=== PATIENT | female | born 1955 | race Caucasian/White ===

== ENCOUNTER 2020-12-15 06:28 | Day surgery (SDC) | payer BC, MEDICARE ==
[2020-12-12 14:32] VITALS: BMI 22.6
[~2020-12-15 06:28] MED LIST: ALPRAZolam 0.25 MG TAB PO PRN; ASPIRIN 325 MG TAB PO STA; HEPARIN SODIUM,PORCINE 10,000 UNIT in SODIUM CHLORIDE 0.9% 1,000 ML IRRIGATION PRN; HEPARIN SODIUM,PORCINE 2,500 UNIT in SODIUM CHLORIDE 0.9% 250 ML IRRIGATION PRN; NITROGLYCERIN SL TABS 0.4 MG TAB SUBLINGUAL PRN; SODIUM CHLORIDE 0.9% 1,000 ML in EMPTY BAG 1 BAG IV ONE
[2020-12-15 07:03] VITALS: RESP 18; TEMP 98.8
[2020-12-15] MEDS ORDERED: fentaNYL (PF) 50 MCG/ML 2 ML AMP ONE (07:12)
[2020-12-15] MEDS ORDERED: IV FLUID CONTINUATION 950 ML IV ONE (07:26)
[2020-12-15] MEDS: BENZOCAINE SPRAY 1 CAN MUCOUS MEM ONE ×2 (07:26→07:28)
[2020-12-15] MEDS ORDERED: fentaNYL (PF) 50 MCG/ML 2 ML AMP IV ONE (07:30)
[2020-12-15] MEDS ORDERED: MIDAZOLAM 2 MG/2 ML VIAL IV ONE (07:30)
[2020-12-15] MEDS ORDERED: LIDOCAINE 1% INJ 10MG/ML (20 ML MDV) ONE (08:41)
[2020-12-15] MEDS ORDERED: MIDAZOLAM 2 MG/2 ML VIAL IVP ONE (08:50)
[2020-12-15] MEDS ORDERED: LIDOCAINE 1% INJ 10MG/ML (20 ML MDV) SQ ONE (08:50)
[2020-12-15] MEDS ORDERED: IOPAMIDOL-370 100ML BTL INJ ONE (09:20)
[2020-12-15 09:28] LABS: O2 Sat Blood Gas 70.2 %
[2020-12-15 09:32] LABS: O2 Sat Blood Gas 68.7 %
--- NOTE | 2020-12-15 12:16 | P.GSCN ---
History of Present Illness Consult date: 12/15/20 Reason for Consult: Aortic stenosis, coronary artery disease of the right coronary artery Requesting physician: Sariah Lee History of present illness: This is a 65 year old active female who follows on an outpatient basis with Dr. Dago Li. 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 She has been experiencing increasing shortness of breath with activity which has gotten progressively worse over the last 2 months. She denies any chest pain, shortness of breath with rest, or syncopal episodes. She was referred to Dr. VIKAS Lee from [facility]. She underwent transthoracic echocardiogram in the office demonstrating normal left ventricular size and function with EF 55- 60%, mild left ventricular hypertrophy, no regional wall motion abnormalities, mild to moderate mitral regurgitation, bicuspid severely calcified aortic valve with valve area 0.6 cm and mean gradient 73 mmHg, moderate aortic regurgitation, moderate tricuspid regurgitation, mild pulmonic regurgitation with mild pulmonary hypertension. She was recommended to undergo heart catheterization and transesophageal echocardiogram for further evaluation which were completed today. Heart catheterization demonstrated right coronary artery ostial calcified stenosis of 85% without any other significant coronary disease. Transesophageal echocardiogram demonstrated severe aortic stenosis and mild aortic regurgitation, valve area 0.5 cm with a peak/mean gradients 135/45 mmHg, mild mitral regurgitation, biatrial enlargement, mild pulmonary hypertension, normal left ventricular function. Due to these findings consultation was placed to Dr. Loretta Wolff from cardiothoracic surgery. Review of Systems Review of systems was completed and was negative except as noted - Cardiovascular Reports as per HPI, Reports decreased exercise tolerance, Reports dyspnea on exertion, Reports shortness of breath Past Medical History Past Medical History: CVA/TIA, Hyperlipidemia, Hypertension, Thyroid Disorder Additional Past Medical History / Comment(s): heart murmur,SOB at times,freq soft stools History of Any Multi-Drug Resistant Organisms: None Reported Past Surgical History: Section Additional Past Surgical History / Comment(s): anibal feet,rt hand,c sect x2,breast bx Past Anesthesia/Blood Transfusion Reactions: No Reported Reaction Additional Past Anesthesia/Blood Transfusion Reaction / Comm: no hx blood transfusion Past Psychological History: No Psychological Hx Reported Smoking Status: Former smoker Past Alcohol Use History: None Reported Past Drug Use History: None Reported Additional History: No family history of premature coronary artery disease - Past Family History Mother Family Medical History: Cancer Additional Family Medical History / Comment(s): cervical Sister(s) Family Medical History: Cancer Additional Family Medical History / Comment(s): breast Father Family Medical History: Cancer Additional Family Medical History / Comment(s): colon Medications and Allergies Home Medications Medication Instructions Recorded Confirmed Type Aspirin EC [Ecotrin Low Dose] 81 mg PO HS 12/12/20 12/15/20 History Atorvastatin [Lipitor] 40 mg PO HS 12/13/20 12/15/20 History Baclofen 10 mg PO HS 12/13/20 12/15/20 History HYDROcodone/APAP 5-325MG [[place] 1 tab PO BID PRN 12/13/20 12/15/20 History 5-325] Ibuprofen [Motrin] 800 mg PO BID PRN 12/13/20 12/15/20 History Levothyroxine Sodium [Synthroid] 25 mcg PO HS 12/13/20 12/15/20 History Metoprolol Tartrate [Lopressor] 12.5 mg PO BID 12/13/20 12/15/20 History Sertraline [Zoloft] 25 mg PO HS 12/13/20 12/15/20 History amLODIPine [Norvasc] 5 mg PO HS 12/13/20 12/15/20 History Allergies Allergy/AdvReac Type Severity Reaction Status Date / Time No Known Allergies Allergy Verified 12/15/20 06:46 Surgical - Exam Vital Signs Temp Pulse Resp BP Pulse Ox 98.8 F 54 L 18 123/60 97 12/15/20 07:02 12/15/20 07:02 12/15/20 07:02 12/15/20 07:02 12/15/20 07:02 CONSTITUTIONAL: Awake and alert, appears comfortable, cooperative, well- developed, well-nourished, no pain, no acute distress EYES: Pupils equal, round, reactive to light, normal ocular movement ENT: Moist mucous membranes without oral lesions present NECK: No masses, no bruits, trachea midline RESPIRATORY: Lungs sounds clear to auscultation bilaterally. Respirations even, nonlabored. Currently on room air with oxygen saturation 97%. Strong cough. No chest wall deformities. No clubbing or cyanosis present CARDIOVASCULAR: S1, S2 present, loud systolic murmur present. Regular rate and rhythm, sinus rhythm on telemetry. Palpable peripheral pulses bilaterally. No edema present. No calf pain or tenderness noted. No significant lower extremity varicosities noted. GASTROINTESTINAL: Abdomen soft, nontender, nondistended without masses or organomegaly noted. There is no rebound or guarding present. Active bowel sounds present 4 quadrants. GENITOURINARY: Deferred INTEGUMENTARY: Skin is warm and dry with evidence of good perfusion. NEUROLOGIC: Cranial nerves II through XII intact, normal coordination, no obvious motor or sensory deficits, speech is normal MUSKULOSKELETAL: Able to move all extremities, strength equal bilaterally, normal posture PSYCHIATRIC: Alert and oriented to person place and time, appropriate affect, intact judgment and insight Results - Imaging Additional studies: Heart catheterization and FIDEL findings reviewed Assessment and Plan Assessment: 1. Severe aortic stenosis, valve area 0.5 cm, mean gradient of 45 mmHg on FIDEL 2. Right coronary artery disease 3. Hypertension 4. Hyperlipidemia, treated 5. Hypothyroid 6. History of CVA to the right eye followed by TIA 7. Previous tobacco dependence Plan: The patient was seen and examined in the extended stay area, case was discussed with Dr. Wolff. The usual perioperative course of open heart surgery was discussed in detail with the patient, risks and benefits were reviewed, all questions were answered. Preoperative testing was initiated. The patient may be discharged home once testing has been completed to follow up in the cardiothoracic surgery office with Dr. Wolff next week December 20 at 1:30 PM. We have tentatively scheduled her for surgery December 26 as long as there are no red flags in her preoperative testing and she has obtained dental clearance. This was discussed in great detail with the patient and she is agreeable. We did attempt to call her dentist to obtain an urgent appointment, however he is closed today. Message was left and we will try to get the patient in as quickly as possible as she has not seen her dentist in about a year. We recommend continuing maximal medical therapy. The patient was advised to refrain from any strenuous lifting or pushing. More recommendations to follow. Thank you Dr. Lee for this consult Time with Patient: Greater than 30
--- NOTE | 2020-12-15 12:59 | US ---
EXAMINATION TYPE: US carotid duplex BILAT DATE OF EXAM: 12/15/2020 COMPARISON: NONE CLINICAL HISTORY: preop cardiac surgery. PreOp EXAM MEASUREMENTS: RIGHT: Peak Systolic Velocity (PSV) cm/sec ----- Right CCA: 98.7 ----- Right ICA: 151.5 ----- Right ECA: 81.4 ICA/CCA ratio: 1.5 RIGHT: End Diastole cm/sec ----- Right CCA: 18.7 ----- Right ICA: 51.2 ----- Right ECA: 0.0 LEFT: Peak Systolic Velocity (PSV) cm/sec ----- Left CCA: 87.9 ----- Left ICA: 112.9 ----- Left ECA: 72.3 ICA/CCA ratio: 1.3 LEFT: End Diastole cm/sec ----- Left CCA: 16.7 ----- Left ICA: 38.6 ----- Left ECA: 0.0 VERTEBRALS (direction of flow): Right Vertebral: Antegrade Left Vertebral: Antegrade Rhythm: Normal Silveira scale images show fairly moderate eccentric plaque at right carotid bulb level and more focal mi ld to moderate plaque left carotid bulb level. There is elevated peak systolic and end diastolic [place] in the right internal carotid artery. No increased left-sided velocities. IMPRESSION: Moderate atherosclerotic changes bilaterally right greater than left. I suspect right-si ded stenosis approaching 50% but based on velocity measurements a hemodynamic significant stenosis be tween 50-69% cannot be excluded. Criteria for Assigning % of Stenosis / Diameter reduction (Estimation based on the indirect measurements of the internal carotid artery velocities (ICA PSV). 1. Normal (no stenosis)=ICA PSV < 125 cm/s: ratio < 2.0: ICA EDV<40 cm/s. 2. Less than 50% stenosis=ICA PSV < 125 cm/s: ratio < 2.0: ICA EDV<40 cm/s. 3. 50 to 69% stenosis=ICA PSV of 125 to 230 cm/s: ration 2.0 ? 4.0: ICA EDV 40-100 cm/s. 4. Greater than 70% stenosis to near occlusion= ICA PSV > 230 cm/s: ratio > 4.0: ICA EDV > 100 cm/s. 5. Near occlusion= ICA PSV velocities may be low or undetectable: variable ratio and ICA EDV. 6. Total occlusion=unable to detect flow.
[2020-12-15 15:18] LABS: Basophils % (A) 0 %; Eosinophils # (A) 0.1 k/uL (0-0.7); Eosinophils % (A) 1 %; HCT 32.9 % (34.0-46.0); HGB 10.7 gm/dL (11.4-16.0); Lymphocytes # (A) 1.3 k/uL (1.0-4.8); Lymphocytes % (A) 18 %; MCHC 32.5 g/dL (31.0-37.0); MCV 95.5 fL (80.0-100.0); Mean Platelet Volume 7.7; Monocytes # (A) 0.6 k/uL (0-1.0); Monocytes % (A) 8 %; Neutrophils # (A) 5.4 k/uL (1.3-7.7); Neutrophils % (A) 72 %; Platelet Count 231 k/uL (150-450); RBC 3.45 m/uL (3.80-5.40); RDW 13.3 % (11.5-15.5); WBC 7.5 k/uL (3.8-10.6)
[2020-12-15 15:24] LABS: Partial Thromboplastin Time 23.4 sec (22.0-30.0); Prothrombin Time 10.4 sec (9.0-12.0)
[2020-12-15 15:32] LABS: ALT 75 U/L (4-34); AST 45 U/L (14-36); African American GFR (CKD) >90 (>60 ml/min/1.73 sqM); Albumin 3.7 g/dL (3.5-5.0); Alkaline Phosphatase 57 U/L (38-126); Anion Gap 5 mmol/L; Blood Urea Nitrogen 16 mg/dL (7-17); Calcium 8.8 mg/dL (8.4-10.2); Carbon Dioxide 27 mmol/L (22-30); Chloride 107 mmol/L (98-107); Glucose 103 mg/dL (74-99); Magnesium 1.9 mg/dL (1.6-2.3); Non-African American GFR(CKD) >90 (>60 ml/min/1.73 sqM); Potassium 4.2 mmol/L (3.5-5.1); Sodium 139 mmol/L (137-145); Total Bilirubin 0.5 mg/dL (0.2-1.3); Total Protein 5.9 g/dL (6.3-8.2)
[2020-12-15 15:55] VITALS: BP 146/64; PULSE 64
--- NOTE | 2020-12-15 15:55 | CC ---
CARDIAC CATHETERIZATION REPORT DATE OF SERVICE: 12/15/2020. PROCEDURE: Right heart catheterization and coronary angiography. PERFORMED BY: Dr. Becky Lee. Moderate conscious sedation time was 30 minutes. Patient was administered Versed. Oxygen saturation, hemodynamics and EKG were monitored closely. CLINICAL INFORMATION: Mrs. Monique Silva is a 65-year-old lady with a past history of smoking. She has hypertension, hyperlipidemia and recently had increasing symptoms of shortness of breath. Clinical evaluation revealed severe aortic stenosis. Patient was advised a transesophageal echo and a right and left heart catheterization and brought in for the procedure electively after due discussion. Patient had a transesophageal echo which confirmed severe aortic stenosis. PROCEDURE NOTE: Under local anesthesia and strict aseptic precautions, a 6-Upper Sorbian introducer was placed in the right femoral artery and an 8-Upper Sorbian introducer in the right femoral vein. Using a balloon-tipped catheter, I performed right heart catheterization, checked the hemodynamics and saturations, and the catheter was left in the pulmonary artery. Thermodilution cardiac output was then performed. Subsequently, using JR4 and a JL3.5 diagnostic catheters, I performed selective coronary angiography. I did not cross the aortic valve. The arterial sheath was taken out and Angio-Seal device used to secure hemostasis, and the venous sheath was taken out and manual compression was employed. The patient was then sent back to the extended-stay unit. The results were discussed in detail with the patient as well as her . I am recommending aortic valve replacement and a single vein graft or a right internal mammary artery graft to the right coronary artery, which has an ostial lesion of 80% or more. CARDIAC CATHETERIZATION FINDINGS: The right atrial pressure was 7 mmHg, right ventricular pressure was 40/7, pulmonary arterial pressure was 40/13 with a mean of 23, pulmonary capillary wedge pressure was 23 mmHg. The thermodilution cardiac output was 4.4 L and Angel cardiac output was 6.0 L. The pulmonary arterial saturation was 69% and femoral arterial saturation was 95%. There was no oxygen step-up. CORONARY ANGIOGRAPHY FINDINGS: RIGHT CORONARY ARTERY: This is a dominant vessel. There is moderate calcification at the ostium. There is 80% ostial lesion best seen in the ALANIZ cranial projection. Distally the vessel is of large caliber, bifurcates into a small PLV, large PDA and supplies sizable amount of myocardium. No other areas of significant disease noted. LEFT MAIN CORONARY ARTERY: Short patent vessel, free of significant disease. It bifurcates into LAD and circumflex. LEFT ANTERIOR DESCENDING CORONARY ARTERY: Good-caliber vessel extends along the anterior wall, gives off septal and diagonal branches, runs all the way to the apex, has minor irregularities and no significant disease. LEFT POSTERIOR CIRCUMFLEX CORONARY ARTERY: Good-caliber, good-distribution vessel, gives off a large obtuse marginal that runs laterally and distal posterolateral branch which has minor irregularities. No significant disease. FINAL IMPRESSION: This patient has mild pulmonary hypertension, no shunt with no oxygen step-up, normal cardiac output. She has a right-dominant system with an ostial calcified 80% right coronary stenosis. The left main, LAD and circumflex have minor irregularities. No significant disease. RECOMMENDATIONS: I am recommending aortic valve replacement and a single-vessel graft to the RCA, probably a right internal mammary artery graft. Details and findings were reviewed with the patient and her , and I also spoke to Dr. Wolff, who will see the patient hopefully early next week. She will be discharged later on today if she remains stable. MMODL / IJN: [id number] /
--- NOTE | 2020-12-15 16:05 | P.TEE ---
Indications for Procedure(s): Aortic stenosis Date of Procedure: 12/15/20 Preoperative Diagnosis: Severe aortic stenosis Postoperative Diagnosis: Severe aortic stenosis Procedure(s) Performed: FIDEL Description of Procedure(s): INDICATION: This is a 65-year-old female with symptoms of exertional shortness of breath who was evaluated by Dr. VIKAS Lee and were found to have evidence of severe aortic stenosis by transthoracic echocardiogram. Patient is advised to have a FIDEL examination. Patient was explained the risks and benefits of the procedure CONSENT: . Informed verbal consent was obtained from the patient PROCEDURE: Patient was brought to the lab in a fasting state. Patient was prepped and draped in the usual fashion. She was given 2 mg of Versed and 50 g of fentanyl for sedation. The throat was sprayed with Hurricaine. A lubricated Omni probe was advanced into the esophagus and stomach without difficulty. Multiple views were obtained both from the summer can esophagus. Patient tolerated the procedure well. Color, pulsed and continuous wave Doppler studies were performed. Saline contrast bubble injection is also performed. Patient tolerated the procedure well. No immediate complications. FINDINGS: The aortic valve is tricuspid with limited only excursion. By planimetry valve area of 0.5 cm was obtained. There is mild eccentric aortic regurgitation. The aortic root diameter is normal. There is mild mitral regurgitation. Otherwise mitral valve appeared to be normal. There is mild tricuspid regurgitation with [id number] pulmonary hypertension. There is biatrial enlargement. The left atrial appendage is free of any clot. The interatrial septum appeared to be intact without any definite shunt. Saline contrast bubble injection did not show any crossing of the bubbles. Left ventricular function is preserved. The aorta showed mild plaque. IMPRESSION: #1. Severe aortic stenosis which is calcific in nature with mild eccentric aortic regurgitation #2. Mild mitral and tricuspid regurgitation. #3. Biatrial enlargement. #4. No clot in the left atrial appendage. #5. No PFO #6. Normal LV function PLAN: . Proceed with cardiac catheterization. Patient's needs aortic valve replacement
[2020-12-15 16:11] LABS: Cholesterol 111 mg/dL (<200); HDL Cholesterol 52 mg/dL (40-60); LDL Cholesterol,Calculated 38 mg/dL (0-99); Triglycerides 107 mg/dL (<150)
--- NOTE | 2020-12-15 16:20 | XR ---
EXAMINATION TYPE: XR chest 2V DATE OF EXAM: 12/15/2020 COMPARISON: None HISTORY: 65-year-old female preop open heart surgery. TECHNIQUE: Frontal and lateral views FINDINGS: Heart borderline to mildly enlarged. Mild interstitial prominence of the chronic appearance. No conso lidation or pleural effusion. Aorta within normal limits. IMPRESSION: Borderline to mild cardiomegaly. Chronic appearing changes. No definite acute process.
[2020-12-15 16:34] LABS: Appearance,Urine Clear (Clear); Bacteria,Urine Rare /hpf; Bilirubin,Urine Negative (Negative); Blood,Urine Small (Negative); Color,Urine Light Yellow; Glucose,Urine (UA) Negative (Negative); Ketones,Urine Negative (Negative); Leukocyte Esterase,Urine Negative (Negative); Nitrite,Urine Negative (Negative); PH, Urine 7.5 (5.0-8.0); Protein,Urine Negative (Negative); RBC,Urine 6 /hpf (0-5); Specific Gravity,Urine 1.026 (1.001-1.035); Squamous Epithelial Cell,Urine <1 /hpf (0-4); Urobilinogen,Urine <2.0 mg/dL (<2.0); WBC,Urine 2 /hpf (0-5)
[2020-12-15 23:48] LABS: Hemoglobin A1C 5.4 % (4.0-6.0)
[2020-12-16 04:38] LABS: Hepatitis A Antibody IgM Non-Reactive (Non-Reactive); Hepatitis B Core IgM Non-Reactive (Non-Reactive); Hepatitis B Surface Antigen Non-Reactive (Non-Reactive); Hepatitis C IgG Antibody Non-Reactive (Non-Reactive)
--- NOTE | 2020-12-20 10:55 | P.VSCSTY ---
Greater Saphenous Vein Mapping This is bilateral lower extremity greater saphenous vein mapping. Date of service: 12/15/2020 Vein quality and ultrasound appearance: We see no intraluminal thrombus or wall changes. Vein size groin right : 5.3 x 4.5 groin left: 5.0 x 4.3 High thigh right: 3.1 x 2.9 high thigh left: 3.1 x 2.5 Mid thigh right: 3.1 x 3.4 mid thigh left: 3.3 x 3.1 Above-knee right: 3.4 x 4.5above-knee left: 2.8 x 2.6 Below knee right: 2.4 x 2.2 below-knee left: 2.6 x 2.7 Mid calf right: 2.5 x 2.2 mid calf left: 2.6 x 2.1 Ankle right: 1.7 x 1.7 ankle left: 2 x 1.9 Impression: Usable bilateral greater saphenous vein. Ankle area a bit small bilaterally, especially on the right.
== END 2020-12-15 15:18 | disposition home or self-care (01) ==
LOC: CATHCVL 06:28
PROVIDERS: ATTEND Internal Medicine Interventional Cardiology
DX: I08.3 Combined rheumatic disorders of mitral, aortic and tricuspid valves (principal); I27.20 Pulmonary hypertension, unspecified; I25.10 Atherosclerotic heart disease of native coronary artery without angina pectoris; R06.02 Shortness of breath; R00.2 Palpitations; R07.89 Other chest pain; I10 Essential (primary) hypertension; E78.00 Pure hypercholesterolemia, unspecified; E03.9 Hypothyroidism, unspecified; E78.5 Hyperlipidemia, unspecified; I77.9 Disorder of arteries and arterioles, unspecified; Z20.822 Contact with and (suspected) exposure to COVID-19; Z72.0 Tobacco use; Z79.890 Hormone replacement therapy; Z79.899 Other long term (current) drug therapy; Z86.73 Personal history of transient ischemic attack (TIA), and cerebral infarction without residual deficits; Z87.891 Personal history of nicotine dependence; Z98.890 Other specified postprocedural states; Z79.82 Long term (current) use of aspirin; Z80.9 Family history of malignant neoplasm, unspecified; Z80.49 Family history of malignant neoplasm of other genital organs; Z80.3 Family history of malignant neoplasm of breast; Z80.0 Family history of malignant neoplasm of digestive organs
CPT/HCPCS: 94150; 93312; 93320; 93325; 93456; 80061; 80053; 80074; 85018; 84443; 82810; 83735; 85025; 85610; 85730; 81001; 87070; 83036; 71046; 93970; 93880; C1760; C1769 ×3; C1894 ×2; U0003; U0005; J2250; J2001; J3010; Q9967; 86850; 86900; 86901

== ENCOUNTER 2020-12-26 05:44 | Inpatient (IN) | payer BC ==
[~2020-12-26 05:44] MED LIST changes: +ALBUMIN HUMAN 25% 50 ML IV ONE; +ALBUMIN HUMAN 5% 500 ML IVPB ONE; -ALPRAZolam 0.25 MG TAB PO PRN; +ASPIRIN 325 MG TAB PO ONE; -ASPIRIN 325 MG TAB PO STA; +ATORVASTATIN 10 MG TAB PO ONE; +CALCIUM CHLORIDE 100 MG/ML 10 ML SYRINGE IV ONE; +CHLORHEXIDINE GLUCONATE 15 ML CUP MUCOUS MEM ONE; +CLEVIDIPINE BUTYRATE 25 MG in EMPTY BAG 1 BAG IV ONE; +DEXTROSE 5% IN WATER 1,000 ML with POTASSIUM CHLORIDE 110 MEQ, MAGNESIUM SULFATE 16 MEQ... IV ONE; +DEXTROSE 5% IN WATER 1,000 ML with POTASSIUM CHLORIDE 25 MEQ, SODIUM CHLORIDE 4MEQ/ML V... IRRIGATION ONE; +HEPARIN SODIUM 1,000 UN/ML (10ML VL) IV ONE; -HEPARIN SODIUM,PORCINE 10,000 UNIT in SODIUM CHLORIDE 0.9% 1,000 ML IRRIGATION PRN; -HEPARIN SODIUM,PORCINE 2,500 UNIT in SODIUM CHLORIDE 0.9% 250 ML IRRIGATION PRN; +HEPARIN SODIUM,PORCINE 5,000 UNIT in SODIUM CHLORIDE 0.9% 500 ML 500 ML IV ONE; +INSULIN REGULAR 100 UNIT in SODIUM CHLORIDE 0.9% 100 ML IV ONE; +LACTATED RINGERS 1,000 ML IV ONE; +LACTATED RINGERS 1,000 ML IV SCH; +MAGNESIUM SULFATE MG 500 MG/ML IV ONE; +MANNITOL 25% 12.5 GM/50 ML VIAL IV ONE; +METOPROLOL TARTRATE 12.5 MG TAB PO ONE; +NITROGLYCERIN SL TABS 0.4 MG TAB SUBLINGUAL ONE; -NITROGLYCERIN SL TABS 0.4 MG TAB SUBLINGUAL PRN; +NITROGLYCERIN-D5W PMX 25 MG/250 ML BTL IV ONE; +NITROGLYCERIN-D5W PMX 50 MG in DEXTROSE/WATER 1 250ML.BAG IV ONE; +NOREPINEPHRINE 4 MG in SODIUM CHLORIDE 0.9% 250 ML IV ONE; +PAPAVERINE 360 MG in SODIUM CHLORIDE 0.9% 90 ML IV ONE; +PHENYLEPHRINE 10 MG/ML VIAL IV ONE; +PHENYLEPHRINE 40 MG in SODIUM CHLORIDE 0.9% 250 ML IV ONE; +PROTAMINE SULFATE 10 MG/ML 25 ML VIAL IV ONE; +PROTAMINE SULFATE 250 MG in EMPTY BAG 1 BAG IV ONE; +SODIUM BICARB 8.4% 50 ML SYR (1 MEQ/ML) IV ONE; +SODIUM CHLORIDE 0.9% 1,000 ML IV ONE; -SODIUM CHLORIDE 0.9% 1,000 ML in EMPTY BAG 1 BAG IV ONE; +TRANEXAMIC ACID 2,000 MG in SODIUM CHLORIDE 0.9% 80 ML IV ONE; +ceFAZolin 1,000 MG in SODIUM CHLORIDE 0.9% IRRIGATIO 1,000 ML IRRIGATION ONE; +propofoL 1,000 MG/100 ML VIAL IV ONE
[2020-12-26] MEDS ORDERED: ONDANSETRON 4 MG/2 ML VIAL ONE (06:32)
[2020-12-26] MEDS ORDERED: ONDANSETRON 4 MG/2 ML VIAL IVP ONE (06:34)
[2020-12-26] MEDS ORDERED: DEXAMETHASONE SOD PHOSPHATE 4 MG/ML 1 ML VIAL IVP ONE (06:35)
[2020-12-26] MEDS ORDERED: TRANEXAMIC ACID 1,000 MG/10 ML VIAL ONE (07:50)
[2020-12-26] MEDS ORDERED: HEPARIN SODIUM,PORCINE 10,000 UNIT/ML 1 ML VIAL ONE (07:50)
[2020-12-26] MEDS ORDERED: SODIUM CHLORIDE 0.9% IRRIG 1,000 ML BTL IRRIGATION ONE (07:50)
[2020-12-26] MEDS ORDERED: ELECTROLYTE-R (PH 7.4) 1,000 ML IV.SOLN IV ONE (07:50)
[2020-12-26] MEDS ORDERED: ALBUMIN HUMAN 5% (25gm) 500 ML VIAL IVPB ONE (07:50)
[2020-12-26] MEDS ORDERED: fentaNYL (PF) 50 MCG/ML 50 ML VIAL ONE (07:50)
[2020-12-26] MEDS ORDERED: fentaNYL (PF) 50 MCG/ML 2 ML AMP ONE (07:50)
[2020-12-26] MEDS ORDERED: INSULIN REGULAR 100 UNIT/ML VIAL ONE (07:50)
[2020-12-26] MEDS ORDERED: NITROGLYCERIN-D5W PMX 50 MG/250 ML BOTTLE IV ONE (07:50)
[2020-12-26] MEDS ORDERED: PROTAMINE SULFATE 10 MG/ML 25 ML VIAL IV ONE (07:50)
[2020-12-26] MEDS ORDERED: LIDOCAINE 2% SYG (PF) 100 MG/5 ML ONE (07:50)
[2020-12-26] MEDS ORDERED: SUCCINYLCHOLINE CHLORIDE 100 MG/5 ML SYR IV ONE (07:50)
[2020-12-26] MEDS ORDERED: ceFAZolin 1,000 MG VIAL ONE (07:50)
[2020-12-26] MEDS ORDERED: MIDAZOLAM 2 MG/2 ML VIAL ONE (07:50)
[2020-12-26] MEDS ORDERED: SODIUM CHLORIDE 0.9% 100 ML BAG ONE (07:50)
[2020-12-26] MEDS ORDERED: SODIUM CHLORIDE 0.9% 250 ML BAG ONE (07:50)
[2020-12-26] MEDS ORDERED: VECURONIUM 10 MG VIAL IV ONE (07:50)
[2020-12-26] MEDS ORDERED: PROPOFOL 10 MG/ML 20 ML VIAL IV ONE (07:50)
[2020-12-26] MEDS ORDERED: MAGNESIUM SULFATE 4 MEQ/ML 10ML VIAL ONE (07:50)
[2020-12-26 08:23] LABS: ABG Base Excess 1.4 mmol/L; ABG Glucose Whole Blood 132 mg/dL (75-99); ABG HCO3 25 mmol/L (21-25); ABG Hematocrit 32 % (34.0-46.0); ABG Ionized Calcium 4.7 mg/dL (4.5-5.3); ABG Lactic Acid Whole Blood 0.8 mmol/L (0.5-1.6); ABG PCO2 35 mmHg (35-45); ABG PH 7.46 (7.35-7.45); ABG PO2 263 mmHg (83-108); ABG Potassium Whole Blood 4.2 mmol/L (3.4-4.5); ABG Sodium Whole Blood 141 mmol/L (135-146); ABG TCO2 26 mmol/L (19-24)
[2020-12-26 09:11] LABS: ABG Base Excess -1.5 mmol/L; ABG Glucose Whole Blood 176 mg/dL (75-99); ABG HCO3 25 mmol/L (21-25); ABG Hematocrit 30 % (34.0-46.0); ABG Ionized Calcium 4.8 mg/dL (4.5-5.3); ABG Lactic Acid Whole Blood 1.5 mmol/L (0.5-1.6); ABG Oxygen Saturation 99.8 % (94-97); ABG PCO2 46 mmHg (35-45); ABG PH 7.33 (7.35-7.45); ABG PO2 261 mmHg (83-108); ABG Sodium Whole Blood 141 mmol/L (135-146); ABG TCO2 26 mmol/L (19-24)
[2020-12-26 09:56] LABS: ABG Base Excess -1.6 mmol/L; ABG Glucose Whole Blood 204 mg/dL (75-99); ABG HCO3 24 mmol/L (21-25); ABG Ionized Calcium 4.3 mg/dL (4.5-5.3); ABG Lactic Acid Whole Blood 1.1 mmol/L (0.5-1.6); ABG PCO2 43 mmHg (35-45); ABG PH 7.36 (7.35-7.45); ABG PO2 372 mmHg (83-108); ABG Sodium Whole Blood 137 mmol/L (135-146); ABG TCO2 25 mmol/L (19-24)
[2020-12-26 10:25] LABS: ABG Base Excess -1.1 mmol/L; ABG Glucose Whole Blood 149 mg/dL (75-99); ABG HCO3 24 mmol/L (21-25); ABG Ionized Calcium 4.4 mg/dL (4.5-5.3); ABG Lactic Acid Whole Blood 1.4 mmol/L (0.5-1.6); ABG PCO2 39 mmHg (35-45); ABG PH 7.39 (7.35-7.45); ABG Potassium Whole Blood 3.8 mmol/L (3.4-4.5); ABG Sodium Whole Blood 139 mmol/L (135-146); ABG TCO2 25 mmol/L (19-24)
[2020-12-26] MEDS ORDERED: Potassium Replacement Protocol 1 EACH MISC MISCELLANE PRN (13:03)
[2020-12-26] MEDS ORDERED: AMIODARONE 360 MG in DEXTROSE 5% IN WATER 200 ML IV PRN ×2 (13:03)
[2020-12-26] MEDS ORDERED: Magnesium Replacement Protocol 1 EACH MISC MISCELLANE PRN (13:03)
[2020-12-26] MEDS ORDERED: AMIODARONE 450 MG in DEXTROSE 5% IN WATER 250 ML IV PRN ×2 (13:03)
[2020-12-26] MEDS ORDERED: CALCIUM GLUCONATE 2 GM in SODIUM CHLORIDE 0.9% 100 ML IVPB PRN (13:03)
[2020-12-26] MEDS ORDERED: DEXTROSE 5% IN WATER 100 ML with AMIODARONE 150 MG IV PRN (13:03)
[2020-12-26] MEDS ORDERED: Phosphorus Replacement Protoco 1 EACH MISC MISCELLANE PRN (13:03)
[2020-12-26] MEDS ORDERED: IPRATROPIUM-ALBUTEROL 3 ML NEB INHALATION PRN (13:03)
[2020-12-26] MEDS ORDERED: BENZOCAINE/MENTHOL LOZENG 1 EACH LOZENGE MUCOUS MEM PRN (13:03)
[2020-12-26] MEDS ORDERED: hydrALAZINE HCL 20 MG/ML 1 ML VIAL IVP PRN (13:03)
[2020-12-26] MEDS: CLEVIDIPINE BUTYRATE 25 MG in EMPTY BAG 1 BAG IV SCH ×3 (13:10→17:45)
[2020-12-26 13:16] LABS: ABG Base Excess -3.4 mmol/L; ABG Glucose Whole Blood 187 mg/dL (75-99); ABG HCO3 23 mmol/L (21-25); ABG Hematocrit 22 % (34.0-46.0); ABG Lactic Acid Whole Blood 0.7 mmol/L (0.5-1.6); ABG PCO2 45 mmHg (35-45); ABG PH 7.31 (7.35-7.45); ABG PO2 >420 mmHg (83-108); ABG Potassium Whole Blood 4.7 mmol/L (3.4-4.5); ABG Sodium Whole Blood 139 mmol/L (135-146); ABG TCO2 24 mmol/L (19-24)
[2020-12-26 13:17] LABS: ABG Hematocrit 19 % (34.0-46.0)
[2020-12-26 13:18] LABS: ABG Hematocrit 20 % (34.0-46.0); ABG PO2 >420 mmHg (83-108)
[2020-12-26 13:29] LABS: Glucose,Whole Blood 79 mg/dL (75-99)
[2020-12-26] MEDS: LACTATED RINGERS 1,000 ML IV SCH (13:38)
[2020-12-26 13:50] LABS: Ionized Calcium 4.8 mg/dL (4.5-5.3)
[2020-12-26 13:54] LABS: INR 1.3 (<1.2); Partial Thromboplastin Time 32.4 sec (22.0-30.0); Prothrombin Time 13.1 sec (9.0-12.0)
[2020-12-26 13:56] LABS: Anisocytosis Slight; Basophils % (A) 0 %; Eosinophils % (A) 0 %; HCT 22.2 % (34.0-46.0); Lymphocytes # (A) 0.6 k/uL (1.0-4.8); Lymphocytes % (A) 4 %; MCH 30.3 pg (25.0-35.0); MCHC 33.2 g/dL (31.0-37.0); MCV 91.1 fL (80.0-100.0); Mean Platelet Volume 7.8; Monocytes # (A) 1.2 k/uL (0-1.0); Monocytes % (A) 9 %; Neutrophils # (A) 11.5 k/uL (1.3-7.7); Neutrophils % (A) 86 %; Platelet Count 117 k/uL (150-450); RBC 2.43 m/uL (3.80-5.40); RDW 16.7 % (11.5-15.5); WBC 13.3 k/uL (3.8-10.6)
[2020-12-26 13:57] LABS: ALT 14 U/L (4-34); AST 38 U/L (14-36); African American GFR (CKD) >90 (>60 ml/min/1.73 sqM); Albumin 2.8 g/dL (3.5-5.0); Alkaline Phosphatase 29 U/L (38-126); Anion Gap 5 mmol/L; Blood Urea Nitrogen 14 mg/dL (7-17); Calcium 8.7 mg/dL (8.4-10.2); Carbon Dioxide 26 mmol/L (22-30); Chloride 109 mmol/L (98-107); Glucose 71 mg/dL (74-99); Magnesium 2.8 mg/dL (1.6-2.3); Non-African American GFR(CKD) >90 (>60 ml/min/1.73 sqM); Sodium 140 mmol/L (137-145); Total Bilirubin 0.9 mg/dL (0.2-1.3); Total Protein 4.5 g/dL (6.3-8.2)
[2020-12-26 14:01] LABS: Glucose,Whole Blood 72 mg/dL (75-99)
[2020-12-26 14:03] LABS: ABG HCO3 27 mmol/L (21-25); ABG PCO2 51 mmHg (35-45); ABG PH 7.33 (7.35-7.45); ABG PO2 317 mmHg (83-108); ABG TCO2 28 mmol/L (19-24)
[2020-12-26 14:14] LABS: HGB 7.4 gm/dL (11.4-16.0)
[2020-12-26 14:16] LABS: Potassium 4.2 mmol/L (3.5-5.1)
[2020-12-26] MEDS ORDERED: INSULIN REGULAR 100 UNIT in SODIUM CHLORIDE 0.9% 100 ML IV SCH (14:30)
[2020-12-26] MEDS ORDERED: NOREPINEPHRINE 4 MG in SODIUM CHLORIDE 0.9% 250 ML IV SCH (14:30)
[2020-12-26] MEDS ORDERED: DEXMEDETOMIDINE/0.9% NACL(PMX) 400 MCG in EMPTY BAG 1 BAG IV SCH (14:30)
--- NOTE | 2020-12-26 14:34 | XR ---
EXAMINATION TYPE: XR chest 1V portable DATE OF EXAM: 12/26/2020 COMPARISON: Chest x-ray 12/15/2020 HISTORY: Postop cardiac surgery TECHNIQUE: Single frontal view of the chest is obtained. FINDINGS: Patient is post median sternotomy and left atrial appendage clip placement, cardiac valve replacement. There is a median sternal drain, right-sided chest tube, endotracheal tube is overlying the tracheal air column. NG tube is present however the side-port is cephalad to the gastroesophageal junction. Lung volumes are low. Heart is enlarged. Bibasilar increased attenuation is present. No si zable pneumothorax. There are overlying artifacts. Aorta is dense. Epicardial pacing leads are presen t. IMPRESSION: Postop changes. There may be a component of volume overload although findings may be due to low lung volume, there is likely basilar atelectasis, difficult to exclude small effusion. NG tub e as described.
--- NOTE | 2020-12-26 14:36 | OP ---
OPERATIVE REPORT DATE OF THE OPERATION: 12/26/2020. ATTENDING SURGEON: Dr. Leo Wolff. ASSISTANTS: Jose Carlos Telles and Milena Hernandez. PREOPERATIVE DIAGNOSES: Severe critical aortic stenosis and coronary artery disease. POSTOPERATIVE DIAGNOSES: 1. Bicuspid aortic valve stenosis. 2. Coronary artery disease. PROCEDURES: 1. Aortic valve replacement with a #21 mm Jackson Inspiris bioprosthetic aortic valve. 2. Coronary artery bypass grafting x1 with reverse saphenous vein graft off the aorta to the right coronary artery. 3. Clip ligation of the left atrial appendage with a 35 mm AtriClip. 4. Intraoperative transesophageal echocardiogram. ANESTHESIA: General. BLOOD LOSS: 500 mL. SUMMARY: Patient was brought to the operating room, placed in supine position. Following administration of general endotracheal anesthetic, placement of a [place]elli catheter, arterial line, adequate IV access, Acevedo catheter, patient was carefully prepped and draped in normal sterile fashion using chlorhexidine paint and sterile towels. A midline incision in the chest made and sternum divided. Pericardium was opened. Simultaneously the right greater saphenous vein was harvested from the groin down to the knee. All branches were doubly tied and divided and the incisions closed in 2 layers. The heart size was mildly enlarged. The aorta was soft anteriorly, did have a few palpable plaques posteriorly. The patient was heparinized with an ACT of greater than 480. The aorta and vena cava were cannulated. Once cannulated, the antegrade and retrograde cardioplegic catheters positioned in the ascending aorta and the coronary sinus. The patient was placed on bypass, cross-clamp placed, heart arrested with 1 L of antegrade followed by 500 mL retrograde cardioplegia. Retrograde cardioplegia was delivered 300 to 500 mL at the end of each 20-minute interval. First the base of the left atrial appendage was measured. A 35 mm AtriClip was secured at the base officially obliterating the left atrial appendage. Next distal anastomoses were constructed. Reverse saphenous vein graft anastomosis to the right coronary artery was constructed using a 7-0 Prolene running suture. Caliber of this vessel was 1.75 to 2 mm. Next, a transverse aortotomy incision was made 2 cm distal to the takeoff of the right coronary artery. A handheld retractor was placed. It was a very heavily calcified bicuspid aortic valve, anulus and proximal root. Great care was taken to excise the valve leaflets, debride the anulus and debride multiple calcific plaques present in the ascending aorta extending almost to the clamp. Once this was done, approximately 1 hour was taken to do this dissection, debridement and it was continuously irrigated out copiously with cold saline. It sized to a 21 mm Jackson Inspiris bioprosthetic aortic valve. The valve was prepared in the usual fashion, brought to the field and 2-0 Tycron pledgeted sutures were placed ventricularly based circumferentially. These were then passed through the sewing cuff of the valve. The valve seated and in seating it, there was a slight posterior tear in the aortic tissue which was addressed prior to closure. The valve seated well. All sutures were secured, tied and cut using the Cor-Knot ligature system device. At this point the posterior tear in the aorta was fixed with a double layered running 5-0 Prolene suture. The aortotomy incision was then closed using 2 felt strips as buttresses as the lady's aortic tissue was very fragile. Using a 4-0 Prolene vertical mattress followed by an [id number] stitch from both sides. A single proximal anastomosis was constructed on the ascending aorta using 6-0 Prolene running suture. The patient was placed head down. Complete de-airing maneuvers performed three times. One liter of warm blood retrograde cardioplegia was run. Cross-clamp was then removed. Once reperfused for period of time, the patient was brought off bypass. Came off bypass uneventfully with good hemodynamics. Protamine delivered. Patient decannulated. Atrial ventricular pacing wires were placed. Mediastinal right pleural chest tubes were placed. At this point, the sternum was closed with severe #6 sternal wires. Skin, subcutaneous tissue and fascia closed in 3 layers. No complications. Patient tolerated procedure well and was taken to the cardiovascular intensive care unit in critical but stable condition. Postoperative FIDEL showed excellent aortic valve function, no perivalvular leak and excellent left ventricular function. The patient was then taken to the cardiovascular intensive care unit in critical but stable condition. MMODL / IJN: [id number] /
[2020-12-26 15:03] LABS: Glucose,Whole Blood 116 mg/dL (75-99)
--- NOTE | 2020-12-26 15:07 | P.CNPUL ---
History of Present Illness Consult date: 12/26/20 Chief complaint: Ventilator management, post thoracotomy History of present illness: 55-year-old female patient with known history of aortic valve stenosis along with hypertension and hyperlipidemia and hypothyroidism and previous history of CVA involving the right eye, was having some exertional dyspnea. The patient underwent a cardiac echo and the patient was found to have an ejection fraction of 55-60% along with LVH mild to moderate MR, bicuspid severely calcified aortic valve with a valve area of 0.6 cm and a gradient of 73 along with moderate aortic regurgitation, moderate tricuspid regurgitation and hypertension. The patient also underwent cardiac catheterization and FIDEL for further evaluation. The cath showed right coronary artery stenosis in the order of 85% without any significant coronary artery disease. The transthoracic echocardiogram showed severe aortic stenosis with a valve area of 0.5 cm. Based on that, the patient was taken to the operating room and the patient underwent a aVR and the patient also underwent a single-vessel bypass surgery with SVG to RCA. Currently the patient is in intensive care unit. She is sedated with propofol which is running at 25 mcg/kg per minute. She is on a mechanical ventilator on assist control mode at the rate of 12 and tidal volume of 400 and FiO2 of 50% with a PEEP of 5. The rate will be increased to 29. The blood. Showed a pH of 7.33 with a pCO2 of 50 and pO2 of 317. FiO2 has been drop down to 50% already. The peak airway pressures 24. Hemodynamically, the patient is doing okay. She has a cardiac output of-0 and an index of 3.1. She is on no inotropes for now. She is on Catapres drip at 2 mg an hour with adequate blood pressure control. She has his [place] catheter in the right IJ. She has chest tubes involving the right pleural, and mediastinal. Sternum stable clean and intact for now. The chest tubes are connected and the total amount of output has been around 100 mL bloody output since the patient came in from the operating room. No evidence of any air leak at this point in time. She is producing urine output around 50 mL an hour. She is cold and the body temperature has returned back to normal Review of Systems ROS unobtainable: due to endotracheal tube Past Medical History Past Medical History: CVA/TIA, Hyperlipidemia, Hypertension, Musculoskeletal Disorder, Thyroid Disorder Additional Past Medical History / Comment(s): Calcified aortic valve/bicuspid valve with a valve area of 0.5 cm, single-vessel coronary artery disease, history of CVA with right-sided blindness, hypertension, hyperlipidemia, back & right hip pain, hypothyroidism History of Any Multi-Drug Resistant Organisms: None Reported Past Surgical History: Section, Heart Catheterization Additional Past Surgical History / Comment(s): anibal feet,rt hand,c sect x2,breast bx Past Anesthesia/Blood Transfusion Reactions: No Reported Reaction Additional Past Anesthesia/Blood Transfusion Reaction / Comment(s): no hx blood transfusion Smoking Status: Former smoker - Past Family History Mother Family Medical History: Cancer Additional Family Medical History / Comment(s): cervical Sister(s) Family Medical History: Cancer Additional Family Medical History / Comment(s): breast Father Family Medical History: Cancer Additional Family Medical History / Comment(s): colon Medications and Allergies Home Medications Medication Instructions Recorded Confirmed Type Aspirin EC [Ecotrin Low Dose] 81 mg PO HS 12/12/20 12/26/20 History Atorvastatin [Lipitor] 40 mg PO HS 12/13/20 12/26/20 History Baclofen 10 mg PO HS 12/13/20 12/26/20 History HYDROcodone/APAP 5-325MG [[place] 1 tab PO BID PRN 12/13/20 12/26/20 History 5-325] Ibuprofen [Motrin] 800 mg PO BID PRN 12/13/20 12/26/20 History Levothyroxine Sodium [Synthroid] 25 mcg PO HS 12/13/20 12/26/20 History Metoprolol Tartrate [Lopressor] 12.5 mg PO BID 12/13/20 12/26/20 History Sertraline [Zoloft] 25 mg PO HS 12/13/20 12/26/20 History amLODIPine [Norvasc] 5 mg PO HS 12/13/20 12/26/20 History Allergies Allergy/AdvReac Type Severity Reaction Status Date / Time No Known Allergies Allergy Verified 12/26/20 06:04 Physical Exam Vitals: Vital Signs Temp Pulse Resp BP BP Pulse Ox 12/26/20 06:11 130/67 12/26/20 06:07 97.9 F 53 L 18 135/69 97 Intake and Output 12/26/20 12/26/20 12/26/20 06:59 14:59 22:59 Intake Total 100 1329 Output Total 2200 Balance 100 -871 Intake: IV 100 51 Blood Product 1278 Ffp 24 Cpd Unit 343 [id number] Ffp 24 Cpd Unit 335 [id number] Platelet Pheresis Pas 290 Psoralen Unit [id number] Rc As-1 Unit 310 [id number] Output: Urine 400 Estimated Blood Loss 1800 Other: Weight 57.6 kg Gen. appearance she is calm and comfortable likely distress still sedated Head exam was generally normal. There was no scleral icterus or corneal arcus. Mucous membranes were moist. Neck was supple and without jugular venous distension, thyromegaly, or carotid bruits. Carotids were easily palpable bilaterally. There was no adenopathy. The patient has a right IJ [place] catheter Lungs sounds are equal and symmetrical breath sounds bilaterally and the patient is a right pleural and mediastinal chest tube Cardiac exam revealed the PMI to be normally situated and sized. The rhythm was regular and no extrasystoles were noted during several minutes of auscultation. The first and second heart sounds were normal and physiologic splitting of the second heart sound was noted. There were no murmurs, rubs, clicks, or gallops. Abdominal exam revealed normal bowel sounds. The abdomen was soft, non-tender, and without masses, organomegaly, or appreciable enlargement of the abdominal aorta. Examination of the extremities revealed easily palpable radial, femoral and pedal pulses. There was no cyanosis, clubbing or edema. Examination of the skin revealed no evidence of significant rashes, suspicious appearing nevi or other concerning lesions. Neurologic sedated Results - Laboratory Findings CBC and BMP: 12/26/20 13:30 12/26/20 13:30 ABG ABG pH 7.33 (7.35-7.45) L 12/26/20 13:59 ABG pCO2 51 mmHg (35-45) H 12/26/20 13:59 ABG pO2 317 mmHg (83-108) H 12/26/20 13:59 ABG O2 Saturation 100.0 % (94-97) H 12/26/20 13:59 PT/INR, D-dimer PT 13.1 sec (9.0-12.0) H 12/26/20 13:30 INR 1.3 (<1.2) H 12/26/20 13:30 Abnormal lab findings: Abnormal Labs 12/15/20 12/26/20 12/26/20 14:32 08:25 09:13 WBC RBC Hgb Hct RDW Plt Count Neutrophils # Lymphocytes # Monocytes # PT INR APTT ABG pH 7.46 H 7.33 L ABG pCO2 46 H ABG pO2 263 H 261 H ABG HCO3 ABG Total CO2 26 H 26 H ABG O2 Saturation 100.0 H 99.8 H ABG Hematocrit 32 L 30 L ABG Potassium ABG Ionized Calcium ABG Glucose 132 H 176 H Hemoglobin 10.3 L 9.7 L Chloride Glucose POC Glucose (mg/dL) Magnesium AST Alkaline Phosphatase Total Protein Albumin Arterial Blood Potassium Arterial Blood Glucose 132 H 176 H Crossmatch See Detail 12/26/20 12/26/20 12/26/20 09:28 09:58 10:07 WBC RBC Hgb Hct RDW Plt Count Neutrophils # Lymphocytes # Monocytes # PT INR APTT ABG pH 7.31 L ABG pCO2 ABG pO2 >420 H 372 H >420 H ABG HCO3 ABG Total CO2 25 H 25 H ABG O2 Saturation 100.0 H 100.0 H 100.0 H ABG Hematocrit 22 L 19 L* 20 L* ABG Potassium 4.7 H ABG Ionized Calcium 4.0 L 4.3 L 4.4 L ABG Glucose 187 H 204 H 149 H Hemoglobin 7.2 L 6.2 L* 6.4 L* Chloride Glucose POC Glucose (mg/dL) Magnesium AST Alkaline Phosphatase Total Protein Albumin Arterial Blood Potassium 4.7 H Arterial Blood Glucose 187 H 204 H 149 H Crossmatch 12/26/20 12/26/20 12/26/20 13:30 13:30 13:30 WBC 13.3 H RBC 2.43 L Hgb 7.4 L D Hct 22.2 L RDW 16.7 H Plt Count 117 L Neutrophils # 11.5 H Lymphocytes # 0.6 L Monocytes # 1.2 H PT 13.1 H INR 1.3 H APTT 32.4 H ABG pH ABG pCO2 ABG pO2 ABG HCO3 ABG Total CO2 ABG O2 Saturation ABG Hematocrit ABG Potassium ABG Ionized Calcium ABG Glucose Hemoglobin Chloride 109 H Glucose 71 L POC Glucose (mg/dL) Magnesium 2.8 H AST 38 H Alkaline Phosphatase 29 L Total Protein 4.5 L Albumin 2.8 L Arterial Blood Potassium Arterial Blood Glucose Crossmatch 12/26/20 12/26/20 13:59 14:00 WBC RBC Hgb Hct RDW Plt Count Neutrophils # Lymphocytes # Monocytes # PT INR APTT ABG pH 7.33 L ABG pCO2 51 H ABG pO2 317 H ABG HCO3 27 H ABG Total CO2 28 H ABG O2 Saturation 100.0 H ABG Hematocrit ABG Potassium ABG Ionized Calcium ABG Glucose Hemoglobin Chloride Glucose POC Glucose (mg/dL) 72 L Magnesium AST Alkaline Phosphatase Total Protein Albumin Arterial Blood Potassium Arterial Blood Glucose Crossmatch - Diagnostic Findings Chest x-ray: image reviewed Assessment and Plan Plan: 1 aortic valve replacement and single-vessel bypass surgery with SVG to RCA and a left atrial clipping and the patient is currently postop day #0. The patient is was dynamically stable. The patient is still intubated on a mechanical ventilator. She is on no pressors. She has adequate cardiac output and index for now. 2 post thoracotomy, currently intubated on a mechanical ventilator. Chest x-ray was noted. Blood gases was noted. This is a ventilator changes were done. 3 hypertension, currently on Plavix. For blood pressure control running at 2 mg an hour 4 history of CVA with right eye blindness 5 hypertension 6 hyperlipidemia 7 hypothyroidism 8 degenerative arthritis with chronic back and hip pain Plan Continue ventilator support and the patient is noted was increased up to 20 and FiO2 has been brought down to 50% Gradually weaned off the sedation Check weaning parameters and proceed with his breathing trial once the patient is fully awake and she is able to give adequate weaning parameters. Meanwhile, we'll monitor the patient's hemodynamics. The Cleviprex drip is being titrated for blood pressure control. We'll attempt. She diastolic blood pressure less than 140. Monitor the output from the chest tubes Daily chest x-ray Continue to follow.
[2020-12-26] MEDS ORDERED: MUPIROCIN 2% OINT 22 GM TUBE NASAL ONE (15:30)
[2020-12-26 15:56] LABS: Glucose,Whole Blood 168 mg/dL (75-99)
[2020-12-26 16:28] LABS: Anisocytosis Slight; Basophils % (A) 0 %; Eosinophils % (A) 0 %; HCT 24.1 % (34.0-46.0); Lymphocytes # (A) 0.9 k/uL (1.0-4.8); Lymphocytes % (A) 7 %; MCHC 33.2 g/dL (31.0-37.0); MCV 90.4 fL (80.0-100.0); Mean Platelet Volume 7.9; Monocytes # (A) 1.2 k/uL (0-1.0); Monocytes % (A) 9 %; Neutrophils # (A) 10.3 k/uL (1.3-7.7); Neutrophils % (A) 83 %; Platelet Count 147 k/uL (150-450); RBC 2.67 m/uL (3.80-5.40); RDW 17.1 % (11.5-15.5); WBC 12.4 k/uL (3.8-10.6)
[2020-12-26] MEDS: IPRATROPIUM-ALBUTEROL 3 ML NEB INHALATION SCH ×2 (16:35→20:01)
[2020-12-26] MEDS ORDERED: BENZOCAINE SPRAY 1 CAN TOPICAL STA (16:39)
[2020-12-26] MEDS ORDERED: BENZOCAINE SPRAY 1 CAN MUCOUS MEM PRN (16:39)
[2020-12-26 17:05] LABS: Glucose,Whole Blood 185 mg/dL (75-99)
[2020-12-26] MEDS: ONDANSETRON 4 MG/2 ML VIAL IVP PRN (17:12)
[2020-12-26] MEDS: ACETAMINOPHEN IV (For NPO) 1,000 MG in EMPTY BAG 1 BAG IVPB SCH ×2 (17:49→23:04)
[2020-12-26 17:59] LABS: Glucose,Whole Blood 163 mg/dL (75-99)
[2020-12-26 18:09] LABS: Anisocytosis Slight; Basophils % (A) 0 %; Eosinophils # (A) 0.1 k/uL (0-0.7); Eosinophils % (A) 1 %; HCT 22.8 % (34.0-46.0); HGB 7.7 gm/dL (11.4-16.0); Lymphocytes # (A) 0.5 k/uL (1.0-4.8); Lymphocytes % (A) 4 %; MCH 30.5 pg (25.0-35.0); MCHC 33.7 g/dL (31.0-37.0); MCV 90.4 fL (80.0-100.0); Mean Platelet Volume 8.4; Monocytes # (A) 0.8 k/uL (0-1.0); Monocytes % (A) 8 %; Neutrophils # (A) 9.2 k/uL (1.3-7.7); Neutrophils % (A) 87 %; Platelet Count 158 k/uL (150-450); RBC 2.53 m/uL (3.80-5.40); RDW 17.1 % (11.5-15.5); WBC 10.6 k/uL (3.8-10.6)
[2020-12-26] MEDS: KETOROLAC 15 MG/ML 1 ML VIAL IVP SCH ×2 (18:43→23:03)
[2020-12-26 19:05] LABS: Glucose,Whole Blood 136 mg/dL (75-99)
[2020-12-26 19:56] LABS: Glucose,Whole Blood 114 mg/dL (75-99)
[2020-12-26] MEDS: ATORVASTATIN 40 MG TAB PO SCH (20:13)
[2020-12-26] MEDS: HEPARIN SODIUM,PORCINE 5,000 UNIT/ML 1 ML VIAL SQ SCH (20:13)
[2020-12-26] MEDS: LEVOTHYROXINE 25 MCG TAB PO SCH (20:13)
[2020-12-26 20:48] LABS: Glucose,Whole Blood 106 mg/dL (75-99)
[2020-12-26 21:04] LABS: ABG Base Excess 0.5 mmol/L; ABG HCO3 25 mmol/L (21-25); ABG Oxygen Saturation 98.3 % (94-97); ABG PCO2 41 mmHg (35-45); ABG PO2 99 mmHg (83-108); ABG TCO2 27 mmol/L (19-24); Allen Test Performed? Yes
[2020-12-26] MEDS: SERTRALINE 25 MG TAB PO SCH (21:20)
[2020-12-26 21:56] LABS: Glucose,Whole Blood 127 mg/dL (75-99)
[2020-12-26 22:54] LABS: Glucose,Whole Blood 122 mg/dL (75-99)
[2020-12-26 23:59] LABS: Glucose,Whole Blood 133 mg/dL (75-99)
[2020-12-27] MEDS ORDERED: HYDROcodone/APAP 5-325MG 1 EACH TAB PO PRN (00:19)
[2020-12-27 00:53] LABS: Glucose,Whole Blood 109 mg/dL (75-99)
[2020-12-27 01:58] LABS: Glucose,Whole Blood 114 mg/dL (75-99)
[2020-12-27] MEDS: HYDROcodone/APAP 5-325MG 1 EACH TAB PO PRN ×2 (02:45→06:26)
[2020-12-27 02:53] LABS: Glucose,Whole Blood 127 mg/dL (75-99)
[2020-12-27] MEDS: ONDANSETRON 4 MG/2 ML VIAL IVP PRN ×2 (02:56→12:21)
[2020-12-27] MEDS: HEPARIN SODIUM,PORCINE 5,000 UNIT/ML 1 ML VIAL SQ SCH ×3 (03:58→20:20)
[2020-12-27] MEDS: METOCLOPRAMIDE 5 MG/ML 2 ML VIAL IVP PRN ×2 (03:58→15:13)
[2020-12-27 04:06] LABS: Glucose,Whole Blood 141 mg/dL (75-99)
[2020-12-27 04:19] LABS: Anisocytosis Slight; Basophils % (A) 0 %; Eosinophils % (A) 0 %; HCT 23.2 % (34.0-46.0); Lymphocytes # (A) 1.3 k/uL (1.0-4.8); Lymphocytes % (A) 8 %; MCH 31.2 pg (25.0-35.0); MCHC 34.3 g/dL (31.0-37.0); MCV 90.9 fL (80.0-100.0); Mean Platelet Volume 9.1; Monocytes # (A) 1.3 k/uL (0-1.0); Monocytes % (A) 9 %; Neutrophils # (A) 12.5 k/uL (1.3-7.7); Neutrophils % (A) 82 %; Platelet Count 168 k/uL (150-450); RBC 2.55 m/uL (3.80-5.40); RDW 17.2 % (11.5-15.5); WBC 15.2 k/uL (3.8-10.6)
[2020-12-27 04:37] LABS: Ionized Calcium 4.8 mg/dL (4.5-5.3)
[2020-12-27 04:45] LABS: ALT 18 U/L (4-34); AST 67 U/L (14-36); African American GFR (CKD) >90 (>60 ml/min/1.73 sqM); Albumin 3.1 g/dL (3.5-5.0); Alkaline Phosphatase 41 U/L (38-126); Anion Gap 8 mmol/L; Blood Urea Nitrogen 19 mg/dL (7-17); Calcium 8.3 mg/dL (8.4-10.2); Carbon Dioxide 22 mmol/L (22-30); Chloride 107 mmol/L (98-107); Glucose 123 mg/dL (74-99); Magnesium 2.2 mg/dL (1.6-2.3); Non-African American GFR(CKD) 79 (>60 ml/min/1.73 sqM); Potassium 4.8 mmol/L (3.5-5.1); Sodium 137 mmol/L (137-145); Total Bilirubin 0.7 mg/dL (0.2-1.3); Total Protein 4.8 g/dL (6.3-8.2)
[2020-12-27 05:18] LABS: Glucose,Whole Blood 139 mg/dL (75-99)
[2020-12-27] MEDS: KETOROLAC 15 MG/ML 1 ML VIAL IVP SCH ×3 (05:20→18:45)
--- NOTE | 2020-12-27 06:23 | P.PN ---
Subjective Progress Note Date: 12/27/20 55-year-old female patient with known history of aortic valve stenosis along with hypertension and hyperlipidemia and hypothyroidism and previous history of CVA involving the right eye, was having some exertional dyspnea. The patient underwent a cardiac echo and the patient was found to have an ejection fraction of 55-60% along with LVH mild to moderate MR, bicuspid severely calcified aortic valve with a valve area of 0.6 cm and a gradient of 73 along with moderate aortic regurgitation, moderate tricuspid regurgitation and hypertension. The patient also underwent cardiac catheterization and FIDEL for further evaluation. The cath showed right coronary artery stenosis in the order of 85% without any significant coronary artery disease. The transthoracic echocardiogram showed severe aortic stenosis with a valve area of 0.5 cm. Based on that, the patient was taken to the operating room and the patient underwent a aVR and the patient also underwent a single-vessel bypass surgery with SVG to RCA. Currently the patient is in intensive care unit. She is sedated with propofol which is runni ng at 25 mcg/kg per minute. She is on a mechanical ventilator on assist control mode at the rate of 12 and tidal volume of 400 and FiO2 of 50% with a PEEP of 5. The rate will be increased to 29. The blood. Showed a pH of 7.33 with a pCO2 of 50 and pO2 of 317. FiO2 has been drop down to 50% already. The peak airway pressures 24. Hemodynamically, the patient is doing okay. She has a cardiac output of-0 and an index of 3.1. She is on no inotropes for now. She is on Catapres drip at 2 mg an hour with adequate blood pressure control. She has his [place]-Kelli catheter in the right IJ. She has chest tubes involving the right pleural, and mediastinal. Sternum stable clean and intact for now. The chest tubes are connected and the total amount of output has been around 100 mL bloody output since the patient came in from the operating room. No evidence of any air leak at this point in time. She is producing urine output around 50 mL an hour. She is cold and the body temperature has returned back to normal 12/27/2020 the patient is being seen for follow-up. The patient was extubated yesterday without any major issues and currently she is on oxygen at 5 L with a pulse ox of 88-90%. Hemodynamically, the patient is doing well. She is off cleviprex for now.. Her most recent cardiac index is 2.7. She is producing adequate amount of urine output. The chest x-ray from today shows some small effusion the left lung base. [place] catheter good location. The patient has a right-sided pleural chest tube and a mediastinal chest tube and that is no evidence of any air leak and the chest x-ray is not showing any evidence of pneumothorax. Lungs are well expanded. There are some atelectatic changes in lung bases bilaterally. Pulmonary artery pressure is low at 20/10 and the patient is going to receive some more volume today. Output from the chest tube has been a total of 200 mL since arrival from the operating room. Note that both of the chest tubes are connected at this point in time. As mentioned, no evidence of any air leak and the patient is using incentive spirometer. Surgical wound site is dry clean and intact. Objective - Vital Signs Vital signs: Vital Signs Temp 98.4 F 12/26/20 20:00 Pulse 70 12/27/20 06:00 Resp 24 12/27/20 06:00 BP 128/54 12/27/20 06:00 Pulse Ox 94 L 12/27/20 06:00 Intake & Output 12/26/20 12/26/20 12/27/20 06:59 18:59 06:59 Intake Total 100 1878.397 838.285 Output Total 2835 695 Balance 100 -956.603 143.285 Weight 57.6 kg 66.6 kg Intake: IV 100 571 794 ACETAMINOPHEN IV (For NPO 100 100 ) 1,000 mg In Empty Bag 1 bag @ 400 mls/hr IVPB Q6HR [facility] Rx#:[id number] CO/CI 120 140 Lactated Ringers 1,000 ml 250 500 @ 50 mls/hr IV .Q20H [facility] Rx#:[id number] ceFAZolin 2 gm In Sodium 50 Chloride 0.9% 50 ml @ 100 mls/hr IVPB Q8HR [facility] Rx# :[id number] pressure bags 54 Intake, IV Titration 29.397 44.285 Amount Clevidipine Butyrate 25 21.933 15.467 mg In Empty Bag 1 bag @ 1 MG/HR 2 mls/hr IV .Q24H [facility] Rx#:[id number] Dexmedetomidine/0.9% NaCl 1.368 21.36 (Pmx) 400 mcg In Empty Bag 1 bag @ Titrate IV . Q0M [facility] Rx#:[id number] Insulin Regular 100 unit 4.368 7.458 In Sodium Chloride 0.9% 100 ml @ Per Protocol IV .Q0M [facility] Rx#:[id number] propofoL 1,000 mg In 1.728 Empty Bag 1 bag @ Titrate IV .Q0M [facility] Rx#: [id number] Blood Product 1278 Ffp 24 Cpd Unit 343 [id number] Ffp 24 Cpd Unit 335 [id number] Platelet Pheresis Pas 290 Psoralen Unit [id number] Rc As-1 Unit 310 [id number] Output: Chest Tube Drainage 100 300 Right Pleural/Mediastinal 100 300 Urine 935 395 Estimated Blood Loss 1800 Other: Voiding Method Indwelling Catheter Indwelling Catheter ABP, PAP, CO, CI - Last Documented Arterial Blood Pressure 117/38 Pulmonary Artery Pressure 13/5 Cardiac Output 4.1 Cardiac Index 3.7 - Exam Gen. appearance she is calm and comfortable extubated, currently on 5 L of oxygen by nasal cannula Head exam was generally normal. There was no scleral icterus or corneal arcus. Mucous membranes were moist. Neck was supple and without jugular venous distension, thyromegaly, or carotid bruits. Carotids were easily palpable bilaterally. There was no adenopathy. The patient has a right IJ [place] catheter Lungs sounds are equal and symmetrical breath sounds bilaterally and the patient is a right pleural and mediastinal chest tube Cardiac exam revealed the PMI to be normally situated and sized. The rhythm was regular and no extrasystoles were noted during several minutes of auscultation. The first and second heart sounds were normal and physiologic splitting of the second heart sound was noted. There were no murmurs, rubs, clicks, or gallops. Abdominal exam revealed normal bowel sounds. The abdomen was soft, non-tender, and without masses, organomegaly, or appreciable enlargement of the abdominal aorta. Examination of the extremities revealed easily palpable radial, femoral and pedal pulses. There was no cyanosis, clubbing or edema. Examination of the skin revealed no evidence of significant rashes, suspicious appearing nevi or other concerning lesions. Neurologic , no focal neurological deficit and the patient is awake and alert 3 - Labs CBC & Chem 7: 12/27/20 04:00 12/27/20 04:00 Labs: Abnormal Lab Results - Last 24 Hours (Table) 12/15/20 12/26/20 12/26/20 Range/Units 14:32 08:25 09:13 WBC (3.8-10.6) k/uL RBC (3.80-5.40) m/uL Hgb (11.4-16.0) gm/dL Hct (34.0-46.0) % RDW (11.5-15.5) % Plt Count (150-450) k/uL Neutrophils # (1.3-7.7) k/uL Lymphocytes # (1.0-4.8) k/uL Monocytes # (0-1.0) k/uL PT (9.0-12.0) sec INR (<1.2) APTT (22.0-30.0) sec Fibrinogen (200-500) mg/dL ABG pH 7.46 H 7.33 L (7.35-7.45) ABG pCO2 46 H (35-45) mmHg ABG pO2 263 H 261 H (83-108) mmHg ABG HCO3 (21-25) mmol/L ABG Total CO2 26 H 26 H (19-24) mmol/L ABG O2 Saturation 100.0 H 99.8 H (94-97) % ABG Hematocrit 32 L 30 L (34.0-46.0) % ABG Potassium (3.4-4.5) mmol/L ABG Ionized Calcium (4.5-5.3) mg/dL ABG Glucose 132 H 176 H (75-99) mg/dL Hemoglobin 10.3 L 9.7 L (11.4-16.0) gm/dL Chloride (98-107) mmol/L BUN (7-17) mg/dL Glucose (74-99) mg/dL POC Glucose (mg/dL) (75-99) mg/dL Calcium (8.4-10.2) mg/dL Magnesium (1.6-2.3) mg/dL AST (14-36) U/L Alkaline Phosphatase (38-126) U/L Total Protein (6.3-8.2) g/dL Albumin (3.5-5.0) g/dL Arterial Blood Potassium (3.4-4.5) mmol/L Arterial Blood Glucose 132 H 176 H (75-99) mg/dL Crossmatch See Detail 12/26/20 12/26/20 12/26/20 Range/Units 09:28 09:58 10:07 WBC (3.8-10.6) k/uL RBC (3.80-5.40) m/uL Hgb (11.4-16.0) gm/dL Hct (34.0-46.0) % RDW (11.5-15.5) % Plt Count (150-450) k/uL Neutrophils # (1.3-7.7) k/uL Lymphocytes # (1.0-4.8) k/uL Monocytes # (0-1.0) k/uL PT (9.0-12.0) sec INR (<1.2) APTT (22.0-30.0) sec Fibrinogen (200-500) mg/dL ABG pH 7.31 L (7.35-7.45) ABG pCO2 (35-45) mmHg ABG pO2 >420 H 372 H >420 H (83-108) mmHg ABG HCO3 (21-25) mmol/L ABG Total CO2 25 H 25 H (19-24) mmol/L ABG O2 Saturation 100.0 H 100.0 H 100.0 H (94-97) % ABG Hematocrit 22 L 19 L* 20 L* (34.0-46.0) % ABG Potassium 4.7 H (3.4-4.5) mmol/L ABG Ionized Calcium 4.0 L 4.3 L 4.4 L (4.5-5.3) mg/dL ABG Glucose 187 H 204 H 149 H (75-99) mg/dL Hemoglobin 7.2 L 6.2 L* 6.4 L* (11.4-16.0) gm/dL Chloride (98-107) mmol/L BUN (7-17) mg/dL Glucose (74-99) mg/dL POC Glucose (mg/dL) (75-99) mg/dL Calcium (8.4-10.2) mg/dL Magnesium (1.6-2.3) mg/dL AST (14-36) U/L Alkaline Phosphatase (38-126) U/L Total Protein (6.3-8.2) g/dL Albumin (3.5-5.0) g/dL Arterial Blood Potassium 4.7 H (3.4-4.5) mmol/L Arterial Blood Glucose 187 H 204 H 149 H (75-99) mg/dL Crossmatch 12/26/20 12/26/20 12/26/20 Range/Units 13:30 13:30 13:30 WBC 13.3 H (3.8-10.6) k/uL RBC 2.43 L (3.80-5.40) m/uL Hgb 7.4 L D (11.4-16.0) gm/dL Hct 22.2 L (34.0-46.0) % RDW 16.7 H (11.5-15.5) % Plt Count 117 L (150-450) k/uL Neutrophils # 11.5 H (1.3-7.7) k/uL Lymphocytes # 0.6 L (1.0-4.8) k/uL Monocytes # 1.2 H (0-1.0) k/uL PT 13.1 H (9.0-12.0) sec INR 1.3 H (<1.2) APTT 32.4 H (22.0-30.0) sec Fibrinogen (200-500) mg/dL ABG pH (7.35-7.45) ABG pCO2 (35-45) mmHg ABG pO2 (83-108) mmHg ABG HCO3 (21-25) mmol/L ABG Total CO2 (19-24) mmol/L ABG O2 Saturation (94-97) % ABG Hematocrit (34.0-46.0) % ABG Potassium (3.4-4.5) mmol/L ABG Ionized Calcium (4.5-5.3) mg/dL ABG Glucose (75-99) mg/dL Hemoglobin (11.4-16.0) gm/dL Chloride 109 H (98-107) mmol/L BUN (7-17) mg/dL Glucose 71 L (74-99) mg/dL POC Glucose (mg/dL) (75-99) mg/dL Calcium (8.4-10.2) mg/dL Magnesium 2.8 H (1.6-2.3) mg/dL AST 38 H (14-36) U/L Alkaline Phosphatase 29 L (38-126) U/L Total Protein 4.5 L (6.3-8.2) g/dL Albumin 2.8 L (3.5-5.0) g/dL Arterial Blood Potassium (3.4-4.5) mmol/L Arterial Blood Glucose (75-99) mg/dL Crossmatch 12/26/20 12/26/20 12/26/20 Range/Units 13:34 13:59 14:00 WBC (3.8-10.6) k/uL RBC (3.80-5.40) m/uL Hgb (11.4-16.0) gm/dL Hct (34.0-46.0) % RDW (11.5-15.5) % Plt Count (150-450) k/uL Neutrophils # (1.3-7.7) k/uL Lymphocytes # (1.0-4.8) k/uL Monocytes # (0-1.0) k/uL PT (9.0-12.0) sec INR (<1.2) APTT (22.0-30.0) sec Fibrinogen 144 L (200-500) mg/dL ABG pH 7.33 L (7.35-7.45) ABG pCO2 51 H (35-45) mmHg ABG pO2 317 H (83-108) mmHg ABG HCO3 27 H (21-25) mmol/L ABG Total CO2 28 H (19-24) mmol/L ABG O2 Saturation 100.0 H (94-97) % ABG Hematocrit (34.0-46.0) % ABG Potassium (3.4-4.5) mmol/L ABG Ionized Calcium (4.5-5.3) mg/dL ABG Glucose (75-99) mg/dL Hemoglobin (11.4-16.0) gm/dL Chloride (98-107) mmol/L BUN (7-17) mg/dL Glucose (74-99) mg/dL POC Glucose (mg/dL) 72 L (75-99) mg/dL Calcium (8.4-10.2) mg/dL Magnesium (1.6-2.3) mg/dL AST (14-36) U/L Alkaline Phosphatase (38-126) U/L Total Protein (6.3-8.2) g/dL Albumin (3.5-5.0) g/dL Arterial Blood Potassium (3.4-4.5) mmol/L Arterial Blood Glucose (75-99) mg/dL Crossmatch 12/26/20 12/26/20 12/26/20 Range/Units 15:02 15:53 15:55 WBC 12.4 H (3.8-10.6) k/uL RBC 2.67 L (3.80-5.40) m/uL Hgb 8.0 L (11.4-16.0) gm/dL Hct 24.1 L (34.0-46.0) % RDW 17.1 H (11.5-15.5) % Plt Count 147 L (150-450) k/uL Neutrophils # 10.3 H (1.3-7.7) k/uL Lymphocytes # 0.9 L (1.0-4.8) k/uL Monocytes # 1.2 H (0-1.0) k/uL PT (9.0-12.0) sec INR (<1.2) APTT (22.0-30.0) sec Fibrinogen (200-500) mg/dL ABG pH (7.35-7.45) ABG pCO2 (35-45) mmHg ABG pO2 (83-108) mmHg ABG HCO3 (21-25) mmol/L ABG Total CO2 (19-24) mmol/L ABG O2 Saturation (94-97) % ABG Hematocrit (34.0-46.0) % ABG Potassium (3.4-4.5) mmol/L ABG Ionized Calcium (4.5-5.3) mg/dL ABG Glucose (75-99) mg/dL Hemoglobin (11.4-16.0) gm/dL Chloride (98-107) mmol/L BUN (7-17) mg/dL Glucose (74-99) mg/dL POC Glucose (mg/dL) 116 H 168 H (75-99) mg/dL Calcium (8.4-10.2) mg/dL Magnesium (1.6-2.3) mg/dL AST (14-36) U/L Alkaline Phosphatase (38-126) U/L Total Protein (6.3-8.2) g/dL Albumin (3.5-5.0) g/dL Arterial Blood Potassium (3.4-4.5) mmol/L Arterial Blood Glucose (75-99) mg/dL Crossmatch 12/26/20 12/26/20 12/26/20 Range/Units 17:03 17:57 18:06 WBC (3.8-10.6) k/uL RBC 2.53 L (3.80-5.40) m/uL Hgb 7.7 L (11.4-16.0) gm/dL Hct 22.8 L (34.0-46.0) % RDW 17.1 H (11.5-15.5) % Plt Count (150-450) k/uL Neutrophils # 9.2 H (1.3-7.7) k/uL Lymphocytes # 0.5 L (1.0-4.8) k/uL Monocytes # (0-1.0) k/uL PT (9.0-12.0) sec INR (<1.2) APTT (22.0-30.0) sec Fibrinogen (200-500) mg/dL ABG pH (7.35-7.45) ABG pCO2 (35-45) mmHg ABG pO2 (83-108) mmHg ABG HCO3 (21-25) mmol/L ABG Total CO2 (19-24) mmol/L ABG O2 Saturation (94-97) % ABG Hematocrit (34.0-46.0) % ABG Potassium (3.4-4.5) mmol/L ABG Ionized Calcium (4.5-5.3) mg/dL ABG Glucose (75-99) mg/dL Hemoglobin (11.4-16.0) gm/dL Chloride (98-107) mmol/L BUN (7-17) mg/dL Glucose (74-99) mg/dL POC Glucose (mg/dL) 185 H 163 H (75-99) mg/dL Calcium (8.4-10.2) mg/dL Magnesium (1.6-2.3) mg/dL AST (14-36) U/L Alkaline Phosphatase (38-126) U/L Total Protein (6.3-8.2) g/dL Albumin (3.5-5.0) g/dL Arterial Blood Potassium (3.4-4.5) mmol/L Arterial Blood Glucose (75-99) mg/dL Crossmatch 12/26/20 12/26/20 12/26/20 Range/Units 19:04 19:54 20:46 WBC (3.8-10.6) k/uL RBC (3.80-5.40) m/uL Hgb (11.4-16.0) gm/dL Hct (34.0-46.0) % RDW (11.5-15.5) % Plt Count (150-450) k/uL Neutrophils # (1.3-7.7) k/uL Lymphocytes # (1.0-4.8) k/uL Monocytes # (0-1.0) k/uL PT (9.0-12.0) sec INR (<1.2) APTT (22.0-30.0) sec Fibrinogen (200-500) mg/dL ABG pH (7.35-7.45) ABG pCO2 (35-45) mmHg ABG pO2 (83-108) mmHg ABG HCO3 (21-25) mmol/L ABG Total CO2 (19-24) mmol/L ABG O2 Saturation (94-97) % ABG Hematocrit (34.0-46.0) % ABG Potassium (3.4-4.5) mmol/L ABG Ionized Calcium (4.5-5.3) mg/dL ABG Glucose (75-99) mg/dL Hemoglobin (11.4-16.0) gm/dL Chloride (98-107) mmol/L BUN (7-17) mg/dL Glucose (74-99) mg/dL POC Glucose (mg/dL) 136 H 114 H 106 H (75-99) mg/dL Calcium (8.4-10.2) mg/dL Magnesium (1.6-2.3) mg/dL AST (14-36) U/L Alkaline Phosphatase (38-126) U/L Total Protein (6.3-8.2) g/dL Albumin (3.5-5.0) g/dL Arterial Blood Potassium (3.4-4.5) mmol/L Arterial Blood Glucose (75-99) mg/dL Crossmatch 12/26/20 12/26/20 12/26/20 Range/Units 20:58 21:55 22:53 WBC (3.8-10.6) k/uL RBC (3.80-5.40) m/uL Hgb (11.4-16.0) gm/dL Hct (34.0-46.0) % RDW (11.5-15.5) % Plt Count (150-450) k/uL Neutrophils # (1.3-7.7) k/uL Lymphocytes # (1.0-4.8) k/uL Monocytes # (0-1.0) k/uL PT (9.0-12.0) sec INR (<1.2) APTT (22.0-30.0) sec Fibrinogen (200-500) mg/dL ABG pH (7.35-7.45) ABG pCO2 (35-45) mmHg ABG pO2 (83-108) mmHg ABG HCO3 (21-25) mmol/L ABG Total CO2 27 H (19-24) mmol/L ABG O2 Saturation 98.3 H (94-97) % ABG Hematocrit (34.0-46.0) % ABG Potassium (3.4-4.5) mmol/L ABG Ionized Calcium (4.5-5.3) mg/dL ABG Glucose (75-99) mg/dL Hemoglobin (11.4-16.0) gm/dL Chloride (98-107) mmol/L BUN (7-17) mg/dL Glucose (74-99) mg/dL POC Glucose (mg/dL) 127 H 122 H (75-99) mg/dL Calcium (8.4-10.2) mg/dL Magnesium (1.6-2.3) mg/dL AST (14-36) U/L Alkaline Phosphatase (38-126) U/L Total Protein (6.3-8.2) g/dL Albumin (3.5-5.0) g/dL Arterial Blood Potassium (3.4-4.5) mmol/L Arterial Blood Glucose (75-99) mg/dL Crossmatch 12/26/20 12/27/20 12/27/20 Range/Units 23:57 00:52 01:57 WBC (3.8-10.6) k/uL RBC (3.80-5.40) m/uL Hgb (11.4-16.0) gm/dL Hct (34.0-46.0) % RDW (11.5-15.5) % Plt Count (150-450) k/uL Neutrophils # (1.3-7.7) k/uL Lymphocytes # (1.0-4.8) k/uL Monocytes # (0-1.0) k/uL PT (9.0-12.0) sec INR (<1.2) APTT (22.0-30.0) sec Fibrinogen (200-500) mg/dL ABG pH (7.35-7.45) ABG pCO2 (35-45) mmHg ABG pO2 (83-108) mmHg ABG HCO3 (21-25) mmol/L ABG Total CO2 (19-24) mmol/L ABG O2 Saturation (94-97) % ABG Hematocrit (34.0-46.0) % ABG Potassium (3.4-4.5) mmol/L ABG Ionized Calcium (4.5-5.3) mg/dL ABG Glucose (75-99) mg/dL Hemoglobin (11.4-16.0) gm/dL Chloride (98-107) mmol/L BUN (7-17) mg/dL Glucose (74-99) mg/dL POC Glucose (mg/dL) 133 H 109 H 114 H (75-99) mg/dL Calcium (8.4-10.2) mg/dL Magnesium (1.6-2.3) mg/dL AST (14-36) U/L Alkaline Phosphatase (38-126) U/L Total Protein (6.3-8.2) g/dL Albumin (3.5-5.0) g/dL Arterial Blood Potassium (3.4-4.5) mmol/L Arterial Blood Glucose (75-99) mg/dL Crossmatch 12/27/20 12/27/20 12/27/20 Range/Units 02:51 04:00 04:00 WBC 15.2 H (3.8-10.6) k/uL RBC 2.55 L (3.80-5.40) m/uL Hgb 8.0 L (11.4-16.0) gm/dL Hct 23.2 L (34.0-46.0) % RDW 17.2 H (11.5-15.5) % Plt Count (150-450) k/uL Neutrophils # 12.5 H (1.3-7.7) k/uL Lymphocytes # (1.0-4.8) k/uL Monocytes # 1.3 H (0-1.0) k/uL PT (9.0-12.0) sec INR (<1.2) APTT (22.0-30.0) sec Fibrinogen (200-500) mg/dL ABG pH (7.35-7.45) ABG pCO2 (35-45) mmHg ABG pO2 (83-108) mmHg ABG HCO3 (21-25) mmol/L ABG Total CO2 (19-24) mmol/L ABG O2 Saturation (94-97) % ABG Hematocrit (34.0-46.0) % ABG Potassium (3.4-4.5) mmol/L ABG Ionized Calcium (4.5-5.3) mg/dL ABG Glucose (75-99) mg/dL Hemoglobin (11.4-16.0) gm/dL Chloride (98-107) mmol/L BUN 19 H (7-17) mg/dL Glucose 123 H (74-99) mg/dL POC Glucose (mg/dL) 127 H (75-99) mg/dL Calcium 8.3 L (8.4-10.2) mg/dL Magnesium (1.6-2.3) mg/dL AST 67 H (14-36) U/L Alkaline Phosphatase (38-126) U/L Total Protein 4.8 L (6.3-8.2) g/dL Albumin 3.1 L (3.5-5.0) g/dL Arterial Blood Potassium (3.4-4.5) mmol/L Arterial Blood Glucose (75-99) mg/dL Crossmatch 12/27/20 12/27/20 Range/Units 04:05 05:16 WBC (3.8-10.6) k/uL RBC (3.80-5.40) m/uL Hgb (11.4-16.0) gm/dL Hct (34.0-46.0) % RDW (11.5-15.5) % Plt Count (150-450) k/uL Neutrophils # (1.3-7.7) k/uL Lymphocytes # (1.0-4.8) k/uL Monocytes # (0-1.0) k/uL PT (9.0-12.0) sec INR (<1.2) APTT (22.0-30.0) sec Fibrinogen (200-500) mg/dL ABG pH (7.35-7.45) ABG pCO2 (35-45) mmHg ABG pO2 (83-108) mmHg ABG HCO3 (21-25) mmol/L ABG Total CO2 (19-24) mmol/L ABG O2 Saturation (94-97) % ABG Hematocrit (34.0-46.0) % ABG Potassium (3.4-4.5) mmol/L ABG Ionized Calcium (4.5-5.3) mg/dL ABG Glucose (75-99) mg/dL Hemoglobin (11.4-16.0) gm/dL Chloride (98-107) mmol/L BUN (7-17) mg/dL Glucose (74-99) mg/dL POC Glucose (mg/dL) 141 H 139 H (75-99) mg/dL Calcium (8.4-10.2) mg/dL Magnesium (1.6-2.3) mg/dL AST (14-36) U/L Alkaline Phosphatase (38-126) U/L Total Protein (6.3-8.2) g/dL Albumin (3.5-5.0) g/dL Arterial Blood Potassium (3.4-4.5) mmol/L Arterial Blood Glucose (75-99) mg/dL Crossmatch Assessment and Plan Plan: 1 aortic valve replacement and single-vessel bypass surgery with SVG to RCA and a left atrial clipping and the patient is currently postop day #1. The patient is was dynamically stable. The patient was extubated without any major difficulties. She is on no pressors. She has adequate cardiac output and index for now. PA diastolic is low and the patient is going to receive a total of 2 50 mL of albumin 5% 2 post thoracotomy, currently intubated on a mechanical ventilator. Chest x-ray was noted. Chest tubes are in place, output is minimal and the patient has no evidence of any air leak. Continue using incentive spirometer. The patient is extubated to 5 L of oxygen by nasal cannula. Patient is using the eye S and she is pulling approximately 500. 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 Keep in ICU for another 24 hours.
[2020-12-27] MEDS: ALBUMIN HUMAN 5% 250 ML in EMPTY BAG 1 BAG IVPB PRN ×6 (06:25→18:57)
[2020-12-27 06:53] LABS: Glucose,Whole Blood 131 mg/dL (75-99)
[2020-12-27 08:05] LABS: Glucose,Whole Blood 126 mg/dL (75-99)
[2020-12-27] MEDS: CLOPIDOGREL 75 MG TAB PO SCH (08:14)
[2020-12-27] MEDS: METOPROLOL TARTRATE 12.5 MG TAB PO SCH ×2 (08:14→20:21)
[2020-12-27] MEDS: ASPIRIN 325 MG TAB PO SCH (08:14)
[2020-12-27] MEDS: PANTOPRAZOLE 40 MG TABLET PO SCH (08:14)
[2020-12-27] MEDS: LACTATED RINGERS 1,000 ML IV SCH (08:17)
[2020-12-27] MEDS ORDERED: bisacodyL 10 MG SUPP RECTAL PRN (09:00)
[2020-12-27] MEDS ORDERED: PANTOPRAZOLE 40 MG/10 ML VIAL IVP SCH (09:00)
[2020-12-27 09:04] LABS: Glucose,Whole Blood 124 mg/dL (75-99)
[2020-12-27] MEDS: IPRATROPIUM-ALBUTEROL 3 ML NEB INHALATION SCH ×4 (10:16→19:28)
--- NOTE | 2020-12-27 10:18 | XR ---
EXAMINATION TYPE: XR chest 1V portable DATE OF EXAM: 12/27/2020 COMPARISON: 12/26/2020 INDICATION: Postop cardiac surgery TECHNIQUE: Single frontal view of the chest is obtained. FINDINGS: The heart size is enlarged. The pulmonary vasculature is normal. Left lower lobe infiltrate is present. Small left pleural effusion is present. Right-sided chest tube is present. This may be pulled back slightly from comparison. Mild right apical pneumothorax may be present. [place]-Kelli catheter is present on the right with tip in the more distal right main pulmonary artery. Correlate with the patient's waveforms. IMPRESSION: 1. Small residual right apical pneumothorax may be present. Chest tubes pulled back slightly from com parison. 2. Tip of the [place]-Kelli catheter is somewhat peripheral in the right main pulmonary artery region. Co rrelate with the patient waveforms. 3. Cardiomegaly. 4. Small left pleural effusion
--- NOTE | 2020-12-27 10:47 | P.CRDCN ---
History of Present Illness Consult date: 12/27/20 History of present illness: HISTORY OF PRESENT ILLNESS: This is a 65-year-old female with a past medical history significant for CVA/TIA, hypertension, hyperlipidemia, nicotine dependence, and hypothyroidism. Patient follows in the office with Dr. Lee. We have been asked to see the patient in consultation for postoperative care. Patient examined this morning in the intensive care unit. Patient is status post aortic valve replacement and CA BG 1: SVG to RCA. Postop day #1. Patient is sitting up in the chair. Patient is hemodynamically stable and not requiring any vasopressor support. Patient is on 5 L nasal cannula with oxygen saturations greater than 92%. The patient has a weak nonproductive cough. She denies chest pain or pressure. She denies shortness of breath. She reports nausea this morning. No episodes of emesis. She is receiving 500cc albumin at the time of examination. Telemetry reveals sinus mechanism. Chest xray small residual right apical pneumothorax may be present. Cardiomegaly. Small left pleural effusion. Laboratory data: WBC 15.2. Hemoglobin 8.0. Platelet count 160. Sodium 137. Potassium 4.8. BUN 19. Creatinine 0.78. Magnesium 2.2. Current home cardiac medications include amlodipine 5 mg daily, metoprolol tartrate 12.5 mg twice a day, Lipitor 40 mg daily, and aspirin 81 mg daily FIDEL: 12/15/2020 revealing severe aortic stenosis which is calcific in nature with mild eccentric aortic regurgitation. Mild mitral and tricuspid regurgitation. Biatrial enlargement. No clot in left atrial appendage. No PFO. Normal LV function. Cardiac catheterization: 12/15/2020 revealing 80% lesion of RCA. REVIEW OF SYSTEMS: At the time of my exam: CONSTITUTIONAL: Denies fever or chills. HEENT: Denies blurred vision, vision changes, or eye pain. Denies hemoptysis CARDIOVASCULAR: Denies chest pain. Denies orthopnea. Denies PND. Denies palpitations RESPIRATORY: Denies shortness of breath. GASTROINTESTINAL: Denies abdominal pain. Reports nausea. Denies vomiting. HEMATOLOGIC: Denies bleeding disorders. GENITOURINARY: Denies any blood in urine. SKIN: Denies pruitis. Denies rash. PHYSICAL EXAM: VITAL SIGNS: Reviewed. GENERAL: Well-developed in no acute distress. HEENT: Head is normocephalic. Pupils are equal, round. Sclerae anicteric. Mucous membranes of the mouth are moist. Neck supple. No JVD or thyromegaly LUNGS: Respirations even and unlabored. Lungs diminished bilaterally. HEART: Regular rate and rhythm. S1 and S2 heard. Chest tube noted with no evidence of air leak. Sternal dressing clean dry intact. Heart hugger noted. ABDOMEN: Soft. Nondistended. Nontender. EXTREMITIES: Normal range of motion. No clubbing or cyanosis. Peripheral pulses intact. No lower extremity edema NEUROLOGIC: Awake and alert. Oriented x 3. ASSESSMENT: Severe aortic stenosis, s/p bioprosthetic aortic valve replacement, 12/26/2020 Coronary artery disease, s/p CABG x 1 SVG to RCA, 12/26/2020 Hypertension Hyperlipidemia CVA with residual right-sided blindness Hypothyroidism Former nicotine dependence PLAN: Continue postoperative management per CTS Continue aspirin, plavix, lipitor, and metoprolol Increase activity as tolerated Encouraged use of incentive spirometer Continue telemetry monitoring Further recommendations pending patient course Nurse practitioner note has been reviewed by physician. Signing provider agrees with the documented findings, assessment, and plan of care. Past Medical History Past Medical History: CVA/TIA, Hyperlipidemia, Hypertension, Musculoskeletal Disorder, Thyroid Disorder Additional Past Medical History / Comment(s): Calcified aortic valve/bicuspid valve with a valve area of 0.5 cm, single-vessel coronary artery disease, history of CVA with right-sided blindness, hypertension, hyperlipidemia, back & right hip pain, hypothyroidism History of Any Multi-Drug Resistant Organisms: None Reported Past Surgical History: Section, Heart Catheterization Additional Past Surgical History / Comment(s): anibal feet,rt hand,c sect x2,breast bx Past Anesthesia/Blood Transfusion Reactions: No Reported Reaction Additional Past Anesthesia/Blood Transfusion Reaction / Comment(s): no hx blood transfusion Smoking Status: Former smoker - Past Family History Mother Family Medical History: Cancer Additional Family Medical History / Comment(s): cervical Sister(s) Family Medical History: Cancer Additional Family Medical History / Comment(s): breast Father Family Medical History: Cancer Additional Family Medical History / Comment(s): colon Medications and Allergies Home Medications Medication Instructions Recorded Confirmed Type Aspirin EC [Ecotrin Low Dose] 81 mg PO HS 12/12/20 12/26/20 History Atorvastatin [Lipitor] 40 mg PO HS 12/13/20 12/26/20 History Baclofen 10 mg PO HS 12/13/20 12/26/20 History HYDROcodone/APAP 5-325MG [[place] 1 tab PO BID PRN 12/13/20 12/26/20 History 5-325] Ibuprofen [Motrin] 800 mg PO BID PRN 12/13/20 12/26/20 History Levothyroxine Sodium [Synthroid] 25 mcg PO HS 12/13/20 12/26/20 History Metoprolol Tartrate [Lopressor] 12.5 mg PO BID 12/13/20 12/26/20 History Sertraline [Zoloft] 25 mg PO HS 12/13/20 12/26/20 History amLODIPine [Norvasc] 5 mg PO HS 12/13/20 12/26/20 History Allergies Allergy/AdvReac Type Severity Reaction Status Date / Time No Known Allergies Allergy Verified 12/26/20 06:04 Physical Exam Vitals: Vital Signs Temp Pulse Resp BP Pulse Ox 12/27/20 10:27 63 12/27/20 10:16 65 12/27/20 07:00 71 27 H 106/47 95 12/27/20 06:30 69 23 106/47 92 L 12/27/20 06:00 70 24 128/54 94 L 12/27/20 05:30 72 16 96 12/27/20 05:00 71 19 118/54 98 12/27/20 04:30 70 23 98 12/27/20 04:00 71 23 114/54 98 12/27/20 03:30 68 19 114/54 98 12/27/20 03:00 69 20 120/64 99 12/27/20 02:30 67 18 98 12/27/20 02:00 67 14 124/57 98 12/27/20 01:30 67 14 97 12/27/20 01:00 71 20 117/72 97 12/27/20 00:30 69 23 98 12/27/20 00:12 97 12/27/20 00:03 71 16 98 12/27/20 00:00 71 14 124/71 98 12/26/20 23:30 72 17 98 12/26/20 23:00 74 23 121/58 97 12/26/20 22:30 70 16 99 12/26/20 22:00 72 15 121/58 100 12/26/20 21:30 72 14 99 12/26/20 21:00 67 14 102/50 97 12/26/20 20:30 65 15 97 12/26/20 20:02 64 12/26/20 20:00 98.4 F 64 20 98/46 98 12/26/20 19:30 62 100/47 99 12/26/20 19:00 66 22 110/52 99 12/26/20 18:45 65 10 L 110/54 100 12/26/20 18:30 66 18 111/54 100 12/26/20 18:15 67 21 110/53 100 12/26/20 18:00 98.1 F 68 21 113/56 100 12/26/20 17:45 75 6 L 121/57 99 12/26/20 17:30 72 21 112/53 99 12/26/20 17:15 71 20 126/58 99 12/26/20 17:00 75 21 112/51 98 12/26/20 16:45 77 21 150/67 99 12/26/20 16:30 90 24 143/62 98 12/26/20 16:15 89 24 124/76 12/26/20 16:00 98.1 F 74 21 115/57 96 12/26/20 15:45 76 22 117/56 95 12/26/20 15:30 69 20 122/59 97 12/26/20 15:15 68 20 126/63 97 12/26/20 15:00 66 20 122/67 99 12/26/20 14:45 65 15 127/68 99 12/26/20 14:30 63 13 127/67 99 12/26/20 14:15 64 13 133/77 100 12/26/20 14:00 59 L 12 135/77 100 12/26/20 13:45 60 12 100 12/26/20 13:30 95.9 F L 59 L 12 100 12/26/20 13:25 62 10 L Intake and Output 12/26/20 12/27/20 12/27/20 22:59 06:59 14:59 Intake Total 784.946 8513.450 Output Total 890 615 Balance -78.768 418.450 Intake: IV 740 931 ACETAMINOPHEN IV (For NPO 100 100 ) 1,000 mg In Empty Bag 1 bag @ 400 mls/hr IVPB Q6HR KO[facility] Rx#:[id number] Albumin Human 5% 250 ml 250 In Empty Bag 1 bag @ 250 mls/hr IVPB Q1HR PRN Rx#: [id number] CO/CI 190 50 Lactated Ringers 1,000 ml 400 450 @ 50 mls/hr IV .Q20H KOBI Rx#:[id number] ceFAZolin 2 gm In Sodium 50 Chloride 0.9% 50 ml @ 100 mls/hr IVPB Q8HR [facility] Rx# :[id number] pressure bags 81 Intake, IV Titration 71.232 2.450 Amount Clevidipine Butyrate 25 37.400 mg In Empty Bag 1 bag @ 1 MG/HR 2 mls/hr IV .Q24H [facility] Rx#:[id number] Dexmedetomidine/0.9% NaCl 22.728 (Pmx) 400 mcg In Empty Bag 1 bag @ Titrate IV . Q0M [facility] Rx#:[id number] Insulin Regular 100 unit 9.376 2.450 In Sodium Chloride 0.9% 100 ml @ Per Protocol IV .Q0M KOBI Rx#:[id number] propofoL 1,000 mg In 1.728 Empty Bag 1 bag @ Titrate IV .Q0M KOBI Rx#: [id number] Oral 100 Output: Chest Tube Drainage 190 370 Right Pleural/Mediastinal 190 370 Urine 700 245 Other: Voiding Method Indwelling Catheter Indwelling Catheter Weight 66.6 kg ABP, PAP, CO, CI - Last 8 Hours Arterial Blood Pressure 114/36 Arterial Blood Pressure 129/36 Arterial Blood Pressure 117/38 Arterial Blood Pressure 142/50 Arterial Blood Pressure 147/49 Arterial Blood Pressure 144/44 Arterial Blood Pressure 140/45 Arterial Blood Pressure 149/47 Pulmonary Artery Pressure 15/3 Pulmonary Artery Pressure 16/4 Pulmonary Artery Pressure 13/5 Pulmonary Artery Pressure 23/14 Pulmonary Artery Pressure 22/11 Pulmonary Artery Pressure 22/12 Pulmonary Artery Pressure 23/13 Pulmonary Artery Pressure 21/9 Pulmonary Artery Pressure 20/11 Cardiac Output 3.2 Cardiac Output 4.1 Cardiac Index 2 Cardiac Index 3.7 Results 12/27/20 04:00 12/27/20 04:00 Cardiac Enzymes 12/26/20 12/27/20 Range/Units 13:30 04:00 AST 38 H 67 H (14-36) U/L Coagulation 12/26/20 Range/Units 13:30 PT 13.1 H (9.0-12.0) sec APTT 32.4 H (22.0-30.0) sec CBC 12/26/20 12/26/20 12/26/20 Range/Units 13:30 15:55 18:06 WBC 13.3 H 12.4 H 10.6 (3.8-10.6) k/uL RBC 2.43 L 2.67 L 2.53 L (3.80-5.40) m/uL Hgb 7.4 L D 8.0 L 7.7 L (11.4-16.0) gm/dL Hct 22.2 L 24.1 L 22.8 L (34.0-46.0) % Plt Count 117 L 147 L 158 (150-450) k/uL 12/27/20 Range/Units 04:00 WBC 15.2 H (3.8-10.6) k/uL RBC 2.55 L (3.80-5.40) m/uL Hgb 8.0 L (11.4-16.0) gm/dL Hct 23.2 L (34.0-46.0) % Plt Count 168 (150-450) k/uL Comprehensive Metabolic Panel 12/26/20 12/27/20 Range/Units 13:30 04:00 Sodium 140 137 (137-145) mmol/L Potassium 4.2 4.8 (3.5-5.1) mmol/L Chloride 109 H 107 (98-107) mmol/L Carbon Dioxide 26 22 (22-30) mmol/L BUN 14 19 H (7-17) mg/dL Creatinine 0.54 0.78 (0.52-1.04) mg/dL Glucose 71 L 123 H (74-99) mg/dL Calcium 8.7 8.3 L (8.4-10.2) mg/dL AST 38 H 67 H (14-36) U/L ALT 14 18 (4-34) U/L Alkaline Phosphatase 29 L 41 (38-126) U/L Total Protein 4.5 L 4.8 L (6.3-8.2) g/dL Albumin 2.8 L 3.1 L (3.5-5.0) g/dL Current Medications Generic Name Dose Route Start Last Admin Trade Name Freq PRN Reason Stop Dose Admin Hydrocodone Bitart/Acetaminophen 1 each 12/27/20 00:19 Hydrocodone/Apap 5-325mg 1 Each Tab PO Q4HR PRN Moderate Pain Hydrocodone Bitart/Acetaminophen 2 each 12/27/20 00:20 12/27/20 06:26 Hydrocodone/Apap 5-325mg 1 Each Tab PO 2 each Q4HR PRN Administration Severe Pain Albuterol/Ipratropium 3 ml 12/26/20 13:03 Ipratropium-Albuterol 3 Ml Neb INHALATION RT-Q2H PRN Shortness Of Breath Or Wheezing Albuterol/Ipratropium 3 ml 12/27/20 08:00 12/27/20 10:16 Ipratropium-Albuterol 3 Ml Neb INHALATION 3 ml RT-QID KOBI Administration Aspirin 325 mg 12/27/20 09:00 12/27/20 08:14 Aspirin 325 Mg Tab PO 325 mg DAILY KOBI Administration Atorvastatin Calcium 40 mg 12/26/20 21:00 12/26/20 20:13 Atorvastatin 40 Mg Tab PO 40 mg HS KOBI Administration Benzocaine 1 spray 12/26/20 16:39 Benzocaine [place] 1 Can MUCOUS MEM QID PRN Mouth Irritation Benzocaine/Menthol 1 each 12/26/20 13:03 Benzocaine/Menthol Lozeng 1 Each Lozenge MUCOUS MEM Q2H PRN Sore Throat Bisacodyl 10 mg 12/27/20 09:00 Bisacodyl 10 Mg Supp RECTAL DAILY PRN Constipation Clopidogrel Bisulfate 75 mg 12/27/20 09:00 12/27/20 08:14 Clopidogrel 75 Mg Tab PO 75 mg DAILY KOBI Administration Heparin Sodium (Porcine) 5,000 unit 12/26/20 20:00 12/27/20 03:58 Heparin Sodium,Porcine 5,000 Unit/Ml 1 Ml Vial SQ 5,000 unit Q8H KOBI Administration Hydralazine HCl 10 mg 12/26/20 13:03 Hydralazine Hcl 20 Mg/Ml 1 Ml Vial IVP Q1H PRN Blood Pressure - High Amiodarone HCl 150 mg/ 103 mls @ 618 mls/hr 12/26/20 13:03 Dextrose/Water IV .Q10M PRN A.FIB/FLUTTER Protocol Amiodarone HCl 360 mg/ 207.2 mls @ 34.533 mls/hr 12/26/20 13:03 Dextrose/Water IV .Q6H PRN A.FIB/FLUTTER Protocol 1 MG/MIN Amiodarone HCl 450 mg/ 250 mls @ 16.667 mls/hr 12/26/20 13:03 Dextrose/Water IV .Q15H PRN A.FIB/FLUTTER Protocol 0.5 MG/MIN Albumin Human 250 ml/ IV 250 mls @ 250 mls/hr 12/26/20 13:03 12/27/20 07:59 Solution IVPB 12/28/20 13:04 250 mls/hr Q1HR PRN Administration For Volume Lactated Ringer's 1,000 mls @ 20 mls/hr 12/26/20 13:03 12/27/20 08:17 Lactated Ringers IV 20 mls/hr .Q24H KOBI Administration Dexmedetomidine HCl 400 mcg/ 100 mls @ 0 mls/hr 12/26/20 14:30 12/26/20 19:42 IV Solution IV 12/27/20 14:31 0.2 mcg/kg/hr .Q0M KOBI 2.88 mls/hr Titration Protocol Titrate Calcium Gluconate 2 gm/ Sodium 120 mls @ 100 mls/hr 12/26/20 13:03 Chloride IVPB 12/27/20 23:00 ONCE PRN Ionized Calcium less than 4.4 Insulin Human Regular 100 unit 101 mls @ 0 mls/hr 12/26/20 14:30 12/27/20 06:05 / Sodium Chloride IV 0 units/hr .Q0M KOBI 0 mls/hr Titration Protocol Per Protocol Ketorolac Tromethamine 15 mg 12/26/20 18:00 12/27/20 05:20 Ketorolac 15 Mg/Ml 1 Ml Vial IVP 12/29/20 16:36 15 mg Q6HR KOBI Administration Levothyroxine Sodium 25 mcg 12/26/20 21:00 12/26/20 20:13 Levothyroxine 25 Mcg Tab PO 25 mcg HS KOBI Administration Magnesium Hydroxide 2,400 mg 12/27/20 09:00 Magnesium Hydroxide 2,400 Mg/10 Ml Cup PO BID PRN Constipation Metoclopramide HCl 10 mg 12/26/20 13:03 12/27/20 03:58 Metoclopramide 5 Mg/Ml 2 Ml Vial IVP 10 mg Q4H PRN Administration Nausea And Vomiting Metoprolol Tartrate 12.5 mg 12/27/20 09:00 12/27/20 08:14 Metoprolol Tartrate 12.5 Mg Tab PO 12.5 mg BID KOBI Administration Miscellaneous Information 1 each 12/26/20 13:03 Potassium Replacement Protocol 1 Each Misc MISCELLANE DAILY PRN Per Protocol Protocol Miscellaneous Information 1 each 12/26/20 13:03 Magnesium Replacement Protocol 1 Each Misc MISCELLANE DAILY PRN Per Protocol Protocol Miscellaneous Information 1 each 12/26/20 13:03 Phosphorus Replacement Protoco 1 Each Mis MISCELLANE DAILY PRN Per Protocol Protocol Ondansetron HCl 4 mg 12/26/20 13:03 12/27/20 02:56 Ondansetron 4 Mg/2 Ml Vial IVP 4 mg Q6HR PRN Administration Nausea And Vomiting Pantoprazole Sodium 40 mg 12/27/20 08:30 12/27/20 08:14 Pantoprazole 40 Mg Tablet PO Not Given AC-[id number] KOBI Senna/Docusate Sodium 2 each 12/27/20 21:00 Sennosides-Docusate Sodium 1 Each Tab PO HS KOBI Sertraline HCl 25 mg 12/26/20 21:00 12/26/20 21:20 Sertraline 25 Mg Tab PO 25 mg HS KOBI Administration Sodium Chloride 10 ml 12/26/20 21:00 12/27/20 08:14 Sodium Chloride 0.9% Flush 10 Ml Syringe IV 10 ml BID KOBI Administration Intake and Output 12/26/20 12/27/20 12/27/20 22:59 06:59 14:59 Intake Total 374.687 1700.450 Output Total 890 615 Balance -78.768 418.450 Intake: IV 740 931 ACETAMINOPHEN IV (For NPO 100 100 ) 1,000 mg In Empty Bag 1 bag @ 400 mls/hr IVPB Q6HR [facility] Rx#:[id number] Albumin Human 5% 250 ml 250 In Empty Bag 1 bag @ 250 mls/hr IVPB Q1HR PRN Rx#: [id number] CO/CI 190 50 Lactated Ringers 1,000 ml 400 450 @ 50 mls/hr IV .Q20H [facility] Rx#:[id number] ceFAZolin 2 gm In Sodium 50 Chloride 0.9% 50 ml @ 100 mls/hr IVPB Q8HR [facility] Rx# :[id number] pressure bags 81 Intake, IV Titration 71.232 2.450 Amount Clevidipine Butyrate 25 37.400 mg In Empty Bag 1 bag @ 1 MG/HR 2 mls/hr IV .Q24H [facility] Rx#:[id number] Dexmedetomidine/0.9% NaCl 22.728 (Pmx) 400 mcg In Empty Bag 1 bag @ Titrate IV . Q0M [facility] Rx#:[id number] Insulin Regular 100 unit 9.376 2.450 In Sodium Chloride 0.9% 100 ml @ Per Protocol IV .Q0M [facility] Rx#:[id number] propofoL 1,000 mg In 1.728 Empty Bag 1 bag @ Titrate IV .Q0M [facility] Rx#: [id number] Oral 100 Output: Chest Tube Drainage 190 370 Right Pleural/Mediastinal 190 370 Urine 700 245 Other: Voiding Method Indwelling Catheter Indwelling Catheter Weight 66.6 kg 12/27/20 04:00 12/27/20 04:00
--- NOTE | 2020-12-27 11:09 | P.CONS ---
History of Present Illness - Reason for Consult Consult date: 12/27/20 Medical management - History of Present Illness HISTORY OF PRESENT ILLNESS This is a 65-year-old female patient of Dr. 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 Patient underwent echocar diogram that revealed an ejection fraction of 55-60% with LVH, mild to moderate MR, bicuspid severely calcified aortic valve with moderate aortic regurgitation, moderate tricuspid regurgitation. The patient underwent cardiac catheterizationTEE for further evaluation. The cath showed right coronary artery stenosis in the order of 85% without any significant coronary artery disease. The transthoracic echocardiogram showed severe aortic stenosis. Patient underwent aortic valve replacement and one-vessel CABG with reverse saphenous vein graft off the aorta to the right coronary artery. Patient was admitted into the intensive care unit and was successfully extubated. She is seen today in the intensive care unit. She is up in a recliner. [place]-Kelli in place, mediastinal and right-sided chest tubes in place, Acevedo catheter in place. Patient denies having any chest pain. She states she is not feeling too bad today. She has a little nausea. No abdominal pain. She states she slept okay last night. She has been afebrile, heart rate 71, blood pressure 119/52, pulse ox 90% on 5 L nasal cannula. Blood work this morning reveals W BC 15.2, hemoglobin 8, platelet count 168. Electrolytes normal, BUN 19 and creatinine 0.78. Blood sugars running between 124 and 141. AST 167. Chest x-ray reveals small residual right apical pneumothorax may be present. Chest tubes pulled back slightly from comparison. [place] catheter is somewhat peripheral and the right main pulmonary artery region. Cardiomegaly. Small left pleural effusion. REVIEW OF SYSTEMS Constitutional: No fever, no chills, no night sweats. No weight change. No weakness, fatigue or lethargy. No daytime sleepiness. EENT: No headache. No change in vision, no loss of vision. No loss of Hearing, no dizziness. No nasal drainage or congestion. No epistaxis. No sore throat. Lungs: No shortness of breath, cough, no sputum production. No wheezing. Cardiovascular: No chest pain, no lower extremity edema. No palpitations. No paroxysmal nocturnal dyspnea. No orthopnea. No lightheadedness or dizziness. No syncopal episodes. Abdominal: No abdominal pain. Reports nausea, vomiting. No diarrhea. No constipation. No bloody or tarry stools.. No loss of appetite. Genitourinary: No dysuria, increased frequency, urgency. No urinary retention. Musculoskeletal: No myalgias. No muscle weakness, no gait dysfunction, no frequent falls. No back pain. No neck pain. Integumentary: No wounds, no lesions. No rash or pruritus. Neurologic: No aphasia. No facial droop. No change in mentation. No head injury. No headache. No paralysis. No paresthesia. Psychiatric: No depression. No anxiety. Endocrine: No abnormal blood sugars. SOCIAL HISTORY Patient has a remote history of smoking for 5 years. She has had secondhand smoke exposure her entire life. She denies any alcohol use or illicit drug use. FAMILY HISTORY Mother has history of cervical cancer. Father has history of colon cancer. Sr. had history of breast cancer. Patient's 1 brother that at age 71 from a myocardial infraction. She has one son that his had PFO repair. PHYSICAL EXAMINATION Gen: This paradise 65-year-old female. She is resting in a recliner and appears to be comfortable and in no acute distress. HEENT: Head is atraumatic, normocephalic. Pupils equal, round. Sclerae is anicteric. NECK: Supple. No JVD. No lymphadenopathy. No thyromegaly. Right-sided swans Kelli in place. LUNGS: Clear to auscultation. No wheezes or rhonchi. No intercostal retractions. Right pleural and mediastinal chest tubes in place. HEART: Regular rate and rhythm. No murmur. ABDOMEN: Soft. Bowel sounds are present. No masses. No tenderness. Acevedo catheter in place. EXTREMITIES: No pedal edema. No calf tenderness. NEUROLOGICAL: Patient is awake, alert and oriented x3. Cranial nerves 2 through 12 are grossly intact. ASSESSMENT AND PLAN 1. Aortic valve replacement for bicuspid valve with moderate aortic regurgitation and single-vessel CABG with CVG to RCA. Patient is postop day #1. She has been successfully extubated. Patient is not requiring vasopressors. Continue current management per cardiothoracic surgery. Patient is currently on aspirin 325 mg daily, Lipitor 40 mg daily, Plavix 75 mg daily, Lopressor 12.5 mg twice daily. 2. Hypertension. 3. Hyperlipidemia. Continue Lipitor 40 mg daily. 4. History of CVA 2. Continue Lipitor for secondary prevention. 5. Hypothyroidism. Continue levothyroxine 25 g daily. 6. Recurrent depression. Continue Zoloft 25 mg at bedtime. 7. Degenerative disc disease. Patient is on baclofen. 8. GI prophylaxis. Protonix. 9. DVT prophylaxis. Heparin subcu. DISCHARGE PLAN Most likely home with homecare. Impression and plan of care have been directed as dictated by the signing physician. Donna Gutierrez nurse practitioner acting as scribe for signing physician. Past Medical History Past Medical History: CVA/TIA, Hyperlipidemia, Hypertension, Musculoskeletal Disorder, Thyroid Disorder Additional Past Medical History / Comment(s): Calcified aortic valve/bicuspid valve with a valve area of 0.5 cm, single-vessel coronary artery disease, history of CVA with right-sided blindness, hypertension, hyperlipidemia, back & right hip pain, hypothyroidism History of Any Multi-Drug Resistant Organisms: None Reported Past Surgical History: Section, Heart Catheterization Additional Past Surgical History / Comment(s): anibal feet,rt hand,c sect x2,breast bx Past Anesthesia/Blood Transfusion Reactions: No Reported Reaction Additional Past Anesthesia/Blood Transfusion Reaction / Comm: no hx blood transfusion Smoking Status: Former smoker - Past Family History Mother Family Medical History: Cancer Additional Family Medical History / Comment(s): cervical Sister(s) Family Medical History: Cancer Additional Family Medical History / Comment(s): breast Father Family Medical History: Cancer Additional Family Medical History / Comment(s): colon Medications and Allergies Home Medications Medication Instructions Recorded Confirmed Type Aspirin EC [Ecotrin Low Dose] 81 mg PO HS 12/12/20 12/26/20 History Atorvastatin [Lipitor] 40 mg PO HS 12/13/20 12/26/20 History Baclofen 10 mg PO HS 12/13/20 12/26/20 History HYDROcodone/APAP 5-325MG [[place] 1 tab PO BID PRN 12/13/20 12/26/20 History 5-325] Ibuprofen [Motrin] 800 mg PO BID PRN 12/13/20 12/26/20 History Levothyroxine Sodium [Synthroid] 25 mcg PO HS 12/13/20 12/26/20 History Metoprolol Tartrate [Lopressor] 12.5 mg PO BID 12/13/20 12/26/20 History Sertraline [Zoloft] 25 mg PO HS 12/13/20 12/26/20 History amLODIPine [Norvasc] 5 mg PO HS 12/13/20 12/26/20 History Allergies Allergy/AdvReac Type Severity Reaction Status Date / Time No Known Allergies Allergy Verified 12/26/20 06:04 Physical Exam Vitals: Vital Signs Temp Pulse Resp BP Pulse Ox 12/27/20 07:00 71 27 H 106/47 95 12/27/20 06:30 69 23 106/47 92 L 12/27/20 06:00 70 24 128/54 94 L 12/27/20 05:30 72 16 96 12/27/20 05:00 71 19 118/54 98 12/27/20 04:30 70 23 98 12/27/20 04:00 71 23 114/54 98 12/27/20 03:30 68 19 114/54 98 12/27/20 03:00 69 20 120/64 99 12/27/20 02:30 67 18 98 12/27/20 02:00 67 14 124/57 98 12/27/20 01:30 67 14 97 12/27/20 01:00 71 20 117/72 97 12/27/20 00:30 69 23 98 12/27/20 00:12 97 12/27/20 00:03 71 16 98 12/27/20 00:00 71 14 124/71 98 12/26/20 23:30 72 17 98 12/26/20 23:00 74 23 121/58 97 12/26/20 22:30 70 16 99 12/26/20 22:00 72 15 121/58 100 12/26/20 21:30 72 14 99 12/26/20 21:00 67 14 102/50 97 12/26/20 20:30 65 15 97 12/26/20 20:02 64 12/26/20 20:00 98.4 F 64 20 98/46 98 12/26/20 19:30 62 100/47 99 12/26/20 19:00 66 22 110/52 99 12/26/20 18:45 65 10 L 110/54 100 12/26/20 18:30 66 18 111/54 100 03/23/21 18:15 67 21 110/53 100 12/26/20 18:00 98.1 F 68 21 113/56 100 12/26/20 17:45 75 6 L 121/57 99 12/26/20 17:30 72 21 112/53 99 12/26/20 17:15 71 20 126/58 99 12/26/20 17:00 75 21 112/51 98 12/26/20 16:45 77 21 150/67 99 12/26/20 16:30 90 24 143/62 98 12/26/20 16:15 89 24 124/76 12/26/20 16:00 98.1 F 74 21 115/57 96 12/26/20 15:45 76 22 117/56 95 12/26/20 15:30 69 20 122/59 97 12/26/20 15:15 68 20 126/63 97 12/26/20 15:00 66 20 122/67 99 12/26/20 14:45 65 15 127/68 99 12/26/20 14:30 63 13 127/67 99 12/26/20 14:15 64 13 133/77 100 12/26/20 14:00 59 L 12 135/77 100 12/26/20 13:45 60 12 100 12/26/20 13:30 95.9 F L 59 L 12 100 12/26/20 13:25 62 10 L Intake and Output 12/26/20 12/27/20 12/27/20 22:59 06:59 14:59 Intake Total 858.755 2528.450 Output Total 890 615 Balance -78.768 418.450 Intake: IV 740 931 ACETAMINOPHEN IV (For NPO 100 100 ) 1,000 mg In Empty Bag 1 bag @ 400 mls/hr IVPB Q6HR [facility] Rx#:[id number] Albumin Human 5% 250 ml 250 In Empty Bag 1 bag @ 250 mls/hr IVPB Q1HR PRN Rx#: [id number] CO/CI 190 50 Lactated Ringers 1,000 ml 400 450 @ 50 mls/hr IV .Q20H [facility] Rx#:[id number] ceFAZolin 2 gm In Sodium 50 Chloride 0.9% 50 ml @ 100 mls/hr IVPB Q8HR [facility] Rx# :[id number] pressure bags 81 Intake, IV Titration 71.232 2.450 Amount Clevidipine Butyrate 25 37.400 mg In Empty Bag 1 bag @ 1 MG/HR 2 mls/hr IV .Q24H [facility] Rx#:[id number] Dexmedetomidine/0.9% NaCl 22.728 (Pmx) 400 mcg In Empty Bag 1 bag @ Titrate IV . Q0M [facility] Rx#:[id number] Insulin Regular 100 unit 9.376 2.450 In Sodium Chloride 0.9% 100 ml @ Per Protocol IV .Q0M [facility] Rx#:[id number] propofoL 1,000 mg In 1.728 Empty Bag 1 bag @ Titrate IV .Q0M [facility] Rx#: [id number] Oral 100 Output: Chest Tube Drainage 190 370 Right Pleural/Mediastinal 190 370 Urine 700 245 Other: Voiding Method Indwelling Catheter Indwelling Catheter Weight 66.6 kg ABP, PAP, CO, CI - Last 8 Hours Arterial Blood Pressure 114/36 Arterial Blood Pressure 129/36 Arterial Blood Pressure 117/38 Arterial Blood Pressure 142/50 Arterial Blood Pressure 147/49 Arterial Blood Pressure 144/44 Arterial Blood Pressure 140/45 Arterial Blood Pressure 149/47 Arterial Blood Pressure 142/44 Pulmonary Artery Pressure 15/3 Pulmonary Artery Pressure 16/4 Pulmonary Artery Pressure 13/5 Pulmonary Artery Pressure 23/14 Pulmonary Artery Pressure 22/11 Pulmonary Artery Pressure 22/12 Pulmonary Artery Pressure 23/13 Pulmonary Artery Pressure 21/9 Pulmonary Artery Pressure 20/11 Pulmonary Artery Pressure 17/6 Cardiac Output 3.2 Cardiac Output 4.1 Cardiac Index 2 Cardiac Index 3.7 Results CBC & Chem 7: 12/27/20 04:00 12/27/20 04:00 Labs: Abnormal Lab Results - Last 24 Hours (Table) 12/15/20 12/26/20 12/26/20 Range/Units 14:32 08:25 09:13 WBC (3.8-10.6) k/uL RBC (3.80-5.40) m/uL Hgb (11.4-16.0) gm/dL Hct (34.0-46.0) % RDW (11.5-15.5) % Plt Count (150-450) k/uL Neutrophils # (1.3-7.7) k/uL Lymphocytes # (1.0-4.8) k/uL Monocytes # (0-1.0) k/uL PT (9.0-12.0) sec INR (<1.2) APTT (22.0-30.0) sec Fibrinogen (200-500) mg/dL ABG pH 7.46 H 7.33 L (7.35-7.45) ABG pCO2 46 H (35-45) mmHg ABG pO2 263 H 261 H (83-108) mmHg ABG HCO3 (21-25) mmol/L ABG Total CO2 26 H 26 H (19-24) mmol/L ABG O2 Saturation 100.0 H 99.8 H (94-97) % ABG Hematocrit 32 L 30 L (34.0-46.0) % ABG Potassium (3.4-4.5) mmol/L ABG Ionized Calcium (4.5-5.3) mg/dL ABG Glucose 132 H 176 H (75-99) mg/dL Hemoglobin 10.3 L 9.7 L (11.4-16.0) gm/dL Chloride (98-107) mmol/L BUN (7-17) mg/dL Glucose (74-99) mg/dL POC Glucose (mg/dL) (75-99) mg/dL Calcium (8.4-10.2) mg/dL Magnesium (1.6-2.3) mg/dL AST (14-36) U/L Alkaline Phosphatase (38-126) U/L Total Protein (6.3-8.2) g/dL Albumin (3.5-5.0) g/dL Arterial Blood Potassium (3.4-4.5) mmol/L Arterial Blood Glucose 132 H 176 H (75-99) mg/dL Crossmatch See Detail 12/26/20 12/26/20 12/26/20 Range/Units 09:28 09:58 10:07 WBC (3.8-10.6) k/uL RBC (3.80-5.40) m/uL Hgb (11.4-16.0) gm/dL Hct (34.0-46.0) % RDW (11.5-15.5) % Plt Count (150-450) k/uL Neutrophils # (1.3-7.7) k/uL Lymphocytes # (1.0-4.8) k/uL Monocytes # (0-1.0) k/uL PT (9.0-12.0) sec INR (<1.2) APTT (22.0-30.0) sec Fibrinogen (200-500) mg/dL ABG pH 7.31 L (7.35-7.45) ABG pCO2 (35-45) mmHg ABG pO2 >420 H 372 H >420 H (83-108) mmHg ABG HCO3 (21-25) mmol/L ABG Total CO2 25 H 25 H (19-24) mmol/L ABG O2 Saturation 100.0 H 100.0 H 100.0 H (94-97) % ABG Hematocrit 22 L 19 L* 20 L* (34.0-46.0) % ABG Potassium 4.7 H (3.4-4.5) mmol/L ABG Ionized Calcium 4.0 L 4.3 L 4.4 L (4.5-5.3) mg/dL ABG Glucose 187 H 204 H 149 H (75-99) mg/dL Hemoglobin 7.2 L 6.2 L* 6.4 L* (11.4-16.0) gm/dL Chloride (98-107) mmol/L BUN (7-17) mg/dL Glucose (74-99) mg/dL POC Glucose (mg/dL) (75-99) mg/dL Calcium (8.4-10.2) mg/dL Magnesium (1.6-2.3) mg/dL AST (14-36) U/L Alkaline Phosphatase (38-126) U/L Total Protein (6.3-8.2) g/dL Albumin (3.5-5.0) g/dL Arterial Blood Potassium 4.7 H (3.4-4.5) mmol/L Arterial Blood Glucose 187 H 204 H 149 H (75-99) mg/dL Crossmatch 12/26/20 12/26/20 12/26/20 Range/Units 13:30 13:30 13:30 WBC 13.3 H (3.8-10.6) k/uL RBC 2.43 L (3.80-5.40) m/uL Hgb 7.4 L D (11.4-16.0) gm/dL Hct 22.2 L (34.0-46.0) % RDW 16.7 H (11.5-15.5) % Plt Count 117 L (150-450) k/uL Neutrophils # 11.5 H (1.3-7.7) k/uL Lymphocytes # 0.6 L (1.0-4.8) k/uL Monocytes # 1.2 H (0-1.0) k/uL PT 13.1 H (9.0-12.0) sec INR 1.3 H (<1.2) APTT 32.4 H (22.0-30.0) sec Fibrinogen (200-500) mg/dL ABG pH (7.35-7.45) ABG pCO2 (35-45) mmHg ABG pO2 (83-108) mmHg ABG HCO3 (21-25) mmol/L ABG Total CO2 (19-24) mmol/L ABG O2 Saturation (94-97) % ABG Hematocrit (34.0-46.0) % ABG Potassium (3.4-4.5) mmol/L ABG Ionized Calcium (4.5-5.3) mg/dL ABG Glucose (75-99) mg/dL Hemoglobin (11.4-16.0) gm/dL Chloride 109 H (98-107) mmol/L BUN (7-17) mg/dL Glucose 71 L (74-99) mg/dL POC Glucose (mg/dL) (75-99) mg/dL Calcium (8.4-10.2) mg/dL Magnesium 2.8 H (1.6-2.3) mg/dL AST 38 H (14-36) U/L Alkaline Phosphatase 29 L (38-126) U/L Total Protein 4.5 L (6.3-8.2) g/dL Albumin 2.8 L (3.5-5.0) g/dL Arterial Blood Potassium (3.4-4.5) mmol/L Arterial Blood Glucose (75-99) mg/dL Crossmatch 12/26/20 12/26/20 12/26/20 Range/Units 13:34 13:59 14:00 WBC (3.8-10.6) k/uL RBC (3.80-5.40) m/uL Hgb (11.4-16.0) gm/dL Hct (34.0-46.0) % RDW (11.5-15.5) % Plt Count (150-450) k/uL Neutrophils # (1.3-7.7) k/uL Lymphocytes # (1.0-4.8) k/uL Monocytes # (0-1.0) k/uL PT (9.0-12.0) sec INR (<1.2) APTT (22.0-30.0) sec Fibrinogen 144 L (200-500) mg/dL ABG pH 7.33 L (7.35-7.45) ABG pCO2 51 H (35-45) mmHg ABG pO2 317 H (83-108) mmHg ABG HCO3 27 H (21-25) mmol/L ABG Total CO2 28 H (19-24) mmol/L ABG O2 Saturation 100.0 H (94-97) % ABG Hematocrit (34.0-46.0) % ABG Potassium (3.4-4.5) mmol/L ABG Ionized Calcium (4.5-5.3) mg/dL ABG Glucose (75-99) mg/dL Hemoglobin (11.4-16.0) gm/dL Chloride (98-107) mmol/L BUN (7-17) mg/dL Glucose (74-99) mg/dL POC Glucose (mg/dL) 72 L (75-99) mg/dL Calcium (8.4-10.2) mg/dL Magnesium (1.6-2.3) mg/dL AST (14-36) U/L Alkaline Phosphatase (38-126) U/L Total Protein (6.3-8.2) g/dL Albumin (3.5-5.0) g/dL Arterial Blood Potassium (3.4-4.5) mmol/L Arterial Blood Glucose (75-99) mg/dL Crossmatch 12/26/20 12/26/20 12/26/20 Range/Units 15:02 15:53 15:55 WBC 12.4 H (3.8-10.6) k/uL RBC 2.67 L (3.80-5.40) m/uL Hgb 8.0 L (11.4-16.0) gm/dL Hct 24.1 L (34.0-46.0) % RDW 17.1 H (11.5-15.5) % Plt Count 147 L (150-450) k/uL Neutrophils # 10.3 H (1.3-7.7) k/uL Lymphocytes # 0.9 L (1.0-4.8) k/uL Monocytes # 1.2 H (0-1.0) k/uL PT (9.0-12.0) sec INR (<1.2) APTT (22.0-30.0) sec Fibrinogen (200-500) mg/dL ABG pH (7.35-7.45) ABG pCO2 (35-45) mmHg ABG pO2 (83-108) mmHg ABG HCO3 (21-25) mmol/L ABG Total CO2 (19-24) mmol/L ABG O2 Saturation (94-97) % ABG Hematocrit (34.0-46.0) % ABG Potassium (3.4-4.5) mmol/L ABG Ionized Calcium (4.5-5.3) mg/dL ABG Glucose (75-99) mg/dL Hemoglobin (11.4-16.0) gm/dL Chloride (98-107) mmol/L BUN (7-17) mg/dL Glucose (74-99) mg/dL POC Glucose (mg/dL) 116 H 168 H (75-99) mg/dL Calcium (8.4-10.2) mg/dL Magnesium (1.6-2.3) mg/dL AST (14-36) U/L Alkaline Phosphatase (38-126) U/L Total Protein (6.3-8.2) g/dL Albumin (3.5-5.0) g/dL Arterial Blood Potassium (3.4-4.5) mmol/L Arterial Blood Glucose (75-99) mg/dL Crossmatch 12/26/20 12/26/20 12/26/20 Range/Units 17:03 17:57 18:06 WBC (3.8-10.6) k/uL RBC 2.53 L (3.80-5.40) m/uL Hgb 7.7 L (11.4-16.0) gm/dL Hct 22.8 L (34.0-46.0) % RDW 17.1 H (11.5-15.5) % Plt Count (150-450) k/uL Neutrophils # 9.2 H (1.3-7.7) k/uL Lymphocytes # 0.5 L (1.0-4.8) k/uL Monocytes # (0-1.0) k/uL PT (9.0-12.0) sec INR (<1.2) APTT (22.0-30.0) sec Fibrinogen (200-500) mg/dL ABG pH (7.35-7.45) ABG pCO2 (35-45) mmHg ABG pO2 (83-108) mmHg ABG HCO3 (21-25) mmol/L ABG Total CO2 (19-24) mmol/L ABG O2 Saturation (94-97) % ABG Hematocrit (34.0-46.0) % ABG Potassium (3.4-4.5) mmol/L ABG Ionized Calcium (4.5-5.3) mg/dL ABG Glucose (75-99) mg/dL Hemoglobin (11.4-16.0) gm/dL Chloride (98-107) mmol/L BUN (7-17) mg/dL Glucose (74-99) mg/dL POC Glucose (mg/dL) 185 H 163 H (75-99) mg/dL Calcium (8.4-10.2) mg/dL Magnesium (1.6-2.3) mg/dL AST (14-36) U/L Alkaline Phosphatase (38-126) U/L Total Protein (6.3-8.2) g/dL Albumin (3.5-5.0) g/dL Arterial Blood Potassium (3.4-4.5) mmol/L Arterial Blood Glucose (75-99) mg/dL Crossmatch 12/26/20 12/26/20 12/26/20 Range/Units 19:04 19:54 20:46 WBC (3.8-10.6) k/uL RBC (3.80-5.40) m/uL Hgb (11.4-16.0) gm/dL Hct (34.0-46.0) % RDW (11.5-15.5) % Plt Count (150-450) k/uL Neutrophils # (1.3-7.7) k/uL Lymphocytes # (1.0-4.8) k/uL Monocytes # (0-1.0) k/uL PT (9.0-12.0) sec INR (<1.2) APTT (22.0-30.0) sec Fibrinogen (200-500) mg/dL ABG pH (7.35-7.45) ABG pCO2 (35-45) mmHg ABG pO2 (83-108) mmHg ABG HCO3 (21-25) mmol/L ABG Total CO2 (19-24) mmol/L ABG O2 Saturation (94-97) % ABG Hematocrit (34.0-46.0) % ABG Potassium (3.4-4.5) mmol/L ABG Ionized Calcium (4.5-5.3) mg/dL ABG Glucose (75-99) mg/dL Hemoglobin (11.4-16.0) gm/dL Chloride (98-107) mmol/L BUN (7-17) mg/dL Glucose (74-99) mg/dL POC Glucose (mg/dL) 136 H 114 H 106 H (75-99) mg/dL Calcium (8.4-10.2) mg/dL Magnesium (1.6-2.3) mg/dL AST (14-36) U/L Alkaline Phosphatase (38-126) U/L Total Protein (6.3-8.2) g/dL Albumin (3.5-5.0) g/dL Arterial Blood Potassium (3.4-4.5) mmol/L Arterial Blood Glucose (75-99) mg/dL Crossmatch 12/26/20 12/26/20 12/26/20 Range/Units 20:58 21:55 22:53 WBC (3.8-10.6) k/uL RBC (3.80-5.40) m/uL Hgb (11.4-16.0) gm/dL Hct (34.0-46.0) % RDW (11.5-15.5) % Plt Count (150-450) k/uL Neutrophils # (1.3-7.7) k/uL Lymphocytes # (1.0-4.8) k/uL Monocytes # (0-1.0) k/uL PT (9.0-12.0) sec INR (<1.2) APTT (22.0-30.0) sec Fibrinogen (200-500) mg/dL ABG pH (7.35-7.45) ABG pCO2 (35-45) mmHg ABG pO2 (83-108) mmHg ABG HCO3 (21-25) mmol/L ABG Total CO2 27 H (19-24) mmol/L ABG O2 Saturation 98.3 H (94-97) % ABG Hematocrit (34.0-46.0) % ABG Potassium (3.4-4.5) mmol/L ABG Ionized Calcium (4.5-5.3) mg/dL ABG Glucose (75-99) mg/dL Hemoglobin (11.4-16.0) gm/dL Chloride (98-107) mmol/L BUN (7-17) mg/dL Glucose (74-99) mg/dL POC Glucose (mg/dL) 127 H 122 H (75-99) mg/dL Calcium (8.4-10.2) mg/dL Magnesium (1.6-2.3) mg/dL AST (14-36) U/L Alkaline Phosphatase (38-126) U/L Total Protein (6.3-8.2) g/dL Albumin (3.5-5.0) g/dL Arterial Blood Potassium (3.4-4.5) mmol/L Arterial Blood Glucose (75-99) mg/dL Crossmatch 12/26/20 12/27/20 12/27/20 Range/Units 23:57 00:52 01:57 WBC (3.8-10.6) k/uL RBC (3.80-5.40) m/uL Hgb (11.4-16.0) gm/dL Hct (34.0-46.0) % RDW (11.5-15.5) % Plt Count (150-450) k/uL Neutrophils # (1.3-7.7) k/uL Lymphocytes # (1.0-4.8) k/uL Monocytes # (0-1.0) k/uL PT (9.0-12.0) sec INR (<1.2) APTT (22.0-30.0) sec Fibrinogen (200-500) mg/dL ABG pH (7.35-7.45) ABG pCO2 (35-45) mmHg ABG pO2 (83-108) mmHg ABG HCO3 (21-25) mmol/L ABG Total CO2 (19-24) mmol/L ABG O2 Saturation (94-97) % ABG Hematocrit (34.0-46.0) % ABG Potassium (3.4-4.5) mmol/L ABG Ionized Calcium (4.5-5.3) mg/dL ABG Glucose (75-99) mg/dL Hemoglobin (11.4-16.0) gm/dL Chloride (98-107) mmol/L BUN (7-17) mg/dL Glucose (74-99) mg/dL POC Glucose (mg/dL) 133 H 109 H 114 H (75-99) mg/dL Calcium (8.4-10.2) mg/dL Magnesium (1.6-2.3) mg/dL AST (14-36) U/L Alkaline Phosphatase (38-126) U/L Total Protein (6.3-8.2) g/dL Albumin (3.5-5.0) g/dL Arterial Blood Potassium (3.4-4.5) mmol/L Arterial Blood Glucose (75-99) mg/dL Crossmatch 12/27/20 12/27/20 12/27/20 Range/Units 02:51 04:00 04:00 WBC 15.2 H (3.8-10.6) k/uL RBC 2.55 L (3.80-5.40) m/uL Hgb 8.0 L (11.4-16.0) gm/dL Hct 23.2 L (34.0-46.0) % RDW 17.2 H (11.5-15.5) % Plt Count (150-450) k/uL Neutrophils # 12.5 H (1.3-7.7) k/uL Lymphocytes # (1.0-4.8) k/uL Monocytes # 1.3 H (0-1.0) k/uL PT (9.0-12.0) sec INR (<1.2) APTT (22.0-30.0) sec Fibrinogen (200-500) mg/dL ABG pH (7.35-7.45) ABG pCO2 (35-45) mmHg ABG pO2 (83-108) mmHg ABG HCO3 (21-25) mmol/L ABG Total CO2 (19-24) mmol/L ABG O2 Saturation (94-97) % ABG Hematocrit (34.0-46.0) % ABG Potassium (3.4-4.5) mmol/L ABG Ionized Calcium (4.5-5.3) mg/dL ABG Glucose (75-99) mg/dL Hemoglobin (11.4-16.0) gm/dL Chloride (98-107) mmol/L BUN 19 H (7-17) mg/dL Glucose 123 H (74-99) mg/dL POC Glucose (mg/dL) 127 H (75-99) mg/dL Calcium 8.3 L (8.4-10.2) mg/dL Magnesium (1.6-2.3) mg/dL AST 67 H (14-36) U/L Alkaline Phosphatase (38-126) U/L Total Protein 4.8 L (6.3-8.2) g/dL Albumin 3.1 L (3.5-5.0) g/dL Arterial Blood Potassium (3.4-4.5) mmol/L Arterial Blood Glucose (75-99) mg/dL Crossmatch 12/27/20 12/27/20 12/27/20 Range/Units 04:05 05:16 06:52 WBC (3.8-10.6) k/uL RBC (3.80-5.40) m/uL Hgb (11.4-16.0) gm/dL Hct (34.0-46.0) % RDW (11.5-15.5) % Plt Count (150-450) k/uL Neutrophils # (1.3-7.7) k/uL Lymphocytes # (1.0-4.8) k/uL Monocytes # (0-1.0) k/uL PT (9.0-12.0) sec INR (<1.2) APTT (22.0-30.0) sec Fibrinogen (200-500) mg/dL ABG pH (7.35-7.45) ABG pCO2 (35-45) mmHg ABG pO2 (83-108) mmHg ABG HCO3 (21-25) mmol/L ABG Total CO2 (19-24) mmol/L ABG O2 Saturation (94-97) % ABG Hematocrit (34.0-46.0) % ABG Potassium (3.4-4.5) mmol/L ABG Ionized Calcium (4.5-5.3) mg/dL ABG Glucose (75-99) mg/dL Hemoglobin (11.4-16.0) gm/dL Chloride (98-107) mmol/L BUN (7-17) mg/dL Glucose (74-99) mg/dL POC Glucose (mg/dL) 141 H 139 H 131 H (75-99) mg/dL Calcium (8.4-10.2) mg/dL Magnesium (1.6-2.3) mg/dL AST (14-36) U/L Alkaline Phosphatase (38-126) U/L Total Protein (6.3-8.2) g/dL Albumin (3.5-5.0) g/dL Arterial Blood Potassium (3.4-4.5) mmol/L Arterial Blood Glucose (75-99) mg/dL Crossmatch 12/27/20 12/27/20 Range/Units 08:04 09:02 WBC (3.8-10.6) k/uL RBC (3.80-5.40) m/uL Hgb (11.4-16.0) gm/dL Hct (34.0-46.0) % RDW (11.5-15.5) % Plt Count (150-450) k/uL Neutrophils # (1.3-7.7) k/uL Lymphocytes # (1.0-4.8) k/uL Monocytes # (0-1.0) k/uL PT (9.0-12.0) sec INR (<1.2) APTT (22.0-30.0) sec Fibrinogen (200-500) mg/dL ABG pH (7.35-7.45) ABG pCO2 (35-45) mmHg ABG pO2 (83-108) mmHg ABG HCO3 (21-25) mmol/L ABG Total CO2 (19-24) mmol/L ABG O2 Saturation (94-97) % ABG Hematocrit (34.0-46.0) % ABG Potassium (3.4-4.5) mmol/L ABG Ionized Calcium (4.5-5.3) mg/dL ABG Glucose (75-99) mg/dL Hemoglobin (11.4-16.0) gm/dL Chloride (98-107) mmol/L BUN (7-17) mg/dL Glucose (74-99) mg/dL POC Glucose (mg/dL) 126 H 124 H (75-99) mg/dL Calcium (8.4-10.2) mg/dL Magnesium (1.6-2.3) mg/dL AST (14-36) U/L Alkaline Phosphatase (38-126) U/L Total Protein (6.3-8.2) g/dL Albumin (3.5-5.0) g/dL Arterial Blood Potassium (3.4-4.5) mmol/L Arterial Blood Glucose (75-99) mg/dL Crossmatch
[2020-12-27 11:12] LABS: Glucose,Whole Blood 157 mg/dL (75-99)
[2020-12-27 11:52] LABS: Glucose,Whole Blood 159 mg/dL (75-99)
[2020-12-27 15:07] LABS: Glucose,Whole Blood 185 mg/dL (75-99)
[2020-12-27] MEDS ORDERED: FUROSEMIDE 10 MG/ML 2 ML VIAL IV ONE (15:51)
[2020-12-27 16:19] LABS: Glucose,Whole Blood 144 mg/dL (75-99)
[2020-12-27 18:06] LABS: Glucose,Whole Blood 147 mg/dL (75-99)
[2020-12-27 18:23] LABS: Anisocytosis Slight; HCT 21.9 % (34.0-46.0); HGB 7.5 gm/dL (11.4-16.0); Hypochromasia Slight; MCH 31.9 pg (25.0-35.0); MCHC 34.2 g/dL (31.0-37.0); MCV 93.3 fL (80.0-100.0); Mean Platelet Volume 8.5; Platelet Count 140 k/uL (150-450); RBC 2.34 m/uL (3.80-5.40); RDW 17.1 % (11.5-15.5); WBC 18.3 k/uL (3.8-10.6)
[2020-12-27 18:32] LABS: Albumin 3.7 g/dL (3.5-5.0); Calcium 8.1 mg/dL (8.4-10.2); Magnesium 2.4 mg/dL (1.6-2.3); Phosphorus 7.5 mg/dL (2.5-4.5); Potassium 5.3 mmol/L (3.5-5.1); Total Bilirubin 1.2 mg/dL (0.2-1.3); Total Protein 5.3 g/dL (6.3-8.2)
[2020-12-27 18:59] LABS: Glucose,Whole Blood 127 mg/dL (75-99)
[2020-12-27] MEDS ORDERED: CALCIUM GLUCONATE 1 GM in SODIUM CHLORIDE 0.9% 100 ML IVPB ONE (19:30)
[2020-12-27] MEDS: SENNOSIDES-DOCUSATE SODIUM 1 EACH TAB PO SCH (20:20)
[2020-12-27] MEDS: ATORVASTATIN 40 MG TAB PO SCH (20:20)
[2020-12-27] MEDS: LEVOTHYROXINE 25 MCG TAB PO SCH (20:21)
[2020-12-27] MEDS: SERTRALINE 25 MG TAB PO SCH (20:21)
[2020-12-27 20:41] LABS: Glucose,Whole Blood 138 mg/dL (75-99)
[2020-12-27 22:17] LABS: Glucose,Whole Blood 140 mg/dL (75-99)
[2020-12-27 22:17] LABS: Allen Test Performed? Yes
[2020-12-27 22:18] LABS: ABG Base Excess -12.1 mmol/L; ABG HCO3 15 mmol/L (21-25); ABG PCO2 36 mmHg (35-45); ABG PH 7.23 (7.35-7.45); ABG PO2 74 mmHg (83-108); ABG TCO2 16 mmol/L (19-24)
[2020-12-27 22:23] LABS: Anisocytosis Slight; Basophils % (A) 0 %; Eosinophils # (A) 0.3 k/uL (0-0.7); Eosinophils % (A) 2 %; HCT 22.3 % (34.0-46.0); HGB 7.4 gm/dL (11.4-16.0); Hypochromasia Slight; Lymphocytes # (A) 0.7 k/uL (1.0-4.8); Lymphocytes % (A) 5 %; MCH 30.9 pg (25.0-35.0); MCV 93.6 fL (80.0-100.0); Mean Platelet Volume 8.8; Monocytes # (A) 0.8 k/uL (0-1.0); Monocytes % (A) 5 %; Neutrophils # (A) 14.2 k/uL (1.3-7.7); Neutrophils % (A) 88 %; Platelet Count 141 k/uL (150-450); RBC 2.38 m/uL (3.80-5.40); RDW 17.1 % (11.5-15.5); WBC 16.2 k/uL (3.8-10.6)
[2020-12-27] MEDS ORDERED: SODIUM BICARB 8.4% 50 ML SYR (1 MEQ/ML) IV STA ×2 (22:29→22:30)
[2020-12-27 22:40] LABS: Ionized Calcium 4.6 mg/dL (4.5-5.3)
[2020-12-27 23:22] LABS: Potassium 5.5 mmol/L (3.5-5.1)
[2020-12-27 23:25] LABS: Albumin 3.8 g/dL (3.5-5.0); Calcium 8.3 mg/dL (8.4-10.2); Total Bilirubin 1.6 mg/dL (0.2-1.3); Total Protein 5.4 g/dL (6.3-8.2)
[2020-12-27] MEDS: DEXTROSE/WATER 1 250ML.BAG with DOPamine DRIP 800 MG IV SCH (23:46)
[2020-12-27 23:51] LABS: ABG Base Excess -8.2 mmol/L; ABG HCO3 18 mmol/L (21-25); ABG PCO2 35 mmHg (35-45); ABG PH 7.32 (7.35-7.45); ABG PO2 78 mmHg (83-108); ABG TCO2 19 mmol/L (19-24); Allen Test Performed? Yes
[2020-12-28] MEDS ORDERED: SODIUM BICARB 8.4% 50 ML SYR (1 MEQ/ML) IV STA ×2 (00:03→02:12)
[2020-12-28] MEDS: ALBUMIN HUMAN 5% 250 ML in EMPTY BAG 1 BAG IVPB PRN ×2 (00:13→14:54)
[2020-12-28 00:25] LABS: Glucose,Whole Blood 151 mg/dL (75-99)
[2020-12-28] MEDS: SODIUM BICARB 8.4% 50 ML SYR (1 MEQ/ML) IV STA (00:34)
[2020-12-28 00:59] LABS: Glucose,Whole Blood 146 mg/dL (75-99)
--- NOTE | 2020-12-28 01:41 | XR ---
EXAM: XR Chest, 1 View CLINICAL HISTORY: ITS.REASON XR Reason: Post Operative Cardiac Surgery TECHNIQUE: Frontal view of the chest. COMPARISON: December 27, 2020 FINDINGS: Lungs: Lung volumes are lower than previous with slight increase in mild left hilar and left basilar edema and/or atelectasis. There is a small pleural effusion. Pleural space: See above. Heart: Unremarkable. No cardiomegaly. Mediastinum: Unremarkable. Bones/joints: Multiple sternal wires status post sternotomy with aortic valvuloplasty and atrial appendage clipping. Tubes, lines and devices: The [place]-Kelli catheter has been removed. Mediastinal and right chest tubes remain in good position. IMPRESSION: 1. Multiple sternal wires status post sternotomy with aortic valvuloplasty and atrial appendage clipping. The cardiac silhouette is mildly enlarged. 2. Lung volumes are lower than previous with slight increase in mild left hilar and left basilar edema and/or atelectasis. There is a small pleural effusion.
[2020-12-28 01:51] LABS: Glucose,Whole Blood 144 mg/dL (75-99)
[2020-12-28 02:07] LABS: ABG Base Excess -5.9 mmol/L; ABG HCO3 20 mmol/L (21-25); ABG PCO2 37 mmHg (35-45); ABG PH 7.34 (7.35-7.45); ABG PO2 64 mmHg (83-108); ABG TCO2 21 mmol/L (19-24); Allen Test Performed? Yes
[2020-12-28] MEDS: MILRINONE-D5W PMX 20 MG in DEXTROSE/WATER 1 100ML.BAG IV SCH ×2 (03:03→21:23)
[2020-12-28 04:06] LABS: Allen Test Performed? Yes
[2020-12-28 04:07] LABS: Glucose,Whole Blood 154 mg/dL (75-99)
[2020-12-28 04:07] LABS: ABG Base Excess -3.1 mmol/L; ABG HCO3 22 mmol/L (21-25); ABG PCO2 40 mmHg (35-45); ABG PH 7.36 (7.35-7.45); ABG PO2 71 mmHg (83-108); ABG TCO2 24 mmol/L (19-24)
[2020-12-28 04:54] LABS: Anisocytosis Slight; Basophils % (A) 0 %; Eosinophils # (A) 0.1 k/uL (0-0.7); Eosinophils % (A) 1 %; HCT 20.1 % (34.0-46.0); Ionized Calcium 4.2 mg/dL (4.5-5.3); Lymphocytes # (A) 0.9 k/uL (1.0-4.8); Lymphocytes % (A) 6 %; MCH 31.1 pg (25.0-35.0); MCHC 33.9 g/dL (31.0-37.0); MCV 91.8 fL (80.0-100.0); Mean Platelet Volume 8.8; Monocytes # (A) 1.2 k/uL (0-1.0); Monocytes % (A) 7 %; Neutrophils # (A) 14.4 k/uL (1.3-7.7); Neutrophils % (A) 86 %; Platelet Count 136 k/uL (150-450); RBC 2.19 m/uL (3.80-5.40); RDW 17.3 % (11.5-15.5); WBC 16.8 k/uL (3.8-10.6)
[2020-12-28 04:58] LABS: HGB 6.8 gm/dL (11.4-16.0)
[2020-12-28 05:02] LABS: Glucose,Whole Blood 155 mg/dL (75-99)
[2020-12-28 05:09] LABS: Albumin 3.6 g/dL (3.5-5.0); Potassium 4.6 mmol/L (3.5-5.1); Total Bilirubin 1.9 mg/dL (0.2-1.3)
[2020-12-28] MEDS: HEPARIN SODIUM,PORCINE 5,000 UNIT/ML 1 ML VIAL SQ SCH ×3 (05:19→19:44)
[2020-12-28 06:08] LABS: Glucose,Whole Blood 157 mg/dL (75-99)
[2020-12-28] MEDS: PANTOPRAZOLE 40 MG TABLET PO SCH (06:13)
--- NOTE | 2020-12-28 06:36 | P.PN ---
Subjective Progress Note Date: 12/28/20 55-year-old female patient with known history of aortic valve stenosis along with hypertension and hyperlipidemia and hypothyroidism and previous history of CVA involving the right eye, was having some exertional dyspnea. The patient underwent a cardiac echo and the patient was found to have an ejection fraction of 55-60% along with LVH mild to moderate MR, bicuspid severely calcified aortic valve with a valve area of 0.6 cm and a gradient of 73 along with moderate aortic regurgitation, moderate tricuspid regurgitation and hypertension. The patient also underwent cardiac catheterization and FIDEL for further evaluation. The cath showed right coronary artery stenosis in the order of 85% without any significant coronary artery disease. The transthoracic echocardiogram showed severe aortic stenosis with a valve area of 0.5 cm. Based on that, the patient was taken to the operating room and the patient underwent a aVR and the patient also underwent a single-vessel bypass surgery with SVG to RCA. Currently the patient is in intensive care unit. She is sedated with propofol which is runni ng at 25 mcg/kg per minute. She is on a mechanical ventilator on assist control mode at the rate of 12 and tidal volume of 400 and FiO2 of 50% with a PEEP of 5. The rate will be increased to 29. The blood. Showed a pH of 7.33 with a pCO2 of 50 and pO2 of 317. FiO2 has been drop down to 50% already. The peak airway pressures 24. Hemodynamically, the patient is doing okay. She has a cardiac output of-0 and an index of 3.1. She is on no inotropes for now. She is on Catapres drip at 2 mg an hour with adequate blood pressure control. She has his [place]-Kelli catheter in the right IJ. She has chest tubes involving the right pleural, and mediastinal. Sternum stable clean and intact for now. The chest tubes are connected and the total amount of output has been around 100 mL bloody output since the patient came in from the operating room. No evidence of any air leak at this point in time. She is producing urine output around 50 mL an hour. She is cold and the body temperature has returned back to normal 12/27/2020 the patient is being seen for follow-up. The patient was extubated yesterday without any major issues and currently she is on oxygen at 5 L with a pulse ox of 88-90%. Hemodynamically, the patient is doing well. She is off cleviprex for now.. Her most recent cardiac index is 2.7. She is producing adequate amount of urine output. The chest x-ray from today shows some small effusion the left lung base. [place]-Kelli catheter good location. The patient has a right-sided pleural chest tube and a mediastinal chest tube and that is no evidence of any air leak and the chest x-ray is not showing any evidence of pneumothorax. Lungs are well expanded. There are some atelectatic changes in lung bases bilaterally. Pulmonary artery pressure is low at 20/10 and the patient is going to receive some more volume today. Output from the chest tube has been a total of 200 mL since arrival from the operating room. Note that both of the chest tubes are connected at this point in time. As mentioned, no evidence of any air leak and the patient is using incentive spirometer. Surgical wound site is dry clean and intact. 12/28/2020 the patient is being seen in follow-up. There is been significant change the patient's condition as of 7 PM yesterday. Note that the patient became progressively more hypotensive and oliguric and sacral patient went into a shock state. Consider the possibility of a cardiogenic shock. [place]-Kelli catheter is on the been taken out. Cardiac index earlier was in the order of 2.5 prior to catheter removal. In any rate, the patient became oliguric, hypotensive, became acidotic and the lactic acid level came up to 7.6. At that point, the patient was becoming more short of breath. She was placed on a BiPAP which is still running at a pressure of 12/5 with an FiO2 of 90%. There was a component of metabolic acidosis along with lactic acidosis with a pH of 7.32 and a pCO2 of 35 and pO2 of 78. The patient was given a total of 5 ampules of bicarb and the most recent blood test shows a pH of 7.36 with a pCO2 of 40 and p O2 of 71. At this point in time, the patient is lethargic, on a BiPAP, she is on a combination of dopamine running at 3 mg/kg per minute and Primacor running at 0.2 mcg/kg per minute. Most recent blood pressure is in the order of 140. Cardiac rhythm is sinus. Heart the mid 70s. Pulse is 94% while being on a BiPAP. The patient is going to a shock liver. AST is up to 1140 and ALT is up to 662 with a bilirubin of 1.9. Most recent lactic acid level is at 8.6. Urine output was low and subsequently was improved and currently is up to 30 mL an hour. Hemoglobin from this morning was at 6.8 and the patient is receiving units of packed RBC. Her current CVP is around 17. Echocardiogram is to follow. Chest x-ray from today showing a component of pulmonary vessel congestion/interstitial edema. The patient is a mediastinal and the right pleural chest tube and output is minimal at this point and there is no evidence of any pneumothorax. Overall output from the chest is of the 400 mL since yesterday's shift. Objective - Vital Signs Vital signs: Vital Signs Temp 97.8 F 12/28/20 05:55 Pulse 78 12/28/20 06:00 Resp 18 12/28/20 06:00 BP 109/41 12/28/20 05:55 Pulse Ox 91 L 12/28/20 06:00 Intake & Output 12/27/20 12/27/20 12/28/20 06:59 18:59 06:59 Intake Total 3966.197 2165.818 1052 Output Total 920 520 662 Balance 455.285 856.818 390 Weight 66.6 kg 66.6 kg 67.7 kg Intake: IV 1231 1375 1052 0.9 NaCl 440 ACETAMINOPHEN IV (For NPO 100 ) 1,000 mg In Empty Bag 1 bag @ 400 mls/hr IVPB Q6HR [facility] Rx#:[id number] Albumin Human 5% 250 ml 250 750 250 In Empty Bag 1 bag @ 250 mls/hr IVPB Q1HR PRN Rx#: [id number] CO/CI 150 30 Lactated Ringers 1,000 ml 650 470 40 @ 20 mls/hr IV .Q24H KOBI Rx#:[id number] Sodium bicarb ampule 250 ceFAZolin 2 gm In Sodium 50 Chloride 0.9% 50 ml @ 100 mls/hr IVPB Q8HR [facility] Rx# :[id number] pressure bags 81 75 72 Intake, IV Titration 44.285 1.818 Amount Clevidipine Butyrate 25 15.467 mg In Empty Bag 1 bag @ 1 MG/HR 2 mls/hr IV .Q24H [facility] Rx#:[id number] Dexmedetomidine/0.9% NaCl 21.36 (Pmx) 400 mcg In Empty Bag 1 bag @ Titrate IV . Q0M [facility] Rx#:[id number] Insulin Regular 100 unit 7.458 1.818 In Sodium Chloride 0.9% 100 ml @ Per Protocol IV .Q0M KOBI Rx#:[id number] Oral 100 Blood Product 0 Rc As-1 Unit 0 [id number] Output: Chest Tube Drainage 460 320 380 Right Pleural/Mediastinal 460 320 380 Urine 460 200 282 Other: Voiding Method Indwelling Catheter Indwelling Catheter Indwelling Catheter ABP, PAP, CO, CI - Last Documented Arterial Blood Pressure 108/41 Pulmonary Artery Pressure 12/5 Cardiac Output 4.2 Cardiac Index 2.6 - Exam Gen. appearance she is calm and currently on a BiPAP at a pressure of 12/5 with an FiO2 of 90%. She is quite comfortable and synchronous with the machine. Head exam was generally normal. There was no scleral icterus or corneal arcus. Mucous membranes were moist. Neck was supple and without jugular venous distension, thyromegaly, or carotid bruits. Carotids were easily palpable bilaterally. There was no adenopathy. The patient has a right IJ [place]-Kelli catheter, has been removed and the patient currently has a Cordis in place Lungs sounds are equal and symmetrical breath sounds bilaterally and the patient is a right pleural and mediastinal chest tube Cardiac exam revealed the PMI to be normally situated and sized. The rhythm was regular and no extrasystoles were noted during several minutes of auscultation. The first and second heart sounds were normal and physiologic splitting of the second heart sound was noted. There were no murmurs, rubs, clicks, or gallops. Abdominal exam revealed normal bowel sounds. The abdomen was soft, non-tender, and without masses, organomegaly, or appreciable enlargement of the abdominal aorta. Examination of the extremities revealed easily palpable radial, femoral and pedal pulses. There was no cyanosis, clubbing or edema. Examination of the skin revealed no evidence of significant rashes, suspicious appearing nevi or other concerning lesions. Neurologic , no focal neurological deficit and the patient is awake and alert 3 - Labs CBC & Chem 7: 12/28/20 04:00 12/28/20 04:00 Labs: Abnormal Lab Results - Last 24 Hours (Table) 0312/27/20 12/27/20 Range/Units 14:32 06:52 08:04 WBC (3.8-10.6) k/uL RBC (3.80-5.40) m/uL Hgb (11.4-16.0) gm/dL Hct (34.0-46.0) % RDW (11.5-15.5) % Plt Count (150-450) k/uL Neutrophils # (1.3-7.7) k/uL Lymphocytes # (1.0-4.8) k/uL Monocytes # (0-1.0) k/uL ABG pH (7.35-7.45) ABG pO2 (83-108) mmHg ABG HCO3 (21-25) mmol/L ABG Total CO2 (19-24) mmol/L ABG O2 Saturation (94-97) % ABG Lactic Acid (0.5-1.6) mmol/L Potassium (3.5-5.1) mmol/L Carbon Dioxide (22-30) mmol/L BUN (7-17) mg/dL Creatinine (0.52-1.04) mg/dL Glucose (74-99) mg/dL POC Glucose (mg/dL) 131 H 126 H (75-99) mg/dL Plasma Lactic Acid Iraj (0.7-2.0) mmol/L Calcium (8.4-10.2) mg/dL Ionized Calcium Beatrice (4.5-5.3) mg/dL Phosphorus (2.5-4.5) mg/dL Magnesium (1.6-2.3) mg/dL Total Bilirubin (0.2-1.3) mg/dL AST (14-36) U/L ALT (4-34) U/L Alkaline Phosphatase (38-126) U/L Total Protein (6.3-8.2) g/dL Crossmatch See Detail 12/27/20 12/27/20 12/27/20 Range/Units 09:02 11:11 11:51 WBC (3.8-10.6) k/uL RBC (3.80-5.40) m/uL Hgb (11.4-16.0) gm/dL Hct (34.0-46.0) % RDW (11.5-15.5) % Plt Count (150-450) k/uL Neutrophils # (1.3-7.7) k/uL Lymphocytes # (1.0-4.8) k/uL Monocytes # (0-1.0) k/uL ABG pH (7.35-7.45) ABG pO2 (83-108) mmHg ABG HCO3 (21-25) mmol/L ABG Total CO2 (19-24) mmol/L ABG O2 Saturation (94-97) % ABG Lactic Acid (0.5-1.6) mmol/L Potassium (3.5-5.1) mmol/L Carbon Dioxide (22-30) mmol/L BUN (7-17) mg/dL Creatinine (0.52-1.04) mg/dL Glucose (74-99) mg/dL POC Glucose (mg/dL) 124 H 157 H 159 H (75-99) mg/dL Plasma Lactic Acid Iraj (0.7-2.0) mmol/L Calcium (8.4-10.2) mg/dL Ionized Calcium Beatrice (4.5-5.3) mg/dL Phosphorus (2.5-4.5) mg/dL Magnesium (1.6-2.3) mg/dL Total Bilirubin (0.2-1.3) mg/dL AST (14-36) U/L ALT (4-34) U/L Alkaline Phosphatase (38-126) U/L Total Protein (6.3-8.2) g/dL Crossmatch 12/27/20 12/27/20 12/27/20 Range/Units 15:06 16:18 18:05 WBC (3.8-10.6) k/uL RBC (3.80-5.40) m/uL Hgb (11.4-16.0) gm/dL Hct (34.0-46.0) % RDW (11.5-15.5) % Plt Count (150-450) k/uL Neutrophils # (1.3-7.7) k/uL Lymphocytes # (1.0-4.8) k/uL Monocytes # (0-1.0) k/uL ABG pH (7.35-7.45) ABG pO2 (83-108) mmHg ABG HCO3 (21-25) mmol/L ABG Total CO2 (19-24) mmol/L ABG O2 Saturation (94-97) % ABG Lactic Acid (0.5-1.6) mmol/L Potassium (3.5-5.1) mmol/L Carbon Dioxide (22-30) mmol/L BUN (7-17) mg/dL Creatinine (0.52-1.04) mg/dL Glucose (74-99) mg/dL POC Glucose (mg/dL) 185 H 144 H 147 H (75-99) mg/dL Plasma Lactic Acid Iraj (0.7-2.0) mmol/L Calcium (8.4-10.2) mg/dL Ionized Calcium Beatrice (4.5-5.3) mg/dL Phosphorus (2.5-4.5) mg/dL Magnesium (1.6-2.3) mg/dL Total Bilirubin (0.2-1.3) mg/dL AST (14-36) U/L ALT (4-34) U/L Alkaline Phosphatase (38-126) U/L Total Protein (6.3-8.2) g/dL Crossmatch 12/27/20 12/27/20 12/27/20 Range/Units 18:06 18:06 18:57 WBC 18.3 H (3.8-10.6) k/uL RBC 2.34 L (3.80-5.40) m/uL Hgb 7.5 L (11.4-16.0) gm/dL Hct 21.9 L (34.0-46.0) % RDW 17.1 H (11.5-15.5) % Plt Count 140 L (150-450) k/uL Neutrophils # (1.3-7.7) k/uL Lymphocytes # (1.0-4.8) k/uL Monocytes # (0-1.0) k/uL ABG pH (7.35-7.45) ABG pO2 (83-108) mmHg ABG HCO3 (21-25) mmol/L ABG Total CO2 (19-24) mmol/L ABG O2 Saturation (94-97) % ABG Lactic Acid (0.5-1.6) mmol/L Potassium 5.3 H (3.5-5.1) mmol/L Carbon Dioxide 14 L (22-30) mmol/L BUN 26 H (7-17) mg/dL Creatinine 1.40 H (0.52-1.04) mg/dL Glucose 130 H (74-99) mg/dL POC Glucose (mg/dL) 127 H (75-99) mg/dL Plasma Lactic Acid Iraj (0.7-2.0) mmol/L Calcium 8.1 L (8.4-10.2) mg/dL Ionized Calcium Beatrice (4.5-5.3) mg/dL Phosphorus 7.5 H (2.5-4.5) mg/dL Magnesium 2.4 H (1.6-2.3) mg/dL Total Bilirubin (0.2-1.3) mg/dL AST 173 H (14-36) U/L ALT 93 H (4-34) U/L Alkaline Phosphatase 29 L (38-126) U/L Total Protein 5.3 L (6.3-8.2) g/dL Crossmatch 12/27/20 12/27/20 12/27/20 Range/Units 20:40 22:13 22:16 WBC (3.8-10.6) k/uL RBC (3.80-5.40) m/uL Hgb (11.4-16.0) gm/dL Hct (34.0-46.0) % RDW (11.5-15.5) % Plt Count (150-450) k/uL Neutrophils # (1.3-7.7) k/uL Lymphocytes # (1.0-4.8) k/uL Monocytes # (0-1.0) k/uL ABG pH 7.23 L (7.35-7.45) ABG pO2 74 L (83-108) mmHg ABG HCO3 15 L (21-25) mmol/L ABG Total CO2 16 L (19-24) mmol/L ABG O2 Saturation 93.0 L (94-97) % ABG Lactic Acid (0.5-1.6) mmol/L Potassium (3.5-5.1) mmol/L Carbon Dioxide (22-30) mmol/L BUN (7-17) mg/dL Creatinine (0.52-1.04) mg/dL Glucose (74-99) mg/dL POC Glucose (mg/dL) 138 H 140 H (75-99) mg/dL Plasma Lactic Acid Iraj (0.7-2.0) mmol/L Calcium (8.4-10.2) mg/dL Ionized Calcium Beatrice (4.5-5.3) mg/dL Phosphorus (2.5-4.5) mg/dL Magnesium (1.6-2.3) mg/dL Total Bilirubin (0.2-1.3) mg/dL AST (14-36) U/L ALT (4-34) U/L Alkaline Phosphatase (38-126) U/L Total Protein (6.3-8.2) g/dL Crossmatch 12/27/20 12/27/20 12/27/20 Range/Units 22:20 22:20 22:45 WBC 16.2 H (3.8-10.6) k/uL RBC 2.38 L (3.80-5.40) m/uL Hgb 7.4 L (11.4-16.0) gm/dL Hct 22.3 L (34.0-46.0) % RDW 17.1 H (11.5-15.5) % Plt Count 141 L (150-450) k/uL Neutrophils # 14.2 H (1.3-7.7) k/uL Lymphocytes # 0.7 L (1.0-4.8) k/uL Monocytes # (0-1.0) k/uL ABG pH (7.35-7.45) ABG pO2 (83-108) mmHg ABG HCO3 (21-25) mmol/L ABG Total CO2 (19-24) mmol/L ABG O2 Saturation (94-97) % ABG Lactic Acid 7.6 H* (0.5-1.6) mmol/L Potassium 5.5 H (3.5-5.1) mmol/L Carbon Dioxide 16 L (22-30) mmol/L BUN 29 H (7-17) mg/dL Creatinine 1.60 H (0.52-1.04) mg/dL Glucose 125 H (74-99) mg/dL POC Glucose (mg/dL) (75-99) mg/dL Plasma Lactic Acid Iraj (0.7-2.0) mmol/L Calcium 8.3 L (8.4-10.2) mg/dL Ionized Calcium Beatrice (4.5-5.3) mg/dL Phosphorus (2.5-4.5) mg/dL Magnesium (1.6-2.3) mg/dL Total Bilirubin 1.6 H (0.2-1.3) mg/dL AST 411 H (14-36) U/L ALT 214 H (4-34) U/L Alkaline Phosphatase 28 L (38-126) U/L Total Protein 5.4 L (6.3-8.2) g/dL Crossmatch 12/27/20 12/28/20 12/28/20 Range/Units 23:43 00:24 00:58 WBC (3.8-10.6) k/uL RBC (3.80-5.40) m/uL Hgb (11.4-16.0) gm/dL Hct (34.0-46.0) % RDW (11.5-15.5) % Plt Count (150-450) k/uL Neutrophils # (1.3-7.7) k/uL Lymphocytes # (1.0-4.8) k/uL Monocytes # (0-1.0) k/uL ABG pH 7.32 L (7.35-7.45) ABG pO2 78 L (83-108) mmHg ABG HCO3 18 L (21-25) mmol/L ABG Total CO2 (19-24) mmol/L ABG O2 Saturation (94-97) % ABG Lactic Acid (0.5-1.6) mmol/L Potassium (3.5-5.1) mmol/L Carbon Dioxide (22-30) mmol/L BUN (7-17) mg/dL Creatinine (0.52-1.04) mg/dL Glucose (74-99) mg/dL POC Glucose (mg/dL) 151 H 146 H (75-99) mg/dL Plasma Lactic Acid Iraj (0.7-2.0) mmol/L Calcium (8.4-10.2) mg/dL Ionized Calcium Beatrice (4.5-5.3) mg/dL Phosphorus (2.5-4.5) mg/dL Magnesium (1.6-2.3) mg/dL Total Bilirubin (0.2-1.3) mg/dL AST (14-36) U/L ALT (4-34) U/L Alkaline Phosphatase (38-126) U/L Total Protein (6.3-8.2) g/dL Crossmatch 12/28/20 12/28/20 12/28/20 Range/Units 01:49 01:55 01:58 WBC (3.8-10.6) k/uL RBC (3.80-5.40) m/uL Hgb (11.4-16.0) gm/dL Hct (34.0-46.0) % RDW (11.5-15.5) % Plt Count (150-450) k/uL Neutrophils # (1.3-7.7) k/uL Lymphocytes # (1.0-4.8) k/uL Monocytes # (0-1.0) k/uL ABG pH 7.34 L (7.35-7.45) ABG pO2 64 L (83-108) mmHg ABG HCO3 20 L (21-25) mmol/L ABG Total CO2 (19-24) mmol/L ABG O2 Saturation 90.0 L (94-97) % ABG Lactic Acid (0.5-1.6) mmol/L Potassium (3.5-5.1) mmol/L Carbon Dioxide (22-30) mmol/L BUN (7-17) mg/dL Creatinine (0.52-1.04) mg/dL Glucose (74-99) mg/dL POC Glucose (mg/dL) 144 H (75-99) mg/dL Plasma Lactic Acid Iraj 9.7 H* (0.7-2.0) mmol/L Calcium (8.4-10.2) mg/dL Ionized Calcium Beatrice (4.5-5.3) mg/dL Phosphorus (2.5-4.5) mg/dL Magnesium (1.6-2.3) mg/dL Total Bilirubin (0.2-1.3) mg/dL AST (14-36) U/L ALT (4-34) U/L Alkaline Phosphatase (38-126) U/L Total Protein (6.3-8.2) g/dL Crossmatch 12/28/20 12/28/20 12/28/20 Range/Units 03:46 04:00 04:00 WBC 16.8 H (3.8-10.6) k/uL RBC 2.19 L (3.80-5.40) m/uL Hgb 6.8 L* (11.4-16.0) gm/dL Hct 20.1 L (34.0-46.0) % RDW 17.3 H (11.5-15.5) % Plt Count 136 L (150-450) k/uL Neutrophils # 14.4 H (1.3-7.7) k/uL Lymphocytes # 0.9 L (1.0-4.8) k/uL Monocytes # 1.2 H (0-1.0) k/uL ABG pH (7.35-7.45) ABG pO2 71 L (83-108) mmHg ABG HCO3 (21-25) mmol/L ABG Total CO2 (19-24) mmol/L ABG O2 Saturation 93.0 L (94-97) % ABG Lactic Acid (0.5-1.6) mmol/L Potassium (3.5-5.1) mmol/L Carbon Dioxide (22-30) mmol/L BUN 32 H (7-17) mg/dL Creatinine 1.53 H (0.52-1.04) mg/dL Glucose 138 H (74-99) mg/dL POC Glucose (mg/dL) (75-99) mg/dL Plasma Lactic Acid Iraj (0.7-2.0) mmol/L Calcium 8.0 L (8.4-10.2) mg/dL Ionized Calcium Beatrice 4.2 L (4.5-5.3) mg/dL Phosphorus (2.5-4.5) mg/dL Magnesium (1.6-2.3) mg/dL Total Bilirubin 1.9 H (0.2-1.3) mg/dL AST 1140 H (14-36) U/L ALT 662 H (4-34) U/L Alkaline Phosphatase 30 L (38-126) U/L Total Protein 5.0 L (6.3-8.2) g/dL Crossmatch 12/28/20 12/28/20 12/28/20 Range/Units 04:00 04:06 04:25 WBC (3.8-10.6) k/uL RBC (3.80-5.40) m/uL Hgb (11.4-16.0) gm/dL Hct (34.0-46.0) % RDW (11.5-15.5) % Plt Count (150-450) k/uL Neutrophils # (1.3-7.7) k/uL Lymphocytes # (1.0-4.8) k/uL Monocytes # (0-1.0) k/uL ABG pH (7.35-7.45) ABG pO2 (83-108) mmHg ABG HCO3 (21-25) mmol/L ABG Total CO2 (19-24) mmol/L ABG O2 Saturation (94-97) % ABG Lactic Acid 8.6 H* (0.5-1.6) mmol/L Potassium (3.5-5.1) mmol/L Carbon Dioxide (22-30) mmol/L BUN (7-17) mg/dL Creatinine (0.52-1.04) mg/dL Glucose (74-99) mg/dL POC Glucose (mg/dL) 154 H (75-99) mg/dL Plasma Lactic Acid Iraj (0.7-2.0) mmol/L Calcium (8.4-10.2) mg/dL Ionized Calcium Beatrice (4.5-5.3) mg/dL Phosphorus (2.5-4.5) mg/dL Magnesium (1.6-2.3) mg/dL Total Bilirubin (0.2-1.3) mg/dL AST (14-36) U/L ALT (4-34) U/L Alkaline Phosphatase (38-126) U/L Total Protein (6.3-8.2) g/dL Crossmatch See Detail 12/28/20 12/28/20 Range/Units 05:01 06:07 WBC (3.8-10.6) k/uL RBC (3.80-5.40) m/uL Hgb (11.4-16.0) gm/dL Hct (34.0-46.0) % RDW (11.5-15.5) % Plt Count (150-450) k/uL Neutrophils # (1.3-7.7) k/uL Lymphocytes # (1.0-4.8) k/uL Monocytes # (0-1.0) k/uL ABG pH (7.35-7.45) ABG pO2 (83-108) mmHg ABG HCO3 (21-25) mmol/L ABG Total CO2 (19-24) mmol/L ABG O2 Saturation (94-97) % ABG Lactic Acid (0.5-1.6) mmol/L Potassium (3.5-5.1) mmol/L Carbon Dioxide (22-30) mmol/L BUN (7-17) mg/dL Creatinine (0.52-1.04) mg/dL Glucose (74-99) mg/dL POC Glucose (mg/dL) 155 H 157 H (75-99) mg/dL Plasma Lactic Acid Iraj (0.7-2.0) mmol/L Calcium (8.4-10.2) mg/dL Ionized Calcium Beatrice (4.5-5.3) mg/dL Phosphorus (2.5-4.5) mg/dL Magnesium (1.6-2.3) mg/dL Total Bilirubin (0.2-1.3) mg/dL AST (14-36) U/L ALT (4-34) U/L Alkaline Phosphatase (38-126) U/L Total Protein (6.3-8.2) g/dL Crossmatch Assessment and Plan Plan: 1 aortic valve replacement and single-vessel bypass surgery with SVG to RCA and a left atrial clipping and the patient is currently postop day #2. The patient became acutely hypotensive, low urine output and lactic acidosis and I am considering the possibility of a drop in the cardiac output any cardiogenic shock. As such, the patient was started on Primacor which is running at 0.2 mcg/kg per minute and also on dopamine 3 mcg/kg per minute. Urine output is improving. She is receiving a unit of packed RBC. She was given sodium bicarbo bebeto for severe lactic acidosis. She has also developed a shock liver. 2 post thoracotomy, currently intubated on a mechanical ventilator. Chest x-ray was noted. Chest tubes are in place, output is minimal and the patient has no evidence of any air leak. Continue using incentive spirometer. The patient is extubated and currently she is on a BiPAP for respiratory support, and the patient had a follow-up chest x-ray showing a component of interstitial edema/pulmonary edema secondary to CHF 3 severe lactic acidosis, considered the possibility of a cardiogenic shock 4 shock liver secondary to above 5 anemia with acute drop in hemoglobin down to 6.8, no signs of bleeding. 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 Keep in ICU for another 24 hours. Patient is critical. Abdomen is soft. I think the predominant presentation is probably drop in his cardiac output and cardiogenic shock. We'll continue to follow. Critically care evaluation, case discussed with the cardiothoracic team.,>30 min eval. Time with Patient: Greater than 30
[2020-12-28 06:57] LABS: Glucose,Whole Blood 174 mg/dL (75-99)
[2020-12-28] MEDS ORDERED: CALCIUM GLUCONATE 1 GM in SODIUM CHLORIDE 0.9% 100 ML IVPB ONE ×2 (07:05→15:30)
[2020-12-28 07:16] LABS: INR 2.8 (<1.2)
[2020-12-28] MEDS: IPRATROPIUM-ALBUTEROL 3 ML NEB INHALATION SCH ×4 (07:33→19:51)
--- NOTE | 2020-12-28 07:52 | P.PN ---
Subjective Progress Note Date: 12/27/20 Principal diagnosis: Severe bicuspid aortic valve stenosis, single-vessel coronary artery disease. 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 POD #1 aortic valve replacement with a #21 mm Jackson Inspiris bioprosthetic aortic valve. Coronary artery bypass grafting 1 with a reverse saphenous vein graft off the aorta to the right coronary artery. Clip ligation of left atrial appendage with a 35 mm Atriclip. Intraoperative transesophageal echocardiogram. Postoperative acute blood loss anemia, expected due to hemodilution and cardiopulmonary bypass. The patient was seen in follow-up today 12/27/2020 at her bedside in the intensive care unit. Currently she is sitting up to the bedside chair, is awake, alert and oriented 3. She is in no acute apparent distress. She was successfully extubated at 9:25 PM last evening, currently she is on 5 L nasal cannula with oxygen saturation is 95%. She is achieving 500 mL on her incentive spirometry with encouragement. She remains hemodynamically stable and is currently on no inotropic or pressor support. Right IJ Cordis and Winslow-Kelli remain in place with current hemodynamic showing a cardiac output 3.2, cardiac index 2.0, PA pressures 15 over 4 and CVP 8 mmHg. She denies any complaints of shortness of breath at this time, although she is complaining of some surgical type pain rating her pain 5-10 on the pain scale. She is also complaining of some nausea which has been treated with Zofran and Reglan. Mediastinal and right pleural chest tubes remain in place to low continuous wall suction -20 cm H2O. Intermittent air leak is present. Draining thin serosanguineous drainage with 300 mL output last 8 hours and 750 mL output since surgery. Acevedo catheter remains in place for accurate I's and O's with 300 mL output in the last 8 hours. Laboratory results this morning show a WBC count of 15.2, hemoglobin 8.0, platelets 168, BUN 19 and creatinine 0.78. AST is slightly elevated at 67. Objective - Vital Signs Vital signs: Vital Signs Temp 98.4 F 12/26/20 20:00 Pulse 71 12/27/20 07:00 Resp 27 H 12/27/20 07:00 BP 106/47 12/27/20 07:00 Pulse Ox 95 12/27/20 07:00 Intake & Output 12/26/20 12/27/20 12/27/20 18:59 06:59 18:59 Intake Total 0086.021 1101.285 Output Total 2835 920 Balance -956.603 455.285 Weight 66.6 kg Intake: IV 571 1231 ACETAMINOPHEN IV (For NPO 100 100 ) 1,000 mg In Empty Bag 1 bag @ 400 mls/hr IVPB Q6HR [facility] Rx#:[id number] Albumin Human 5% 250 ml 250 In Empty Bag 1 bag @ 250 mls/hr IVPB Q1HR PRN Rx#: [id number] CO/CI 120 150 Lactated Ringers 1,000 ml 250 650 @ 50 mls/hr IV .Q20H [facility] Rx#:[id number] ceFAZolin 2 gm In Sodium 50 Chloride 0.9% 50 ml @ 100 mls/hr IVPB Q8HR [facility] Rx# :[id number] pressure bags 81 Intake, IV Titration 29.397 44.285 Amount Clevidipine Butyrate 25 21.933 15.467 mg In Empty Bag 1 bag @ 1 MG/HR 2 mls/hr IV .Q24H [facility] Rx#:[id number] Dexmedetomidine/0.9% NaCl 1.368 21.36 (Pmx) 400 mcg In Empty Bag 1 bag @ Titrate IV . Q0M [facility] Rx#:[id number] Insulin Regular 100 unit 4.368 7.458 In Sodium Chloride 0.9% 100 ml @ Per Protocol IV .Q0M [facility] Rx#:[id number] propofoL 1,000 mg In 1.728 Empty Bag 1 bag @ Titrate IV .Q0M [facility]BOI Rx#: [id number] Oral 100 Blood Product 1278 Ffp 24 Cpd Unit 343 [id number] Ffp 24 Cpd Unit 335 [id number] Platelet Pheresis Pas 290 Psoralen Unit [id number] Rc As-1 Unit 310 [id number] Output: Chest Tube Drainage 100 460 Right Pleural/Mediastinal 100 460 Urine 935 460 Estimated Blood Loss 1800 Other: Voiding Method Indwelling Catheter Indwelling Catheter ABP, PAP, CO, CI - Last Documented Arterial Blood Pressure 114/36 Pulmonary Artery Pressure 15/3 Cardiac Output 3.2 Cardiac Index 2 - Constitutional General appearance: Present: average body habitus, cooperative, no acute distress - EENT Eyes: Present: normal appearance. Absent: scleral icterus ENT: Present: hearing grossly normal - Neck Details: Neck supple, no JVD, no lymphadenopathy, right IJ Cordis in place with Winslow-Kelli catheter. - Respiratory Details: Lung sounds essentially clear throughout, diminished to her bilateral bases. No wheezes, rhonchi or crackles. Respirations are symmetrical and nonlabored. Oxygen saturation are 95% on 5 L nasal cannula. Achieving 500 mL on her inc entive spirometry. Mediastinal and right pleural chest tubes remain in place to low continuous wall suction -20 cm H2O. Intermittent air leak is present. Draining thin serosanguineous drainage with 300 mL output in the last 8 hours and 750 mL output since surgery. - Cardiovascular Details: Regular rhythm and rate. S1 and S2 present, negative for S3, gallop or murmur. Sternum is stable. Bedside telemetry showing normal sinus rhythm with global ST elevation heart rate 71 BPM. No edema present. Ventricular epicardial pacemaker wires in place and connected to bedside backup pacemaker generator on a VVI 50. Heart hugger is in place and she is demonstrating appropriate use. Knee-high DARBY hose and sequential compression devices in place to bilateral lower extremities. Right IJ Cordis and Winslow-Kelli catheter in place with current hemodynamic showing a cardiac output 3.2, cardiac index 2.0, PA pressures 15 or foreign CVP 8 mmHg. - Gastrointestinal Gastrointestinal Comment(s): Abdomen soft, nontender and nondistended. Hypoactive bowel sounds present for abdominal quadrants. No guarding or rigidity. Tolerating oral intake. - Genitourinary Genitourinary Comment(s): Acevedo catheter for accurate I&O. Draining clear yellow urine with 300 mL output in the last 8 hours. - Integumentary Integumentary Comment(s): Skin is warm and dry. No clubbing or cyanosis is present. Midline sternal incision is clean, dry and approximated. No drainage or redness is present. Right lower extremity EVH site is clean, dry and approximated. No drainage redness is present. - Neurologic Neurologic: Present: CNII-XII intact. Absent: focal deficits - Musculoskeletal Musculoskeletal: Present: gait normal, generalized weakness, strength equal bilaterally - Psychiatric Psychiatric: Present: A&O x's 3, appropriate affect, intact judgment & insight - Allied health notes Allied health notes reviewed: nursing - Labs CBC & Chem 7: 12/28/20 04:00 12/28/20 04:00 Labs: Abnormal Lab Results - Last 24 Hours (Table) 12/15/20 12/26/20 12/26/20 Range/Units 14:32 08:25 09:13 WBC (3.8-10.6) k/uL RBC (3.80-5.40) m/uL Hgb (11.4-16.0) gm/dL Hct (34.0-46.0) % RDW (11.5-15.5) % Plt Count (150-450) k/uL Neutrophils # (1.3-7.7) k/uL Lymphocytes # (1.0-4.8) k/uL Monocytes # (0-1.0) k/uL PT (9.0-12.0) sec INR (<1.2) APTT (22.0-30.0) sec Fibrinogen (200-500) mg/dL ABG pH 7.46 H 7.33 L (7.35-7.45) ABG pCO2 46 H (35-45) mmHg ABG pO2 263 H 261 H (83-108) mmHg ABG HCO3 (21-25) mmol/L ABG Total CO2 26 H 26 H (19-24) mmol/L ABG O2 Saturation 100.0 H 99.8 H (94-97) % ABG Hematocrit 32 L 30 L (34.0-46.0) % ABG Potassium (3.4-4.5) mmol/L ABG Ionized Calcium (4.5-5.3) mg/dL ABG Glucose 132 H 176 H (75-99) mg/dL Hemoglobin 10.3 L 9.7 L (11.4-16.0) gm/dL Chloride (98-107) mmol/L BUN (7-17) mg/dL Glucose (74-99) mg/dL POC Glucose (mg/dL) (75-99) mg/dL Calcium (8.4-10.2) mg/dL Magnesium (1.6-2.3) mg/dL AST (14-36) U/L Alkaline Phosphatase (38-126) U/L Total Protein (6.3-8.2) g/dL Albumin (3.5-5.0) g/dL Arterial Blood Potassium (3.4-4.5) mmol/L Arterial Blood Glucose 132 H 176 H (75-99) mg/dL Crossmatch See Detail 12/26/20 12/26/20 12/26/20 Range/Units 09:28 09:58 10:07 WBC (3.8-10.6) k/uL RBC (3.80-5.40) m/uL Hgb (11.4-16.0) gm/dL Hct (34.0-46.0) % RDW (11.5-15.5) % Plt Count (150-450) k/uL Neutrophils # (1.3-7.7) k/uL Lymphocytes # (1.0-4.8) k/uL Monocytes # (0-1.0) k/uL PT (9.0-12.0) sec INR (<1.2) APTT (22.0-30.0) sec Fibrinogen (200-500) mg/dL ABG pH 7.31 L (7.35-7.45) ABG pCO2 (35-45) mmHg ABG pO2 >420 H 372 H >420 H (83-108) mmHg ABG HCO3 (21-25) mmol/L ABG Total CO2 25 H 25 H (19-24) mmol/L ABG O2 Saturation 100.0 H 100.0 H 100.0 H (94-97) % ABG Hematocrit 22 L 19 L* 20 L* (34.0-46.0) % ABG Potassium 4.7 H (3.4-4.5) mmol/L ABG Ionized Calcium 4.0 L 4.3 L 4.4 L (4.5-5.3) mg/dL ABG Glucose 187 H 204 H 149 H (75-99) mg/dL Hemoglobin 7.2 L 6.2 L* 6.4 L* (11.4-16.0) gm/dL Chloride (98-107) mmol/L BUN (7-17) mg/dL Glucose (74-99) mg/dL POC Glucose (mg/dL) (75-99) mg/dL Calcium (8.4-10.2) mg/dL Magnesium (1.6-2.3) mg/dL AST (14-36) U/L Alkaline Phosphatase (38-126) U/L Total Protein (6.3-8.2) g/dL Albumin (3.5-5.0) g/dL Arterial Blood Potassium 4.7 H (3.4-4.5) mmol/L Arterial Blood Glucose 187 H 204 H 149 H (75-99) mg/dL Crossmatch 12/26/20 12/26/20 12/26/20 Range/Units 13:30 13:30 13:30 WBC 13.3 H (3.8-10.6) k/uL RBC 2.43 L (3.80-5.40) m/uL Hgb 7.4 L D (11.4-16.0) gm/dL Hct 22.2 L (34.0-46.0) % RDW 16.7 H (11.5-15.5) % Plt Count 117 L (150-450) k/uL Neutrophils # 11.5 H (1.3-7.7) k/uL Lymphocytes # 0.6 L (1.0-4.8) k/uL Monocytes # 1.2 H (0-1.0) k/uL PT 13.1 H (9.0-12.0) sec INR 1.3 H (<1.2) APTT 32.4 H (22.0-30.0) sec Fibrinogen (200-500) mg/dL ABG pH (7.35-7.45) ABG pCO2 (35-45) mmHg ABG pO2 (83-108) mmHg ABG HCO3 (21-25) mmol/L ABG Total CO2 (19-24) mmol/L ABG O2 Saturation (94-97) % ABG Hematocrit (34.0-46.0) % ABG Potassium (3.4-4.5) mmol/L ABG Ionized Calcium (4.5-5.3) mg/dL ABG Glucose (75-99) mg/dL Hemoglobin (11.4-16.0) gm/dL Chloride 109 H (98-107) mmol/L BUN (7-17) mg/dL Glucose 71 L (74-99) mg/dL POC Glucose (mg/dL) (75-99) mg/dL Calcium (8.4-10.2) mg/dL Magnesium 2.8 H (1.6-2.3) mg/dL AST 38 H (14-36) U/L Alkaline Phosphatase 29 L (38-126) U/L Total Protein 4.5 L (6.3-8.2) g/dL Albumin 2.8 L (3.5-5.0) g/dL Arterial Blood Potassium (3.4-4.5) mmol/L Arterial Blood Glucose (75-99) mg/dL Crossmatch 12/26/20 12/26/20 12/26/20 Range/Units 13:34 13:59 14:00 WBC (3.8-10.6) k/uL RBC (3.80-5.40) m/uL Hgb (11.4-16.0) gm/dL Hct (34.0-46.0) % RDW (11.5-15.5) % Plt Count (150-450) k/uL Neutrophils # (1.3-7.7) k/uL Lymphocytes # (1.0-4.8) k/uL Monocytes # (0-1.0) k/uL PT (9.0-12.0) sec INR (<1.2) APTT (22.0-30.0) sec Fibrinogen 144 L (200-500) mg/dL ABG pH 7.33 L (7.35-7.45) ABG pCO2 51 H (35-45) mmHg ABG pO2 317 H (83-108) mmHg ABG HCO3 27 H (21-25) mmol/L ABG Total CO2 28 H (19-24) mmol/L ABG O2 Saturation 100.0 H (94-97) % ABG Hematocrit (34.0-46.0) % ABG Potassium (3.4-4.5) mmol/L ABG Ionized Calcium (4.5-5.3) mg/dL ABG Glucose (75-99) mg/dL Hemoglobin (11.4-16.0) gm/dL Chloride (98-107) mmol/L BUN (7-17) mg/dL Glucose (74-99) mg/dL POC Glucose (mg/dL) 72 L (75-99) mg/dL Calcium (8.4-10.2) mg/dL Magnesium (1.6-2.3) mg/dL AST (14-36) U/L Alkaline Phosphatase (38-126) U/L Total Protein (6.3-8.2) g/dL Albumin (3.5-5.0) g/dL Arterial Blood Potassium (3.4-4.5) mmol/L Arterial Blood Glucose (75-99) mg/dL Crossmatch 12/26/20 12/26/20 12/26/20 Range/Units 15:02 15:53 15:55 WBC 12.4 H (3.8-10.6) k/uL RBC 2.67 L (3.80-5.40) m/uL Hgb 8.0 L (11.4-16.0) gm/dL Hct 24.1 L (34.0-46.0) % RDW 17.1 H (11.5-15.5) % Plt Count 147 L (150-450) k/uL Neutrophils # 10.3 H (1.3-7.7) k/uL Lymphocytes # 0.9 L (1.0-4.8) k/uL Monocytes # 1.2 H (0-1.0) k/uL PT (9.0-12.0) sec INR (<1.2) APTT (22.0-30.0) sec Fibrinogen (200-500) mg/dL ABG pH (7.35-7.45) ABG pCO2 (35-45) mmHg ABG pO2 (83-108) mmHg ABG HCO3 (21-25) mmol/L ABG Total CO2 (19-24) mmol/L ABG O2 Saturation (94-97) % ABG Hematocrit (34.0-46.0) % ABG Potassium (3.4-4.5) mmol/L ABG Ionized Calcium (4.5-5.3) mg/dL ABG Glucose (75-99) mg/dL Hemoglobin (11.4-16.0) gm/dL Chloride (98-107) mmol/L BUN (7-17) mg/dL Glucose (74-99) mg/dL POC Glucose (mg/dL) 116 H 168 H (75-99) mg/dL Calcium (8.4-10.2) mg/dL Magnesium (1.6-2.3) mg/dL AST (14-36) U/L Alkaline Phosphatase (38-126) U/L Total Protein (6.3-8.2) g/dL Albumin (3.5-5.0) g/dL Arterial Blood Potassium (3.4-4.5) mmol/L Arterial Blood Glucose (75-99) mg/dL Crossmatch 12/26/20 12/26/20 12/26/20 Range/Units 17:03 17:57 18:06 WBC (3.8-10.6) k/uL RBC 2.53 L (3.80-5.40) m/uL Hgb 7.7 L (11.4-16.0) gm/dL Hct 22.8 L (34.0-46.0) % RDW 17.1 H (11.5-15.5) % Plt Count (150-450) k/uL Neutrophils # 9.2 H (1.3-7.7) k/uL Lymphocytes # 0.5 L (1.0-4.8) k/uL Monocytes # (0-1.0) k/uL PT (9.0-12.0) sec INR (<1.2) APTT (22.0-30.0) sec Fibrinogen (200-500) mg/dL ABG pH (7.35-7.45) ABG pCO2 (35-45) mmHg ABG pO2 (83-108) mmHg ABG HCO3 (21-25) mmol/L ABG Total CO2 (19-24) mmol/L ABG O2 Saturation (94-97) % ABG Hematocrit (34.0-46.0) % ABG Potassium (3.4-4.5) mmol/L ABG Ionized Calcium (4.5-5.3) mg/dL ABG Glucose (75-99) mg/dL Hemoglobin (11.4-16.0) gm/dL Chloride (98-107) mmol/L BUN (7-17) mg/dL Glucose (74-99) mg/dL POC Glucose (mg/dL) 185 H 163 H (75-99) mg/dL Calcium (8.4-10.2) mg/dL Magnesium (1.6-2.3) mg/dL AST (14-36) U/L Alkaline Phosphatase (38-126) U/L Total Protein (6.3-8.2) g/dL Albumin (3.5-5.0) g/dL Arterial Blood Potassium (3.4-4.5) mmol/L Arterial Blood Glucose (75-99) mg/dL Crossmatch 12/26/20 12/26/20 12/26/20 Range/Units 19:04 19:54 20:46 WBC (3.8-10.6) k/uL RBC (3.80-5.40) m/uL Hgb (11.4-16.0) gm/dL Hct (34.0-46.0) % RDW (11.5-15.5) % Plt Count (150-450) k/uL Neutrophils # (1.3-7.7) k/uL Lymphocytes # (1.0-4.8) k/uL Monocytes # (0-1.0) k/uL PT (9.0-12.0) sec INR (<1.2) APTT (22.0-30.0) sec Fibrinogen (200-500) mg/dL ABG pH (7.35-7.45) ABG pCO2 (35-45) mmHg ABG pO2 (83-108) mmHg ABG HCO3 (21-25) mmol/L ABG Total CO2 (19-24) mmol/L ABG O2 Saturation (94-97) % ABG Hematocrit (34.0-46.0) % ABG Potassium (3.4-4.5) mmol/L ABG Ionized Calcium (4.5-5.3) mg/dL ABG Glucose (75-99) mg/dL Hemoglobin (11.4-16.0) gm/dL Chloride (98-107) mmol/L BUN (7-17) mg/dL Glucose (74-99) mg/dL POC Glucose (mg/dL) 136 H 114 H 106 H (75-99) mg/dL Calcium (8.4-10.2) mg/dL Magnesium (1.6-2.3) mg/dL AST (14-36) U/L Alkaline Phosphatase (38-126) U/L Total Protein (6.3-8.2) g/dL Albumin (3.5-5.0) g/dL Arterial Blood Potassium (3.4-4.5) mmol/L Arterial Blood Glucose (75-99) mg/dL Crossmatch 12/26/20 12/26/20 12/26/20 Range/Units 20:58 21:55 22:53 WBC (3.8-10.6) k/uL RBC (3.80-5.40) m/uL Hgb (11.4-16.0) gm/dL Hct (34.0-46.0) % RDW (11.5-15.5) % Plt Count (150-450) k/uL Neutrophils # (1.3-7.7) k/uL Lymphocytes # (1.0-4.8) k/uL Monocytes # (0-1.0) k/uL PT (9.0-12.0) sec INR (<1.2) APTT (22.0-30.0) sec Fibrinogen (200-500) mg/dL ABG pH (7.35-7.45) ABG pCO2 (35-45) mmHg ABG pO2 (83-108) mmHg ABG HCO3 (21-25) mmol/L ABG Total CO2 27 H (19-24) mmol/L ABG O2 Saturation 98.3 H (94-97) % ABG Hematocrit (34.0-46.0) % ABG Potassium (3.4-4.5) mmol/L ABG Ionized Calcium (4.5-5.3) mg/dL ABG Glucose (75-99) mg/dL Hemoglobin (11.4-16.0) gm/dL Chloride (98-107) mmol/L BUN (7-17) mg/dL Glucose (74-99) mg/dL POC Glucose (mg/dL) 127 H 122 H (75-99) mg/dL Calcium (8.4-10.2) mg/dL Magnesium (1.6-2.3) mg/dL AST (14-36) U/L Alkaline Phosphatase (38-126) U/L Total Protein (6.3-8.2) g/dL Albumin (3.5-5.0) g/dL Arterial Blood Potassium (3.4-4.5) mmol/L Arterial Blood Glucose (75-99) mg/dL Crossmatch 12/26/20 12/27/2012/27/21 Range/Units 23:57 00:52 01:57 WBC (3.8-10.6) k/uL RBC (3.80-5.40) m/uL Hgb (11.4-16.0) gm/dL Hct (34.0-46.0) % RDW (11.5-15.5) % Plt Count (150-450) k/uL Neutrophils # (1.3-7.7) k/uL Lymphocytes # (1.0-4.8) k/uL Monocytes # (0-1.0) k/uL PT (9.0-12.0) sec INR (<1.2) APTT (22.0-30.0) sec Fibrinogen (200-500) mg/dL ABG pH (7.35-7.45) ABG pCO2 (35-45) mmHg ABG pO2 (83-108) mmHg ABG HCO3 (21-25) mmol/L ABG Total CO2 (19-24) mmol/L ABG O2 Saturation (94-97) % ABG Hematocrit (34.0-46.0) % ABG Potassium (3.4-4.5) mmol/L ABG Ionized Calcium (4.5-5.3) mg/dL ABG Glucose (75-99) mg/dL Hemoglobin (11.4-16.0) gm/dL Chloride (98-107) mmol/L BUN (7-17) mg/dL Glucose (74-99) mg/dL POC Glucose (mg/dL) 133 H 109 H 114 H (75-99) mg/dL Calcium (8.4-10.2) mg/dL Magnesium (1.6-2.3) mg/dL AST (14-36) U/L Alkaline Phosphatase (38-126) U/L Total Protein (6.3-8.2) g/dL Albumin (3.5-5.0) g/dL Arterial Blood Potassium (3.4-4.5) mmol/L Arterial Blood Glucose (75-99) mg/dL Crossmatch 12/27/20 12/27/20 12/27/20 Range/Units 02:51 04:00 04:00 WBC 15.2 H (3.8-10.6) k/uL RBC 2.55 L (3.80-5.40) m/uL Hgb 8.0 L (11.4-16.0) gm/dL Hct 23.2 L (34.0-46.0) % RDW 17.2 H (11.5-15.5) % Plt Count (150-450) k/uL Neutrophils # 12.5 H (1.3-7.7) k/uL Lymphocytes # (1.0-4.8) k/uL Monocytes # 1.3 H (0-1.0) k/uL PT (9.0-12.0) sec INR (<1.2) APTT (22.0-30.0) sec Fibrinogen (200-500) mg/dL ABG pH (7.35-7.45) ABG pCO2 (35-45) mmHg ABG pO2 (83-108) mmHg ABG HCO3 (21-25) mmol/L ABG Total CO2 (19-24) mmol/L ABG O2 Saturation (94-97) % ABG Hematocrit (34.0-46.0) % ABG Potassium (3.4-4.5) mmol/L ABG Ionized Calcium (4.5-5.3) mg/dL ABG Glucose (75-99) mg/dL Hemoglobin (11.4-16.0) gm/dL Chloride (98-107) mmol/L BUN 19 H (7-17) mg/dL Glucose 123 H (74-99) mg/dL POC Glucose (mg/dL) 127 H (75-99) mg/dL Calcium 8.3 L (8.4-10.2) mg/dL Magnesium (1.6-2.3) mg/dL AST 67 H (14-36) U/L Alkaline Phosphatase (38-126) U/L Total Protein 4.8 L (6.3-8.2) g/dL Albumin 3.1 L (3.5-5.0) g/dL Arterial Blood Potassium (3.4-4.5) mmol/L Arterial Blood Glucose (75-99) mg/dL Crossmatch 12/27/20 12/27/20 12/27/20 Range/Units 04:05 05:16 06:52 WBC (3.8-10.6) k/uL RBC (3.80-5.40) m/uL Hgb (11.4-16.0) gm/dL Hct (34.0-46.0) % RDW (11.5-15.5) % Plt Count (150-450) k/uL Neutrophils # (1.3-7.7) k/uL Lymphocytes # (1.0-4.8) k/uL Monocytes # (0-1.0) k/uL PT (9.0-12.0) sec INR (<1.2) APTT (22.0-30.0) sec Fibrinogen (200-500) mg/dL ABG pH (7.35-7.45) ABG pCO2 (35-45) mmHg ABG pO2 (83-108) mmHg ABG HCO3 (21-25) mmol/L ABG Total CO2 (19-24) mmol/L ABG O2 Saturation (94-97) % ABG Hematocrit (34.0-46.0) % ABG Potassium (3.4-4.5) mmol/L ABG Ionized Calcium (4.5-5.3) mg/dL ABG Glucose (75-99) mg/dL Hemoglobin (11.4-16.0) gm/dL Chloride (98-107) mmol/L BUN (7-17) mg/dL Glucose (74-99) mg/dL POC Glucose (mg/dL) 141 H 139 H 131 H (75-99) mg/dL Calcium (8.4-10.2) mg/dL Magnesium (1.6-2.3) mg/dL AST (14-36) U/L Alkaline Phosphatase (38-126) U/L Total Protein (6.3-8.2) g/dL Albumin (3.5-5.0) g/dL Arterial Blood Potassium (3.4-4.5) mmol/L Arterial Blood Glucose (75-99) mg/dL Crossmatch - Imaging and Cardiology Chest x-ray: report reviewed, image reviewed Assessment and Plan Assessment: 1. Severe bicuspid aortic valve stenosis, status post aortic valve replacement with a #21 mm Jackson Inspiris bioprosthetic aortic valve 2. Single-vessel coronary artery disease, status post coronary artery bypass grafting 1 with a reverse saphenous vein graft aorta to the right coronary artery 3. History of hypertension 4. History of hyperlipidemia 5. History of hypothyroid 6. 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 Remote history of tobacco abuse 8. Preoperative elevation of her AST and ALT 9. Degenerative arthritis with chronic back pain 10. History of cancer Plan: 1. Continue aspirin, statin, Plavix, low-dose beta kiki. Will increase beta kiki as tolerated, currently on metoprolol tartrate 12.5 mg by mouth twice a day. 2. Discontinue nitroglycerin drip. 3. Wean O2 as tolerated. Encourage incentive spirometry use 10 times every hour while awake. Bronchodilators per pulmonary/critical care medicine. 4. Albumin 5% 500 mL 1 now. 5. Increase activity, ambulate as tolerated. PT/OT/cardiac rehab consulted 6. Will monitor daily labs and chest x-rays. Electrolyte replacement per protocol. No transfusions at this point. 7. GI/DVT prophylaxis 8. Pain control current when necessary orders. 9. Insulin management per primary care service. Patient is not diabetic, hemoglobin A1c 5.7% 10. Discontinue Winslow. Connect Cordis to continuous CVP monitoring 11. Will continue mediastinal, left pleural chest tubes for another 24 hours 12. Continue Acevedo for another 24 hours. Strict accurate intake and output. Daily weight 13. More recommendations to follow based on patient's progress Time with Patient: Greater than 30
[2020-12-28 09:14] LABS: Amylase <30 U/L (30-110); Lipase 91 U/L (23-300)
[2020-12-28] MEDS: METOPROLOL TARTRATE 12.5 MG TAB PO SCH (09:17)
[2020-12-28] MEDS: LACTATED RINGERS 1,000 ML IV SCH (09:19)
[2020-12-28] MEDS: CLOPIDOGREL 75 MG TAB PO SCH (09:19)
[2020-12-28] MEDS: ASPIRIN 325 MG TAB PO SCH (09:19)
--- NOTE | 2020-12-28 09:22 | P.PN ---
Subjective Progress Note Date: 12/28/20 Principal diagnosis: Severe bicuspid aortic valve stenosis, coronary artery disease. 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, right internal carotid artery stenosis 50-79% per Doppler, previous tobacco dependence with moderate obstructive lung disease and preoperative FEV1 56% of predicted, preoperative elevation of AST and ALT, degenerative arthritis with chronic back pain, and fam chato history of colon cancer POD #2 aortic valve replacement with #21 mm Jackson Inspiris bioprosthetic aortic valve, coronary artery bypass grafting 1 with reverse saphenous vein graft off the aorta to the right coronary artery, clip ligation of the left atrial appendage with a 35 mm AtriClip, intraoperative transesophageal echocardiogram. Postoperative acute blood loss anemia, expected secondary to hemodilution and cardiopulmonary bypass pump The patient was seen and examined this morning the intensive care unit. Overnight the patient became hypotensive with decreased urine output, with elevated lactic acid, increased shortness of breath, with decreased oxygenation. Through discussions with Dr. Chen and Dr. Ott the patient was placed on BiPAP, she was given multiple rounds of sodium bicarb, dopamine and Primacor were initiated, and 1 unit packed red blood cells was ordered this morning for hemoglobin 6.8. WBC 16.8, BUN 32, creatinine 1.53, INR 2.8, AST 1140, ALT 662, and most recent lactic acid 8.6, all of which are elevated from yesterday. The patient does deny any pain, states shortness of breath has improved, she is oxygenating in the mid 90s on BiPAP, blood pressure is stable, urine output has picked up. ABGs and lactic acid are improving. Urgent transthoracic echocardiogram was completed and reviewed with Dr. Gaffney. Objective - Vital Signs Vital signs: Vital Signs Temp 97.8 F 12/28/20 05:55 Pulse 75 12/28/20 07:33 Resp 16 12/28/20 07:00 BP 109/41 12/28/20 05:55 Pulse Ox 95 12/28/20 07:00 Intake & Output 12/27/20 12/28/20 12/28/20 18:59 06:59 18:59 Intake Total 5751.004 0098 46 Output Total 520 662 20 Balance 856.818 390 26 Weight 66.6 kg 67.7 kg Intake: IV 1375 1052 46 0.9 NaCl 440 40 Albumin Human 5% 250 ml 750 250 In Empty Bag 1 bag @ 250 mls/hr IVPB Q1HR PRN Rx#: [id number] CO/CI 30 Lactated Ringers 1,000 ml 470 40 @ 20 mls/hr IV .Q24H [facility] Rx#:[id number] Sodium bicarb ampule 250 ceFAZolin 2 gm In Sodium 50 Chloride 0.9% 50 ml @ 100 mls/hr IVPB Q8HR [facility] Rx# :[id number] pressure bags 75 72 6 Intake, IV Titration 1.818 Amount Insulin Regular 100 unit 1.818 In Sodium Chloride 0.9% 100 ml @ Per Protocol IV .Q0M [facility] Rx#:[id number] Blood Product 0 Rc As-1 Unit 0 [id number] Output: Chest Tube Drainage 320 380 Right Pleural/Mediastinal 320 380 Urine 200 282 20 Other: Voiding Method Indwelling Catheter Indwelling Catheter ABP, PAP, CO, CI - Last Documented Arterial Blood Pressure 112/40 Pulmonary Artery Pressure 12/5 Cardiac Output 4.2 Cardiac Index 2.6 - Exam CONSTITUTIONAL: Appears comfortable, cooperative, no acute distress RESPIRATORY: Lungs sounds diminished bilaterally. Respirations even, nonlabored. Currently on BiPAP with oxygen saturation 95%, settings 90% FiO2, 12/5. Strong cough. CARDIOVASCULAR: S1, S2 present. Regular rate and rhythm, sinus rhythm with first-degree AV block on telemetry, heart rate in the 70s. Sternum stable. Palpable peripheral pulses bilaterally. No edema present. No calf pain or tenderness noted. Heart hugger in place with patient demonstrating appropriate use. Antiembolism stockings, SCDs present. GASTROINTESTINAL: Abdomen soft, nontender, nondistended. Active bowel sounds present 4 quadrants. GENITOURINARY: Acevedo present draining clear, yellow urine. Output overnight 15-30 mL per hour INTEGUMENTARY: Skin is warm and dry with evidence of good perfusion. Anterior chest incision well approximated and covered with dry intact dressing. EVH site well approximated without redness or drainage. NEUROLOGIC: Cranial nerves II through XII intact MUSKULOSKELETAL: Able to move all extremities, strength equal bilaterally, gait normal PSYCHIATRIC: Alert and oriented to person place and time, appropriate affect, intact judgment and insight INVASIVE LINES AND TUBES: Mediastinal/right pleural chest tubes present and connected to wall suction, no air leaks present. Mediastinal/right tube with 220 mL serosanguineous drainage overnight, 850 mL in the last 24 hours. A/V epicardial pacemaker wires present, connected to generator, VVI mode with backup rate 50 bpm. Right internal jugular Cordis, right radial arterial line present. - Labs CBC & Chem 7: 12/28/20 04:00 12/28/20 04:00 Labs: Abnormal Lab Results - Last 24 Hours (Table) 12/15/20 12/27/20 12/27/20 Range/Units 14:32 08:04 09:02 WBC (3.8-10.6) k/uL RBC (3.80-5.40) m/uL Hgb (11.4-16.0) gm/dL Hct (34.0-46.0) % RDW (11.5-15.5) % Plt Count (150-450) k/uL Neutrophils # (1.3-7.7) k/uL Lymphocytes # (1.0-4.8) k/uL Monocytes # (0-1.0) k/uL PT (9.0-12.0) sec INR (<1.2) ABG pH (7.35-7.45) ABG pO2 (83-108) mmHg ABG HCO3 (21-25) mmol/L ABG Total CO2 (19-24) mmol/L ABG O2 Saturation (94-97) % ABG Lactic Acid (0.5-1.6) mmol/L Potassium (3.5-5.1) mmol/L Carbon Dioxide (22-30) mmol/L BUN (7-17) mg/dL Creatinine (0.52-1.04) mg/dL Glucose (74-99) mg/dL POC Glucose (mg/dL) 126 H 124 H (75-99) mg/dL Plasma Lactic Acid Iraj (0.7-2.0) mmol/L Calcium (8.4-10.2) mg/dL Ionized Calcium Beatrice (4.5-5.3) mg/dL Phosphorus (2.5-4.5) mg/dL Magnesium (1.6-2.3) mg/dL Total Bilirubin (0.2-1.3) mg/dL AST (14-36) U/L ALT (4-34) U/L Alkaline Phosphatase (38-126) U/L Total Protein (6.3-8.2) g/dL Crossmatch See Detail 12/27/20 12/27/20 12/27/20 Range/Units 11:11 11:51 15:06 WBC (3.8-10.6) k/uL RBC (3.80-5.40) m/uL Hgb (11.4-16.0) gm/dL Hct (34.0-46.0) % RDW (11.5-15.5) % Plt Count (150-450) k/uL Neutrophils # (1.3-7.7) k/uL Lymphocytes # (1.0-4.8) k/uL Monocytes # (0-1.0) k/uL PT (9.0-12.0) sec INR (<1.2) ABG pH (7.35-7.45) ABG pO2 (83-108) mmHg ABG HCO3 (21-25) mmol/L ABG Total CO2 (19-24) mmol/L ABG O2 Saturation (94-97) % ABG Lactic Acid (0.5-1.6) mmol/L Potassium (3.5-5.1) mmol/L Carbon Dioxide (22-30) mmol/L BUN (7-17) mg/dL Creatinine (0.52-1.04) mg/dL Glucose (74-99) mg/dL POC Glucose (mg/dL) 157 H 159 H 185 H (75-99) mg/dL Plasma Lactic Acid Iraj (0.7-2.0) mmol/L Calcium (8.4-10.2) mg/dL Ionized Calcium Beatrice (4.5-5.3) mg/dL Phosphorus (2.5-4.5) mg/dL Magnesium (1.6-2.3) mg/dL Total Bilirubin (0.2-1.3) mg/dL AST (14-36) U/L ALT (4-34) U/L Alkaline Phosphatase (38-126) U/L Total Protein (6.3-8.2) g/dL Crossmatch 12/27/20 12/27/20 12/27/20 Range/Units 16:18 18:05 18:06 WBC 18.3 H (3.8-10.6) k/uL RBC 2.34 L (3.80-5.40) m/uL Hgb 7.5 L (11.4-16.0) gm/dL Hct 21.9 L (34.0-46.0) % RDW 17.1 H (11.5-15.5) % Plt Count 140 L (150-450) k/uL Neutrophils # (1.3-7.7) k/uL Lymphocytes # (1.0-4.8) k/uL Monocytes # (0-1.0) k/uL PT (9.0-12.0) sec INR (<1.2) ABG pH (7.35-7.45) ABG pO2 (83-108) mmHg ABG HCO3 (21-25) mmol/L ABG Total CO2 (19-24) mmol/L ABG O2 Saturation (94-97) % ABG Lactic Acid (0.5-1.6) mmol/L Potassium (3.5-5.1) mmol/L Carbon Dioxide (22-30) mmol/L BUN (7-17) mg/dL Creatinine (0.52-1.04) mg/dL Glucose (74-99) mg/dL POC Glucose (mg/dL) 144 H 147 H (75-99) mg/dL Plasma Lactic Acid Iraj (0.7-2.0) mmol/L Calcium (8.4-10.2) mg/dL Ionized Calcium Beatrice (4.5-5.3) mg/dL Phosphorus (2.5-4.5) mg/dL Magnesium (1.6-2.3) mg/dL Total Bilirubin (0.2-1.3) mg/dL AST (14-36) U/L ALT (4-34) U/L Alkaline Phosphatase (38-126) U/L Total Protein (6.3-8.2) g/dL Crossmatch 12/27/20 12/27/20 12/27/20 Range/Units 18:06 18:57 20:40 WBC (3.8-10.6) k/uL RBC (3.80-5.40) m/uL Hgb (11.4-16.0) gm/dL Hct (34.0-46.0) % RDW (11.5-15.5) % Plt Count (150-450) k/uL Neutrophils # (1.3-7.7) k/uL Lymphocytes # (1.0-4.8) k/uL Monocytes # (0-1.0) k/uL PT (9.0-12.0) sec INR (<1.2) ABG pH (7.35-7.45) ABG pO2 (83-108) mmHg ABG HCO3 (21-25) mmol/L ABG Total CO2 (19-24) mmol/L ABG O2 Saturation (94-97) % ABG Lactic Acid (0.5-1.6) mmol/L Potassium 5.3 H (3.5-5.1) mmol/L Carbon Dioxide 14 L (22-30) mmol/L BUN 26 H (7-17) mg/dL Creatinine 1.40 H (0.52-1.04) mg/dL Glucose 130 H (74-99) mg/dL POC Glucose (mg/dL) 127 H 138 H (75-99) mg/dL Plasma Lactic Acid Iraj (0.7-2.0) mmol/L Calcium 8.1 L (8.4-10.2) mg/dL Ionized Calcium Beatrice (4.5-5.3) mg/dL Phosphorus 7.5 H (2.5-4.5) mg/dL Magnesium 2.4 H (1.6-2.3) mg/dL Total Bilirubin (0.2-1.3) mg/dL AST 173 H (14-36) U/L ALT 93 H (4-34) U/L Alkaline Phosphatase 29 L (38-126) U/L Total Protein 5.3 L (6.3-8.2) g/dL Crossmatch 12/27/20 12/27/20 12/27/20 Range/Units 22:13 22:16 22:20 WBC 16.2 H (3.8-10.6) k/uL RBC 2.38 L (3.80-5.40) m/uL Hgb 7.4 L (11.4-16.0) gm/dL Hct 22.3 L (34.0-46.0) % RDW 17.1 H (11.5-15.5) % Plt Count 141 L (150-450) k/uL Neutrophils # 14.2 H (1.3-7.7) k/uL Lymphocytes # 0.7 L (1.0-4.8) k/uL Monocytes # (0-1.0) k/uL PT (9.0-12.0) sec INR (<1.2) ABG pH 7.23 L (7.35-7.45) ABG pO2 74 L (83-108) mmHg ABG HCO3 15 L (21-25) mmol/L ABG Total CO2 16 L (19-24) mmol/L ABG O2 Saturation 93.0 L (94-97) % ABG Lactic Acid (0.5-1.6) mmol/L Potassium (3.5-5.1) mmol/L Carbon Dioxide (22-30) mmol/L BUN (7-17) mg/dL Creatinine (0.52-1.04) mg/dL Glucose (74-99) mg/dL POC Glucose (mg/dL) 140 H (75-99) mg/dL Plasma Lactic Acid Iraj (0.7-2.0) mmol/L Calcium (8.4-10.2) mg/dL Ionized Calcium Beatrice (4.5-5.3) mg/dL Phosphorus (2.5-4.5) mg/dL Magnesium (1.6-2.3) mg/dL Total Bilirubin (0.2-1.3) mg/dL AST (14-36) U/L ALT (4-34) U/L Alkaline Phosphatase (38-126) U/L Total Protein (6.3-8.2) g/dL Crossmatch 12/27/20 12/27/20 12/27/20 Range/Units 22:20 22:45 23:43 WBC (3.8-10.6) k/uL RBC (3.80-5.40) m/uL Hgb (11.4-16.0) gm/dL Hct (34.0-46.0) % RDW (11.5-15.5) % Plt Count (150-450) k/uL Neutrophils # (1.3-7.7) k/uL Lymphocytes # (1.0-4.8) k/uL Monocytes # (0-1.0) k/uL PT (9.0-12.0) sec INR (<1.2) ABG pH 7.32 L (7.35-7.45) ABG pO2 78 L (83-108) mmHg ABG HCO3 18 L (21-25) mmol/L ABG Total CO2 (19-24) mmol/L ABG O2 Saturation (94-97) % ABG Lactic Acid 7.6 H* (0.5-1.6) mmol/L Potassium 5.5 H (3.5-5.1) mmol/L Carbon Dioxide 16 L (22-30) mmol/L BUN 29 H (7-17) mg/dL Creatinine 1.60 H (0.52-1.04) mg/dL Glucose 125 H (74-99) mg/dL POC Glucose (mg/dL) (75-99) mg/dL Plasma Lactic Acid Iraj (0.7-2.0) mmol/L Calcium 8.3 L (8.4-10.2) mg/dL Ionized Calcium Beatrice (4.5-5.3) mg/dL Phosphorus (2.5-4.5) mg/dL Magnesium (1.6-2.3) mg/dL Total Bilirubin 1.6 H (0.2-1.3) mg/dL AST 411 H (14-36) U/L ALT 214 H (4-34) U/L Alkaline Phosphatase 28 L (38-126) U/L Total Protein 5.4 L (6.3-8.2) g/dL Crossmatch 12/28/20 12/28/20 12/28/20 Range/Units 00:24 00:58 01:49 WBC (3.8-10.6) k/uL RBC (3.80-5.40) m/uL Hgb (11.4-16.0) gm/dL Hct (34.0-46.0) % RDW (11.5-15.5) % Plt Count (150-450) k/uL Neutrophils # (1.3-7.7) k/uL Lymphocytes # (1.0-4.8) k/uL Monocytes # (0-1.0) k/uL PT (9.0-12.0) sec INR (<1.2) ABG pH (7.35-7.45) ABG pO2 (83-108) mmHg ABG HCO3 (21-25) mmol/L ABG Total CO2 (19-24) mmol/L ABG O2 Saturation (94-97) % ABG Lactic Acid (0.5-1.6) mmol/L Potassium (3.5-5.1) mmol/L Carbon Dioxide (22-30) mmol/L BUN (7-17) mg/dL Creatinine (0.52-1.04) mg/dL Glucose (74-99) mg/dL POC Glucose (mg/dL) 151 H 146 H 144 H (75-99) mg/dL Plasma Lactic Acid Iraj (0.7-2.0) mmol/L Calcium (8.4-10.2) mg/dL Ionized Calcium Beatrice (4.5-5.3) mg/dL Phosphorus (2.5-4.5) mg/dL Magnesium (1.6-2.3) mg/dL Total Bilirubin (0.2-1.3) mg/dL AST (14-36) U/L ALT (4-34) U/L Alkaline Phosphatase (38-126) U/L Total Protein (6.3-8.2) g/dL Crossmatch 12/28/20 12/28/20 12/28/20 Range/Units 01:55 01:58 03:46 WBC (3.8-10.6) k/uL RBC (3.80-5.40) m/uL Hgb (11.4-16.0) gm/dL Hct (34.0-46.0) % RDW (11.5-15.5) % Plt Count (150-450) k/uL Neutrophils # (1.3-7.7) k/uL Lymphocytes # (1.0-4.8) k/uL Monocytes # (0-1.0) k/uL PT (9.0-12.0) sec INR (<1.2) ABG pH 7.34 L (7.35-7.45) ABG pO2 64 L 71 L (83-108) mmHg ABG HCO3 20 L (21-25) mmol/L ABG Total CO2 (19-24) mmol/L ABG O2 Saturation 90.0 L 93.0 L (94-97) % ABG Lactic Acid (0.5-1.6) mmol/L Potassium (3.5-5.1) mmol/L Carbon Dioxide (22-30) mmol/L BUN (7-17) mg/dL Creatinine (0.52-1.04) mg/dL Glucose (74-99) mg/dL POC Glucose (mg/dL) (75-99) mg/dL Plasma Lactic Acid Iraj 9.7 H* (0.7-2.0) mmol/L Calcium (8.4-10.2) mg/dL Ionized Calcium Beatrice (4.5-5.3) mg/dL Phosphorus (2.5-4.5) mg/dL Magnesium (1.6-2.3) mg/dL Total Bilirubin (0.2-1.3) mg/dL AST (14-36) U/L ALT (4-34) U/L Alkaline Phosphatase (38-126) U/L Total Protein (6.3-8.2) g/dL Crossmatch 12/28/20 12/28/20 12/28/20 Range/Units 04:00 04:00 04:00 WBC 16.8 H (3.8-10.6) k/uL RBC 2.19 L (3.80-5.40) m/uL Hgb 6.8 L* (11.4-16.0) gm/dL Hct 20.1 L (34.0-46.0) % RDW 17.3 H (11.5-15.5) % Plt Count 136 L (150-450) k/uL Neutrophils # 14.4 H (1.3-7.7) k/uL Lymphocytes # 0.9 L (1.0-4.8) k/uL Monocytes # 1.2 H (0-1.0) k/uL PT (9.0-12.0) sec INR (<1.2) ABG pH (7.35-7.45) ABG pO2 (83-108) mmHg ABG HCO3 (21-25) mmol/L ABG Total CO2 (19-24) mmol/L ABG O2 Saturation (94-97) % ABG Lactic Acid 8.6 H* (0.5-1.6) mmol/L Potassium (3.5-5.1) mmol/L Carbon Dioxide (22-30) mmol/L BUN 32 H (7-17) mg/dL Creatinine 1.53 H (0.52-1.04) mg/dL Glucose 138 H (74-99) mg/dL POC Glucose (mg/dL) (75-99) mg/dL Plasma Lactic Acid Iraj (0.7-2.0) mmol/L Calcium 8.0 L (8.4-10.2) mg/dL Ionized Calcium Beatrice 4.2 L (4.5-5.3) mg/dL Phosphorus (2.5-4.5) mg/dL Magnesium (1.6-2.3) mg/dL Total Bilirubin 1.9 H (0.2-1.3) mg/dL AST 1140 H (14-36) U/L ALT 662 H (4-34) U/L Alkaline Phosphatase 30 L (38-126) U/L Total Protein 5.0 L (6.3-8.2) g/dL Crossmatch 12/28/20 12/28/20 12/28/20 Range/Units 04:06 04:25 05:01 WBC (3.8-10.6) k/uL RBC (3.80-5.40) m/uL Hgb (11.4-16.0) gm/dL Hct (34.0-46.0) % RDW (11.5-15.5) % Plt Count (150-450) k/uL Neutrophils # (1.3-7.7) k/uL Lymphocytes # (1.0-4.8) k/uL Monocytes # (0-1.0) k/uL PT (9.0-12.0) sec INR (<1.2) ABG pH (7.35-7.45) ABG pO2 (83-108) mmHg ABG HCO3 (21-25) mmol/L ABG Total CO2 (19-24) mmol/L ABG O2 Saturation (94-97) % ABG Lactic Acid (0.5-1.6) mmol/L Potassium (3.5-5.1) mmol/L Carbon Dioxide (22-30) mmol/L BUN (7-17) mg/dL Creatinine (0.52-1.04) mg/dL Glucose (74-99) mg/dL POC Glucose (mg/dL) 154 H 155 H (75-99) mg/dL Plasma Lactic Acid Iraj (0.7-2.0) mmol/L Calcium (8.4-10.2) mg/dL Ionized Calcium Beatrice (4.5-5.3) mg/dL Phosphorus (2.5-4.5) mg/dL Magnesium (1.6-2.3) mg/dL Total Bilirubin (0.2-1.3) mg/dL AST (14-36) U/L ALT (4-34) U/L Alkaline Phosphatase (38-126) U/L Total Protein (6.3-8.2) g/dL Crossmatch See Detail 12/28/20 12/28/20 12/28/20 Range/Units 06:07 06:55 06:56 WBC (3.8-10.6) k/uL RBC (3.80-5.40) m/uL Hgb (11.4-16.0) gm/dL Hct (34.0-46.0) % RDW (11.5-15.5) % Plt Count (150-450) k/uL Neutrophils # (1.3-7.7) k/uL Lymphocytes # (1.0-4.8) k/uL Monocytes # (0-1.0) k/uL PT 27.0 H (9.0-12.0) sec INR 2.8 H (<1.2) ABG pH (7.35-7.45) ABG pO2 (83-108) mmHg ABG HCO3 (21-25) mmol/L ABG Total CO2 (19-24) mmol/L ABG O2 Saturation (94-97) % ABG Lactic Acid (0.5-1.6) mmol/L Potassium (3.5-5.1) mmol/L Carbon Dioxide (22-30) mmol/L BUN (7-17) mg/dL Creatinine (0.52-1.04) mg/dL Glucose (74-99) mg/dL POC Glucose (mg/dL) 157 H 174 H (75-99) mg/dL Plasma Lactic Acid Iraj (0.7-2.0) mmol/L Calcium (8.4-10.2) mg/dL Ionized Calcium Beatrice (4.5-5.3) mg/dL Phosphorus (2.5-4.5) mg/dL Magnesium (1.6-2.3) mg/dL Total Bilirubin (0.2-1.3) mg/dL AST (14-36) U/L ALT (4-34) U/L Alkaline Phosphatase (38-126) U/L Total Protein (6.3-8.2) g/dL Crossmatch Assessment and Plan Assessment: 1. Severe bicuspid aortic valve stenosis, status post aortic valve replacement with #21 mm Jackson Inspiris bioprosthetic aortic valve 2. Coronary artery disease, status post single vessel CABG 3. History of hypertension, currently hypotensive on dopamine 4. Hyperlipidemia, treated, cholesterol 111, LDL 38 5. Hypothyroid 6. 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 Right internal carotid artery stenosis 50-79% per Doppler 8. Previous tobacco dependence with moderate obstructive lung disease and preoperative FEV1 56% of predicted 9. Preoperative elevation of AST and ALT with transaminitis postoperatively, l ikely from hypotension 10. Degenerative arthritis with chronic back pain 11. Family history of colon cancer 12. Postoperative acute blood loss anemia, expected secondary to hemodilution and cardiopulmonary bypass pump 13. Lactic acidosis, likely from hypotension Plan: 1. Continue aspirin, statin, Plavix, low-dose beta kiki. 2. Continue IV dopamine, Primacor for now 3. Wean from BiPAP as tolerated, management per j2ee android developer. Bronchodilators per j2ee android developer 4. Will continue to monitor ABGs, lactic acid 5. Increase activity as tolerated. PT/OT/cardiac rehab consulted 6. Will monitor daily labs and chest x-rays. Electrolyte replacement per protocol, will give IV calcium. Repeat CBC 2 hours post transfusion 7. GI/DVT prophylaxis 8. Pain control current per current medication regimen 9. Insulin management per primary care service. Patient is not diabetic, hemoglobin A1c 5.7% 10. Will check amylase, lipase 11. Will continue mediastinal, left pleural chest tubes for another 24 hours 12. Continue Acevedo for another 24 hours. Strict accurate intake and output. Daily weight 13. More recommendations to follow based on patient's progress Time with Patient: Greater than 30
[2020-12-28 09:24] LABS: Glucose,Whole Blood 172 mg/dL (75-99)
[2020-12-28 09:56] LABS: Anisocytosis Slight; HCT 23.4 % (34.0-46.0); HGB 8.1 gm/dL (11.4-16.0); MCH 31.4 pg (25.0-35.0); MCHC 34.6 g/dL (31.0-37.0); MCV 90.6 fL (80.0-100.0); Mean Platelet Volume 9.2; Platelet Count 124 k/uL (150-450); RBC 2.58 m/uL (3.80-5.40); RDW 16.2 % (11.5-15.5); WBC 18.7 k/uL (3.8-10.6)
[2020-12-28 10:13] LABS: Glucose,Whole Blood 171 mg/dL (75-99)
--- NOTE | 2020-12-28 10:24 | ECHOF ---
Referral Reason:Heart failure MEASUREMENTS -------- HEIGHT: 162.6 cm WEIGHT: 67.6 kg BP: 109/41 RVIDd: 3.6 cm (< 3.3) IVSd: 1.6 cm (0.6 - 1.1) LVIDd: 3.0 cm (3.9 - 5.3) LVPWd: 1.4 cm (0.6 - 1.1) IVSs: 1.8 cm LVIDs: 1.8 cm LVPWs: 1.4 cm LA Diam: 4.0 cm (2.7 - 3.8) LAESV Index (A-L): 26.31 ml/m Ao Diam: 3.0 cm (2.0 - 3.7) AV Cusp: 1.6 cm (1.5 - 2.6) MV EXCURSION: 14.230 mm (> 18.000) MV EF SLOPE: 39 mm/s (70 - 150) EPSS: 0.4 cm MV E Truman: 1.20 m/s MV DecT: 204 ms MV A Truman: 0.86 m/s MV E/A Ratio: 1.39 AV maxP.10 mmHg AV meanP.16 mmHg AR PHT: 646 ms RAP: 15.00 mmHg RVSP: 48.19 mmHg FINDINGS -------- Sinus rhythm. This was a technically good study. The left ventricular size is normal. There is moderate concentric left ventricular hypertrophy. L eft ventricular systolic function is hyperdynamic with an estimated EF of >70%. The right ventricle is mildly enlarged. Normal LA size by volume 22+/-6 ml/m2. The right atrium is normal in size. Interatrial and interventricular septum intact. Peak/mean gradient across the Aortic Valve is 37.10mmHg / 16.16mmHg. There is mild regurgitation of the bioprosthetic aortic valve. The mitral valve leaflets are mildly thickened. Mild mitral annular calcification present. Mild m itral regurgitation is present. Moderate tricuspid regurgitation present. There is moderate pulmonary hypertension. The right quynh tricular systolic pressure, as measured by Doppler, is 48.19mmHg. Trace/mild (physiologic) pulmonic regurgitation. The aortic root size is normal. Normal inferior vena cava with less than 50% inspiratory collapse consistent with estimated right atr ial pressure of 15 mmHg. There is no pericardial effusion. CONCLUSIONS -------- 1. The left ventricular size is normal. 2. There is moderate concentric left ventricular hypertrophy. 3. Left ventricular systolic function is hyperdynamic with an estimated EF of >70%. 4. The right ventricle is mildly enlarged. 5. Peak/mean gradient across the Aortic Valve is 37.10mmHg / 16.16mmHg. 6. There is mild regurgitation of the bioprosthetic aortic valve. 7. The mitral valve leaflets are mildly thickened. 8. Mild mitral annular calcification present. 9. Mild mitral regurgitation is present. 10. Moderate tricuspid regurgitation present. 11. There is moderate pulmonary hypertension. 12. The right ventricular systolic pressure, as measured by Doppler, is 48.19mmHg. 13. Trace/mild (physiologic) pulmonic regurgitation. 14. Normal inferior vena cava with less than 50% inspiratory collapse consistent with estimated right atrial pressure of 15 mmHg. 15. There is no pericardial effusion. LITHOGRAPHIC ARTIST: Millicent Mathew RDCS
[2020-12-28 10:30] LABS: ABG Base Excess -1.4 mmol/L; ABG HCO3 24 mmol/L (21-25); ABG Oxygen Saturation 93.4 % (94-97); ABG PCO2 41 mmHg (35-45); ABG PH 7.38 (7.35-7.45); ABG PO2 70 mmHg (83-108); ABG TCO2 25 mmol/L (19-24)
[2020-12-28 10:32] LABS: Allen Test Performed? no
--- NOTE | 2020-12-28 10:55 | P.PN ---
Subjective Progress Note Date: 12/28/20 HISTORY OF PRESENT ILLNESS This is a 65-year-old female patient of Dr. 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 Patient underwent echocardiogram that revealed an ejection fraction of 55-60% with LVH, mild to moderate MR, bicuspid severely calcified aortic valve with moderate aortic regurgitation, moderate tricuspid regurgitation. The patient underwent cardiac julián terizationTEE for further evaluation. The cath showed right coronary artery stenosis in the order of 85% without any significant coronary artery disease. The transthoracic echocardiogram showed severe aortic stenosis. Patient underwent aortic valve replacement and one-vessel CABG with reverse saphenous vein graft off the aorta to the right coronary artery. Patient was admitted into the intensive care unit and was successfully extubated. She is seen today in the intensive care unit. She is up in a recliner. Villas-Kelli in place, mediastinal and right-sided chest tubes in place, Acevedo catheter in place. Patient denies having any chest pain. She states she is not feeling too bad today. She has a little nausea. No abdominal pain. She states she slept okay last night. She has been afebrile, heart rate 71, blood pressure 119/52, pulse ox 90% on 5 L nasal cannula. Blood work this morning reveals W BC 15.2, hemoglobin 8, platelet count 168. Electrolytes normal, BUN 19 and creatinine 0.78. Blood sugars running between 124 and 141. AST 167. Chest x-ray reveals small residual right apical pneumothorax may be present. Chest tubes pulled back slightly from comparison. Villas-Kelli catheter is somewhat peripheral and the right main pulmonary artery region. Cardiomegaly. Small left pleural effusion. 12/28: Patient remains in the intensive care unit. Patient has become hypoten sive with low urine output, elevated lactic acid, anemia, liver enzyme elevation and generalized anasarca. Patient is been started on dopamine, Primacor and is status post albumin and is status post 1 unit packed RBCs this morning. Urine output is improving. She is on BiPAP. Patient complains of generalized not feeling well and shortness of breath. Repeat CXR reports slight increase in mild left hilar and left basilar edema and/or atelectasis. Small pleural effusion. WBC 18.7, hemoglobin initially 6.8 and repeat a 0.1. Platelet count 124. INR 2.8. Electrolytes normal. BUN 32 and creatinine 1.53. Blood sugars running in the 140-170s. Total bilirubin 1.9, AST 1140, ALT 662, alkaline phosphatase 30. Amylase and lipase normal. REVIEW OF SYSTEMS Constitutional: No fever, no chills, no night sweats. No weight change. Reports weakness, reports fatigue reports lethargy. No daytime sleepiness. EENT: No headache. No change in vision, no loss of vision. No loss of Hearing, no dizziness. No nasal drainage or congestion. No epistaxis. No sore throat. Lungs: Reports shortness of breath, cough, no sputum production. No wheezing. Cardiovascular: No chest pain, reports lower extremity edema. Reports generalized edema. No palpitations. No paroxysmal nocturnal dyspnea. No orthopnea. No lightheadedness or dizziness. No syncopal episodes. Abdominal: No abdominal pain. Reports nausea, vomiting. No diarrhea. No constipation. No bloody or tarry stools.. No loss of appetite. Genitourinary: No dysuria, increased frequency, urgency. No urinary retention. Musculoskeletal: No myalgias. Reports muscle weakness, no gait dysfunction, no frequent falls. No back pain. No neck pain. Integumentary: No wounds, no lesions. No rash or pruritus. Neurologic: No aphasia. No facial droop. No change in mentation. No head injury. No headache. No paralysis. No paresthesia. Psychiatric: No depression. No anxiety. Endocrine: Reports abnormal blood sugars. PHYSICAL EXAMINATION Gen: This paradise 65-year-old female. She is resting in ICU bed, currently on BiPAP HEENT: Head is atraumatic, normocephalic. Pupils equal, round. Sclerae is anicteric. NECK: Supple. No JVD. No lymphadenopathy. No thyromegaly. Right-sided Cordis in place. LUNGS: Clear to auscultation. No wheezes or rhonchi. No intercostal r etractions. Right pleural and mediastinal chest tubes in place. HEART: Regular rate and rhythm. No murmur. ABDOMEN: Soft. Bowel sounds are present. No masses. No tenderness. Acevedo catheter in place. EXTREMITIES: Mild generalized pedal edema. No calf tenderness. Dorsalis pedis palpable bilaterally. NEUROLOGICAL: Patient is awake, alert and oriented x3. Cranial nerves 2 through 12 are grossly intact. ASSESSMENT AND PLAN 1. Aortic valve replacement for bicuspid valve with moderate aortic regurgitation and single-vessel CABG with CVG to RCA. Patient is postop day #2. She has been successfully extubated. Patient is not requiring vasopressors. Continue current management per cardiothoracic surgery. Patient is currently on aspirin 325 mg daily, Lipitor 40 mg daily, Plavix 75 mg daily, Lopressor 12.5 mg twice daily. 2. Rule out cardiogenic shock. Patient's been started on dopamine and Primacor. Status post albumin IV. 3. Transaminitis secondary to hypoperfusion. Continue to monitor liver function tests and INR. 4. Acute blood loss anemia, expected following surgery. Patient is transfuse 1 unit packed RBCs today. 5. Lactic acidosis secondary to hyperperfusion, improving. 6. Hypertension. Patient is currently hypotensive. 7. Hyperlipidemia. Continue Lipitor 40 mg daily. 8. History of CVA 2. Continue Lipitor for secondary prevention. 9. Hypothyroidism. Continue levothyroxine 25 g daily. 10. Recurrent depression. Continue Zoloft 25 mg at bedtime. 11. Degenerative disc disease. Patient is on baclofen. 12. GI prophylaxis. Protonix. 13. DVT prophylaxis. Heparin subcu. DISCHARGE PLAN Most likely home with homecare. Impression and plan of care have been directed as dictated by the signing physician. Donna Gutierrez nurse practitioner acting as scribe for signing physician. Objective - Vital Signs Vital signs: Vital Signs Temp 97.7 F 12/28/20 08:00 Pulse 76 12/28/20 08:00 Resp 24 12/28/20 08:00 BP 105/46 12/28/20 08:00 Pulse Ox 97 12/28/20 08:00 Intake & Output 12/27/20 12/28/20 12/28/20 18:59 06:59 18:59 Intake Total 1229.347 4617 356 Output Total 520 662 20 Balance 856.818 390 336 Weight 66.6 kg 67.7 kg Intake: IV 1375 1052 46 0.9 NaCl 440 40 Albumin Human 5% 250 ml 750 250 In Empty Bag 1 bag @ 250 mls/hr IVPB Q1HR PRN Rx#: [id number] CO/CI 30 Lactated Ringers 1,000 ml 470 40 @ 20 mls/hr IV .Q24H KOBI Rx#:[id number] Sodium bicarb ampule 250 ceFAZolin 2 gm In Sodium 50 Chloride 0.9% 50 ml @ 100 mls/hr IVPB Q8HR KOBI Rx# :[id number] pressure bags 75 72 6 Intake, IV Titration 1.818 Amount Insulin Regular 100 unit 1.818 In Sodium Chloride 0.9% 100 ml @ Per Protocol IV .Q0M KOBI Rx#:[id number] Blood Product 0 310 Rc As-1 Unit 0 310 [id number] Output: Chest Tube Drainage 320 380 Right Pleural/Mediastinal 320 380 Urine 200 282 20 Other: Voiding Method Indwelling Catheter Indwelling Catheter ABP, PAP, CO, CI - Last Documented Arterial Blood Pressure 115/41 Pulmonary Artery Pressure 12/5 Cardiac Output 4.2 Cardiac Index 2.6 - Labs CBC & Chem 7: 12/28/20 09:40 12/28/20 04:00 Labs: Abnormal Lab Results - Last 24 Hours (Table) 12/15/20 12/27/20 12/27/20 Range/Units 14:32 11:11 11:51 WBC (3.8-10.6) k/uL RBC (3.80-5.40) m/uL Hgb (11.4-16.0) gm/dL Hct (34.0-46.0) % RDW (11.5-15.5) % Plt Count (150-450) k/uL Neutrophils # (1.3-7.7) k/uL Lymphocytes # (1.0-4.8) k/uL Monocytes # (0-1.0) k/uL PT (9.0-12.0) sec INR (<1.2) ABG pH (7.35-7.45) ABG pO2 (83-108) mmHg ABG HCO3 (21-25) mmol/L ABG Total CO2 (19-24) mmol/L ABG O2 Saturation (94-97) % ABG Lactic Acid (0.5-1.6) mmol/L Potassium (3.5-5.1) mmol/L Carbon Dioxide (22-30) mmol/L BUN (7-17) mg/dL Creatinine (0.52-1.04) mg/dL Glucose (74-99) mg/dL POC Glucose (mg/dL) 157 H 159 H (75-99) mg/dL Plasma Lactic Acid Iraj (0.7-2.0) mmol/L Calcium (8.4-10.2) mg/dL Ionized Calcium Beatrice (4.5-5.3) mg/dL Phosphorus (2.5-4.5) mg/dL Magnesium (1.6-2.3) mg/dL Total Bilirubin (0.2-1.3) mg/dL AST (14-36) U/L ALT (4-34) U/L Alkaline Phosphatase (38-126) U/L Total Protein (6.3-8.2) g/dL Amylase (30-110) U/L Crossmatch See Detail 12/27/20 12/27/20 12/27/20 Range/Units 15:06 16:18 18:05 WBC (3.8-10.6) k/uL RBC (3.80-5.40) m/uL Hgb (11.4-16.0) gm/dL Hct (34.0-46.0) % RDW (11.5-15.5) % Plt Count (150-450) k/uL Neutrophils # (1.3-7.7) k/uL Lymphocytes # (1.0-4.8) k/uL Monocytes # (0-1.0) k/uL PT (9.0-12.0) sec INR (<1.2) ABG pH (7.35-7.45) ABG pO2 (83-108) mmHg ABG HCO3 (21-25) mmol/L ABG Total CO2 (19-24) mmol/L ABG O2 Saturation (94-97) % ABG Lactic Acid (0.5-1.6) mmol/L Potassium (3.5-5.1) mmol/L Carbon Dioxide (22-30) mmol/L BUN (7-17) mg/dL Creatinine (0.52-1.04) mg/dL Glucose (74-99) mg/dL POC Glucose (mg/dL) 185 H 144 H 147 H (75-99) mg/dL Plasma Lactic Acid Iraj (0.7-2.0) mmol/L Calcium (8.4-10.2) mg/dL Ionized Calcium Beatrice (4.5-5.3) mg/dL Phosphorus (2.5-4.5) mg/dL Magnesium (1.6-2.3) mg/dL Total Bilirubin (0.2-1.3) mg/dL AST (14-36) U/L ALT (4-34) U/L Alkaline Phosphatase (38-126) U/L Total Protein (6.3-8.2) g/dL Amylase (30-110) U/L Crossmatch 12/27/20 12/27/20 12/27/20 Range/Units 18:06 18:06 18:57 WBC 18.3 H (3.8-10.6) k/uL RBC 2.34 L (3.80-5.40) m/uL Hgb 7.5 L (11.4-16.0) gm/dL Hct 21.9 L (34.0-46.0) % RDW 17.1 H (11.5-15.5) % Plt Count 140 L (150-450) k/uL Neutrophils # (1.3-7.7) k/uL Lymphocytes # (1.0-4.8) k/uL Monocytes # (0-1.0) k/uL PT (9.0-12.0) sec INR (<1.2) ABG pH (7.35-7.45) ABG pO2 (83-108) mmHg ABG HCO3 (21-25) mmol/L ABG Total CO2 (19-24) mmol/L ABG O2 Saturation (94-97) % ABG Lactic Acid (0.5-1.6) mmol/L Potassium 5.3 H (3.5-5.1) mmol/L Carbon Dioxide 14 L (22-30) mmol/L BUN 26 H (7-17) mg/dL Creatinine 1.40 H (0.52-1.04) mg/dL Glucose 130 H (74-99) mg/dL POC Glucose (mg/dL) 127 H (75-99) mg/dL Plasma Lactic Acid Iraj (0.7-2.0) mmol/L Calcium 8.1 L (8.4-10.2) mg/dL Ionized Calcium Beatrice (4.5-5.3) mg/dL Phosphorus 7.5 H (2.5-4.5) mg/dL Magnesium 2.4 H (1.6-2.3) mg/dL Total Bilirubin (0.2-1.3) mg/dL AST 173 H (14-36) U/L ALT 93 H (4-34) U/L Alkaline Phosphatase 29 L (38-126) U/L Total Protein 5.3 L (6.3-8.2) g/dL Amylase (30-110) U/L Crossmatch 12/27/20 12/27/20 12/27/20 Range/Units 20:40 22:13 22:16 WBC (3.8-10.6) k/uL RBC (3.80-5.40) m/uL Hgb (11.4-16.0) gm/dL Hct (34.0-46.0) % RDW (11.5-15.5) % Plt Count (150-450) k/uL Neutrophils # (1.3-7.7) k/uL Lymphocytes # (1.0-4.8) k/uL Monocytes # (0-1.0) k/uL PT (9.0-12.0) sec INR (<1.2) ABG pH 7.23 L (7.35-7.45) ABG pO2 74 L (83-108) mmHg ABG HCO3 15 L (21-25) mmol/L ABG Total CO2 16 L (19-24) mmol/L ABG O2 Saturation 93.0 L (94-97) % ABG Lactic Acid (0.5-1.6) mmol/L Potassium (3.5-5.1) mmol/L Carbon Dioxide (22-30) mmol/L BUN (7-17) mg/dL Creatinine (0.52-1.04) mg/dL Glucose (74-99) mg/dL POC Glucose (mg/dL) 138 H 140 H (75-99) mg/dL Plasma Lactic Acid Iraj (0.7-2.0) mmol/L Calcium (8.4-10.2) mg/dL Ionized Calcium Beatrice (4.5-5.3) mg/dL Phosphorus (2.5-4.5) mg/dL Magnesium (1.6-2.3) mg/dL Total Bilirubin (0.2-1.3) mg/dL AST (14-36) U/L ALT (4-34) U/L Alkaline Phosphatase (38-126) U/L Total Protein (6.3-8.2) g/dL Amylase (30-110) U/L Crossmatch 12/27/20 12/27/20 12/27/20 Range/Units 22:20 22:20 22:45 WBC 16.2 H (3.8-10.6) k/uL RBC 2.38 L (3.80-5.40) m/uL Hgb 7.4 L (11.4-16.0) gm/dL Hct 22.3 L (34.0-46.0) % RDW 17.1 H (11.5-15.5) % Plt Count 141 L (150-450) k/uL Neutrophils # 14.2 H (1.3-7.7) k/uL Lymphocytes # 0.7 L (1.0-4.8) k/uL Monocytes # (0-1.0) k/uL PT (9.0-12.0) sec INR (<1.2) ABG pH (7.35-7.45) ABG pO2 (83-108) mmHg ABG HCO3 (21-25) mmol/L ABG Total CO2 (19-24) mmol/L ABG O2 Saturation (94-97) % ABG Lactic Acid 7.6 H* (0.5-1.6) mmol/L Potassium 5.5 H (3.5-5.1) mmol/L Carbon Dioxide 16 L (22-30) mmol/L BUN 29 H (7-17) mg/dL Creatinine 1.60 H (0.52-1.04) mg/dL Glucose 125 H (74-99) mg/dL POC Glucose (mg/dL) (75-99) mg/dL Plasma Lactic Acid Iraj (0.7-2.0) mmol/L Calcium 8.3 L (8.4-10.2) mg/dL Ionized Calcium Beatrice (4.5-5.3) mg/dL Phosphorus (2.5-4.5) mg/dL Magnesium (1.6-2.3) mg/dL Total Bilirubin 1.6 H (0.2-1.3) mg/dL AST 411 H (14-36) U/L ALT 214 H (4-34) U/L Alkaline Phosphatase 28 L (38-126) U/L Total Protein 5.4 L (6.3-8.2) g/dL Amylase (30-110) U/L Crossmatch 12/27/20 12/28/20 12/28/20 Range/Units 23:43 00:24 00:58 WBC (3.8-10.6) k/uL RBC (3.80-5.40) m/uL Hgb (11.4-16.0) gm/dL Hct (34.0-46.0) % RDW (11.5-15.5) % Plt Count (150-450) k/uL Neutrophils # (1.3-7.7) k/uL Lymphocytes # (1.0-4.8) k/uL Monocytes # (0-1.0) k/uL PT (9.0-12.0) sec INR (<1.2) ABG pH 7.32 L (7.35-7.45) ABG pO2 78 L (83-108) mmHg ABG HCO3 18 L (21-25) mmol/L ABG Total CO2 (19-24) mmol/L ABG O2 Saturation (94-97) % ABG Lactic Acid (0.5-1.6) mmol/L Potassium (3.5-5.1) mmol/L Carbon Dioxide (22-30) mmol/L BUN (7-17) mg/dL Creatinine (0.52-1.04) mg/dL Glucose (74-99) mg/dL POC Glucose (mg/dL) 151 H 146 H (75-99) mg/dL Plasma Lactic Acid Iraj (0.7-2.0) mmol/L Calcium (8.4-10.2) mg/dL Ionized Calcium Beatrice (4.5-5.3) mg/dL Phosphorus (2.5-4.5) mg/dL Magnesium (1.6-2.3) mg/dL Total Bilirubin (0.2-1.3) mg/dL AST (14-36) U/L ALT (4-34) U/L Alkaline Phosphatase (38-126) U/L Total Protein (6.3-8.2) g/dL Amylase (30-110) U/L Crossmatch 12/28/20 12/28/20 12/28/20 Range/Units 01:49 01:55 01:58 WBC (3.8-10.6) k/uL RBC (3.80-5.40) m/uL Hgb (11.4-16.0) gm/dL Hct (34.0-46.0) % RDW (11.5-15.5) % Plt Count (150-450) k/uL Neutrophils # (1.3-7.7) k/uL Lymphocytes # (1.0-4.8) k/uL Monocytes # (0-1.0) k/uL PT (9.0-12.0) sec INR (<1.2) ABG pH 7.34 L (7.35-7.45) ABG pO2 64 L (83-108) mmHg ABG HCO3 20 L (21-25) mmol/L ABG Total CO2 (19-24) mmol/L ABG O2 Saturation 90.0 L (94-97) % ABG Lactic Acid (0.5-1.6) mmol/L Potassium (3.5-5.1) mmol/L Carbon Dioxide (22-30) mmol/L BUN (7-17) mg/dL Creatinine (0.52-1.04) mg/dL Glucose (74-99) mg/dL POC Glucose (mg/dL) 144 H (75-99) mg/dL Plasma Lactic Acid Iraj 9.7 H* (0.7-2.0) mmol/L Calcium (8.4-10.2) mg/dL Ionized Calcium Beatrice (4.5-5.3) mg/dL Phosphorus (2.5-4.5) mg/dL Magnesium (1.6-2.3) mg/dL Total Bilirubin (0.2-1.3) mg/dL AST (14-36) U/L ALT (4-34) U/L Alkaline Phosphatase (38-126) U/L Total Protein (6.3-8.2) g/dL Amylase (30-110) U/L Crossmatch 12/28/20 12/28/20 12/28/20 Range/Units 03:46 04:00 04:00 WBC 16.8 H (3.8-10.6) k/uL RBC 2.19 L (3.80-5.40) m/uL Hgb 6.8 L* (11.4-16.0) gm/dL Hct 20.1 L (34.0-46.0) % RDW 17.3 H (11.5-15.5) % Plt Count 136 L (150-450) k/uL Neutrophils # 14.4 H (1.3-7.7) k/uL Lymphocytes # 0.9 L (1.0-4.8) k/uL Monocytes # 1.2 H (0-1.0) k/uL PT (9.0-12.0) sec INR (<1.2) ABG pH (7.35-7.45) ABG pO2 71 L (83-108) mmHg ABG HCO3 (21-25) mmol/L ABG Total CO2 (19-24) mmol/L ABG O2 Saturation 93.0 L (94-97) % ABG Lactic Acid (0.5-1.6) mmol/L Potassium (3.5-5.1) mmol/L Carbon Dioxide (22-30) mmol/L BUN 32 H (7-17) mg/dL Creatinine 1.53 H (0.52-1.04) mg/dL Glucose 138 H (74-99) mg/dL POC Glucose (mg/dL) (75-99) mg/dL Plasma Lactic Acid Iraj (0.7-2.0) mmol/L Calcium 8.0 L (8.4-10.2) mg/dL Ionized Calcium Beatrice 4.2 L (4.5-5.3) mg/dL Phosphorus (2.5-4.5) mg/dL Magnesium (1.6-2.3) mg/dL Total Bilirubin 1.9 H (0.2-1.3) mg/dL AST 1140 H (14-36) U/L ALT 662 H (4-34) U/L Alkaline Phosphatase 30 L (38-126) U/L Total Protein 5.0 L (6.3-8.2) g/dL Amylase (30-110) U/L Crossmatch 12/28/20 12/28/20 12/28/20 Range/Units 04:00 04:00 04:06 WBC (3.8-10.6) k/uL RBC (3.80-5.40) m/uL Hgb (11.4-16.0) gm/dL Hct (34.0-46.0) % RDW (11.5-15.5) % Plt Count (150-450) k/uL Neutrophils # (1.3-7.7) k/uL Lymphocytes # (1.0-4.8) k/uL Monocytes # (0-1.0) k/uL PT (9.0-12.0) sec INR (<1.2) ABG pH (7.35-7.45) ABG pO2 (83-108) mmHg ABG HCO3 (21-25) mmol/L ABG Total CO2 (19-24) mmol/L ABG O2 Saturation (94-97) % ABG Lactic Acid 8.6 H* (0.5-1.6) mmol/L Potassium (3.5-5.1) mmol/L Carbon Dioxide (22-30) mmol/L BUN (7-17) mg/dL Creatinine (0.52-1.04) mg/dL Glucose (74-99) mg/dL POC Glucose (mg/dL) 154 H (75-99) mg/dL Plasma Lactic Acid Iraj (0.7-2.0) mmol/L Calcium (8.4-10.2) mg/dL Ionized Calcium Beatrice (4.5-5.3) mg/dL Phosphorus (2.5-4.5) mg/dL Magnesium (1.6-2.3) mg/dL Total Bilirubin (0.2-1.3) mg/dL AST (14-36) U/L ALT (4-34) U/L Alkaline Phosphatase (38-126) U/L Total Protein (6.3-8.2) g/dL Amylase <30 L (30-110) U/L Crossmatch 12/28/20 12/28/20 12/28/20 Range/Units 04:25 05:01 06:07 WBC (3.8-10.6) k/uL RBC (3.80-5.40) m/uL Hgb (11.4-16.0) gm/dL Hct (34.0-46.0) % RDW (11.5-15.5) % Plt Count (150-450) k/uL Neutrophils # (1.3-7.7) k/uL Lymphocytes # (1.0-4.8) k/uL Monocytes # (0-1.0) k/uL PT (9.0-12.0) sec INR (<1.2) ABG pH (7.35-7.45) ABG pO2 (83-108) mmHg ABG HCO3 (21-25) mmol/L ABG Total CO2 (19-24) mmol/L ABG O2 Saturation (94-97) % ABG Lactic Acid (0.5-1.6) mmol/L Potassium (3.5-5.1) mmol/L Carbon Dioxide (22-30) mmol/L BUN (7-17) mg/dL Creatinine (0.52-1.04) mg/dL Glucose (74-99) mg/dL POC Glucose (mg/dL) 155 H 157 H (75-99) mg/dL Plasma Lactic Acid Iraj (0.7-2.0) mmol/L Calcium (8.4-10.2) mg/dL Ionized Calcium Beatrice (4.5-5.3) mg/dL Phosphorus (2.5-4.5) mg/dL Magnesium (1.6-2.3) mg/dL Total Bilirubin (0.2-1.3) mg/dL AST (14-36) U/L ALT (4-34) U/L Alkaline Phosphatase (38-126) U/L Total Protein (6.3-8.2) g/dL Amylase (30-110) U/L Crossmatch See Detail 12/28/20 12/28/20 12/28/20 Range/Units 06:55 06:55 06:56 WBC (3.8-10.6) k/uL RBC (3.80-5.40) m/uL Hgb (11.4-16.0) gm/dL Hct (34.0-46.0) % RDW (11.5-15.5) % Plt Count (150-450) k/uL Neutrophils # (1.3-7.7) k/uL Lymphocytes # (1.0-4.8) k/uL Monocytes # (0-1.0) k/uL PT 27.0 H (9.0-12.0) sec INR 2.8 H (<1.2) ABG pH (7.35-7.45) ABG pO2 (83-108) mmHg ABG HCO3 (21-25) mmol/L ABG Total CO2 (19-24) mmol/L ABG O2 Saturation (94-97) % ABG Lactic Acid 7.0 H* (0.5-1.6) mmol/L Potassium (3.5-5.1) mmol/L Carbon Dioxide (22-30) mmol/L BUN (7-17) mg/dL Creatinine (0.52-1.04) mg/dL Glucose (74-99) mg/dL POC Glucose (mg/dL) 174 H (75-99) mg/dL Plasma Lactic Acid Iraj (0.7-2.0) mmol/L Calcium (8.4-10.2) mg/dL Ionized Calcium Beatrice (4.5-5.3) mg/dL Phosphorus (2.5-4.5) mg/dL Magnesium (1.6-2.3) mg/dL Total Bilirubin (0.2-1.3) mg/dL AST (14-36) U/L ALT (4-34) U/L Alkaline Phosphatase (38-126) U/L Total Protein (6.3-8.2) g/dL Amylase (30-110) U/L Crossmatch 12/28/20 12/28/20 12/28/20 Range/Units 09:23 09:40 09:40 WBC 18.7 H (3.8-10.6) k/uL RBC 2.58 L (3.80-5.40) m/uL Hgb 8.1 L (11.4-16.0) gm/dL Hct 23.4 L (34.0-46.0) % RDW 16.2 H (11.5-15.5) % Plt Count 124 L (150-450) k/uL Neutrophils # (1.3-7.7) k/uL Lymphocytes # (1.0-4.8) k/uL Monocytes # (0-1.0) k/uL PT (9.0-12.0) sec INR (<1.2) ABG pH (7.35-7.45) ABG pO2 (83-108) mmHg ABG HCO3 (21-25) mmol/L ABG Total CO2 (19-24) mmol/L ABG O2 Saturation (94-97) % ABG Lactic Acid 4.4 H* (0.5-1.6) mmol/L Potassium (3.5-5.1) mmol/L Carbon Dioxide (22-30) mmol/L BUN (7-17) mg/dL Creatinine (0.52-1.04) mg/dL Glucose (74-99) mg/dL POC Glucose (mg/dL) 172 H (75-99) mg/dL Plasma Lactic Acid Iraj (0.7-2.0) mmol/L Calcium (8.4-10.2) mg/dL Ionized Calcium Beatrice (4.5-5.3) mg/dL Phosphorus (2.5-4.5) mg/dL Magnesium (1.6-2.3) mg/dL Total Bilirubin (0.2-1.3) mg/dL AST (14-36) U/L ALT (4-34) U/L Alkaline Phosphatase (38-126) U/L Total Protein (6.3-8.2) g/dL Amylase (30-110) U/L Crossmatch
[2020-12-28 11:59] LABS: Glucose,Whole Blood 158 mg/dL (75-99)
--- NOTE | 2020-12-28 12:04 | P.PN ---
Subjective Progress Note Date: 12/28/20 HISTORY OF PRESENT ILLNESS: 12/27/2020 This is a 65-year-old female with a past medical history significant for CVA/TIA, hypertension, hyperlipidemia, nicotine dependence, and hypothyroidism. Patient follows in the office with Dr. Lee. We have been asked to see the patient in consultation for postoperative care. Patient examined this morning in the intensive care unit. Patient is status post aortic valve replacement and CABG 1: SVG to RCA. Postop day #1. Patient is sitting up in the chair. Patient is hemodynamically stable and not requiring any vasopressor support. Patient is on 5 L nasal cannula with oxygen saturations greater than 92%. The patient has a weak nonproductive cough. She denies chest pain or pressure. She denies shortness of breath. She reports nausea this morning. No episodes of emesis. She is receiving 500cc albumin at the time of examination. Telemetry reveals sinus mechanism. Chest xray small residual right apical pneumothorax may be present. Cardiomegaly. Small left pleural effusion. Laboratory data: WBC 15.2. Hemoglobin 8.0. Platelet count 160. Sodium 137. Potassium 4.8. BUN 19. Creatinine 0.78. Magnesium 2.2. Current home cardiac medications include amlodipine 5 mg daily, metoprolol tartrate 12.5 mg twice a day, Lipitor 40 mg daily, and aspirin 81 mg daily FIDEL: 12/15/2020 revealing severe aortic stenosis which is calcific in nature with mild eccentric aortic regurgitation. Mild mitral and tricuspid regurgitation. Biatrial enlargement. No clot in left atrial appendage. No PFO. Normal LV function. Cardiac catheterization: 12/15/2020 revealing 80% lesion of RCA. 12/28/2020 Patient is s/p CABG x 1 and AVR. POD #1. Patient examined this morning in the ICU. Patient developed hypotension, lactic acidosis, shortness of breath, and increasing oxygen requirement overnight. Patient was placed on a BiPAP. She received sodium bicarb. She is currently on dopamine and Primacor. Hemoglobin is 6.8. Patient received 1 unit packed RBCs. Blood pressure 102/39. Heart rate in the 70s. PHYSICAL EXAM: VITAL SIGNS: Reviewed. GENERAL: Well-developed in no acute distress. HEENT: Head is normocephalic. Pupils are equal, round. Sclerae anicteric. Mucous membranes of the mouth are moist. Neck supple. No JVD or thyromegaly LUNGS: Respirations even and unlabored. Lungs diminished bilaterally. HEART: Regular rate and rhythm. S1 and S2 heard. Chest tube noted with no evidence of air leak. Heart hugger noted. ABDOMEN: Soft. Nondistended. Nontender. EXTREMITIES: Normal range of motion. No clubbing or cyanosis. Peripheral pulses intact. Trace bilateral lower extremity edema NEUROLOGIC: Awake and alert. Oriented x 3. ASSESSMENT: Severe aortic stenosis, s/p bioprosthetic aortic valve replacement, 12/26/2020 Coronary artery disease, s/p CABG x 1 SVG to RCA, 12/26/2020 Acute blood loss anemia Lactic acidosis Transaminitis, suspect secondary to hypotension Hypertension Hyperlipidemia CVA with residual right-sided blindness Hypothyroidism Former nicotine dependence PLAN: Continue postoperative management per CTS Continue dopamine and primacor per CTS Monitor hemoglobin Continue aspirin, plavix, lipitor, and metoprolol Wean bipap as tolerated Continue telemetry monitoring Obtain EKG Further recommendations pending patient course Nurse practitioner note has been reviewed by physician. Signing provider agrees with the documented findings, assessment, and plan of care. Objective - Vital Signs Vital signs: Vital Signs Temp 97.7 F 12/28/20 08:00 Pulse 73 12/28/20 11:23 Resp 14 12/28/20 10:00 BP 108/47 12/28/20 10:00 Pulse Ox 92 L 12/28/20 10:00 Intake & Output 12/27/20 12/28/20 12/28/20 18:59 06:59 18:59 Intake Total 5318.439 4722 448 Output Total 520 662 65 Balance 856.818 390 383 Weight 66.6 kg 67.7 kg Intake: IV 1375 1052 138 0.9 NaCl 440 120 Albumin Human 5% 250 ml 750 250 In Empty Bag 1 bag @ 250 mls/hr IVPB Q1HR PRN Rx#: [id number] CO/CI 30 Lactated Ringers 1,000 ml 470 40 @ 20 mls/hr IV .Q24H [facility] Rx#:[id number] Sodium bicarb ampule 250 ceFAZolin 2 gm In Sodium 50 Chloride 0.9% 50 ml @ 100 mls/hr IVPB Q8HR [facility] Rx# :[id number] pressure bags 75 72 18 Intake, IV Titration 1.818 0 Amount Insulin Regular 100 unit 1.818 0 In Sodium Chloride 0.9% 100 ml @ Per Protocol IV .Q0M [facility] Rx#:[id number] Blood Product 0 310 Rc As-1 Unit 0 310 [id number] Output: Chest Tube Drainage 320 380 Right Pleural/Mediastinal 320 380 Urine 200 282 65 Other: Voiding Method Indwelling Catheter Indwelling Catheter Indwelling Catheter ABP, PAP, CO, CI - Last Documented Arterial Blood Pressure 102/39 Pulmonary Artery Pressure 12/5 Cardiac Output 4.2 Cardiac Index 2.6 - Labs CBC & Chem 7: 12/28/20 09:40 12/28/20 04:00 Labs: Abnormal Lab Results - Last 24 Hours (Table) 12/15/20 12/27/20 12/27/20 Range/Units 14:32 15:06 16:18 WBC (3.8-10.6) k/uL RBC (3.80-5.40) m/uL Hgb (11.4-16.0) gm/dL Hct (34.0-46.0) % RDW (11.5-15.5) % Plt Count (150-450) k/uL Neutrophils # (1.3-7.7) k/uL Lymphocytes # (1.0-4.8) k/uL Monocytes # (0-1.0) k/uL PT (9.0-12.0) sec INR (<1.2) ABG pH (7.35-7.45) ABG pO2 (83-108) mmHg ABG HCO3 (21-25) mmol/L ABG Total CO2 (19-24) mmol/L ABG O2 Saturation (94-97) % ABG Lactic Acid (0.5-1.6) mmol/L Potassium (3.5-5.1) mmol/L Carbon Dioxide (22-30) mmol/L BUN (7-17) mg/dL Creatinine (0.52-1.04) mg/dL Glucose (74-99) mg/dL POC Glucose (mg/dL) 185 H 144 H (75-99) mg/dL Plasma Lactic Acid Iraj (0.7-2.0) mmol/L Calcium (8.4-10.2) mg/dL Ionized Calcium Beatrice (4.5-5.3) mg/dL Phosphorus (2.5-4.5) mg/dL Magnesium (1.6-2.3) mg/dL Total Bilirubin (0.2-1.3) mg/dL AST (14-36) U/L ALT (4-34) U/L Alkaline Phosphatase (38-126) U/L Total Protein (6.3-8.2) g/dL Amylase (30-110) U/L Crossmatch See Detail 12/27/20 12/27/20 12/27/20 Range/Units 18:05 18:06 18:06 WBC 18.3 H (3.8-10.6) k/uL RBC 2.34 L (3.80-5.40) m/uL Hgb 7.5 L (11.4-16.0) gm/dL Hct 21.9 L (34.0-46.0) % RDW 17.1 H (11.5-15.5) % Plt Count 140 L (150-450) k/uL Neutrophils # (1.3-7.7) k/uL Lymphocytes # (1.0-4.8) k/uL Monocytes # (0-1.0) k/uL PT (9.0-12.0) sec INR (<1.2) ABG pH (7.35-7.45) ABG pO2 (83-108) mmHg ABG HCO3 (21-25) mmol/L ABG Total CO2 (19-24) mmol/L ABG O2 Saturation (94-97) % ABG Lactic Acid (0.5-1.6) mmol/L Potassium 5.3 H (3.5-5.1) mmol/L Carbon Dioxide 14 L (22-30) mmol/L BUN 26 H (7-17) mg/dL Creatinine 1.40 H (0.52-1.04) mg/dL Glucose 130 H (74-99) mg/dL POC Glucose (mg/dL) 147 H (75-99) mg/dL Plasma Lactic Acid Iraj (0.7-2.0) mmol/L Calcium 8.1 L (8.4-10.2) mg/dL Ionized Calcium Beatrice (4.5-5.3) mg/dL Phosphorus 7.5 H (2.5-4.5) mg/dL Magnesium 2.4 H (1.6-2.3) mg/dL Total Bilirubin (0.2-1.3) mg/dL AST 173 H (14-36) U/L ALT 93 H (4-34) U/L Alkaline Phosphatase 29 L (38-126) U/L Total Protein 5.3 L (6.3-8.2) g/dL Amylase (30-110) U/L Crossmatch 12/27/20 12/27/20 12/27/20 Range/Units 18:57 20:40 22:13 WBC (3.8-10.6) k/uL RBC (3.80-5.40) m/uL Hgb (11.4-16.0) gm/dL Hct (34.0-46.0) % RDW (11.5-15.5) % Plt Count (150-450) k/uL Neutrophils # (1.3-7.7) k/uL Lymphocytes # (1.0-4.8) k/uL Monocytes # (0-1.0) k/uL PT (9.0-12.0) sec INR (<1.2) ABG pH 7.23 L (7.35-7.45) ABG pO2 74 L (83-108) mmHg ABG HCO3 15 L (21-25) mmol/L ABG Total CO2 16 L (19-24) mmol/L ABG O2 Saturation 93.0 L (94-97) % ABG Lactic Acid (0.5-1.6) mmol/L Potassium (3.5-5.1) mmol/L Carbon Dioxide (22-30) mmol/L BUN (7-17) mg/dL Creatinine (0.52-1.04) mg/dL Glucose (74-99) mg/dL POC Glucose (mg/dL) 127 H 138 H (75-99) mg/dL Plasma Lactic Acid Iraj (0.7-2.0) mmol/L Calcium (8.4-10.2) mg/dL Ionized Calcium Beatrice (4.5-5.3) mg/dL Phosphorus (2.5-4.5) mg/dL Magnesium (1.6-2.3) mg/dL Total Bilirubin (0.2-1.3) mg/dL AST (14-36) U/L ALT (4-34) U/L Alkaline Phosphatase (38-126) U/L Total Protein (6.3-8.2) g/dL Amylase (30-110) U/L Crossmatch 12/27/20 12/27/20 12/27/20 Range/Units 22:16 22:20 22:20 WBC 16.2 H (3.8-10.6) k/uL RBC 2.38 L (3.80-5.40) m/uL Hgb 7.4 L (11.4-16.0) gm/dL Hct 22.3 L (34.0-46.0) % RDW 17.1 H (11.5-15.5) % Plt Count 141 L (150-450) k/uL Neutrophils # 14.2 H (1.3-7.7) k/uL Lymphocytes # 0.7 L (1.0-4.8) k/uL Monocytes # (0-1.0) k/uL PT (9.0-12.0) sec INR (<1.2) ABG pH (7.35-7.45) ABG pO2 (83-108) mmHg ABG HCO3 (21-25) mmol/L ABG Total CO2 (19-24) mmol/L ABG O2 Saturation (94-97) % ABG Lactic Acid (0.5-1.6) mmol/L Potassium 5.5 H (3.5-5.1) mmol/L Carbon Dioxide 16 L (22-30) mmol/L BUN 29 H (7-17) mg/dL Creatinine 1.60 H (0.52-1.04) mg/dL Glucose 125 H (74-99) mg/dL POC Glucose (mg/dL) 140 H (75-99) mg/dL Plasma Lactic Acid Iraj (0.7-2.0) mmol/L Calcium 8.3 L (8.4-10.2) mg/dL Ionized Calcium Beatrice (4.5-5.3) mg/dL Phosphorus (2.5-4.5) mg/dL Magnesium (1.6-2.3) mg/dL Total Bilirubin 1.6 H (0.2-1.3) mg/dL AST 411 H (14-36) U/L ALT 214 H (4-34) U/L Alkaline Phosphatase 28 L (38-126) U/L Total Protein 5.4 L (6.3-8.2) g/dL Amylase (30-110) U/L Crossmatch 12/27/20 12/27/20 12/28/20 Range/Units 22:45 23:43 00:24 WBC (3.8-10.6) k/uL RBC (3.80-5.40) m/uL Hgb (11.4-16.0) gm/dL Hct (34.0-46.0) % RDW (11.5-15.5) % Plt Count (150-450) k/uL Neutrophils # (1.3-7.7) k/uL Lymphocytes # (1.0-4.8) k/uL Monocytes # (0-1.0) k/uL PT (9.0-12.0) sec INR (<1.2) ABG pH 7.32 L (7.35-7.45) ABG pO2 78 L (83-108) mmHg ABG HCO3 18 L (21-25) mmol/L ABG Total CO2 (19-24) mmol/L ABG O2 Saturation (94-97) % ABG Lactic Acid 7.6 H* (0.5-1.6) mmol/L Potassium (3.5-5.1) mmol/L Carbon Dioxide (22-30) mmol/L BUN (7-17) mg/dL Creatinine (0.52-1.04) mg/dL Glucose (74-99) mg/dL POC Glucose (mg/dL) 151 H (75-99) mg/dL Plasma Lactic Acid Iraj (0.7-2.0) mmol/L Calcium (8.4-10.2) mg/dL Ionized Calcium Beatrice (4.5-5.3) mg/dL Phosphorus (2.5-4.5) mg/dL Magnesium (1.6-2.3) mg/dL Total Bilirubin (0.2-1.3) mg/dL AST (14-36) U/L ALT (4-34) U/L Alkaline Phosphatase (38-126) U/L Total Protein (6.3-8.2) g/dL Amylase (30-110) U/L Crossmatch 03/12/28/20 12/28/20 Range/Units 00:58 01:49 01:55 WBC (3.8-10.6) k/uL RBC (3.80-5.40) m/uL Hgb (11.4-16.0) gm/dL Hct (34.0-46.0) % RDW (11.5-15.5) % Plt Count (150-450) k/uL Neutrophils # (1.3-7.7) k/uL Lymphocytes # (1.0-4.8) k/uL Monocytes # (0-1.0) k/uL PT (9.0-12.0) sec INR (<1.2) ABG pH (7.35-7.45) ABG pO2 (83-108) mmHg ABG HCO3 (21-25) mmol/L ABG Total CO2 (19-24) mmol/L ABG O2 Saturation (94-97) % ABG Lactic Acid (0.5-1.6) mmol/L Potassium (3.5-5.1) mmol/L Carbon Dioxide (22-30) mmol/L BUN (7-17) mg/dL Creatinine (0.52-1.04) mg/dL Glucose (74-99) mg/dL POC Glucose (mg/dL) 146 H 144 H (75-99) mg/dL Plasma Lactic Acid Iraj 9.7 H* (0.7-2.0) mmol/L Calcium (8.4-10.2) mg/dL Ionized Calcium Beatrice (4.5-5.3) mg/dL Phosphorus (2.5-4.5) mg/dL Magnesium (1.6-2.3) mg/dL Total Bilirubin (0.2-1.3) mg/dL AST (14-36) U/L ALT (4-34) U/L Alkaline Phosphatase (38-126) U/L Total Protein (6.3-8.2) g/dL Amylase (30-110) U/L Crossmatch 12/28/20 12/28/20 12/28/20 Range/Units 01:58 03:46 04:00 WBC 16.8 H (3.8-10.6) k/uL RBC 2.19 L (3.80-5.40) m/uL Hgb 6.8 L* (11.4-16.0) gm/dL Hct 20.1 L (34.0-46.0) % RDW 17.3 H (11.5-15.5) % Plt Count 136 L (150-450) k/uL Neutrophils # 14.4 H (1.3-7.7) k/uL Lymphocytes # 0.9 L (1.0-4.8) k/uL Monocytes # 1.2 H (0-1.0) k/uL PT (9.0-12.0) sec INR (<1.2) ABG pH 7.34 L (7.35-7.45) ABG pO2 64 L 71 L (83-108) mmHg ABG HCO3 20 L (21-25) mmol/L ABG Total CO2 (19-24) mmol/L ABG O2 Saturation 90.0 L 93.0 L (94-97) % ABG Lactic Acid (0.5-1.6) mmol/L Potassium (3.5-5.1) mmol/L Carbon Dioxide (22-30) mmol/L BUN (7-17) mg/dL Creatinine (0.52-1.04) mg/dL Glucose (74-99) mg/dL POC Glucose (mg/dL) (75-99) mg/dL Plasma Lactic Acid Iraj (0.7-2.0) mmol/L Calcium (8.4-10.2) mg/dL Ionized Calcium Beatrice (4.5-5.3) mg/dL Phosphorus (2.5-4.5) mg/dL Magnesium (1.6-2.3) mg/dL Total Bilirubin (0.2-1.3) mg/dL AST (14-36) U/L ALT (4-34) U/L Alkaline Phosphatase (38-126) U/L Total Protein (6.3-8.2) g/dL Amylase (30-110) U/L Crossmatch 12/28/20 12/28/20 12/28/20 Range/Units 04:00 04:00 04:00 WBC (3.8-10.6) k/uL RBC (3.80-5.40) m/uL Hgb (11.4-16.0) gm/dL Hct (34.0-46.0) % RDW (11.5-15.5) % Plt Count (150-450) k/uL Neutrophils # (1.3-7.7) k/uL Lymphocytes # (1.0-4.8) k/uL Monocytes # (0-1.0) k/uL PT (9.0-12.0) sec INR (<1.2) ABG pH (7.35-7.45) ABG pO2 (83-108) mmHg ABG HCO3 (21-25) mmol/L ABG Total CO2 (19-24) mmol/L ABG O2 Saturation (94-97) % ABG Lactic Acid 8.6 H* (0.5-1.6) mmol/L Potassium (3.5-5.1) mmol/L Carbon Dioxide (22-30) mmol/L BUN 32 H (7-17) mg/dL Creatinine 1.53 H (0.52-1.04) mg/dL Glucose 138 H (74-99) mg/dL POC Glucose (mg/dL) (75-99) mg/dL Plasma Lactic Acid Iraj (0.7-2.0) mmol/L Calcium 8.0 L (8.4-10.2) mg/dL Ionized Calcium Beatrice 4.2 L (4.5-5.3) mg/dL Phosphorus (2.5-4.5) mg/dL Magnesium (1.6-2.3) mg/dL Total Bilirubin 1.9 H (0.2-1.3) mg/dL AST 1140 H (14-36) U/L ALT 662 H (4-34) U/L Alkaline Phosphatase 30 L (38-126) U/L Total Protein 5.0 L (6.3-8.2) g/dL Amylase <30 L (30-110) U/L Crossmatch 12/28/20 12/28/20 12/28/20 Range/Units 04:06 04:25 05:01 WBC (3.8-10.6) k/uL RBC (3.80-5.40) m/uL Hgb (11.4-16.0) gm/dL Hct (34.0-46.0) % RDW (11.5-15.5) % Plt Count (150-450) k/uL Neutrophils # (1.3-7.7) k/uL Lymphocytes # (1.0-4.8) k/uL Monocytes # (0-1.0) k/uL PT (9.0-12.0) sec INR (<1.2) ABG pH (7.35-7.45) ABG pO2 (83-108) mmHg ABG HCO3 (21-25) mmol/L ABG Total CO2 (19-24) mmol/L ABG O2 Saturation (94-97) % ABG Lactic Acid (0.5-1.6) mmol/L Potassium (3.5-5.1) mmol/L Carbon Dioxide (22-30) mmol/L BUN (7-17) mg/dL Creatinine (0.52-1.04) mg/dL Glucose (74-99) mg/dL POC Glucose (mg/dL) 154 H 155 H (75-99) mg/dL Plasma Lactic Acid Iraj (0.7-2.0) mmol/L Calcium (8.4-10.2) mg/dL Ionized Calcium Beatrice (4.5-5.3) mg/dL Phosphorus (2.5-4.5) mg/dL Magnesium (1.6-2.3) mg/dL Total Bilirubin (0.2-1.3) mg/dL AST (14-36) U/L ALT (4-34) U/L Alkaline Phosphatase (38-126) U/L Total Protein (6.3-8.2) g/dL Amylase (30-110) U/L Crossmatch See Detail 12/28/20 12/28/20 12/28/20 Range/Units 06:07 06:55 06:55 WBC (3.8-10.6) k/uL RBC (3.80-5.40) m/uL Hgb (11.4-16.0) gm/dL Hct (34.0-46.0) % RDW (11.5-15.5) % Plt Count (150-450) k/uL Neutrophils # (1.3-7.7) k/uL Lymphocytes # (1.0-4.8) k/uL Monocytes # (0-1.0) k/uL PT 27.0 H (9.0-12.0) sec INR 2.8 H (<1.2) ABG pH (7.35-7.45) ABG pO2 (83-108) mmHg ABG HCO3 (21-25) mmol/L ABG Total CO2 (19-24) mmol/L ABG O2 Saturation (94-97) % ABG Lactic Acid 7.0 H* (0.5-1.6) mmol/L Potassium (3.5-5.1) mmol/L Carbon Dioxide (22-30) mmol/L BUN (7-17) mg/dL Creatinine (0.52-1.04) mg/dL Glucose (74-99) mg/dL POC Glucose (mg/dL) 157 H (75-99) mg/dL Plasma Lactic Acid Iraj (0.7-2.0) mmol/L Calcium (8.4-10.2) mg/dL Ionized Calcium Beatrice (4.5-5.3) mg/dL Phosphorus (2.5-4.5) mg/dL Magnesium (1.6-2.3) mg/dL Total Bilirubin (0.2-1.3) mg/dL AST (14-36) U/L ALT (4-34) U/L Alkaline Phosphatase (38-126) U/L Total Protein (6.3-8.2) g/dL Amylase (30-110) U/L Crossmatch 12/28/20 12/28/20 12/28/20 Range/Units 06:56 07:28 09:23 WBC (3.8-10.6) k/uL RBC (3.80-5.40) m/uL Hgb (11.4-16.0) gm/dL Hct (34.0-46.0) % RDW (11.5-15.5) % Plt Count (150-450) k/uL Neutrophils # (1.3-7.7) k/uL Lymphocytes # (1.0-4.8) k/uL Monocytes # (0-1.0) k/uL PT (9.0-12.0) sec INR (<1.2) ABG pH (7.35-7.45) ABG pO2 70 L (83-108) mmHg ABG HCO3 (21-25) mmol/L ABG Total CO2 25 H (19-24) mmol/L ABG O2 Saturation 93.4 L (94-97) % ABG Lactic Acid (0.5-1.6) mmol/L Potassium (3.5-5.1) mmol/L Carbon Dioxide (22-30) mmol/L BUN (7-17) mg/dL Creatinine (0.52-1.04) mg/dL Glucose (74-99) mg/dL POC Glucose (mg/dL) 174 H 172 H (75-99) mg/dL Plasma Lactic Acid Iraj (0.7-2.0) mmol/L Calcium (8.4-10.2) mg/dL Ionized Calcium Beatrice (4.5-5.3) mg/dL Phosphorus (2.5-4.5) mg/dL Magnesium (1.6-2.3) mg/dL Total Bilirubin (0.2-1.3) mg/dL AST (14-36) U/L ALT (4-34) U/L Alkaline Phosphatase (38-126) U/L Total Protein (6.3-8.2) g/dL Amylase (30-110) U/L Crossmatch 12/28/20 12/28/20 12/28/20 Range/Units 09:40 09:40 10:12 WBC 18.7 H (3.8-10.6) k/uL RBC 2.58 L (3.80-5.40) m/uL Hgb 8.1 L (11.4-16.0) gm/dL Hct 23.4 L (34.0-46.0) % RDW 16.2 H (11.5-15.5) % Plt Count 124 L (150-450) k/uL Neutrophils # (1.3-7.7) k/uL Lymphocytes # (1.0-4.8) k/uL Monocytes # (0-1.0) k/uL PT (9.0-12.0) sec INR (<1.2) ABG pH (7.35-7.45) ABG pO2 (83-108) mmHg ABG HCO3 (21-25) mmol/L ABG Total CO2 (19-24) mmol/L ABG O2 Saturation (94-97) % ABG Lactic Acid 4.4 H* (0.5-1.6) mmol/L Potassium (3.5-5.1) mmol/L Carbon Dioxide (22-30) mmol/L BUN (7-17) mg/dL Creatinine (0.52-1.04) mg/dL Glucose (74-99) mg/dL POC Glucose (mg/dL) 171 H (75-99) mg/dL Plasma Lactic Acid Iraj (0.7-2.0) mmol/L Calcium (8.4-10.2) mg/dL Ionized Calcium Beatrice (4.5-5.3) mg/dL Phosphorus (2.5-4.5) mg/dL Magnesium (1.6-2.3) mg/dL Total Bilirubin (0.2-1.3) mg/dL AST (14-36) U/L ALT (4-34) U/L Alkaline Phosphatase (38-126) U/L Total Protein (6.3-8.2) g/dL Amylase (30-110) U/L Crossmatch
[2020-12-28 12:54] LABS: ABG Base Excess 2.8 mmol/L; ABG HCO3 27 mmol/L (21-25); ABG Oxygen Saturation 94.3 % (94-97); ABG PCO2 43 mmHg (35-45); ABG PH 7.41 (7.35-7.45); ABG PO2 71 mmHg (83-108); ABG TCO2 29 mmol/L (19-24)
[2020-12-28 12:57] LABS: Allen Test Performed? No
[2020-12-28] MEDS ORDERED: ALBUMIN HUMAN 5% 250 ML IVPB ONE ×2 (13:47→20:35)
[2020-12-28] MEDS ORDERED: ALBUMIN HUMAN 5% 500 ML IVPB ONE (14:49)
[2020-12-28] MEDS: ONDANSETRON 4 MG/2 ML VIAL IVP PRN ×2 (14:55→21:24)
[2020-12-28 15:02] LABS: Glucose,Whole Blood 141 mg/dL (75-99)
[2020-12-28] MEDS ORDERED: SODIUM CHLORIDE 0.9% 500 ML 500 ML IV SCH (15:30)
[2020-12-28 16:59] LABS: Glucose,Whole Blood 146 mg/dL (75-99)
[2020-12-28] MEDS: PIPERACILLIN-TAZOBACTAM 3.375 GM in SODIUM CHLORIDE 0.9% 100 ML IVPB SCH ×2 (17:20→22:51)
[2020-12-28 18:47] LABS: Glucose,Whole Blood 151 mg/dL (75-99)
[2020-12-28] MEDS ORDERED: ALBUMIN HUMAN 25% 50 ML in EMPTY BAG 1 BAG IVPB ONE (18:56)
[2020-12-28] MEDS: METOCLOPRAMIDE 5 MG/ML 2 ML VIAL IVP PRN (18:56)
[2020-12-28 19:35] LABS: Calcium 8.5 mg/dL (8.4-10.2); Potassium 4.7 mmol/L (3.5-5.1); Total Bilirubin 2.3 mg/dL (0.2-1.3); Total Protein 5.4 g/dL (6.3-8.2)
[2020-12-28] MEDS: LEVOTHYROXINE 25 MCG TAB PO SCH (19:44)
[2020-12-28] MEDS: SENNOSIDES-DOCUSATE SODIUM 1 EACH TAB PO SCH (19:44)
[2020-12-28] MEDS: SERTRALINE 25 MG TAB PO SCH (19:44)
[2020-12-28] MEDS: PANTOPRAZOLE 40 MG/10 ML VIAL IVP SCH ×2 (19:44→19:46)
[2020-12-28 20:07] LABS: Glucose,Whole Blood 149 mg/dL (75-99)
[2020-12-28] MEDS: FUROSEMIDE 100 MG in SODIUM CHLORIDE 0.9% 90 ML IV SCH (21:17)
[2020-12-28 21:56] LABS: Glucose,Whole Blood 147 mg/dL (75-99)
[2020-12-28] MEDS ORDERED: FUROSEMIDE 10 MG/ML 4 ML VIAL IV STA (22:20)
[2020-12-28] MEDS: SODIUM CHLORIDE 0.9% 1,000 ML IV SCH (22:25)
[2020-12-29] MEDS ORDERED: MORPHINE SULFATE 2 MG/ML SYRINGE ONE ×2 (04:11→04:17)
[2020-12-29 05:37] LABS: Glucose,Whole Blood 136 mg/dL (75-99)
[2020-12-29 05:38] LABS: Glucose,Whole Blood 143 mg/dL (75-99)
[2020-12-29 05:38] LABS: Glucose,Whole Blood 146 mg/dL (75-99)
[2020-12-29 05:54] LABS: Glucose,Whole Blood 145 mg/dL (75-99)
[2020-12-29 06:21] LABS: Calcium 7.8 mg/dL (8.4-10.2); Potassium 4.7 mmol/L (3.5-5.1); Total Protein 5.4 g/dL (6.3-8.2)
[2020-12-29 06:23] LABS: Anisocytosis Slight; Basophils % (A) 0 %; Eosinophils % (A) 0 %; Lymphocytes # (A) 0.6 k/uL (1.0-4.8); Lymphocytes % (A) 4 %; MCH 30.8 pg (25.0-35.0); MCHC 33.4 g/dL (31.0-37.0); MCV 92.2 fL (80.0-100.0); Monocytes % (A) 7 %; Neutrophils # (A) 12.8 k/uL (1.3-7.7); RBC 1.94 m/uL (3.80-5.40); RDW 16.7 % (11.5-15.5); WBC 14.6 k/uL (3.8-10.6)
--- NOTE | 2020-12-29 06:46 | P.PN ---
Subjective Progress Note Date: 12/29/20 55-year-old female patient with known history of aortic valve stenosis along with hypertension and hyperlipidemia and hypothyroidism and previous history of CVA involving the right eye, was having some exertional dyspnea. The patient underwent a cardiac echo and the patient was found to have an ejection fraction of 55-60% along with LVH mild to moderate MR, bicuspid severely calcified aortic valve with a valve area of 0.6 cm and a gradient of 73 along with moderate aortic regurgitation, moderate tricuspid regurgitation and hypertension. The patient also underwent cardiac catheterization and FIDEL for further evaluation. The cath showed right coronary artery stenosis in the order of 85% without any significant coronary artery disease. The transthoracic echocardiogram showed severe aortic stenosis with a valve area of 0.5 cm. Based on that, the patient was taken to the operating room and the patient underwent a aVR and the patient also underwent a single-vessel bypass surgery with SVG to RCA. Currently the patient is in intensive care unit. She is sedated with propofol which is runni ng at 25 mcg/kg per minute. She is on a mechanical ventilator on assist control mode at the rate of 12 and tidal volume of 400 and FiO2 of 50% with a PEEP of 5. The rate will be increased to 29. The blood. Showed a pH of 7.33 with a pCO2 of 50 and pO2 of 317. FiO2 has been drop down to 50% already. The peak airway pressures 24. Hemodynamically, the patient is doing okay. She has a cardiac output of-0 and an index of 3.1. She is on no inotropes for now. She is on Catapres drip at 2 mg an hour with adequate blood pressure control. She has his Stonewall-Kelli catheter in the right IJ. She has chest tubes involving the right pleural, and mediastinal. Sternum stable clean and intact for now. The chest tubes are connected and the total amount of output has been around 100 mL bloody output since the patient came in from the operating room. No evidence of any air leak at this point in time. She is producing urine output around 50 mL an hour. She is cold and the body temperature has returned back to normal 12/27/2020 the patient is being seen for follow-up. The patient was extubated yesterday without any major issues and currently she is on oxygen at 5 L with a pulse ox of 88-90%. Hemodynamically, the patient is doing well. She is off cleviprex for now.. Her most recent cardiac index is 2.7. She is producing adequate amount of urine output. The chest x-ray from today shows some small effusion the left lung base. Stonewall-Kelli catheter good location. The patient has a right-sided pleural chest tube and a mediastinal chest tube and that is no evidence of any air leak and the chest x-ray is not showing any evidence of pneumothorax. Lungs are well expanded. There are some atelectatic changes in lung bases bilaterally. Pulmonary artery pressure is low at 20/10 and the patient is going to receive some more volume today. Output from the chest tube has been a total of 200 mL since arrival from the operating room. Note that both of the chest tubes are connected at this point in time. As mentioned, no evidence of any air leak and the patient is using incentive spirometer. Surgical wound site is dry clean and intact. 12/28/2020 the patient is being seen in follow-up. There is been significant change the patient's condition as of 7 PM yesterday. Note that the patient became progressively more hypotensive and oliguric and sacral patient went into a shock state. Consider the possibility of a cardiogenic shock. Stonewall-Kelli catheter is on the been taken out. Cardiac index earlier was in the order of 2.5 prior to catheter removal. In any rate, the patient became oliguric, hypotensive, became acidotic and the lactic acid level came up to 7.6. At that point, the patient was becoming more short of breath. She was placed on a BiPAP which is still running at a pressure of 12/5 with an FiO2 of 90%. There was a component of metabolic acidosis along with lactic acidosis with a pH of 7.32 and a pCO2 of 35 and pO2 of 78. The patient was given a total of 5 ampules of bicarb and the most recent blood test shows a pH of 7.36 with a pCO2 of 40 and p O2 of 71. At this point in time, the patient is lethargic, on a BiPAP, she is on a combination of dopamine running at 3 mg/kg per minute and Primacor running at 0.2 mcg/kg per minute. Most recent blood pressure is in the order of 140. Cardiac rhythm is sinus. Heart the mid 70s. Pulse is 94% while being on a BiPAP. The patient is going to a shock liver. AST is up to 1140 and ALT is up to 662 with a bilirubin of 1.9. Most recent lactic acid level is at 8.6. Urine output was low and subsequently was improved and currently is up to 30 mL an hour. Hemoglobin from this morning was at 6.8 and the patient is receiving units of packed RBC. Her current CVP is around 17. Echocardiogram is to follow. Chest x-ray from today showing a component of pulmonary vessel congestion/interstitial edema. The patient is a mediastinal and the right pleural chest tube and output is minimal at this point and there is no evidence of any pneumothorax. Overall output from the chest is of the 400 mL since yesterday's shift. 12/29/2020, major events occurring in the patient's care since her surgery. Of concern is the hemodynamic instability, low urine output, lactic acidosis and shock state including a shock liver, and acute kidney injury. Ischemic bowel was suspected knowing that the patient's aorta was heavily calcified and there is a concern for bowel embolism and the time of surgery. In any rate, her abdomen is soft and nontender. Her lactic acid level has improved with fluid resuscitation. The patient went on a combination of dopamine and Primacor. Ejection fraction on a stat echocardiogram showed that the heart was hyperdynamic. For now, the Primacor is running at 0.2 mg/kg per minute. Dopamine is running at 6 mcg/kg per minute. The patient has received fluid boluses. Urine output is no order of 5-10 mL an hour. Lasix drip was started at 15 mg an hour currently and urine output remains low. The patient is having short runs of atrial flutter. In fact this morning at time of my evaluation, she went to a flutter with rapid ventricular response at a heart rate of 135. She remains on BiPAP at a pressure of 12/5 cm of water with an FiO2 of 60%. Chest x-ray shows pulmonary edema. There is a right pleural and mediastinal chest tube. No evidence of an air leak. No evidence of any pneumothorax. Output from the chest tubes have been in the order of 20 mL an hour. She is awake. She is complaining of pain in her chest soreness and the surgical wound site. Her labs are still pending from this morning. The labs from yesterday showed shock liver, elevation in AST and ALT and the subsequent labs from earlier this morning are still pending for now. Serum bicarb is 24 from yesterday. Creatinine is up to 2.1. AST was 11,124 and ALT is 4387. CBC is also showing a hemoglobin of 6 with a platelet count of 26. No signs of any acute bleeding at this point in time. Objective - Vital Signs Vital signs: Vital Signs Temp 97.8 F 12/28/20 20:00 Pulse 86 12/28/20 22:00 Resp 16 12/28/20 22:00 BP 94/48 12/28/20 22:00 Pulse Ox 96 12/28/20 22:00 Intake & Output 12/28/20 12/28/20 12/29/20 06:59 18:59 06:59 Intake Total 1052 864.205 603.26 Output Total 662 315 187 Balance 390 549.205 416.26 Weight 67.7 kg Intake: IV 1052 552 480 0.9 NaCl 440 480 200 Albumin Human 5% 250 ml 250 250 In Empty Bag 1 bag @ 250 mls/hr IVPB Q1HR PRN Rx#: [id number] Lactated Ringers 1,000 ml 40 @ 20 mls/hr IV .Q24H [facility] Rx#:[id number] Sodium bicarb ampule 250 pressure bags 72 72 30 Intake, IV Titration 2.205 123.26 Amount Albumin Human 25% 50 ml 50 In Empty Bag 1 bag @ 50 mls/hr IVPB ONCE ONE Rx#: [id number] Insulin Regular 100 unit 2.205 In Sodium Chloride 0.9% 100 ml @ Per Protocol IV .Q0M [facility] Rx#:[id number] Milrinone-D5w Pmx 20 mg 73.26 In Dextrose/Water 1 100ml .bag @ 0.2 MCG/KG/MIN 3. 996 mls/hr IV .Q24H [facility] Rx#:[id number] Blood Product 0 310 Rc As-1 Unit 0 310 [id number] Output: Chest Tube Drainage 380 180 170 Right Pleural/Mediastinal 380 180 170 Urine 282 135 17 Other: Voiding Method Indwelling Catheter Indwelling Catheter Indwelling Catheter ABP, PAP, CO, CI - Last Documented Arterial Blood Pressure 102/41 Pulmonary Artery Pressure 12/5 Cardiac Output 4.2 Cardiac Index 2.6 - Exam Gen. appearance she is calm and currently on a BiPAP at a pressure of 12/5 with an FiO2 of 60%. She is quite comfortable and synchronous with the machine. Head exam was generally normal. There was no scleral icterus or corneal arcus. Mucous membranes were moist. Neck was supple and without jugular venous distension, thyromegaly, or carotid bruits. Carotids were easily palpable bilaterally. There was no adenopathy. The patient has a right IJ Stonewall-Kelli catheter, has been removed and the patient currently has a Cordis in place Lungs sounds are equal and symmetrical breath sounds bilaterally and the patient is a right pleural and mediastinal chest tube Cardiac exam revealed the PMI to be normally situated and sized. The rhythm was regular and no extrasystoles were noted during several minutes of auscultation. The first and second heart sounds were normal and physiologic splitting of the second heart sound was noted. There were no murmurs, rubs, clicks, or gallops. Abdominal exam revealed normal bowel sounds. The abdomen was soft, non-tender, and without masses, organomegaly, or appreciable enlargement of the abdominal aorta. Examination of the extremities revealed easily palpable radial, femoral and pedal pulses. There was no cyanosis, clubbing or edema. Examination of the skin revealed no evidence of significant rashes, suspicious appearing nevi or other concerning lesions. Neurologic , no focal neurological deficit and the patient is awake and alert 3 - Labs CBC & Chem 7: 12/28/20 09:40 12/28/20 19:00 Labs: Abnormal Lab Results - Last 24 Hours (Table) 12/28/20 12/28/20 12/28/20 Range/Units 04:00 04:25 06:55 WBC (3.8-10.6) k/uL RBC (3.80-5.40) m/uL Hgb (11.4-16.0) gm/dL Hct (34.0-46.0) % RDW (11.5-15.5) % Plt Count (150-450) k/uL PT 27.0 H (9.0-12.0) sec INR 2.8 H (<1.2) ABG pO2 (83-108) mmHg ABG HCO3 (21-25) mmol/L ABG Total CO2 (19-24) mmol/L ABG O2 Saturation (94-97) % ABG Lactic Acid (0.5-1.6) mmol/L BUN (7-17) mg/dL Creatinine (0.52-1.04) mg/dL Glucose (74-99) mg/dL POC Glucose (mg/dL) (75-99) mg/dL Plasma Lactic Acid Iraj (0.7-2.0) mmol/L Total Bilirubin (0.2-1.3) mg/dL AST (14-36) U/L ALT (4-34) U/L Alkaline Phosphatase (38-126) U/L Total Protein (6.3-8.2) g/dL Amylase <30 L (30-110) U/L Procalcitonin (0.02-0.09) ng/mL Crossmatch See Detail 12/28/20 12/28/20 12/28/20 Range/Units 06:55 06:56 07:28 WBC (3.8-10.6) k/uL RBC (3.80-5.40) m/uL Hgb (11.4-16.0) gm/dL Hct (34.0-46.0) % RDW (11.5-15.5) % Plt Count (150-450) k/uL PT (9.0-12.0) sec INR (<1.2) ABG pO2 70 L (83-108) mmHg ABG HCO3 (21-25) mmol/L ABG Total CO2 25 H (19-24) mmol/L ABG O2 Saturation 93.4 L (94-97) % ABG Lactic Acid 7.0 H* (0.5-1.6) mmol/L BUN (7-17) mg/dL Creatinine (0.52-1.04) mg/dL Glucose (74-99) mg/dL POC Glucose (mg/dL) 174 H (75-99) mg/dL Plasma Lactic Acid Iraj (0.7-2.0) mmol/L Total Bilirubin (0.2-1.3) mg/dL AST (14-36) U/L ALT (4-34) U/L Alkaline Phosphatase (38-126) U/L Total Protein (6.3-8.2) g/dL Amylase (30-110) U/L Procalcitonin (0.02-0.09) ng/mL Crossmatch 12/28/20 12/28/20 12/28/20 Range/Units 09:23 09:40 09:40 WBC 18.7 H (3.8-10.6) k/uL RBC 2.58 L (3.80-5.40) m/uL Hgb 8.1 L (11.4-16.0) gm/dL Hct 23.4 L (34.0-46.0) % RDW 16.2 H (11.5-15.5) % Plt Count 124 L (150-450) k/uL PT (9.0-12.0) sec INR (<1.2) ABG pO2 (83-108) mmHg ABG HCO3 (21-25) mmol/L ABG Total CO2 (19-24) mmol/L ABG O2 Saturation (94-97) % ABG Lactic Acid 4.4 H* (0.5-1.6) mmol/L BUN (7-17) mg/dL Creatinine (0.52-1.04) mg/dL Glucose (74-99) mg/dL POC Glucose (mg/dL) 172 H (75-99) mg/dL Plasma Lactic Acid Iraj (0.7-2.0) mmol/L Total Bilirubin (0.2-1.3) mg/dL AST (14-36) U/L ALT (4-34) U/L Alkaline Phosphatase (38-126) U/L Total Protein (6.3-8.2) g/dL Amylase (30-110) U/L Procalcitonin (0.02-0.09) ng/mL Crossmatch 12/28/20 12/28/20 12/28/20 Range/Units 10:12 11:58 12:10 WBC (3.8-10.6) k/uL RBC (3.80-5.40) m/uL Hgb (11.4-16.0) gm/dL Hct (34.0-46.0) % RDW (11.5-15.5) % Plt Count (150-450) k/uL PT (9.0-12.0) sec INR (<1.2) ABG pO2 (83-108) mmHg ABG HCO3 (21-25) mmol/L ABG Total CO2 (19-24) mmol/L ABG O2 Saturation (94-97) % ABG Lactic Acid (0.5-1.6) mmol/L BUN (7-17) mg/dL Creatinine (0.52-1.04) mg/dL Glucose (74-99) mg/dL POC Glucose (mg/dL) 171 H 158 H (75-99) mg/dL Plasma Lactic Acid Iraj 2.9 H* (0.7-2.0) mmol/L Total Bilirubin (0.2-1.3) mg/dL AST (14-36) U/L ALT (4-34) U/L Alkaline Phosphatase (38-126) U/L Total Protein (6.3-8.2) g/dL Amylase (30-110) U/L Procalcitonin (0.02-0.09) ng/mL Crossmatch 12/28/20 12/28/20 12/28/20 Range/Units 12:30 12:48 15:00 WBC (3.8-10.6) k/uL RBC (3.80-5.40) m/uL Hgb (11.4-16.0) gm/dL Hct (34.0-46.0) % RDW (11.5-15.5) % Plt Count (150-450) k/uL PT (9.0-12.0) sec INR (<1.2) ABG pO2 71 L (83-108) mmHg ABG HCO3 27 H (21-25) mmol/L ABG Total CO2 29 H (19-24) mmol/L ABG O2 Saturation (94-97) % ABG Lactic Acid 2.6 H* (0.5-1.6) mmol/L BUN (7-17) mg/dL Creatinine (0.52-1.04) mg/dL Glucose (74-99) mg/dL POC Glucose (mg/dL) 141 H (75-99) mg/dL Plasma Lactic Acid Iraj (0.7-2.0) mmol/L Total Bilirubin (0.2-1.3) mg/dL AST (14-36) U/L ALT (4-34) U/L Alkaline Phosphatase (38-126) U/L Total Protein (6.3-8.2) g/dL Amylase (30-110) U/L Procalcitonin (0.02-0.09) ng/mL Crossmatch 12/28/20 12/28/20 12/28/20 Range/Units 15:19 15:19 16:58 WBC (3.8-10.6) k/uL RBC (3.80-5.40) m/uL Hgb (11.4-16.0) gm/dL Hct (34.0-46.0) % RDW (11.5-15.5) % Plt Count (150-450) k/uL PT (9.0-12.0) sec INR (<1.2) ABG pO2 (83-108) mmHg ABG HCO3 (21-25) mmol/L ABG Total CO2 (19-24) mmol/L ABG O2 Saturation (94-97) % ABG Lactic Acid (0.5-1.6) mmol/L BUN (7-17) mg/dL Creatinine (0.52-1.04) mg/dL Glucose (74-99) mg/dL POC Glucose (mg/dL) 146 H (75-99) mg/dL Plasma Lactic Acid Iraj 2.2 H* (0.7-2.0) mmol/L Total Bilirubin (0.2-1.3) mg/dL AST (14-36) U/L ALT (4-34) U/L Alkaline Phosphatase (38-126) U/L Total Protein (6.3-8.2) g/dL Amylase (30-110) U/L Procalcitonin 0.26 H (0.02-0.09) ng/mL Crossmatch 12/28/20 12/28/20 12/28/20 Range/Units 18:46 19:00 20:06 WBC (3.8-10.6) k/uL RBC (3.80-5.40) m/uL Hgb (11.4-16.0) gm/dL Hct (34.0-46.0) % RDW (11.5-15.5) % Plt Count (150-450) k/uL PT (9.0-12.0) sec INR (<1.2) ABG pO2 (83-108) mmHg ABG HCO3 (21-25) mmol/L ABG Total CO2 (19-24) mmol/L ABG O2 Saturation (94-97) % ABG Lactic Acid (0.5-1.6) mmol/L BUN 48 H (7-17) mg/dL Creatinine 2.15 H (0.52-1.04) mg/dL Glucose 130 H (74-99) mg/dL POC Glucose (mg/dL) 151 H 149 H (75-99) mg/dL Plasma Lactic Acid Iraj (0.7-2.0) mmol/L Total Bilirubin 2.3 H (0.2-1.3) mg/dL AST 53086 H (14-36) U/L ALT 4387 H (4-34) U/L Alkaline Phosphatase 35 L (38-126) U/L Total Protein 5.4 L (6.3-8.2) g/dL Amylase (30-110) U/L Procalcitonin (0.02-0.09) ng/mL Crossmatch 12/28/20 12/28/20 12/29/20 Range/Units 21:55 23:59 01:59 WBC (3.8-10.6) k/uL RBC (3.80-5.40) m/uL Hgb (11.4-16.0) gm/dL Hct (34.0-46.0) % RDW (11.5-15.5) % Plt Count (150-450) k/uL PT (9.0-12.0) sec INR (<1.2) ABG pO2 (83-108) mmHg ABG HCO3 (21-25) mmol/L ABG Total CO2 (19-24) mmol/L ABG O2 Saturation (94-97) % ABG Lactic Acid (0.5-1.6) mmol/L BUN (7-17) mg/dL Creatinine (0.52-1.04) mg/dL Glucose (74-99) mg/dL POC Glucose (mg/dL) 147 H 136 H 143 H (75-99) mg/dL Plasma Lactic Acid Iraj (0.7-2.0) mmol/L Total Bilirubin (0.2-1.3) mg/dL AST (14-36) U/L ALT (4-34) U/L Alkaline Phosphatase (38-126) U/L Total Protein (6.3-8.2) g/dL Amylase (30-110) U/L Procalcitonin (0.02-0.09) ng/mL Crossmatch 12/29/20 12/29/20 Range/Units 04:42 05:53 WBC (3.8-10.6) k/uL RBC (3.80-5.40) m/uL Hgb (11.4-16.0) gm/dL Hct (34.0-46.0) % RDW (11.5-15.5) % Plt Count (150-450) k/uL PT (9.0-12.0) sec INR (<1.2) ABG pO2 (83-108) mmHg ABG HCO3 (21-25) mmol/L ABG Total CO2 (19-24) mmol/L ABG O2 Saturation (94-97) % ABG Lactic Acid (0.5-1.6) mmol/L BUN (7-17) mg/dL Creatinine (0.52-1.04) mg/dL Glucose (74-99) mg/dL POC Glucose (mg/dL) 146 H 145 H (75-99) mg/dL Plasma Lactic Acid Iraj (0.7-2.0) mmol/L Total Bilirubin (0.2-1.3) mg/dL AST (14-36) U/L ALT (4-34) U/L Alkaline Phosphatase (38-126) U/L Total Protein (6.3-8.2) g/dL Amylase (30-110) U/L Procalcitonin (0.02-0.09) ng/mL Crossmatch Assessment and Plan Plan: 1 aortic valve replacement and single-vessel bypass surgery with SVG to RCA and a left atrial clipping and the patient is currently postop day #3. The patient became acutely hypotensive, low urine output and lactic acidosis and this is probably related to into the operative bowel ischemia or embolization. Her abdomen is soft. Focused on is minimally elevated. The patient's echocardiogram showed a hyperdynamic LV and there was no underlying valvular dysfunction. As such, the patient is still on a combination of dopamine and Primacor. She is also on Lasix drip for a low urine output of 5-10 mL an hour. She has developed an acute kidney injury. She has developed a shock liver. She is also having runs of atrial flutter with rapid ventricular response. She remains on BiPAP for respiratory support. 2 post thoracotomy, currently on BiPAP for respiratory support. Chest x-ray showing interstitial edema. All of the chest tubes are in place and there is no evidence of any air leak or pneumothorax. The patient is progressively getting 3 severe lactic acidosis, considered the possibility of a cardiogenic shock lactic acid level is improving 4 shock liver secondary to above 5 anemia with acute drop in hemoglobin , platelets of also dropped and the patient's hemoglobin is at 6 with a count of 25. The patient will need to units of packed RBC and platelet transfusion. 6 acute kidney injury. Creatinine is pending for now. Nevertheless the patient is oliguric despite being on Lasix drip at 50 mg an hour. There are signs of fluid overload and interstitial edema. Renal replacement therapy will be needed. 7 hypertension 8 hyperlipidemia 9 hypothyroidism 10 degenerative arthritis with chronic back and hip pain 11 history of CVA 12 episodes of atrial flutter with rapid ventricular response Plan Continue BiPAP 12/5 with an FiO2 of 60% The patient is developing interstitial edema. It's likely that she may need to be intubated and later stage Transfuse total of 2 units of packed RBC along with platelet transfusion Monitor CVP which is currently at 20-25 Monitor today flutter and try to visualize the patient for rate control. We'll try to give him 0.25 mg of digoxin for now Continue the combination of Primacor and dopamine, lower the dose of Primacor to 0.1 Nephrology consultation/vascular surgery consult for dialysis access. We'll likely need renal replacement therapy over the next few hours IV fluids at to be reduced to 50 mL an hour Monitor lactic acid level , LFTs, renal function and hemoglobin Repeat coagulation profile Keep chest tubes in place We'll continue to follow. Keep in ICU for another 24 hours. Patient is critical. Discussed the case with cardiothoracic surgery. Likely will require reintubation. We'll continue to follow. Critically care evaluation more than 30 minutes. Time with Patient: Greater than 30
[2020-12-29] MEDS ORDERED: DIGOXIN 250 MCG/ML 2 ML AMP IVP ONE ×4 (06:47→16:30)
[2020-12-29] MEDS: IPRATROPIUM-ALBUTEROL 3 ML NEB INHALATION SCH ×4 (07:17→20:48)
--- NOTE | 2020-12-29 07:18 | XR ---
EXAMINATION TYPE: XR chest 1V portable DATE OF EXAM: 12/29/2020 COMPARISON: 12/28/2020 HISTORY: Post cardiac surgery TECHNIQUE: Single frontal view of the chest is obtained. FINDINGS: Heart is enlarged and is bilateral consolidation and pleural effusion. Mediastinal drain a nd right-sided chest tube noted. Suggestion of a prosthetic heart valve and epicardial lead. Bilatera l interstitial changes and basilar infiltrates tiny less than 5% right apical pneumothorax. IMPRESSION: 1. Postoperative change with bilateral infiltrate and pleural effusion stable. 2. Less than 5% right apical pneumothorax.
[2020-12-29 07:30] LABS: HCT 17.9 % (34.0-46.0)
[2020-12-29 07:45] LABS: INR 3.3 (<1.2); Partial Thromboplastin Time 37.7 sec (22.0-30.0); Prothrombin Time 32.1 sec (9.0-12.0)
[2020-12-29] MEDS ORDERED: CALCIUM GLUCONATE 2 GM in SODIUM CHLORIDE 0.9% 100 ML IVPB ONE (07:57)
[2020-12-29] MEDS: PIPERACILLIN-TAZOBACTAM 3.375 GM in SODIUM CHLORIDE 0.9% 100 ML IVPB SCH ×2 (07:59→21:21)
[2020-12-29] MEDS: PANTOPRAZOLE 40 MG/10 ML VIAL IVP SCH ×2 (07:59→20:54)
[2020-12-29] MEDS: DEXTROSE/WATER 1 250ML.BAG with DOPamine DRIP 800 MG IV SCH (08:01)
[2020-12-29] MEDS: HEPARIN SODIUM,PORCINE 5,000 UNIT/ML 1 ML VIAL SQ SCH (08:02)
[2020-12-29] MEDS: FUROSEMIDE 100 MG in SODIUM CHLORIDE 0.9% 90 ML IV SCH ×2 (08:03→16:09)
[2020-12-29 08:05] LABS: Toxic Granulation Present
[2020-12-29 08:06] LABS: Platelet Count 26 k/uL (150-450)
[2020-12-29] MEDS ORDERED: FUROSEMIDE 10 MG/ML 10 ML VIAL IV STA (08:10)
[2020-12-29] MEDS ORDERED: PHYTONADIONE 10 MG in SODIUM CHLORIDE 0.9% 50 ML IVPB STA (08:11)
[2020-12-29 09:09] LABS: Glucose,Whole Blood 127 mg/dL (75-99)
[2020-12-29] MEDS: PHENYLEPHRINE 40 MG in SODIUM CHLORIDE 0.9% 250 ML IV SCH (09:12)
--- NOTE | 2020-12-29 10:07 | P.PN ---
Subjective Progress Note Date: 12/29/20 Principal diagnosis: Severe bicuspid aortic valve stenosis, coronary artery disease. 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, right internal carotid artery stenosis 50-79% per Doppler, previous tobacco dependence with moderate obstructive lung disease and preoperative FEV1 56% of predicted, preoperative elevation of AST and ALT, degenerative arthritis with chronic back pain, and fam chato history of colon cancer POD #3 aortic valve replacement with #21 mm Jackson Inspiris bioprosthetic aortic valve, coronary artery bypass grafting 1 with reverse saphenous vein graft off the aorta to the right coronary artery, clip ligation of the left atrial appendage with a 35 mm AtriClip, intraoperative transesophageal echocardiogram. Postoperative acute blood loss anemia, expected secondary to hemodilution and cardiopulmonary bypass pump, status post PRBC transfusion Hypotension requiring pressor use Acute kidney injury secondary to hypoperfusion requiring initiation of dialysis Shock liver secondary to hypoperfusion Lactic acidosis secondary to hypoperfusion, resolving Hypoxic respiratory failure requiring BiPAP Thrombocytopenia A. fib with RVR, known common occurrence after open heart surgery The patient was seen and examined this morning the intensive care unit with Dr. Chen. She does complain of post surgical pain, some shortness of breath. She remains on BiPAP with good oxygenation and titration down of her FiO2. Her blood pressure has continued to be hypotensive despite multiple IV boluses and packed red blood cell transfusion yesterday, she was initiated on Agustín-Synephrine this morning. She went into A. fib with RVR this morning, she was given IV digo jesus this morning. Blood cultures were drawn yesterday, pending. Pro-calcitonin 0.26, remains afebrile. Placed on IV Zosyn yesterday. WBC 14.6, hemoglobin 6.0, platelet count 26,000, BUN 53, creatinine 2.77, INR 3.3, AST 71566, ALT 3572, and most recent lactic acid 2.2. She is to receive packed red blood cells, platelets, fresh frozen plasma, she has received vitamin K. She has had little to no urine output. Nephrology was consulted, vascular surgery was consulted for placement of dialysis catheter and the patient will receive dialysis once placed. Hematology was consulted. Dopamine discontinued, Primacor decreased to 0.1 mcg/kg/min. The patient was initiated on IV Lasix last night without improvement in her urine output. Family updated. Objective - Vital Signs Vital signs: Vital Signs Temp 97.8 F 12/28/20 20:00 Pulse 124 H 12/29/20 07:28 Resp 20 12/29/20 07:00 BP 104/48 12/29/20 07:00 Pulse Ox 92 L 12/29/20 07:00 Intake & Output 12/28/20 12/29/20 12/29/20 18:59 06:59 18:59 Intake Total 864.205 962.356 146 Output Total 315 215 3 Balance 549.205 747.356 143 Weight 70.7 kg Intake: IV 552 802 46 0.9 NaCl 480 480 40 Albumin Human 5% 250 ml 250 In Empty Bag 1 bag @ 250 mls/hr IVPB Q1HR PRN Rx#: [id number] pressure bags 72 72 6 Intake, IV Titration 2.205 160.356 100 Amount Albumin Human 25% 50 ml 50 In Empty Bag 1 bag @ 50 mls/hr IVPB ONCE ONE Rx#: [id number] Furosemide 100 mg In 100 Sodium Chloride 0.9% 90 ml @ 10 MG/HR 10 mls/hr IV .Q10H [facility] Rx#: [id number] Insulin Regular 100 unit 2.205 In Sodium Chloride 0.9% 100 ml @ Per Protocol IV .Q0M [facility] Rx#:[id number] Milrinone-D5w Pmx 20 mg 110.356 In Dextrose/Water 1 100ml .bag @ 0.1 MCG/KG/MIN 1. 998 mls/hr IV .Q24H [facility] Rx#:[id number] Blood Product 310 Rc As-1 Unit 310 [id number] Output: Chest Tube Drainage 180 170 Right Pleural/Mediastinal 180 170 Urine 135 45 3 Other: Voiding Method Indwelling Catheter Indwelling Catheter ABP, PAP, CO, CI - Last Documented Arterial Blood Pressure 108/52 Pulmonary Artery Pressure 12/5 Cardiac Output 4.2 Cardiac Index 2.6 - Exam CONSTITUTIONAL: Appears comfortable, cooperative RESPIRATORY: Lungs sounds diminished bilaterally with coarse breath sounds in the bases. Respirations even, nonlabored. Currently on BiPAP with oxygen saturation low to mid 90s, settings 60% FiO2, 12/5. Strong nonproductive cough. CARDIOVASCULAR: S1, S2 present. Irregular, tachycardic rate and rhythm, A. fib with RVR on telemetry, heart rate in the 115-130. Sternum stable. Palpable peripheral pulses bilaterally. Generalized edema present. No calf pain or tenderness noted. Heart hugger in place. Antiembolism stockings, SCDs present. GASTROINTESTINAL: Abdomen soft, nontender, nondistended. Active bowel sounds present 4 quadrants. GENITOURINARY: Acevedo present draining minimal concentrated urine. Output overnight 5-10 mL per hour INTEGUMENTARY: Skin is warm and dry, pale. Anterior chest incision well approximated and covered with dry intact dressing. EVH site well approximated without redness or drainage. NEUROLOGIC: Cranial nerves II through XII intact MUSKULOSKELETAL: Able to move all extremities, strength equal bilaterally but weak PSYCHIATRIC: Alert and oriented to person place and time, appropriate affect, intact judgment and insight INVASIVE LINES AND TUBES: Mediastinal/right pleural chest tubes present and connected to wall suction, no air leaks present. Mediastinal/right tube with 350 mL serosanguineous drainage in the last 24 hours. A/V epicardial pacemaker wires present, connected to generator, VVI mode with backup rate 50 bpm. Right internal jugular Cordis, right radial arterial line present. - Labs CBC & Chem 7: 12/29/20 04:40 12/29/20 04:40 Labs: Abnormal Lab Results - Last 24 Hours (Table) 12/28/20 12/28/20 12/28/20 Range/Units 04:25 07:28 09:40 WBC 18.7 H (3.8-10.6) k/uL RBC 2.58 L (3.80-5.40) m/uL Hgb 8.1 L (11.4-16.0) gm/dL Hct 23.4 L (34.0-46.0) % RDW 16.2 H (11.5-15.5) % Plt Count 124 L (150-450) k/uL Neutrophils # (1.3-7.7) k/uL Lymphocytes # (1.0-4.8) k/uL PT (9.0-12.0) sec INR (<1.2) APTT (22.0-30.0) sec ABG pO2 70 L (83-108) mmHg ABG HCO3 (21-25) mmol/L ABG Total CO2 25 H (19-24) mmol/L ABG O2 Saturation 93.4 L (94-97) % ABG Lactic Acid (0.5-1.6) mmol/L BUN (7-17) mg/dL Creatinine (0.52-1.04) mg/dL Glucose (74-99) mg/dL POC Glucose (mg/dL) (75-99) mg/dL Plasma Lactic Acid Iraj (0.7-2.0) mmol/L Calcium (8.4-10.2) mg/dL Total Bilirubin (0.2-1.3) mg/dL AST (14-36) U/L ALT (4-34) U/L Alkaline Phosphatase (38-126) U/L Total Protein (6.3-8.2) g/dL Procalcitonin (0.02-0.09) ng/mL Crossmatch See Detail 12/28/20 12/28/20 12/28/20 Range/Units 09:40 10:12 11:58 WBC (3.8-10.6) k/uL RBC (3.80-5.40) m/uL Hgb (11.4-16.0) gm/dL Hct (34.0-46.0) % RDW (11.5-15.5) % Plt Count (150-450) k/uL Neutrophils # (1.3-7.7) k/uL Lymphocytes # (1.0-4.8) k/uL PT (9.0-12.0) sec INR (<1.2) APTT (22.0-30.0) sec ABG pO2 (83-108) mmHg ABG HCO3 (21-25) mmol/L ABG Total CO2 (19-24) mmol/L ABG O2 Saturation (94-97) % ABG Lactic Acid 4.4 H* (0.5-1.6) mmol/L BUN (7-17) mg/dL Creatinine (0.52-1.04) mg/dL Glucose (74-99) mg/dL POC Glucose (mg/dL) 171 H 158 H (75-99) mg/dL Plasma Lactic Acid Iraj (0.7-2.0) mmol/L Calcium (8.4-10.2) mg/dL Total Bilirubin (0.2-1.3) mg/dL AST (14-36) U/L ALT (4-34) U/L Alkaline Phosphatase (38-126) U/L Total Protein (6.3-8.2) g/dL Procalcitonin (0.02-0.09) ng/mL Crossmatch 12/28/20 12/28/20 12/28/20 Range/Units 12:10 12:30 12:48 WBC (3.8-10.6) k/uL RBC (3.80-5.40) m/uL Hgb (11.4-16.0) gm/dL Hct (34.0-46.0) % RDW (11.5-15.5) % Plt Count (150-450) k/uL Neutrophils # (1.3-7.7) k/uL Lymphocytes # (1.0-4.8) k/uL PT (9.0-12.0) sec INR (<1.2) APTT (22.0-30.0) sec ABG pO2 71 L (83-108) mmHg ABG HCO3 27 H (21-25) mmol/L ABG Total CO2 29 H (19-24) mmol/L ABG O2 Saturation (94-97) % ABG Lactic Acid 2.6 H* (0.5-1.6) mmol/L BUN (7-17) mg/dL Creatinine (0.52-1.04) mg/dL Glucose (74-99) mg/dL POC Glucose (mg/dL) (75-99) mg/dL Plasma Lactic Acid Iraj 2.9 H* (0.7-2.0) mmol/L Calcium (8.4-10.2) mg/dL Total Bilirubin (0.2-1.3) mg/dL AST (14-36) U/L ALT (4-34) U/L Alkaline Phosphatase (38-126) U/L Total Protein (6.3-8.2) g/dL Procalcitonin (0.02-0.09) ng/mL Crossmatch 12/28/20 12/28/20 12/28/20 Range/Units 15:00 15:19 15:19 WBC (3.8-10.6) k/uL RBC (3.80-5.40) m/uL Hgb (11.4-16.0) gm/dL Hct (34.0-46.0) % RDW (11.5-15.5) % Plt Count (150-450) k/uL Neutrophils # (1.3-7.7) k/uL Lymphocytes # (1.0-4.8) k/uL PT (9.0-12.0) sec INR (<1.2) APTT (22.0-30.0) sec ABG pO2 (83-108) mmHg ABG HCO3 (21-25) mmol/L ABG Total CO2 (19-24) mmol/L ABG O2 Saturation (94-97) % ABG Lactic Acid (0.5-1.6) mmol/L BUN (7-17) mg/dL Creatinine (0.52-1.04) mg/dL Glucose (74-99) mg/dL POC Glucose (mg/dL) 141 H (75-99) mg/dL Plasma Lactic Acid Iraj 2.2 H* (0.7-2.0) mmol/L Calcium (8.4-10.2) mg/dL Total Bilirubin (0.2-1.3) mg/dL AST (14-36) U/L ALT (4-34) U/L Alkaline Phosphatase (38-126) U/L Total Protein (6.3-8.2) g/dL Procalcitonin 0.26 H (0.02-0.09) ng/mL Crossmatch 12/28/20 12/28/20 12/28/20 Range/Units 16:58 18:46 19:00 WBC (3.8-10.6) k/uL RBC (3.80-5.40) m/uL Hgb (11.4-16.0) gm/dL Hct (34.0-46.0) % RDW (11.5-15.5) % Plt Count (150-450) k/uL Neutrophils # (1.3-7.7) k/uL Lymphocytes # (1.0-4.8) k/uL PT (9.0-12.0) sec INR (<1.2) APTT (22.0-30.0) sec ABG pO2 (83-108) mmHg ABG HCO3 (21-25) mmol/L ABG Total CO2 (19-24) mmol/L ABG O2 Saturation (94-97) % ABG Lactic Acid (0.5-1.6) mmol/L BUN 48 H (7-17) mg/dL Creatinine 2.15 H (0.52-1.04) mg/dL Glucose 130 H (74-99) mg/dL POC Glucose (mg/dL) 146 H 151 H (75-99) mg/dL Plasma Lactic Acid Iraj (0.7-2.0) mmol/L Calcium (8.4-10.2) mg/dL Total Bilirubin 2.3 H (0.2-1.3) mg/dL AST 72136 H (14-36) U/L ALT 4387 H (4-34) U/L Alkaline Phosphatase 35 L (38-126) U/L Total Protein 5.4 L (6.3-8.2) g/dL Procalcitonin (0.02-0.09) ng/mL Crossmatch 12/28/20 12/28/20 12/28/20 Range/Units 20:06 21:55 23:59 WBC (3.8-10.6) k/uL RBC (3.80-5.40) m/uL Hgb (11.4-16.0) gm/dL Hct (34.0-46.0) % RDW (11.5-15.5) % Plt Count (150-450) k/uL Neutrophils # (1.3-7.7) k/uL Lymphocytes # (1.0-4.8) k/uL PT (9.0-12.0) sec INR (<1.2) APTT (22.0-30.0) sec ABG pO2 (83-108) mmHg ABG HCO3 (21-25) mmol/L ABG Total CO2 (19-24) mmol/L ABG O2 Saturation (94-97) % ABG Lactic Acid (0.5-1.6) mmol/L BUN (7-17) mg/dL Creatinine (0.52-1.04) mg/dL Glucose (74-99) mg/dL POC Glucose (mg/dL) 149 H 147 H 136 H (75-99) mg/dL Plasma Lactic Acid Iraj (0.7-2.0) mmol/L Calcium (8.4-10.2) mg/dL Total Bilirubin (0.2-1.3) mg/dL AST (14-36) U/L ALT (4-34) U/L Alkaline Phosphatase (38-126) U/L Total Protein (6.3-8.2) g/dL Procalcitonin (0.02-0.09) ng/mL Crossmatch 12/29/20 12/29/20 12/29/20 Range/Units 01:59 04:40 04:40 WBC 14.6 H (3.8-10.6) k/uL RBC 1.94 L (3.80-5.40) m/uL Hgb 6.0 L* D (11.4-16.0) gm/dL Hct 17.9 L* (34.0-46.0) % RDW 16.7 H (11.5-15.5) % Plt Count 26 L D (150-450) k/uL Neutrophils # 12.8 H (1.3-7.7) k/uL Lymphocytes # 0.6 L (1.0-4.8) k/uL PT (9.0-12.0) sec INR (<1.2) APTT (22.0-30.0) sec ABG pO2 (83-108) mmHg ABG HCO3 (21-25) mmol/L ABG Total CO2 (19-24) mmol/L ABG O2 Saturation (94-97) % ABG Lactic Acid (0.5-1.6) mmol/L BUN 53 H (7-17) mg/dL Creatinine 2.77 H (0.52-1.04) mg/dL Glucose 125 H (74-99) mg/dL POC Glucose (mg/dL) 143 H (75-99) mg/dL Plasma Lactic Acid Iraj (0.7-2.0) mmol/L Calcium 7.8 L (8.4-10.2) mg/dL Total Bilirubin 3.0 H (0.2-1.3) mg/dL AST 84419 H (14-36) U/L ALT 3572 H (4-34) U/L Alkaline Phosphatase (38-126) U/L Total Protein 5.4 L (6.3-8.2) g/dL Procalcitonin (0.02-0.09) ng/mL Crossmatch 12/29/20 12/29/20 12/29/20 Range/Units 04:42 05:53 07:12 WBC (3.8-10.6) k/uL RBC (3.80-5.40) m/uL Hgb (11.4-16.0) gm/dL Hct (34.0-46.0) % RDW (11.5-15.5) % Plt Count (150-450) k/uL Neutrophils # (1.3-7.7) k/uL Lymphocytes # (1.0-4.8) k/uL PT 32.1 H (9.0-12.0) sec INR 3.3 H (<1.2) APTT 37.7 H (22.0-30.0) sec ABG pO2 (83-108) mmHg ABG HCO3 (21-25) mmol/L ABG Total CO2 (19-24) mmol/L ABG O2 Saturation (94-97) % ABG Lactic Acid (0.5-1.6) mmol/L BUN (7-17) mg/dL Creatinine (0.52-1.04) mg/dL Glucose (74-99) mg/dL POC Glucose (mg/dL) 146 H 145 H (75-99) mg/dL Plasma Lactic Acid Iraj (0.7-2.0) mmol/L Calcium (8.4-10.2) mg/dL Total Bilirubin (0.2-1.3) mg/dL AST (14-36) U/L ALT (4-34) U/L Alkaline Phosphatase (38-126) U/L Total Protein (6.3-8.2) g/dL Procalcitonin (0.02-0.09) ng/mL Crossmatch 12/29/20 Range/Units 09:07 WBC (3.8-10.6) k/uL RBC (3.80-5.40) m/uL Hgb (11.4-16.0) gm/dL Hct (34.0-46.0) % RDW (11.5-15.5) % Plt Count (150-450) k/uL Neutrophils # (1.3-7.7) k/uL Lymphocytes # (1.0-4.8) k/uL PT (9.0-12.0) sec INR (<1.2) APTT (22.0-30.0) sec ABG pO2 (83-108) mmHg ABG HCO3 (21-25) mmol/L ABG Total CO2 (19-24) mmol/L ABG O2 Saturation (94-97) % ABG Lactic Acid (0.5-1.6) mmol/L BUN (7-17) mg/dL Creatinine (0.52-1.04) mg/dL Glucose (74-99) mg/dL POC Glucose (mg/dL) 127 H (75-99) mg/dL Plasma Lactic Acid Iraj (0.7-2.0) mmol/L Calcium (8.4-10.2) mg/dL Total Bilirubin (0.2-1.3) mg/dL AST (14-36) U/L ALT (4-34) U/L Alkaline Phosphatase (38-126) U/L Total Protein (6.3-8.2) g/dL Procalcitonin (0.02-0.09) ng/mL Crossmatch Assessment and Plan Assessment: 1. Severe bicuspid aortic valve stenosis, status post aortic valve replacement with #21 mm Jackson Inspiris bioprosthetic aortic valve 2. Coronary artery disease, status post single vessel CABG 3. History of hypertension, currently hypotensive on Agustín-Synephrine 4. Hyperlipidemia, treated, cholesterol 111, LDL 38 5. Hypothyroid 6. 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 Right internal carotid artery stenosis 50-79% per Doppler 8. Previous tobacco dependence with moderate obstructive lung disease and preoperative FEV1 56% of predicted 9. Preoperative elevation of AST and ALT with transaminitis postoperatively, likely from hypotension 10. Degenerative arthritis with chronic back pain 11. Family history of colon cancer 12. Postoperative acute blood loss anemia, expected secondary to hemodilution and cardiopulmonary bypass pump 13. Hypotension requiring pressor use 14. Acute kidney injury secondary to hypoperfusion requiring initiation of dialysis 15. Shock liver secondary to hypoperfusion 16. Lactic acidosis secondary to hypoperfusion, resolving 17. Hypoxic respiratory failure requiring BiPAP 18. Thrombocytopenia 19. A. fib with RVR, known common occurrence after open heart surgery, status post exclusion of the left atrial appendage Plan: 1. Aspirin, statin, Plavix, beta kiki on hold, will restart when able. IV digoxin load ordered. No amiodarone given secondary to elevated liver function. No anticoagulation secondary to anemia, thrombocytopenia, coagulopathy 2. Continue IV Agustín-Synephrine for blood pressure support, Primacor decrease to 0.1 mcg/kg/m 3. 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 Bronchodilators per mixing plant operator 4. Will transfuse PRBCs, FFP, platelets. Vitamin K 10 mg IV push already given 5. Increase activity when able. PT/OT/cardiac rehab consulted 6. Will monitor daily labs and chest x-rays. Electrolyte replacement per protocol, will give IV calcium. 7. GI/DVT prophylaxis 8. Pain control current per current medication regimen 9. Insulin management per primary care service. Patient is not diabetic, hemoglobin A1c 5.7% 10. Nephrology consulted, appreciate recommendations. Currently on IV continuously 6 11. Vascular surgery consulted for temporary dialysis catheter placement 12. Hematology consulted for thrombocytopenia, elevated liver function. HIT panel sent. Ammonia level ordered 13. Will continue mediastinal, left pleural chest tubes for another 24 hours 14. Continue Acevedo for strict accurate intake and output. Daily weight 13. More recommendations to follow based on patient's progress Time with Patient: Greater than 30
[2020-12-29] MEDS ORDERED: fentaNYL (PF) 50 MCG/ML 2 ML AMP IVP ONE (10:38)
--- NOTE | 2020-12-29 11:58 | P.GSCN ---
<Edwina Mason - Last Filed: 12/29/20 11:48> History of Present Illness Consult date: 12/29/20 Reason for Consult: Temporary dialysis catheter History of present illness: This is a 65-year-old female patient with known history of aortic valve stenosis along with hypertension and hyperlipidemia and hypothyroidism and previous history of CVA involving the right eye, was having some exertional dyspnea. The patient underwent a cardiac echo and the patient was found to have an ejection fraction of 55-60% along with LVH mild to moderate MR, bicuspid severely calci fied aortic valve with a valve area of 0.6 cm and a gradient of 73 along with moderate aortic regurgitation, moderate tricuspid regurgitation and hypertension. The patient also underwent cardiac catheterization and FIDEL for further evaluation. The cath showed right coronary artery stenosis in the order of 85% without any significant coronary artery disease. The transthoracic echocardiogram showed severe aortic stenosis with a valve area of 0.5 cm. Based on that, the patient was taken to the operating room and the patient underwent a aVR and the patient also underwent a single-vessel bypass surgery with SVG to RCA. Currently the patient is in intensive care unit. She has been hypotensive with low urine output, lactic acidosis and shock state including a shock liver, along with acute kidney injury. Due to her acute kidney injury and oliguria, vascular surgery has been consult for temporary hemodialysis catheter placement. Her lactic acid level has improved with fluid resuscitat ion. Ejection fraction on a stat echocardiogram showed that the heart was hyperdynamic. The patient has received fluid boluses. Urine output is no order of 5-10 mL an hour. Lasix drip was started at 15 mg an hour currently and urine output remains low. She is on BiPAP. Chest x-ray shows pulmonary edema. There is a right pleural and mediastinal chest tube. No evidence of an air leak. No evidence of any pneumothorax. Output from the chest tubes have been in the order of 20 mL an hour. She is drowsy, complains of some shortness of breath and surgical pain. Review of Systems 14 point review of systems was completed all pertinent positives and negatives as stated in the HPI Past Medical History Past Medical History: CVA/TIA, Hyperlipidemia, Hypertension, Musculoskeletal Disorder, Thyroid Disorder Additional Past Medical History / Comment(s): Calcified aortic valve/bicuspid valve with a valve area of 0.5 cm, single-vessel coronary artery disease, history of CVA with right-sided blindness, hypertension, hyperlipidemia, back & right hip pain, hypothyroidism History of Any Multi-Drug Resistant Organisms: None Reported Past Surgical History: Section, Heart Catheterization Additional Past Surgical History / Comment(s): anibal feet,rt hand,c sect x2,breast bx Past Anesthesia/Blood Transfusion Reactions: No Reported Reaction Additional Past Anesthesia/Blood Transfusion Reaction / Comm: no hx blood transfusion Smoking Status: Former smoker - Past Family History Mother Family Medical History: Cancer Additional Family Medical History / Comment(s): cervical Sister(s) Family Medical History: Cancer Additional Family Medical History / Comment(s): breast Father Family Medical History: Cancer Additional Family Medical History / Comment(s): colon Medications and Allergies Home Medications Medication Instructions Recorded Confirmed Type Aspirin EC [Ecotrin Low Dose] 81 mg PO HS 12/12/20 12/26/20 History Atorvastatin [Lipitor] 40 mg PO HS 12/13/20 12/26/20 History Baclofen 10 mg PO HS 12/13/20 12/26/20 History HYDROcodone/APAP 5-325MG [[place] 1 tab PO BID PRN 12/13/20 12/26/20 History 5-325] Ibuprofen [Motrin] 800 mg PO BID PRN 12/13/20 12/26/20 History Levothyroxine Sodium [Synthroid] 25 mcg PO HS 12/13/20 12/26/20 History Metoprolol Tartrate [Lopressor] 12.5 mg PO BID 12/13/20 12/26/20 History Sertraline [Zoloft] 25 mg PO HS 12/13/20 12/26/20 History amLODIPine [Norvasc] 5 mg PO HS 12/13/20 12/26/20 History Allergies Allergy/AdvReac Type Severity Reaction Status Date / Time No Known Allergies Allergy Verified 12/26/20 06:04 Surgical - Exam Vital Signs Temp Pulse Resp BP Pulse Ox 97.9 F 53 L 18 135/69 97 12/26/20 06:07 12/26/20 06:07 12/26/20 06:07 12/26/20 06:07 12/26/20 06:07 General appearance: The patient is alert, oriented, on BiPAP. HET: Head is normocephalic and atraumatic. Neck: Supple without lymphadenopathy. Trachea midline. Heart: S1 S2. Regular rate and rhythm. Lungs: No crackles or wheezes are heard. Chest: Normal chest wall expansion, with right pleural and mediastinal chest tube Abdomen: Soft, nontender, nondistended. Extremities: Bilateral palpable femoral and pedal pulses. DARBY hose in place. Neurological: Alert and oriented 3. No focal deficits. Results - Labs 12/29/20 04:40 12/29/20 04:40 Abnormal Lab Results - Last 24 Hours (Table) 12/28/20 12/28/20 12/28/20 Range/Units 04:00 04:25 07:28 WBC (3.8-10.6) k/uL RBC (3.80-5.40) m/uL Hgb (11.4-16.0) gm/dL Hct (34.0-46.0) % RDW (11.5-15.5) % Plt Count (150-450) k/uL Neutrophils # (1.3-7.7) k/uL Lymphocytes # (1.0-4.8) k/uL PT (9.0-12.0) sec INR (<1.2) APTT (22.0-30.0) sec ABG pO2 70 L (83-108) mmHg ABG HCO3 (21-25) mmol/L ABG Total CO2 25 H (19-24) mmol/L ABG O2 Saturation 93.4 L (94-97) % ABG Lactic Acid (0.5-1.6) mmol/L BUN (7-17) mg/dL Creatinine (0.52-1.04) mg/dL Glucose (74-99) mg/dL POC Glucose (mg/dL) (75-99) mg/dL Plasma Lactic Acid Iraj (0.7-2.0) mmol/L Calcium (8.4-10.2) mg/dL Total Bilirubin (0.2-1.3) mg/dL AST (14-36) U/L ALT (4-34) U/L Alkaline Phosphatase (38-126) U/L Total Protein (6.3-8.2) g/dL Amylase <30 L (30-110) U/L Procalcitonin (0.02-0.09) ng/mL Crossmatch See Detail 12/28/20 12/28/2021 Range/Units 09:23 09:40 09:40 WBC 18.7 H (3.8-10.6) k/uL RBC 2.58 L (3.80-5.40) m/uL Hgb 8.1 L (11.4-16.0) gm/dL Hct 23.4 L (34.0-46.0) % RDW 16.2 H (11.5-15.5) % Plt Count 124 L (150-450) k/uL Neutrophils # (1.3-7.7) k/uL Lymphocytes # (1.0-4.8) k/uL PT (9.0-12.0) sec INR (<1.2) APTT (22.0-30.0) sec ABG pO2 (83-108) mmHg ABG HCO3 (21-25) mmol/L ABG Total CO2 (19-24) mmol/L ABG O2 Saturation (94-97) % ABG Lactic Acid 4.4 H* (0.5-1.6) mmol/L BUN (7-17) mg/dL Creatinine (0.52-1.04) mg/dL Glucose (74-99) mg/dL POC Glucose (mg/dL) 172 H (75-99) mg/dL Plasma Lactic Acid Iraj (0.7-2.0) mmol/L Calcium (8.4-10.2) mg/dL Total Bilirubin (0.2-1.3) mg/dL AST (14-36) U/L ALT (4-34) U/L Alkaline Phosphatase (38-126) U/L Total Protein (6.3-8.2) g/dL Amylase (30-110) U/L Procalcitonin (0.02-0.09) ng/mL Crossmatch 12/28/20 12/28/20 12/28/20 Range/Units 10:12 11:58 12:10 WBC (3.8-10.6) k/uL RBC (3.80-5.40) m/uL Hgb (11.4-16.0) gm/dL Hct (34.0-46.0) % RDW (11.5-15.5) % Plt Count (150-450) k/uL Neutrophils # (1.3-7.7) k/uL Lymphocytes # (1.0-4.8) k/uL PT (9.0-12.0) sec INR (<1.2) APTT (22.0-30.0) sec ABG pO2 (83-108) mmHg ABG HCO3 (21-25) mmol/L ABG Total CO2 (19-24) mmol/L ABG O2 Saturation (94-97) % ABG Lactic Acid (0.5-1.6) mmol/L BUN (7-17) mg/dL Creatinine (0.52-1.04) mg/dL Glucose (74-99) mg/dL POC Glucose (mg/dL) 171 H 158 H (75-99) mg/dL Plasma Lactic Acid Iraj 2.9 H* (0.7-2.0) mmol/L Calcium (8.4-10.2) mg/dL Total Bilirubin (0.2-1.3) mg/dL AST (14-36) U/L ALT (4-34) U/L Alkaline Phosphatase (38-126) U/L Total Protein (6.3-8.2) g/dL Amylase (30-110) U/L Procalcitonin (0.02-0.09) ng/mL Crossmatch 12/28/20 12/28/20 12/28/20 Range/Units 12:30 12:48 15:00 WBC (3.8-10.6) k/uL RBC (3.80-5.40) m/uL Hgb (11.4-16.0) gm/dL Hct (34.0-46.0) % RDW (11.5-15.5) % Plt Count (150-450) k/uL Neutrophils # (1.3-7.7) k/uL Lymphocytes # (1.0-4.8) k/uL PT (9.0-12.0) sec INR (<1.2) APTT (22.0-30.0) sec ABG pO2 71 L (83-108) mmHg ABG HCO3 27 H (21-25) mmol/L ABG Total CO2 29 H (19-24) mmol/L ABG O2 Saturation (94-97) % ABG Lactic Acid 2.6 H* (0.5-1.6) mmol/L BUN (7-17) mg/dL Creatinine (0.52-1.04) mg/dL Glucose (74-99) mg/dL POC Glucose (mg/dL) 141 H (75-99) mg/dL Plasma Lactic Acid Iraj (0.7-2.0) mmol/L Calcium (8.4-10.2) mg/dL Total Bilirubin (0.2-1.3) mg/dL AST (14-36) U/L ALT (4-34) U/L Alkaline Phosphatase (38-126) U/L Total Protein (6.3-8.2) g/dL Amylase (30-110) U/L Procalcitonin (0.02-0.09) ng/mL Crossmatch 12/28/20 12/28/20 12/28/20 Range/Units 15:19 15:19 16:58 WBC (3.8-10.6) k/uL RBC (3.80-5.40) m/uL Hgb (11.4-16.0) gm/dL Hct (34.0-46.0) % RDW (11.5-15.5) % Plt Count (150-450) k/uL Neutrophils # (1.3-7.7) k/uL Lymphocytes # (1.0-4.8) k/uL PT (9.0-12.0) sec INR (<1.2) APTT (22.0-30.0) sec ABG pO2 (83-108) mmHg ABG HCO3 (21-25) mmol/L ABG Total CO2 (19-24) mmol/L ABG O2 Saturation (94-97) % ABG Lactic Acid (0.5-1.6) mmol/L BUN (7-17) mg/dL Creatinine (0.52-1.04) mg/dL Glucose (74-99) mg/dL POC Glucose (mg/dL) 146 H (75-99) mg/dL Plasma Lactic Acid Iraj 2.2 H* (0.7-2.0) mmol/L Calcium (8.4-10.2) mg/dL Total Bilirubin (0.2-1.3) mg/dL AST (14-36) U/L ALT (4-34) U/L Alkaline Phosphatase (38-126) U/L Total Protein (6.3-8.2) g/dL Amylase (30-110) U/L Procalcitonin 0.26 H (0.02-0.09) ng/mL Crossmatch 12/28/20 12/28/20 12/28/20 Range/Units 18:46 19:00 20:06 WBC (3.8-10.6) k/uL RBC (3.80-5.40) m/uL Hgb (11.4-16.0) gm/dL Hct (34.0-46.0) % RDW (11.5-15.5) % Plt Count (150-450) k/uL Neutrophils # (1.3-7.7) k/uL Lymphocytes # (1.0-4.8) k/uL PT (9.0-12.0) sec INR (<1.2) APTT (22.0-30.0) sec ABG pO2 (83-108) mmHg ABG HCO3 (21-25) mmol/L ABG Total CO2 (19-24) mmol/L ABG O2 Saturation (94-97) % ABG Lactic Acid (0.5-1.6) mmol/L BUN 48 H (7-17) mg/dL Creatinine 2.15 H (0.52-1.04) mg/dL Glucose 130 H (74-99) mg/dL POC Glucose (mg/dL) 151 H 149 H (75-99) mg/dL Plasma Lactic Acid Iraj (0.7-2.0) mmol/L Calcium (8.4-10.2) mg/dL Total Bilirubin 2.3 H (0.2-1.3) mg/dL AST 03928 H (14-36) U/L ALT 4387 H (4-34) U/L Alkaline Phosphatase 35 L (38-126) U/L Total Protein 5.4 L (6.3-8.2) g/dL Amylase (30-110) U/L Procalcitonin (0.02-0.09) ng/mL Crossmatch 12/28/20 12/28/20 12/29/20 Range/Units 21:55 23:59 01:59 WBC (3.8-10.6) k/uL RBC (3.80-5.40) m/uL Hgb (11.4-16.0) gm/dL Hct (34.0-46.0) % RDW (11.5-15.5) % Plt Count (150-450) k/uL Neutrophils # (1.3-7.7) k/uL Lymphocytes # (1.0-4.8) k/uL PT (9.0-12.0) sec INR (<1.2) APTT (22.0-30.0) sec ABG pO2 (83-108) mmHg ABG HCO3 (21-25) mmol/L ABG Total CO2 (19-24) mmol/L ABG O2 Saturation (94-97) % ABG Lactic Acid (0.5-1.6) mmol/L BUN (7-17) mg/dL Creatinine (0.52-1.04) mg/dL Glucose (74-99) mg/dL POC Glucose (mg/dL) 147 H 136 H 143 H (75-99) mg/dL Plasma Lactic Acid Iraj (0.7-2.0) mmol/L Calcium (8.4-10.2) mg/dL Total Bilirubin (0.2-1.3) mg/dL AST (14-36) U/L ALT (4-34) U/L Alkaline Phosphatase (38-126) U/L Total Protein (6.3-8.2) g/dL Amylase (30-110) U/L Procalcitonin (0.02-0.09) ng/mL Crossmatch 12/29/20 12/29/20 12/29/20 Range/Units 04:40 04:40 04:42 WBC 14.6 H (3.8-10.6) k/uL RBC 1.94 L (3.80-5.40) m/uL Hgb 6.0 L* D (11.4-16.0) gm/dL Hct 17.9 L* (34.0-46.0) % RDW 16.7 H (11.5-15.5) % Plt Count 26 L D (150-450) k/uL Neutrophils # 12.8 H (1.3-7.7) k/uL Lymphocytes # 0.6 L (1.0-4.8) k/uL PT (9.0-12.0) sec INR (<1.2) APTT (22.0-30.0) sec ABG pO2 (83-108) mmHg ABG HCO3 (21-25) mmol/L ABG Total CO2 (19-24) mmol/L ABG O2 Saturation (94-97) % ABG Lactic Acid (0.5-1.6) mmol/L BUN 53 H (7-17) mg/dL Creatinine 2.77 H (0.52-1.04) mg/dL Glucose 125 H (74-99) mg/dL POC Glucose (mg/dL) 146 H (75-99) mg/dL Plasma Lactic Acid Iraj (0.7-2.0) mmol/L Calcium 7.8 L (8.4-10.2) mg/dL Total Bilirubin 3.0 H (0.2-1.3) mg/dL AST 09630 H (14-36) U/L ALT 3572 H (4-34) U/L Alkaline Phosphatase (38-126) U/L Total Protein 5.4 L (6.3-8.2) g/dL Amylase (30-110) U/L Procalcitonin (0.02-0.09) ng/mL Crossmatch 12/29/20 12/29/20 Range/Units 05:53 07:12 WBC (3.8-10.6) k/uL RBC (3.80-5.40) m/uL Hgb (11.4-16.0) gm/dL Hct (34.0-46.0) % RDW (11.5-15.5) % Plt Count (150-450) k/uL Neutrophils # (1.3-7.7) k/uL Lymphocytes # (1.0-4.8) k/uL PT 32.1 H (9.0-12.0) sec INR 3.3 H (<1.2) APTT 37.7 H (22.0-30.0) sec ABG pO2 (83-108) mmHg ABG HCO3 (21-25) mmol/L ABG Total CO2 (19-24) mmol/L ABG O2 Saturation (94-97) % ABG Lactic Acid (0.5-1.6) mmol/L BUN (7-17) mg/dL Creatinine (0.52-1.04) mg/dL Glucose (74-99) mg/dL POC Glucose (mg/dL) 145 H (75-99) mg/dL Plasma Lactic Acid Iraj (0.7-2.0) mmol/L Calcium (8.4-10.2) mg/dL Total Bilirubin (0.2-1.3) mg/dL AST (14-36) U/L ALT (4-34) U/L Alkaline Phosphatase (38-126) U/L Total Protein (6.3-8.2) g/dL Amylase (30-110) U/L Procalcitonin (0.02-0.09) ng/mL Crossmatch Diabetes panel 12/28/20 12/29/20 Range/Units 19:00 04:40 Sodium 142 139 (137-145) mmol/L Potassium 4.7 4.7 (3.5-5.1) mmol/L Chloride 107 105 (98-107) mmol/L Carbon Dioxide 24 22 (22-30) mmol/L BUN 48 H 53 H (7-17) mg/dL Creatinine 2.15 H 2.77 H (0.52-1.04) mg/dL Glucose 130 H 125 H (74-99) mg/dL Calcium 8.5 7.8 L (8.4-10.2) mg/dL AST 32785 H 85296 H (14-36) U/L ALT 4387 H 3572 H (4-34) U/L Alkaline Phosphatase 35 L 41 (38-126) U/L Total Protein 5.4 L 5.4 L (6.3-8.2) g/dL Albumin 4.0 4.0 (3.5-5.0) g/dL Calcium panel 12/28/20 12/29/20 Range/Units 19:00 04:40 Calcium 8.5 7.8 L (8.4-10.2) mg/dL Albumin 4.0 4.0 (3.5-5.0) g/dL Pituitary panel 12/28/20 12/29/20 Range/Units 19:00 04:40 Sodium 142 139 (137-145) mmol/L Potassium 4.7 4.7 (3.5-5.1) mmol/L Chloride 107 105 (98-107) mmol/L Carbon Dioxide 24 22 (22-30) mmol/L BUN 48 H 53 H (7-17) mg/dL Creatinine 2.15 H 2.77 H (0.52-1.04) mg/dL Glucose 130 H 125 H (74-99) mg/dL Calcium 8.5 7.8 L (8.4-10.2) mg/dL Adrenal panel 12/28/20 12/29/20 Range/Units 19:00 04:40 Sodium 142 139 (137-145) mmol/L Potassium 4.7 4.7 (3.5-5.1) mmol/L Chloride 107 105 (98-107) mmol/L Carbon Dioxide 24 22 (22-30) mmol/L BUN 48 H 53 H (7-17) mg/dL Creatinine 2.15 H 2.77 H (0.52-1.04) mg/dL Glucose 130 H 125 H (74-99) mg/dL Calcium 8.5 7.8 L (8.4-10.2) mg/dL Total Bilirubin 2.3 H 3.0 H (0.2-1.3) mg/dL AST 85291 H 25731 H (14-36) U/L ALT 4387 H 3572 H (4-34) U/L Alkaline Phosphatase 35 L 41 (38-126) U/L Total Protein 5.4 L 5.4 L (6.3-8.2) g/dL Albumin 4.0 4.0 (3.5-5.0) g/dL - Imaging Chest x-ray: report reviewed (Impression states postoperative change with bilateral infiltrate and pleural effusion stable. Less than 5% right apical pneumothorax) Assessment and Plan Assessment: 1. Acute kidney injury, oliguric with signs of fluid overload 2. Status post aortic valve replacement and single-vessel bypass surgery 3. Lactic acidosis, resolved 4. Hypertension 5. Hyperlipidemia 6. Hypothyroidism 7. History of CVA Plan: Agree with vitamin K, FFP, platelets and PRBC transfusion. Plan will be for temporary femoral hemodialysis catheter placement today. Hemodialysis as ordered per nephrology. Thank you for this consultation and allowing us to take part in the plan of care of your patient The impression and plan of care has been dictated as directed. Dr. Spring I performed a history and examination of this patient, discussed the same with the dictator. I agree with the dictator's note ,documented as a scribe. Any additional findings or plans will be noted. <Nick Antunez - Last Filed: 12/29/20 12:13> Surgical - Exam Osteopathic Statement: *. No significant issues noted on an osteopathic struc tural exam other than those noted in the History and Physical/Consult. Vital Signs Temp Pulse Resp BP Pulse Ox 97.9 F 53 L 18 135/69 97 12/26/20 06:07 12/26/20 06:07 12/26/20 06:07 12/26/20 06:07 12/26/20 06:07 Results - Labs 12/29/20 04:40 12/29/20 04:40 Abnormal Lab Results - Last 24 Hours (Table) 12/28/20 12/28/20 12/28/20 Range/Units 04:25 12:10 12:30 WBC (3.8-10.6) k/uL RBC (3.80-5.40) m/uL Hgb (11.4-16.0) gm/dL Hct (34.0-46.0) % RDW (11.5-15.5) % Plt Count (150-450) k/uL Neutrophils # (1.3-7.7) k/uL Lymphocytes # (1.0-4.8) k/uL PT (9.0-12.0) sec INR (<1.2) APTT (22.0-30.0) sec ABG pO2 (83-108) mmHg ABG HCO3 (21-25) mmol/L ABG Total CO2 (19-24) mmol/L ABG Lactic Acid 2.6 H* (0.5-1.6) mmol/L BUN (7-17) mg/dL Creatinine (0.52-1.04) mg/dL Glucose (74-99) mg/dL POC Glucose (mg/dL) (75-99) mg/dL Plasma Lactic Acid Iraj 2.9 H* (0.7-2.0) mmol/L Calcium (8.4-10.2) mg/dL Ionized Calcium Beatrice (4.5-5.3) mg/dL Total Bilirubin (0.2-1.3) mg/dL AST (14-36) U/L ALT (4-34) U/L Alkaline Phosphatase (38-126) U/L Total Protein (6.3-8.2) g/dL Procalcitonin (0.02-0.09) ng/mL Crossmatch See Detail 12/28/20 12/28/20 12/28/20 Range/Units 12:48 15:00 15:19 WBC (3.8-10.6) k/uL RBC (3.80-5.40) m/uL Hgb (11.4-16.0) gm/dL Hct (34.0-46.0) % RDW (11.5-15.5) % Plt Count (150-450) k/uL Neutrophils # (1.3-7.7) k/uL Lymphocytes # (1.0-4.8) k/uL PT (9.0-12.0) sec INR (<1.2) APTT (22.0-30.0) sec ABG pO2 71 L (83-108) mmHg ABG HCO3 27 H (21-25) mmol/L ABG Total CO2 29 H (19-24) mmol/L ABG Lactic Acid (0.5-1.6) mmol/L BUN (7-17) mg/dL Creatinine (0.52-1.04) mg/dL Glucose (74-99) mg/dL POC Glucose (mg/dL) 141 H (75-99) mg/dL Plasma Lactic Acid Iraj 2.2 H* (0.7-2.0) mmol/L Calcium (8.4-10.2) mg/dL Ionized Calcium Beatrice (4.5-5.3) mg/dL Total Bilirubin (0.2-1.3) mg/dL AST (14-36) U/L ALT (4-34) U/L Alkaline Phosphatase (38-126) U/L Total Protein (6.3-8.2) g/dL Procalcitonin (0.02-0.09) ng/mL Crossmatch 12/28/20 12/28/20 12/28/20 Range/Units 15:19 16:58 18:46 WBC (3.8-10.6) k/uL RBC (3.80-5.40) m/uL Hgb (11.4-16.0) gm/dL Hct (34.0-46.0) % RDW (11.5-15.5) % Plt Count (150-450) k/uL Neutrophils # (1.3-7.7) k/uL Lymphocytes # (1.0-4.8) k/uL PT (9.0-12.0) sec INR (<1.2) APTT (22.0-30.0) sec ABG pO2 (83-108) mmHg ABG HCO3 (21-25) mmol/L ABG Total CO2 (19-24) mmol/L ABG Lactic Acid (0.5-1.6) mmol/L BUN (7-17) mg/dL Creatinine (0.52-1.04) mg/dL Glucose (74-99) mg/dL POC Glucose (mg/dL) 146 H 151 H (75-99) mg/dL Plasma Lactic Acid Iraj (0.7-2.0) mmol/L Calcium (8.4-10.2) mg/dL Ionized Calcium Beatrice (4.5-5.3) mg/dL Total Bilirubin (0.2-1.3) mg/dL AST (14-36) U/L ALT (4-34) U/L Alkaline Phosphatase (38-126) U/L Total Protein (6.3-8.2) g/dL Procalcitonin 0.26 H (0.02-0.09) ng/mL Crossmatch 12/28/20 12/28/20 12/28/20 Range/Units 19:00 20:06 21:55 WBC (3.8-10.6) k/uL RBC (3.80-5.40) m/uL Hgb (11.4-16.0) gm/dL Hct (34.0-46.0) % RDW (11.5-15.5) % Plt Count (150-450) k/uL Neutrophils # (1.3-7.7) k/uL Lymphocytes # (1.0-4.8) k/uL PT (9.0-12.0) sec INR (<1.2) APTT (22.0-30.0) sec ABG pO2 (83-108) mmHg ABG HCO3 (21-25) mmol/L ABG Total CO2 (19-24) mmol/L ABG Lactic Acid (0.5-1.6) mmol/L BUN 48 H (7-17) mg/dL Creatinine 2.15 H (0.52-1.04) mg/dL Glucose 130 H (74-99) mg/dL POC Glucose (mg/dL) 149 H 147 H (75-99) mg/dL Plasma Lactic Acid Iraj (0.7-2.0) mmol/L Calcium (8.4-10.2) mg/dL Ionized Calcium Beatrice (4.5-5.3) mg/dL Total Bilirubin 2.3 H (0.2-1.3) mg/dL AST 79560 H (14-36) U/L ALT 4387 H (4-34) U/L Alkaline Phosphatase 35 L (38-126) U/L Total Protein 5.4 L (6.3-8.2) g/dL Procalcitonin (0.02-0.09) ng/mL Crossmatch 12/28/20 12/29/20 12/29/20 Range/Units 23:59 01:59 04:40 WBC 14.6 H (3.8-10.6) k/uL RBC 1.94 L (3.80-5.40) m/uL Hgb 6.0 L* D (11.4-16.0) gm/dL Hct 17.9 L* (34.0-46.0) % RDW 16.7 H (11.5-15.5) % Plt Count 26 L D (150-450) k/uL Neutrophils # 12.8 H (1.3-7.7) k/uL Lymphocytes # 0.6 L (1.0-4.8) k/uL PT (9.0-12.0) sec INR (<1.2) APTT (22.0-30.0) sec ABG pO2 (83-108) mmHg ABG HCO3 (21-25) mmol/L ABG Total CO2 (19-24) mmol/L ABG Lactic Acid (0.5-1.6) mmol/L BUN (7-17) mg/dL Creatinine (0.52-1.04) mg/dL Glucose (74-99) mg/dL POC Glucose (mg/dL) 136 H 143 H (75-99) mg/dL Plasma Lactic Acid Iraj (0.7-2.0) mmol/L Calcium (8.4-10.2) mg/dL Ionized Calcium Beatrice (4.5-5.3) mg/dL Total Bilirubin (0.2-1.3) mg/dL AST (14-36) U/L ALT (4-34) U/L Alkaline Phosphatase (38-126) U/L Total Protein (6.3-8.2) g/dL Procalcitonin (0.02-0.09) ng/mL Crossmatch 12/29/20 12/29/20 12/29/20 Range/Units 04:40 04:42 05:53 WBC (3.8-10.6) k/uL RBC (3.80-5.40) m/uL Hgb (11.4-16.0) gm/dL Hct (34.0-46.0) % RDW (11.5-15.5) % Plt Count (150-450) k/uL Neutrophils # (1.3-7.7) k/uL Lymphocytes # (1.0-4.8) k/uL PT (9.0-12.0) sec INR (<1.2) APTT (22.0-30.0) sec ABG pO2 (83-108) mmHg ABG HCO3 (21-25) mmol/L ABG Total CO2 (19-24) mmol/L ABG Lactic Acid (0.5-1.6) mmol/L BUN 53 H (7-17) mg/dL Creatinine 2.77 H (0.52-1.04) mg/dL Glucose 125 H (74-99) mg/dL POC Glucose (mg/dL) 146 H 145 H (75-99) mg/dL Plasma Lactic Acid Iraj (0.7-2.0) mmol/L Calcium 7.8 L (8.4-10.2) mg/dL Ionized Calcium Beatrice (4.5-5.3) mg/dL Total Bilirubin 3.0 H (0.2-1.3) mg/dL AST 79084 H (14-36) U/L ALT 3572 H (4-34) U/L Alkaline Phosphatase (38-126) U/L Total Protein 5.4 L (6.3-8.2) g/dL Procalcitonin (0.02-0.09) ng/mL Crossmatch 12/29/20 12/29/20 12/29/20 Range/Units 07:12 09:07 11:10 WBC (3.8-10.6) k/uL RBC (3.80-5.40) m/uL Hgb (11.4-16.0) gm/dL Hct (34.0-46.0) % RDW (11.5-15.5) % Plt Count (150-450) k/uL Neutrophils # (1.3-7.7) k/uL Lymphocytes # (1.0-4.8) k/uL PT 32.1 H (9.0-12.0) sec INR 3.3 H (<1.2) APTT 37.7 H (22.0-30.0) sec ABG pO2 (83-108) mmHg ABG HCO3 (21-25) mmol/L ABG Total CO2 (19-24) mmol/L ABG Lactic Acid (0.5-1.6) mmol/L BUN (7-17) mg/dL Creatinine (0.52-1.04) mg/dL Glucose (74-99) mg/dL POC Glucose (mg/dL) 127 H (75-99) mg/dL Plasma Lactic Acid Iraj (0.7-2.0) mmol/L Calcium (8.4-10.2) mg/dL Ionized Calcium Beatrice 3.8 L (4.5-5.3) mg/dL Total Bilirubin (0.2-1.3) mg/dL AST (14-36) U/L ALT (4-34) U/L Alkaline Phosphatase (38-126) U/L Total Protein (6.3-8.2) g/dL Procalcitonin (0.02-0.09) ng/mL Crossmatch 12/29/20 Range/Units 12:09 WBC (3.8-10.6) k/uL RBC (3.80-5.40) m/uL Hgb (11.4-16.0) gm/dL Hct (34.0-46.0) % RDW (11.5-15.5) % Plt Count (150-450) k/uL Neutrophils # (1.3-7.7) k/uL Lymphocytes # (1.0-4.8) k/uL PT (9.0-12.0) sec INR (<1.2) APTT (22.0-30.0) sec ABG pO2 (83-108) mmHg ABG HCO3 (21-25) mmol/L ABG Total CO2 (19-24) mmol/L ABG Lactic Acid (0.5-1.6) mmol/L BUN (7-17) mg/dL Creatinine (0.52-1.04) mg/dL Glucose (74-99) mg/dL POC Glucose (mg/dL) 117 H (75-99) mg/dL Plasma Lactic Acid Iraj (0.7-2.0) mmol/L Calcium (8.4-10.2) mg/dL Ionized Calcium Beatrice (4.5-5.3) mg/dL Total Bilirubin (0.2-1.3) mg/dL AST (14-36) U/L ALT (4-34) U/L Alkaline Phosphatase (38-126) U/L Total Protein (6.3-8.2) g/dL Procalcitonin (0.02-0.09) ng/mL Crossmatch Diabetes panel 12/28/20 12/29/20 Range/Units 19:00 04:40 Sodium 142 139 (137-145) mmol/L Potassium 4.7 4.7 (3.5-5.1) mmol/L Chloride 107 105 (98-107) mmol/L Carbon Dioxide 24 22 (22-30) mmol/L BUN 48 H 53 H (7-17) mg/dL Creatinine 2.15 H 2.77 H (0.52-1.04) mg/dL Glucose 130 H 125 H (74-99) mg/dL Calcium 8.5 7.8 L (8.4-10.2) mg/dL AST 50792 H 11111 H (14-36) U/L ALT 4387 H 3572 H (4-34) U/L Alkaline Phosphatase 35 L 41 (38-126) U/L Total Protein 5.4 L 5.4 L (6.3-8.2) g/dL Albumin 4.0 4.0 (3.5-5.0) g/dL Calcium panel 12/28/20 12/29/20 12/29/20 Range/Units 19:00 04:40 11:10 Calcium 8.5 7.8 L (8.4-10.2) mg/dL Ionized Calcium Beatrice Cancelled 3.8 L Albumin 4.0 4.0 (3.5-5.0) g/dL Pituitary panel 12/28/20 12/29/20 Range/Units 19:00 04:40 Sodium 142 139 (137-145) mmol/L Potassium 4.7 4.7 (3.5-5.1) mmol/L Chloride 107 105 (98-107) mmol/L Carbon Dioxide 24 22 (22-30) mmol/L BUN 48 H 53 H (7-17) mg/dL Creatinine 2.15 H 2.77 H (0.52-1.04) mg/dL Glucose 130 H 125 H (74-99) mg/dL Calcium 8.5 7.8 L (8.4-10.2) mg/dL Adrenal panel 12/28/20 12/29/20 Range/Units 19:00 04:40 Sodium 142 139 (137-145) mmol/L Potassium 4.7 4.7 (3.5-5.1) mmol/L Chloride 107 105 (98-107) mmol/L Carbon Dioxide 24 22 (22-30) mmol/L BUN 48 H 53 H (7-17) mg/dL Creatinine 2.15 H 2.77 H (0.52-1.04) mg/dL Glucose 130 H 125 H (74-99) mg/dL Calcium 8.5 7.8 L (8.4-10.2) mg/dL Total Bilirubin 2.3 H 3.0 H (0.2-1.3) mg/dL AST 03150 H 50517 H (14-36) U/L ALT 4387 H 3572 H (4-34) U/L Alkaline Phosphatase 35 L 41 (38-126) U/L Total Protein 5.4 L 5.4 L (6.3-8.2) g/dL Albumin 4.0 4.0 (3.5-5.0) g/dL
[2020-12-29 12:10] LABS: Glucose,Whole Blood 117 mg/dL (75-99)
--- NOTE | 2020-12-29 12:12 | P.OP ---
Date of Procedure: 12/29/20 Preoperative Diagnosis: Acute renal failure, in need of urgent hemodialysis. Postoperative Diagnosis: Same. Procedure(s) Performed: Ultrasound-guided cannulation of the right femoral vein for placement of a non- tunneled hemodialysis catheter Anesthesia: local Surgeon: Nick Antunez Estimated Blood Loss (ml): 3 Pathology: none sent Condition: stable Disposition: no change Indications for Procedure: Patient is a 65-year-old female status post cardiac valve replacement and bypass who is sparing seeing acute renal failure. It is deemed that the patient would benefit by hemodialysis. Patient is thus offered a non-tunneled hemodialysis catheter. Description of Procedure: Patient was placed in the supine position with the right femoral area sterilely prepped and draped in usual manner. Ultrasound was utilized to identify the right common femoral vein which is found to be normally patent/compressible without evidence of visible thrombus. 1% Xylocaine was utilized for local anesthesia tissues overlying the femoral vein. Through this anesthetized area a multipurpose needle was utilized to cannulate the vein. Once cannulated Softip guidewire is advanced into the vein. The needle was withdrawn. Vascular dilators were advanced and withdrawn from over the guidewire. Eventually a non-tunneled hemodialysis catheter was advanced over the guidewire. The guidewire was withdrawn. Both ports of the catheter easily returned blood and there were flushed with heparinized saline solution. The catheter was secured to skin with nylon suture. Dressings were applied. Patient tolerated procedure well. Plan - Discharge Summary Discharge Rx Participant: Yes New Discharge Prescriptions: No Action Aspirin EC [Ecotrin Low Dose] 81 mg PO HS HYDROcodone/APAP 5-325MG [[place] 5-325] 1 tab PO BID PRN PRN Reason: Pain amLODIPine [Norvasc] 5 mg PO HS Metoprolol Tartrate [Lopressor] 12.5 mg PO BID Sertraline [Zoloft] 25 mg PO HS Baclofen 10 mg PO HS Atorvastatin [Lipitor] 40 mg PO HS Levothyroxine Sodium [Synthroid] 25 mcg PO HS Ibuprofen [Motrin] 800 mg PO BID PRN PRN Reason: Pain Discharge Medication List Aspirin EC [Ecotrin Low Dose] 81 mg PO HS 12/12/20 [History] Atorvastatin [Lipitor] 40 mg PO HS 12/13/20 [History] Baclofen 10 mg PO HS 12/13/20 [History] HYDROcodone/APAP 5-325MG [[place] 5-325] 1 tab PO BID PRN 12/13/20 [History] Ibuprofen [Motrin] 800 mg PO BID PRN 12/13/20 [History] Levothyroxine Sodium [Synthroid] 25 mcg PO HS 12/13/20 [History] Metoprolol Tartrate [Lopressor] 12.5 mg PO BID 12/13/20 [History] Sertraline [Zoloft] 25 mg PO HS 12/13/20 [History] amLODIPine [Norvasc] 5 mg PO HS 12/13/20 [History] Follow up Appointment(s)/Referral(s): Sariah Lee MD [STAFF PHYSICIAN] - 1 Week [facility], [NON-STAFF] - 1-2 Days
[2020-12-29] MEDS: SODIUM CHLORIDE 0.9% 1,000 ML IV SCH (12:20)
--- NOTE | 2020-12-29 12:52 | P.PN ---
Subjective Progress Note Date: 12/29/20 HISTORY OF PRESENT ILLNESS: 12/27/2020 This is a 65-year-old female with a past medical history significant for CVA/TIA, hypertension, hyperlipidemia, nicotine dependence, and hypothyroidism. Patient follows in the office with Dr. Lee. We have been asked to see the patient in consultation for postoperative care. Patient examined this morning in the intensive care unit. Patient is status post aortic valve replacement and CABG 1: SVG to RCA. Postop day #1. Patient is sitting up in the chair. Patient is hemodynamically stable and not requiring any vasopressor support. Patient is on 5 L nasal cannula with oxygen saturations greater than 92%. The patient has a weak nonproductive cough. She denies chest pain or pressure. She denies shortness of breath. She reports nausea this morning. No episodes of emesis. She is receiving 500cc albumin at the time of examination. Telemetry reveals sinus mechanism. Chest xray small residual right apical pneumothorax may be present. Cardiomegaly. Small left pleural effusion. Laboratory data: WBC 15.2. Hemoglobin 8.0. Platelet count 160. Sodium 137. Potassium 4.8. BUN 19. Creatinine 0.78. Magnesium 2.2. Current home cardiac medications include amlodipine 5 mg daily, metoprolol tartrate 12.5 mg twice a day, Lipitor 40 mg daily, and aspirin 81 mg daily FIDEL: 12/15/2020 revealing severe aortic stenosis which is calcific in nature with mild eccentric aortic regurgitation. Mild mitral and tricuspid regurgitation. Biatrial enlargement. No clot in left atrial appendage. No PFO. Normal LV function. Cardiac catheterization: 12/15/2020 revealing 80% lesion of RCA. 12/28/2020 Patient is s/p CABG x 1 and AVR. POD #1. Patient examined this morning in the ICU. Patient developed hypotension, lactic acidosis, shortness of breath, and increasing oxygen requirement overnight. Patient was placed on a BiPAP. She received sodium bicarb. She is currently on dopamine and Primacor. Hemoglobin is 6.8. Patient received 1 unit packed RBCs. Blood pressure 102/39. Heart rate in the 70s. 12/29/2020 Patient examined this morning in the intensive care unit. Patient remains on a bipap. Overnight, the patient had decreased urine output. Patient was given IV lasix and subsequently started on a lasix drip. Patient with worsening hypotension and has been started on vasopressors. Patient also went into afib with RVR this morning. She has been started on Digoxin. Hemoglobin 6.0. Platelet count 26. INR 3.3. BUN 53. Creatinine 2.77. AST 11,442. ALT 3572. Patient is to receive a hemodialysis catheter today and will be started on hemodialysis. PHYSICAL EXAM: VITAL SIGNS: Reviewed. GENERAL: Well-developed in no acute distress. HEENT: Head is normocephalic. Pupils are equal, round. Sclerae anicteric. Mucous membranes of the mouth are moist. Neck supple. No JVD or thyromegaly LUNGS: Respirations even and unlabored. Lungs diminished bilaterally. HEART: Irregular rate and rhythm. S1 and S2 heard. Chest tube noted with no evidence of air leak. Heart hugger noted. EXTREMITIES: Normal range of motion. No clubbing or cyanosis. Peripheral pulses intact. Trace bilateral lower extremity edema ASSESSMENT: Severe aortic stenosis, s/p bioprosthetic aortic valve replacement, 12/26/2020 Coronary artery disease, s/p CABG x 1 SVG to RCA, 12/26/2020 New onset atrial fibrillation with RVR Acute hypoxic respiratory failure, requiring bipap Thrombocytopenia Coagulopathy, INR 3.3 Acute blood loss anemia Lactic acidosis Transaminitis, suspect secondary to hypotension Acute kidney injury Hypertension Hyperlipidemia CVA with residual right-sided blindness Hypothyroidism Former nicotine dependence PLAN: Continue postoperative management per CTS Continue telemetry monitoring. Digoxin has been started per CTS. Agreeable to no amiodarone due to transaminitis. Statin held due to elevated LFTs Aspirin, plavix, and metoprolol placed on hold Monitor hemoglobin Further recommendations pending patient course Nurse practitioner note has been reviewed by physician. Signing provider agrees with the documented findings, assessment, and plan of care. Objective - Vital Signs Vital signs: Vital Signs Temp 97.2 F L 12/29/20 12:00 Pulse 114 H 12/29/20 12:00 Resp 18 12/29/20 12:00 BP 122/54 12/29/20 12:00 Pulse Ox 98 12/29/20 12:00 Intake & Output 12/28/20 12/29/20 12/29/20 18:59 06:59 18:59 Intake Total 864.205 963.530 6882 Output Total 315 215 3 Balance 549.205 272.143 3503 Weight 70.7 kg Intake: IV 552 802 46 0.9 NaCl 480 480 40 Albumin Human 5% 250 ml 250 In Empty Bag 1 bag @ 250 mls/hr IVPB Q1HR PRN Rx#: [id number] pressure bags 72 72 6 Intake, IV Titration 2.205 160.356 100 Amount Albumin Human 25% 50 ml 50 In Empty Bag 1 bag @ 50 mls/hr IVPB ONCE ONE Rx#: [id number] Furosemide 100 mg In 100 Sodium Chloride 0.9% 90 ml @ 10 MG/HR 10 mls/hr IV .Q10H [facility] Rx#: [id number] Insulin Regular 100 unit 2.205 In Sodium Chloride 0.9% 100 ml @ Per Protocol IV .Q0M [facility] Rx#:[id number] Milrinone-D5w Pmx 20 mg 110.356 In Dextrose/Water 1 100ml .bag @ 0.1 MCG/KG/MIN 1. 998 mls/hr IV .Q24H [facility] Rx#:[id number] Blood Product 310 2930 Ffp 24 Cpd Unit 2623 [id number] Ffp 24 Cpd Unit 307 [id number] Platelet Pheresis Acd-A 0 Pasc 2 Unit [id number] Rc As-1 Unit 0 [id number] Rc As-1 Unit 310 [id number] Output: Chest Tube Drainage 180 170 Right Pleural/Mediastinal 180 170 Urine 135 45 3 Other: Voiding Method Indwelling Catheter Indwelling Catheter Indwelling Catheter ABP, PAP, CO, CI - Last Documented Arterial Blood Pressure 103/47 Pulmonary Artery Pressure 12/5 Cardiac Output 4.2 Cardiac Index 2.6 - Labs CBC & Chem 7: 12/29/20 04:40 12/29/20 04:40 Labs: Abnormal Lab Results - Last 24 Hours (Table) 12/28/20 12/28/20 12/28/20 Range/Units 04:25 12:10 12:30 WBC (3.8-10.6) k/uL RBC (3.80-5.40) m/uL Hgb (11.4-16.0) gm/dL Hct (34.0-46.0) % RDW (11.5-15.5) % Plt Count (150-450) k/uL Neutrophils # (1.3-7.7) k/uL Lymphocytes # (1.0-4.8) k/uL PT (9.0-12.0) sec INR (<1.2) APTT (22.0-30.0) sec ABG pO2 (83-108) mmHg ABG HCO3 (21-25) mmol/L ABG Total CO2 (19-24) mmol/L ABG Lactic Acid 2.6 H* (0.5-1.6) mmol/L BUN (7-17) mg/dL Creatinine (0.52-1.04) mg/dL Glucose (74-99) mg/dL POC Glucose (mg/dL) (75-99) mg/dL Plasma Lactic Acid Iraj 2.9 H* (0.7-2.0) mmol/L Calcium (8.4-10.2) mg/dL Ionized Calcium Beatrice (4.5-5.3) mg/dL Total Bilirubin (0.2-1.3) mg/dL AST (14-36) U/L ALT (4-34) U/L Alkaline Phosphatase (38-126) U/L Total Protein (6.3-8.2) g/dL Procalcitonin (0.02-0.09) ng/mL Crossmatch See Detail 12/28/20 12/28/20 12/28/20 Range/Units 12:48 15:00 15:19 WBC (3.8-10.6) k/uL RBC (3.80-5.40) m/uL Hgb (11.4-16.0) gm/dL Hct (34.0-46.0) % RDW (11.5-15.5) % Plt Count (150-450) k/uL Neutrophils # (1.3-7.7) k/uL Lymphocytes # (1.0-4.8) k/uL PT (9.0-12.0) sec INR (<1.2) APTT (22.0-30.0) sec ABG pO2 71 L (83-108) mmHg ABG HCO3 27 H (21-25) mmol/L ABG Total CO2 29 H (19-24) mmol/L ABG Lactic Acid (0.5-1.6) mmol/L BUN (7-17) mg/dL Creatinine (0.52-1.04) mg/dL Glucose (74-99) mg/dL POC Glucose (mg/dL) 141 H (75-99) mg/dL Plasma Lactic Acid Iraj 2.2 H* (0.7-2.0) mmol/L Calcium (8.4-10.2) mg/dL Ionized Calcium Beatrice (4.5-5.3) mg/dL Total Bilirubin (0.2-1.3) mg/dL AST (14-36) U/L ALT (4-34) U/L Alkaline Phosphatase (38-126) U/L Total Protein (6.3-8.2) g/dL Procalcitonin (0.02-0.09) ng/mL Crossmatch 12/28/20 12/28/20 12/28/20 Range/Units 15:19 16:58 18:46 WBC (3.8-10.6) k/uL RBC (3.80-5.40) m/uL Hgb (11.4-16.0) gm/dL Hct (34.0-46.0) % RDW (11.5-15.5) % Plt Count (150-450) k/uL Neutrophils # (1.3-7.7) k/uL Lymphocytes # (1.0-4.8) k/uL PT (9.0-12.0) sec INR (<1.2) APTT (22.0-30.0) sec ABG pO2 (83-108) mmHg ABG HCO3 (21-25) mmol/L ABG Total CO2 (19-24) mmol/L ABG Lactic Acid (0.5-1.6) mmol/L BUN (7-17) mg/dL Creatinine (0.52-1.04) mg/dL Glucose (74-99) mg/dL POC Glucose (mg/dL) 146 H 151 H (75-99) mg/dL Plasma Lactic Acid Iraj (0.7-2.0) mmol/L Calcium (8.4-10.2) mg/dL Ionized Calcium Beatrice (4.5-5.3) mg/dL Total Bilirubin (0.2-1.3) mg/dL AST (14-36) U/L ALT (4-34) U/L Alkaline Phosphatase (38-126) U/L Total Protein (6.3-8.2) g/dL Procalcitonin 0.26 H (0.02-0.09) ng/mL Crossmatch 12/28/20 12/28/20 12/28/20 Range/Units 19:00 20:06 21:55 WBC (3.8-10.6) k/uL RBC (3.80-5.40) m/uL Hgb (11.4-16.0) gm/dL Hct (34.0-46.0) % RDW (11.5-15.5) % Plt Count (150-450) k/uL Neutrophils # (1.3-7.7) k/uL Lymphocytes # (1.0-4.8) k/uL PT (9.0-12.0) sec INR (<1.2) APTT (22.0-30.0) sec ABG pO2 (83-108) mmHg ABG HCO3 (21-25) mmol/L ABG Total CO2 (19-24) mmol/L ABG Lactic Acid (0.5-1.6) mmol/L BUN 48 H (7-17) mg/dL Creatinine 2.15 H (0.52-1.04) mg/dL Glucose 130 H (74-99) mg/dL POC Glucose (mg/dL) 149 H 147 H (75-99) mg/dL Plasma Lactic Acid Iraj (0.7-2.0) mmol/L Calcium (8.4-10.2) mg/dL Ionized Calcium Beatrice (4.5-5.3) mg/dL Total Bilirubin 2.3 H (0.2-1.3) mg/dL AST 72129 H (14-36) U/L ALT 4387 H (4-34) U/L Alkaline Phosphatase 35 L (38-126) U/L Total Protein 5.4 L (6.3-8.2) g/dL Procalcitonin (0.02-0.09) ng/mL Crossmatch 12/28/20 12/29/20 12/29/20 Range/Units 23:59 01:59 04:40 WBC 14.6 H (3.8-10.6) k/uL RBC 1.94 L (3.80-5.40) m/uL Hgb 6.0 L* D (11.4-16.0) gm/dL Hct 17.9 L* (34.0-46.0) % RDW 16.7 H (11.5-15.5) % Plt Count 26 L D (150-450) k/uL Neutrophils # 12.8 H (1.3-7.7) k/uL Lymphocytes # 0.6 L (1.0-4.8) k/uL PT (9.0-12.0) sec INR (<1.2) APTT (22.0-30.0) sec ABG pO2 (83-108) mmHg ABG HCO3 (21-25) mmol/L ABG Total CO2 (19-24) mmol/L ABG Lactic Acid (0.5-1.6) mmol/L BUN (7-17) mg/dL Creatinine (0.52-1.04) mg/dL Glucose (74-99) mg/dL POC Glucose (mg/dL) 136 H 143 H (75-99) mg/dL Plasma Lactic Acid Iraj (0.7-2.0) mmol/L Calcium (8.4-10.2) mg/dL Ionized Calcium Beatrice (4.5-5.3) mg/dL Total Bilirubin (0.2-1.3) mg/dL AST (14-36) U/L ALT (4-34) U/L Alkaline Phosphatase (38-126) U/L Total Protein (6.3-8.2) g/dL Procalcitonin (0.02-0.09) ng/mL Crossmatch 12/29/20 12/29/20 12/29/20 Range/Units 04:40 04:42 05:53 WBC (3.8-10.6) k/uL RBC (3.80-5.40) m/uL Hgb (11.4-16.0) gm/dL Hct (34.0-46.0) % RDW (11.5-15.5) % Plt Count (150-450) k/uL Neutrophils # (1.3-7.7) k/uL Lymphocytes # (1.0-4.8) k/uL PT (9.0-12.0) sec INR (<1.2) APTT (22.0-30.0) sec ABG pO2 (83-108) mmHg ABG HCO3 (21-25) mmol/L ABG Total CO2 (19-24) mmol/L ABG Lactic Acid (0.5-1.6) mmol/L BUN 53 H (7-17) mg/dL Creatinine 2.77 H (0.52-1.04) mg/dL Glucose 125 H (74-99) mg/dL POC Glucose (mg/dL) 146 H 145 H (75-99) mg/dL Plasma Lactic Acid Iraj (0.7-2.0) mmol/L Calcium 7.8 L (8.4-10.2) mg/dL Ionized Calcium Beatrice (4.5-5.3) mg/dL Total Bilirubin 3.0 H (0.2-1.3) mg/dL AST 09660 H (14-36) U/L ALT 3572 H (4-34) U/L Alkaline Phosphatase (38-126) U/L Total Protein 5.4 L (6.3-8.2) g/dL Procalcitonin (0.02-0.09) ng/mL Crossmatch 12/29/20 12/29/20 12/29/20 Range/Units 07:12 09:07 11:10 WBC (3.8-10.6) k/uL RBC (3.80-5.40) m/uL Hgb (11.4-16.0) gm/dL Hct (34.0-46.0) % RDW (11.5-15.5) % Plt Count (150-450) k/uL Neutrophils # (1.3-7.7) k/uL Lymphocytes # (1.0-4.8) k/uL PT 32.1 H (9.0-12.0) sec INR 3.3 H (<1.2) APTT 37.7 H (22.0-30.0) sec ABG pO2 (83-108) mmHg ABG HCO3 (21-25) mmol/L ABG Total CO2 (19-24) mmol/L ABG Lactic Acid (0.5-1.6) mmol/L BUN (7-17) mg/dL Creatinine (0.52-1.04) mg/dL Glucose (74-99) mg/dL POC Glucose (mg/dL) 127 H (75-99) mg/dL Plasma Lactic Acid Iraj (0.7-2.0) mmol/L Calcium (8.4-10.2) mg/dL Ionized Calcium Beatrice 3.8 L (4.5-5.3) mg/dL Total Bilirubin (0.2-1.3) mg/dL AST (14-36) U/L ALT (4-34) U/L Alkaline Phosphatase (38-126) U/L Total Protein (6.3-8.2) g/dL Procalcitonin (0.02-0.09) ng/mL Crossmatch 12/29/20 Range/Units 12:09 WBC (3.8-10.6) k/uL RBC (3.80-5.40) m/uL Hgb (11.4-16.0) gm/dL Hct (34.0-46.0) % RDW (11.5-15.5) % Plt Count (150-450) k/uL Neutrophils # (1.3-7.7) k/uL Lymphocytes # (1.0-4.8) k/uL PT (9.0-12.0) sec INR (<1.2) APTT (22.0-30.0) sec ABG pO2 (83-108) mmHg ABG HCO3 (21-25) mmol/L ABG Total CO2 (19-24) mmol/L ABG Lactic Acid (0.5-1.6) mmol/L BUN (7-17) mg/dL Creatinine (0.52-1.04) mg/dL Glucose (74-99) mg/dL POC Glucose (mg/dL) 117 H (75-99) mg/dL Plasma Lactic Acid Iraj (0.7-2.0) mmol/L Calcium (8.4-10.2) mg/dL Ionized Calcium Beatrice (4.5-5.3) mg/dL Total Bilirubin (0.2-1.3) mg/dL AST (14-36) U/L ALT (4-34) U/L Alkaline Phosphatase (38-126) U/L Total Protein (6.3-8.2) g/dL Procalcitonin (0.02-0.09) ng/mL Crossmatch
--- NOTE | 2020-12-29 14:02 | P.PN ---
Subjective Progress Note Date: 12/29/20 HISTORY OF PRESENT ILLNESS This is a 65-year-old female patient of Dr. 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 Patient underwent echocardiogram that revealed an ejection fraction of 55-60% with LVH, mild to moderate MR, bicuspid severely calcified aortic valve with moderate aortic regurgitation, moderate tricuspid regurgitation. The patient underwent cardiac julián terizationTEE for further evaluation. The cath showed right coronary artery stenosis in the order of 85% without any significant coronary artery disease. The transthoracic echocardiogram showed severe aortic stenosis. Patient underwent aortic valve replacement and one-vessel CABG with reverse saphenous vein graft off the aorta to the right coronary artery. Patient was admitted into the intensive care unit and was successfully extubated. She is seen today in the intensive care unit. She is up in a recliner. [place] in place, mediastinal and right-sided chest tubes in place, Acevedo catheter in place. Patient denies having any chest pain. She states she is not feeling too bad today. She has a little nausea. No abdominal pain. She states she slept okay last night. She has been afebrile, heart rate 71, blood pressure 119/52, pulse ox 90% on 5 L nasal cannula. Blood work this morning reveals W BC 15.2, hemoglobin 8, platelet count 168. Electrolytes normal, BUN 19 and creatinine 0.78. Blood sugars running between 124 and 141. AST 167. Chest x-ray reveals small residual right apical pneumothorax may be present. Chest tubes pulled back slightly from comparison. [place] catheter is somewhat peripheral and the right main pulmonary artery region. Cardiomegaly. Small left pleural effusion. 12/28: Patient remains in the intensive care unit. Patient has become hypoten sive with low urine output, elevated lactic acid, anemia, liver enzyme elevation and generalized anasarca. Patient is been started on dopamine, Primacor and is status post albumin and is status post 1 unit packed RBCs this morning. Urine output is improving. She is on BiPAP. Patient complains of generalized not feeling well and shortness of breath. Repeat CXR reports slight increase in mild left hilar and left basilar edema and/or atelectasis. Small pleural effusion. WBC 18.7, hemoglobin initially 6.8 and repeat a 0.1. Platelet count 124. INR 2.8. Electrolytes normal. BUN 32 and creatinine 1.53. Blood sugars running in the 140-170s. Total bilirubin 1.9, AST 1140, ALT 662, alkaline phosphatase 30. Amylase and lipase normal. 12/29: She remains in the intensive care unit. She has not been intubated. Her overall condition continues to decline and she is scheduled for dialysis catheter placement to start hemodialysis. She has had virtually no urine output despite being on Lasix drip patient also went into atrial fibrillation and started on digoxin and She remains with right pleural and mediastinal chest tubes are in place. Additional new diagnoses include A. fib with RVR, ischemic bowel suspected, bicytopenia. Patient is awake. She is complaining of chest discomfort. She is not have increased edema. Her temperature has been low down to 96.5. Heart rate 114, blood pressure 122/54, pulse ox 90%. WBC 14.6, hemoglobin 6, platelet count 26. INR 3.3. Electrolytes normal. BUN 53 and creatinine 2.77. Calcium 7.8. Ionized calcium 3.8. Total bilirubin 3, AST 11,442, ALT 3572, alkaline phosphatase 41. She has been ordered for plasma, platelets and RBC transfusions. REVIEW OF SYSTEMS Constitutional: No fever, no chills, no night sweats. No weight change. Reports weakness, reports fatigue reports lethargy. No daytime sleepiness. EENT: No headache. No change in vision, no loss of vision. No loss of Hearing, no dizziness. No nasal drainage or congestion. No epistaxis. No sore throat. Lungs: Reports shortness of breath, cough, no sputum production. No wheezing. Cardiovascular: Reports chest discomfort, reports lower extremity edema. Reports generalized edema. No palpitations. No paroxysmal nocturnal dyspnea. No orthopnea. No lightheadedness or dizziness. No syncopal episodes. Abdominal: No abdominal pain. Reports nausea, vomiting. No diarrhea. No constipation. No bloody or tarry stools.. No loss of appetite. Genitourinary: No dysuria, increased frequency, urgency. No urinary retention. Musculoskeletal: No myalgias. Reports muscle weakness, no gait dysfunction, no frequent falls. No back pain. No neck pain. Integumentary: No wounds, no lesions. No rash or pruritus. Neurologic: No aphasia. No facial droop. No change in mentation. No head injury. No headache. No paralysis. No paresthesia. Psychiatric: No depression. No anxiety. Endocrine: Reports abnormal blood sugars. PHYSICAL EXAMINATION Gen: This paradise 65-year-old female. She is resting in ICU bed, currently on BiPAP HEENT: Head is atraumatic, normocephalic. Pupils equal, round. Sclerae is anicteric. NECK: Supple. No JVD. No lymphadenopathy. No thyromegaly. Right-sided Cordis in place. LUNGS: Clear to auscultation. No wheezes or rhonchi. No intercostal retractions. Right pleural and mediastinal chest tubes in place. HEART: Regular rate and rhythm. No murmur. ABDOMEN: Soft. Bowel sounds are present. No masses. No tenderness. Acevedo catheter in place. EXTREMITIES: Mild generalized pedal edema. No calf tenderness. Dorsalis pedis palpable bilaterally. NEUROLOGICAL: Patient is awake, alert and oriented x3. Cranial nerves 2 through 12 are grossly intact. ASSESSMENT AND PLAN 1. Aortic valve replacement for bicuspid valve with moderate aortic regu rgitation and single-vessel CABG with CVG to RCA. Patient is postop day #3. She has been successfully extubated. Continue current management per cardiothoracic surgery. 2. Rule out cardiogenic shock. Status post dopamine and Primacor. Status post albumin IV. Patient started on IV Agustín-Synephrine. 3. Transaminitis secondary to hypoperfusion and shock liver. Continue to monitor liver function tests and INR. 4. Acute blood loss anemia, expected following surgery. Repeat transfusion tod ay. 5. Lactic acidosis secondary to hyperperfusion, improving. 6. A. fib with RVR, paroxysmal atrial fibrillation. 7. Possible ischemic bowel. 8. Bicytopenia with thrombocytopenia and anemia. Patient is scheduled for transfusions. 9. Acute renal failure requiring dialysis. Vascular on for dialysis catheter placement. 10. Acute hypoxic respiratory failure requiring BiPAP. 11. SIRS with multiorgan failure. Continue current management. 12. Hypertension. Patient is currently hypotensive. 13. Hyperlipidemia. 14. History of CVA 2. 15. Hypothyroidism. Continue levothyroxine 25 g daily. 16. Recurrent depression. Continue Zoloft 25 mg at bedtime. 17. Degenerative disc disease. 18. GI prophylaxis. Protonix 40 mg IV push twice daily. 19. DVT prophylaxis. Off heparin due to thrombocytopenia DISCHARGE PLAN TBD. Impression and plan of care have been directed as dictated by the signing physician. Donna Gutierrez nurse practitioner acting as scribe for signing physician. Objective - Vital Signs Vital signs: Vital Signs Temp 97.8 F 12/28/20 20:00 Pulse 124 H 12/29/20 07:28 Resp 20 12/29/20 07:00 BP 104/48 12/29/20 07:00 Pulse Ox 92 L 12/29/20 07:00 Intake & Output 12/28/20 12/29/20 12/29/20 18:59 06:59 18:59 Intake Total 864.205 962.356 146 Output Total 315 215 3 Balance 549.205 747.356 143 Weight 70.7 kg Intake: IV 552 802 46 0.9 NaCl 480 480 40 Albumin Human 5% 250 ml 250 In Empty Bag 1 bag @ 250 mls/hr IVPB Q1HR PRN Rx#: [id number] pressure bags 72 72 6 Intake, IV Titration 2.205 160.356 100 Amount Albumin Human 25% 50 ml 50 In Empty Bag 1 bag @ 50 mls/hr IVPB ONCE ONE Rx#: [id number] Furosemide 100 mg In 100 Sodium Chloride 0.9% 90 ml @ 10 MG/HR 10 mls/hr IV .Q10H [facility] Rx#: [id number] Insulin Regular 100 unit 2.205 In Sodium Chloride 0.9% 100 ml @ Per Protocol IV .Q0M [facility] Rx#:[id number] Milrinone-D5w Pmx 20 mg 110.356 In Dextrose/Water 1 100ml .bag @ 0.1 MCG/KG/MIN 1. 998 mls/hr IV .Q24H [facility] Rx#:[id number] Blood Product 310 Rc As-1 Unit 310 [id number] Output: Chest Tube Drainage 180 170 Right Pleural/Mediastinal 180 170 Urine 135 45 3 Other: Voiding Method Indwelling Catheter Indwelling Catheter ABP, PAP, CO, CI - Last Documented Arterial Blood Pressure 108/52 Pulmonary Artery Pressure 12/5 Cardiac Output 4.2 Cardiac Index 2.6 - Labs CBC & Chem 7: 12/29/20 04:40 12/29/20 04:40 Labs: Abnormal Lab Results - Last 24 Hours (Table) 0312/28/20 12/28/20 Range/Units 04:25 07:28 09:40 WBC 18.7 H (3.8-10.6) k/uL RBC 2.58 L (3.80-5.40) m/uL Hgb 8.1 L (11.4-16.0) gm/dL Hct 23.4 L (34.0-46.0) % RDW 16.2 H (11.5-15.5) % Plt Count 124 L (150-450) k/uL Neutrophils # (1.3-7.7) k/uL Lymphocytes # (1.0-4.8) k/uL PT (9.0-12.0) sec INR (<1.2) APTT (22.0-30.0) sec ABG pO2 70 L (83-108) mmHg ABG HCO3 (21-25) mmol/L ABG Total CO2 25 H (19-24) mmol/L ABG O2 Saturation 93.4 L (94-97) % ABG Lactic Acid (0.5-1.6) mmol/L BUN (7-17) mg/dL Creatinine (0.52-1.04) mg/dL Glucose (74-99) mg/dL POC Glucose (mg/dL) (75-99) mg/dL Plasma Lactic Acid Iraj (0.7-2.0) mmol/L Calcium (8.4-10.2) mg/dL Total Bilirubin (0.2-1.3) mg/dL AST (14-36) U/L ALT (4-34) U/L Alkaline Phosphatase (38-126) U/L Total Protein (6.3-8.2) g/dL Procalcitonin (0.02-0.09) ng/mL Crossmatch See Detail 12/28/20 12/28/20 12/28/20 Range/Units 09:40 10:12 11:58 WBC (3.8-10.6) k/uL RBC (3.80-5.40) m/uL Hgb (11.4-16.0) gm/dL Hct (34.0-46.0) % RDW (11.5-15.5) % Plt Count (150-450) k/uL Neutrophils # (1.3-7.7) k/uL Lymphocytes # (1.0-4.8) k/uL PT (9.0-12.0) sec INR (<1.2) APTT (22.0-30.0) sec ABG pO2 (83-108) mmHg ABG HCO3 (21-25) mmol/L ABG Total CO2 (19-24) mmol/L ABG O2 Saturation (94-97) % ABG Lactic Acid 4.4 H* (0.5-1.6) mmol/L BUN (7-17) mg/dL Creatinine (0.52-1.04) mg/dL Glucose (74-99) mg/dL POC Glucose (mg/dL) 171 H 158 H (75-99) mg/dL Plasma Lactic Acid Iraj (0.7-2.0) mmol/L Calcium (8.4-10.2) mg/dL Total Bilirubin (0.2-1.3) mg/dL AST (14-36) U/L ALT (4-34) U/L Alkaline Phosphatase (38-126) U/L Total Protein (6.3-8.2) g/dL Procalcitonin (0.02-0.09) ng/mL Crossmatch 12/28/20 12/28/20 12/28/20 Range/Units 12:10 12:30 12:48 WBC (3.8-10.6) k/uL RBC (3.80-5.40) m/uL Hgb (11.4-16.0) gm/dL Hct (34.0-46.0) % RDW (11.5-15.5) % Plt Count (150-450) k/uL Neutrophils # (1.3-7.7) k/uL Lymphocytes # (1.0-4.8) k/uL PT (9.0-12.0) sec INR (<1.2) APTT (22.0-30.0) sec ABG pO2 71 L (83-108) mmHg ABG HCO3 27 H (21-25) mmol/L ABG Total CO2 29 H (19-24) mmol/L ABG O2 Saturation (94-97) % ABG Lactic Acid 2.6 H* (0.5-1.6) mmol/L BUN (7-17) mg/dL Creatinine (0.52-1.04) mg/dL Glucose (74-99) mg/dL POC Glucose (mg/dL) (75-99) mg/dL Plasma Lactic Acid Iraj 2.9 H* (0.7-2.0) mmol/L Calcium (8.4-10.2) mg/dL Total Bilirubin (0.2-1.3) mg/dL AST (14-36) U/L ALT (4-34) U/L Alkaline Phosphatase (38-126) U/L Total Protein (6.3-8.2) g/dL Procalcitonin (0.02-0.09) ng/mL Crossmatch 12/28/20 12/28/20 12/28/20 Range/Units 15:00 15:19 15:19 WBC (3.8-10.6) k/uL RBC (3.80-5.40) m/uL Hgb (11.4-16.0) gm/dL Hct (34.0-46.0) % RDW (11.5-15.5) % Plt Count (150-450) k/uL Neutrophils # (1.3-7.7) k/uL Lymphocytes # (1.0-4.8) k/uL PT (9.0-12.0) sec INR (<1.2) APTT (22.0-30.0) sec ABG pO2 (83-108) mmHg ABG HCO3 (21-25) mmol/L ABG Total CO2 (19-24) mmol/L ABG O2 Saturation (94-97) % ABG Lactic Acid (0.5-1.6) mmol/L BUN (7-17) mg/dL Creatinine (0.52-1.04) mg/dL Glucose (74-99) mg/dL POC Glucose (mg/dL) 141 H (75-99) mg/dL Plasma Lactic Acid Iraj 2.2 H* (0.7-2.0) mmol/L Calcium (8.4-10.2) mg/dL Total Bilirubin (0.2-1.3) mg/dL AST (14-36) U/L ALT (4-34) U/L Alkaline Phosphatase (38-126) U/L Total Protein (6.3-8.2) g/dL Procalcitonin 0.26 H (0.02-0.09) ng/mL Crossmatch 12/28/20 12/28/20 12/28/20 Range/Units 16:58 18:46 19:00 WBC (3.8-10.6) k/uL RBC (3.80-5.40) m/uL Hgb (11.4-16.0) gm/dL Hct (34.0-46.0) % RDW (11.5-15.5) % Plt Count (150-450) k/uL Neutrophils # (1.3-7.7) k/uL Lymphocytes # (1.0-4.8) k/uL PT (9.0-12.0) sec INR (<1.2) APTT (22.0-30.0) sec ABG pO2 (83-108) mmHg ABG HCO3 (21-25) mmol/L ABG Total CO2 (19-24) mmol/L ABG O2 Saturation (94-97) % ABG Lactic Acid (0.5-1.6) mmol/L BUN 48 H (7-17) mg/dL Creatinine 2.15 H (0.52-1.04) mg/dL Glucose 130 H (74-99) mg/dL POC Glucose (mg/dL) 146 H 151 H (75-99) mg/dL Plasma Lactic Acid Iraj (0.7-2.0) mmol/L Calcium (8.4-10.2) mg/dL Total Bilirubin 2.3 H (0.2-1.3) mg/dL AST 94463 H (14-36) U/L ALT 4387 H (4-34) U/L Alkaline Phosphatase 35 L (38-126) U/L Total Protein 5.4 L (6.3-8.2) g/dL Procalcitonin (0.02-0.09) ng/mL Crossmatch 12/28/20 12/28/20 12/28/20 Range/Units 20:06 21:55 23:59 WBC (3.8-10.6) k/uL RBC (3.80-5.40) m/uL Hgb (11.4-16.0) gm/dL Hct (34.0-46.0) % RDW (11.5-15.5) % Plt Count (150-450) k/uL Neutrophils # (1.3-7.7) k/uL Lymphocytes # (1.0-4.8) k/uL PT (9.0-12.0) sec INR (<1.2) APTT (22.0-30.0) sec ABG pO2 (83-108) mmHg ABG HCO3 (21-25) mmol/L ABG Total CO2 (19-24) mmol/L ABG O2 Saturation (94-97) % ABG Lactic Acid (0.5-1.6) mmol/L BUN (7-17) mg/dL Creatinine (0.52-1.04) mg/dL Glucose (74-99) mg/dL POC Glucose (mg/dL) 149 H 147 H 136 H (75-99) mg/dL Plasma Lactic Acid Iraj (0.7-2.0) mmol/L Calcium (8.4-10.2) mg/dL Total Bilirubin (0.2-1.3) mg/dL AST (14-36) U/L ALT (4-34) U/L Alkaline Phosphatase (38-126) U/L Total Protein (6.3-8.2) g/dL Procalcitonin (0.02-0.09) ng/mL Crossmatch 12/29/20 12/29/20 12/29/20 Range/Units 01:59 04:40 04:40 WBC 14.6 H (3.8-10.6) k/uL RBC 1.94 L (3.80-5.40) m/uL Hgb 6.0 L* D (11.4-16.0) gm/dL Hct 17.9 L* (34.0-46.0) % RDW 16.7 H (11.5-15.5) % Plt Count 26 L D (150-450) k/uL Neutrophils # 12.8 H (1.3-7.7) k/uL Lymphocytes # 0.6 L (1.0-4.8) k/uL PT (9.0-12.0) sec INR (<1.2) APTT (22.0-30.0) sec ABG pO2 (83-108) mmHg ABG HCO3 (21-25) mmol/L ABG Total CO2 (19-24) mmol/L ABG O2 Saturation (94-97) % ABG Lactic Acid (0.5-1.6) mmol/L BUN 53 H (7-17) mg/dL Creatinine 2.77 H (0.52-1.04) mg/dL Glucose 125 H (74-99) mg/dL POC Glucose (mg/dL) 143 H (75-99) mg/dL Plasma Lactic Acid Iraj (0.7-2.0) mmol/L Calcium 7.8 L (8.4-10.2) mg/dL Total Bilirubin 3.0 H (0.2-1.3) mg/dL AST 32847 H (14-36) U/L ALT 3572 H (4-34) U/L Alkaline Phosphatase (38-126) U/L Total Protein 5.4 L (6.3-8.2) g/dL Procalcitonin (0.02-0.09) ng/mL Crossmatch 12/29/20 12/29/20 12/29/20 Range/Units 04:42 05:53 07:12 WBC (3.8-10.6) k/uL RBC (3.80-5.40) m/uL Hgb (11.4-16.0) gm/dL Hct (34.0-46.0) % RDW (11.5-15.5) % Plt Count (150-450) k/uL Neutrophils # (1.3-7.7) k/uL Lymphocytes # (1.0-4.8) k/uL PT 32.1 H (9.0-12.0) sec INR 3.3 H (<1.2) APTT 37.7 H (22.0-30.0) sec ABG pO2 (83-108) mmHg ABG HCO3 (21-25) mmol/L ABG Total CO2 (19-24) mmol/L ABG O2 Saturation (94-97) % ABG Lactic Acid (0.5-1.6) mmol/L BUN (7-17) mg/dL Creatinine (0.52-1.04) mg/dL Glucose (74-99) mg/dL POC Glucose (mg/dL) 146 H 145 H (75-99) mg/dL Plasma Lactic Acid Iraj (0.7-2.0) mmol/L Calcium (8.4-10.2) mg/dL Total Bilirubin (0.2-1.3) mg/dL AST (14-36) U/L ALT (4-34) U/L Alkaline Phosphatase (38-126) U/L Total Protein (6.3-8.2) g/dL Procalcitonin (0.02-0.09) ng/mL Crossmatch 12/29/20 Range/Units 09:07 WBC (3.8-10.6) k/uL RBC (3.80-5.40) m/uL Hgb (11.4-16.0) gm/dL Hct (34.0-46.0) % RDW (11.5-15.5) % Plt Count (150-450) k/uL Neutrophils # (1.3-7.7) k/uL Lymphocytes # (1.0-4.8) k/uL PT (9.0-12.0) sec INR (<1.2) APTT (22.0-30.0) sec ABG pO2 (83-108) mmHg ABG HCO3 (21-25) mmol/L ABG Total CO2 (19-24) mmol/L ABG O2 Saturation (94-97) % ABG Lactic Acid (0.5-1.6) mmol/L BUN (7-17) mg/dL Creatinine (0.52-1.04) mg/dL Glucose (74-99) mg/dL POC Glucose (mg/dL) 127 H (75-99) mg/dL Plasma Lactic Acid Iraj (0.7-2.0) mmol/L Calcium (8.4-10.2) mg/dL Total Bilirubin (0.2-1.3) mg/dL AST (14-36) U/L ALT (4-34) U/L Alkaline Phosphatase (38-126) U/L Total Protein (6.3-8.2) g/dL Procalcitonin (0.02-0.09) ng/mL Crossmatch
[2020-12-29] MEDS: fentaNYL (PF) 50 MCG/ML 2 ML AMP IVP PRN ×2 (15:27→20:14)
[2020-12-29 15:41] LABS: Anisocytosis Slight; MCH 31.1 pg (25.0-35.0); MCHC 34.2 g/dL (31.0-37.0); Mean Platelet Volume 10.5; Poikilocytosis Slight; RBC 2.42 m/uL (3.80-5.40); RDW 16.1 % (11.5-15.5); Reticulocyte % 1.5 % (0.5-2.0)
[2020-12-29 15:44] LABS: HGB 7.5 gm/dL (11.4-16.0)
[2020-12-29 15:46] LABS: Lactic Acid, Venous 3.9 mmol/L (0.7-2.0)
--- NOTE | 2020-12-29 16:02 | P.CONS ---
History of Present Illness - Reason for Consult Consult date: 12/29/20 coagulopathy Requesting physician: Sherry Lopez - History of Present Illness Mrs. Silva is a 55-year-old female with known aortic valve stenosis along , history of CVA. She presented originally with dyspnea. The patient underwent a cardiac echo, cardiac catheterization and FIDEL for further evaluation. The cath showed right coronary artery stenosis in the order of 85% without any significant coronary artery disease. FIDEL revealed severe aortic stenosis therefore taken to the operating room aVR and the patient also underwent a single-vessel bypass surgery with SVG to RCA. On 12/27/2020 The patient was extubated Bilateral chest tubes. On 12/28 patient had declined with hypotensive event and oliguric. She went into shock state. She remains in ICU hemodynamic instability, low urine output, lactic acidosis and shock state including a shock liver, and acute kidney injury. Coagulopathy, Increased LFTs, Decreased Hemoglobin and platelets. Therefore hematology has asked to evaluate. At this time appears to be related mainly to hypotensive event, however other underlying factors will be considered. Past Medical History Past Medical History: CVA/TIA, Hyperlipidemia, Hypertension, Musculoskeletal Disorder, Thyroid Disorder Additional Past Medical History / Comment(s): Calcified aortic valve/bicuspid valve with a valve area of 0.5 cm, single-vessel coronary artery disease, history of CVA with right-sided blindness, hypertension, hyperlipidemia, back & right hip pain, hypothyroidism History of Any Multi-Drug Resistant Organisms: None Reported Past Surgical History: Section, Heart Catheterization Additional Past Surgical History / Comment(s): anibal feet,rt hand,c sect x2,breast bx Past Anesthesia/Blood Transfusion Reactions: No Reported Reaction Additional Past Anesthesia/Blood Transfusion Reaction / Comm: no hx blood transfusion Smoking Status: Former smoker - Past Family History Mother Family Medical History: Cancer Additional Family Medical History / Comment(s): cervical Sister(s) Family Medical History: Cancer Additional Family Medical History / Comment(s): breast Father Family Medical History: Cancer Additional Family Medical History / Comment(s): colon Medications and Allergies Home Medications Medication Instructions Recorded Confirmed Type Aspirin EC [Ecotrin Low Dose] 81 mg PO HS 12/12/20 12/26/20 History Atorvastatin [Lipitor] 40 mg PO HS 12/13/20 12/26/20 History Baclofen 10 mg PO HS 12/13/20 12/26/20 History HYDROcodone/APAP 5-325MG [[place]ie 1 tab PO BID PRN 12/13/20 12/26/20 History 5-325] Ibuprofen [Motrin] 800 mg PO BID PRN 12/13/20 12/26/20 History Levothyroxine Sodium [Synthroid] 25 mcg PO HS 12/13/20 12/26/20 History Metoprolol Tartrate [Lopressor] 12.5 mg PO BID 12/13/20 12/26/20 History Sertraline [Zoloft] 25 mg PO HS 12/13/20 12/26/20 History amLODIPine [Norvasc] 5 mg PO HS 12/13/20 12/26/20 History Allergies Allergy/AdvReac Type Severity Reaction Status Date / Time No Known Allergies Allergy Verified 12/26/20 06:04 Physical Exam Vitals: Vital Signs Temp Pulse Resp BP Pulse Ox 12/29/20 15:10 97.2 F L 118 H 18 105/50 97 12/29/20 13:09 97.6 F 125 H 22 115/51 12/29/20 12:58 101 H 12/29/20 12:48 113 H 12/29/20 12:45 97.6 F 129 H 20 111/52 97 12/29/20 12:39 97.4 F L 112 H 20 115/49 96 12/29/20 12:29 97.5 F L 111 H 20 125/52 96 12/29/20 12:00 97.2 F L 114 H 18 122/54 98 12/29/20 11:00 124 H 15 98/48 99 12/29/20 10:41 97 F L 105 H 22 103/48 96 12/29/20 10:34 97 F L 114 H 22 108/45 97 12/29/20 10:30 97 F L 115 H 20 114/50 97 12/29/20 10:20 96.5 F L 109 H 22 95/46 96 12/29/20 10:12 96.5 F L 123 H 24 98/44 12/29/20 10:02 97.7 F 110 H 23 92/45 96 12/29/20 10:00 117 H 17 82/33 96 12/29/20 09:00 85 21 92 L 12/29/20 08:00 97.7 F 128 H 17 108/51 95 12/29/20 07:28 124 H 12/29/20 07:17 112 H 12/29/20 07:00 137 H 20 104/48 92 L 12/29/20 06:00 88 17 94 L 12/29/20 05:00 101 H 19 106/53 95 12/29/20 04:00 89 17 115/54 96 12/29/20 03:00 99 17 112/46 100 12/29/20 02:00 85 21 101/47 97 12/29/20 01:00 91 31 H 104/49 97 12/29/20 00:00 89 19 92/46 95 12/28/20 23:00 88 21 94 L 12/28/20 22:00 86 16 94/48 96 12/28/20 21:00 81 18 100/45 96 12/28/20 20:01 72 12/28/20 20:00 97.8 F 85 16 113/50 92 L 12/28/20 19:53 72 12/28/20 19:00 90 30 H 112/53 94 L 12/28/20 18:00 85 18 115/54 93 L 12/28/20 17:00 81 20 99/51 93 L 12/28/20 16:00 98 F 78 13 104/49 95 Intake and Output 12/29/20 12/29/20 12/29/20 06:59 14:59 22:59 Intake Total 116.949 8179 583 Output Total 28 218 Balance 547.755 1770 583 Intake: IV 322 382 0.9 NaCl 280 340 pressure bags 42 42 Intake, IV Titration 37.096 100 Amount Furosemide 100 mg In 100 Sodium Chloride 0.9% 90 ml @ 20 MG/HR 20 mls/hr IV .Q5H KOBI Rx#:[id number] Milrinone-D5w Pmx 20 mg 37.096 In Dextrose/Water 1 100ml .bag @ 0.1 MCG/KG/MIN 1. 998 mls/hr IV .Q24H KOBI Rx#:[id number] Blood Product 2930 583 Ffp 24 Cpd Unit 2623 [id number] Ffp 24 Cpd Unit 307 [id number] Platelet Pheresis Acd-A 0 Pasc 1 Unit [id number] Platelet Pheresis Acd-A 0 273 Pasc 2 Unit [id number] As-1 Unit 0 310 [id number] Output: Chest Tube Drainage 200 Right Pleural/Mediastinal 200 Urine 28 18 Other: Voiding Method Indwelling Catheter Indwelling Catheter Weight 70.7 kg ABP, PAP, CO, CI - Last 8 Hours Arterial Blood Pressure 103/47 Arterial Blood Pressure 97/46 Arterial Blood Pressure 96/43 Arterial Blood Pressure 77/34 Arterial Blood Pressure 97/46 Cardiac Output 4.2 Cardiac Output 4.2 Cardiac Output 4.2 Cardiac Output 4.2 Cardiac Index 2.6 Cardiac Index 2.6 Cardiac Index 2.6 Cardiac Index 2.6 Results CBC & Chem 7: 12/29/20 15:15 12/29/20 04:40 Labs: Abnormal Lab Results - Last 24 Hours (Table) 12/28/20 12/28/20 12/28/20 Range/Units 04:25 15:19 16:58 WBC (3.8-10.6) k/uL RBC (3.80-5.40) m/uL Hgb (11.4-16.0) gm/dL Hct (34.0-46.0) % RDW (11.5-15.5) % Plt Count (150-450) k/uL Neutrophils # (1.3-7.7) k/uL Lymphocytes # (1.0-4.8) k/uL PT (9.0-12.0) sec INR (<1.2) APTT (22.0-30.0) sec BUN (7-17) mg/dL Creatinine (0.52-1.04) mg/dL Glucose (74-99) mg/dL POC Glucose (mg/dL) 146 H (75-99) mg/dL Plasma Lactic Acid Iraj (0.7-2.0) mmol/L Calcium (8.4-10.2) mg/dL Ionized Calcium Beatrice (4.5-5.3) mg/dL Total Bilirubin (0.2-1.3) mg/dL AST (14-36) U/L ALT (4-34) U/L Alkaline Phosphatase (38-126) U/L Total Protein (6.3-8.2) g/dL Procalcitonin 0.26 H (0.02-0.09) ng/mL Crossmatch See Detail 12/28/20 12/28/2012/28/21 Range/Units 18:46 19:00 20:06 WBC (3.8-10.6) k/uL RBC (3.80-5.40) m/uL Hgb (11.4-16.0) gm/dL Hct (34.0-46.0) % RDW (11.5-15.5) % Plt Count (150-450) k/uL Neutrophils # (1.3-7.7) k/uL Lymphocytes # (1.0-4.8) k/uL PT (9.0-12.0) sec INR (<1.2) APTT (22.0-30.0) sec BUN 48 H (7-17) mg/dL Creatinine 2.15 H (0.52-1.04) mg/dL Glucose 130 H (74-99) mg/dL POC Glucose (mg/dL) 151 H 149 H (75-99) mg/dL Plasma Lactic Acid Iraj (0.7-2.0) mmol/L Calcium (8.4-10.2) mg/dL Ionized Calcium Beatrice (4.5-5.3) mg/dL Total Bilirubin 2.3 H (0.2-1.3) mg/dL AST 09336 H (14-36) U/L ALT 4387 H (4-34) U/L Alkaline Phosphatase 35 L (38-126) U/L Total Protein 5.4 L (6.3-8.2) g/dL Procalcitonin (0.02-0.09) ng/mL Crossmatch 12/28/20 12/28/20 12/29/20 Range/Units 21:55 23:59 01:59 WBC (3.8-10.6) k/uL RBC (3.80-5.40) m/uL Hgb (11.4-16.0) gm/dL Hct (34.0-46.0) % RDW (11.5-15.5) % Plt Count (150-450) k/uL Neutrophils # (1.3-7.7) k/uL Lymphocytes # (1.0-4.8) k/uL PT (9.0-12.0) sec INR (<1.2) APTT (22.0-30.0) sec BUN (7-17) mg/dL Creatinine (0.52-1.04) mg/dL Glucose (74-99) mg/dL POC Glucose (mg/dL) 147 H 136 H 143 H (75-99) mg/dL Plasma Lactic Acid Iraj (0.7-2.0) mmol/L Calcium (8.4-10.2) mg/dL Ionized Calcium Beatrice (4.5-5.3) mg/dL Total Bilirubin (0.2-1.3) mg/dL AST (14-36) U/L ALT (4-34) U/L Alkaline Phosphatase (38-126) U/L Total Protein (6.3-8.2) g/dL Procalcitonin (0.02-0.09) ng/mL Crossmatch 12/29/20 12/29/20 12/29/20 Range/Units 04:40 04:40 04:42 WBC 14.6 H (3.8-10.6) k/uL RBC 1.94 L (3.80-5.40) m/uL Hgb 6.0 L* D (11.4-16.0) gm/dL Hct 17.9 L* (34.0-46.0) % RDW 16.7 H (11.5-15.5) % Plt Count 26 L D (150-450) k/uL Neutrophils # 12.8 H (1.3-7.7) k/uL Lymphocytes # 0.6 L (1.0-4.8) k/uL PT (9.0-12.0) sec INR (<1.2) APTT (22.0-30.0) sec BUN 53 H (7-17) mg/dL Creatinine 2.77 H (0.52-1.04) mg/dL Glucose 125 H (74-99) mg/dL POC Glucose (mg/dL) 146 H (75-99) mg/dL Plasma Lactic Acid Iraj (0.7-2.0) mmol/L Calcium 7.8 L (8.4-10.2) mg/dL Ionized Calcium Beatrice (4.5-5.3) mg/dL Total Bilirubin 3.0 H (0.2-1.3) mg/dL AST 68372 H (14-36) U/L ALT 3572 H (4-34) U/L Alkaline Phosphatase (38-126) U/L Total Protein 5.4 L (6.3-8.2) g/dL Procalcitonin (0.02-0.09) ng/mL Crossmatch 12/29/20 12/29/20 12/29/20 Range/Units 05:53 07:12 09:07 WBC (3.8-10.6) k/uL RBC (3.80-5.40) m/uL Hgb (11.4-16.0) gm/dL Hct (34.0-46.0) % RDW (11.5-15.5) % Plt Count (150-450) k/uL Neutrophils # (1.3-7.7) k/uL Lymphocytes # (1.0-4.8) k/uL PT 32.1 H (9.0-12.0) sec INR 3.3 H (<1.2) APTT 37.7 H (22.0-30.0) sec BUN (7-17) mg/dL Creatinine (0.52-1.04) mg/dL Glucose (74-99) mg/dL POC Glucose (mg/dL) 145 H 127 H (75-99) mg/dL Plasma Lactic Acid Iraj (0.7-2.0) mmol/L Calcium (8.4-10.2) mg/dL Ionized Calcium Beatrice (4.5-5.3) mg/dL Total Bilirubin (0.2-1.3) mg/dL AST (14-36) U/L ALT (4-34) U/L Alkaline Phosphatase (38-126) U/L Total Protein (6.3-8.2) g/dL Procalcitonin (0.02-0.09) ng/mL Crossmatch 12/29/20 12/29/20 12/29/20 Range/Units 11:10 12:09 15:15 WBC (3.8-10.6) k/uL RBC (3.80-5.40) m/uL Hgb (11.4-16.0) gm/dL Hct (34.0-46.0) % RDW (11.5-15.5) % Plt Count (150-450) k/uL Neutrophils # (1.3-7.7) k/uL Lymphocytes # (1.0-4.8) k/uL PT (9.0-12.0) sec INR (<1.2) APTT (22.0-30.0) sec BUN (7-17) mg/dL Creatinine (0.52-1.04) mg/dL Glucose (74-99) mg/dL POC Glucose (mg/dL) 117 H (75-99) mg/dL Plasma Lactic Acid Iraj 3.9 H* (0.7-2.0) mmol/L Calcium (8.4-10.2) mg/dL Ionized Calcium Beatrice 3.8 L (4.5-5.3) mg/dL Total Bilirubin (0.2-1.3) mg/dL AST (14-36) U/L ALT (4-34) U/L Alkaline Phosphatase (38-126) U/L Total Protein (6.3-8.2) g/dL Procalcitonin (0.02-0.09) ng/mL Crossmatch 12/29/20 Range/Units 15:15 WBC 14.4 H (3.8-10.6) k/uL RBC 2.42 L (3.80-5.40) m/uL Hgb 7.5 L D (11.4-16.0) gm/dL Hct 22.0 L (34.0-46.0) % RDW 16.1 H (11.5-15.5) % Plt Count (150-450) k/uL Neutrophils # (1.3-7.7) k/uL Lymphocytes # (1.0-4.8) k/uL PT (9.0-12.0) sec INR (<1.2) APTT (22.0-30.0) sec BUN (7-17) mg/dL Creatinine (0.52-1.04) mg/dL Glucose (74-99) mg/dL POC Glucose (mg/dL) (75-99) mg/dL Plasma Lactic Acid Iraj (0.7-2.0) mmol/L Calcium (8.4-10.2) mg/dL Ionized Calcium Beatrice (4.5-5.3) mg/dL Total Bilirubin (0.2-1.3) mg/dL AST (14-36) U/L ALT (4-34) U/L Alkaline Phosphatase (38-126) U/L Total Protein (6.3-8.2) g/dL Procalcitonin (0.02-0.09) ng/mL Crossmatch Assessment and Plan Plan: Assessment and recommendations: Coagulopathy: - Repeat Coags - Monitor DIC/TTP - Likely secondary to shock liver - CBC smear evaluate for shistocytes - Monitor closely and give FFP and Cryo for fibrinogen less than 100, with active bleeding Anemia: - Possibly secondary to above although assess for blood loss, hemolysis (ordered) - CBC closely monitor, transfuse less than 7 Thrmobocytopenia: - Agree with HIT antibodies Increased LFTs: - Shock liver In ICU care further recs to follow
[2020-12-29 16:03] LABS: Lymphocytes # (M) 0.42 k/uL (1.0-4.8); Monocytes # (M) 0.56 k/uL (0-1.0); Neutrophils # (M) 13.25 k/uL (1.3-7.7); Neutrophils % (M) 94 %; Nucleated Red Blood Cells 2 /100 WBC (0-0); Total Cells Counted 200; WBC 14.1 k/uL (3.8-10.6)
[2020-12-29 16:04] LABS: Platelet Count 54 k/uL (150-450)
[2020-12-29 16:47] LABS: Glucose,Whole Blood 100 mg/dL (75-99)
--- NOTE | 2020-12-29 16:55 | CONS ---
CONSULTATION REASON FOR CONSULTATION: Renal failure. HISTORY OF PRESENT ILLNESS: Patient is a 65-year-old female who is status post coronary artery bypass surgery on 12/26/2020 and aortic valve replacement with bioprosthetic valve. Postoperatively, patient developed hypotension, severe lactic acidosis, and urine output had dropped. Blood pressure was noted to be in 80s and 90s mmHg for systolic. Currently patient is maintained on Lasix drip. Urine output remains poor at only about 5 to zero mL/hour. Patient was extubated. She is currently maintained on BiPAP. No nephrotoxic medications noted at this point. She is maintained on Milrinone as well as empiric antibiotics. Chest x-ray was worse, with worsening volume status, and therefore Nephrology was consulted for dialysis. PAST MEDICAL HISTORY: Coronary artery disease, hypertension, history of CVA, hyperlipidemia, hypothyroidism, depression, valvular heart disease, osteoarthritis. PAST SURGICAL HISTORY: , cardiac catheterization, coronary stent, breast biopsy, surgery on the right hand. SOCIAL HISTORY: Patient is a former smoker. No history of drug abuse or alcohol abuse. MEDICATIONS: Medications prior to admission included aspirin, Lipitor, baclofen, Motrin, Synthroid, Lopressor, Zoloft, Norvasc. ALLERGIES: NONE. PHYSICAL EXAMINATION: Patient is currently awake. She is on BiPAP. She is alert and oriented x3. EXAMINATION OF THE HEART: S1 and S2. EXAMINATION OF LUNGS: Bilateral breath sounds are heard. Basal crackles are heard. ABDOMEN: Soft. Examination of lower extremities shows edema 1+ bilaterally. MANDREL PULLER exam is grossly intact. LABS: Sodium 139, potassium 4.7, chloride 105. CO2 is 22, BUN 53, creatinine 2.7, hemoglobin 6.0 g/dL. ASSESSMENT: 1. Acute kidney injury associated with hypotension as well as severe anemia with a hemoglobin noted to be 6 this morning. Patient is currently oliguric. There is evidence of volume overload. We will proceed with renal replacement therapy. Since blood pressure is low, we will be using the SLED procedure. 2. Volume overload, congestive heart failure. Ejection fraction was preserved, 50% to 55% prior to surgery. An echocardiogram done yesterday shows EF more than 70%. Moderate pulmonary hypertension was noted. 3. Status post coronary artery bypass surgery and aortic valve replacement. PLAN: Discontinue IV fluids. May continue with the Lasix drip. We will dialyze the patient today, mostly for ultrafiltration. Avoid any nephrotoxic agents. Check urinalysis. Transfuse packed RBCs. Thank you for this consultation. Will continue to follow the patient with you during her hospitalization. JOSH / ECHO: [id number] /
[2020-12-29 21:04] LABS: ABG Base Excess 1.5 mmol/L; ABG HCO3 25 mmol/L (21-25); ABG PCO2 36 mmHg (35-45); ABG PH 7.45 (7.35-7.45); ABG PO2 92 mmHg (83-108); ABG TCO2 27 mmol/L (19-24); Allen Test Performed? Yes
[2020-12-29 21:07] LABS: Glucose,Whole Blood 86 mg/dL (75-99)
[2020-12-29 21:12] LABS: Hepatitis B Surface AB- Quant 14.5 mIU/mL; Hepatitis B Surface Antibody Reactive (Non-Reactive); Hepatitis B Surface Antigen Non-Reactive (Non-Reactive)
[2020-12-29 21:18] LABS: Anisocytosis Slight; HCT 21.4 % (34.0-46.0); HGB 7.4 gm/dL (11.4-16.0); MCH 31.3 pg (25.0-35.0); MCHC 34.8 g/dL (31.0-37.0); MCV 89.8 fL (80.0-100.0); Platelet Count 46 k/uL (150-450); Poikilocytosis Slight; RBC 2.38 m/uL (3.80-5.40)
[2020-12-29] MEDS: SENNOSIDES-DOCUSATE SODIUM 1 EACH TAB PO SCH (21:20)
[2020-12-29] MEDS: LEVOTHYROXINE 25 MCG TAB PO SCH (21:20)
[2020-12-29] MEDS: SERTRALINE 25 MG TAB PO SCH (21:20)
[2020-12-29 21:34] LABS: Albumin 3.9 g/dL (3.5-5.0); Potassium 3.9 mmol/L (3.5-5.1); Total Bilirubin 4.1 mg/dL (0.2-1.3); Total Protein 5.6 g/dL (6.3-8.2)
[2020-12-29 21:35] LABS: D-Dimer 9.61 mg/L FEU (<0.60); INR 2.4 (<1.2); Partial Thromboplastin Time 34.1 sec (22.0-30.0); Prothrombin Time 23.5 sec (9.0-12.0)
[2020-12-29 21:41] LABS: Allen Test Performed? Yes
[2020-12-29 21:42] LABS: ABG Base Excess 1.5 mmol/L; ABG HCO3 26 mmol/L (21-25); ABG Oxygen Saturation 97.6 % (94-97); ABG PCO2 39 mmHg (35-45); ABG PH 7.43 (7.35-7.45); ABG PO2 102 mmHg (83-108); ABG TCO2 27 mmol/L (19-24)
[2020-12-29 22:02] LABS: Glucose,Whole Blood 78 mg/dL (75-99)
[2020-12-29 22:12] LABS: Anisocytosis (M) Present; Lymphocytes # (M) 0.79 k/uL (1.0-4.8); Metamyelocytes # (M) 0.13 k/uL (0); Metamyelocytes % 1 %; Monocytes # (M) 1.18 k/uL (0-1.0); Neutrophils # (M) 11.14 k/uL (1.3-7.7); Neutrophils % (M) 85 %; Nucleated Red Blood Cells 7 /100 WBC (0-0); Total Cells Counted 200; WBC 13.1 k/uL (3.8-10.6)
[2020-12-29 22:13] LABS: Polychromasia Present
[2020-12-29] MEDS ORDERED: CALCIUM GLUCONATE 1 GM in SODIUM CHLORIDE 0.9% 100 ML IVPB ONE (22:38)
[2020-12-29] MEDS: ONDANSETRON 4 MG/2 ML VIAL IVP PRN (22:54)
[2020-12-29] MEDS: DEXTROSE 5%-0.9% NACL 1,000 ML IV SCH (23:07)
[2020-12-30 00:24] LABS: Glucose,Whole Blood 78 mg/dL (75-99)
[2020-12-30] MEDS: POTASSIUM CHLORIDE 10 MEQ in WATER FOR INJECTION 1 100ML.BAG IVPB SCH ×2 (01:05→02:11)
[2020-12-30] MEDS: PHENYLEPHRINE 40 MG in SODIUM CHLORIDE 0.9% 250 ML IV SCH (01:30)
[2020-12-30 02:00] LABS: Glucose,Whole Blood 96 mg/dL (75-99)
[2020-12-30 03:52] LABS: Glucose,Whole Blood 110 mg/dL (75-99)
[2020-12-30 04:15] LABS: INR 2.6 (<1.2); Partial Thromboplastin Time 30.2 sec (22.0-30.0); Prothrombin Time 25.1 sec (9.0-12.0)
[2020-12-30 04:32] LABS: Albumin 3.8 g/dL (3.5-5.0); Calcium 7.9 mg/dL (8.4-10.2); Magnesium 2.2 mg/dL (1.6-2.3); Potassium 4.3 mmol/L (3.5-5.1); Total Protein 5.5 g/dL (6.3-8.2)
[2020-12-30 04:33] LABS: HCT 25.5 % (34.0-46.0); MCH 31.8 pg (25.0-35.0); MCHC 35.4 g/dL (31.0-37.0); MCV 89.7 fL (80.0-100.0); Mean Platelet Volume 11.2; Poikilocytosis Slight; RBC 2.84 m/uL (3.80-5.40); RDW 15.2 % (11.5-15.5); WBC 13.3 k/uL (3.8-10.6)
[2020-12-30 04:35] LABS: Platelet Count 24 k/uL (150-450)
[2020-12-30 04:57] LABS: Anisocytosis (M) Present; Lymphocytes # (M) 1.06 k/uL (1.0-4.8); Monocytes # (M) 1.33 k/uL (0-1.0); Neutrophils # (M) 10.91 k/uL (1.3-7.7); Neutrophils % (M) 82 %; Nucleated Red Blood Cells 0 /100 WBC (0-0); Polychromasia Present; Total Cells Counted 100
[2020-12-30] MEDS ORDERED: CALCIUM GLUCONATE 2 GM in SODIUM CHLORIDE 0.9% 100 ML IVPB ONE (05:28)
[2020-12-30 05:39] LABS: Digoxin 2.9 ng/mL
[2020-12-30 06:00] LABS: Glucose,Whole Blood 125 mg/dL (75-99)
--- NOTE | 2020-12-30 06:42 | P.PN ---
Subjective Progress Note Date: 12/30/20 55-year-old female patient with known history of aortic valve stenosis along with hypertension and hyperlipidemia and hypothyroidism and previous history of CVA involving the right eye, was having some exertional dyspnea. The patient underwent a cardiac echo and the patient was found to have an ejection fraction of 55-60% along with LVH mild to moderate MR, bicuspid severely calcified aortic valve with a valve area of 0.6 cm and a gradient of 73 along with moderate aortic regurgitation, moderate tricuspid regurgitation and hypertension. The patient also underwent cardiac catheterization and FIDEL for further evaluation. The cath showed right coronary artery stenosis in the order of 85% without any significant coronary artery disease. The transthoracic echocardiogram showed severe aortic stenosis with a valve area of 0.5 cm. Based on that, the patient was taken to the operating room and the patient underwent a aVR and the patient also underwent a single-vessel bypass surgery with SVG to RCA. Currently the patient is in intensive care unit. She is sedated with propofol which is runni ng at 25 mcg/kg per minute. She is on a mechanical ventilator on assist control mode at the rate of 12 and tidal volume of 400 and FiO2 of 50% with a PEEP of 5. The rate will be increased to 29. The blood. Showed a pH of 7.33 with a pCO2 of 50 and pO2 of 317. FiO2 has been drop down to 50% already. The peak airway pressures 24. Hemodynamically, the patient is doing okay. She has a cardiac output of-0 and an index of 3.1. She is on no inotropes for now. She is on Catapres drip at 2 mg an hour with adequate blood pressure control. She has his [place]-Kelli catheter in the right IJ. She has chest tubes involving the right pleural, and mediastinal. Sternum stable clean and intact for now. The chest tubes are connected and the total amount of output has been around 100 mL bloody output since the patient came in from the operating room. No evidence of any air leak at this point in time. She is producing urine output around 50 mL an hour. She is cold and the body temperature has returned back to normal 12/27/2020 the patient is being seen for follow-up. The patient was extubated yesterday without any major issues and currently she is on oxygen at 5 L with a pulse ox of 88-90%. Hemodynamically, the patient is doing well. She is off cleviprex for now.. Her most recent cardiac index is 2.7. She is producing adequate amount of urine output. The chest x-ray from today shows some small effusion the left lung base. [place]-Kelli catheter good location. The patient has a right-sided pleural chest tube and a mediastinal chest tube and that is no evidence of any air leak and the chest x-ray is not showing any evidence of pneumothorax. Lungs are well expanded. There are some atelectatic changes in lung bases bilaterally. Pulmonary artery pressure is low at 20/10 and the patient is going to receive some more volume today. Output from the chest tube has been a total of 200 mL since arrival from the operating room. Note that both of the chest tubes are connected at this point in time. As mentioned, no evidence of any air leak and the patient is using incentive spirometer. Surgical wound site is dry clean and intact. 12/28/2020 the patient is being seen in follow-up. There is been significant change the patient's condition as of 7 PM yesterday. Note that the patient became progressively more hypotensive and oliguric and sacral patient went into a shock state. Consider the possibility of a cardiogenic shock. [place]-Kelli catheter is on the been taken out. Cardiac index earlier was in the order of 2.5 prior to catheter removal. In any rate, the patient became oliguric, hypotensive, became acidotic and the lactic acid level came up to 7.6. At that point, the patient was becoming more short of breath. She was placed on a BiPAP which is still running at a pressure of 12/5 with an FiO2 of 90%. There was a component of metabolic acidosis along with lactic acidosis with a pH of 7.32 and a pCO2 of 35 and pO2 of 78. The patient was given a total of 5 ampules of bicarb and the most recent blood test shows a pH of 7.36 with a pCO2 of 40 and p O2 of 71. At this point in time, the patient is lethargic, on a BiPAP, she is on a combination of dopamine running at 3 mg/kg per minute and Primacor running at 0.2 mcg/kg per minute. Most recent blood pressure is in the order of 140. Cardiac rhythm is sinus. Heart the mid 70s. Pulse is 94% while being on a BiPAP. The patient is going to a shock liver. AST is up to 1140 and ALT is up to 662 with a bilirubin of 1.9. Most recent lactic acid level is at 8.6. Urine output was low and subsequently was improved and currently is up to 30 mL an hour. Hemoglobin from this morning was at 6.8 and the patient is receiving units of packed RBC. Her current CVP is around 17. Echocardiogram is to follow. Chest x-ray from today showing a component of pulmonary vessel congestion/interstitial edema. The patient is a mediastinal and the right pleural chest tube and output is minimal at this point and there is no evidence of any pneumothorax. Overall output from the chest is of the 400 mL since yesterday's shift. 12/29/2020, major events occurring in the patient's care since her surgery. Of concern is the hemodynamic instability, low urine output, lactic acidosis and shock state including a shock liver, and acute kidney injury. Ischemic bowel was suspected knowing that the patient's aorta was heavily calcified and there is a concern for bowel embolism and the time of surgery. In any rate, her abdomen is soft and nontender. Her lactic acid level has improved with fluid resuscitation. The patient went on a combination of dopamine and Primacor. Ejection fraction on a stat echocardiogram showed that the heart was hyperdynamic. For now, the Primacor is running at 0.2 mg/kg per minute. Dopamine is running at 6 mcg/kg per minute. The patient has received fluid boluses. Urine output is no order of 5-10 mL an hour. Lasix drip was started at 15 mg an hour currently and urine output remains low. The patient is having short runs of atrial flutter. In fact this morning at time of my evaluation, she went to a flutter with rapid ventricular response at a heart rate of 135. She remains on BiPAP at a pressure of 12/5 cm of water with an FiO2 of 60%. Chest x-ray shows pulmonary edema. There is a right pleural and mediastinal chest tube. No evidence of an air leak. No evidence of any pneumothorax. Output from the chest tubes have been in the order of 20 mL an hour. She is awake. She is complaining of pain in her chest soreness and the surgical wound site. Her labs are still pending from this morning. The labs from yesterday showed shock liver, elevation in AST and ALT and the subsequent labs from earlier this morning are still pending for now. Serum bicarb is 24 from yesterday. Creatinine is up to 2.1. AST was 11,124 and ALT is 4387. CBC is also showing a hemoglobin of 6 with a platelet count of 26. No signs of any acute bleeding at this point in time. 27 2020, the patient remains on a BiPAP at a pressure of 12/5 cm of water with an FiO2 of 50%. She is quite comfortable, degenerative tidal volumes around 480 with a respiratory rate of 20 and minute ventilation of 9.5 L per minute. The chest x-ray showing postsurgical changes. Some interstitial infiltrates bilaterally and prominent vascular markings. No signs of any massive fluid ov erload. Left lower lobe is atelectatic and there may be some small effusions. The patient has a mediastinal chest tube and a right pleural chest tube. Atrial. Was seen. No evidence of any pneumothorax. The right IJ Cordis is still in place. Output from the chest tubes combined has been in the order of 4 50 mL over the past 12 hours. Note that the patient's blood work has shown development of significant thrombocytopenia and anemia. The patient was transfused.. The patient was given multiple transfusions yesterday and the patient a total of 2 units of packed RBC, platelet transfusion, fresh frozen plasma and most recent hemoglobin from this morning is at 9 with a platelet count of 24 after having a platelet count as high as 46. As such, another platelet transfusion was ordered for her. No concerns of any acute bleeding. She has developed some petechiae in her upper chest area. Surgical wound site is dry clean and intact. The catheter site including the femoral venous miley lysis catheter site is dry clean and intact and there is no formation of any hematoma.. Coagulation profile is abnormal. The INR today is at 2.6 with a PT of 25 and a PTT of 30.2. The patient was also given vitamin K earlier. The patient was given calcium gluconate. D-dimer is at 9.6. This is probably related to her shock liver versus a mild component of DIC. Her syndrome is felt to be unlikely at this point in time. Antibodies were sent. Hemodynamically, the patient remains in atrial fibrillation. She is on IV fluids running at 50 mL an hour of D5 half-normal saline. Agustín-Synephrine infusion is running at 0.4 mcg/kg per minute. Urine output is almost absent. The patient's creatinine is down to 2.1 today and she received a session of slow high-efficiency dialysis yesterday during which she remains quite hemodynamically stable and she was able to tolerate without any major difficulties. Digoxin level came at 2.9 after being loaded with a total of 1 mg of digoxin yesterday. Liver function tests are slightly improved on today's evaluation. AST is down to 8000, ALT is down to 2007 100, alkaline phosphatase is 74. Her ionized calcium today was for which is obviously low. Serum albumin is at 3.8 with a total protein of 5.5. She is moving all 4 extremities. Abdomen is soft. She is awake. She is conscious. She is passing flatus. She has developed some edema in the upper and lower extremities bilaterally. Dialysis is to follow today. Objective - Vital Signs Vital signs: Vital Signs Temp 97.8 F 12/30/20 04:00 Pulse 107 H 12/30/20 05:00 Resp 18 12/30/20 05:00 BP 128/72 12/30/20 05:00 Pulse Ox 95 12/30/20 05:00 Intake & Output 12/29/20 12/29/20 12/30/20 06:59 18:59 06:59 Intake Total 491.552 3564.05 2237.026 Output Total 921 250 1131 Balance 086.019 5308.05 -1247.974 Weight 70.7 kg Intake: IV 325 219 7296 0.9 NaCl 480 540 200 Albumin Human 5% 250 ml 250 In Empty Bag 1 bag @ 250 mls/hr IVPB Q1HR PRN Rx#: [id number] Calcium gluconate 100 D5.9 320 PRBC's 310 Potassium Chloride 200 Zosyn 100 pressure bags 72 66 72 Intake, IV Titration 160.356 286.05 191.026 Amount Albumin Human 25% 50 ml 50 In Empty Bag 1 bag @ 50 mls/hr IVPB ONCE ONE Rx#: [id number] Furosemide 100 mg In 181 Sodium Chloride 0.9% 90 ml @ 20 MG/HR 20 mls/hr IV .Q5H [facility] Rx#:[id number] Milrinone-D5w Pmx 20 mg 110.356 In Dextrose/Water 1 100ml .bag @ 0.1 MCG/KG/MIN 1. 998 mls/hr IV .Q24H [facility] Rx#:[id number] Phenylephrine 40 mg In 105.05 191.026 Sodium Chloride 0.9% 250 ml @ 0.5 MCG/KG/MIN 13. 468 mls/hr IV .[id number] [facility] Rx#:[id number] Blood Product 3513 744 Ffp 24 Cpd Unit 2623 [id number] Ffp 24 Cpd Unit 307 [id number] Platelet Pheresis Acd-A 0 434 Pasc 1 Unit [id number] Platelet Pheresis Acd-A 273 Pasc 2 Unit [id number] Rc As-1 Unit 310 [id number] Rc As-1 Unit 310 [id number] Output: Chest Tube Drainage 170 390 480 Right Pleural/Mediastinal 170 390 480 Urine 45 23 5 Hemodialysis 3000 Other: Voiding Method Indwelling Catheter Indwelling Catheter Indwelling Catheter ABP, PAP, CO, CI - Last Documented Arterial Blood Pressure 116/46 Pulmonary Artery Pressure 12/5 Cardiac Output 4.2 Cardiac Index 2.6 - Exam Gen. appearance she is calm and currently on a BiPAP at a pressure of 12/5 with an FiO2 of 50%. She is quite comfortable and synchronous with the machine. Head exam was generally normal. There was no scleral icterus or corneal arcus. Mucous membranes were moist. Neck was supple and without jugular venous distension, thyromegaly, or carotid bruits. Carotids were easily palpable bilaterally. There was no adenopathy. The patient has a right IJ [place]-Kelli catheter, has been removed and the patient currently has a Cordis in place Lungs sounds are equal and symmetrical breath sounds bilaterally and the patient is a right pleural and mediastinal chest tube Cardiac exam revealed the PMI to be normally situated and sized. The rhythm was regular and no extrasystoles were noted during several minutes of auscultation. The first and second heart sounds were normal and physiologic splitting of the second heart sound was noted. There were no murmurs, rubs, clicks, or gallops. Abdominal exam revealed normal bowel sounds. The abdomen was soft, non-tender, and without masses, organomegaly, or appreciable enlargement of the abdominal aorta. Examination of the extremities revealed easily palpable radial, femoral and pedal pulses. There was no cyanosis, clubbing or edema. Examination of the skin revealed no evidence of significant rashes, suspicious appearing nevi or other concerning lesions. Neurologic , no focal neurological deficit and the patient is awake and alert 3 - Labs CBC & Chem 7: 12/30/20 03:57 12/30/20 03:57 Labs: Abnormal Lab Results - Last 24 Hours (Table) 12/28/20 12/29/20 12/29/20 Range/Units 04:25 04:40 04:40 WBC 14.6 H (3.8-10.6) k/uL RBC 1.94 L (3.80-5.40) m/uL Hgb 6.0 L* D (11.4-16.0) gm/dL Hct 17.9 L* (34.0-46.0) % RDW 16.7 H (11.5-15.5) % Plt Count 26 L D (150-450) k/uL Neutrophils # 12.8 H (1.3-7.7) k/uL Neutrophils # (Manual) (1.3-7.7) k/uL Lymphocytes # 0.6 L (1.0-4.8) k/uL Lymphocytes # (Manual) (1.0-4.8) k/uL Monocytes # (Manual) (0-1.0) k/uL Metamyelocytes # (Man) (0) k/uL Nucleated RBCs (0-0) /100 WBC PT (9.0-12.0) sec INR (<1.2) APTT (22.0-30.0) sec Fibrinogen (200-500) mg/dL D-Dimer (<0.60) mg/L FEU ABG HCO3 (21-25) mmol/L ABG Total CO2 (19-24) mmol/L ABG O2 Saturation (94-97) % ABG Lactic Acid (0.5-1.6) mmol/L Carbon Dioxide (22-30) mmol/L BUN 53 H (7-17) mg/dL Creatinine 2.77 H (0.52-1.04) mg/dL Glucose 125 H (74-99) mg/dL POC Glucose (mg/dL) (75-99) mg/dL Plasma Lactic Acid Iraj (0.7-2.0) mmol/L Calcium 7.8 L (8.4-10.2) mg/dL Ionized Calcium Beatrice (4.5-5.3) mg/dL Total Bilirubin 3.0 H (0.2-1.3) mg/dL AST 20806 H (14-36) U/L ALT 3572 H (4-34) U/L Total Protein 5.4 L (6.3-8.2) g/dL Digoxin ng/mL Hep Bs Antibody (Non-Reactive) Crossmatch See Detail 12/29/20 12/29/20 12/29/20 Range/Units 07:12 09:07 11:10 WBC (3.8-10.6) k/uL RBC (3.80-5.40) m/uL Hgb (11.4-16.0) gm/dL Hct (34.0-46.0) % RDW (11.5-15.5) % Plt Count (150-450) k/uL Neutrophils # (1.3-7.7) k/uL Neutrophils # (Manual) (1.3-7.7) k/uL Lymphocytes # (1.0-4.8) k/uL Lymphocytes # (Manual) (1.0-4.8) k/uL Monocytes # (Manual) (0-1.0) k/uL Metamyelocytes # (Man) (0) k/uL Nucleated RBCs (0-0) /100 WBC PT 32.1 H (9.0-12.0) sec INR 3.3 H (<1.2) APTT 37.7 H (22.0-30.0) sec Fibrinogen (200-500) mg/dL D-Dimer (<0.60) mg/L FEU ABG HCO3 (21-25) mmol/L ABG Total CO2 (19-24) mmol/L ABG O2 Saturation (94-97) % ABG Lactic Acid (0.5-1.6) mmol/L Carbon Dioxide (22-30) mmol/L BUN (7-17) mg/dL Creatinine (0.52-1.04) mg/dL Glucose (74-99) mg/dL POC Glucose (mg/dL) 127 H (75-99) mg/dL Plasma Lactic Acid Iraj (0.7-2.0) mmol/L Calcium (8.4-10.2) mg/dL Ionized Calcium Beatrice (4.5-5.3) mg/dL Total Bilirubin (0.2-1.3) mg/dL AST (14-36) U/L ALT (4-34) U/L Total Protein (6.3-8.2) g/dL Digoxin ng/mL Hep Bs Antibody Reactive A (Non-Reactive) Crossmatch 12/29/20 12/29/20 12/29/20 Range/Units 11:10 12:09 15:15 WBC (3.8-10.6) k/uL RBC (3.80-5.40) m/uL Hgb (11.4-16.0) gm/dL Hct (34.0-46.0) % RDW (11.5-15.5) % Plt Count (150-450) k/uL Neutrophils # (1.3-7.7) k/uL Neutrophils # (Manual) (1.3-7.7) k/uL Lymphocytes # (1.0-4.8) k/uL Lymphocytes # (Manual) (1.0-4.8) k/uL Monocytes # (Manual) (0-1.0) k/uL Metamyelocytes # (Man) (0) k/uL Nucleated RBCs (0-0) /100 WBC PT (9.0-12.0) sec INR (<1.2) APTT (22.0-30.0) sec Fibrinogen (200-500) mg/dL D-Dimer (<0.60) mg/L FEU ABG HCO3 (21-25) mmol/L ABG Total CO2 (19-24) mmol/L ABG O2 Saturation (94-97) % ABG Lactic Acid (0.5-1.6) mmol/L Carbon Dioxide (22-30) mmol/L BUN (7-17) mg/dL Creatinine (0.52-1.04) mg/dL Glucose (74-99) mg/dL POC Glucose (mg/dL) 117 H (75-99) mg/dL Plasma Lactic Acid Iraj 3.9 H* (0.7-2.0) mmol/L Calcium (8.4-10.2) mg/dL Ionized Calcium Beatrice 3.8 L (4.5-5.3) mg/dL Total Bilirubin (0.2-1.3) mg/dL AST (14-36) U/L ALT (4-34) U/L Total Protein (6.3-8.2) g/dL Digoxin ng/mL Hep Bs Antibody (Non-Reactive) Crossmatch 12/29/20 12/29/20 12/29/20 Range/Units 15:15 16:45 16:46 WBC 14.1 H (3.8-10.6) k/uL RBC 2.42 L (3.80-5.40) m/uL Hgb 7.5 L D (11.4-16.0) gm/dL Hct 22.0 L (34.0-46.0) % RDW 16.1 H (11.5-15.5) % Plt Count 54 L D (150-450) k/uL Neutrophils # (1.3-7.7) k/uL Neutrophils # (Manual) 13.25 H (1.3-7.7) k/uL Lymphocytes # (1.0-4.8) k/uL Lymphocytes # (Manual) 0.42 L (1.0-4.8) k/uL Monocytes # (Manual) (0-1.0) k/uL Metamyelocytes # (Man) (0) k/uL Nucleated RBCs 2 H (0-0) /100 WBC PT (9.0-12.0) sec INR (<1.2) APTT (22.0-30.0) sec Fibrinogen (200-500) mg/dL D-Dimer (<0.60) mg/L FEU ABG HCO3 26 H (21-25) mmol/L ABG Total CO2 27 H (19-24) mmol/L ABG O2 Saturation 97.6 H (94-97) % ABG Lactic Acid (0.5-1.6) mmol/L Carbon Dioxide (22-30) mmol/L BUN (7-17) mg/dL Creatinine (0.52-1.04) mg/dL Glucose (74-99) mg/dL POC Glucose (mg/dL) 100 H (75-99) mg/dL Plasma Lactic Acid Iraj (0.7-2.0) mmol/L Calcium (8.4-10.2) mg/dL Ionized Calcium Beatrice (4.5-5.3) mg/dL Total Bilirubin (0.2-1.3) mg/dL AST (14-36) U/L ALT (4-34) U/L Total Protein (6.3-8.2) g/dL Digoxin ng/mL Hep Bs Antibody (Non-Reactive) Crossmatch 12/29/20 12/29/20 12/29/20 Range/Units 20:54 21:08 21:08 WBC 13.1 H (3.8-10.6) k/uL RBC 2.38 L (3.80-5.40) m/uL Hgb 7.4 L (11.4-16.0) gm/dL Hct 21.4 L (34.0-46.0) % RDW 16.0 H (11.5-15.5) % Plt Count 46 L (150-450) k/uL Neutrophils # (1.3-7.7) k/uL Neutrophils # (Manual) 11.14 H (1.3-7.7) k/uL Lymphocytes # (1.0-4.8) k/uL Lymphocytes # (Manual) 0.79 L (1.0-4.8) k/uL Monocytes # (Manual) 1.18 H (0-1.0) k/uL Metamyelocytes # (Man) 0.13 H (0) k/uL Nucleated RBCs 7 H (0-0) /100 WBC PT 23.5 H (9.0-12.0) sec INR 2.4 H (<1.2) APTT 34.1 H (22.0-30.0) sec Fibrinogen (200-500) mg/dL D-Dimer 9.61 H (<0.60) mg/L FEU ABG HCO3 (21-25) mmol/L ABG Total CO2 27 H (19-24) mmol/L ABG O2 Saturation (94-97) % ABG Lactic Acid (0.5-1.6) mmol/L Carbon Dioxide (22-30) mmol/L BUN (7-17) mg/dL Creatinine (0.52-1.04) mg/dL Glucose (74-99) mg/dL POC Glucose (mg/dL) (75-99) mg/dL Plasma Lactic Acid Iraj (0.7-2.0) mmol/L Calcium (8.4-10.2) mg/dL Ionized Calcium Beatrice (4.5-5.3) mg/dL Total Bilirubin (0.2-1.3) mg/dL AST (14-36) U/L ALT (4-34) U/L Total Protein (6.3-8.2) g/dL Digoxin ng/mL Hep Bs Antibody (Non-Reactive) Crossmatch 12/29/20 12/29/20 12/30/20 Range/Units 21:08 21:08 03:00 WBC (3.8-10.6) k/uL RBC (3.80-5.40) m/uL Hgb (11.4-16.0) gm/dL Hct (34.0-46.0) % RDW (11.5-15.5) % Plt Count (150-450) k/uL Neutrophils # (1.3-7.7) k/uL Neutrophils # (Manual) (1.3-7.7) k/uL Lymphocytes # (1.0-4.8) k/uL Lymphocytes # (Manual) (1.0-4.8) k/uL Monocytes # (Manual) (0-1.0) k/uL Metamyelocytes # (Man) (0) k/uL Nucleated RBCs (0-0) /100 WBC PT (9.0-12.0) sec INR (<1.2) APTT (22.0-30.0) sec Fibrinogen (200-500) mg/dL D-Dimer (<0.60) mg/L FEU ABG HCO3 (21-25) mmol/L ABG Total CO2 (19-24) mmol/L ABG O2 Saturation (94-97) % ABG Lactic Acid 4.3 H* 4.2 H* (0.5-1.6) mmol/L Carbon Dioxide (22-30) mmol/L BUN 27 H (7-17) mg/dL Creatinine 1.77 H (0.52-1.04) mg/dL Glucose (74-99) mg/dL POC Glucose (mg/dL) (75-99) mg/dL Plasma Lactic Acid Iraj (0.7-2.0) mmol/L Calcium 8.0 L (8.4-10.2) mg/dL Ionized Calcium Beatrice (4.5-5.3) mg/dL Total Bilirubin 4.1 H (0.2-1.3) mg/dL AST 9427 H (14-36) U/L ALT 2898 H (4-34) U/L Total Protein 5.6 L (6.3-8.2) g/dL Digoxin ng/mL Hep Bs Antibody (Non-Reactive) Crossmatch 12/30/20 12/30/20 12/30/20 Range/Units 03:50 03:57 03:57 WBC 13.3 H (3.8-10.6) k/uL RBC 2.84 L (3.80-5.40) m/uL Hgb 9.0 L D (11.4-16.0) gm/dL Hct 25.5 L (34.0-46.0) % RDW (11.5-15.5) % Plt Count 24 L (150-450) k/uL Neutrophils # (1.3-7.7) k/uL Neutrophils # (Manual) 10.91 H (1.3-7.7) k/uL Lymphocytes # (1.0-4.8) k/uL Lymphocytes # (Manual) (1.0-4.8) k/uL Monocytes # (Manual) 1.33 H (0-1.0) k/uL Metamyelocytes # (Man) (0) k/uL Nucleated RBCs (0-0) /100 WBC PT 25.1 H (9.0-12.0) sec INR 2.6 H (<1.2) APTT 30.2 H (22.0-30.0) sec Fibrinogen (200-500) mg/dL D-Dimer (<0.60) mg/L FEU ABG HCO3 (21-25) mmol/L ABG Total CO2 (19-24) mmol/L ABG O2 Saturation (94-97) % ABG Lactic Acid (0.5-1.6) mmol/L Carbon Dioxide (22-30) mmol/L BUN (7-17) mg/dL Creatinine (0.52-1.04) mg/dL Glucose (74-99) mg/dL POC Glucose (mg/dL) 110 H (75-99) mg/dL Plasma Lactic Acid Iraj (0.7-2.0) mmol/L Calcium (8.4-10.2) mg/dL Ionized Calcium Beatrice (4.5-5.3) mg/dL Total Bilirubin (0.2-1.3) mg/dL AST (14-36) U/L ALT (4-34) U/L Total Protein (6.3-8.2) g/dL Digoxin ng/mL Hep Bs Antibody (Non-Reactive) Crossmatch 12/30/20 12/30/20 12/30/20 Range/Units 03:57 03:57 03:57 WBC (3.8-10.6) k/uL RBC (3.80-5.40) m/uL Hgb (11.4-16.0) gm/dL Hct (34.0-46.0) % RDW (11.5-15.5) % Plt Count (150-450) k/uL Neutrophils # (1.3-7.7) k/uL Neutrophils # (Manual) (1.3-7.7) k/uL Lymphocytes # (1.0-4.8) k/uL Lymphocytes # (Manual) (1.0-4.8) k/uL Monocytes # (Manual) (0-1.0) k/uL Metamyelocytes # (Man) (0) k/uL Nucleated RBCs (0-0) /100 WBC PT (9.0-12.0) sec INR (<1.2) APTT (22.0-30.0) sec Fibrinogen 178 L (200-500) mg/dL D-Dimer (<0.60) mg/L FEU ABG HCO3 (21-25) mmol/L ABG Total CO2 (19-24) mmol/L ABG O2 Saturation (94-97) % ABG Lactic Acid (0.5-1.6) mmol/L Carbon Dioxide 21 L (22-30) mmol/L BUN 33 H (7-17) mg/dL Creatinine 2.18 H (0.52-1.04) mg/dL Glucose 105 H (74-99) mg/dL POC Glucose (mg/dL) (75-99) mg/dL Plasma Lactic Acid Iraj (0.7-2.0) mmol/L Calcium 7.9 L (8.4-10.2) mg/dL Ionized Calcium Beatrice 4.0 L (4.5-5.3) mg/dL Total Bilirubin 5.0 H (0.2-1.3) mg/dL AST 8066 H (14-36) U/L ALT 2707 H (4-34) U/L Total Protein 5.5 L (6.3-8.2) g/dL Digoxin 2.9 H* ng/mL Hep Bs Antibody (Non-Reactive) Crossmatch 12/30/20 Range/Units 05:58 WBC (3.8-10.6) k/uL RBC (3.80-5.40) m/uL Hgb (11.4-16.0) gm/dL Hct (34.0-46.0) % RDW (11.5-15.5) % Plt Count (150-450) k/uL Neutrophils # (1.3-7.7) k/uL Neutrophils # (Manual) (1.3-7.7) k/uL Lymphocytes # (1.0-4.8) k/uL Lymphocytes # (Manual) (1.0-4.8) k/uL Monocytes # (Manual) (0-1.0) k/uL Metamyelocytes # (Man) (0) k/uL Nucleated RBCs (0-0) /100 WBC PT (9.0-12.0) sec INR (<1.2) APTT (22.0-30.0) sec Fibrinogen (200-500) mg/dL D-Dimer (<0.60) mg/L FEU ABG HCO3 (21-25) mmol/L ABG Total CO2 (19-24) mmol/L ABG O2 Saturation (94-97) % ABG Lactic Acid (0.5-1.6) mmol/L Carbon Dioxide (22-30) mmol/L BUN (7-17) mg/dL Creatinine (0.52-1.04) mg/dL Glucose (74-99) mg/dL POC Glucose (mg/dL) 125 H (75-99) mg/dL Plasma Lactic Acid Iraj (0.7-2.0) mmol/L Calcium (8.4-10.2) mg/dL Ionized Calcium Beatrice (4.5-5.3) mg/dL Total Bilirubin (0.2-1.3) mg/dL AST (14-36) U/L ALT (4-34) U/L Total Protein (6.3-8.2) g/dL Digoxin ng/mL Hep Bs Antibody (Non-Reactive) Crossmatch Microbiology - Last 24 Hours (Table) 12/28/20 15:19 Blood Culture - Preliminary Blood No Growth after 24 hours Assessment and Plan Plan: 1 aortic valve replacement and single-vessel bypass surgery with SVG to RCA and a left atrial clipping and the patient is currently postop day #4. The major hemodynamic changes has been noted. The patient went into shock postop. The patient had a hyperdynamic LV. Exact cause for this shock is not clear. Consider possibility of bowel ischemia. The patient is still being supported here in the intensive care unit. At this point in time she remains on BiPAP. She remains on Agustín-Synephrine for hemodynamic support her blood pressure support. She is in atrial fibrillation. She is in shock liver and acute kidney injury and possibly a component of DIC. The patient received hemodialysis yesterday. Blood products have been infused. Chest tubes are still in place. Despite all this, the patient is awake and alert and following commands. No neurological deficits. Surgical wound site is dry clean and intact. Chest tube s are still in place. 2 post thoracotomy, currently on BiPAP for respiratory support. Chest x-ray showing interstitial edema. All of the chest tubes are in place and there is no evidence of any air leak or pneumothorax. The output from the chest tubes has been noted 3 severe lactic acidosis, considered the possibility of a cardiogenic shock lactic acid level is improving , the last lactic acid level is at 4.2. 4 shock liver secondary to above, the patient had developed abnormal LFTs, co agulopathy and thrombocytopenia along with a component of DIC, blood products have been given and the patient received a total of 2 units of packed RBC, making a total of 4 since her surgery in addition to fresh frozen plasma and platelet transfusion 3 times for 5 anemia with acute drop in hemoglobin/thrombocytopenia, more related to above and the patient got transfused blood products. Calcium was also given. 6 acute kidney injury secondary to shock-induced ATN. There has been initiated yesterday. Dialysis catheter is present in the femoral vein. Second session of dialysis be administered today. Electrolytes are normal. No urine output at this point in time. Potassium level is normal. No significant acidosis. 7 coagulopathy, likely secondary to shock liver/DIC I doubt Jimbo syndrome 8 hyperlipidemia 9 hypothyroidism 10 degenerative arthritis with chronic back and hip pain 11 history of CVA 12 episodes of atrial flutter with rapid ventricular response , digitalized y and the digoxin level is 2.9 and this is to be stopped and the digoxin level was monitored. The rate is controlled for now and the patient remains on Agustín-Synephrine drip. Milrinone has been discontinued. Plan Continue BiPAP 09/09 with an FiO2 of 50% Keep nothing by mouth No feeding for today Chest x-ray from today was noted There are some signs of ongoing fluid overload both in the chest x-ray and on examination with the patient's edematous in all 4 extremities and the patient will require hemodialysis again Transfuse total of 4 units of packed RBC along with platelet transfusion 3, FFP 2 hour monitoring the hematologic profile. We'll prepare another platelet transfusion regarding an underlying thrombocytopenia Monitor CVP which is currently at 18-20 Monitor Zachary level and hold digoxin for now for level of 2.9 IV fluids at to be reduced to 40 mL an hour Monitor lactic acid level , LFTs, renal function and hemoglobin Repeat coagulation profile Keep chest tubes in place We'll continue to follow. Keep in ICU for another 24 hours. Patient is critical. Discussed the case with cardiothoracic surgery. All of the labs were repeated at around 1 PM today. We'll continue to follow. Critically care evaluation more than 30 minutes. Time with Patient: Greater than 30
--- NOTE | 2020-12-30 06:59 | XR ---
EXAMINATION TYPE: XR chest 1V portable DATE OF EXAM: 12/30/2020 COMPARISON: 12/29/2020 HISTORY: Shortness of breath TECHNIQUE: Single frontal view of the chest is obtained. FINDINGS: There is cephalization of the pulmonary vasculature, interstitial opacity and small left pleural effu adam likely indicating mild CHF. There has been no significant interval change. There is a mediastinal tube and a right-sided chest tube with a small unchanged apical pneumothorax. The osseous structures are intact. IMPRESSION: No change in the pulmonary vascular congestion, interstitial edema and left pleural effusion. No kerns ge in small right apical pneumothorax with a right chest tube unchanged in position.
[2020-12-30 08:11] LABS: Glucose,Whole Blood 138 mg/dL (75-99)
[2020-12-30] MEDS: IPRATROPIUM-ALBUTEROL 3 ML NEB INHALATION SCH ×4 (08:41→20:44)
[2020-12-30] MEDS: PANTOPRAZOLE 40 MG/10 ML VIAL IVP SCH ×2 (08:53→20:17)
--- NOTE | 2020-12-30 08:53 | P.PN ---
Subjective Progress Note Date: 12/30/20 Principal diagnosis: Severe bicuspid aortic valve stenosis, coronary artery disease. 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, right internal carotid artery stenosis 50-79% per Doppler, previous tobacco dependence with moderate obstructive lung disease and preoperative FEV1 56% of predicted, preoperative elevation of AST and ALT, degenerative arthritis with chronic back pain, and fam chato history of colon cancer POD #4 aortic valve replacement with #21 mm Jackson Inspiris bioprosthetic aortic valve, coronary artery bypass grafting 1 with reverse saphenous vein graft off the aorta to the right coronary artery, clip ligation of the left atrial appendage with a 35 mm AtriClip, intraoperative transesophageal echocardiogram. Postoperative acute blood loss anemia, expected secondary to hemodilution and cardiopulmonary bypass pump, status post PRBC transfusion Hypotension requiring pressor use Acute kidney injury secondary to hypoperfusion requiring initiation of dialysis Shock liver secondary to hypoperfusion Lactic acidosis secondary to hypoperfusion Hypoxic respiratory failure requiring BiPAP Thrombocytopenia A. fib with RVR, known common occurrence after open heart surgery The patient was seen and examined this morning the intensive care unit. She does complain of post surgical pain which is relieved with IV fentanyl, some shortness of breath. She remains on BiPAP with good oxygenation on 50% FiO2. Her blood pressure stable on low-dose Agustín-Synephrine. She has converted back to sinus rhythm with first-degree AV block this morning. Blood cultures were drawn yesterday, pending but negative so far. Pro-calcitonin 0.26, remains afebrile. Continues on IV Zosyn. WBC 13.3, hemoglobin 9.0, platelet count 24,000, BUN 33, creatinine 2.18, INR 2.6, AST 8066, ALT 2707, and most recent lactic acid 4.2. Digoxin level II.9 after total 1 mg given yesterday. Cortisol greater than 123. She received 2 packed red blood cells, 2 platelets, and 2 fresh frozen plasma, as well as vitamin K yesterday. She has had little to no urine output. She received dialysis yesterday with removal of 3 L of fluid, plan is for dialysis again today. Nephrology and hematology on board, continue to monitor. She remains comfortable at this time and really her only complaint is of dry mouth and wanting to have something to drink. Her abdomen remains soft and nontender, she is passing a lot of flatus. was here yesterday and was updated by multiple consultants. Objective - Vital Signs Vital signs: Vital Signs Temp 97.8 F 12/30/20 04:00 Pulse 80 12/30/20 07:00 Resp 17 12/30/20 07:00 BP 106/49 12/30/20 07:00 Pulse Ox 94 L 12/30/20 07:00 Intake & Output 12/29/20 12/30/20 12/30/20 18:59 06:59 18:59 Intake Total 4405.05 2237.026 146 Output Total 413 3485 30 Balance 3992.05 -1247.974 116 Weight 70 kg Intake: IV 606 1302 146 0.9 NaCl 540 200 Calcium gluconate 100 100 D5.9 320 40 PRBC's 310 Potassium Chloride 200 Zosyn 100 pressure bags 66 72 6 Intake, IV Titration 286.05 191.026 Amount Furosemide 100 mg In 181 Sodium Chloride 0.9% 90 ml @ 20 MG/HR 20 mls/hr IV .Q5H KOBI Rx#:[id number] Phenylephrine 40 mg In 105.05 191.026 Sodium Chloride 0.9% 250 ml @ 0.5 MCG/KG/MIN 13. 468 mls/hr IV .[id number] KOBI Rx#:[id number] Blood Product 3513 744 Ffp 24 Cpd Unit 2623 [id number] Ffp 24 Cpd Unit 307 [id number] Platelet Pheresis Acd-A 0 434 Pasc 1 Unit [id number] Platelet Pheresis Acd-A 273 Pasc 2 Unit [id number] Rc As-1 Unit 310 [id number] Rc As-1 Unit 310 [id number] Output: Chest Tube Drainage 390 480 30 Right Pleural/Mediastinal 390 480 30 Urine 23 5 0 Hemodialysis 3000 Other: Voiding Method Indwelling Catheter Indwelling Catheter ABP, PAP, CO, CI - Last Documented Arterial Blood Pressure 96/46 Pulmonary Artery Pressure 12/5 Cardiac Output 4.2 Cardiac Index 2.6 - Exam CONSTITUTIONAL: Appears comfortable, cooperative RESPIRATORY: Lungs sounds diminished bilaterally with coarse breath sounds in the bases. Respirations even, nonlabored. Currently on BiPAP with oxygen saturation low to mid 90s, settings 50% FiO2, 12/5. Strong nonproductive cough. CARDIOVASCULAR: S1, S2 present. Regular rate and rhythm, normal sinus rhythm with first-degree AV block on telemetry, heart rate in the 80s. Sternum stable. Palpable peripheral pulses bilaterally. Generalized edema present. No calf pain or tenderness noted. Heart hugger in place. Antiembolism stockings, SCDs present. GASTROINTESTINAL: Abdomen soft, nontender, nondistended. Active bowel sounds present 4 quadrants. Positive flatus. GENITOURINARY: Acevedo present draining minimal concentrated urine. Output overnight 5 mL total INTEGUMENTARY: Skin is warm and dry. Anterior chest incision well approximated and covered with dry intact dressing. EVH site well approximated without redne ss or drainage. NEUROLOGIC: Cranial nerves II through XII intact MUSKULOSKELETAL: Able to move all extremities, strength equal bilaterally but weak PSYCHIATRIC: Alert and oriented to person place and time, appropriate affect, intact judgment and insight INVASIVE LINES AND TUBES: Mediastinal/right pleural chest tubes present and connected to wall suction, no air leaks present. Mediastinal/right tube with 350 mL serosanguineous drainage overnight, 850 mL in the last 24 hours. A/V epicardial pacemaker wires present, connected to generator, VVI mode with backup rate 50 bpm. Right internal jugular Cordis, right radial arterial line present. - Labs CBC & Chem 7: 12/30/20 03:57 12/30/20 03:57 Labs: Abnormal Lab Results - Last 24 Hours (Table) 12/28/20 12/29/20 12/29/20 Range/Units 04:25 04:40 09:07 WBC (3.8-10.6) k/uL RBC (3.80-5.40) m/uL Hgb 6.0 L* D (11.4-16.0) gm/dL Hct 17.9 L* (34.0-46.0) % RDW (11.5-15.5) % Plt Count (150-450) k/uL Neutrophils # (Manual) (1.3-7.7) k/uL Lymphocytes # (Manual) (1.0-4.8) k/uL Monocytes # (Manual) (0-1.0) k/uL Metamyelocytes # (Man) (0) k/uL Nucleated RBCs (0-0) /100 WBC PT (9.0-12.0) sec INR (<1.2) APTT (22.0-30.0) sec Fibrinogen (200-500) mg/dL D-Dimer (<0.60) mg/L FEU ABG HCO3 (21-25) mmol/L ABG Total CO2 (19-24) mmol/L ABG O2 Saturation (94-97) % ABG Lactic Acid (0.5-1.6) mmol/L Carbon Dioxide (22-30) mmol/L BUN (7-17) mg/dL Creatinine (0.52-1.04) mg/dL Glucose (74-99) mg/dL POC Glucose (mg/dL) 127 H (75-99) mg/dL Plasma Lactic Acid Iraj (0.7-2.0) mmol/L Calcium (8.4-10.2) mg/dL Ionized Calcium Beatrice (4.5-5.3) mg/dL Total Bilirubin (0.2-1.3) mg/dL AST (14-36) U/L ALT (4-34) U/L Total Protein (6.3-8.2) g/dL Digoxin ng/mL Hep Bs Antibody (Non-Reactive) Crossmatch See Detail 12/29/20 12/29/20 12/29/20 Range/Units 11:10 11:10 12:09 WBC (3.8-10.6) k/uL RBC (3.80-5.40) m/uL Hgb (11.4-16.0) gm/dL Hct (34.0-46.0) % RDW (11.5-15.5) % Plt Count (150-450) k/uL Neutrophils # (Manual) (1.3-7.7) k/uL Lymphocytes # (Manual) (1.0-4.8) k/uL Monocytes # (Manual) (0-1.0) k/uL Metamyelocytes # (Man) (0) k/uL Nucleated RBCs (0-0) /100 WBC PT (9.0-12.0) sec INR (<1.2) APTT (22.0-30.0) sec Fibrinogen (200-500) mg/dL D-Dimer (<0.60) mg/L FEU ABG HCO3 (21-25) mmol/L ABG Total CO2 (19-24) mmol/L ABG O2 Saturation (94-97) % ABG Lactic Acid (0.5-1.6) mmol/L Carbon Dioxide (22-30) mmol/L BUN (7-17) mg/dL Creatinine (0.52-1.04) mg/dL Glucose (74-99) mg/dL POC Glucose (mg/dL) 117 H (75-99) mg/dL Plasma Lactic Acid Iraj (0.7-2.0) mmol/L Calcium (8.4-10.2) mg/dL Ionized Calcium Beatrice 3.8 L (4.5-5.3) mg/dL Total Bilirubin (0.2-1.3) mg/dL AST (14-36) U/L ALT (4-34) U/L Total Protein (6.3-8.2) g/dL Digoxin ng/mL Hep Bs Antibody Reactive A (Non-Reactive) Crossmatch 12/29/20 12/29/20 12/29/20 Range/Units 15:15 15:15 16:45 WBC 14.1 H (3.8-10.6) k/uL RBC 2.42 L (3.80-5.40) m/uL Hgb 7.5 L D (11.4-16.0) gm/dL Hct 22.0 L (34.0-46.0) % RDW 16.1 H (11.5-15.5) % Plt Count 54 L D (150-450) k/uL Neutrophils # (Manual) 13.25 H (1.3-7.7) k/uL Lymphocytes # (Manual) 0.42 L (1.0-4.8) k/uL Monocytes # (Manual) (0-1.0) k/uL Metamyelocytes # (Man) (0) k/uL Nucleated RBCs 2 H (0-0) /100 WBC PT (9.0-12.0) sec INR (<1.2) APTT (22.0-30.0) sec Fibrinogen (200-500) mg/dL D-Dimer (<0.60) mg/L FEU ABG HCO3 (21-25) mmol/L ABG Total CO2 (19-24) mmol/L ABG O2 Saturation (94-97) % ABG Lactic Acid (0.5-1.6) mmol/L Carbon Dioxide (22-30) mmol/L BUN (7-17) mg/dL Creatinine (0.52-1.04) mg/dL Glucose (74-99) mg/dL POC Glucose (mg/dL) 100 H (75-99) mg/dL Plasma Lactic Acid Iraj 3.9 H* (0.7-2.0) mmol/L Calcium (8.4-10.2) mg/dL Ionized Calcium Beatrice (4.5-5.3) mg/dL Total Bilirubin (0.2-1.3) mg/dL AST (14-36) U/L ALT (4-34) U/L Total Protein (6.3-8.2) g/dL Digoxin ng/mL Hep Bs Antibody (Non-Reactive) Crossmatch 12/29/20 12/29/20 12/29/20 Range/Units 16:46 20:54 21:08 WBC 13.1 H (3.8-10.6) k/uL RBC 2.38 L (3.80-5.40) m/uL Hgb 7.4 L (11.4-16.0) gm/dL Hct 21.4 L (34.0-46.0) % RDW 16.0 H (11.5-15.5) % Plt Count 46 L (150-450) k/uL Neutrophils # (Manual) 11.14 H (1.3-7.7) k/uL Lymphocytes # (Manual) 0.79 L (1.0-4.8) k/uL Monocytes # (Manual) 1.18 H (0-1.0) k/uL Metamyelocytes # (Man) 0.13 H (0) k/uL Nucleated RBCs 7 H (0-0) /100 WBC PT (9.0-12.0) sec INR (<1.2) APTT (22.0-30.0) sec Fibrinogen (200-500) mg/dL D-Dimer (<0.60) mg/L FEU ABG HCO3 26 H (21-25) mmol/L ABG Total CO2 27 H 27 H (19-24) mmol/L ABG O2 Saturation 97.6 H (94-97) % ABG Lactic Acid (0.5-1.6) mmol/L Carbon Dioxide (22-30) mmol/L BUN (7-17) mg/dL Creatinine (0.52-1.04) mg/dL Glucose (74-99) mg/dL POC Glucose (mg/dL) (75-99) mg/dL Plasma Lactic Acid Iraj (0.7-2.0) mmol/L Calcium (8.4-10.2) mg/dL Ionized Calcium Beatrice (4.5-5.3) mg/dL Total Bilirubin (0.2-1.3) mg/dL AST (14-36) U/L ALT (4-34) U/L Total Protein (6.3-8.2) g/dL Digoxin ng/mL Hep Bs Antibody (Non-Reactive) Crossmatch 12/29/20 12/29/20 12/29/20 Range/Units 21:08 21:08 21:08 WBC (3.8-10.6) k/uL RBC (3.80-5.40) m/uL Hgb (11.4-16.0) gm/dL Hct (34.0-46.0) % RDW (11.5-15.5) % Plt Count (150-450) k/uL Neutrophils # (Manual) (1.3-7.7) k/uL Lymphocytes # (Manual) (1.0-4.8) k/uL Monocytes # (Manual) (0-1.0) k/uL Metamyelocytes # (Man) (0) k/uL Nucleated RBCs (0-0) /100 WBC PT 23.5 H (9.0-12.0) sec INR 2.4 H (<1.2) APTT 34.1 H (22.0-30.0) sec Fibrinogen (200-500) mg/dL D-Dimer 9.61 H (<0.60) mg/L FEU ABG HCO3 (21-25) mmol/L ABG Total CO2 (19-24) mmol/L ABG O2 Saturation (94-97) % ABG Lactic Acid 4.3 H* (0.5-1.6) mmol/L Carbon Dioxide (22-30) mmol/L BUN 27 H (7-17) mg/dL Creatinine 1.77 H (0.52-1.04) mg/dL Glucose (74-99) mg/dL POC Glucose (mg/dL) (75-99) mg/dL Plasma Lactic Acid Iraj (0.7-2.0) mmol/L Calcium 8.0 L (8.4-10.2) mg/dL Ionized Calcium Beatrice (4.5-5.3) mg/dL Total Bilirubin 4.1 H (0.2-1.3) mg/dL AST 9427 H (14-36) U/L ALT 2898 H (4-34) U/L Total Protein 5.6 L (6.3-8.2) g/dL Digoxin ng/mL Hep Bs Antibody (Non-Reactive) Crossmatch 12/30/20 12/30/20 12/30/20 Range/Units 03:00 03:50 03:57 WBC 13.3 H (3.8-10.6) k/uL RBC 2.84 L (3.80-5.40) m/uL Hgb 9.0 L D (11.4-16.0) gm/dL Hct 25.5 L (34.0-46.0) % RDW (11.5-15.5) % Plt Count 24 L (150-450) k/uL Neutrophils # (Manual) 10.91 H (1.3-7.7) k/uL Lymphocytes # (Manual) (1.0-4.8) k/uL Monocytes # (Manual) 1.33 H (0-1.0) k/uL Metamyelocytes # (Man) (0) k/uL Nucleated RBCs (0-0) /100 WBC PT (9.0-12.0) sec INR (<1.2) APTT (22.0-30.0) sec Fibrinogen (200-500) mg/dL D-Dimer (<0.60) mg/L FEU ABG HCO3 (21-25) mmol/L ABG Total CO2 (19-24) mmol/L ABG O2 Saturation (94-97) % ABG Lactic Acid 4.2 H* (0.5-1.6) mmol/L Carbon Dioxide (22-30) mmol/L BUN (7-17) mg/dL Creatinine (0.52-1.04) mg/dL Glucose (74-99) mg/dL POC Glucose (mg/dL) 110 H (75-99) mg/dL Plasma Lactic Acid Iraj (0.7-2.0) mmol/L Calcium (8.4-10.2) mg/dL Ionized Calcium Beatrice (4.5-5.3) mg/dL Total Bilirubin (0.2-1.3) mg/dL AST (14-36) U/L ALT (4-34) U/L Total Protein (6.3-8.2) g/dL Digoxin ng/mL Hep Bs Antibody (Non-Reactive) Crossmatch 12/30/20 12/30/20 12/30/20 Range/Units 03:57 03:57 03:57 WBC (3.8-10.6) k/uL RBC (3.80-5.40) m/uL Hgb (11.4-16.0) gm/dL Hct (34.0-46.0) % RDW (11.5-15.5) % Plt Count (150-450) k/uL Neutrophils # (Manual) (1.3-7.7) k/uL Lymphocytes # (Manual) (1.0-4.8) k/uL Monocytes # (Manual) (0-1.0) k/uL Metamyelocytes # (Man) (0) k/uL Nucleated RBCs (0-0) /100 WBC PT 25.1 H (9.0-12.0) sec INR 2.6 H (<1.2) APTT 30.2 H (22.0-30.0) sec Fibrinogen 178 L (200-500) mg/dL D-Dimer (<0.60) mg/L FEU ABG HCO3 (21-25) mmol/L ABG Total CO2 (19-24) mmol/L ABG O2 Saturation (94-97) % ABG Lactic Acid (0.5-1.6) mmol/L Carbon Dioxide 21 L (22-30) mmol/L BUN 33 H (7-17) mg/dL Creatinine 2.18 H (0.52-1.04) mg/dL Glucose 105 H (74-99) mg/dL POC Glucose (mg/dL) (75-99) mg/dL Plasma Lactic Acid Iraj (0.7-2.0) mmol/L Calcium 7.9 L (8.4-10.2) mg/dL Ionized Calcium Beatrice 4.0 L (4.5-5.3) mg/dL Total Bilirubin 5.0 H (0.2-1.3) mg/dL AST 8066 H (14-36) U/L ALT 2707 H (4-34) U/L Total Protein 5.5 L (6.3-8.2) g/dL Digoxin ng/mL Hep Bs Antibody (Non-Reactive) Crossmatch 12/30/20 12/30/20 12/30/20 Range/Units 03:57 05:58 08:09 WBC (3.8-10.6) k/uL RBC (3.80-5.40) m/uL Hgb (11.4-16.0) gm/dL Hct (34.0-46.0) % RDW (11.5-15.5) % Plt Count (150-450) k/uL Neutrophils # (Manual) (1.3-7.7) k/uL Lymphocytes # (Manual) (1.0-4.8) k/uL Monocytes # (Manual) (0-1.0) k/uL Metamyelocytes # (Man) (0) k/uL Nucleated RBCs (0-0) /100 WBC PT (9.0-12.0) sec INR (<1.2) APTT (22.0-30.0) sec Fibrinogen (200-500) mg/dL D-Dimer (<0.60) mg/L FEU ABG HCO3 (21-25) mmol/L ABG Total CO2 (19-24) mmol/L ABG O2 Saturation (94-97) % ABG Lactic Acid (0.5-1.6) mmol/L Carbon Dioxide (22-30) mmol/L BUN (7-17) mg/dL Creatinine (0.52-1.04) mg/dL Glucose (74-99) mg/dL POC Glucose (mg/dL) 125 H 138 H (75-99) mg/dL Plasma Lactic Acid Iraj (0.7-2.0) mmol/L Calcium (8.4-10.2) mg/dL Ionized Calcium Beatrice (4.5-5.3) mg/dL Total Bilirubin (0.2-1.3) mg/dL AST (14-36) U/L ALT (4-34) U/L Total Protein (6.3-8.2) g/dL Digoxin 2.9 H* ng/mL Hep Bs Antibody (Non-Reactive) Crossmatch Microbiology - Last 24 Hours (Table) 12/28/20 15:19 Blood Culture - Preliminary Blood No Growth after 24 hours Assessment and Plan Assessment: 1. Severe bicuspid aortic valve stenosis, status post aortic valve replacement with #21 mm Jackson Inspiris bioprosthetic aortic valve 2. Coronary artery disease, status post single vessel CABG 3. History of hypertension, currently hypotensive on Agustín-Synephrine 4. Hyperlipidemia, treated, cholesterol 111, LDL 38 5. Hypothyroid 6. 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 Right internal carotid artery stenosis 50-79% per Doppler 8. Previous tobacco dependence with moderate obstructive lung disease and preoperative FEV1 56% of predicted 9. Preoperative elevation of AST and ALT with transaminitis postoperatively, likely from hypotension 10. Degenerative arthritis with chronic back pain 11. Family history of colon cancer 12. Postoperative acute blood loss anemia, expected secondary to hemodilution and cardiopulmonary bypass pump 13. Hypotension requiring pressor use 14. Acute kidney injury secondary to hypoperfusion requiring initiation of dialysis 15. Shock liver secondary to hypoperfusion 16. Lactic acidosis secondary to hypoperfusion 17. Hypoxic respiratory failure requiring BiPAP 18. Thrombocytopenia 19. A. fib with RVR, known common occurrence after open heart surgery, status post exclusion of the left atrial appendage Plan: 1. Aspirin, statin, Plavix, beta kiki on hold, will restart when able. 2. Continue IV Agustín-Synephrine for blood pressure support, wean as tolerated 3. Wean from BiPAP as tolerated, management per community resource officer. Bronchodilators per community resource officer 4. Will transfuse 2 units platelets. 5. Increase activity when able. PT/OT/cardiac rehab consulted 6. Will monitor daily labs and chest x-rays. Electrolyte replacement per protocol, will give IV calcium. 7. GI/DVT prophylaxis 8. Pain control current per current medication regimen 9. Insulin management per primary care service. Patient is not diabetic, hemoglobin A1c 5.7% 10. Nephrology consulted, appreciate recommendations. Anticipate dialysis again today 11. Hematology consulted for thrombocytopenia, elevated liver function. HIT panel sent, await results 12. Will continue mediastinal, left pleural chest tubes for another 24 hours 13. Continue Acevedo for strict accurate intake and output. Daily weight 14. More recommendations to follow based on patient's progress Time with Patient: Greater than 30
[2020-12-30] MEDS: fentaNYL (PF) 50 MCG/ML 2 ML AMP IVP PRN ×3 (09:05→22:28)
--- NOTE | 2020-12-30 10:01 | P.PN ---
Subjective Progress Note Date: 12/30/20 HISTORY OF PRESENT ILLNESS This is a 65-year-old female patient of Dr. 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 Patient underwent echocardiogram that revealed an ejection fraction of 55-60% with LVH, mild to moderate MR, bicuspid severely calcified aortic valve with moderate aortic regurgitation, moderate tricuspid regurgitation. The patient underwent cardiac julián terizationTEE for further evaluation. The cath showed right coronary artery stenosis in the order of 85% without any significant coronary artery disease. The transthoracic echocardiogram showed severe aortic stenosis. Patient underwent aortic valve replacement and one-vessel CABG with reverse saphenous vein graft off the aorta to the right coronary artery. Patient was admitted into the intensive care unit and was successfully extubated. She is seen today in the intensive care unit. She is up in a recliner. [place] in place, mediastinal and right-sided chest tubes in place, Acevedo catheter in place. Patient denies having any chest pain. She states she is not feeling too bad today. She has a little nausea. No abdominal pain. She states she slept okay last night. She has been afebrile, heart rate 71, blood pressure 119/52, pulse ox 90% on 5 L nasal cannula. Blood work this morning reveals W BC 15.2, hemoglobin 8, platelet count 168. Electrolytes normal, BUN 19 and creatinine 0.78. Blood sugars running between 124 and 141. AST 167. Chest x-ray reveals small residual right apical pneumothorax may be present. Chest tubes pulled back slightly from comparison. [place] catheter is somewhat peripheral and the right main pulmonary artery region. Cardiomegaly. Small left pleural effusion. 12/28: Patient remains in the intensive care unit. Patient has become hypoten sive with low urine output, elevated lactic acid, anemia, liver enzyme elevation and generalized anasarca. Patient is been started on dopamine, Primacor and is status post albumin and is status post 1 unit packed RBCs this morning. Urine output is improving. She is on BiPAP. Patient complains of generalized not feeling well and shortness of breath. Repeat CXR reports slight increase in mild left hilar and left basilar edema and/or atelectasis. Small pleural effusion. WBC 18.7, hemoglobin initially 6.8 and repeat a 0.1. Platelet count 124. INR 2.8. Electrolytes normal. BUN 32 and creatinine 1.53. Blood sugars running in the 140-170s. Total bilirubin 1.9, AST 1140, ALT 662, alkaline phosphatase 30. Amylase and lipase normal. 12/29: She remains in the intensive care unit. She has not been intubated. Her overall condition continues to decline and she is scheduled for dialysis catheter placement to start hemodialysis. She has had virtually no urine output despite being on Lasix drip patient also went into atrial fibrillation and started on digoxin. She remains with right pleural and mediastinal chest tubes are in place. Additional new diagnoses include A. fib with RVR, ischemic bowel suspected, bicytopenia. Patient is awake. She is complaining of chest discomfort. She is not have increased edema. Her temperature has been low down to 96.5. Heart rate 114, blood pressure 122/54, pulse ox 90%. WBC 14.6, hemoglobin 6, platelet count 26. INR 3.3. Electrolytes normal. BUN 53 and creatinine 2.77. Calcium 7.8. Ionized calcium 3.8. Total bilirubin 3, AST 11,442, ALT 3572, alkaline phosphatase 41. She has been ordered for plasma, platelets and RBC transfusions. 12/30: Patient is currently on BiPAP. She had dialysis catheter placed by vascular surgeon yesterday and underwent her first hemodialysis with removal of 3 L. She has had no urine output overnight. She remains with chest tubes in place. Acevedo catheter is in place. Repeat blood work reveals W BC 13.3, hemoglobin 9, platelet count 24. She is scheduled for platelet transfusion today. INR 2.6. BUN 33 creatinine 2.18. Blood sugars are running between 110 and 138. Magnesium 2.2. Potassium 4.3. Total bilirubin 5.0, AST 8066, ALT 2707, alkaline phosphatase 74. Digoxin level II.9. Patient not currently on digoxin. surveillance system monitor sinus rhythm with a bundle branch block. She has been afebrile, heart rate in the 80s, blood pressure 138/52, pulse ox 93%. Cultures no growth at 24 hours. REVIEW OF SYSTEMS Constitutional: No fever, no chills, no night sweats. No weight change. Reports generalized weakness, reports fatigue reports lethargy. No daytime sleepiness. EENT: No headache. No change in vision, no loss of vision. No loss of Hearing, no dizziness. No nasal drainage or congestion. No epistaxis. No sore throat. Lungs: Reports shortness of breath, cough, no sputum production. No wheezing. Cardiovascular: Reports chest discomfort, reports lower extremity edema. Reports generalized edema. No palpitations. No paroxysmal nocturnal dyspnea. No orthopnea. No lightheadedness or dizziness. No syncopal episodes. Abdominal: No abdominal pain. Reports nausea, vomiting. No diarrhea. No constipation. No bloody or tarry stools.. No loss of appetite. Genitourinary: No dysuria, increased frequency, urgency. No urinary retention. Musculoskeletal: No myalgias. Reports muscle weakness, no gait dysfunction, no frequent falls. No back pain. No neck pain. Integumentary: No wounds, no lesions. No rash or pruritus. Neurologic: No aphasia. No facial droop. No change in mentation. No head injury. No headache. No paralysis. No paresthesia. Psychiatric: No depression. No anxiety. Endocrine: Reports abnormal blood sugars. PHYSICAL EXAMINATION Gen: This paradise 65-year-old female. She is resting in ICU bed, currently on BiPAP HEENT: Head is atraumatic, normocephalic. Pupils equal, round. Sclerae is anicteric. NECK: Supple. No JVD. No lymphadenopathy. No thyromegaly. Right-sided Cordis in place. LUNGS: Clear to auscultation. No wheezes or rhonchi. No intercostal retractions. Right pleural and mediastinal chest tubes in place. HEART: Regular rate and rhythm. No murmur. ABDOMEN: Soft. Bowel sounds are present. No masses. No tenderness. Acevedo catheter in place. EXTREMITIES: Mild generalized pedal edema. No calf tenderness. Dorsalis pedis palpable bilaterally. NEUROLOGICAL: Patient is awake, alert and oriented x3. Cranial nerves 2 through 12 are grossly intact. ASSESSMENT AND PLAN 1. Aortic valve replacement for bicuspid valve with moderate aortic regurgitation and single-vessel CABG with CVG to RCA. Patient is postop day # 4. She has been successfully extubated. Continue current management per cardiothoracic surgery. 2. Rule out cardiogenic shock. Status post dopamine and Primacor. Status post albumin IV. Patient started on IV Agustín-Synephrine to be discontinued today. 3. Transaminitis secondary to hypoperfusion and shock liver. Continue to monitor liver function tests and INR. 4. Acute blood loss anemia, expected following surgery. Repeat transfusion today. 5. Lactic acidosis secondary to hyperperfusion, improving. 6. A. fib with RVR, paroxysmal atrial fibrillation, converted to sinus rhythm. 7. Possible ischemic bowel. 8. Bicytopenia with thrombocytopenia and anemia. Patient is scheduled for transfusions. 9. Acute renal failure requiring dialysis. Patient started hemodialysis on December 29. 10. Acute hypoxic respiratory failure requiring BiPAP. 11. SIRS with multiorgan failure. Continue current management. 12. Hypertension. Patient is currently hypotensive. 13. Hyperlipidemia. 14. History of CVA 2. 15. Hypothyroidism. Continue levothyroxine 25 g daily. 16. Recurrent depression. Continue Zoloft 25 mg at bedtime. 17. Degenerative disc disease. 18. GI prophylaxis. Protonix 40 mg IV push twice daily. 19. DVT prophylaxis. Off heparin due to thrombocytopenia DISCHARGE PLAN TBD. Impression and plan of care have been directed as dictated by the signing physician. Donna Gutierrez nurse practitioner acting as scribe for signing physici an. Objective - Vital Signs Vital signs: Vital Signs Temp 97.8 F 12/30/20 09:24 Pulse 87 12/30/20 09:24 Resp 30 H 12/30/20 09:24 BP 138/52 12/30/20 09:24 Pulse Ox 93 L 12/30/20 09:24 Intake & Output 12/29/20 12/30/20 12/30/20 18:59 06:59 18:59 Intake Total 4405.05 2237.026 803.263 Output Total 413 3485 30 Balance 3992.05 -1247.974 773.263 Weight 70 kg Intake: IV 606 1302 146 0.9 NaCl 540 200 Calcium gluconate 100 100 D5.9 320 40 PRBC's 310 Potassium Chloride 200 Zosyn 100 pressure bags 66 72 6 Intake, IV Titration 286.05 191.026 59.263 Amount Furosemide 100 mg In 181 Sodium Chloride 0.9% 90 ml @ 20 MG/HR 20 mls/hr IV .Q5H [facility] Rx#:[id number] Phenylephrine 40 mg In 105.05 191.026 59.263 Sodium Chloride 0.9% 250 ml @ 0.5 MCG/KG/MIN 13. 468 mls/hr IV .[id number] [facility] Rx#:[id number] Blood Product 3513 744 598 Ffp 24 Cpd Unit 2623 [id number] Ffp 24 Cpd Unit 307 [id number] Platelet Pheresis Acd-A 0 434 Pasc 1 Unit [id number] Platelet Pheresis Acd-A 273 Pasc 2 Unit [id number] Platelet Pheresis Pas 348 Psoralen Unit [id number] Platelet Pheresis Pas-C 250 Unit [id number] Rc As-1 Unit 310 [id number] Rc As-1 Unit 310 [id number] Output: Chest Tube Drainage 390 480 30 Right Pleural/Mediastinal 390 480 30 Urine 23 5 0 Hemodialysis 3000 Other: Voiding Method Indwelling Catheter Indwelling Catheter ABP, PAP, CO, CI - Last Documented Arterial Blood Pressure 96/46 Pulmonary Artery Pressure 12/5 Cardiac Output 4.2 Cardiac Index 2.6 - Labs CBC & Chem 7: 12/30/20 03:57 12/30/20 03:57 Labs: Abnormal Lab Results - Last 24 Hours (Table) 12/28/20 12/29/20 12/29/20 Range/Units 04:25 11:10 11:10 WBC (3.8-10.6) k/uL RBC (3.80-5.40) m/uL Hgb (11.4-16.0) gm/dL Hct (34.0-46.0) % RDW (11.5-15.5) % Plt Count (150-450) k/uL Neutrophils # (Manual) (1.3-7.7) k/uL Lymphocytes # (Manual) (1.0-4.8) k/uL Monocytes # (Manual) (0-1.0) k/uL Metamyelocytes # (Man) (0) k/uL Nucleated RBCs (0-0) /100 WBC PT (9.0-12.0) sec INR (<1.2) APTT (22.0-30.0) sec Fibrinogen (200-500) mg/dL D-Dimer (<0.60) mg/L FEU ABG HCO3 (21-25) mmol/L ABG Total CO2 (19-24) mmol/L ABG O2 Saturation (94-97) % ABG Lactic Acid (0.5-1.6) mmol/L Carbon Dioxide (22-30) mmol/L BUN (7-17) mg/dL Creatinine (0.52-1.04) mg/dL Glucose (74-99) mg/dL POC Glucose (mg/dL) (75-99) mg/dL Plasma Lactic Acid Iraj (0.7-2.0) mmol/L Calcium (8.4-10.2) mg/dL Ionized Calcium Beatrice 3.8 L (4.5-5.3) mg/dL Total Bilirubin (0.2-1.3) mg/dL AST (14-36) U/L ALT (4-34) U/L Total Protein (6.3-8.2) g/dL Digoxin ng/mL Hep Bs Antibody Reactive A (Non-Reactive) Crossmatch See Detail 12/29/20 12/29/20 12/29/20 Range/Units 12:09 15:15 15:15 WBC 14.1 H (3.8-10.6) k/uL RBC 2.42 L (3.80-5.40) m/uL Hgb 7.5 L D (11.4-16.0) gm/dL Hct 22.0 L (34.0-46.0) % RDW 16.1 H (11.5-15.5) % Plt Count 54 L D (150-450) k/uL Neutrophils # (Manual) 13.25 H (1.3-7.7) k/uL Lymphocytes # (Manual) 0.42 L (1.0-4.8) k/uL Monocytes # (Manual) (0-1.0) k/uL Metamyelocytes # (Man) (0) k/uL Nucleated RBCs 2 H (0-0) /100 WBC PT (9.0-12.0) sec INR (<1.2) APTT (22.0-30.0) sec Fibrinogen (200-500) mg/dL D-Dimer (<0.60) mg/L FEU ABG HCO3 (21-25) mmol/L ABG Total CO2 (19-24) mmol/L ABG O2 Saturation (94-97) % ABG Lactic Acid (0.5-1.6) mmol/L Carbon Dioxide (22-30) mmol/L BUN (7-17) mg/dL Creatinine (0.52-1.04) mg/dL Glucose (74-99) mg/dL POC Glucose (mg/dL) 117 H (75-99) mg/dL Plasma Lactic Acid Iraj 3.9 H* (0.7-2.0) mmol/L Calcium (8.4-10.2) mg/dL Ionized Calcium Beatrice (4.5-5.3) mg/dL Total Bilirubin (0.2-1.3) mg/dL AST (14-36) U/L ALT (4-34) U/L Total Protein (6.3-8.2) g/dL Digoxin ng/mL Hep Bs Antibody (Non-Reactive) Crossmatch 12/29/20 12/29/20 12/29/20 Range/Units 16:45 16:46 20:54 WBC (3.8-10.6) k/uL RBC (3.80-5.40) m/uL Hgb (11.4-16.0) gm/dL Hct (34.0-46.0) % RDW (11.5-15.5) % Plt Count (150-450) k/uL Neutrophils # (Manual) (1.3-7.7) k/uL Lymphocytes # (Manual) (1.0-4.8) k/uL Monocytes # (Manual) (0-1.0) k/uL Metamyelocytes # (Man) (0) k/uL Nucleated RBCs (0-0) /100 WBC PT (9.0-12.0) sec INR (<1.2) APTT (22.0-30.0) sec Fibrinogen (200-500) mg/dL D-Dimer (<0.60) mg/L FEU ABG HCO3 26 H (21-25) mmol/L ABG Total CO2 27 H 27 H (19-24) mmol/L ABG O2 Saturation 97.6 H (94-97) % ABG Lactic Acid (0.5-1.6) mmol/L Carbon Dioxide (22-30) mmol/L BUN (7-17) mg/dL Creatinine (0.52-1.04) mg/dL Glucose (74-99) mg/dL POC Glucose (mg/dL) 100 H (75-99) mg/dL Plasma Lactic Acid Iraj (0.7-2.0) mmol/L Calcium (8.4-10.2) mg/dL Ionized Calcium Beatrice (4.5-5.3) mg/dL Total Bilirubin (0.2-1.3) mg/dL AST (14-36) U/L ALT (4-34) U/L Total Protein (6.3-8.2) g/dL Digoxin ng/mL Hep Bs Antibody (Non-Reactive) Crossmatch 12/29/20 12/29/20 12/29/20 Range/Units 21:08 21:08 21:08 WBC 13.1 H (3.8-10.6) k/uL RBC 2.38 L (3.80-5.40) m/uL Hgb 7.4 L (11.4-16.0) gm/dL Hct 21.4 L (34.0-46.0) % RDW 16.0 H (11.5-15.5) % Plt Count 46 L (150-450) k/uL Neutrophils # (Manual) 11.14 H (1.3-7.7) k/uL Lymphocytes # (Manual) 0.79 L (1.0-4.8) k/uL Monocytes # (Manual) 1.18 H (0-1.0) k/uL Metamyelocytes # (Man) 0.13 H (0) k/uL Nucleated RBCs 7 H (0-0) /100 WBC PT 23.5 H (9.0-12.0) sec INR 2.4 H (<1.2) APTT 34.1 H (22.0-30.0) sec Fibrinogen (200-500) mg/dL D-Dimer 9.61 H (<0.60) mg/L FEU ABG HCO3 (21-25) mmol/L ABG Total CO2 (19-24) mmol/L ABG O2 Saturation (94-97) % ABG Lactic Acid (0.5-1.6) mmol/L Carbon Dioxide (22-30) mmol/L BUN 27 H (7-17) mg/dL Creatinine 1.77 H (0.52-1.04) mg/dL Glucose (74-99) mg/dL POC Glucose (mg/dL) (75-99) mg/dL Plasma Lactic Acid Iraj (0.7-2.0) mmol/L Calcium 8.0 L (8.4-10.2) mg/dL Ionized Calcium Beatrice (4.5-5.3) mg/dL Total Bilirubin 4.1 H (0.2-1.3) mg/dL AST 9427 H (14-36) U/L ALT 2898 H (4-34) U/L Total Protein 5.6 L (6.3-8.2) g/dL Digoxin ng/mL Hep Bs Antibody (Non-Reactive) Crossmatch 12/29/20 12/30/20 12/30/20 Range/Units 21:08 03:00 03:50 WBC (3.8-10.6) k/uL RBC (3.80-5.40) m/uL Hgb (11.4-16.0) gm/dL Hct (34.0-46.0) % RDW (11.5-15.5) % Plt Count (150-450) k/uL Neutrophils # (Manual) (1.3-7.7) k/uL Lymphocytes # (Manual) (1.0-4.8) k/uL Monocytes # (Manual) (0-1.0) k/uL Metamyelocytes # (Man) (0) k/uL Nucleated RBCs (0-0) /100 WBC PT (9.0-12.0) sec INR (<1.2) APTT (22.0-30.0) sec Fibrinogen (200-500) mg/dL D-Dimer (<0.60) mg/L FEU ABG HCO3 (21-25) mmol/L ABG Total CO2 (19-24) mmol/L ABG O2 Saturation (94-97) % ABG Lactic Acid 4.3 H* 4.2 H* (0.5-1.6) mmol/L Carbon Dioxide (22-30) mmol/L BUN (7-17) mg/dL Creatinine (0.52-1.04) mg/dL Glucose (74-99) mg/dL POC Glucose (mg/dL) 110 H (75-99) mg/dL Plasma Lactic Acid Iraj (0.7-2.0) mmol/L Calcium (8.4-10.2) mg/dL Ionized Calcium Beatrice (4.5-5.3) mg/dL Total Bilirubin (0.2-1.3) mg/dL AST (14-36) U/L ALT (4-34) U/L Total Protein (6.3-8.2) g/dL Digoxin ng/mL Hep Bs Antibody (Non-Reactive) Crossmatch 12/30/20 12/30/20 12/30/20 Range/Units 03:57 03:57 03:57 WBC 13.3 H (3.8-10.6) k/uL RBC 2.84 L (3.80-5.40) m/uL Hgb 9.0 L D (11.4-16.0) gm/dL Hct 25.5 L (34.0-46.0) % RDW (11.5-15.5) % Plt Count 24 L (150-450) k/uL Neutrophils # (Manual) 10.91 H (1.3-7.7) k/uL Lymphocytes # (Manual) (1.0-4.8) k/uL Monocytes # (Manual) 1.33 H (0-1.0) k/uL Metamyelocytes # (Man) (0) k/uL Nucleated RBCs (0-0) /100 WBC PT 25.1 H (9.0-12.0) sec INR 2.6 H (<1.2) APTT 30.2 H (22.0-30.0) sec Fibrinogen (200-500) mg/dL D-Dimer (<0.60) mg/L FEU ABG HCO3 (21-25) mmol/L ABG Total CO2 (19-24) mmol/L ABG O2 Saturation (94-97) % ABG Lactic Acid (0.5-1.6) mmol/L Carbon Dioxide 21 L (22-30) mmol/L BUN 33 H (7-17) mg/dL Creatinine 2.18 H (0.52-1.04) mg/dL Glucose 105 H (74-99) mg/dL POC Glucose (mg/dL) (75-99) mg/dL Plasma Lactic Acid Iraj (0.7-2.0) mmol/L Calcium 7.9 L (8.4-10.2) mg/dL Ionized Calcium Beatrice 4.0 L (4.5-5.3) mg/dL Total Bilirubin 5.0 H (0.2-1.3) mg/dL AST 8066 H (14-36) U/L ALT 2707 H (4-34) U/L Total Protein 5.5 L (6.3-8.2) g/dL Digoxin ng/mL Hep Bs Antibody (Non-Reactive) Crossmatch 12/30/20 12/30/20 12/30/20 Range/Units 03:57 03:57 05:58 WBC (3.8-10.6) k/uL RBC (3.80-5.40) m/uL Hgb (11.4-16.0) gm/dL Hct (34.0-46.0) % RDW (11.5-15.5) % Plt Count (150-450) k/uL Neutrophils # (Manual) (1.3-7.7) k/uL Lymphocytes # (Manual) (1.0-4.8) k/uL Monocytes # (Manual) (0-1.0) k/uL Metamyelocytes # (Man) (0) k/uL Nucleated RBCs (0-0) /100 WBC PT (9.0-12.0) sec INR (<1.2) APTT (22.0-30.0) sec Fibrinogen 178 L (200-500) mg/dL D-Dimer (<0.60) mg/L FEU ABG HCO3 (21-25) mmol/L ABG Total CO2 (19-24) mmol/L ABG O2 Saturation (94-97) % ABG Lactic Acid (0.5-1.6) mmol/L Carbon Dioxide (22-30) mmol/L BUN (7-17) mg/dL Creatinine (0.52-1.04) mg/dL Glucose (74-99) mg/dL POC Glucose (mg/dL) 125 H (75-99) mg/dL Plasma Lactic Acid Iraj (0.7-2.0) mmol/L Calcium (8.4-10.2) mg/dL Ionized Calcium Beatrice (4.5-5.3) mg/dL Total Bilirubin (0.2-1.3) mg/dL AST (14-36) U/L ALT (4-34) U/L Total Protein (6.3-8.2) g/dL Digoxin 2.9 H* ng/mL Hep Bs Antibody (Non-Reactive) Crossmatch 12/30/20 Range/Units 08:09 WBC (3.8-10.6) k/uL RBC (3.80-5.40) m/uL Hgb (11.4-16.0) gm/dL Hct (34.0-46.0) % RDW (11.5-15.5) % Plt Count (150-450) k/uL Neutrophils # (Manual) (1.3-7.7) k/uL Lymphocytes # (Manual) (1.0-4.8) k/uL Monocytes # (Manual) (0-1.0) k/uL Metamyelocytes # (Man) (0) k/uL Nucleated RBCs (0-0) /100 WBC PT (9.0-12.0) sec INR (<1.2) APTT (22.0-30.0) sec Fibrinogen (200-500) mg/dL D-Dimer (<0.60) mg/L FEU ABG HCO3 (21-25) mmol/L ABG Total CO2 (19-24) mmol/L ABG O2 Saturation (94-97) % ABG Lactic Acid (0.5-1.6) mmol/L Carbon Dioxide (22-30) mmol/L BUN (7-17) mg/dL Creatinine (0.52-1.04) mg/dL Glucose (74-99) mg/dL POC Glucose (mg/dL) 138 H (75-99) mg/dL Plasma Lactic Acid Iraj (0.7-2.0) mmol/L Calcium (8.4-10.2) mg/dL Ionized Calcium Beatrice (4.5-5.3) mg/dL Total Bilirubin (0.2-1.3) mg/dL AST (14-36) U/L ALT (4-34) U/L Total Protein (6.3-8.2) g/dL Digoxin ng/mL Hep Bs Antibody (Non-Reactive) Crossmatch Microbiology - Last 24 Hours (Table) 12/28/20 15:19 Blood Culture - Preliminary Blood No Growth after 24 hours
--- NOTE | 2020-12-30 10:03 | P.PN ---
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 Postop she went into shock severe lactic acidosis and became anuric. She also has shock liver with bilirubin at 5. She was dialyzed yesterday for 3 L over 5 hours. Tolerated fairly well. Currently she is on BiPAP, and on small doses of Agustín-Synephrine. Blood pressure in the 120s. She is awake alert. Past history significant for hypothyroidism and coronary artery disease hypertension. She has had a coronary stent in the past Objective - Vital Signs Vital signs: Vital Signs Temp 97.8 F 12/30/20 09:24 Pulse 87 12/30/20 09:24 Resp 30 H 12/30/20 09:24 BP 138/52 12/30/20 09:24 Pulse Ox 93 L 12/30/20 09:24 Intake & Output 12/29/20 12/30/20 12/30/20 18:59 06:59 18:59 Intake Total 4405.05 2237.026 803.263 Output Total 413 3485 30 Balance 3992.05 -1247.974 773.263 Weight 70 kg Intake: IV 606 1302 146 0.9 NaCl 540 200 Calcium gluconate 100 100 D5.9 320 40 PRBC's 310 Potassium Chloride 200 Zosyn 100 pressure bags 66 72 6 Intake, IV Titration 286.05 191.026 59.263 Amount Furosemide 100 mg In 181 Sodium Chloride 0.9% 90 ml @ 20 MG/HR 20 mls/hr IV .Q5H [facility] Rx#:[id number] Phenylephrine 40 mg In 105.05 191.026 59.263 Sodium Chloride 0.9% 250 ml @ 0.5 MCG/KG/MIN 13. 468 mls/hr IV .[id number] KOBI Rx#:[id number] Blood Product 1993 744 598 Ffp 24 Cpd Unit 2623 [id number] Ffp 24 Cpd Unit 307 [id number] Platelet Pheresis Acd-A 0 434 Pasc 1 Unit [id number] Platelet Pheresis Acd-A 273 Pasc 2 Unit [id number] Platelet Pheresis Pas 348 Psoralen Unit [id number] Platelet Pheresis Pas-C 250 Unit [id number] Rc As-1 Unit 310 [id number] Rc As-1 Unit 310 [id number] Output: Chest Tube Drainage 390 480 30 Right Pleural/Mediastinal 390 480 30 Urine 23 5 0 Hemodialysis 3000 Other: Voiding Method Indwelling Catheter Indwelling Catheter ABP, PAP, CO, CI - Last Documented Arterial Blood Pressure 96/46 Pulmonary Artery Pressure 12/5 Cardiac Output 4.2 Cardiac Index 2.6 Early on exam she is awake alert but weak. She is on BiPAP on 50% FiO2 on a small dose of new Center from HEENT exam no JVP neck is supple no facial asymmetry Lungs are significant for an occasional coarse crackle at bases. Good air entry bilaterally Heart sounds unremarkable. No murmur rub gallop Abdomen soft nontender Extremity exam was no edema, she has bilateral DARBY hoses Neurologically awake alert oriented, profoundly weak though - Labs CBC & Chem 7: 12/30/20 03:57 12/30/20 03:57 Labs: Abnormal Lab Results - Last 24 Hours (Table) 12/28/20 12/29/20 12/29/20 Range/Units 04:25 11:10 11:10 WBC (3.8-10.6) k/uL RBC (3.80-5.40) m/uL Hgb (11.4-16.0) gm/dL Hct (34.0-46.0) % RDW (11.5-15.5) % Plt Count (150-450) k/uL Neutrophils # (Manual) (1.3-7.7) k/uL Lymphocytes # (Manual) (1.0-4.8) k/uL Monocytes # (Manual) (0-1.0) k/uL Metamyelocytes # (Man) (0) k/uL Nucleated RBCs (0-0) /100 WBC PT (9.0-12.0) sec INR (<1.2) APTT (22.0-30.0) sec Fibrinogen (200-500) mg/dL D-Dimer (<0.60) mg/L FEU ABG HCO3 (21-25) mmol/L ABG Total CO2 (19-24) mmol/L ABG O2 Saturation (94-97) % ABG Lactic Acid (0.5-1.6) mmol/L Carbon Dioxide (22-30) mmol/L BUN (7-17) mg/dL Creatinine (0.52-1.04) mg/dL Glucose (74-99) mg/dL POC Glucose (mg/dL) (75-99) mg/dL Plasma Lactic Acid Iraj (0.7-2.0) mmol/L Calcium (8.4-10.2) mg/dL Ionized Calcium Beatrice 3.8 L (4.5-5.3) mg/dL Total Bilirubin (0.2-1.3) mg/dL AST (14-36) U/L ALT (4-34) U/L Total Protein (6.3-8.2) g/dL Digoxin ng/mL Hep Bs Antibody Reactive A (Non-Reactive) Crossmatch See Detail 12/29/20 12/29/20 12/29/20 Range/Units 12:09 15:15 15:15 WBC 14.1 H (3.8-10.6) k/uL RBC 2.42 L (3.80-5.40) m/uL Hgb 7.5 L D (11.4-16.0) gm/dL Hct 22.0 L (34.0-46.0) % RDW 16.1 H (11.5-15.5) % Plt Count 54 L D (150-450) k/uL Neutrophils # (Manual) 13.25 H (1.3-7.7) k/uL Lymphocytes # (Manual) 0.42 L (1.0-4.8) k/uL Monocytes # (Manual) (0-1.0) k/uL Metamyelocytes # (Man) (0) k/uL Nucleated RBCs 2 H (0-0) /100 WBC PT (9.0-12.0) sec INR (<1.2) APTT (22.0-30.0) sec Fibrinogen (200-500) mg/dL D-Dimer (<0.60) mg/L FEU ABG HCO3 (21-25) mmol/L ABG Total CO2 (19-24) mmol/L ABG O2 Saturation (94-97) % ABG Lactic Acid (0.5-1.6) mmol/L Carbon Dioxide (22-30) mmol/L BUN (7-17) mg/dL Creatinine (0.52-1.04) mg/dL Glucose (74-99) mg/dL POC Glucose (mg/dL) 117 H (75-99) mg/dL Plasma Lactic Acid Iraj 3.9 H* (0.7-2.0) mmol/L Calcium (8.4-10.2) mg/dL Ionized Calcium Beatrice (4.5-5.3) mg/dL Total Bilirubin (0.2-1.3) mg/dL AST (14-36) U/L ALT (4-34) U/L Total Protein (6.3-8.2) g/dL Digoxin ng/mL Hep Bs Antibody (Non-Reactive) Crossmatch 12/29/20 12/29/20 12/29/20 Range/Units 16:45 16:46 20:54 WBC (3.8-10.6) k/uL RBC (3.80-5.40) m/uL Hgb (11.4-16.0) gm/dL Hct (34.0-46.0) % RDW (11.5-15.5) % Plt Count (150-450) k/uL Neutrophils # (Manual) (1.3-7.7) k/uL Lymphocytes # (Manual) (1.0-4.8) k/uL Monocytes # (Manual) (0-1.0) k/uL Metamyelocytes # (Man) (0) k/uL Nucleated RBCs (0-0) /100 WBC PT (9.0-12.0) sec INR (<1.2) APTT (22.0-30.0) sec Fibrinogen (200-500) mg/dL D-Dimer (<0.60) mg/L FEU ABG HCO3 26 H (21-25) mmol/L ABG Total CO2 27 H 27 H (19-24) mmol/L ABG O2 Saturation 97.6 H (94-97) % ABG Lactic Acid (0.5-1.6) mmol/L Carbon Dioxide (22-30) mmol/L BUN (7-17) mg/dL Creatinine (0.52-1.04) mg/dL Glucose (74-99) mg/dL POC Glucose (mg/dL) 100 H (75-99) mg/dL Plasma Lactic Acid Iraj (0.7-2.0) mmol/L Calcium (8.4-10.2) mg/dL Ionized Calcium Beatrice (4.5-5.3) mg/dL Total Bilirubin (0.2-1.3) mg/dL AST (14-36) U/L ALT (4-34) U/L Total Protein (6.3-8.2) g/dL Digoxin ng/mL Hep Bs Antibody (Non-Reactive) Crossmatch 12/29/20 12/29/20 12/29/20 Range/Units 21:08 21:08 21:08 WBC 13.1 H (3.8-10.6) k/uL RBC 2.38 L (3.80-5.40) m/uL Hgb 7.4 L (11.4-16.0) gm/dL Hct 21.4 L (34.0-46.0) % RDW 16.0 H (11.5-15.5) % Plt Count 46 L (150-450) k/uL Neutrophils # (Manual) 11.14 H (1.3-7.7) k/uL Lymphocytes # (Manual) 0.79 L (1.0-4.8) k/uL Monocytes # (Manual) 1.18 H (0-1.0) k/uL Metamyelocytes # (Man) 0.13 H (0) k/uL Nucleated RBCs 7 H (0-0) /100 WBC PT 23.5 H (9.0-12.0) sec INR 2.4 H (<1.2) APTT 34.1 H (22.0-30.0) sec Fibrinogen (200-500) mg/dL D-Dimer 9.61 H (<0.60) mg/L FEU ABG HCO3 (21-25) mmol/L ABG Total CO2 (19-24) mmol/L ABG O2 Saturation (94-97) % ABG Lactic Acid (0.5-1.6) mmol/L Carbon Dioxide (22-30) mmol/L BUN 27 H (7-17) mg/dL Creatinine 1.77 H (0.52-1.04) mg/dL Glucose (74-99) mg/dL POC Glucose (mg/dL) (75-99) mg/dL Plasma Lactic Acid Iraj (0.7-2.0) mmol/L Calcium 8.0 L (8.4-10.2) mg/dL Ionized Calcium Beatrice (4.5-5.3) mg/dL Total Bilirubin 4.1 H (0.2-1.3) mg/dL AST 9427 H (14-36) U/L ALT 2898 H (4-34) U/L Total Protein 5.6 L (6.3-8.2) g/dL Digoxin ng/mL Hep Bs Antibody (Non-Reactive) Crossmatch 12/29/20 12/30/20 12/30/20 Range/Units 21:08 03:00 03:50 WBC (3.8-10.6) k/uL RBC (3.80-5.40) m/uL Hgb (11.4-16.0) gm/dL Hct (34.0-46.0) % RDW (11.5-15.5) % Plt Count (150-450) k/uL Neutrophils # (Manual) (1.3-7.7) k/uL Lymphocytes # (Manual) (1.0-4.8) k/uL Monocytes # (Manual) (0-1.0) k/uL Metamyelocytes # (Man) (0) k/uL Nucleated RBCs (0-0) /100 WBC PT (9.0-12.0) sec INR (<1.2) APTT (22.0-30.0) sec Fibrinogen (200-500) mg/dL D-Dimer (<0.60) mg/L FEU ABG HCO3 (21-25) mmol/L ABG Total CO2 (19-24) mmol/L ABG O2 Saturation (94-97) % ABG Lactic Acid 4.3 H* 4.2 H* (0.5-1.6) mmol/L Carbon Dioxide (22-30) mmol/L BUN (7-17) mg/dL Creatinine (0.52-1.04) mg/dL Glucose (74-99) mg/dL POC Glucose (mg/dL) 110 H (75-99) mg/dL Plasma Lactic Acid Iraj (0.7-2.0) mmol/L Calcium (8.4-10.2) mg/dL Ionized Calcium Baetrice (4.5-5.3) mg/dL Total Bilirubin (0.2-1.3) mg/dL AST (14-36) U/L ALT (4-34) U/L Total Protein (6.3-8.2) g/dL Digoxin ng/mL Hep Bs Antibody (Non-Reactive) Crossmatch 12/30/20 12/30/20 12/30/20 Range/Units 03:57 03:57 03:57 WBC 13.3 H (3.8-10.6) k/uL RBC 2.84 L (3.80-5.40) m/uL Hgb 9.0 L D (11.4-16.0) gm/dL Hct 25.5 L (34.0-46.0) % RDW (11.5-15.5) % Plt Count 24 L (150-450) k/uL Neutrophils # (Manual) 10.91 H (1.3-7.7) k/uL Lymphocytes # (Manual) (1.0-4.8) k/uL Monocytes # (Manual) 1.33 H (0-1.0) k/uL Metamyelocytes # (Man) (0) k/uL Nucleated RBCs (0-0) /100 WBC PT 25.1 H (9.0-12.0) sec INR 2.6 H (<1.2) APTT 30.2 H (22.0-30.0) sec Fibrinogen (200-500) mg/dL D-Dimer (<0.60) mg/L FEU ABG HCO3 (21-25) mmol/L ABG Total CO2 (19-24) mmol/L ABG O2 Saturation (94-97) % ABG Lactic Acid (0.5-1.6) mmol/L Carbon Dioxide 21 L (22-30) mmol/L BUN 33 H (7-17) mg/dL Creatinine 2.18 H (0.52-1.04) mg/dL Glucose 105 H (74-99) mg/dL POC Glucose (mg/dL) (75-99) mg/dL Plasma Lactic Acid Iraj (0.7-2.0) mmol/L Calcium 7.9 L (8.4-10.2) mg/dL Ionized Calcium Beatrice 4.0 L (4.5-5.3) mg/dL Total Bilirubin 5.0 H (0.2-1.3) mg/dL AST 8066 H (14-36) U/L ALT 2707 H (4-34) U/L Total Protein 5.5 L (6.3-8.2) g/dL Digoxin ng/mL Hep Bs Antibody (Non-Reactive) Crossmatch 12/30/20 12/30/20 12/30/20 Range/Units 03:57 03:57 05:58 WBC (3.8-10.6) k/uL RBC (3.80-5.40) m/uL Hgb (11.4-16.0) gm/dL Hct (34.0-46.0) % RDW (11.5-15.5) % Plt Count (150-450) k/uL Neutrophils # (Manual) (1.3-7.7) k/uL Lymphocytes # (Manual) (1.0-4.8) k/uL Monocytes # (Manual) (0-1.0) k/uL Metamyelocytes # (Man) (0) k/uL Nucleated RBCs (0-0) /100 WBC PT (9.0-12.0) sec INR (<1.2) APTT (22.0-30.0) sec Fibrinogen 178 L (200-500) mg/dL D-Dimer (<0.60) mg/L FEU ABG HCO3 (21-25) mmol/L ABG Total CO2 (19-24) mmol/L ABG O2 Saturation (94-97) % ABG Lactic Acid (0.5-1.6) mmol/L Carbon Dioxide (22-30) mmol/L BUN (7-17) mg/dL Creatinine (0.52-1.04) mg/dL Glucose (74-99) mg/dL POC Glucose (mg/dL) 125 H (75-99) mg/dL Plasma Lactic Acid Iraj (0.7-2.0) mmol/L Calcium (8.4-10.2) mg/dL Ionized Calcium Beatrice (4.5-5.3) mg/dL Total Bilirubin (0.2-1.3) mg/dL AST (14-36) U/L ALT (4-34) U/L Total Protein (6.3-8.2) g/dL Digoxin 2.9 H* ng/mL Hep Bs Antibody (Non-Reactive) Crossmatch 12/30/20 Range/Units 08:09 WBC (3.8-10.6) k/uL RBC (3.80-5.40) m/uL Hgb (11.4-16.0) gm/dL Hct (34.0-46.0) % RDW (11.5-15.5) % Plt Count (150-450) k/uL Neutrophils # (Manual) (1.3-7.7) k/uL Lymphocytes # (Manual) (1.0-4.8) k/uL Monocytes # (Manual) (0-1.0) k/uL Metamyelocytes # (Man) (0) k/uL Nucleated RBCs (0-0) /100 WBC PT (9.0-12.0) sec INR (<1.2) APTT (22.0-30.0) sec Fibrinogen (200-500) mg/dL D-Dimer (<0.60) mg/L FEU ABG HCO3 (21-25) mmol/L ABG Total CO2 (19-24) mmol/L ABG O2 Saturation (94-97) % ABG Lactic Acid (0.5-1.6) mmol/L Carbon Dioxide (22-30) mmol/L BUN (7-17) mg/dL Creatinine (0.52-1.04) mg/dL Glucose (74-99) mg/dL POC Glucose (mg/dL) 138 H (75-99) mg/dL Plasma Lactic Acid Iraj (0.7-2.0) mmol/L Calcium (8.4-10.2) mg/dL Ionized Calcium Beatrice (4.5-5.3) mg/dL Total Bilirubin (0.2-1.3) mg/dL AST (14-36) U/L ALT (4-34) U/L Total Protein (6.3-8.2) g/dL Digoxin ng/mL Hep Bs Antibody (Non-Reactive) Crossmatch Microbiology - Last 24 Hours (Table) 12/28/20 15:19 Blood Culture - Preliminary Blood No Growth after 24 hours Assessment and Plan Assessment: Present 1. Severe ATN from shock, anuric. Postop CABG and bioprosthetic aortic valve replacement on 12/26/2020 Started on low efficiency dialysis yesterday and tolerated 3 L ultrafiltration or 5 hours. Blood flow was 200 dialysate flow 400. she has a right femoral Akash 2. Improved. Currently on 50% FiO2 on BiPAP. On small doses of new sign off and her blood pressure stable in the 120s. 3. Mild degree of congestive heart failure 4. Shock liver, improving. 5. Thrombocytopenia secondary to DIC-like picture 6. Digoxin toxicity, level is 2.9. Recommendation; 1. Will dialyze her today for 5 hours with a small dialyzer F 40 with a blood flow of 200 and dialysate flow of 400 with the goal ultrafiltration of 2 L. 2. Watch the Zaroxolyn level. Hold any further digoxin 3. Watch liver function tests.
[2020-12-30 10:09] LABS: Glucose,Whole Blood 123 mg/dL (75-99)
[2020-12-30] MEDS: PIPERACILLIN-TAZOBACTAM 3.375 GM in SODIUM CHLORIDE 0.9% 100 ML IVPB SCH ×2 (11:01→20:18)
[2020-12-30 11:50] LABS: Glucose,Whole Blood 113 mg/dL (75-99)
--- NOTE | 2020-12-30 12:39 | P.PN ---
Subjective Progress Note Date: 12/30/20 HISTORY OF PRESENT ILLNESS: 12/27/2020 This is a 65-year-old female with a past medical history significant for CVA/TIA, hypertension, hyperlipidemia, nicotine dependence, and hypothyroidism. Patient follows in the office with Dr. Lee. We have been asked to see the patient in consultation for postoperative care. Patient examined this morning in the intensive care unit. Patient is status post aortic valve replacement and CABG 1: SVG to RCA. Postop day #1. Patient is sitting up in the chair. Patient is hemodynamically stable and not requiring any vasopressor support. Patient is on 5 L nasal cannula with oxygen saturations greater than 92%. The patient has a weak nonproductive cough. She denies chest pain or pressure. She denies shortness of breath. She reports nausea this morning. No episodes of emesis. She is receiving 500cc albumin at the time of examination. Telemetry reveals sinus mechanism. Chest xray small residual right apical pneumothorax may be present. Cardiomegaly. Small left pleural effusion. Laboratory data: WBC 15.2. Hemoglobin 8.0. Platelet count 160. Sodium 137. Potassium 4.8. BUN 19. Creatinine 0.78. Magnesium 2.2. Current home cardiac medications include amlodipine 5 mg daily, metoprolol tartrate 12.5 mg twice a day, Lipitor 40 mg daily, and aspirin 81 mg daily FIDEL: 12/15/2020 revealing severe aortic stenosis which is calcific in nature with mild eccentric aortic regurgitation. Mild mitral and tricuspid regurgitation. Biatrial enlargement. No clot in left atrial appendage. No PFO. Normal LV function. Cardiac catheterization: 12/15/2020 revealing 80% lesion of RCA. 12/28/2020 Patient is s/p CABG x 1 and AVR. POD #1. Patient examined this morning in the ICU. Patient developed hypotension, lactic acidosis, shortness of breath, and increasing oxygen requirement overnight. Patient was placed on a BiPAP. She received sodium bicarb. She is currently on dopamine and Primacor. Hemoglobin is 6.8. Patient received 1 unit packed RBCs. Blood pressure 102/39. Heart rate in the 70s. 12/29/2020 Patient examined this morning in the intensive care unit. Patient remains on a bipap. Overnight, the patient had decreased urine output. Patient was given IV lasix and subsequently started on a lasix drip. Patient with worsening hypotension and has been started on vasopressors. Patient also went into afib with RVR this morning. She has been started on Digoxin. Hemoglobin 6.0. Platelet count 26. INR 3.3. BUN 53. Creatinine 2.77. AST 11,442. ALT 3572. Patient is to receive a hemodialysis catheter today and will be started on hemodialysis. 12/30/2020 Patient examined this morning in the intensive care unit. She remains on a BiPAP. patient states her breathing has improved this morning. Patient is curre ntly maintaining sinus mechanism on telemetry. Patient underwent hemodialysis yesterday with removal of 3 L. she is also receiving hemodialysis again this morning. She remains on vasopressor support with Agustín-Synephrine. Hemoglobin 9.0. Platelet count 24. BUN 33. Creatinine 2.18. AST 8066. ALT 2707. PHYSICAL EXAM: VITAL SIGNS: Reviewed. GENERAL: Well-developed in no acute distress. HEENT: Head is normocephalic. Pupils are equal, round. Sclerae anicteric. Mucous membranes of the mouth are moist. Neck supple. No JVD or thyromegaly LUNGS: Respirations even and unlabored. Lungs diminished bilaterally. HEART: Regular rate and rhythm. S1 and S2 heard. Chest tube noted with no evidence of air leak. Heart hugger noted. EXTREMITIES: Normal range of motion. No clubbing or cyanosis. Peripheral pulses intact. Trace bilateral lower extremity edema ASSESSMENT: Severe aortic stenosis, s/p bioprosthetic aortic valve replacement, 12/26/2020 Coronary artery disease, s/p CABG x 1 SVG to RCA, 12/26/2020 New onset paroxysmal atrial fibrillation with RVR, currently maintaining sinus mechanism Acute hypoxic respiratory failure, requiring bipap Thrombocytopenia Coagulopathy, INR 3.3 Acute blood loss anemia Lactic acidosis Transaminitis, suspect secondary to hypotension Acute kidney injury Hypertension Hyperlipidemia CVA with residual right-sided blindness Hypothyroidism Former nicotine dependence PLAN: Continue postoperative management per CTS Continue telemetry monitoring Statin held due to elevated LFTs Aspirin, plavix, and metoprolol remain on hold. Monitor hemoglobin Patient to receive platelet transfusion today. hematology has been consulted Nephrology following. Patient receiving hemodialysis today. Further recommendations pending patient course Nurse practitioner note has been reviewed by physician. Signing provider agrees with the documented findings, assessment, and plan of care. Objective - Vital Signs Vital signs: Vital Signs Temp 97.2 F L 12/30/20 12:00 Pulse 82 12/30/20 12:05 Resp 19 12/30/20 12:00 BP 154/72 12/30/20 12:00 Pulse Ox 99 12/30/20 12:00 Intake & Output 12/29/20 12/30/20 12/30/20 18:59 06:59 18:59 Intake Total 4405.05 2237.026 3101.972 Output Total 413 3485 160 Balance 3992.05 -0309.186 2344.972 Weight 70 kg Intake: IV 606 1302 436 0.9 NaCl 540 200 Calcium gluconate 100 100 D5.9 320 200 PRBC's 310 Potassium Chloride 200 Zosyn 100 100 pressure bags 66 72 36 Intake, IV Titration 286.05 191.026 67.972 Amount Furosemide 100 mg In 181 Sodium Chloride 0.9% 90 ml @ 20 MG/HR 20 mls/hr IV .Q5H KOBI Rx#:[id number] Phenylephrine 40 mg In 105.05 191.026 67.972 Sodium Chloride 0.9% 250 ml @ 0.5 MCG/KG/MIN 13. 468 mls/hr IV .[id number] KOBI Rx#:[id number] Blood Product 3513 744 598 Ffp 24 Cpd Unit 2623 [id number] Ffp 24 Cpd Unit 307 [id number] Platelet Pheresis Acd-A 0 434 Pasc 1 Unit [id number] Platelet Pheresis Acd-A 273 Pasc 2 Unit [id number] Platelet Pheresis Pas 348 Psoralen Unit [id number] Platelet Pheresis Pas-C 250 Unit [id number] Rc As-1 Unit 310 [id number] Rc As-1 Unit 310 [id number] Hemodialysis 1999 Output: Chest Tube Drainage 390 480 160 Right Pleural/Mediastinal 390 480 160 Urine 23 5 0 Hemodialysis 3000 Other: Voiding Method Indwelling Catheter Indwelling Catheter Indwelling Catheter ABP, PAP, CO, CI - Last Documented Arterial Blood Pressure 170/76 Pulmonary Artery Pressure 12/5 Cardiac Output 4.2 Cardiac Index 2.6 - Labs CBC & Chem 7: 12/30/20 03:57 12/30/20 03:57 Labs: Abnormal Lab Results - Last 24 Hours (Table) 12/28/20 12/29/20 12/29/20 Range/Units 04:25 11:10 15:15 WBC (3.8-10.6) k/uL RBC (3.80-5.40) m/uL Hgb (11.4-16.0) gm/dL Hct (34.0-46.0) % RDW (11.5-15.5) % Plt Count (150-450) k/uL Neutrophils # (Manual) (1.3-7.7) k/uL Lymphocytes # (Manual) (1.0-4.8) k/uL Monocytes # (Manual) (0-1.0) k/uL Metamyelocytes # (Man) (0) k/uL Nucleated RBCs (0-0) /100 WBC PT (9.0-12.0) sec INR (<1.2) APTT (22.0-30.0) sec Fibrinogen (200-500) mg/dL D-Dimer (<0.60) mg/L FEU ABG HCO3 (21-25) mmol/L ABG Total CO2 (19-24) mmol/L ABG O2 Saturation (94-97) % ABG Lactic Acid (0.5-1.6) mmol/L Carbon Dioxide (22-30) mmol/L BUN (7-17) mg/dL Creatinine (0.52-1.04) mg/dL Glucose (74-99) mg/dL POC Glucose (mg/dL) (75-99) mg/dL Plasma Lactic Acid Iraj 3.9 H* (0.7-2.0) mmol/L Calcium (8.4-10.2) mg/dL Ionized Calcium Beatrice (4.5-5.3) mg/dL Total Bilirubin (0.2-1.3) mg/dL AST (14-36) U/L ALT (4-34) U/L Total Protein (6.3-8.2) g/dL Digoxin ng/mL Hep Bs Antibody Reactive A (Non-Reactive) Crossmatch See Detail 12/29/20 12/29/20 12/29/20 Range/Units 15:15 16:45 16:46 WBC 14.1 H (3.8-10.6) k/uL RBC 2.42 L (3.80-5.40) m/uL Hgb 7.5 L D (11.4-16.0) gm/dL Hct 22.0 L (34.0-46.0) % RDW 16.1 H (11.5-15.5) % Plt Count 54 L D (150-450) k/uL Neutrophils # (Manual) 13.25 H (1.3-7.7) k/uL Lymphocytes # (Manual) 0.42 L (1.0-4.8) k/uL Monocytes # (Manual) (0-1.0) k/uL Metamyelocytes # (Man) (0) k/uL Nucleated RBCs 2 H (0-0) /100 WBC PT (9.0-12.0) sec INR (<1.2) APTT (22.0-30.0) sec Fibrinogen (200-500) mg/dL D-Dimer (<0.60) mg/L FEU ABG HCO3 26 H (21-25) mmol/L ABG Total CO2 27 H (19-24) mmol/L ABG O2 Saturation 97.6 H (94-97) % ABG Lactic Acid (0.5-1.6) mmol/L Carbon Dioxide (22-30) mmol/L BUN (7-17) mg/dL Creatinine (0.52-1.04) mg/dL Glucose (74-99) mg/dL POC Glucose (mg/dL) 100 H (75-99) mg/dL Plasma Lactic Acid Iraj (0.7-2.0) mmol/L Calcium (8.4-10.2) mg/dL Ionized Calcium Beatrice (4.5-5.3) mg/dL Total Bilirubin (0.2-1.3) mg/dL AST (14-36) U/L ALT (4-34) U/L Total Protein (6.3-8.2) g/dL Digoxin ng/mL Hep Bs Antibody (Non-Reactive) Crossmatch 12/29/20 12/29/20 12/29/20 Range/Units 20:54 21:08 21:08 WBC 13.1 H (3.8-10.6) k/uL RBC 2.38 L (3.80-5.40) m/uL Hgb 7.4 L (11.4-16.0) gm/dL Hct 21.4 L (34.0-46.0) % RDW 16.0 H (11.5-15.5) % Plt Count 46 L (150-450) k/uL Neutrophils # (Manual) 11.14 H (1.3-7.7) k/uL Lymphocytes # (Manual) 0.79 L (1.0-4.8) k/uL Monocytes # (Manual) 1.18 H (0-1.0) k/uL Metamyelocytes # (Man) 0.13 H (0) k/uL Nucleated RBCs 7 H (0-0) /100 WBC PT 23.5 H (9.0-12.0) sec INR 2.4 H (<1.2) APTT 34.1 H (22.0-30.0) sec Fibrinogen (200-500) mg/dL D-Dimer 9.61 H (<0.60) mg/L FEU ABG HCO3 (21-25) mmol/L ABG Total CO2 27 H (19-24) mmol/L ABG O2 Saturation (94-97) % ABG Lactic Acid (0.5-1.6) mmol/L Carbon Dioxide (22-30) mmol/L BUN (7-17) mg/dL Creatinine (0.52-1.04) mg/dL Glucose (74-99) mg/dL POC Glucose (mg/dL) (75-99) mg/dL Plasma Lactic Acid Iraj (0.7-2.0) mmol/L Calcium (8.4-10.2) mg/dL Ionized Calcium Beatrice (4.5-5.3) mg/dL Total Bilirubin (0.2-1.3) mg/dL AST (14-36) U/L ALT (4-34) U/L Total Protein (6.3-8.2) g/dL Digoxin ng/mL Hep Bs Antibody (Non-Reactive) Crossmatch 12/29/20 12/29/20 12/30/20 Range/Units 21:08 21:08 03:00 WBC (3.8-10.6) k/uL RBC (3.80-5.40) m/uL Hgb (11.4-16.0) gm/dL Hct (34.0-46.0) % RDW (11.5-15.5) % Plt Count (150-450) k/uL Neutrophils # (Manual) (1.3-7.7) k/uL Lymphocytes # (Manual) (1.0-4.8) k/uL Monocytes # (Manual) (0-1.0) k/uL Metamyelocytes # (Man) (0) k/uL Nucleated RBCs (0-0) /100 WBC PT (9.0-12.0) sec INR (<1.2) APTT (22.0-30.0) sec Fibrinogen (200-500) mg/dL D-Dimer (<0.60) mg/L FEU ABG HCO3 (21-25) mmol/L ABG Total CO2 (19-24) mmol/L ABG O2 Saturation (94-97) % ABG Lactic Acid 4.3 H* 4.2 H* (0.5-1.6) mmol/L Carbon Dioxide (22-30) mmol/L BUN 27 H (7-17) mg/dL Creatinine 1.77 H (0.52-1.04) mg/dL Glucose (74-99) mg/dL POC Glucose (mg/dL) (75-99) mg/dL Plasma Lactic Acid Iraj (0.7-2.0) mmol/L Calcium 8.0 L (8.4-10.2) mg/dL Ionized Calcium Beatrice (4.5-5.3) mg/dL Total Bilirubin 4.1 H (0.2-1.3) mg/dL AST 9427 H (14-36) U/L ALT 2898 H (4-34) U/L Total Protein 5.6 L (6.3-8.2) g/dL Digoxin ng/mL Hep Bs Antibody (Non-Reactive) Crossmatch 12/30/20 12/30/20 12/30/20 Range/Units 03:50 03:57 03:57 WBC 13.3 H (3.8-10.6) k/uL RBC 2.84 L (3.80-5.40) m/uL Hgb 9.0 L D (11.4-16.0) gm/dL Hct 25.5 L (34.0-46.0) % RDW (11.5-15.5) % Plt Count 24 L (150-450) k/uL Neutrophils # (Manual) 10.91 H (1.3-7.7) k/uL Lymphocytes # (Manual) (1.0-4.8) k/uL Monocytes # (Manual) 1.33 H (0-1.0) k/uL Metamyelocytes # (Man) (0) k/uL Nucleated RBCs (0-0) /100 WBC PT 25.1 H (9.0-12.0) sec INR 2.6 H (<1.2) APTT 30.2 H (22.0-30.0) sec Fibrinogen (200-500) mg/dL D-Dimer (<0.60) mg/L FEU ABG HCO3 (21-25) mmol/L ABG Total CO2 (19-24) mmol/L ABG O2 Saturation (94-97) % ABG Lactic Acid (0.5-1.6) mmol/L Carbon Dioxide (22-30) mmol/L BUN (7-17) mg/dL Creatinine (0.52-1.04) mg/dL Glucose (74-99) mg/dL POC Glucose (mg/dL) 110 H (75-99) mg/dL Plasma Lactic Acid Iraj (0.7-2.0) mmol/L Calcium (8.4-10.2) mg/dL Ionized Calcium Beatrice (4.5-5.3) mg/dL Total Bilirubin (0.2-1.3) mg/dL AST (14-36) U/L ALT (4-34) U/L Total Protein (6.3-8.2) g/dL Digoxin ng/mL Hep Bs Antibody (Non-Reactive) Crossmatch 12/30/20 12/30/20 12/30/20 Range/Units 03:57 03:57 03:57 WBC (3.8-10.6) k/uL RBC (3.80-5.40) m/uL Hgb (11.4-16.0) gm/dL Hct (34.0-46.0) % RDW (11.5-15.5) % Plt Count (150-450) k/uL Neutrophils # (Manual) (1.3-7.7) k/uL Lymphocytes # (Manual) (1.0-4.8) k/uL Monocytes # (Manual) (0-1.0) k/uL Metamyelocytes # (Man) (0) k/uL Nucleated RBCs (0-0) /100 WBC PT (9.0-12.0) sec INR (<1.2) APTT (22.0-30.0) sec Fibrinogen 178 L (200-500) mg/dL D-Dimer (<0.60) mg/L FEU ABG HCO3 (21-25) mmol/L ABG Total CO2 (19-24) mmol/L ABG O2 Saturation (94-97) % ABG Lactic Acid (0.5-1.6) mmol/L Carbon Dioxide 21 L (22-30) mmol/L BUN 33 H (7-17) mg/dL Creatinine 2.18 H (0.52-1.04) mg/dL Glucose 105 H (74-99) mg/dL POC Glucose (mg/dL) (75-99) mg/dL Plasma Lactic Acid Iraj (0.7-2.0) mmol/L Calcium 7.9 L (8.4-10.2) mg/dL Ionized Calcium Beatrice 4.0 L (4.5-5.3) mg/dL Total Bilirubin 5.0 H (0.2-1.3) mg/dL AST 8066 H (14-36) U/L ALT 2707 H (4-34) U/L Total Protein 5.5 L (6.3-8.2) g/dL Digoxin 2.9 H* ng/mL Hep Bs Antibody (Non-Reactive) Crossmatch 12/30/20 12/30/20 12/30/20 Range/Units 05:58 08:09 10:08 WBC (3.8-10.6) k/uL RBC (3.80-5.40) m/uL Hgb (11.4-16.0) gm/dL Hct (34.0-46.0) % RDW (11.5-15.5) % Plt Count (150-450) k/uL Neutrophils # (Manual) (1.3-7.7) k/uL Lymphocytes # (Manual) (1.0-4.8) k/uL Monocytes # (Manual) (0-1.0) k/uL Metamyelocytes # (Man) (0) k/uL Nucleated RBCs (0-0) /100 WBC PT (9.0-12.0) sec INR (<1.2) APTT (22.0-30.0) sec Fibrinogen (200-500) mg/dL D-Dimer (<0.60) mg/L FEU ABG HCO3 (21-25) mmol/L ABG Total CO2 (19-24) mmol/L ABG O2 Saturation (94-97) % ABG Lactic Acid (0.5-1.6) mmol/L Carbon Dioxide (22-30) mmol/L BUN (7-17) mg/dL Creatinine (0.52-1.04) mg/dL Glucose (74-99) mg/dL POC Glucose (mg/dL) 125 H 138 H 123 H (75-99) mg/dL Plasma Lactic Acid Iraj (0.7-2.0) mmol/L Calcium (8.4-10.2) mg/dL Ionized Calcium Beatrice (4.5-5.3) mg/dL Total Bilirubin (0.2-1.3) mg/dL AST (14-36) U/L ALT (4-34) U/L Total Protein (6.3-8.2) g/dL Digoxin ng/mL Hep Bs Antibody (Non-Reactive) Crossmatch 12/30/20 Range/Units 11:49 WBC (3.8-10.6) k/uL RBC (3.80-5.40) m/uL Hgb (11.4-16.0) gm/dL Hct (34.0-46.0) % RDW (11.5-15.5) % Plt Count (150-450) k/uL Neutrophils # (Manual) (1.3-7.7) k/uL Lymphocytes # (Manual) (1.0-4.8) k/uL Monocytes # (Manual) (0-1.0) k/uL Metamyelocytes # (Man) (0) k/uL Nucleated RBCs (0-0) /100 WBC PT (9.0-12.0) sec INR (<1.2) APTT (22.0-30.0) sec Fibrinogen (200-500) mg/dL D-Dimer (<0.60) mg/L FEU ABG HCO3 (21-25) mmol/L ABG Total CO2 (19-24) mmol/L ABG O2 Saturation (94-97) % ABG Lactic Acid (0.5-1.6) mmol/L Carbon Dioxide (22-30) mmol/L BUN (7-17) mg/dL Creatinine (0.52-1.04) mg/dL Glucose (74-99) mg/dL POC Glucose (mg/dL) 113 H (75-99) mg/dL Plasma Lactic Acid Iraj (0.7-2.0) mmol/L Calcium (8.4-10.2) mg/dL Ionized Calcium Beatrice (4.5-5.3) mg/dL Total Bilirubin (0.2-1.3) mg/dL AST (14-36) U/L ALT (4-34) U/L Total Protein (6.3-8.2) g/dL Digoxin ng/mL Hep Bs Antibody (Non-Reactive) Crossmatch Microbiology - Last 24 Hours (Table) 12/28/20 15:19 Blood Culture - Preliminary Blood No Growth after 24 hours
[2020-12-30 13:59] LABS: Glucose,Whole Blood 102 mg/dL (75-99)
--- NOTE | 2020-12-30 14:49 | P.PN ---
Subjective Progress Note Date: 12/30/20 The patient is a 65-year-old female who has been receiving dialysis via a femoral catheter. She is doing well with this and tolerating her dialysis without issue Objective - Vital Signs Vital signs: Vital Signs Temp 97.2 F L 12/30/20 12:00 Pulse 84 12/30/20 14:00 Resp 20 12/30/20 14:00 BP 158/73 12/30/20 14:00 Pulse Ox 99 12/30/20 14:00 Intake & Output 12/29/20 12/30/20 12/30/20 18:59 06:59 18:59 Intake Total 4405.05 2237.026 3153.972 Output Total 413 3485 200 Balance 3992.05 -1758.012 5650.972 Weight 70 kg Intake: IV 606 1302 488 0.9 NaCl 540 200 Calcium gluconate 100 100 D5.9 320 240 PRBC's 310 Potassium Chloride 200 Zosyn 100 100 pressure bags 66 72 48 Intake, IV Titration 286.05 191.026 67.972 Amount Furosemide 100 mg In 181 Sodium Chloride 0.9% 90 ml @ 20 MG/HR 20 mls/hr IV .Q5H [facility] Rx#:[id number] Phenylephrine 40 mg In 105.05 191.026 67.972 Sodium Chloride 0.9% 250 ml @ 0.5 MCG/KG/MIN 13. 468 mls/hr IV .[id number] [facility] Rx#:[id number] Blood Product 3513 744 598 Ffp 24 Cpd Unit 2623 [id number] Ffp 24 Cpd Unit 307 [id number] Platelet Pheresis Acd-A 0 434 Pasc 1 Unit [id number] Platelet Pheresis Acd-A 273 Pasc 2 Unit [id number] Platelet Pheresis Pas 348 Psoralen Unit [id number] Platelet Pheresis Pas-C 250 Unit [id number] Rc As-1 Unit 310 [id number] Rc As-1 Unit 310 [id number] Hemodialysis 2000 Output: Chest Tube Drainage 390 480 200 Right Pleural/Mediastinal 390 480 200 Urine 23 5 0 Hemodialysis 3000 Other: Voiding Method Indwelling Catheter Indwelling Catheter Indwelling Catheter ABP, PAP, CO, CI - Last Documented Arterial Blood Pressure 152/74 Pulmonary Artery Pressure 12/5 Cardiac Output 4.2 Cardiac Index 2.6 - Exam Gen. is a pleasant cooperative female. No apparent distress. HeartRRR at this time. Lungs clear although decreased breath sounds bilaterally. Tubes in place. Abdomen soft. Femoral dialysis catheter in place were no hematoma. Currently in use. - Labs CBC & Chem 7: 12/30/20 03:57 12/30/20 03:57 Labs: Abnormal Lab Results - Last 24 Hours (Table) 12/28/20 12/29/20 12/29/20 Range/Units 04:25 11:10 15:15 WBC (3.8-10.6) k/uL RBC (3.80-5.40) m/uL Hgb (11.4-16.0) gm/dL Hct (34.0-46.0) % RDW (11.5-15.5) % Plt Count (150-450) k/uL Neutrophils # (Manual) (1.3-7.7) k/uL Lymphocytes # (Manual) (1.0-4.8) k/uL Monocytes # (Manual) (0-1.0) k/uL Metamyelocytes # (Man) (0) k/uL Nucleated RBCs (0-0) /100 WBC PT (9.0-12.0) sec INR (<1.2) APTT (22.0-30.0) sec Fibrinogen (200-500) mg/dL D-Dimer (<0.60) mg/L FEU ABG HCO3 (21-25) mmol/L ABG Total CO2 (19-24) mmol/L ABG O2 Saturation (94-97) % ABG Lactic Acid (0.5-1.6) mmol/L Carbon Dioxide (22-30) mmol/L BUN (7-17) mg/dL Creatinine (0.52-1.04) mg/dL Glucose (74-99) mg/dL POC Glucose (mg/dL) (75-99) mg/dL Plasma Lactic Acid Iraj 3.9 H* (0.7-2.0) mmol/L Calcium (8.4-10.2) mg/dL Ionized Calcium Beatrice (4.5-5.3) mg/dL Total Bilirubin (0.2-1.3) mg/dL AST (14-36) U/L ALT (4-34) U/L Total Protein (6.3-8.2) g/dL Digoxin ng/mL Hep Bs Antibody Reactive A (Non-Reactive) Crossmatch See Detail 12/29/20 12/29/20 12/29/20 Range/Units 15:15 16:45 16:46 WBC 14.1 H (3.8-10.6) k/uL RBC 2.42 L (3.80-5.40) m/uL Hgb 7.5 L D (11.4-16.0) gm/dL Hct 22.0 L (34.0-46.0) % RDW 16.1 H (11.5-15.5) % Plt Count 54 L D (150-450) k/uL Neutrophils # (Manual) 13.25 H (1.3-7.7) k/uL Lymphocytes # (Manual) 0.42 L (1.0-4.8) k/uL Monocytes # (Manual) (0-1.0) k/uL Metamyelocytes # (Man) (0) k/uL Nucleated RBCs 2 H (0-0) /100 WBC PT (9.0-12.0) sec INR (<1.2) APTT (22.0-30.0) sec Fibrinogen (200-500) mg/dL D-Dimer (<0.60) mg/L FEU ABG HCO3 26 H (21-25) mmol/L ABG Total CO2 27 H (19-24) mmol/L ABG O2 Saturation 97.6 H (94-97) % ABG Lactic Acid (0.5-1.6) mmol/L Carbon Dioxide (22-30) mmol/L BUN (7-17) mg/dL Creatinine (0.52-1.04) mg/dL Glucose (74-99) mg/dL POC Glucose (mg/dL) 100 H (75-99) mg/dL Plasma Lactic Acid Iraj (0.7-2.0) mmol/L Calcium (8.4-10.2) mg/dL Ionized Calcium Beatrice (4.5-5.3) mg/dL Total Bilirubin (0.2-1.3) mg/dL AST (14-36) U/L ALT (4-34) U/L Total Protein (6.3-8.2) g/dL Digoxin ng/mL Hep Bs Antibody (Non-Reactive) Crossmatch 12/29/20 12/29/20 12/29/20 Range/Units 20:54 21:08 21:08 WBC 13.1 H (3.8-10.6) k/uL RBC 2.38 L (3.80-5.40) m/uL Hgb 7.4 L (11.4-16.0) gm/dL Hct 21.4 L (34.0-46.0) % RDW 16.0 H (11.5-15.5) % Plt Count 46 L (150-450) k/uL Neutrophils # (Manual) 11.14 H (1.3-7.7) k/uL Lymphocytes # (Manual) 0.79 L (1.0-4.8) k/uL Monocytes # (Manual) 1.18 H (0-1.0) k/uL Metamyelocytes # (Man) 0.13 H (0) k/uL Nucleated RBCs 7 H (0-0) /100 WBC PT 23.5 H (9.0-12.0) sec INR 2.4 H (<1.2) APTT 34.1 H (22.0-30.0) sec Fibrinogen (200-500) mg/dL D-Dimer 9.61 H (<0.60) mg/L FEU ABG HCO3 (21-25) mmol/L ABG Total CO2 27 H (19-24) mmol/L ABG O2 Saturation (94-97) % ABG Lactic Acid (0.5-1.6) mmol/L Carbon Dioxide (22-30) mmol/L BUN (7-17) mg/dL Creatinine (0.52-1.04) mg/dL Glucose (74-99) mg/dL POC Glucose (mg/dL) (75-99) mg/dL Plasma Lactic Acid Iraj (0.7-2.0) mmol/L Calcium (8.4-10.2) mg/dL Ionized Calcium Beatrice (4.5-5.3) mg/dL Total Bilirubin (0.2-1.3) mg/dL AST (14-36) U/L ALT (4-34) U/L Total Protein (6.3-8.2) g/dL Digoxin ng/mL Hep Bs Antibody (Non-Reactive) Crossmatch 12/29/20 12/29/20 12/30/20 Range/Units 21:08 21:08 03:00 WBC (3.8-10.6) k/uL RBC (3.80-5.40) m/uL Hgb (11.4-16.0) gm/dL Hct (34.0-46.0) % RDW (11.5-15.5) % Plt Count (150-450) k/uL Neutrophils # (Manual) (1.3-7.7) k/uL Lymphocytes # (Manual) (1.0-4.8) k/uL Monocytes # (Manual) (0-1.0) k/uL Metamyelocytes # (Man) (0) k/uL Nucleated RBCs (0-0) /100 WBC PT (9.0-12.0) sec INR (<1.2) APTT (22.0-30.0) sec Fibrinogen (200-500) mg/dL D-Dimer (<0.60) mg/L FEU ABG HCO3 (21-25) mmol/L ABG Total CO2 (19-24) mmol/L ABG O2 Saturation (94-97) % ABG Lactic Acid 4.3 H* 4.2 H* (0.5-1.6) mmol/L Carbon Dioxide (22-30) mmol/L BUN 27 H (7-17) mg/dL Creatinine 1.77 H (0.52-1.04) mg/dL Glucose (74-99) mg/dL POC Glucose (mg/dL) (75-99) mg/dL Plasma Lactic Acid Iraj (0.7-2.0) mmol/L Calcium 8.0 L (8.4-10.2) mg/dL Ionized Calcium Beatrice (4.5-5.3) mg/dL Total Bilirubin 4.1 H (0.2-1.3) mg/dL AST 9427 H (14-36) U/L ALT 2898 H (4-34) U/L Total Protein 5.6 L (6.3-8.2) g/dL Digoxin ng/mL Hep Bs Antibody (Non-Reactive) Crossmatch 12/30/20 12/30/20 12/30/20 Range/Units 03:50 03:57 03:57 WBC 13.3 H (3.8-10.6) k/uL RBC 2.84 L (3.80-5.40) m/uL Hgb 9.0 L D (11.4-16.0) gm/dL Hct 25.5 L (34.0-46.0) % RDW (11.5-15.5) % Plt Count 24 L (150-450) k/uL Neutrophils # (Manual) 10.91 H (1.3-7.7) k/uL Lymphocytes # (Manual) (1.0-4.8) k/uL Monocytes # (Manual) 1.33 H (0-1.0) k/uL Metamyelocytes # (Man) (0) k/uL Nucleated RBCs (0-0) /100 WBC PT 25.1 H (9.0-12.0) sec INR 2.6 H (<1.2) APTT 30.2 H (22.0-30.0) sec Fibrinogen (200-500) mg/dL D-Dimer (<0.60) mg/L FEU ABG HCO3 (21-25) mmol/L ABG Total CO2 (19-24) mmol/L ABG O2 Saturation (94-97) % ABG Lactic Acid (0.5-1.6) mmol/L Carbon Dioxide (22-30) mmol/L BUN (7-17) mg/dL Creatinine (0.52-1.04) mg/dL Glucose (74-99) mg/dL POC Glucose (mg/dL) 110 H (75-99) mg/dL Plasma Lactic Acid Iraj (0.7-2.0) mmol/L Calcium (8.4-10.2) mg/dL Ionized Calcium Beatrice (4.5-5.3) mg/dL Total Bilirubin (0.2-1.3) mg/dL AST (14-36) U/L ALT (4-34) U/L Total Protein (6.3-8.2) g/dL Digoxin ng/mL Hep Bs Antibody (Non-Reactive) Crossmatch 12/30/20 12/30/20 12/30/20 Range/Units 03:57 03:57 03:57 WBC (3.8-10.6) k/uL RBC (3.80-5.40) m/uL Hgb (11.4-16.0) gm/dL Hct (34.0-46.0) % RDW (11.5-15.5) % Plt Count (150-450) k/uL Neutrophils # (Manual) (1.3-7.7) k/uL Lymphocytes # (Manual) (1.0-4.8) k/uL Monocytes # (Manual) (0-1.0) k/uL Metamyelocytes # (Man) (0) k/uL Nucleated RBCs (0-0) /100 WBC PT (9.0-12.0) sec INR (<1.2) APTT (22.0-30.0) sec Fibrinogen 178 L (200-500) mg/dL D-Dimer (<0.60) mg/L FEU ABG HCO3 (21-25) mmol/L ABG Total CO2 (19-24) mmol/L ABG O2 Saturation (94-97) % ABG Lactic Acid (0.5-1.6) mmol/L Carbon Dioxide 21 L (22-30) mmol/L BUN 33 H (7-17) mg/dL Creatinine 2.18 H (0.52-1.04) mg/dL Glucose 105 H (74-99) mg/dL POC Glucose (mg/dL) (75-99) mg/dL Plasma Lactic Acid Iraj (0.7-2.0) mmol/L Calcium 7.9 L (8.4-10.2) mg/dL Ionized Calcium Beatrice 4.0 L (4.5-5.3) mg/dL Total Bilirubin 5.0 H (0.2-1.3) mg/dL AST 8066 H (14-36) U/L ALT 2707 H (4-34) U/L Total Protein 5.5 L (6.3-8.2) g/dL Digoxin 2.9 H* ng/mL Hep Bs Antibody (Non-Reactive) Crossmatch 12/30/20 12/30/20 12/30/20 Range/Units 05:58 08:09 10:08 WBC (3.8-10.6) k/uL RBC (3.80-5.40) m/uL Hgb (11.4-16.0) gm/dL Hct (34.0-46.0) % RDW (11.5-15.5) % Plt Count (150-450) k/uL Neutrophils # (Manual) (1.3-7.7) k/uL Lymphocytes # (Manual) (1.0-4.8) k/uL Monocytes # (Manual) (0-1.0) k/uL Metamyelocytes # (Man) (0) k/uL Nucleated RBCs (0-0) /100 WBC PT (9.0-12.0) sec INR (<1.2) APTT (22.0-30.0) sec Fibrinogen (200-500) mg/dL D-Dimer (<0.60) mg/L FEU ABG HCO3 (21-25) mmol/L ABG Total CO2 (19-24) mmol/L ABG O2 Saturation (94-97) % ABG Lactic Acid (0.5-1.6) mmol/L Carbon Dioxide (22-30) mmol/L BUN (7-17) mg/dL Creatinine (0.52-1.04) mg/dL Glucose (74-99) mg/dL POC Glucose (mg/dL) 125 H 138 H 123 H (75-99) mg/dL Plasma Lactic Acid Iraj (0.7-2.0) mmol/L Calcium (8.4-10.2) mg/dL Ionized Calcium Beatrice (4.5-5.3) mg/dL Total Bilirubin (0.2-1.3) mg/dL AST (14-36) U/L ALT (4-34) U/L Total Protein (6.3-8.2) g/dL Digoxin ng/mL Hep Bs Antibody (Non-Reactive) Crossmatch 12/30/20 12/30/20 Range/Units 11:49 13:57 WBC (3.8-10.6) k/uL RBC (3.80-5.40) m/uL Hgb (11.4-16.0) gm/dL Hct (34.0-46.0) % RDW (11.5-15.5) % Plt Count (150-450) k/uL Neutrophils # (Manual) (1.3-7.7) k/uL Lymphocytes # (Manual) (1.0-4.8) k/uL Monocytes # (Manual) (0-1.0) k/uL Metamyelocytes # (Man) (0) k/uL Nucleated RBCs (0-0) /100 WBC PT (9.0-12.0) sec INR (<1.2) APTT (22.0-30.0) sec Fibrinogen (200-500) mg/dL D-Dimer (<0.60) mg/L FEU ABG HCO3 (21-25) mmol/L ABG Total CO2 (19-24) mmol/L ABG O2 Saturation (94-97) % ABG Lactic Acid (0.5-1.6) mmol/L Carbon Dioxide (22-30) mmol/L BUN (7-17) mg/dL Creatinine (0.52-1.04) mg/dL Glucose (74-99) mg/dL POC Glucose (mg/dL) 113 H 102 H (75-99) mg/dL Plasma Lactic Acid Iraj (0.7-2.0) mmol/L Calcium (8.4-10.2) mg/dL Ionized Calcium Beatrice (4.5-5.3) mg/dL Total Bilirubin (0.2-1.3) mg/dL AST (14-36) U/L ALT (4-34) U/L Total Protein (6.3-8.2) g/dL Digoxin ng/mL Hep Bs Antibody (Non-Reactive) Crossmatch Microbiology - Last 24 Hours (Table) 12/28/20 15:19 Blood Culture - Preliminary Blood No Growth after 24 hours Assessment and Plan Assessment: MERVAT requiring dialysis Severe aortic stenosis status post bioprosthetic valve replacement Coronary artery disease status post CABG Atrial fibrillation with RVR Acute hypoxemic respiratory failure requiring BiPAP Some cytopenia Coagulopathy elevated INR Plan: Continue dialysis as recommended per nephrology. We'll be available to place a tunneled catheter if this becomes necessary or recommended.
--- NOTE | 2020-12-30 15:11 | P.PN ---
Subjective Progress Note Date: 12/30/20 Principal diagnosis: 1. Septic shock 2. DIC 3. Liver failure 4. Kidney failure 5. Aortic stenosis On dialysis. Fibrinogen 178. Plt 24. Objective - Vital Signs Vital signs: Vital Signs Temp 97.2 F L 12/30/20 12:00 Pulse 84 12/30/20 14:00 Resp 20 12/30/20 14:00 BP 158/73 12/30/20 14:00 Pulse Ox 99 12/30/20 14:00 Intake & Output 12/29/20 12/30/20 12/30/20 18:59 06:59 18:59 Intake Total 4405.05 2237.026 3153.972 Output Total 413 3485 200 Balance 3992.05 -2871.164 5172.972 Weight 70 kg Intake: IV 606 1302 488 0.9 NaCl 540 200 Calcium gluconate 100 100 D5.9 320 240 PRBC's 310 Potassium Chloride 200 Zosyn 100 100 pressure bags 66 72 48 Intake, IV Titration 286.05 191.026 67.972 Amount Furosemide 100 mg In 181 Sodium Chloride 0.9% 90 ml @ 20 MG/HR 20 mls/hr IV .Q5H [facility] Rx#:[id number] Phenylephrine 40 mg In 105.05 191.026 67.972 Sodium Chloride 0.9% 250 ml @ 0.5 MCG/KG/MIN 13. 468 mls/hr IV .[id number] [facility] Rx#:[id number] Blood Product 3513 744 598 Ffp 24 Cpd Unit 2623 [id number] Ffp 24 Cpd Unit 307 [id number] Platelet Pheresis Acd-A 0 434 Pasc 1 Unit [id number] Platelet Pheresis Acd-A 273 Pasc 2 Unit [id number] Platelet Pheresis Pas 348 Psoralen Unit [id number] Platelet Pheresis Pas-C 250 Unit [id number] Rc As-1 Unit 310 [id number] Rc As-1 Unit 310 [id number] Hemodialysis 2000 Output: Chest Tube Drainage 390 480 200 Right Pleural/Mediastinal 390 480 200 Urine 23 5 0 Hemodialysis 3000 Other: Voiding Method Indwelling Catheter Indwelling Catheter Indwelling Catheter ABP, PAP, CO, CI - Last Documented Arterial Blood Pressure 152/74 Pulmonary Artery Pressure 12/5 Cardiac Output 4.2 Cardiac Index 2.6 - Labs CBC & Chem 7: 12/30/20 03:57 12/30/20 03:57 Labs: Abnormal Lab Results - Last 24 Hours (Table) 12/28/20 12/29/20 12/29/20 Range/Units 04:25 11:10 15:15 WBC (3.8-10.6) k/uL RBC (3.80-5.40) m/uL Hgb (11.4-16.0) gm/dL Hct (34.0-46.0) % RDW (11.5-15.5) % Plt Count (150-450) k/uL Neutrophils # (Manual) (1.3-7.7) k/uL Lymphocytes # (Manual) (1.0-4.8) k/uL Monocytes # (Manual) (0-1.0) k/uL Metamyelocytes # (Man) (0) k/uL Nucleated RBCs (0-0) /100 WBC PT (9.0-12.0) sec INR (<1.2) APTT (22.0-30.0) sec Fibrinogen (200-500) mg/dL D-Dimer (<0.60) mg/L FEU ABG HCO3 (21-25) mmol/L ABG Total CO2 (19-24) mmol/L ABG O2 Saturation (94-97) % ABG Lactic Acid (0.5-1.6) mmol/L Carbon Dioxide (22-30) mmol/L BUN (7-17) mg/dL Creatinine (0.52-1.04) mg/dL Glucose (74-99) mg/dL POC Glucose (mg/dL) (75-99) mg/dL Plasma Lactic Acid Iraj 3.9 H* (0.7-2.0) mmol/L Calcium (8.4-10.2) mg/dL Ionized Calcium Beatrice (4.5-5.3) mg/dL Total Bilirubin (0.2-1.3) mg/dL AST (14-36) U/L ALT (4-34) U/L Total Protein (6.3-8.2) g/dL Digoxin ng/mL Hep Bs Antibody Reactive A (Non-Reactive) Crossmatch See Detail 12/29/20 12/29/20 12/29/20 Range/Units 15:15 16:45 16:46 WBC 14.1 H (3.8-10.6) k/uL RBC 2.42 L (3.80-5.40) m/uL Hgb 7.5 L D (11.4-16.0) gm/dL Hct 22.0 L (34.0-46.0) % RDW 16.1 H (11.5-15.5) % Plt Count 54 L D (150-450) k/uL Neutrophils # (Manual) 13.25 H (1.3-7.7) k/uL Lymphocytes # (Manual) 0.42 L (1.0-4.8) k/uL Monocytes # (Manual) (0-1.0) k/uL Metamyelocytes # (Man) (0) k/uL Nucleated RBCs 2 H (0-0) /100 WBC PT (9.0-12.0) sec INR (<1.2) APTT (22.0-30.0) sec Fibrinogen (200-500) mg/dL D-Dimer (<0.60) mg/L FEU ABG HCO3 26 H (21-25) mmol/L ABG Total CO2 27 H (19-24) mmol/L ABG O2 Saturation 97.6 H (94-97) % ABG Lactic Acid (0.5-1.6) mmol/L Carbon Dioxide (22-30) mmol/L BUN (7-17) mg/dL Creatinine (0.52-1.04) mg/dL Glucose (74-99) mg/dL POC Glucose (mg/dL) 100 H (75-99) mg/dL Plasma Lactic Acid Iraj (0.7-2.0) mmol/L Calcium (8.4-10.2) mg/dL Ionized Calcium Beatrice (4.5-5.3) mg/dL Total Bilirubin (0.2-1.3) mg/dL AST (14-36) U/L ALT (4-34) U/L Total Protein (6.3-8.2) g/dL Digoxin ng/mL Hep Bs Antibody (Non-Reactive) Crossmatch 12/29/20 12/29/20 12/29/20 Range/Units 20:54 21:08 21:08 WBC 13.1 H (3.8-10.6) k/uL RBC 2.38 L (3.80-5.40) m/uL Hgb 7.4 L (11.4-16.0) gm/dL Hct 21.4 L (34.0-46.0) % RDW 16.0 H (11.5-15.5) % Plt Count 46 L (150-450) k/uL Neutrophils # (Manual) 11.14 H (1.3-7.7) k/uL Lymphocytes # (Manual) 0.79 L (1.0-4.8) k/uL Monocytes # (Manual) 1.18 H (0-1.0) k/uL Metamyelocytes # (Man) 0.13 H (0) k/uL Nucleated RBCs 7 H (0-0) /100 WBC PT 23.5 H (9.0-12.0) sec INR 2.4 H (<1.2) APTT 34.1 H (22.0-30.0) sec Fibrinogen (200-500) mg/dL D-Dimer 9.61 H (<0.60) mg/L FEU ABG HCO3 (21-25) mmol/L ABG Total CO2 27 H (19-24) mmol/L ABG O2 Saturation (94-97) % ABG Lactic Acid (0.5-1.6) mmol/L Carbon Dioxide (22-30) mmol/L BUN (7-17) mg/dL Creatinine (0.52-1.04) mg/dL Glucose (74-99) mg/dL POC Glucose (mg/dL) (75-99) mg/dL Plasma Lactic Acid Iraj (0.7-2.0) mmol/L Calcium (8.4-10.2) mg/dL Ionized Calcium Beatrice (4.5-5.3) mg/dL Total Bilirubin (0.2-1.3) mg/dL AST (14-36) U/L ALT (4-34) U/L Total Protein (6.3-8.2) g/dL Digoxin ng/mL Hep Bs Antibody (Non-Reactive) Crossmatch 12/29/20 12/29/20 12/30/20 Range/Units 21:08 21:08 03:00 WBC (3.8-10.6) k/uL RBC (3.80-5.40) m/uL Hgb (11.4-16.0) gm/dL Hct (34.0-46.0) % RDW (11.5-15.5) % Plt Count (150-450) k/uL Neutrophils # (Manual) (1.3-7.7) k/uL Lymphocytes # (Manual) (1.0-4.8) k/uL Monocytes # (Manual) (0-1.0) k/uL Metamyelocytes # (Man) (0) k/uL Nucleated RBCs (0-0) /100 WBC PT (9.0-12.0) sec INR (<1.2) APTT (22.0-30.0) sec Fibrinogen (200-500) mg/dL D-Dimer (<0.60) mg/L FEU ABG HCO3 (21-25) mmol/L ABG Total CO2 (19-24) mmol/L ABG O2 Saturation (94-97) % ABG Lactic Acid 4.3 H* 4.2 H* (0.5-1.6) mmol/L Carbon Dioxide (22-30) mmol/L BUN 27 H (7-17) mg/dL Creatinine 1.77 H (0.52-1.04) mg/dL Glucose (74-99) mg/dL POC Glucose (mg/dL) (75-99) mg/dL Plasma Lactic Acid Iraj (0.7-2.0) mmol/L Calcium 8.0 L (8.4-10.2) mg/dL Ionized Calcium Beatrice (4.5-5.3) mg/dL Total Bilirubin 4.1 H (0.2-1.3) mg/dL AST 9427 H (14-36) U/L ALT 2898 H (4-34) U/L Total Protein 5.6 L (6.3-8.2) g/dL Digoxin ng/mL Hep Bs Antibody (Non-Reactive) Crossmatch 12/30/20 12/30/20 12/30/20 Range/Units 03:50 03:57 03:57 WBC 13.3 H (3.8-10.6) k/uL RBC 2.84 L (3.80-5.40) m/uL Hgb 9.0 L D (11.4-16.0) gm/dL Hct 25.5 L (34.0-46.0) % RDW (11.5-15.5) % Plt Count 24 L (150-450) k/uL Neutrophils # (Manual) 10.91 H (1.3-7.7) k/uL Lymphocytes # (Manual) (1.0-4.8) k/uL Monocytes # (Manual) 1.33 H (0-1.0) k/uL Metamyelocytes # (Man) (0) k/uL Nucleated RBCs (0-0) /100 WBC PT 25.1 H (9.0-12.0) sec INR 2.6 H (<1.2) APTT 30.2 H (22.0-30.0) sec Fibrinogen (200-500) mg/dL D-Dimer (<0.60) mg/L FEU ABG HCO3 (21-25) mmol/L ABG Total CO2 (19-24) mmol/L ABG O2 Saturation (94-97) % ABG Lactic Acid (0.5-1.6) mmol/L Carbon Dioxide (22-30) mmol/L BUN (7-17) mg/dL Creatinine (0.52-1.04) mg/dL Glucose (74-99) mg/dL POC Glucose (mg/dL) 110 H (75-99) mg/dL Plasma Lactic Acid Iraj (0.7-2.0) mmol/L Calcium (8.4-10.2) mg/dL Ionized Calcium Beatrice (4.5-5.3) mg/dL Total Bilirubin (0.2-1.3) mg/dL AST (14-36) U/L ALT (4-34) U/L Total Protein (6.3-8.2) g/dL Digoxin ng/mL Hep Bs Antibody (Non-Reactive) Crossmatch 12/30/20 12/30/20 12/30/20 Range/Units 03:57 03:57 03:57 WBC (3.8-10.6) k/uL RBC (3.80-5.40) m/uL Hgb (11.4-16.0) gm/dL Hct (34.0-46.0) % RDW (11.5-15.5) % Plt Count (150-450) k/uL Neutrophils # (Manual) (1.3-7.7) k/uL Lymphocytes # (Manual) (1.0-4.8) k/uL Monocytes # (Manual) (0-1.0) k/uL Metamyelocytes # (Man) (0) k/uL Nucleated RBCs (0-0) /100 WBC PT (9.0-12.0) sec INR (<1.2) APTT (22.0-30.0) sec Fibrinogen 178 L (200-500) mg/dL D-Dimer (<0.60) mg/L FEU ABG HCO3 (21-25) mmol/L ABG Total CO2 (19-24) mmol/L ABG O2 Saturation (94-97) % ABG Lactic Acid (0.5-1.6) mmol/L Carbon Dioxide 21 L (22-30) mmol/L BUN 33 H (7-17) mg/dL Creatinine 2.18 H (0.52-1.04) mg/dL Glucose 105 H (74-99) mg/dL POC Glucose (mg/dL) (75-99) mg/dL Plasma Lactic Acid Iraj (0.7-2.0) mmol/L Calcium 7.9 L (8.4-10.2) mg/dL Ionized Calcium Beatrice 4.0 L (4.5-5.3) mg/dL Total Bilirubin 5.0 H (0.2-1.3) mg/dL AST 8066 H (14-36) U/L ALT 2707 H (4-34) U/L Total Protein 5.5 L (6.3-8.2) g/dL Digoxin 2.9 H* ng/mL Hep Bs Antibody (Non-Reactive) Crossmatch 12/30/20 12/30/20 12/30/20 Range/Units 05:58 08:09 10:08 WBC (3.8-10.6) k/uL RBC (3.80-5.40) m/uL Hgb (11.4-16.0) gm/dL Hct (34.0-46.0) % RDW (11.5-15.5) % Plt Count (150-450) k/uL Neutrophils # (Manual) (1.3-7.7) k/uL Lymphocytes # (Manual) (1.0-4.8) k/uL Monocytes # (Manual) (0-1.0) k/uL Metamyelocytes # (Man) (0) k/uL Nucleated RBCs (0-0) /100 WBC PT (9.0-12.0) sec INR (<1.2) APTT (22.0-30.0) sec Fibrinogen (200-500) mg/dL D-Dimer (<0.60) mg/L FEU ABG HCO3 (21-25) mmol/L ABG Total CO2 (19-24) mmol/L ABG O2 Saturation (94-97) % ABG Lactic Acid (0.5-1.6) mmol/L Carbon Dioxide (22-30) mmol/L BUN (7-17) mg/dL Creatinine (0.52-1.04) mg/dL Glucose (74-99) mg/dL POC Glucose (mg/dL) 125 H 138 H 123 H (75-99) mg/dL Plasma Lactic Acid Iraj (0.7-2.0) mmol/L Calcium (8.4-10.2) mg/dL Ionized Calcium Beatrice (4.5-5.3) mg/dL Total Bilirubin (0.2-1.3) mg/dL AST (14-36) U/L ALT (4-34) U/L Total Protein (6.3-8.2) g/dL Digoxin ng/mL Hep Bs Antibody (Non-Reactive) Crossmatch 12/30/20 12/30/20 Range/Units 11:49 13:57 WBC (3.8-10.6) k/uL RBC (3.80-5.40) m/uL Hgb (11.4-16.0) gm/dL Hct (34.0-46.0) % RDW (11.5-15.5) % Plt Count (150-450) k/uL Neutrophils # (Manual) (1.3-7.7) k/uL Lymphocytes # (Manual) (1.0-4.8) k/uL Monocytes # (Manual) (0-1.0) k/uL Metamyelocytes # (Man) (0) k/uL Nucleated RBCs (0-0) /100 WBC PT (9.0-12.0) sec INR (<1.2) APTT (22.0-30.0) sec Fibrinogen (200-500) mg/dL D-Dimer (<0.60) mg/L FEU ABG HCO3 (21-25) mmol/L ABG Total CO2 (19-24) mmol/L ABG O2 Saturation (94-97) % ABG Lactic Acid (0.5-1.6) mmol/L Carbon Dioxide (22-30) mmol/L BUN (7-17) mg/dL Creatinine (0.52-1.04) mg/dL Glucose (74-99) mg/dL POC Glucose (mg/dL) 113 H 102 H (75-99) mg/dL Plasma Lactic Acid Iraj (0.7-2.0) mmol/L Calcium (8.4-10.2) mg/dL Ionized Calcium Beatrice (4.5-5.3) mg/dL Total Bilirubin (0.2-1.3) mg/dL AST (14-36) U/L ALT (4-34) U/L Total Protein (6.3-8.2) g/dL Digoxin ng/mL Hep Bs Antibody (Non-Reactive) Crossmatch Microbiology - Last 24 Hours (Table) 12/28/20 15:19 Blood Culture - Preliminary Blood No Growth after 24 hours Assessment and Plan Assessment: 1. Septic shock 2. Coagulopathy due to DIC 3. Anemia 4. Thrombocytopenia 5. Liver failure 6. Kidney failure 7. Aortic stenosis 8. CAD Plan: Ms. Silva is a 65 yo female here for aortic stenosis s/p surgery/CABG, course complicated by septic shock with multiorgan failure due to shock including shock liver and renal failure on dialysis. Coagulopathy and cytopenia due to BM shock and liver disease and DIC. Continue supportive care. Supportive transfusion. HIT antibody sent, pending. Monitor DIC profile, including fibrinogen and transfuse cryoprecipitate for fibrinogen <100.
[2020-12-30 15:53] LABS: Glucose,Whole Blood 106 mg/dL (75-99)
[2020-12-30 18:27] LABS: Glucose,Whole Blood 112 mg/dL (75-99)
[2020-12-30 19:18] LABS: Basophils % (A) 0 %; Eosinophils # (A) 0.1 k/uL (0-0.7); Eosinophils % (A) 1 %; HCT 24.6 % (34.0-46.0); HGB 9.1 gm/dL (11.4-16.0); Lymphocytes # (A) 0.8 k/uL (1.0-4.8); Lymphocytes % (A) 8 %; MCH 32.8 pg (25.0-35.0); MCHC 36.8 g/dL (31.0-37.0); Mean Platelet Volume 11.5; Monocytes # (A) 1.1 k/uL (0-1.0); Monocytes % (A) 10 %; Neutrophils # (A) 8.6 k/uL (1.3-7.7); Neutrophils % (A) 80 %; Poikilocytosis Slight; RBC 2.76 m/uL (3.80-5.40); RDW 15.2 % (11.5-15.5); WBC 10.8 k/uL (3.8-10.6)
[2020-12-30 19:19] LABS: INR 2.3 (<1.2); Partial Thromboplastin Time 31.9 sec (22.0-30.0); Prothrombin Time 22.4 sec (9.0-12.0)
[2020-12-30 19:20] LABS: Platelet Count 30 k/uL (150-450)
[2020-12-30 19:59] LABS: Albumin 3.8 g/dL (3.5-5.0); Calcium 8.1 mg/dL (8.4-10.2); Potassium 3.7 mmol/L (3.5-5.1); Total Bilirubin 6.7 mg/dL (0.2-1.3); Total Protein 5.5 g/dL (6.3-8.2)
[2020-12-30 20:09] LABS: Digoxin 2.1 ng/mL
[2020-12-30 20:17] LABS: Glucose,Whole Blood 119 mg/dL (75-99)
[2020-12-30] MEDS: SENNOSIDES-DOCUSATE SODIUM 1 EACH TAB PO SCH (20:17)
[2020-12-30] MEDS: LEVOTHYROXINE 25 MCG TAB PO SCH (20:17)
[2020-12-30] MEDS: SERTRALINE 25 MG TAB PO SCH (20:17)
[2020-12-30] MEDS ORDERED: POTASSIUM CHLORIDE 20 MEQ in WATER FOR INJECTION 1 100ML.BAG IVPB ONE (21:09)
[2020-12-30 22:34] LABS: Glucose,Whole Blood 125 mg/dL (75-99)
[2020-12-31 00:34] LABS: Glucose,Whole Blood 96 mg/dL (75-99)
[2020-12-31 02:18] LABS: Glucose,Whole Blood 126 mg/dL (75-99)
[2020-12-31 04:16] LABS: Glucose,Whole Blood 136 mg/dL (75-99)
[2020-12-31 04:48] LABS: Ionized Calcium 4.1 mg/dL (4.5-5.3)
[2020-12-31 04:52] LABS: HCT 24.8 % (34.0-46.0); HGB 8.5 gm/dL (11.4-16.0); MCH 30.9 pg (25.0-35.0); MCHC 34.4 g/dL (31.0-37.0); Mean Platelet Volume 11.7; Poikilocytosis Slight; RBC 2.75 m/uL (3.80-5.40); RDW 15.6 % (11.5-15.5)
[2020-12-31 04:53] LABS: Albumin 3.4 g/dL (3.5-5.0); Potassium 3.9 mmol/L (3.5-5.1); Total Bilirubin 7.6 mg/dL (0.2-1.3); Total Protein 5.3 g/dL (6.3-8.2)
[2020-12-31 05:00] LABS: Platelet Count 25 k/uL (150-450)
[2020-12-31 05:08] LABS: INR 2.3 (<1.2); Partial Thromboplastin Time 32.2 sec (22.0-30.0); Prothrombin Time 22.3 sec (9.0-12.0)
[2020-12-31 05:20] LABS: Calcium 7.9 mg/dL (8.4-10.2)
[2020-12-31 05:34] LABS: Anisocytosis (M) Present; Lymphocytes # (M) 0.58 k/uL (1.0-4.8); Metamyelocytes # (M) 0.19 k/uL (0); Metamyelocytes % 2 %; Monocytes # (M) 0.49 k/uL (0-1.0); Neutrophils # (M) 8.54 k/uL (1.3-7.7); Neutrophils % (M) 88 %; Nucleated Red Blood Cells 7 /100 WBC (0-0); Total Cells Counted 200; WBC 9.7 k/uL (3.8-10.6)
[2020-12-31 05:35] LABS: Poikilocytosis (M) Present; Polychromasia Present
[2020-12-31 06:05] LABS: Glucose,Whole Blood 127 mg/dL (75-99)
[2020-12-31] MEDS: fentaNYL (PF) 50 MCG/ML 2 ML AMP IVP PRN ×3 (06:50→14:35)
[2020-12-31] MEDS: IPRATROPIUM-ALBUTEROL 3 ML NEB INHALATION SCH ×4 (07:11→19:25)
--- NOTE | 2020-12-31 07:21 | P.PN ---
Subjective Progress Note Date: 12/31/20 55-year-old female patient with known history of aortic valve stenosis along with hypertension and hyperlipidemia and hypothyroidism and previous history of CVA involving the right eye, was having some exertional dyspnea. The patient underwent a cardiac echo and the patient was found to have an ejection fraction of 55-60% along with LVH mild to moderate MR, bicuspid severely calcified aortic valve with a valve area of 0.6 cm and a gradient of 73 along with moderate aortic regurgitation, moderate tricuspid regurgitation and hypertension. The patient also underwent cardiac catheterization and FIDEL for further evaluation. The cath showed right coronary artery stenosis in the order of 85% without any significant coronary artery disease. The transthoracic echocardiogram showed severe aortic stenosis with a valve area of 0.5 cm. Based on that, the patient was taken to the operating room and the patient underwent a aVR and the patient also underwent a single-vessel bypass surgery with SVG to RCA. Currently the patient is in intensive care unit. She is sedated with propofol which is runni ng at 25 mcg/kg per minute. She is on a mechanical ventilator on assist control mode at the rate of 12 and tidal volume of 400 and FiO2 of 50% with a PEEP of 5. The rate will be increased to 29. The blood. Showed a pH of 7.33 with a pCO2 of 50 and pO2 of 317. FiO2 has been drop down to 50% already. The peak airway pressures 24. Hemodynamically, the patient is doing okay. She has a cardiac output of-0 and an index of 3.1. She is on no inotropes for now. She is on Catapres drip at 2 mg an hour with adequate blood pressure control. She has his Southbridge-Kelli catheter in the right IJ. She has chest tubes involving the right pleural, and mediastinal. Sternum stable clean and intact for now. The chest tubes are connected and the total amount of output has been around 100 mL bloody output since the patient came in from the operating room. No evidence of any air leak at this point in time. She is producing urine output around 50 mL an hour. She is cold and the body temperature has returned back to normal 12/27/2020 the patient is being seen for follow-up. The patient was extubated yesterday without any major issues and currently she is on oxygen at 5 L with a pulse ox of 88-90%. Hemodynamically, the patient is doing well. She is off cleviprex for now.. Her most recent cardiac index is 2.7. She is producing adequate amount of urine output. The chest x-ray from today shows some small effusion the left lung base. Southbridge-Kelli catheter good location. The patient has a right-sided pleural chest tube and a mediastinal chest tube and that is no evidence of any air leak and the chest x-ray is not showing any evidence of pneumothorax. Lungs are well expanded. There are some atelectatic changes in lung bases bilaterally. Pulmonary artery pressure is low at 20/10 and the patient is going to receive some more volume today. Output from the chest tube has been a total of 200 mL since arrival from the operating room. Note that both of the chest tubes are connected at this point in time. As mentioned, no evidence of any air leak and the patient is using incentive spirometer. Surgical wound site is dry clean and intact. 12/28/2020 the patient is being seen in follow-up. There is been significant change the patient's condition as of 7 PM yesterday. Note that the patient became progressively more hypotensive and oliguric and sacral patient went into a shock state. Consider the possibility of a cardiogenic shock. Southbridge-Kelli catheter is on the been taken out. Cardiac index earlier was in the order of 2.5 prior to catheter removal. In any rate, the patient became oliguric, hypotensive, became acidotic and the lactic acid level came up to 7.6. At that point, the patient was becoming more short of breath. She was placed on a BiPAP which is still running at a pressure of 12/5 with an FiO2 of 90%. There was a component of metabolic acidosis along with lactic acidosis with a pH of 7.32 and a pCO2 of 35 and pO2 of 78. The patient was given a total of 5 ampules of bicarb and the most recent blood test shows a pH of 7.36 with a pCO2 of 40 and p O2 of 71. At this point in time, the patient is lethargic, on a BiPAP, she is on a combination of dopamine running at 3 mg/kg per minute and Primacor running at 0.2 mcg/kg per minute. Most recent blood pressure is in the order of 140. Cardiac rhythm is sinus. Heart the mid 70s. Pulse is 94% while being on a BiPAP. The patient is going to a shock liver. AST is up to 1140 and ALT is up to 662 with a bilirubin of 1.9. Most recent lactic acid level is at 8.6. Urine output was low and subsequently was improved and currently is up to 30 mL an hour. Hemoglobin from this morning was at 6.8 and the patient is receiving units of packed RBC. Her current CVP is around 17. Echocardiogram is to follow. Chest x-ray from today showing a component of pulmonary vessel congestion/interstitial edema. The patient is a mediastinal and the right pleural chest tube and output is minimal at this point and there is no evidence of any pneumothorax. Overall output from the chest is of the 400 mL since yesterday's shift. 12/29/2020, major events occurring in the patient's care since her surgery. Of concern is the hemodynamic instability, low urine output, lactic acidosis and shock state including a shock liver, and acute kidney injury. Ischemic bowel was suspected knowing that the patient's aorta was heavily calcified and there is a concern for bowel embolism and the time of surgery. In any rate, her abdomen is soft and nontender. Her lactic acid level has improved with fluid resuscitation. The patient went on a combination of dopamine and Primacor. Ejection fraction on a stat echocardiogram showed that the heart was hyperdynamic. For now, the Primacor is running at 0.2 mg/kg per minute. Dopamine is running at 6 mcg/kg per minute. The patient has received fluid boluses. Urine output is no order of 5-10 mL an hour. Lasix drip was started at 15 mg an hour currently and urine output remains low. The patient is having short runs of atrial flutter. In fact this morning at time of my evaluation, she went to a flutter with rapid ventricular response at a heart rate of 135. She remains on BiPAP at a pressure of 12/5 cm of water with an FiO2 of 60%. Chest x-ray shows pulmonary edema. There is a right pleural and mediastinal chest tube. No evidence of an air leak. No evidence of any pneumothorax. Output from the chest tubes have been in the order of 20 mL an hour. She is awake. She is complaining of pain in her chest soreness and the surgical wound site. Her labs are still pending from this morning. The labs from yesterday showed shock liver, elevation in AST and ALT and the subsequent labs from earlier this morning are still pending for now. Serum bicarb is 24 from yesterday. Creatinine is up to 2.1. AST was 11,124 and ALT is 4387. CBC is also showing a hemoglobin of 6 with a platelet count of 26. No signs of any acute bleeding at this point in time. 27 2020, the patient remains on a BiPAP at a pressure of 12/5 cm of water with an FiO2 of 50%. She is quite comfortable, degenerative tidal volumes around 480 with a respiratory rate of 20 and minute ventilation of 9.5 L per minute. The chest x-ray showing postsurgical changes. Some interstitial infiltrates bilaterally and prominent vascular markings. No signs of any massive fluid ov erload. Left lower lobe is atelectatic and there may be some small effusions. The patient has a mediastinal chest tube and a right pleural chest tube. Atrial. Was seen. No evidence of any pneumothorax. The right IJ Cordis is still in place. Output from the chest tubes combined has been in the order of 4 50 mL over the past 12 hours. Note that the patient's blood work has shown development of significant thrombocytopenia and anemia. The patient was transfused.. The patient was given multiple transfusions yesterday and the patient a total of 2 units of packed RBC, platelet transfusion, fresh frozen plasma and most recent hemoglobin from this morning is at 9 with a platelet count of 24 after having a platelet count as high as 46. As such, another platelet transfusion was ordered for her. No concerns of any acute bleeding. She has developed some petechiae in her upper chest area. Surgical wound site is dry clean and intact. The catheter site including the femoral venous miley lysis catheter site is dry clean and intact and there is no formation of any hematoma.. Coagulation profile is abnormal. The INR today is at 2.6 with a PT of 25 and a PTT of 30.2. The patient was also given vitamin K earlier. The patient was given calcium gluconate. D-dimer is at 9.6. This is probably related to her shock liver versus a mild component of DIC. Her syndrome is felt to be unlikely at this point in time. Antibodies were sent. Hemodynamically, the patient remains in atrial fibrillation. She is on IV fluids running at 50 mL an hour of D5 half-normal saline. Agustín-Synephrine infusion is running at 0.4 mcg/kg per minute. Urine output is almost absent. The patient's creatinine is down to 2.1 today and she received a session of slow high-efficiency dialysis yesterday during which she remains quite hemodynamically stable and she was able to tolerate without any major difficulties. Digoxin level came at 2.9 after being loaded with a total of 1 mg of digoxin yesterday. Liver function tests are slightly improved on today's evaluation. AST is down to 8000, ALT is down to 2006 100, alkaline phosphatase is 74. Her ionized calcium today was for which is obviously low. Serum albumin is at 3.8 with a total protein of 5.5. She is moving all 4 extremities. Abdomen is soft. She is awake. She is conscious. She is passing flatus. She has developed some edema in the upper and lower extremities bilaterally. Dialysis is to follow today. 28 2020 the patient is being seen for a follow-up. Awake and alert, lethargic. Response to the moving all 4 extremities without any limitation. She remains on BiPAP at a pressure of 12/5 with an FiO2 of 50%. Generating a tidal volumes between 350 and 400 with a respiratory rate in the mid 20s. Abdomen is ventilation is around 8 L per minute. The patient has the chest tube still in place both the right pleural and mediastinal chest tube. The output has been 2 40 mL overnight over the past 12 hours and output is still bloody. She made minimal amount of urine output probably in the order of 50 mL all night. Hemod ynamically stable. Off Agustín-Synephrine. She converted into sinus rhythm with a first-degree AV block. Chest x-ray showing some mild four-vessel congestion and all of the chest tubes are in place. Hemoglobin is at 8.5 with a platelet count of 25 and a coagulation profile shows an INR of 2.3 with a PT of 22.3 and a PTT of 32, lactic acid level is down to 1.8, BUN is 41 with a creatinine of 2.5 and a sodium of 136 with a potassium of 3.9. Glucose is 125. Shock liver is gradually improving and the AST is down to 4112 and ALT is down to 2017. She underwent hemodialysis yesterday without any major complications. He dialyzes catheter is still present in her right groin. No signs of any bleeding. No other issues for now. She is arousable. She follows commands and answers questions appropriately. No other significant events overnight. Note that her follow-up digoxin level was down to 2.1. She got transfused with platelets yesterday. Objective - Vital Signs Vital signs: Vital Signs Temp 98.8 F 12/31/20 04:00 Pulse 88 12/31/20 07:00 Resp 23 12/31/20 07:00 BP 153/79 12/31/20 07:00 Pulse Ox 96 12/31/20 07:00 Intake & Output 12/30/20 12/31/20 12/31/20 18:59 06:59 18:59 Intake Total 3283.972 706 46 Output Total 275 320 35 Balance 3008.972 386 11 Weight 68.3 kg Intake: IV 618 706 46 Calcium gluconate 100 D5.9 340 440 40 Potassium Chloride 100 Zosyn 100 100 pressure bags 78 66 6 Intake, IV Titration 67.972 Amount Phenylephrine 40 mg In 67.972 Sodium Chloride 0.9% 250 ml @ 0.5 MCG/KG/MIN 13. 468 mls/hr IV .[id number] [facility] Rx#:[id number] Blood Product 598 Platelet Pheresis Pas 348 Psoralen Unit [id number] Platelet Pheresis Pas-C 250 Unit [id number] Hemodialysis 1999 Output: Chest Tube Drainage 270 310 30 Right Pleural/Mediastinal 270 310 30 Urine 5 10 5 Other: Voiding Method Indwelling Catheter Indwelling Catheter # Bowel Movements 1 1 ABP, PAP, CO, CI - Last Documented Arterial Blood Pressure 159/57 Pulmonary Artery Pressure 12/5 Cardiac Output 4.2 Cardiac Index 2.6 - Exam Gen. appearance she is calm and currently on a BiPAP at a pressure of 12/5 with an FiO2 of 50%. She is quite comfortable and synchronous with the machine. Head exam was generally normal. There was no scleral icterus or corneal arcus. Mucous membranes were moist. Neck was supple and without jugular venous distension, thyromegaly, or carotid bruits. Carotids were easily palpable bilaterally. There was no adenopathy. The patient has a right IJ Southbridge-Kelli catheter, has been removed and the patient currently has a Cordis in place Lungs sounds are equal and symmetrical breath sounds bilaterally and the patient is a right pleural and mediastinal chest tube Cardiac exam revealed the PMI to be normally situated and sized. The rhythm was regular and no extrasystoles were noted during several minutes of auscultation. The first and second heart sounds were normal and physiologic splitting of the second heart sound was noted. There were no murmurs, rubs, clicks, or gallops. Abdominal exam revealed normal bowel sounds. The abdomen was soft, non-tender, and without masses, organomegaly, or appreciable enlargement of the abdominal aorta. Examination of the extremities revealed easily palpable radial, femoral and pedal pulses. There was no cyanosis, clubbing and there is increased edema in all 4 extremities. Catheters are all in place. She also has a right femoral dialysis catheter in the femoral vein. Examination of the skin revealed no evidence of significant rashes, suspicious appearing nevi or other concerning lesions. Neurologic , no focal neurological deficit and the patient is awake and alert 3 - Labs CBC & Chem 7: 12/31/20 04:10 12/31/20 04:10 Labs: Abnormal Lab Results - Last 24 Hours (Table) 12/28/20 12/30/20 12/30/20 Range/Units 04:25 08:09 10:08 WBC (3.8-10.6) k/uL RBC (3.80-5.40) m/uL Hgb (11.4-16.0) gm/dL Hct (34.0-46.0) % RDW (11.5-15.5) % Plt Count (150-450) k/uL Neutrophils # (1.3-7.7) k/uL Neutrophils # (Manual) (1.3-7.7) k/uL Lymphocytes # (1.0-4.8) k/uL Lymphocytes # (Manual) (1.0-4.8) k/uL Monocytes # (0-1.0) k/uL Metamyelocytes # (Man) (0) k/uL Nucleated RBCs (0-0) /100 WBC PT (9.0-12.0) sec INR (<1.2) APTT (22.0-30.0) sec ABG Lactic Acid (0.5-1.6) mmol/L Sodium (137-145) mmol/L BUN (7-17) mg/dL Creatinine (0.52-1.04) mg/dL Glucose (74-99) mg/dL POC Glucose (mg/dL) 138 H 123 H (75-99) mg/dL Calcium (8.4-10.2) mg/dL Ionized Calcium Beatrice (4.5-5.3) mg/dL Total Bilirubin (0.2-1.3) mg/dL AST (14-36) U/L ALT (4-34) U/L Total Protein (6.3-8.2) g/dL Albumin (3.5-5.0) g/dL Crossmatch See Detail 12/30/20 12/30/20 12/30/20 Range/Units 11:49 13:57 15:52 WBC (3.8-10.6) k/uL RBC (3.80-5.40) m/uL Hgb (11.4-16.0) gm/dL Hct (34.0-46.0) % RDW (11.5-15.5) % Plt Count (150-450) k/uL Neutrophils # (1.3-7.7) k/uL Neutrophils # (Manual) (1.3-7.7) k/uL Lymphocytes # (1.0-4.8) k/uL Lymphocytes # (Manual) (1.0-4.8) k/uL Monocytes # (0-1.0) k/uL Metamyelocytes # (Man) (0) k/uL Nucleated RBCs (0-0) /100 WBC PT (9.0-12.0) sec INR (<1.2) APTT (22.0-30.0) sec ABG Lactic Acid (0.5-1.6) mmol/L Sodium (137-145) mmol/L BUN (7-17) mg/dL Creatinine (0.52-1.04) mg/dL Glucose (74-99) mg/dL POC Glucose (mg/dL) 113 H 102 H 106 H (75-99) mg/dL Calcium (8.4-10.2) mg/dL Ionized Calcium Beatrice (4.5-5.3) mg/dL Total Bilirubin (0.2-1.3) mg/dL AST (14-36) U/L ALT (4-34) U/L Total Protein (6.3-8.2) g/dL Albumin (3.5-5.0) g/dL Crossmatch 0312/30/20 12/30/20 Range/Units 18:25 19:00 19:00 WBC 10.8 H (3.8-10.6) k/uL RBC 2.76 L (3.80-5.40) m/uL Hgb 9.1 L (11.4-16.0) gm/dL Hct 24.6 L (34.0-46.0) % RDW (11.5-15.5) % Plt Count 30 L (150-450) k/uL Neutrophils # 8.6 H (1.3-7.7) k/uL Neutrophils # (Manual) (1.3-7.7) k/uL Lymphocytes # 0.8 L (1.0-4.8) k/uL Lymphocytes # (Manual) (1.0-4.8) k/uL Monocytes # 1.1 H (0-1.0) k/uL Metamyelocytes # (Man) (0) k/uL Nucleated RBCs (0-0) /100 WBC PT 22.4 H (9.0-12.0) sec INR 2.3 H (<1.2) APTT 31.9 H (22.0-30.0) sec ABG Lactic Acid (0.5-1.6) mmol/L Sodium (137-145) mmol/L BUN (7-17) mg/dL Creatinine (0.52-1.04) mg/dL Glucose (74-99) mg/dL POC Glucose (mg/dL) 112 H (75-99) mg/dL Calcium (8.4-10.2) mg/dL Ionized Calcium Beatrice (4.5-5.3) mg/dL Total Bilirubin (0.2-1.3) mg/dL AST (14-36) U/L ALT (4-34) U/L Total Protein (6.3-8.2) g/dL Albumin (3.5-5.0) g/dL Crossmatch 12/30/20 12/30/20 12/30/20 Range/Units 19:00 20:16 22:33 WBC (3.8-10.6) k/uL RBC (3.80-5.40) m/uL Hgb (11.4-16.0) gm/dL Hct (34.0-46.0) % RDW (11.5-15.5) % Plt Count (150-450) k/uL Neutrophils # (1.3-7.7) k/uL Neutrophils # (Manual) (1.3-7.7) k/uL Lymphocytes # (1.0-4.8) k/uL Lymphocytes # (Manual) (1.0-4.8) k/uL Monocytes # (0-1.0) k/uL Metamyelocytes # (Man) (0) k/uL Nucleated RBCs (0-0) /100 WBC PT (9.0-12.0) sec INR (<1.2) APTT (22.0-30.0) sec ABG Lactic Acid (0.5-1.6) mmol/L Sodium 135 L (137-145) mmol/L BUN 28 H (7-17) mg/dL Creatinine 1.98 H (0.52-1.04) mg/dL Glucose 112 H (74-99) mg/dL POC Glucose (mg/dL) 119 H 125 H (75-99) mg/dL Calcium 8.1 L (8.4-10.2) mg/dL Ionized Calcium Beatrice (4.5-5.3) mg/dL Total Bilirubin 6.7 H (0.2-1.3) mg/dL AST 5564 H (14-36) U/L ALT 2439 H (4-34) U/L Total Protein 5.5 L (6.3-8.2) g/dL Albumin (3.5-5.0) g/dL Crossmatch 12/31/20 12/31/20 12/31/20 Range/Units 02:15 04:10 04:10 WBC (3.8-10.6) k/uL RBC 2.75 L (3.80-5.40) m/uL Hgb 8.5 L (11.4-16.0) gm/dL Hct 24.8 L (34.0-46.0) % RDW 15.6 H (11.5-15.5) % Plt Count 25 L (150-450) k/uL Neutrophils # (1.3-7.7) k/uL Neutrophils # (Manual) 8.54 H (1.3-7.7) k/uL Lymphocytes # (1.0-4.8) k/uL Lymphocytes # (Manual) 0.58 L (1.0-4.8) k/uL Monocytes # (0-1.0) k/uL Metamyelocytes # (Man) 0.19 H (0) k/uL Nucleated RBCs 7 H (0-0) /100 WBC PT 22.3 H (9.0-12.0) sec INR 2.3 H (<1.2) APTT 32.2 H (22.0-30.0) sec ABG Lactic Acid (0.5-1.6) mmol/L Sodium (137-145) mmol/L BUN (7-17) mg/dL Creatinine (0.52-1.04) mg/dL Glucose (74-99) mg/dL POC Glucose (mg/dL) 126 H (75-99) mg/dL Calcium (8.4-10.2) mg/dL Ionized Calcium Beatrice (4.5-5.3) mg/dL Total Bilirubin (0.2-1.3) mg/dL AST (14-36) U/L ALT (4-34) U/L Total Protein (6.3-8.2) g/dL Albumin (3.5-5.0) g/dL Crossmatch 12/31/20 12/31/20 12/31/20 Range/Units 04:10 04:10 04:11 WBC (3.8-10.6) k/uL RBC (3.80-5.40) m/uL Hgb (11.4-16.0) gm/dL Hct (34.0-46.0) % RDW (11.5-15.5) % Plt Count (150-450) k/uL Neutrophils # (1.3-7.7) k/uL Neutrophils # (Manual) (1.3-7.7) k/uL Lymphocytes # (1.0-4.8) k/uL Lymphocytes # (Manual) (1.0-4.8) k/uL Monocytes # (0-1.0) k/uL Metamyelocytes # (Man) (0) k/uL Nucleated RBCs (0-0) /100 WBC PT (9.0-12.0) sec INR (<1.2) APTT (22.0-30.0) sec ABG Lactic Acid 1.8 H (0.5-1.6) mmol/L Sodium 136 L (137-145) mmol/L BUN 41 H (7-17) mg/dL Creatinine 2.58 H (0.52-1.04) mg/dL Glucose 125 H (74-99) mg/dL POC Glucose (mg/dL) 136 H (75-99) mg/dL Calcium 7.9 L (8.4-10.2) mg/dL Ionized Calcium Beatrice 4.1 L (4.5-5.3) mg/dL Total Bilirubin 7.6 H (0.2-1.3) mg/dL AST 4112 H (14-36) U/L ALT 2017 H (4-34) U/L Total Protein 5.3 L (6.3-8.2) g/dL Albumin 3.4 L (3.5-5.0) g/dL Crossmatch 12/31/20 Range/Units 06:04 WBC (3.8-10.6) k/uL RBC (3.80-5.40) m/uL Hgb (11.4-16.0) gm/dL Hct (34.0-46.0) % RDW (11.5-15.5) % Plt Count (150-450) k/uL Neutrophils # (1.3-7.7) k/uL Neutrophils # (Manual) (1.3-7.7) k/uL Lymphocytes # (1.0-4.8) k/uL Lymphocytes # (Manual) (1.0-4.8) k/uL Monocytes # (0-1.0) k/uL Metamyelocytes # (Man) (0) k/uL Nucleated RBCs (0-0) /100 WBC PT (9.0-12.0) sec INR (<1.2) APTT (22.0-30.0) sec ABG Lactic Acid (0.5-1.6) mmol/L Sodium (137-145) mmol/L BUN (7-17) mg/dL Creatinine (0.52-1.04) mg/dL Glucose (74-99) mg/dL POC Glucose (mg/dL) 127 H (75-99) mg/dL Calcium (8.4-10.2) mg/dL Ionized Calcium Beatrice (4.5-5.3) mg/dL Total Bilirubin (0.2-1.3) mg/dL AST (14-36) U/L ALT (4-34) U/L Total Protein (6.3-8.2) g/dL Albumin (3.5-5.0) g/dL Crossmatch Microbiology - Last 24 Hours (Table) 12/28/20 15:19 Blood Culture - Preliminary Blood No Growth after 48 hours Assessment and Plan Plan: 1 aortic valve replacement and single-vessel bypass surgery with SVG to RCA and a left atrial clipping and the patient is currently postop day #5. The patient went into shock postop. The patient had a hyperdynamic LV. Exact cause for this shock was not clear. Consider possibility of bowel ischemia. The patient did encounter shock liver, acute kidney injury and significant hemodynamic instability and her course was completed by respiratory failure, developed what of atrial fibrillation, severe lactic acidosis, and major coagulopathy with DIC. Things have stabilized since and the patient then was resuscitated. Currently, her shock liver is improving, and she is on dialysis and she remains on BiPAP for respiratory support. The metabolic acidosis improved. Coagulation profile is also improving. Rest x-ray from today was noted. Blood work was noted. 2 post thoracotomy, currently on BiPAP for respiratory support. Chest x-ray showing interstitial edema. All of the chest tubes are in place and there is no evidence of any air leak or pneumothorax. The output from the chest tubes has been noted and the patient has produced approximately 2 40 mL of bloody effusion for the chest tubes over the past 12 hours. No evidence of a pneumothorax. Lungs are well expanded. There is increased interstitial edema and the patient will benefit from dialysis. 3 severe lactic acidosis, considered the possibility of a cardiogenic shock lactic acid level is improving , the last lactic acid level is normalized 4 shock liver secondary to above, the patient had developed abnormal LFTs, coagulopathy and thrombocytopenia along with a component of DIC, blood products have been given and the patient received a total of 2 units of packed RBC, making a total of 4 since her surgery in addition to fresh frozen plasma and platelet transfusion 3 times in addition the patient received an additional 2 units of platelet transfusion yesterday. Most recent platelet count is 25 and the patient is not having any signs of bleeding. Hit antibody is still pending for now. Presentation is more typical of DIC. 5 anemia with acute drop in hemoglobin/thrombocytopenia, more related to above and the patient got transfused blood products. Calcium was also given. the most recent hemoglobin is currently at 8.5. No signs of any acute bleeding 6 acute kidney injury secondary to shock-induced ATN. There has been initiated yesterday. Dialysis catheter is present in the femoral vein. patient has received already 2 sessions of hemodialysis. The first session is planned for today. 7 coagulopathy, likely secondary to shock liver/DIC I doubt Jimbo syndrome 8 hyperlipidemia 9 hypothyroidism 10 degenerative arthritis with chronic back and hip pain 11 history of CVA 12 episodes of atrial flutter with rapid ventricular response, currently she is in normal sinus rhythm. Digoxin level was up to 2.9. Improving. She is off the Agustín-Synephrine for now. She does have an underlying first-degree AV block. Plan Continue BiPAP / with an FiO2 of 50%, based on my evaluation, I don't think the patient will come off the BiPAP easily today unless she is dialyzed the volume status is further optimized. For that reason, I'm recommending another session of hemodialysis today. She shows signs of volume overload and edema in all 4 extremities. There is also evidence of interstitial edema. Keep nothing by mouth No feeding for today Chest x-ray from today was noted There are some signs of ongoing fluid overload both in the chest x-ray and on examination with the patient's edematous in all 4 extremities and the patient will require hemodialysis again today and her last hemodialysis session was yesterday. Transfuse total of 4 units of packed RBC along with platelet transfusion 5 FFP 2 hour monitoring the hematologic profile. Monitor CVP which is currently at 15-17 improved since yesterday digoxin level has improved down to 2.1 IV fluids at to be reduced to 40 mL an hour Monitor lactic acid level has improved and the LFTs have also improved Keep chest tubes in place We'll continue to follow. Keep in ICU for another 24 hours. Patient is critical. Discussed the case with cardiothoracic surgery. We'll continue to follow. Critically care evaluation more than 30 minutes. Time with Patient: Greater than 30
--- NOTE | 2020-12-31 07:27 | XR ---
EXAMINATION TYPE: XR chest 1V portable DATE OF EXAM: 12/31/2020 HISTORY: Post Op CABG COMPARISON: 12/30/2020 TECHNIQUE: Single view of the chest is submitted. FINDINGS: Endotracheal tube, NG tube, right IJ sheath, mediastinal drains and chest tubes are appropriately isabel maximus. Post operative changes of CABG. No sizeable pneumothorax. Scattered Pleural-parenchymal opacities may reflect atelectasis. The heart is not enlarged. IMPRESSION: 1. Post operative changes of CABG.
[2020-12-31] MEDS: PHENYLEPHRINE 40 MG in SODIUM CHLORIDE 0.9% 250 ML IV SCH (07:44)
[2020-12-31] MEDS: DEXTROSE 5%-0.9% NACL 1,000 ML IV SCH (07:44)
--- NOTE | 2020-12-31 07:49 | P.PN ---
Subjective Progress Note Date: 12/31/20 Principal diagnosis: Severe bicuspid aortic valve stenosis, coronary artery disease. 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, right internal carotid artery stenosis 50-79% per Doppler, previous tobacco dependence with moderate obstructive lung disease and preoperative FEV1 56% of predicted, preoperative elevation of AST and ALT, degenerative arthritis with chronic back pain, and fam chato history of colon cancer POD #5 aortic valve replacement with #21 mm Jackson Inspiris bioprosthetic aortic valve, coronary artery bypass grafting 1 with reverse saphenous vein graft off the aorta to the right coronary artery, clip ligation of the left atrial appendage with a 35 mm AtriClip, intraoperative transesophageal echocardiogram. Postoperative acute blood loss anemia, expected secondary to hemodilution and cardiopulmonary bypass pump, status post PRBC transfusion Hypotension requiring pressor use, currently off pressors Acute kidney injury secondary to hypoperfusion requiring initiation of dialysis Shock liver secondary to hypoperfusion, improving Lactic acidosis secondary to hypoperfusion, improving Hypoxic respiratory failure requiring BiPAP Thrombocytopenia A. fib with RVR, known common occurrence after open heart surgery, currently sinus rhythm Coagulopathy with DIC The patient was seen and examined this morning the intensive care unit. She does complain of post surgical pain which is relieved with IV fentanyl, some shortness of breath. She remains on BiPAP with good oxygenation on 50% FiO2. Her blood pressure stable off pressors since yesterday. Remains in sinus rhythm with first-degree AV block. Blood cultures remain pending but negative so far. Pro-calcitonin 0.26, remains afebrile. Continues on IV Zosyn. WBC 9.7, hemoglobin 8.5, platelet count 25,000, BUN 41, creatinine 2.58, INR 2.3, AST 4112, ALT 2017, and most recent lactic acid 1.8. She received 2 platelets yesterday with platelet count 30,000 yesterday evening. No evidence of active bleeding. She continues to have little to no urine output. She received dialysis yesterday for the second time. Nephrology and hematology on board, continue to monitor. She remains mostly comfortable although her back starting to hurt her from lying in bed, would like to be more mobile. Her abdomen remains soft and nontender, she has had a bowel movement. Family continues to be updated daily Objective - Vital Signs Vital signs: Vital Signs Temp 98.8 F 12/31/20 04:00 Pulse 91 12/31/20 07:25 Resp 20 12/31/20 07:25 BP 153/79 12/31/20 07:00 Pulse Ox 97 12/31/20 07:11 Intake & Output 12/30/20 12/31/20 12/31/20 18:59 06:59 18:59 Intake Total 3283.972 706 46 Output Total 275 320 35 Balance 3008.972 386 11 Weight 68.3 kg Intake: IV 618 706 46 Calcium gluconate 100 D5.9 340 440 40 Potassium Chloride 100 Zosyn 100 100 pressure bags 78 66 6 Intake, IV Titration 67.972 Amount Phenylephrine 40 mg In 67.972 Sodium Chloride 0.9% 250 ml @ 0.5 MCG/KG/MIN 13. 468 mls/hr IV .[id number] [facility] Rx#:[id number] Blood Product 598 Platelet Pheresis Pas 348 Psoralen Unit [id number] Platelet Pheresis Pas-C 250 Unit [id number] Hemodialysis 1999 Output: Chest Tube Drainage 270 310 30 Right Pleural/Mediastinal 270 310 30 Urine 5 10 5 Other: Voiding Method Indwelling Catheter Indwelling Catheter # Bowel Movements 1 1 ABP, PAP, CO, CI - Last Documented Arterial Blood Pressure 159/57 Pulmonary Artery Pressure 12/5 Cardiac Output 4.2 Cardiac Index 2.6 - Exam CONSTITUTIONAL: Appears comfortable, cooperative RESPIRATORY: Lungs sounds diminished bilaterally. Respirations even, nonlabored. Currently on BiPAP with oxygen saturation mid 90s, settings 50% FiO2, 12/5. Strong nonproductive cough. CARDIOVASCULAR: S1, S2 present. Regular rate and rhythm, normal sinus rhythm with first-degree AV block on telemetry, heart rate in the 80s. Sternum stable. Palpable peripheral pulses bilaterally. Generalized edema present. No calf pain or tenderness noted. Heart hugger in place. Antiembolism stockings, SCDs present. GASTROINTESTINAL: Abdomen soft, nontender, nondistended. Active bowel sounds present 4 quadrants. Positive bowel movement. GENITOURINARY: Acevedo present draining minimal concentrated urine. Output overnight 15 mL total INTEGUMENTARY: Skin is warm and dry. Anterior chest incision well approximated and covered with dry intact dressing. EVH site well approximated without redness or drainage. Few scattered areas of petechiae, ecchymosis to the right thigh which is expected, no increase in size NEUROLOGIC: Cranial nerves II through XII intact MUSKULOSKELETAL: Able to move all extremities, strength equal bilaterally but weak PSYCHIATRIC: Alert and oriented to person place and time, appropriate affect, intact judgment and insight INVASIVE LINES AND TUBES: Mediastinal/right pleural chest tubes present and connected to wall suction, no air leaks present. Mediastinal/right tube with 200 mL serosanguineous drainage overnight, 750 mL in the last 24 hours. A/V epicardial pacemaker wires present, connected to generator, VVI mode with backup rate 50 bpm. Right internal jugular Cordis, right radial arterial line present. - Labs CBC & Chem 7: 12/31/20 04:10 12/31/20 04:10 Labs: Abnormal Lab Results - Last 24 Hours (Table) 12/28/20 12/30/20 12/30/20 Range/Units 04:25 08:09 10:08 WBC (3.8-10.6) k/uL RBC (3.80-5.40) m/uL Hgb (11.4-16.0) gm/dL Hct (34.0-46.0) % RDW (11.5-15.5) % Plt Count (150-450) k/uL Neutrophils # (1.3-7.7) k/uL Neutrophils # (Manual) (1.3-7.7) k/uL Lymphocytes # (1.0-4.8) k/uL Lymphocytes # (Manual) (1.0-4.8) k/uL Monocytes # (0-1.0) k/uL Metamyelocytes # (Man) (0) k/uL Nucleated RBCs (0-0) /100 WBC PT (9.0-12.0) sec INR (<1.2) APTT (22.0-30.0) sec ABG Lactic Acid (0.5-1.6) mmol/L Sodium (137-145) mmol/L BUN (7-17) mg/dL Creatinine (0.52-1.04) mg/dL Glucose (74-99) mg/dL POC Glucose (mg/dL) 138 H 123 H (75-99) mg/dL Calcium (8.4-10.2) mg/dL Ionized Calcium Beatrice (4.5-5.3) mg/dL Total Bilirubin (0.2-1.3) mg/dL AST (14-36) U/L ALT (4-34) U/L Total Protein (6.3-8.2) g/dL Albumin (3.5-5.0) g/dL Crossmatch See Detail 12/30/20 12/30/20 12/30/20 Range/Units 11:49 13:57 15:52 WBC (3.8-10.6) k/uL RBC (3.80-5.40) m/uL Hgb (11.4-16.0) gm/dL Hct (34.0-46.0) % RDW (11.5-15.5) % Plt Count (150-450) k/uL Neutrophils # (1.3-7.7) k/uL Neutrophils # (Manual) (1.3-7.7) k/uL Lymphocytes # (1.0-4.8) k/uL Lymphocytes # (Manual) (1.0-4.8) k/uL Monocytes # (0-1.0) k/uL Metamyelocytes # (Man) (0) k/uL Nucleated RBCs (0-0) /100 WBC PT (9.0-12.0) sec INR (<1.2) APTT (22.0-30.0) sec ABG Lactic Acid (0.5-1.6) mmol/L Sodium (137-145) mmol/L BUN (7-17) mg/dL Creatinine (0.52-1.04) mg/dL Glucose (74-99) mg/dL POC Glucose (mg/dL) 113 H 102 H 106 H (75-99) mg/dL Calcium (8.4-10.2) mg/dL Ionized Calcium Beatrice (4.5-5.3) mg/dL Total Bilirubin (0.2-1.3) mg/dL AST (14-36) U/L ALT (4-34) U/L Total Protein (6.3-8.2) g/dL Albumin (3.5-5.0) g/dL Crossmatch 12/30/20 12/30/20 12/30/20 Range/Units 18:25 19:00 19:00 WBC 10.8 H (3.8-10.6) k/uL RBC 2.76 L (3.80-5.40) m/uL Hgb 9.1 L (11.4-16.0) gm/dL Hct 24.6 L (34.0-46.0) % RDW (11.5-15.5) % Plt Count 30 L (150-450) k/uL Neutrophils # 8.6 H (1.3-7.7) k/uL Neutrophils # (Manual) (1.3-7.7) k/uL Lymphocytes # 0.8 L (1.0-4.8) k/uL Lymphocytes # (Manual) (1.0-4.8) k/uL Monocytes # 1.1 H (0-1.0) k/uL Metamyelocytes # (Man) (0) k/uL Nucleated RBCs (0-0) /100 WBC PT 22.4 H (9.0-12.0) sec INR 2.3 H (<1.2) APTT 31.9 H (22.0-30.0) sec ABG Lactic Acid (0.5-1.6) mmol/L Sodium (137-145) mmol/L BUN (7-17) mg/dL Creatinine (0.52-1.04) mg/dL Glucose (74-99) mg/dL POC Glucose (mg/dL) 112 H (75-99) mg/dL Calcium (8.4-10.2) mg/dL Ionized Calcium Beatrice (4.5-5.3) mg/dL Total Bilirubin (0.2-1.3) mg/dL AST (14-36) U/L ALT (4-34) U/L Total Protein (6.3-8.2) g/dL Albumin (3.5-5.0) g/dL Crossmatch 12/30/20 12/30/20 12/30/20 Range/Units 19:00 20:16 22:33 WBC (3.8-10.6) k/uL RBC (3.80-5.40) m/uL Hgb (11.4-16.0) gm/dL Hct (34.0-46.0) % RDW (11.5-15.5) % Plt Count (150-450) k/uL Neutrophils # (1.3-7.7) k/uL Neutrophils # (Manual) (1.3-7.7) k/uL Lymphocytes # (1.0-4.8) k/uL Lymphocytes # (Manual) (1.0-4.8) k/uL Monocytes # (0-1.0) k/uL Metamyelocytes # (Man) (0) k/uL Nucleated RBCs (0-0) /100 WBC PT (9.0-12.0) sec INR (<1.2) APTT (22.0-30.0) sec ABG Lactic Acid (0.5-1.6) mmol/L Sodium 135 L (137-145) mmol/L BUN 28 H (7-17) mg/dL Creatinine 1.98 H (0.52-1.04) mg/dL Glucose 112 H (74-99) mg/dL POC Glucose (mg/dL) 119 H 125 H (75-99) mg/dL Calcium 8.1 L (8.4-10.2) mg/dL Ionized Calcium Beatrice (4.5-5.3) mg/dL Total Bilirubin 6.7 H (0.2-1.3) mg/dL AST 5564 H (14-36) U/L ALT 2439 H (4-34) U/L Total Protein 5.5 L (6.3-8.2) g/dL Albumin (3.5-5.0) g/dL Crossmatch 12/31/20 12/31/20 12/31/20 Range/Units 02:15 04:10 04:10 WBC (3.8-10.6) k/uL RBC 2.75 L (3.80-5.40) m/uL Hgb 8.5 L (11.4-16.0) gm/dL Hct 24.8 L (34.0-46.0) % RDW 15.6 H (11.5-15.5) % Plt Count 25 L (150-450) k/uL Neutrophils # (1.3-7.7) k/uL Neutrophils # (Manual) 8.54 H (1.3-7.7) k/uL Lymphocytes # (1.0-4.8) k/uL Lymphocytes # (Manual) 0.58 L (1.0-4.8) k/uL Monocytes # (0-1.0) k/uL Metamyelocytes # (Man) 0.19 H (0) k/uL Nucleated RBCs 7 H (0-0) /100 WBC PT 22.3 H (9.0-12.0) sec INR 2.3 H (<1.2) APTT 32.2 H (22.0-30.0) sec ABG Lactic Acid (0.5-1.6) mmol/L Sodium (137-145) mmol/L BUN (7-17) mg/dL Creatinine (0.52-1.04) mg/dL Glucose (74-99) mg/dL POC Glucose (mg/dL) 126 H (75-99) mg/dL Calcium (8.4-10.2) mg/dL Ionized Calcium Beatrice (4.5-5.3) mg/dL Total Bilirubin (0.2-1.3) mg/dL AST (14-36) U/L ALT (4-34) U/L Total Protein (6.3-8.2) g/dL Albumin (3.5-5.0) g/dL Crossmatch 12/31/20 12/31/20 12/31/20 Range/Units 04:10 04:10 04:11 WBC (3.8-10.6) k/uL RBC (3.80-5.40) m/uL Hgb (11.4-16.0) gm/dL Hct (34.0-46.0) % RDW (11.5-15.5) % Plt Count (150-450) k/uL Neutrophils # (1.3-7.7) k/uL Neutrophils # (Manual) (1.3-7.7) k/uL Lymphocytes # (1.0-4.8) k/uL Lymphocytes # (Manual) (1.0-4.8) k/uL Monocytes # (0-1.0) k/uL Metamyelocytes # (Man) (0) k/uL Nucleated RBCs (0-0) /100 WBC PT (9.0-12.0) sec INR (<1.2) APTT (22.0-30.0) sec ABG Lactic Acid 1.8 H (0.5-1.6) mmol/L Sodium 136 L (137-145) mmol/L BUN 41 H (7-17) mg/dL Creatinine 2.58 H (0.52-1.04) mg/dL Glucose 125 H (74-99) mg/dL POC Glucose (mg/dL) 136 H (75-99) mg/dL Calcium 7.9 L (8.4-10.2) mg/dL Ionized Calcium Beatrice 4.1 L (4.5-5.3) mg/dL Total Bilirubin 7.6 H (0.2-1.3) mg/dL AST 4112 H (14-36) U/L ALT 2017 H (4-34) U/L Total Protein 5.3 L (6.3-8.2) g/dL Albumin 3.4 L (3.5-5.0) g/dL Crossmatch 12/31/20 Range/Units 06:04 WBC (3.8-10.6) k/uL RBC (3.80-5.40) m/uL Hgb (11.4-16.0) gm/dL Hct (34.0-46.0) % RDW (11.5-15.5) % Plt Count (150-450) k/uL Neutrophils # (1.3-7.7) k/uL Neutrophils # (Manual) (1.3-7.7) k/uL Lymphocytes # (1.0-4.8) k/uL Lymphocytes # (Manual) (1.0-4.8) k/uL Monocytes # (0-1.0) k/uL Metamyelocytes # (Man) (0) k/uL Nucleated RBCs (0-0) /100 WBC PT (9.0-12.0) sec INR (<1.2) APTT (22.0-30.0) sec ABG Lactic Acid (0.5-1.6) mmol/L Sodium (137-145) mmol/L BUN (7-17) mg/dL Creatinine (0.52-1.04) mg/dL Glucose (74-99) mg/dL POC Glucose (mg/dL) 127 H (75-99) mg/dL Calcium (8.4-10.2) mg/dL Ionized Calcium Beatrice (4.5-5.3) mg/dL Total Bilirubin (0.2-1.3) mg/dL AST (14-36) U/L ALT (4-34) U/L Total Protein (6.3-8.2) g/dL Albumin (3.5-5.0) g/dL Crossmatch Microbiology - Last 24 Hours (Table) 12/28/20 15:19 Blood Culture - Preliminary Blood No Growth after 48 hours - Imaging and Cardiology Chest x-ray: report reviewed, image reviewed Assessment and Plan Assessment: 1. Severe bicuspid aortic valve stenosis, status post aortic valve replacement with #21 mm Jakcson Inspiris bioprosthetic aortic valve 2. Coronary artery disease, status post single vessel CABG 3. History of hypertension, currently hypotensive on Agustín-Synephrine 4. Hyperlipidemia, treated, cholesterol 111, LDL 38 5. Hypothyroid 6. 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 Right internal carotid artery stenosis 50-79% per Doppler 8. Previous tobacco dependence with moderate obstructive lung disease and preoperative FEV1 56% of predicted 9. Preoperative elevation of AST and ALT with transaminitis postoperatively, likely from hypotension 10. Degenerative arthritis with chronic back pain 11. Family history of colon cancer 12. Postoperative acute blood loss anemia, expected secondary to hemodilution and cardiopulmonary bypass pump 13. Hypotension requiring pressor use 14. Acute kidney injury secondary to hypoperfusion requiring initiation of dialysis 15. Shock liver secondary to hypoperfusion 16. Lactic acidosis secondary to hypoperfusion 17. Hypoxic respiratory failure requiring BiPAP 18. Thrombocytopenia 19. A. fib with RVR, known common occurrence after open heart surgery, status post exclusion of the left atrial appendage 20. Coagulopathy with DIC Plan: 1. Aspirin, statin, Plavix, beta kiki on hold, will restart when able, likely will restart low-dose beta kiki today. 2. Wean from BiPAP as tolerated, management per senior office support assistant sosa, Dr. Ott wants patient to have dialysis again today before removing from BiPAP. Bronchodilators per senior office support assistant sosa 3. Increase activity when able. PT/OT/cardiac rehab consulted 4. Will monitor daily labs and chest x-rays. Electrolyte replacement per protocol, will give IV calcium. 5. GI/DVT prophylaxis 6. Pain control current per current medication regimen 7. Insulin management per primary care service. Patient is not diabetic, hemoglobin A1c 5.7% 8. Nephrology consulted, appreciate recommendations. 9. Hematology consulted for thrombocytopenia, elevated liver function. HIT panel sent, await results 10. Will continue mediastinal, left pleural chest tubes for another 24 hours 11. Continue Acevedo for strict accurate intake and output. Daily weight 12. More recommendations to follow based on patient's progress Time with Patient: Greater than 30
[2020-12-31] MEDS ORDERED: CALCIUM GLUCONATE 2 GM in SODIUM CHLORIDE 0.9% 100 ML IVPB ONE (08:00)
--- NOTE | 2020-12-31 08:22 | P.PN ---
Subjective Progress Note Date: 12/31/20 Principal diagnosis: 1. Septic shock 2. DIC 3. Liver failure 4. Kidney failure 5. Aortic stenosis Afebrile. On BiPAP Objective - Vital Signs Vital signs: Vital Signs Temp 98.8 F 12/31/20 04:00 Pulse 88 12/31/20 07:00 Resp 23 12/31/20 07:00 BP 153/79 12/31/20 07:00 Pulse Ox 96 12/31/20 07:00 Intake & Output 12/30/20 12/31/20 12/31/20 18:59 06:59 18:59 Intake Total 3283.972 706 46 Output Total 275 320 35 Balance 3008.972 386 11 Weight 68.3 kg Intake: IV 618 706 46 Calcium gluconate 100 D5.9 340 440 40 Potassium Chloride 100 Zosyn 100 100 pressure bags 78 66 6 Intake, IV Titration 67.972 Amount Phenylephrine 40 mg In 67.972 Sodium Chloride 0.9% 250 ml @ 0.5 MCG/KG/MIN 13. 468 mls/hr IV .[id number] [facility] Rx#:[id number] Blood Product 598 Platelet Pheresis Pas 348 Psoralen Unit [id number] Platelet Pheresis Pas-C 250 Unit [id number] Hemodialysis 1999 Output: Chest Tube Drainage 270 310 30 Right Pleural/Mediastinal 270 310 30 Urine 5 10 5 Other: Voiding Method Indwelling Catheter Indwelling Catheter # Bowel Movements 1 1 ABP, PAP, CO, CI - Last Documented Arterial Blood Pressure 159/57 Pulmonary Artery Pressure 12/5 Cardiac Output 4.2 Cardiac Index 2.6 - Exam Physical Exam: Gen.: In no acute distress. HEENT: Has scleral icterus. Neck: Supple. Lungs: On BiPAP Heart: Regular rate. No lower extremity edema. Abdomen: Soft. MSK: No obvious deformities. Neuro: Lethargic Skin: Jaundice. - Labs CBC & Chem 7: 12/31/20 04:10 12/31/20 04:10 Labs: Abnormal Lab Results - Last 24 Hours (Table) 12/28/20 12/30/20 12/30/20 Range/Units 04:25 08:09 10:08 WBC (3.8-10.6) k/uL RBC (3.80-5.40) m/uL Hgb (11.4-16.0) gm/dL Hct (34.0-46.0) % RDW (11.5-15.5) % Plt Count (150-450) k/uL Neutrophils # (1.3-7.7) k/uL Neutrophils # (Manual) (1.3-7.7) k/uL Lymphocytes # (1.0-4.8) k/uL Lymphocytes # (Manual) (1.0-4.8) k/uL Monocytes # (0-1.0) k/uL Metamyelocytes # (Man) (0) k/uL Nucleated RBCs (0-0) /100 WBC PT (9.0-12.0) sec INR (<1.2) APTT (22.0-30.0) sec ABG Lactic Acid (0.5-1.6) mmol/L Sodium (137-145) mmol/L BUN (7-17) mg/dL Creatinine (0.52-1.04) mg/dL Glucose (74-99) mg/dL POC Glucose (mg/dL) 138 H 123 H (75-99) mg/dL Calcium (8.4-10.2) mg/dL Ionized Calcium Beatrice (4.5-5.3) mg/dL Total Bilirubin (0.2-1.3) mg/dL AST (14-36) U/L ALT (4-34) U/L Total Protein (6.3-8.2) g/dL Albumin (3.5-5.0) g/dL Crossmatch See Detail 12/30/20 12/30/20 12/30/20 Range/Units 11:49 13:57 15:52 WBC (3.8-10.6) k/uL RBC (3.80-5.40) m/uL Hgb (11.4-16.0) gm/dL Hct (34.0-46.0) % RDW (11.5-15.5) % Plt Count (150-450) k/uL Neutrophils # (1.3-7.7) k/uL Neutrophils # (Manual) (1.3-7.7) k/uL Lymphocytes # (1.0-4.8) k/uL Lymphocytes # (Manual) (1.0-4.8) k/uL Monocytes # (0-1.0) k/uL Metamyelocytes # (Man) (0) k/uL Nucleated RBCs (0-0) /100 WBC PT (9.0-12.0) sec INR (<1.2) APTT (22.0-30.0) sec ABG Lactic Acid (0.5-1.6) mmol/L Sodium (137-145) mmol/L BUN (7-17) mg/dL Creatinine (0.52-1.04) mg/dL Glucose (74-99) mg/dL POC Glucose (mg/dL) 113 H 102 H 106 H (75-99) mg/dL Calcium (8.4-10.2) mg/dL Ionized Calcium Beatrice (4.5-5.3) mg/dL Total Bilirubin (0.2-1.3) mg/dL AST (14-36) U/L ALT (4-34) U/L Total Protein (6.3-8.2) g/dL Albumin (3.5-5.0) g/dL Crossmatch 12/30/20 12/30/20 12/30/20 Range/Units 18:25 19:00 19:00 WBC 10.8 H (3.8-10.6) k/uL RBC 2.76 L (3.80-5.40) m/uL Hgb 9.1 L (11.4-16.0) gm/dL Hct 24.6 L (34.0-46.0) % RDW (11.5-15.5) % Plt Count 30 L (150-450) k/uL Neutrophils # 8.6 H (1.3-7.7) k/uL Neutrophils # (Manual) (1.3-7.7) k/uL Lymphocytes # 0.8 L (1.0-4.8) k/uL Lymphocytes # (Manual) (1.0-4.8) k/uL Monocytes # 1.1 H (0-1.0) k/uL Metamyelocytes # (Man) (0) k/uL Nucleated RBCs (0-0) /100 WBC PT 22.4 H (9.0-12.0) sec INR 2.3 H (<1.2) APTT 31.9 H (22.0-30.0) sec ABG Lactic Acid (0.5-1.6) mmol/L Sodium (137-145) mmol/L BUN (7-17) mg/dL Creatinine (0.52-1.04) mg/dL Glucose (74-99) mg/dL POC Glucose (mg/dL) 112 H (75-99) mg/dL Calcium (8.4-10.2) mg/dL Ionized Calcium Beatrice (4.5-5.3) mg/dL Total Bilirubin (0.2-1.3) mg/dL AST (14-36) U/L ALT (4-34) U/L Total Protein (6.3-8.2) g/dL Albumin (3.5-5.0) g/dL Crossmatch 12/30/20 12/30/20 12/30/20 Range/Units 19:00 20:16 22:33 WBC (3.8-10.6) k/uL RBC (3.80-5.40) m/uL Hgb (11.4-16.0) gm/dL Hct (34.0-46.0) % RDW (11.5-15.5) % Plt Count (150-450) k/uL Neutrophils # (1.3-7.7) k/uL Neutrophils # (Manual) (1.3-7.7) k/uL Lymphocytes # (1.0-4.8) k/uL Lymphocytes # (Manual) (1.0-4.8) k/uL Monocytes # (0-1.0) k/uL Metamyelocytes # (Man) (0) k/uL Nucleated RBCs (0-0) /100 WBC PT (9.0-12.0) sec INR (<1.2) APTT (22.0-30.0) sec ABG Lactic Acid (0.5-1.6) mmol/L Sodium 135 L (137-145) mmol/L BUN 28 H (7-17) mg/dL Creatinine 1.98 H (0.52-1.04) mg/dL Glucose 112 H (74-99) mg/dL POC Glucose (mg/dL) 119 H 125 H (75-99) mg/dL Calcium 8.1 L (8.4-10.2) mg/dL Ionized Calcium Beatrice (4.5-5.3) mg/dL Total Bilirubin 6.7 H (0.2-1.3) mg/dL AST 5564 H (14-36) U/L ALT 2439 H (4-34) U/L Total Protein 5.5 L (6.3-8.2) g/dL Albumin (3.5-5.0) g/dL Crossmatch 12/31/20 12/31/20 12/31/20 Range/Units 02:15 04:10 04:10 WBC (3.8-10.6) k/uL RBC 2.75 L (3.80-5.40) m/uL Hgb 8.5 L (11.4-16.0) gm/dL Hct 24.8 L (34.0-46.0) % RDW 15.6 H (11.5-15.5) % Plt Count 25 L (150-450) k/uL Neutrophils # (1.3-7.7) k/uL Neutrophils # (Manual) 8.54 H (1.3-7.7) k/uL Lymphocytes # (1.0-4.8) k/uL Lymphocytes # (Manual) 0.58 L (1.0-4.8) k/uL Monocytes # (0-1.0) k/uL Metamyelocytes # (Man) 0.19 H (0) k/uL Nucleated RBCs 7 H (0-0) /100 WBC PT 22.3 H (9.0-12.0) sec INR 2.3 H (<1.2) APTT 32.2 H (22.0-30.0) sec ABG Lactic Acid (0.5-1.6) mmol/L Sodium (137-145) mmol/L BUN (7-17) mg/dL Creatinine (0.52-1.04) mg/dL Glucose (74-99) mg/dL POC Glucose (mg/dL) 126 H (75-99) mg/dL Calcium (8.4-10.2) mg/dL Ionized Calcium Beatrice (4.5-5.3) mg/dL Total Bilirubin (0.2-1.3) mg/dL AST (14-36) U/L ALT (4-34) U/L Total Protein (6.3-8.2) g/dL Albumin (3.5-5.0) g/dL Crossmatch 12/31/20 12/31/20 12/31/20 Range/Units 04:10 04:10 04:11 WBC (3.8-10.6) k/uL RBC (3.80-5.40) m/uL Hgb (11.4-16.0) gm/dL Hct (34.0-46.0) % RDW (11.5-15.5) % Plt Count (150-450) k/uL Neutrophils # (1.3-7.7) k/uL Neutrophils # (Manual) (1.3-7.7) k/uL Lymphocytes # (1.0-4.8) k/uL Lymphocytes # (Manual) (1.0-4.8) k/uL Monocytes # (0-1.0) k/uL Metamyelocytes # (Man) (0) k/uL Nucleated RBCs (0-0) /100 WBC PT (9.0-12.0) sec INR (<1.2) APTT (22.0-30.0) sec ABG Lactic Acid 1.8 H (0.5-1.6) mmol/L Sodium 136 L (137-145) mmol/L BUN 41 H (7-17) mg/dL Creatinine 2.58 H (0.52-1.04) mg/dL Glucose 125 H (74-99) mg/dL POC Glucose (mg/dL) 136 H (75-99) mg/dL Calcium 7.9 L (8.4-10.2) mg/dL Ionized Calcium Beatrice 4.1 L (4.5-5.3) mg/dL Total Bilirubin 7.6 H (0.2-1.3) mg/dL AST 4112 H (14-36) U/L ALT 2017 H (4-34) U/L Total Protein 5.3 L (6.3-8.2) g/dL Albumin 3.4 L (3.5-5.0) g/dL Crossmatch 12/31/20 Range/Units 06:04 WBC (3.8-10.6) k/uL RBC (3.80-5.40) m/uL Hgb (11.4-16.0) gm/dL Hct (34.0-46.0) % RDW (11.5-15.5) % Plt Count (150-450) k/uL Neutrophils # (1.3-7.7) k/uL Neutrophils # (Manual) (1.3-7.7) k/uL Lymphocytes # (1.0-4.8) k/uL Lymphocytes # (Manual) (1.0-4.8) k/uL Monocytes # (0-1.0) k/uL Metamyelocytes # (Man) (0) k/uL Nucleated RBCs (0-0) /100 WBC PT (9.0-12.0) sec INR (<1.2) APTT (22.0-30.0) sec ABG Lactic Acid (0.5-1.6) mmol/L Sodium (137-145) mmol/L BUN (7-17) mg/dL Creatinine (0.52-1.04) mg/dL Glucose (74-99) mg/dL POC Glucose (mg/dL) 127 H (75-99) mg/dL Calcium (8.4-10.2) mg/dL Ionized Calcium Beatrice (4.5-5.3) mg/dL Total Bilirubin (0.2-1.3) mg/dL AST (14-36) U/L ALT (4-34) U/L Total Protein (6.3-8.2) g/dL Albumin (3.5-5.0) g/dL Crossmatch Microbiology - Last 24 Hours (Table) 12/28/20 15:19 Blood Culture - Preliminary Blood No Growth after 48 hours Assessment and Plan Assessment: 1. Septic shock 2. Coagulopathy due to DIC 3. Anemia 4. Thrombocytopenia 5. Liver failure 6. Kidney failure 7. Aortic stenosis 8. CAD Plan: Ms. Silva is a 65 yo female here for aortic stenosis s/p surgery/CABG, course complicated by septic shock with multiorgan failure due to shock including shock liver and renal failure on dialysis. Coagulopathy and cytopenia due to BM shock and liver disease and DIC. Continue supportive care. Supportive transfusion. HIT antibody sent, pending. Monitor DIC profile, including fibrinogen and transfuse cryoprecipitate for fibrinogen <100.
[2020-12-31] MEDS: PIPERACILLIN-TAZOBACTAM 3.375 GM in SODIUM CHLORIDE 0.9% 100 ML IVPB SCH ×2 (08:24→21:06)
[2020-12-31] MEDS: PANTOPRAZOLE 40 MG/10 ML VIAL IVP SCH ×2 (08:25→21:05)
--- NOTE | 2020-12-31 08:37 | P.PN ---
Subjective Progress Note Date: 12/31/20 Principal diagnosis: This is a 65-year-old female who is seen in consultation because of acute kidney injury, status post coronary artery bypass graft on 12/26/2020 and additionally aortic valve replacement with a bioprosthetic valve. Postop she went into shock severe lactic acidosis and became anuric. She also has shock liver with bilirubin at 5. She was dialyzed yesterday for 3 L over 5 hours. Tolerated fairly well. On Friday yesterday she was on on BiPAP, and on small doses of Agustín-Syshe was dialyzed yesterday, over 4 hours and 2 L taken off. Tolerated very well and came off of the Agustín-Synephrine. His morning she is awake and alert on 50% on CPAP. Blood pressures and vital signs are stable she's off off all inotropes. She is not making any urine. Past history significant for hypothyroidism and coronary artery disease hypertension. She has had a coronary stent in the past Objective - Vital Signs Vital signs: Vital Signs Temp 98.8 F 12/31/20 04:00 Pulse 91 12/31/20 07:25 Resp 20 12/31/20 07:25 BP 153/79 12/31/20 07:00 Pulse Ox 97 12/31/20 07:11 Intake & Output 12/30/20 12/31/20 12/31/20 18:59 06:59 18:59 Intake Total 3283.972 706 46 Output Total 275 320 35 Balance 3008.972 386 11 Weight 68.3 kg Intake: IV 618 706 46 Calcium gluconate 100 D5.9 340 440 40 Potassium Chloride 100 Zosyn 100 100 pressure bags 78 66 6 Intake, IV Titration 67.972 Amount Phenylephrine 40 mg In 67.972 Sodium Chloride 0.9% 250 ml @ 0.5 MCG/KG/MIN 13. 468 mls/hr IV .[id number] [facility] Rx#:[id number] Blood Product 598 Platelet Pheresis Pas 348 Psoralen Unit [id number] Platelet Pheresis Pas-C 250 Unit [id number] Hemodialysis 1999 Output: Chest Tube Drainage 270 310 30 Right Pleural/Mediastinal 270 310 30 Urine 5 10 5 Other: Voiding Method Indwelling Catheter Indwelling Catheter # Bowel Movements 1 1 ABP, PAP, CO, CI - Last Documented Arterial Blood Pressure 159/57 Pulmonary Artery Pressure 12/5 Cardiac Output 4.2 Cardiac Index 2.6 On examination awake alert follows commands. On 50% FiO2 via BiPAP HEENT exam no JVP neck is supple no facial asymmetry Lungs are clear to auscultation except diminished air entry on the left base. Heart sounds unremarkable normal sinus rhythm Abdomen is slightly tender but vaguely fall sounds are diminished Extremity exam was mild edema Neurologically awake alert but weak - Labs CBC & Chem 7: 12/31/20 04:10 12/31/20 04:10 Labs: Abnormal Lab Results - Last 24 Hours (Table) 12/28/20 12/30/20 12/30/20 Range/Units 04:25 10:08 11:49 WBC (3.8-10.6) k/uL RBC (3.80-5.40) m/uL Hgb (11.4-16.0) gm/dL Hct (34.0-46.0) % RDW (11.5-15.5) % Plt Count (150-450) k/uL Neutrophils # (1.3-7.7) k/uL Neutrophils # (Manual) (1.3-7.7) k/uL Lymphocytes # (1.0-4.8) k/uL Lymphocytes # (Manual) (1.0-4.8) k/uL Monocytes # (0-1.0) k/uL Metamyelocytes # (Man) (0) k/uL Nucleated RBCs (0-0) /100 WBC PT (9.0-12.0) sec INR (<1.2) APTT (22.0-30.0) sec ABG Lactic Acid (0.5-1.6) mmol/L Sodium (137-145) mmol/L BUN (7-17) mg/dL Creatinine (0.52-1.04) mg/dL Glucose (74-99) mg/dL POC Glucose (mg/dL) 123 H 113 H (75-99) mg/dL Calcium (8.4-10.2) mg/dL Ionized Calcium Beatrice (4.5-5.3) mg/dL Total Bilirubin (0.2-1.3) mg/dL AST (14-36) U/L ALT (4-34) U/L Total Protein (6.3-8.2) g/dL Albumin (3.5-5.0) g/dL Crossmatch See Detail 12/30/20 12/30/20 12/30/20 Range/Units 13:57 15:52 18:25 WBC (3.8-10.6) k/uL RBC (3.80-5.40) m/uL Hgb (11.4-16.0) gm/dL Hct (34.0-46.0) % RDW (11.5-15.5) % Plt Count (150-450) k/uL Neutrophils # (1.3-7.7) k/uL Neutrophils # (Manual) (1.3-7.7) k/uL Lymphocytes # (1.0-4.8) k/uL Lymphocytes # (Manual) (1.0-4.8) k/uL Monocytes # (0-1.0) k/uL Metamyelocytes # (Man) (0) k/uL Nucleated RBCs (0-0) /100 WBC PT (9.0-12.0) sec INR (<1.2) APTT (22.0-30.0) sec ABG Lactic Acid (0.5-1.6) mmol/L Sodium (137-145) mmol/L BUN (7-17) mg/dL Creatinine (0.52-1.04) mg/dL Glucose (74-99) mg/dL POC Glucose (mg/dL) 102 H 106 H 112 H (75-99) mg/dL Calcium (8.4-10.2) mg/dL Ionized Calcium Beatrice (4.5-5.3) mg/dL Total Bilirubin (0.2-1.3) mg/dL AST (14-36) U/L ALT (4-34) U/L Total Protein (6.3-8.2) g/dL Albumin (3.5-5.0) g/dL Crossmatch 12/30/20 12/30/20 12/30/20 Range/Units 19:00 19:00 19:00 WBC 10.8 H (3.8-10.6) k/uL RBC 2.76 L (3.80-5.40) m/uL Hgb 9.1 L (11.4-16.0) gm/dL Hct 24.6 L (34.0-46.0) % RDW (11.5-15.5) % Plt Count 30 L (150-450) k/uL Neutrophils # 8.6 H (1.3-7.7) k/uL Neutrophils # (Manual) (1.3-7.7) k/uL Lymphocytes # 0.8 L (1.0-4.8) k/uL Lymphocytes # (Manual) (1.0-4.8) k/uL Monocytes # 1.1 H (0-1.0) k/uL Metamyelocytes # (Man) (0) k/uL Nucleated RBCs (0-0) /100 WBC PT 22.4 H (9.0-12.0) sec INR 2.3 H (<1.2) APTT 31.9 H (22.0-30.0) sec ABG Lactic Acid (0.5-1.6) mmol/L Sodium 135 L (137-145) mmol/L BUN 28 H (7-17) mg/dL Creatinine 1.98 H (0.52-1.04) mg/dL Glucose 112 H (74-99) mg/dL POC Glucose (mg/dL) (75-99) mg/dL Calcium 8.1 L (8.4-10.2) mg/dL Ionized Calcium Beatrice (4.5-5.3) mg/dL Total Bilirubin 6.7 H (0.2-1.3) mg/dL AST 5564 H (14-36) U/L ALT 2439 H (4-34) U/L Total Protein 5.5 L (6.3-8.2) g/dL Albumin (3.5-5.0) g/dL Crossmatch 12/30/20 12/30/20 12/31/20 Range/Units 20:16 22:33 02:15 WBC (3.8-10.6) k/uL RBC (3.80-5.40) m/uL Hgb (11.4-16.0) gm/dL Hct (34.0-46.0) % RDW (11.5-15.5) % Plt Count (150-450) k/uL Neutrophils # (1.3-7.7) k/uL Neutrophils # (Manual) (1.3-7.7) k/uL Lymphocytes # (1.0-4.8) k/uL Lymphocytes # (Manual) (1.0-4.8) k/uL Monocytes # (0-1.0) k/uL Metamyelocytes # (Man) (0) k/uL Nucleated RBCs (0-0) /100 WBC PT (9.0-12.0) sec INR (<1.2) APTT (22.0-30.0) sec ABG Lactic Acid (0.5-1.6) mmol/L Sodium (137-145) mmol/L BUN (7-17) mg/dL Creatinine (0.52-1.04) mg/dL Glucose (74-99) mg/dL POC Glucose (mg/dL) 119 H 125 H 126 H (75-99) mg/dL Calcium (8.4-10.2) mg/dL Ionized Calcium Beatrice (4.5-5.3) mg/dL Total Bilirubin (0.2-1.3) mg/dL AST (14-36) U/L ALT (4-34) U/L Total Protein (6.3-8.2) g/dL Albumin (3.5-5.0) g/dL Crossmatch 12/31/20 12/31/20 12/31/20 Range/Units 04:10 04:10 04:10 WBC (3.8-10.6) k/uL RBC 2.75 L (3.80-5.40) m/uL Hgb 8.5 L (11.4-16.0) gm/dL Hct 24.8 L (34.0-46.0) % RDW 15.6 H (11.5-15.5) % Plt Count 25 L (150-450) k/uL Neutrophils # (1.3-7.7) k/uL Neutrophils # (Manual) 8.54 H (1.3-7.7) k/uL Lymphocytes # (1.0-4.8) k/uL Lymphocytes # (Manual) 0.58 L (1.0-4.8) k/uL Monocytes # (0-1.0) k/uL Metamyelocytes # (Man) 0.19 H (0) k/uL Nucleated RBCs 7 H (0-0) /100 WBC PT 22.3 H (9.0-12.0) sec INR 2.3 H (<1.2) APTT 32.2 H (22.0-30.0) sec ABG Lactic Acid (0.5-1.6) mmol/L Sodium 136 L (137-145) mmol/L BUN 41 H (7-17) mg/dL Creatinine 2.58 H (0.52-1.04) mg/dL Glucose 125 H (74-99) mg/dL POC Glucose (mg/dL) (75-99) mg/dL Calcium 7.9 L (8.4-10.2) mg/dL Ionized Calcium Beatrice 4.1 L (4.5-5.3) mg/dL Total Bilirubin 7.6 H (0.2-1.3) mg/dL AST 4112 H (14-36) U/L ALT 2017 H (4-34) U/L Total Protein 5.3 L (6.3-8.2) g/dL Albumin 3.4 L (3.5-5.0) g/dL Crossmatch 12/31/20 12/31/20 12/31/20 Range/Units 04:10 04:11 06:04 WBC (3.8-10.6) k/uL RBC (3.80-5.40) m/uL Hgb (11.4-16.0) gm/dL Hct (34.0-46.0) % RDW (11.5-15.5) % Plt Count (150-450) k/uL Neutrophils # (1.3-7.7) k/uL Neutrophils # (Manual) (1.3-7.7) k/uL Lymphocytes # (1.0-4.8) k/uL Lymphocytes # (Manual) (1.0-4.8) k/uL Monocytes # (0-1.0) k/uL Metamyelocytes # (Man) (0) k/uL Nucleated RBCs (0-0) /100 WBC PT (9.0-12.0) sec INR (<1.2) APTT (22.0-30.0) sec ABG Lactic Acid 1.8 H (0.5-1.6) mmol/L Sodium (137-145) mmol/L BUN (7-17) mg/dL Creatinine (0.52-1.04) mg/dL Glucose (74-99) mg/dL POC Glucose (mg/dL) 136 H 127 H (75-99) mg/dL Calcium (8.4-10.2) mg/dL Ionized Calcium Beatrice (4.5-5.3) mg/dL Total Bilirubin (0.2-1.3) mg/dL AST (14-36) U/L ALT (4-34) U/L Total Protein (6.3-8.2) g/dL Albumin (3.5-5.0) g/dL Crossmatch Microbiology - Last 24 Hours (Table) 12/28/20 15:19 Blood Culture - Preliminary Blood No Growth after 48 hours Assessment and Plan Assessment: Present 1. Severe ATN from shock, anuric. Postop CABG and bioprosthetic aortic valve replacement on 12/26/2020 Started on low efficiency dialysis on 12/29/2020 as well as yesterday 12/30/2020, liters over 4 hours and stable remains anuric she has a right femoral Akash 2. respiratory failure, Improved. Currently on 50% FiO2 on BiPAP. 3. Mild degree of congestive heart failureradiologically 4. Shock liver, bilirubin is up from 6.7-7.6, ALT and AST are improving . 5. Thrombocytopenia secondary to DIC-like picture 6. Digoxin toxicity, level is 2.9 repeat is 2.1 as of yesterday. Recommendation; 1. Will dialyze her today for 4 hours with a small dialyzer F 40 with a blood flow of 200 and dialysate flow of 400 with the goal ultrafiltration of 2 L. 2. Continue to watch blood pressures and urine output and dialyzed as necessar y 3. Watch liver function tests. and thrombocytopenia
[2020-12-31] MEDS: ONDANSETRON 4 MG/2 ML VIAL IVP PRN ×2 (08:39→14:36)
[2020-12-31] MEDS: METOPROLOL TARTRATE 12.5 MG TAB PO SCH ×2 (10:52→21:05)
--- NOTE | 2020-12-31 10:54 | P.PN ---
Subjective Progress Note Date: 12/31/20 HISTORY OF PRESENT ILLNESS This is a 65-year-old female patient of Dr. 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 Patient underwent echocardiogram that revealed an ejection fraction of 55-60% with LVH, mild to moderate MR, bicuspid severely calcified aortic valve with moderate aortic regurgitation, moderate tricuspid regurgitation. The patient underwent cardiac julián terizationTEE for further evaluation. The cath showed right coronary artery stenosis in the order of 85% without any significant coronary artery disease. The transthoracic echocardiogram showed severe aortic stenosis. Patient underwent aortic valve replacement and one-vessel CABG with reverse saphenous vein graft off the aorta to the right coronary artery. Patient was admitted into the intensive care unit and was successfully extubated. She is seen today in the intensive care unit. She is up in a recliner. Eyota-Kelli in place, mediastinal and right-sided chest tubes in place, Acevedo catheter in place. Patient denies having any chest pain. She states she is not feeling too bad today. She has a little nausea. No abdominal pain. She states she slept okay last night. She has been afebrile, heart rate 71, blood pressure 119/52, pulse ox 90% on 5 L nasal cannula. Blood work this morning reveals W BC 15.2, hemoglobin 8, platelet count 168. Electrolytes normal, BUN 19 and creatinine 0.78. Blood sugars running between 124 and 141. AST 167. Chest x-ray reveals small residual right apical pneumothorax may be present. Chest tubes pulled back slightly from comparison. Eyota-Kelli catheter is somewhat peripheral and the right main pulmonary artery region. Cardiomegaly. Small left pleural effusion. 12/28: Patient remains in the intensive care unit. Patient has become hypoten sive with low urine output, elevated lactic acid, anemia, liver enzyme elevation and generalized anasarca. Patient is been started on dopamine, Primacor and is status post albumin and is status post 1 unit packed RBCs this morning. Urine output is improving. She is on BiPAP. Patient complains of generalized not feeling well and shortness of breath. Repeat CXR reports slight increase in mild left hilar and left basilar edema and/or atelectasis. Small pleural effusion. WBC 18.7, hemoglobin initially 6.8 and repeat a 0.1. Platelet count 124. INR 2.8. Electrolytes normal. BUN 32 and creatinine 1.53. Blood sugars running in the 140-170s. Total bilirubin 1.9, AST 1140, ALT 662, alkaline phosphatase 30. Amylase and lipase normal. 12/29: She remains in the intensive care unit. She has not been intubated. Her overall condition continues to decline and she is scheduled for dialysis catheter placement to start hemodialysis. She has had virtually no urine output despite being on Lasix drip patient also went into atrial fibrillation and started on digoxin. She remains with right pleural and mediastinal chest tubes are in place. Additional new diagnoses include A. fib with RVR, ischemic bowel suspected, bicytopenia. Patient is awake. She is complaining of chest discomfort. She is not have increased edema. Her temperature has been low down to 96.5. Heart rate 114, blood pressure 122/54, pulse ox 90%. WBC 14.6, hemoglobin 6, platelet count 26. INR 3.3. Electrolytes normal. BUN 53 and creatinine 2.77. Calcium 7.8. Ionized calcium 3.8. Total bilirubin 3, AST 11,442, ALT 3572, alkaline phosphatase 41. She has been ordered for plasma, platelets and RBC transfusions. 12/30: Patient is currently on BiPAP. She had dialysis catheter placed by vascular surgeon yesterday and underwent her first hemodialysis with removal of 3 L. She has had no urine output overnight. She remains with chest tubes in place. Acevedo catheter is in place. Repeat blood work reveals W BC 13.3, hemoglobin 9, platelet count 24. She is scheduled for platelet transfusion today. INR 2.6. BUN 33 creatinine 2.18. Blood sugars are running between 110 and 138. Magnesium 2.2. Potassium 4.3. Total bilirubin 5.0, AST 8066, ALT 2707, alkaline phosphatase 74. Digoxin level II.9. Patient not currently on digoxin. personnel monitor sinus rhythm with a bundle branch block. She has been afebrile, heart rate in the 80s, blood pressure 138/52, pulse ox 93%. Cultures no growth at 24 hours. 12/31: Patient is scheduled for repeat dialysis today. She has had 15 mL output overnight of urine. Patient complains of nausea. Reglan changed to scheduled. She states she's had some ice chips. Patient is awake and alert but thinks it's June 2021. She did have a bowel movement this morning. Patient has been afebrile, heart rate in the 80s and 90s, blood pressure 145/72, pulse ox 97% on BiPAP. Repeat blood work reveals WBC 9.7, hemoglobin 8.5, platelet count 25. No plan for platelet transfusion today. INR is 2.3. Sodium 136 otherwise electrolytes are normal. BUN 41 and creatinine 2.58. Ionized calcium 4.1, total bilirubin 7.6, AST 4112, ALT 2017, alkaline phosphatase 94. Blood sugars are running between 96 and 136. PICC line is ordered for tomorrow. REVIEW OF SYSTEMS Constitutional: No fever, no chills, no night sweats. No weight change. Reports generalized weakness, reports fatigue reports lethargy. No daytime sleepiness. EENT: No headache. No change in vision, no loss of vision. No loss of Hearing, no dizziness. No nasal drainage or congestion. No epistaxis. No sore throat. Lungs: Reports shortness of breath, cough, no sputum production. No wheezing. Cardiovascular: Reports chest discomfort, reports lower extremity edema. Reports generalized edema. No palpitations. No paroxysmal nocturnal dyspnea. No orthopnea. No lightheadedness or dizziness. No syncopal episodes. Abdominal: No abdominal pain. Reports nausea, denies vomiting. No diarrhea. No constipation. No bloody or tarry stools.. No loss of appetite. Genitourinary: No dysuria, increased frequency, urgency. No urinary retention. Musculoskeletal: No myalgias. Reports muscle weakness, no gait dysfunction, no frequent falls. No back pain. No neck pain. Integumentary: No wounds, no lesions. No rash or pruritus. Neurologic: No aphasia. No facial droop. No change in mentation. No head injury. No headache. No paralysis. No paresthesia. Psychiatric: No depression. No anxiety. Endocrine: Reports abnormal blood sugars. PHYSICAL EXAMINATION Gen: This paradise 65-year-old female. She is resting in ICU bed, currently on BiPAP HEENT: Head is atraumatic, normocephalic. Pupils equal, round. Sclerae is anicteric. NECK: Supple. No JVD. No lymphadenopathy. No thyromegaly. Right-sided Cordis in place. LUNGS: Clear to auscultation. No wheezes or rhonchi. No intercostal retractions. Right pleural and mediastinal chest tubes in place. HEART: Regular rate and rhythm. No murmur. ABDOMEN: Soft. Bowel sounds are present. No masses. No tenderness. Acevedo catheter in place. EXTREMITIES: Mild generalized pedal edema. No calf tenderness. Dorsalis pedis palpable bilaterally. NEUROLOGICAL: Patient is awake, alert and oriented x3. Cranial nerves 2 through 12 are grossly intact. ASSESSMENT AND PLAN 1. Aortic valve replacement for bicuspid valve with moderate aortic regurg itation and single-vessel CABG with CVG to RCA. Patient is postop day # 5. She has been successfully extubated. Continue current management per cardiothoracic surgery. 2. Rule out cardiogenic shock. Currently stable. 3. Transaminitis secondary to hypoperfusion and shock liver. Continue to m onitor liver function tests and INR. 4. Acute blood loss anemia, expected following surgery. Repeat transfusion today. 5. Lactic acidosis secondary to hyperperfusion, improving. 6. A. fib with RVR, paroxysmal atrial fibrillation, converted to sinus rhythm. 7. Possible ischemic bowel. 8. Bicytopenia with thrombocytopenia and anemia. Status post total transfusion of 5 units of platelets, 4 units of fresh frozen plasma, 4 units of packed RBCs. 9. Acute renal failure requiring dialysis. Patient started hemodialysis on December 29. 10. Acute hypoxic respiratory failure requiring BiPAP. 11. SIRS with multiorgan failure. Continue current management. 12. Hypertension. Patient is currently hypotensive. 13. Hyperlipidemia. 14. History of CVA 2. 15. Hypothyroidism. Continue levothyroxine 25 g daily. 16. Recurrent depression. Continue Zoloft 25 mg at bedtime. 17. Degenerative disc disease. 18. GI prophylaxis. Protonix 40 mg IV push twice daily. 19. DVT prophylaxis. Off heparin due to thrombocytopenia DISCHARGE PLAN TBD. Impression and plan of care have been directed as dictated by the signing physician. Donna Gutierrez nurse practitioner acting as scribe for signing physician. Objective - Vital Signs Vital signs: Vital Signs Temp 97.4 F L 12/31/20 08:00 Pulse 88 12/31/20 08:00 Resp 18 12/31/20 08:00 BP 156/74 12/31/20 08:00 Pulse Ox 97 12/31/20 08:00 Intake & Output 12/30/20 12/31/20 12/31/20 18:59 06:59 18:59 Intake Total 3283.972 706 46 Output Total 275 320 35 Balance 3008.972 386 11 Weight 68.3 kg Intake: IV 618 706 46 Calcium gluconate 100 D5.9 340 440 40 Potassium Chloride 100 Zosyn 100 100 pressure bags 78 66 6 Intake, IV Titration 67.972 Amount Phenylephrine 40 mg In 67.972 Sodium Chloride 0.9% 250 ml @ 0.5 MCG/KG/MIN 13. 468 mls/hr IV .[id number] [facility] Rx#:[id number] Blood Product 598 Platelet Pheresis Pas 348 Psoralen Unit [id number] Platelet Pheresis Pas-C 250 Unit [id number] Hemodialysis 1999 Output: Chest Tube Drainage 270 310 30 Right Pleural/Mediastinal 270 310 30 Urine 5 10 5 Other: Voiding Method Indwelling Catheter Indwelling Catheter # Bowel Movements 1 1 ABP, PAP, CO, CI - Last Documented Arterial Blood Pressure 163/52 Pulmonary Artery Pressure 12/5 Cardiac Output 4.2 Cardiac Index 2.6 - Labs CBC & Chem 7: 12/31/20 04:10 12/31/20 04:10 Labs: Abnormal Lab Results - Last 24 Hours (Table) 12/30/20 12/30/20 12/30/20 Range/Units 10:08 11:49 13:57 WBC (3.8-10.6) k/uL RBC (3.80-5.40) m/uL Hgb (11.4-16.0) gm/dL Hct (34.0-46.0) % RDW (11.5-15.5) % Plt Count (150-450) k/uL Neutrophils # (1.3-7.7) k/uL Neutrophils # (Manual) (1.3-7.7) k/uL Lymphocytes # (1.0-4.8) k/uL Lymphocytes # (Manual) (1.0-4.8) k/uL Monocytes # (0-1.0) k/uL Metamyelocytes # (Man) (0) k/uL Nucleated RBCs (0-0) /100 WBC PT (9.0-12.0) sec INR (<1.2) APTT (22.0-30.0) sec ABG Lactic Acid (0.5-1.6) mmol/L Sodium (137-145) mmol/L BUN (7-17) mg/dL Creatinine (0.52-1.04) mg/dL Glucose (74-99) mg/dL POC Glucose (mg/dL) 123 H 113 H 102 H (75-99) mg/dL Calcium (8.4-10.2) mg/dL Ionized Calcium Beatrice (4.5-5.3) mg/dL Total Bilirubin (0.2-1.3) mg/dL AST (14-36) U/L ALT (4-34) U/L Total Protein (6.3-8.2) g/dL Albumin (3.5-5.0) g/dL 12/30/20 12/30/20 12/30/20 Range/Units 15:52 18:25 19:00 WBC 10.8 H (3.8-10.6) k/uL RBC 2.76 L (3.80-5.40) m/uL Hgb 9.1 L (11.4-16.0) gm/dL Hct 24.6 L (34.0-46.0) % RDW (11.5-15.5) % Plt Count 30 L (150-450) k/uL Neutrophils # 8.6 H (1.3-7.7) k/uL Neutrophils # (Manual) (1.3-7.7) k/uL Lymphocytes # 0.8 L (1.0-4.8) k/uL Lymphocytes # (Manual) (1.0-4.8) k/uL Monocytes # 1.1 H (0-1.0) k/uL Metamyelocytes # (Man) (0) k/uL Nucleated RBCs (0-0) /100 WBC PT (9.0-12.0) sec INR (<1.2) APTT (22.0-30.0) sec ABG Lactic Acid (0.5-1.6) mmol/L Sodium (137-145) mmol/L BUN (7-17) mg/dL Creatinine (0.52-1.04) mg/dL Glucose (74-99) mg/dL POC Glucose (mg/dL) 106 H 112 H (75-99) mg/dL Calcium (8.4-10.2) mg/dL Ionized Calcium Beatrice (4.5-5.3) mg/dL Total Bilirubin (0.2-1.3) mg/dL AST (14-36) U/L ALT (4-34) U/L Total Protein (6.3-8.2) g/dL Albumin (3.5-5.0) g/dL 12/30/20 12/30/20 12/30/20 Range/Units 19:00 19:00 20:16 WBC (3.8-10.6) k/uL RBC (3.80-5.40) m/uL Hgb (11.4-16.0) gm/dL Hct (34.0-46.0) % RDW (11.5-15.5) % Plt Count (150-450) k/uL Neutrophils # (1.3-7.7) k/uL Neutrophils # (Manual) (1.3-7.7) k/uL Lymphocytes # (1.0-4.8) k/uL Lymphocytes # (Manual) (1.0-4.8) k/uL Monocytes # (0-1.0) k/uL Metamyelocytes # (Man) (0) k/uL Nucleated RBCs (0-0) /100 WBC PT 22.4 H (9.0-12.0) sec INR 2.3 H (<1.2) APTT 31.9 H (22.0-30.0) sec ABG Lactic Acid (0.5-1.6) mmol/L Sodium 135 L (137-145) mmol/L BUN 28 H (7-17) mg/dL Creatinine 1.98 H (0.52-1.04) mg/dL Glucose 112 H (74-99) mg/dL POC Glucose (mg/dL) 119 H (75-99) mg/dL Calcium 8.1 L (8.4-10.2) mg/dL Ionized Calcium Beatrice (4.5-5.3) mg/dL Total Bilirubin 6.7 H (0.2-1.3) mg/dL AST 5564 H (14-36) U/L ALT 2439 H (4-34) U/L Total Protein 5.5 L (6.3-8.2) g/dL Albumin (3.5-5.0) g/dL 12/30/20 12/31/20 12/31/20 Range/Units 22:33 02:15 04:10 WBC (3.8-10.6) k/uL RBC 2.75 L (3.80-5.40) m/uL Hgb 8.5 L (11.4-16.0) gm/dL Hct 24.8 L (34.0-46.0) % RDW 15.6 H (11.5-15.5) % Plt Count 25 L (150-450) k/uL Neutrophils # (1.3-7.7) k/uL Neutrophils # (Manual) 8.54 H (1.3-7.7) k/uL Lymphocytes # (1.0-4.8) k/uL Lymphocytes # (Manual) 0.58 L (1.0-4.8) k/uL Monocytes # (0-1.0) k/uL Metamyelocytes # (Man) 0.19 H (0) k/uL Nucleated RBCs 7 H (0-0) /100 WBC PT (9.0-12.0) sec INR (<1.2) APTT (22.0-30.0) sec ABG Lactic Acid (0.5-1.6) mmol/L Sodium (137-145) mmol/L BUN (7-17) mg/dL Creatinine (0.52-1.04) mg/dL Glucose (74-99) mg/dL POC Glucose (mg/dL) 125 H 126 H (75-99) mg/dL Calcium (8.4-10.2) mg/dL Ionized Calcium Beatrice (4.5-5.3) mg/dL Total Bilirubin (0.2-1.3) mg/dL AST (14-36) U/L ALT (4-34) U/L Total Protein (6.3-8.2) g/dL Albumin (3.5-5.0) g/dL 12/31/20 12/31/20 12/31/20 Range/Units 04:10 04:10 04:10 WBC (3.8-10.6) k/uL RBC (3.80-5.40) m/uL Hgb (11.4-16.0) gm/dL Hct (34.0-46.0) % RDW (11.5-15.5) % Plt Count (150-450) k/uL Neutrophils # (1.3-7.7) k/uL Neutrophils # (Manual) (1.3-7.7) k/uL Lymphocytes # (1.0-4.8) k/uL Lymphocytes # (Manual) (1.0-4.8) k/uL Monocytes # (0-1.0) k/uL Metamyelocytes # (Man) (0) k/uL Nucleated RBCs (0-0) /100 WBC PT 22.3 H (9.0-12.0) sec INR 2.3 H (<1.2) APTT 32.2 H (22.0-30.0) sec ABG Lactic Acid 1.8 H (0.5-1.6) mmol/L Sodium 136 L (137-145) mmol/L BUN 41 H (7-17) mg/dL Creatinine 2.58 H (0.52-1.04) mg/dL Glucose 125 H (74-99) mg/dL POC Glucose (mg/dL) (75-99) mg/dL Calcium 7.9 L (8.4-10.2) mg/dL Ionized Calcium Beatrice 4.1 L (4.5-5.3) mg/dL Total Bilirubin 7.6 H (0.2-1.3) mg/dL AST 4112 H (14-36) U/L ALT 2017 H (4-34) U/L Total Protein 5.3 L (6.3-8.2) g/dL Albumin 3.4 L (3.5-5.0) g/dL 12/31/20 12/31/20 Range/Units 04:11 06:04 WBC (3.8-10.6) k/uL RBC (3.80-5.40) m/uL Hgb (11.4-16.0) gm/dL Hct (34.0-46.0) % RDW (11.5-15.5) % Plt Count (150-450) k/uL Neutrophils # (1.3-7.7) k/uL Neutrophils # (Manual) (1.3-7.7) k/uL Lymphocytes # (1.0-4.8) k/uL Lymphocytes # (Manual) (1.0-4.8) k/uL Monocytes # (0-1.0) k/uL Metamyelocytes # (Man) (0) k/uL Nucleated RBCs (0-0) /100 WBC PT (9.0-12.0) sec INR (<1.2) APTT (22.0-30.0) sec ABG Lactic Acid (0.5-1.6) mmol/L Sodium (137-145) mmol/L BUN (7-17) mg/dL Creatinine (0.52-1.04) mg/dL Glucose (74-99) mg/dL POC Glucose (mg/dL) 136 H 127 H (75-99) mg/dL Calcium (8.4-10.2) mg/dL Ionized Calcium Beatrice (4.5-5.3) mg/dL Total Bilirubin (0.2-1.3) mg/dL AST (14-36) U/L ALT (4-34) U/L Total Protein (6.3-8.2) g/dL Albumin (3.5-5.0) g/dL Microbiology - Last 24 Hours (Table) 12/28/20 15:19 Blood Culture - Preliminary Blood No Growth after 48 hours
[2020-12-31 12:07] LABS: Glucose,Whole Blood 150 mg/dL (75-99)
--- NOTE | 2020-12-31 13:13 | P.PN ---
Subjective Progress Note Date: 12/31/20 HISTORY OF PRESENT ILLNESS: 12/27/2020 This is a 65-year-old female with a past medical history significant for CVA/TIA, hypertension, hyperlipidemia, nicotine dependence, and hypothyroidism. Patient follows in the office with Dr. Lee. We have been asked to see the patient in consultation for postoperative care. Patient examined this morning in the intensive care unit. Patient is status post aortic valve replacement and CABG 1: SVG to RCA. Postop day #1. Patient is sitting up in the chair. Patient is hemodynamically stable and not requiring any vasopressor support. Patient is on 5 L nasal cannula with oxygen saturations greater than 92%. The patient has a weak nonproductive cough. She denies chest pain or pressure. She denies shortness of breath. She reports nausea this morning. No episodes of emesis. She is receiving 500cc albumin at the time of examination. Telemetry reveals sinus mechanism. Chest xray small residual right apical pneumothorax may be present. Cardiomegaly. Small left pleural effusion. Laboratory data: WBC 15.2. Hemoglobin 8.0. Platelet count 160. Sodium 137. Potassium 4.8. BUN 19. Creatinine 0.78. Magnesium 2.2. Current home cardiac medications include amlodipine 5 mg daily, metoprolol tartrate 12.5 mg twice a day, Lipitor 40 mg daily, and aspirin 81 mg daily FIDEL: 12/15/2020 revealing severe aortic stenosis which is calcific in nature with mild eccentric aortic regurgitation. Mild mitral and tricuspid regurgitation. Biatrial enlargement. No clot in left atrial appendage. No PFO. Normal LV function. Cardiac catheterization: 12/15/2020 revealing 80% lesion of RCA. 12/28/2020 Patient is s/p CABG x 1 and AVR. POD #1. Patient examined this morning in the ICU. Patient developed hypotension, lactic acidosis, shortness of breath, and increasing oxygen requirement overnight. Patient was placed on a BiPAP. She received sodium bicarb. She is currently on dopamine and Primacor. Hemoglobin is 6.8. Patient received 1 unit packed RBCs. Blood pressure 102/39. Heart rate in the 70s. 12/29/2020 Patient examined this morning in the intensive care unit. Patient remains on a bipap. Overnight, the patient had decreased urine output. Patient was given IV lasix and subsequently started on a lasix drip. Patient with worsening hypotension and has been started on vasopressors. Patient also went into afib with RVR this morning. She has been started on Digoxin. Hemoglobin 6.0. Platelet count 26. INR 3.3. BUN 53. Creatinine 2.77. AST 11,442. ALT 3572. Patient is to receive a hemodialysis catheter today and will be started on hemodialysis. 12/30/2020 Patient examined this morning in the intensive care unit. She remains on a BiPAP. patient states her breathing has improved this morning. Patient is curre ntly maintaining sinus mechanism on telemetry. Patient underwent hemodialysis yesterday with removal of 3 L. she is also receiving hemodialysis again this morning. She remains on vasopressor support with Agustín-Synephrine. Hemoglobin 9.0. Platelet count 24. BUN 33. Creatinine 2.18. AST 8066. ALT 2707. 12/31/2020 Patient examined this morning in the intensive care unit. Patient remains on a BiPAP. Patient is awake and alert. Patient remains in sinus mechanism on telemetry. Patient's vasopressors have been weaned off. Patient received hemodialysis for the second time yesterday. Hemoglobin 8.5. Platelet count 25. INR 2.3. BUN 41. Creatinine 2.56. AST 4112. ALT 2118. PHYSICAL EXAM: VITAL SIGNS: Reviewed. GENERAL: Well-developed in no acute distress. HEENT: Head is normocephalic. Pupils are equal, round. Sclerae anicteric. Mucous membranes of the mouth are moist. Neck supple. No JVD or thyromegaly LUNGS: Respirations even and unlabored. Lungs diminished bilaterally. HEART: Regular rate and rhythm. S1 and S2 heard. Chest tube noted with no evidence of air leak. Heart hugger noted. EXTREMITIES: Normal range of motion. No clubbing or cyanosis. Peripheral pulses intact. Trace bilateral lower extremity edema ASSESSMENT: Severe aortic stenosis, s/p bioprosthetic aortic valve replacement, 12/26/2020 Coronary artery disease, s/p CABG x 1 SVG to RCA, 12/26/2020 New onset paroxysmal atrial fibrillation with RVR, currently maintaining sinus mechanism Acute hypoxic respiratory failure, requiring bipap Thrombocytopenia Coagulopathy, INR 3.3, improving Acute blood loss anemia Lactic acidosis Transaminitis, suspect secondary to hypotension Acute kidney injury Hypertension Hyperlipidemia CVA with residual right-sided blindness Hypothyroidism Former nicotine dependence PLAN: Continue postoperative management per CTS Continue telemetry monitoring Statin held due to elevated LFTs Aspirin and Plavix remain on hold Beta kiki resumed today Monitor hemoglobin Hematology following for thrombocytopenia Nephrology following. Patient to receive dialysis again today. Further recommendations pending patient course Nurse practitioner note has been reviewed by physician. Signing provider agrees with the documented findings, assessment, and plan of care. Objective - Vital Signs Vital signs: Vital Signs Temp 98.4 F 12/31/20 12:00 Pulse 99 12/31/20 12:00 Resp 18 12/31/20 12:00 BP 148/68 12/31/20 12:00 Pulse Ox 96 12/31/20 12:00 Intake & Output 12/30/20 12/31/20 12/31/20 18:59 06:59 18:59 Intake Total 3283.972 706 276 Output Total 275 320 135 Balance 3008.972 386 141 Weight 68.3 kg Intake: IV 618 706 276 Calcium gluconate 100 D5.9 340 440 240 Potassium Chloride 100 Zosyn 100 100 pressure bags 78 66 36 Intake, IV Titration 67.972 Amount Phenylephrine 40 mg In 67.972 Sodium Chloride 0.9% 250 ml @ 0.5 MCG/KG/MIN 13. 468 mls/hr IV .[id number] [facility] Rx#:[id number] Blood Product 598 Platelet Pheresis Pas 348 Psoralen Unit [id number] Platelet Pheresis Pas-C 250 Unit [id number] Hemodialysis 1999 Output: Chest Tube Drainage 270 310 120 Right Pleural 20 Right Pleural/Mediastinal 270 310 100 Urine 5 10 15 Other: Voiding Method Indwelling Catheter Indwelling Catheter Indwelling Catheter # Bowel Movements 1 1 ABP, PAP, CO, CI - Last Documented Arterial Blood Pressure 156/52 Pulmonary Artery Pressure 12/5 Cardiac Output 4.2 Cardiac Index 2.6 - Labs CBC & Chem 7: 12/31/20 04:10 12/31/20 04:10 Labs: Abnormal Lab Results - Last 24 Hours (Table) 12/30/20 12/30/20 12/30/20 Range/Units 13:57 15:52 18:25 WBC (3.8-10.6) k/uL RBC (3.80-5.40) m/uL Hgb (11.4-16.0) gm/dL Hct (34.0-46.0) % RDW (11.5-15.5) % Plt Count (150-450) k/uL Neutrophils # (1.3-7.7) k/uL Neutrophils # (Manual) (1.3-7.7) k/uL Lymphocytes # (1.0-4.8) k/uL Lymphocytes # (Manual) (1.0-4.8) k/uL Monocytes # (0-1.0) k/uL Metamyelocytes # (Man) (0) k/uL Nucleated RBCs (0-0) /100 WBC PT (9.0-12.0) sec INR (<1.2) APTT (22.0-30.0) sec ABG Lactic Acid (0.5-1.6) mmol/L Sodium (137-145) mmol/L BUN (7-17) mg/dL Creatinine (0.52-1.04) mg/dL Glucose (74-99) mg/dL POC Glucose (mg/dL) 102 H 106 H 112 H (75-99) mg/dL Calcium (8.4-10.2) mg/dL Ionized Calcium Beatrice (4.5-5.3) mg/dL Total Bilirubin (0.2-1.3) mg/dL AST (14-36) U/L ALT (4-34) U/L Total Protein (6.3-8.2) g/dL Albumin (3.5-5.0) g/dL 12/30/20 12/30/20 12/30/20 Range/Units 19:00 19:00 19:00 WBC 10.8 H (3.8-10.6) k/uL RBC 2.76 L (3.80-5.40) m/uL Hgb 9.1 L (11.4-16.0) gm/dL Hct 24.6 L (34.0-46.0) % RDW (11.5-15.5) % Plt Count 30 L (150-450) k/uL Neutrophils # 8.6 H (1.3-7.7) k/uL Neutrophils # (Manual) (1.3-7.7) k/uL Lymphocytes # 0.8 L (1.0-4.8) k/uL Lymphocytes # (Manual) (1.0-4.8) k/uL Monocytes # 1.1 H (0-1.0) k/uL Metamyelocytes # (Man) (0) k/uL Nucleated RBCs (0-0) /100 WBC PT 22.4 H (9.0-12.0) sec INR 2.3 H (<1.2) APTT 31.9 H (22.0-30.0) sec ABG Lactic Acid (0.5-1.6) mmol/L Sodium 135 L (137-145) mmol/L BUN 28 H (7-17) mg/dL Creatinine 1.98 H (0.52-1.04) mg/dL Glucose 112 H (74-99) mg/dL POC Glucose (mg/dL) (75-99) mg/dL Calcium 8.1 L (8.4-10.2) mg/dL Ionized Calcium Beatrice (4.5-5.3) mg/dL Total Bilirubin 6.7 H (0.2-1.3) mg/dL AST 5564 H (14-36) U/L ALT 2439 H (4-34) U/L Total Protein 5.5 L (6.3-8.2) g/dL Albumin (3.5-5.0) g/dL 12/30/20 12/30/20 12/31/20 Range/Units 20:16 22:33 02:15 WBC (3.8-10.6) k/uL RBC (3.80-5.40) m/uL Hgb (11.4-16.0) gm/dL Hct (34.0-46.0) % RDW (11.5-15.5) % Plt Count (150-450) k/uL Neutrophils # (1.3-7.7) k/uL Neutrophils # (Manual) (1.3-7.7) k/uL Lymphocytes # (1.0-4.8) k/uL Lymphocytes # (Manual) (1.0-4.8) k/uL Monocytes # (0-1.0) k/uL Metamyelocytes # (Man) (0) k/uL Nucleated RBCs (0-0) /100 WBC PT (9.0-12.0) sec INR (<1.2) APTT (22.0-30.0) sec ABG Lactic Acid (0.5-1.6) mmol/L Sodium (137-145) mmol/L BUN (7-17) mg/dL Creatinine (0.52-1.04) mg/dL Glucose (74-99) mg/dL POC Glucose (mg/dL) 119 H 125 H 126 H (75-99) mg/dL Calcium (8.4-10.2) mg/dL Ionized Calcium Beatrice (4.5-5.3) mg/dL Total Bilirubin (0.2-1.3) mg/dL AST (14-36) U/L ALT (4-34) U/L Total Protein (6.3-8.2) g/dL Albumin (3.5-5.0) g/dL 12/31/20 12/31/20 12/31/20 Range/Units 04:10 04:10 04:10 WBC (3.8-10.6) k/uL RBC 2.75 L (3.80-5.40) m/uL Hgb 8.5 L (11.4-16.0) gm/dL Hct 24.8 L (34.0-46.0) % RDW 15.6 H (11.5-15.5) % Plt Count 25 L (150-450) k/uL Neutrophils # (1.3-7.7) k/uL Neutrophils # (Manual) 8.54 H (1.3-7.7) k/uL Lymphocytes # (1.0-4.8) k/uL Lymphocytes # (Manual) 0.58 L (1.0-4.8) k/uL Monocytes # (0-1.0) k/uL Metamyelocytes # (Man) 0.19 H (0) k/uL Nucleated RBCs 7 H (0-0) /100 WBC PT 22.3 H (9.0-12.0) sec INR 2.3 H (<1.2) APTT 32.2 H (22.0-30.0) sec ABG Lactic Acid (0.5-1.6) mmol/L Sodium 136 L (137-145) mmol/L BUN 41 H (7-17) mg/dL Creatinine 2.58 H (0.52-1.04) mg/dL Glucose 125 H (74-99) mg/dL POC Glucose (mg/dL) (75-99) mg/dL Calcium 7.9 L (8.4-10.2) mg/dL Ionized Calcium Baetrice 4.1 L (4.5-5.3) mg/dL Total Bilirubin 7.6 H (0.2-1.3) mg/dL AST 4112 H (14-36) U/L ALT 2017 H (4-34) U/L Total Protein 5.3 L (6.3-8.2) g/dL Albumin 3.4 L (3.5-5.0) g/dL 12/31/20 12/31/20 12/31/20 Range/Units 04:10 04:11 06:04 WBC (3.8-10.6) k/uL RBC (3.80-5.40) m/uL Hgb (11.4-16.0) gm/dL Hct (34.0-46.0) % RDW (11.5-15.5) % Plt Count (150-450) k/uL Neutrophils # (1.3-7.7) k/uL Neutrophils # (Manual) (1.3-7.7) k/uL Lymphocytes # (1.0-4.8) k/uL Lymphocytes # (Manual) (1.0-4.8) k/uL Monocytes # (0-1.0) k/uL Metamyelocytes # (Man) (0) k/uL Nucleated RBCs (0-0) /100 WBC PT (9.0-12.0) sec INR (<1.2) APTT (22.0-30.0) sec ABG Lactic Acid 1.8 H (0.5-1.6) mmol/L Sodium (137-145) mmol/L BUN (7-17) mg/dL Creatinine (0.52-1.04) mg/dL Glucose (74-99) mg/dL POC Glucose (mg/dL) 136 H 127 H (75-99) mg/dL Calcium (8.4-10.2) mg/dL Ionized Calcium Beatrice (4.5-5.3) mg/dL Total Bilirubin (0.2-1.3) mg/dL AST (14-36) U/L ALT (4-34) U/L Total Protein (6.3-8.2) g/dL Albumin (3.5-5.0) g/dL 12/31/20 Range/Units 12:05 WBC (3.8-10.6) k/uL RBC (3.80-5.40) m/uL Hgb (11.4-16.0) gm/dL Hct (34.0-46.0) % RDW (11.5-15.5) % Plt Count (150-450) k/uL Neutrophils # (1.3-7.7) k/uL Neutrophils # (Manual) (1.3-7.7) k/uL Lymphocytes # (1.0-4.8) k/uL Lymphocytes # (Manual) (1.0-4.8) k/uL Monocytes # (0-1.0) k/uL Metamyelocytes # (Man) (0) k/uL Nucleated RBCs (0-0) /100 WBC PT (9.0-12.0) sec INR (<1.2) APTT (22.0-30.0) sec ABG Lactic Acid (0.5-1.6) mmol/L Sodium (137-145) mmol/L BUN (7-17) mg/dL Creatinine (0.52-1.04) mg/dL Glucose (74-99) mg/dL POC Glucose (mg/dL) 150 H (75-99) mg/dL Calcium (8.4-10.2) mg/dL Ionized Calcium Beatrice (4.5-5.3) mg/dL Total Bilirubin (0.2-1.3) mg/dL AST (14-36) U/L ALT (4-34) U/L Total Protein (6.3-8.2) g/dL Albumin (3.5-5.0) g/dL Microbiology - Last 24 Hours (Table) 12/28/20 15:19 Blood Culture - Preliminary Blood No Growth after 48 hours
[2020-12-31] MEDS: KETOROLAC 15 MG/ML 1 ML VIAL IVP SCH (15:31)
[2020-12-31 16:27] LABS: Glucose,Whole Blood 117 mg/dL (75-99)
[2020-12-31] MEDS: METOCLOPRAMIDE 5 MG/ML 2 ML VIAL IVP SCH (16:45)
[2020-12-31] MEDS: LEVOTHYROXINE 25 MCG TAB PO SCH (21:05)
[2020-12-31] MEDS: SERTRALINE 25 MG TAB PO SCH (21:05)
[2020-12-31] MEDS: SENNOSIDES-DOCUSATE SODIUM 1 EACH TAB PO SCH (21:06)
[2020-12-31 21:24] LABS: Glucose,Whole Blood 123 mg/dL (75-99)
[2020-12-31 23:36] LABS: Glucose,Whole Blood 127 mg/dL (75-99)
[2021-01-01] MEDS: METOCLOPRAMIDE 5 MG/ML 2 ML VIAL IVP SCH ×2 (00:11→09:14)
[2021-01-01] MEDS: fentaNYL (PF) 50 MCG/ML 2 ML AMP IVP PRN ×3 (00:33→21:50)
[2021-01-01] MEDS: DEXTROSE 5%-0.9% NACL 1,000 ML IV SCH (04:59)
[2021-01-01 05:05] LABS: Glucose,Whole Blood 143 mg/dL (75-99)
[2021-01-01 05:19] LABS: HCT 26.2 % (34.0-46.0); HGB 9.1 gm/dL (11.4-16.0); MCH 31.5 pg (25.0-35.0); MCHC 34.6 g/dL (31.0-37.0); MCV 91.2 fL (80.0-100.0); Mean Platelet Volume 11.2; Poikilocytosis Slight; RBC 2.87 m/uL (3.80-5.40); RDW 15.7 % (11.5-15.5)
[2021-01-01 05:38] LABS: INR 1.8 (<1.2); Partial Thromboplastin Time 30.8 sec (22.0-30.0); Platelet Count 33 k/uL (150-450); Prothrombin Time 17.5 sec (9.0-12.0)
[2021-01-01 05:54] LABS: Ionized Calcium 4.4 mg/dL (4.5-5.3)
[2021-01-01 06:04] LABS: Albumin 3.3 g/dL (3.5-5.0); Calcium 8.1 mg/dL (8.4-10.2); Total Bilirubin 11.1 mg/dL (0.2-1.3); Total Protein 5.3 g/dL (6.3-8.2)
[2021-01-01 06:14] LABS: Eosinophils # (M) 0.14 k/uL (0-0.7); Metamyelocytes # (M) 0.27 k/uL (0); Metamyelocytes % 2 %; Monocytes # (M) 1.92 k/uL (0-1.0); Neutrophils # (M) 10.55 k/uL (1.3-7.7); Neutrophils % (M) 77 %; Nucleated Red Blood Cells 2 /100 WBC (0-0); Polychromasia Present; Total Cells Counted 200; WBC 13.7 k/uL (3.8-10.6)
[2021-01-01 06:15] LABS: Anisocytosis (M) Present
--- NOTE | 2021-01-01 07:34 | P.PN ---
Subjective Progress Note Date: 01/01/21 Principal diagnosis: Severe bicuspid aortic valve stenosis, coronary artery disease. 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, right internal carotid artery stenosis 50-79% per Doppler, previous tobacco dependence with moderate obstructive lung disease and preoperative FEV1 56% of predicted, preoperative elevation of AST and ALT, degenerative arthritis with chronic back pain, and fam chato history of colon cancer POD #6 aortic valve replacement with #21 mm Jackson Inspiris bioprosthetic aortic valve, coronary artery bypass grafting 1 with reverse saphenous vein graft off the aorta to the right coronary artery, clip ligation of the left atrial appendage with a 35 mm AtriClip, intraoperative transesophageal echocardiogram. Postoperative acute blood loss anemia, expected secondary to hemodilution and cardiopulmonary bypass pump, status post PRBC transfusion Hypotension requiring pressor use, currently off pressors Acute kidney injury secondary to hypoperfusion requiring initiation of dialysis Shock liver secondary to hypoperfusion, improving Lactic acidosis secondary to hypoperfusion, resolved Hypoxic respiratory failure requiring BiPAP, currently on nasal cannula Thrombocytopenia A. fib with RVR, known common occurrence after open heart surgery, currently sinus rhythm Coagulopathy with DIC, improving The patient was seen and examined this morning the intensive care unit. She does complain of post surgical pain which is relieved with IV fentanyl, some louis rtness of breath, and continued nausea. She was transitioned to nasal cannula, currently at 3 L with oxygen saturation in the mid 90s. Her blood pressure stable off pressors. Remains in sinus rhythm with first-degree AV block. Continues on IV Zosyn. WBC 13.7, hemoglobin 9.1, platelet count 33,000, BUN 52, creatinine 3.31, INR 1.8, AST 2123, ALT 1484. No evidence of active bleeding. Urine output has picked up at 15-20 mL/h overnight. She received dialysis yesterday for the third time. Nephrology and hematology on board, continue to monitor. Her abdomen remains soft but tender to palpation, she has had a bowel movement. The patient was stood at the bedside this morning for 3 minutes and tolerated fairly well although still has some generalized weakness. Epicardial pacemaker wires, right pleural chest tube, right internal jugular Cordis, right radial arterial line, right femoral dialysis catheter all remain. Family continues to be updated daily Objective - Vital Signs Vital signs: Vital Signs Temp 97.7 F 01/01/21 05:00 Pulse 80 01/01/21 06:00 Resp 18 01/01/21 06:00 BP 148/78 01/01/21 06:00 Pulse Ox 94 L 01/01/21 06:00 Intake & Output 12/31/20 01/01/21 01/01/21 18:59 06:59 18:59 Intake Total 582 720 Output Total 2240 317 Balance -1658 403 Weight 66.9 kg Intake: IV 582 670 0.9 30 70 D5.9 480 440 Zosyn 100 pressure bags 72 60 Oral 50 Output: Chest Tube Drainage 190 121 Right Pleural 90 121 Right Pleural/Mediastinal 100 Urine 50 196 Hemodialysis 1999 Other: Voiding Method Indwelling Catheter Indwelling Catheter ABP, PAP, CO, CI - Last Documented Arterial Blood Pressure 150/53 Pulmonary Artery Pressure 12/5 Cardiac Output 4.2 Cardiac Index 2.6 - Exam CONSTITUTIONAL: Appears comfortable, cooperative RESPIRATORY: Lungs sounds diminished bilaterally with faint expiratory wheezes heard. Respirations even, nonlabored. Currently on 3 L nasal cannula with oxygen saturation mid 90s. Strong nonproductive cough. CARDIOVASCULAR: S1, S2 present. Regular rate and rhythm, normal sinus rhythm with first-degree AV block on telemetry, heart rate in the 80s. Sternum stable. Palpable peripheral pulses bilaterally. Generalized edema present. No calf pain or tenderness noted. Heart hugger in place. Antiembolism stockings, SCDs present. GASTROINTESTINAL: Abdomen soft, nontender, nondistended. Active bowel sounds present 4 quadrants. Positive bowel movement. GENITOURINARY: Acevedo present draining clear yellow urine. Output overnight 15- 20 mL/hr INTEGUMENTARY: Skin is warm and dry. Slight jaundice to face and eyes. Anterior chest incision well approximated and covered with dry intact dressing. Right lower extremity EVH site well approximated without redness or drainage. Few scattered areas of petechiae, ecchymosis to the right thigh which is expected, no increase in size NEUROLOGIC: Cranial nerves II through XII intact MUSKULOSKELETAL: Able to move all extremities, strength equal bilaterally but weak PSYCHIATRIC: Alert and oriented to person place and time, appropriate affect, intact judgment and insight INVASIVE LINES AND TUBES: Right pleural chest tubes present and connected to wall suction, no air leak present. Right tube with 90 mL serosanguineous draina ge overnight, 300 mL in the last 24 hours. A/V epicardial pacemaker wires present, connected to generator, VVI mode with backup rate 50 bpm. Right internal jugular Cordis, right radial arterial line, right femoral dialysis catheter present. - Allied health notes Allied health notes reviewed: nursing - Labs CBC & Chem 7: 01/01/21 05:05 01/01/21 05:05 Labs: Abnormal Lab Results - Last 24 Hours (Table) 12/31/20 12/31/20 12/31/20 Range/Units 12:05 16:26 21:23 WBC (3.8-10.6) k/uL RBC (3.80-5.40) m/uL Hgb (11.4-16.0) gm/dL Hct (34.0-46.0) % RDW (11.5-15.5) % Plt Count (150-450) k/uL Neutrophils # (Manual) (1.3-7.7) k/uL Monocytes # (Manual) (0-1.0) k/uL Metamyelocytes # (Man) (0) k/uL Nucleated RBCs (0-0) /100 WBC PT (9.0-12.0) sec INR (<1.2) APTT (22.0-30.0) sec BUN (7-17) mg/dL Creatinine (0.52-1.04) mg/dL Glucose (74-99) mg/dL POC Glucose (mg/dL) 150 H 117 H 123 H (75-99) mg/dL Calcium (8.4-10.2) mg/dL Ionized Calcium Beatrice (4.5-5.3) mg/dL Total Bilirubin (0.2-1.3) mg/dL AST (14-36) U/L ALT (4-34) U/L Alkaline Phosphatase (38-126) U/L Total Protein (6.3-8.2) g/dL Albumin (3.5-5.0) g/dL 12/31/20 01/01/21 01/01/21 Range/Units 23:34 05:03 05:05 WBC 13.7 H (3.8-10.6) k/uL RBC 2.87 L (3.80-5.40) m/uL Hgb 9.1 L (11.4-16.0) gm/dL Hct 26.2 L (34.0-46.0) % RDW 15.7 H (11.5-15.5) % Plt Count 33 L (150-450) k/uL Neutrophils # (Manual) 10.55 H (1.3-7.7) k/uL Monocytes # (Manual) 1.92 H (0-1.0) k/uL Metamyelocytes # (Man) 0.27 H (0) k/uL Nucleated RBCs 2 H (0-0) /100 WBC PT (9.0-12.0) sec INR (<1.2) APTT (22.0-30.0) sec BUN (7-17) mg/dL Creatinine (0.52-1.04) mg/dL Glucose (74-99) mg/dL POC Glucose (mg/dL) 127 H 143 H (75-99) mg/dL Calcium (8.4-10.2) mg/dL Ionized Calcium Beatrice (4.5-5.3) mg/dL Total Bilirubin (0.2-1.3) mg/dL AST (14-36) U/L ALT (4-34) U/L Alkaline Phosphatase (38-126) U/L Total Protein (6.3-8.2) g/dL Albumin (3.5-5.0) g/dL 01/01/21 01/01/21 Range/Units 05:05 05:05 WBC (3.8-10.6) k/uL RBC (3.80-5.40) m/uL Hgb (11.4-16.0) gm/dL Hct (34.0-46.0) % RDW (11.5-15.5) % Plt Count (150-450) k/uL Neutrophils # (Manual) (1.3-7.7) k/uL Monocytes # (Manual) (0-1.0) k/uL Metamyelocytes # (Man) (0) k/uL Nucleated RBCs (0-0) /100 WBC PT 17.5 H (9.0-12.0) sec INR 1.8 H (<1.2) APTT 30.8 H (22.0-30.0) sec BUN 52 H (7-17) mg/dL Creatinine 3.31 H (0.52-1.04) mg/dL Glucose 127 H (74-99) mg/dL POC Glucose (mg/dL) (75-99) mg/dL Calcium 8.1 L (8.4-10.2) mg/dL Ionized Calcium Beatrice 4.4 L (4.5-5.3) mg/dL Total Bilirubin 11.1 H (0.2-1.3) mg/dL AST 2123 H (14-36) U/L ALT 1484 H (4-34) U/L Alkaline Phosphatase 128 H (38-126) U/L Total Protein 5.3 L (6.3-8.2) g/dL Albumin 3.3 L (3.5-5.0) g/dL Microbiology - Last 24 Hours (Table) 12/28/20 15:19 Blood Culture - Preliminary Blood No Growth after 72 hours - Imaging and Cardiology Chest x-ray: image reviewed Assessment and Plan Assessment: 1. Severe bicuspid aortic valve stenosis, status post aortic valve replacement with #21 mm Jackson Inspiris bioprosthetic aortic valve 2. Coronary artery disease, status post single vessel CABG 3. History of hypertension, currently hypotensive on Agustín-Synephrine 4. Hyperlipidemia, treated, cholesterol 111, LDL 38 5. Hypothyroid 6. 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 Right internal carotid artery stenosis 50-79% per Doppler 8. Previous tobacco dependence with moderate obstructive lung disease and preoperative FEV1 56% of predicted 9. Preoperative elevation of AST and ALT with transaminitis postoperatively, likely from hypotension 10. Degenerative arthritis with chronic back pain 11. Family history of colon cancer 12. Postoperative acute blood loss anemia, expected secondary to hemodilution and cardiopulmonary bypass pump 13. Hypotension requiring pressor use 14. Acute kidney injury secondary to hypoperfusion requiring initiation of dialysis 15. Shock liver secondary to hypoperfusion 16. Lactic acidosis secondary to hypoperfusion 17. Hypoxic respiratory failure requiring BiPAP 18. Thrombocytopenia 19. A. fib with RVR, known common occurrence after open heart surgery, status post exclusion of the left atrial appendage 20. Coagulopathy with DIC Plan: 1. Aspirin, statin, Plavix on hold, will restart when able. Continue beta kiki, will increase to 25 mg BID 2. Wean O2 as tolerated. Bronchodilators per paper bundler 3. Increase activity, up to chair, ambulate when able. PT/OT/cardiac rehab consulted 4. Will monitor daily labs and chest x-rays. Electrolyte replacement per protocol. Will give 1 gm calcium 5. GI/DVT prophylaxis 6. Pain control current per current medication regimen 7. Insulin management per primary care service. Patient is not diabetic, hemoglobin A1c 5.7% 8. Nephrology consulted, appreciate recommendations. 9. Hematology consulted for thrombocytopenia, elevated liver function. HIT panel sent, still awaiting results 10. Likely will discontinue right pleural chest tube 11. Continue Acevedo for strict accurate intake and output. Daily weight 12. Will feed patient as tolerated. Discontinue cordis 13. More recommendations to follow based on patient's progress Time with Patient: Greater than 30
--- NOTE | 2021-01-01 07:37 | XR ---
EXAMINATION TYPE: XR chest 1V portable DATE OF EXAM: 01/01/2021 Comparison: 12/31/2020 Clinical History: 65-year-old female post cardiac surgery Findings: Median sternotomy wires are present. Prosthetic aortic valve. Increasing moderate left pleural effusi on and bilateral patchy opacities. Right-sided chest tube remains in place. A fine linear density pro jecting across the left apex seems to extend beyond the thoracic markings suggesting external artifac t. Follow-up recommended. Epicardial pacer leads. Lung volumes are diminished. Right IJ sheath remain s in place. Impression: 1. Diminishing lung volumes and suspected worsening pulmonary vascular congestion. Increasing moderat e left pleural effusion with adjacent atelectasis and/or consolidation. 2. Fine linear density projecting across the left apex, suspected external artifact rather than a sma ll pneumothorax. Short interval follow-up recommended to reassess.
[2021-01-01] MEDS: IPRATROPIUM-ALBUTEROL 3 ML NEB INHALATION SCH ×4 (07:38→22:12)
[2021-01-01] MEDS: PANTOPRAZOLE 40 MG/10 ML VIAL IVP SCH ×2 (09:14→21:49)
[2021-01-01] MEDS: METOPROLOL TARTRATE 12.5 MG TAB PO SCH (09:15)
[2021-01-01 09:26] LABS: Glucose,Whole Blood 143 mg/dL (75-99)
--- NOTE | 2021-01-01 09:43 | US ---
EXAMINATION TYPE: US chest DATE OF EXAM: 01/01/2021 COMPARISON: Radiograph same day CLINICAL HISTORY: 65-year-old female Markings for thoracentesis by pulmonary staff. Pleural effusion TECHNIQUE: Targeted ultrasound of the posterior lower left hemithorax EXAM MEASUREMENTS: Left Pleural Effusion pocket size: 10.4 cm Left skin surface to fluid distance: 1.8 cm. Lung tissue visualized 3.5 cm in fluid pocket. Left side marked for possible thoracentesis outside the dept. Pulmonologists are able to review the images in the patient?s EMR. IMPRESSIONS: Moderate sized left-sided pleural effusion.
[2021-01-01] MEDS ORDERED: FUROSEMIDE 10 MG/ML 10 ML VIAL IV STA (10:16)
[2021-01-01] MEDS ORDERED: CALCIUM GLUCONATE 1 GM in SODIUM CHLORIDE 0.9% 100 ML IVPB ONE (10:22)
[2021-01-01] MEDS ORDERED: METOPROLOL TARTRATE 12.5 MG TAB PO STA (10:23)
--- NOTE | 2021-01-01 10:31 | P.PN ---
Subjective Progress Note Date: 01/01/21 Principal diagnosis: Aortic valve replacement and CABG 1 vessel postoperative day #6 2020 the patient is being seen for a follow-up. Awake and alert, lethargic. Response to the moving all 4 extremities without any limitation. She remains on BiPAP at a pressure of 12/5 with an FiO2 of 50%. Generating a tidal volumes between 350 and 400 with a respiratory rate in the mid 20s. Abdomen is ventilation is around 8 L per minute. The patient has the chest tube still in place both the right pleural and mediastinal chest tube. The output has been 2 40 mL overnight over the past 12 hours and output is still bloody. She made minimal amount of urine output probably in the order of 50 mL all night. Hemodynamically stable. Off Agustín-Synephrine. She converted into sinus rhythm with a first-degree AV block. Chest x-ray showing some mild four-vessel congestion and all of the chest tubes are in place. Hemoglobin is at 8.5 with a platelet count of 25 and a coagulation profile shows an INR of 2.3 with a PT of 22.3 and a PTT of 32, lactic acid level is down to 1.8, BUN is 41 with a creatinine of 2.5 and a sodium of 136 with a potassium of 3.9. Glucose is 125. Shock liver is gradually improving and the AST is down to 4112 and ALT is down to 2017. She underwent hemodialysis yesterday without any major complications. He dialyzes catheter is still present in her right groin. No signs of any bleeding. No other issues for now. She is arousable. She follows commands and answers questions appropriately. No other significant events overnight. Note that her follow-up digoxin level was down to 2.1. She got transfused with platelets yesterday. Patient was reevaluated today on 01/01/2021, patient remains in the ICU, fully awake, alert, in no distress. Patient is on 3 L nasal cannula. She denies any shortness of breath, continues to have a right sided chest tube in place, she has mostly symptoms of surgical pain, and intermittent episodes of nausea. P atient is off pressors, she is in sinus rhythm with first-degree AV block, remains on IV Zosyn. Her labs were reviewed, platelets remained low at 63,000 BUN is 52 creatinine 3.31, INR is 1.8. Liver enzymes remain elevated. Urine output about 20 mL per hour overnight. She received dialysis yesterday for the third time. Chest x-ray today showed a left-sided pneumothorax and good sized left-sided pleural effusion, discussed this issue with thoracic surgery planned to observe for now, no plans for thoracentesis or chest tube placement. I prefer. Chest tube placement specially with her platelets being as low. Objective - Vital Signs Vital signs: Vital Signs Temp 97.5 F L 01/01/21 08:00 Pulse 79 01/01/21 10:00 Resp 16 01/01/21 10:00 BP 139/61 01/01/21 10:00 Pulse Ox 94 L 01/01/21 10:00 Intake & Output 12/31/20 01/01/21 01/01/21 18:59 06:59 18:59 Intake Total 582 776 254 Output Total 2240 337 120 Balance -1658 439 134 Weight 66.9 kg Intake: IV 582 726 224 0.9 30 80 40 D5.9 480 480 160 Zosyn 100 pressure bags 72 66 24 Oral 50 30 Output: Chest Tube Drainage 190 121 25 Right Pleural 90 121 25 Right Pleural/Mediastinal 100 Urine 50 216 95 Hemodialysis 1999 Other: Voiding Method Indwelling Catheter Indwelling Catheter Indwelling Catheter ABP, PAP, CO, CI - Last Documented Arterial Blood Pressure 121/60 Pulmonary Artery Pressure 12/5 Cardiac Output 4.2 Cardiac Index 2.6 - Exam Physical Exam: Revealed a 65-year-old female in no distress, on 3 L nasal cannula. Head: Atraumatic, normocephalic. HEENT:[Neck is supple.] [No neck masses.] [No thyromegaly.] [No JVD.] PERRLA, EOMI, nonicteric. Right internal jugular cordis noted in place. And she has a right femoral dialysis catheter Chest: [Symmetrical chest expansion, diminished breath sounds at the bases bilaterally. Right-sided chest tube noted, connected to wall suction, no air leak present. Had mostly 90 mL serosanguineous drainage overnight. And 300 mL in the last 24 hours. Cardiac Exam: [Normal S1 and S2, no S3 gallop, no murmur.] Abdomen: [Soft, nontender, no megaly, no rebound, no guarding, normal bowel sounds.] Extremities: [No clubbing, no edema, no cyanosis.] Neurological Exam: [No focal neurologic deficit.] Alert and oriented 3. Psychiatric: Normal mood, affect and normal mental status examination. Skin: No rashes. However the patient has a few areas of petechiae and ecchymosis in the right thigh - Labs CBC & Chem 7: 01/01/21 05:05 01/01/21 05:05 Labs: Abnormal Lab Results - Last 24 Hours (Table) 12/31/20 12/31/20 12/31/20 Range/Units 12:05 16:26 21:23 WBC (3.8-10.6) k/uL RBC (3.80-5.40) m/uL Hgb (11.4-16.0) gm/dL Hct (34.0-46.0) % RDW (11.5-15.5) % Plt Count (150-450) k/uL Neutrophils # (Manual) (1.3-7.7) k/uL Monocytes # (Manual) (0-1.0) k/uL Metamyelocytes # (Man) (0) k/uL Nucleated RBCs (0-0) /100 WBC PT (9.0-12.0) sec INR (<1.2) APTT (22.0-30.0) sec BUN (7-17) mg/dL Creatinine (0.52-1.04) mg/dL Glucose (74-99) mg/dL POC Glucose (mg/dL) 150 H 117 H 123 H (75-99) mg/dL Calcium (8.4-10.2) mg/dL Ionized Calcium Beatrice (4.5-5.3) mg/dL Total Bilirubin (0.2-1.3) mg/dL AST (14-36) U/L ALT (4-34) U/L Alkaline Phosphatase (38-126) U/L Total Protein (6.3-8.2) g/dL Albumin (3.5-5.0) g/dL 12/31/20 01/01/21 01/01/21 Range/Units 23:34 05:03 05:05 WBC 13.7 H (3.8-10.6) k/uL RBC 2.87 L (3.80-5.40) m/uL Hgb 9.1 L (11.4-16.0) gm/dL Hct 26.2 L (34.0-46.0) % RDW 15.7 H (11.5-15.5) % Plt Count 33 L (150-450) k/uL Neutrophils # (Manual) 10.55 H (1.3-7.7) k/uL Monocytes # (Manual) 1.92 H (0-1.0) k/uL Metamyelocytes # (Man) 0.27 H (0) k/uL Nucleated RBCs 2 H (0-0) /100 WBC PT (9.0-12.0) sec INR (<1.2) APTT (22.0-30.0) sec BUN (7-17) mg/dL Creatinine (0.52-1.04) mg/dL Glucose (74-99) mg/dL POC Glucose (mg/dL) 127 H 143 H (75-99) mg/dL Calcium (8.4-10.2) mg/dL Ionized Calcium Beatrice (4.5-5.3) mg/dL Total Bilirubin (0.2-1.3) mg/dL AST (14-36) U/L ALT (4-34) U/L Alkaline Phosphatase (38-126) U/L Total Protein (6.3-8.2) g/dL Albumin (3.5-5.0) g/dL 01/01/21 01/01/21 01/01/21 Range/Units 05:05 05:05 09:25 WBC (3.8-10.6) k/uL RBC (3.80-5.40) m/uL Hgb (11.4-16.0) gm/dL Hct (34.0-46.0) % RDW (11.5-15.5) % Plt Count (150-450) k/uL Neutrophils # (Manual) (1.3-7.7) k/uL Monocytes # (Manual) (0-1.0) k/uL Metamyelocytes # (Man) (0) k/uL Nucleated RBCs (0-0) /100 WBC PT 17.5 H (9.0-12.0) sec INR 1.8 H (<1.2) APTT 30.8 H (22.0-30.0) sec BUN 52 H (7-17) mg/dL Creatinine 3.31 H (0.52-1.04) mg/dL Glucose 127 H (74-99) mg/dL POC Glucose (mg/dL) 143 H (75-99) mg/dL Calcium 8.1 L (8.4-10.2) mg/dL Ionized Calcium Beatrice 4.4 L (4.5-5.3) mg/dL Total Bilirubin 11.1 H (0.2-1.3) mg/dL AST 2123 H (14-36) U/L ALT 1484 H (4-34) U/L Alkaline Phosphatase 128 H (38-126) U/L Total Protein 5.3 L (6.3-8.2) g/dL Albumin 3.3 L (3.5-5.0) g/dL Microbiology - Last 24 Hours (Table) 12/28/20 15:19 Blood Culture - Preliminary Blood No Growth after 72 hours Assessment and Plan Assessment: Impression: Status post aortic valve replacement and single-vessel bypass surgery postoperative day #6 Shock liver secondary to cardiogenic shock and severe metabolic acidosis secondary to cardiogenic shock, resolving. Coagulopathy secondary to shocked liver, doubt H IT syndrome. Hyperlipidemia. Hypothyroidism. History of CVA. Episodes of atrial flutter and RVR, presently in normal sinus rhythm. Spontaneous Left-sided pneumothorax, exact etiology is not clear, with left pleural effusion, thoracic surgery is aware, prefer to wait rather than chest tube placement or thoracentesis. Acute kidney injury and renal failure secondary to cardiogenic shock/cardiorenal, patient has been on hemodialysis 3, being followed by nephrology. 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 Recommendation: Continue present supportive care measures. In the meantime continue to hold aspirin and Plavix. Continue beta blockers. Titrate oxygen accordingly. Continue bronchodilators. Continue to monitor left-sided pneumothorax and pleural effusion for now. Continue insulin Continue GI and DVT prophylaxis. Hematology to evaluate for his coagulopathy and thrombocytopenia Consider removing the right-sided chest tube, may or may not require left-sided chest tube. We'll continue to follow. Time with Patient: Less than 30
[2021-01-01] MEDS: ONDANSETRON 4 MG/2 ML VIAL IVP PRN (11:01)
--- NOTE | 2021-01-01 11:09 | P.PN ---
Subjective Progress Note Date: 01/01/21 HISTORY OF PRESENT ILLNESS This is a 65-year-old female patient of Dr. 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 Patient underwent echocardiogram that revealed an ejection fraction of 55-60% with LVH, mild to moderate MR, bicuspid severely calcified aortic valve with moderate aortic regurgitation, moderate tricuspid regurgitation. The patient underwent cardiac julián terizationTEE for further evaluation. The cath showed right coronary artery stenosis in the order of 85% without any significant coronary artery disease. The transthoracic echocardiogram showed severe aortic stenosis. Patient underwent aortic valve replacement and one-vessel CABG with reverse saphenous vein graft off the aorta to the right coronary artery. Patient was admitted into the intensive care unit and was successfully extubated. She is seen today in the intensive care unit. She is up in a recliner. Foster-Kelli in place, mediastinal and right-sided chest tubes in place, Acevedo catheter in place. Patient denies having any chest pain. She states she is not feeling too bad today. She has a little nausea. No abdominal pain. She states she slept okay last night. She has been afebrile, heart rate 71, blood pressure 119/52, pulse ox 90% on 5 L nasal cannula. Blood work this morning reveals W BC 15.2, hemoglobin 8, platelet count 168. Electrolytes normal, BUN 19 and creatinine 0.78. Blood sugars running between 124 and 141. AST 167. Chest x-ray reveals small residual right apical pneumothorax may be present. Chest tubes pulled back slightly from comparison. Foster-Kelli catheter is somewhat peripheral and the right main pulmonary artery region. Cardiomegaly. Small left pleural effusion. 12/28: Patient remains in the intensive care unit. Patient has become hypoten sive with low urine output, elevated lactic acid, anemia, liver enzyme elevation and generalized anasarca. Patient is been started on dopamine, Primacor and is status post albumin and is status post 1 unit packed RBCs this morning. Urine output is improving. She is on BiPAP. Patient complains of generalized not feeling well and shortness of breath. Repeat CXR reports slight increase in mild left hilar and left basilar edema and/or atelectasis. Small pleural effusion. WBC 18.7, hemoglobin initially 6.8 and repeat a 0.1. Platelet count 124. INR 2.8. Electrolytes normal. BUN 32 and creatinine 1.53. Blood sugars running in the 140-170s. Total bilirubin 1.9, AST 1140, ALT 662, alkaline phosphatase 30. Amylase and lipase normal. 12/29: She remains in the intensive care unit. She has not been intubated. Her overall condition continues to decline and she is scheduled for dialysis catheter placement to start hemodialysis. She has had virtually no urine output despite being on Lasix drip patient also went into atrial fibrillation and started on digoxin. She remains with right pleural and mediastinal chest tubes are in place. Additional new diagnoses include A. fib with RVR, ischemic bowel suspected, bicytopenia. Patient is awake. She is complaining of chest discomfort. She is not have increased edema. Her temperature has been low down to 96.5. Heart rate 114, blood pressure 122/54, pulse ox 90%. WBC 14.6, hemoglobin 6, platelet count 26. INR 3.3. Electrolytes normal. BUN 53 and creatinine 2.77. Calcium 7.8. Ionized calcium 3.8. Total bilirubin 3, AST 11,442, ALT 3572, alkaline phosphatase 41. She has been ordered for plasma, platelets and RBC transfusions. 12/30: Patient is currently on BiPAP. She had dialysis catheter placed by vascular surgeon yesterday and underwent her first hemodialysis with removal of 3 L. She has had no urine output overnight. She remains with chest tubes in place. Acevedo catheter is in place. Repeat blood work reveals W BC 13.3, hemoglobin 9, platelet count 24. She is scheduled for platelet transfusion today. INR 2.6. BUN 33 creatinine 2.18. Blood sugars are running between 110 and 138. Magnesium 2.2. Potassium 4.3. Total bilirubin 5.0, AST 8066, ALT 2707, alkaline phosphatase 74. Digoxin level II.9. Patient not currently on digoxin. 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 She has been afebrile, heart rate in the 80s, blood pressure 138/52, pulse ox 93%. Cultures no growth at 24 hours. 12/31: Patient is scheduled for repeat dialysis today. She has had 15 mL output overnight of urine. Patient complains of nausea. Reglan changed to scheduled. She states she's had some ice chips. Patient is awake and alert but thinks it's June 2021. She did have a bowel movement this morning. Patient has been afebrile, heart rate in the 80s and 90s, blood pressure 145/72, pulse ox 97% on BiPAP. Repeat blood work reveals WBC 9.7, hemoglobin 8.5, platelet count 25. No plan for platelet transfusion today. INR is 2.3. Sodium 136 otherwise electrolytes are normal. BUN 41 and creatinine 2.58. Ionized calcium 4.1, total bilirubin 7.6, AST 4112, ALT 2017, alkaline phosphatase 94. Blood sugars are running between 96 and 136. PICC line is ordered for tomorrow. 01/01: Patient remains in the intensive care unit. She is now off BiPAP. Patient is starting to make urine at 15-20 mL per hour. Liver function tests are improving. She states that she is feeling a little nausea that comes and goes. She does have Zofran available and Reglan has been changed to when necess patrice. Pulse ox 93% on 3 L nasal cannula, blood pressure 163/75, heart rate 80s, afebrile. WBC 13.7, hemoglobin 9.1, platelet count 33. INR 1.8. Electrolytes normal. BUN 52 and creatinine 3.31. Blood sugars are running between 123 and 143. Ionized calcium 4.4, total bilirubin 11.1, AST 2123, ALT 1484, alkaline phosphatase 128. Chest x-ray reveals diminished lung volumes suspect worsening pulmonary vascular congestion. Increased moderate left pleural effusion with adjacent atelectasis and/or consolidation. Fine linear density projecting across the left apex suspected artifact rather than small pneumothorax. Ultrasound of the chest revealed left pleural effusion pocket 10.4 cm. Patient is status post calcium gluconate. Metoprolol increased to 25 mg twice daily. Patient is off antibiotics. REVIEW OF SYSTEMS Constitutional: No fever, no chills, no night sweats. No weight change. Reports generalized weakness, reports fatigue reports lethargy. No daytime sleepiness. EENT: No headache. No change in vision, no loss of vision. No loss of Hearing, no dizziness. No nasal drainage or congestion. No epistaxis. No sore throat. Lungs: Reports shortness of breath, cough, no sputum production. No wheezing. Cardiovascular: Reports chest discomfort, reports lower extremity edema. Reports generalized edema. No palpitations. No paroxysmal nocturnal dyspnea. No orthopnea. No lightheadedness or dizziness. No syncopal episodes. Abdominal: No abdominal pain. Reports intermittent nausea, denies vomiting. No diarrhea. No constipation. No bloody or tarry stools.. No loss of appetite. Genitourinary: No dysuria, increased frequency, urgency. No urinary retention. Musculoskeletal: No myalgias. Reports muscle weakness, no gait dysfunction, no frequent falls. No back pain. No neck pain. Integumentary: No wounds, no lesions. No rash or pruritus. Neurologic: No aphasia. No facial droop. No change in mentation. No head injury. No headache. No paralysis. No paresthesia. Psychiatric: No depression. No anxiety. Endocrine: Reports abnormal blood sugars. PHYSICAL EXAMINATION Gen: This paradise 65-year-old female. She is resting in ICU bed, she is on nasal cannula, appears to be comfortable at rest. HEENT: Head is atraumatic, normocephalic. Pupils equal, round. Sclerae is icteric. NECK: Supple. No JVD. No lymphadenopathy. No thyromegaly. Right-sided Cordis in place. LUNGS: Diminished bilaterally. No wheezes or rhonchi. No intercostal retractions. Right pleural chest tube in place. HEART: Regular rate and rhythm. No murmur. ABDOMEN: Soft. Bowel sounds are present. No masses. No tenderness. Acevedo catheter in place. EXTREMITIES: Mild generalized pedal edema. No calf tenderness. Dorsalis pedis palpable bilaterally. NEUROLOGICAL: Patient is awake, alert and oriented x3. Cranial nerves 2 through 12 are grossly intact. ASSESSMENT AND PLAN 1. Aortic valve replacement for bicuspid valve with moderate aortic regurgitation and single-vessel CABG with CVG to RCA. Patient is postop day # 6. She has been successfully extubated and now on nasal cannula. Continue current management per cardiothoracic surgery. 2. Rule out cardiogenic shock. Currently stable. 3. Transaminitis secondary to hypoperfusion and shock liver, improving. Continue to monitor liver function tests and INR. 4. Acute blood loss anemia, expected following surgery. Repeat transfusion today. 5. Lactic acidosis secondary to hyperperfusion, improving. 6. A. fib with RVR, paroxysmal atrial fibrillation, converted to sinus rhythm. 7. Possible ischemic bowel. 8. Bicytopenia with thrombocytopenia and anemia. Status post total transfusion of 5 units of platelets, 4 units of fresh frozen plasma, 4 units of packed RBCs. 9. Acute renal failure requiring dialysis. Patient started hemodialysis on December 29. 10. Acute hypoxic respiratory failure requiring BiPAP. Patient is on nasal cannula. 11. SIRS with multiorgan failure. Continue current management. 12. Hypertension. Patient is currently hypotensive. 13. Hyperlipidemia. 14. History of CVA 2. 15. Hypothyroidism. Continue levothyroxine 25 g daily. 16. Recurrent depression. Continue Zoloft 25 mg at bedtime. 17. Degenerative disc disease. 18. GI prophylaxis. Protonix 40 mg IV push twice daily. 19. DVT prophylaxis. Off heparin due to thrombocytopenia DISCHARGE PLAN TBD. Impression and plan of care have been directed as dictated by the signing phys bjorn. Donna Gutierrez nurse practitioner acting as scribe for signing physician. Objective - Vital Signs Vital signs: Vital Signs Temp 97.5 F L 01/01/21 08:00 Pulse 81 01/01/21 09:00 Resp 19 01/01/21 09:00 BP 155/78 01/01/21 09:00 Pulse Ox 93 L 01/01/21 09:00 Intake & Output 12/31/20 01/01/21 01/01/21 18:59 06:59 18:59 Intake Total 582 776 198 Output Total 2240 337 85 Balance -1658 439 113 Weight 66.9 kg Intake: IV 582 726 168 0.9 30 80 30 D5.9 480 480 120 Zosyn 100 pressure bags 72 66 18 Oral 50 30 Output: Chest Tube Drainage 190 121 20 Right Pleural 90 121 20 Right Pleural/Mediastinal 100 Urine 50 216 65 Hemodialysis 1999 Other: Voiding Method Indwelling Catheter Indwelling Catheter Indwelling Catheter ABP, PAP, CO, CI - Last Documented Arterial Blood Pressure 147/72 Pulmonary Artery Pressure 12/5 Cardiac Output 4.2 Cardiac Index 2.6 - Labs CBC & Chem 7: 01/01/21 05:05 01/01/21 05:05 Labs: Abnormal Lab Results - Last 24 Hours (Table) 12/31/20 12/31/20 12/31/20 Range/Units 12:05 16:26 21:23 WBC (3.8-10.6) k/uL RBC (3.80-5.40) m/uL Hgb (11.4-16.0) gm/dL Hct (34.0-46.0) % RDW (11.5-15.5) % Plt Count (150-450) k/uL Neutrophils # (Manual) (1.3-7.7) k/uL Monocytes # (Manual) (0-1.0) k/uL Metamyelocytes # (Man) (0) k/uL Nucleated RBCs (0-0) /100 WBC PT (9.0-12.0) sec INR (<1.2) APTT (22.0-30.0) sec BUN (7-17) mg/dL Creatinine (0.52-1.04) mg/dL Glucose (74-99) mg/dL POC Glucose (mg/dL) 150 H 117 H 123 H (75-99) mg/dL Calcium (8.4-10.2) mg/dL Ionized Calcium Beatrice (4.5-5.3) mg/dL Total Bilirubin (0.2-1.3) mg/dL AST (14-36) U/L ALT (4-34) U/L Alkaline Phosphatase (38-126) U/L Total Protein (6.3-8.2) g/dL Albumin (3.5-5.0) g/dL 12/31/20 01/01/21 01/01/21 Range/Units 23:34 05:03 05:05 WBC 13.7 H (3.8-10.6) k/uL RBC 2.87 L (3.80-5.40) m/uL Hgb 9.1 L (11.4-16.0) gm/dL Hct 26.2 L (34.0-46.0) % RDW 15.7 H (11.5-15.5) % Plt Count 33 L (150-450) k/uL Neutrophils # (Manual) 10.55 H (1.3-7.7) k/uL Monocytes # (Manual) 1.92 H (0-1.0) k/uL Metamyelocytes # (Man) 0.27 H (0) k/uL Nucleated RBCs 2 H (0-0) /100 WBC PT (9.0-12.0) sec INR (<1.2) APTT (22.0-30.0) sec BUN (7-17) mg/dL Creatinine (0.52-1.04) mg/dL Glucose (74-99) mg/dL POC Glucose (mg/dL) 127 H 143 H (75-99) mg/dL Calcium (8.4-10.2) mg/dL Ionized Calcium Beatrice (4.5-5.3) mg/dL Total Bilirubin (0.2-1.3) mg/dL AST (14-36) U/L ALT (4-34) U/L Alkaline Phosphatase (38-126) U/L Total Protein (6.3-8.2) g/dL Albumin (3.5-5.0) g/dL 01/01/21 01/01/21 01/01/21 Range/Units 05:05 05:05 09:25 WBC (3.8-10.6) k/uL RBC (3.80-5.40) m/uL Hgb (11.4-16.0) gm/dL Hct (34.0-46.0) % RDW (11.5-15.5) % Plt Count (150-450) k/uL Neutrophils # (Manual) (1.3-7.7) k/uL Monocytes # (Manual) (0-1.0) k/uL Metamyelocytes # (Man) (0) k/uL Nucleated RBCs (0-0) /100 WBC PT 17.5 H (9.0-12.0) sec INR 1.8 H (<1.2) APTT 30.8 H (22.0-30.0) sec BUN 52 H (7-17) mg/dL Creatinine 3.31 H (0.52-1.04) mg/dL Glucose 127 H (74-99) mg/dL POC Glucose (mg/dL) 143 H (75-99) mg/dL Calcium 8.1 L (8.4-10.2) mg/dL Ionized Calcium Beatrice 4.4 L (4.5-5.3) mg/dL Total Bilirubin 11.1 H (0.2-1.3) mg/dL AST 2123 H (14-36) U/L ALT 1484 H (4-34) U/L Alkaline Phosphatase 128 H (38-126) U/L Total Protein 5.3 L (6.3-8.2) g/dL Albumin 3.3 L (3.5-5.0) g/dL Microbiology - Last 24 Hours (Table) 12/28/20 15:19 Blood Culture - Preliminary Blood No Growth after 72 hours
--- NOTE | 2021-01-01 12:29 | P.PN ---
Subjective Progress Note Date: 01/01/21 HISTORY OF PRESENT ILLNESS: 12/27/2020 This is a 65-year-old female with a past medical history significant for CVA/TIA, hypertension, hyperlipidemia, nicotine dependence, and hypothyroidism. Patient follows in the office with Dr. Lee. We have been asked to see the patient in consultation for postoperative care. Patient examined this morning in the intensive care unit. Patient is status post aortic valve replacement and CABG 1: SVG to RCA. Postop day #1. Patient is sitting up in the chair. Patient is hemodynamically stable and not requiring any vasopressor support. Patient is on 5 L nasal cannula with oxygen saturations greater than 92%. The patient has a weak nonproductive cough. She denies chest pain or pressure. She denies shortness of breath. She reports nausea this morning. No episodes of emesis. She is receiving 500cc albumin at the time of examination. Telemetry reveals sinus mechanism. Chest xray small residual right apical pneumothorax may be present. Cardiomegaly. Small left pleural effusion. Laboratory data: WBC 15.2. Hemoglobin 8.0. Platelet count 160. Sodium 137. Potassium 4.8. BUN 19. Creatinine 0.78. Magnesium 2.2. Current home cardiac medications include amlodipine 5 mg daily, metoprolol tartrate 12.5 mg twice a day, Lipitor 40 mg daily, and aspirin 81 mg daily FIDEL: 12/15/2020 revealing severe aortic stenosis which is calcific in nature with mild eccentric aortic regurgitation. Mild mitral and tricuspid regurgitation. Biatrial enlargement. No clot in left atrial appendage. No PFO. Normal LV function. Cardiac catheterization: 12/15/2020 revealing 80% lesion of RCA. 12/28/2020 Patient is s/p CABG x 1 and AVR. POD #1. Patient examined this morning in the ICU. Patient developed hypotension, lactic acidosis, shortness of breath, and increasing oxygen requirement overnight. Patient was placed on a BiPAP. She received sodium bicarb. She is currently on dopamine and Primacor. Hemoglobin is 6.8. Patient received 1 unit packed RBCs. Blood pressure 102/39. Heart rate in the 70s. 12/29/2020 Patient examined this morning in the intensive care unit. Patient remains on a bipap. Overnight, the patient had decreased urine output. Patient was given IV lasix and subsequently started on a lasix drip. Patient with worsening hypotension and has been started on vasopressors. Patient also went into afib with RVR this morning. She has been started on Digoxin. Hemoglobin 6.0. Platelet count 26. INR 3.3. BUN 53. Creatinine 2.77. AST 11,442. ALT 3572. Patient is to receive a hemodialysis catheter today and will be started on hemodialysis. 12/30/2020 Patient examined this morning in the intensive care unit. She remains on a BiPAP. patient states her breathing has improved this morning. Patient is curre ntly maintaining sinus mechanism on telemetry. Patient underwent hemodialysis yesterday with removal of 3 L. she is also receiving hemodialysis again this morning. She remains on vasopressor support with Agustín-Synephrine. Hemoglobin 9.0. Platelet count 24. BUN 33. Creatinine 2.18. AST 8066. ALT 2707. 12/31/2020 Patient examined this morning in the intensive care unit. Patient remains on a BiPAP. Patient is awake and alert. Patient remains in sinus mechanism on telemetry. Patient's vasopressors have been weaned off. Patient received hemodialysis for the second time yesterday. Hemoglobin 8.5. Platelet count 25. INR 2.3. BUN 41. Creatinine 2.56. AST 4112. ALT 2118. 01/01/2021 Patient examined this morning. She remains in intensive care unit. Patient has been weaned off BiPAP to nasal cannula. She denies chest pain or pressure. Denies shortness of breath. Patient remains off vasopressors. She received hemodialysis yesterday for the third time. Creatinine 3.31 today. BUN 52. LFTs are trending downward. AST 2123. ALT 1484. INR 1.8. Hemoglobin 9.1. Platelet count 33. She remains in sinus mechanism. Chest x-ray completed this morning revealed diminished lung volumes and suspected worsening pulmonary vascular congestion. Increasing moderate left pleural effusion with adjacent atelectasis and/or consolidation. Fine linear density projecting across the left apex, suspected external artifact rather than a small pneumothorax. Short interval follow-up recommended to reassess. PHYSICAL EXAM: VITAL SIGNS: Reviewed. GENERAL: Well-developed in no acute distress. HEENT: Head is normocephalic. Pupils are equal, round. Sclerae anicteric. Mucous membranes of the mouth are moist. Neck supple. No JVD or thyromegaly LUNGS: Respirations even and unlabored. Lungs diminished bilaterally. HEART: Regular rate and rhythm. S1 and S2 heard. Chest tube noted with no evidence of air leak. Heart hugger noted. EXTREMITIES: Normal range of motion. No clubbing or cyanosis. Peripheral pulses intact. Trace bilateral lower extremity edema ASSESSMENT: Severe aortic stenosis, s/p bioprosthetic aortic valve replacement, 12/26/2020 Coronary artery disease, s/p CABG x 1 SVG to RCA, 12/26/2020 New onset paroxysmal atrial fibrillation with RVR, currently maintaining sinus mechanism Acute hypoxic respiratory failure, requiring bipap Thrombocytopenia Coagulopathy, INR 3.3, improving Acute blood loss anemia Lactic acidosis Transaminitis, suspect secondary to hypotension Acute kidney injury Hypertension Hyperlipidemia CVA with residual right-sided blindness Hypothyroidism Former nicotine dependence PLAN: Continue postoperative management per CTS Continue telemetry monitoring Statin held due to elevated LFTs Aspirin and Plavix remain on hold Beta kiki increased to 25mg BID Monitor hemoglobin Hematology following for thrombocytopenia Nephrology following. Further recommendations pending patient course Nurse practitioner note has been reviewed by physician. Signing provider agrees with the documented findings, assessment, and plan of care. Objective - Vital Signs Vital signs: Vital Signs Temp 97.6 F 01/01/21 12:00 Pulse 74 01/01/21 12:00 Resp 16 01/01/21 12:00 BP 156/75 01/01/21 12:00 Pulse Ox 95 01/01/21 12:00 Intake & Output 12/31/20 01/01/21 01/01/21 18:59 06:59 18:59 Intake Total 582 776 306 Output Total 2240 337 245 Balance -1658 439 61 Weight 66.9 kg Intake: IV 582 726 276 0.9 30 80 60 D5.9 480 480 180 Zosyn 100 pressure bags 72 66 36 Oral 50 30 Output: Chest Tube Drainage 190 121 40 Right Pleural 90 121 40 Right Pleural/Mediastinal 100 Urine 50 216 205 Hemodialysis 1999 Other: Voiding Method Indwelling Catheter Indwelling Catheter Indwelling Catheter ABP, PAP, CO, CI - Last Documented Arterial Blood Pressure 125/63 Pulmonary Artery Pressure 12/5 Cardiac Output 4.2 Cardiac Index 2.6 - Labs CBC & Chem 7: 01/01/21 05:05 01/01/21 05:05 Labs: Abnormal Lab Results - Last 24 Hours (Table) 12/31/20 12/31/20 12/31/20 Range/Units 16:26 21:23 23:34 WBC (3.8-10.6) k/uL RBC (3.80-5.40) m/uL Hgb (11.4-16.0) gm/dL Hct (34.0-46.0) % RDW (11.5-15.5) % Plt Count (150-450) k/uL Neutrophils # (Manual) (1.3-7.7) k/uL Monocytes # (Manual) (0-1.0) k/uL Metamyelocytes # (Man) (0) k/uL Nucleated RBCs (0-0) /100 WBC PT (9.0-12.0) sec INR (<1.2) APTT (22.0-30.0) sec BUN (7-17) mg/dL Creatinine (0.52-1.04) mg/dL Glucose (74-99) mg/dL POC Glucose (mg/dL) 117 H 123 H 127 H (75-99) mg/dL Calcium (8.4-10.2) mg/dL Ionized Calcium Beatrice (4.5-5.3) mg/dL Total Bilirubin (0.2-1.3) mg/dL AST (14-36) U/L ALT (4-34) U/L Alkaline Phosphatase (38-126) U/L Total Protein (6.3-8.2) g/dL Albumin (3.5-5.0) g/dL 01/01/21 01/01/21 01/01/21 Range/Units 05:03 05:05 05:05 WBC 13.7 H (3.8-10.6) k/uL RBC 2.87 L (3.80-5.40) m/uL Hgb 9.1 L (11.4-16.0) gm/dL Hct 26.2 L (34.0-46.0) % RDW 15.7 H (11.5-15.5) % Plt Count 33 L (150-450) k/uL Neutrophils # (Manual) 10.55 H (1.3-7.7) k/uL Monocytes # (Manual) 1.92 H (0-1.0) k/uL Metamyelocytes # (Man) 0.27 H (0) k/uL Nucleated RBCs 2 H (0-0) /100 WBC PT 17.5 H (9.0-12.0) sec INR 1.8 H (<1.2) APTT 30.8 H (22.0-30.0) sec BUN (7-17) mg/dL Creatinine (0.52-1.04) mg/dL Glucose (74-99) mg/dL POC Glucose (mg/dL) 143 H (75-99) mg/dL Calcium (8.4-10.2) mg/dL Ionized Calcium Beatrice (4.5-5.3) mg/dL Total Bilirubin (0.2-1.3) mg/dL AST (14-36) U/L ALT (4-34) U/L Alkaline Phosphatase (38-126) U/L Total Protein (6.3-8.2) g/dL Albumin (3.5-5.0) g/dL 01/01/21 01/01/21 Range/Units 05:05 09:25 WBC (3.8-10.6) k/uL RBC (3.80-5.40) m/uL Hgb (11.4-16.0) gm/dL Hct (34.0-46.0) % RDW (11.5-15.5) % Plt Count (150-450) k/uL Neutrophils # (Manual) (1.3-7.7) k/uL Monocytes # (Manual) (0-1.0) k/uL Metamyelocytes # (Man) (0) k/uL Nucleated RBCs (0-0) /100 WBC PT (9.0-12.0) sec INR (<1.2) APTT (22.0-30.0) sec BUN 52 H (7-17) mg/dL Creatinine 3.31 H (0.52-1.04) mg/dL Glucose 127 H (74-99) mg/dL POC Glucose (mg/dL) 143 H (75-99) mg/dL Calcium 8.1 L (8.4-10.2) mg/dL Ionized Calcium Beatrice 4.4 L (4.5-5.3) mg/dL Total Bilirubin 11.1 H (0.2-1.3) mg/dL AST 2123 H (14-36) U/L ALT 1484 H (4-34) U/L Alkaline Phosphatase 128 H (38-126) U/L Total Protein 5.3 L (6.3-8.2) g/dL Albumin 3.3 L (3.5-5.0) g/dL Microbiology - Last 24 Hours (Table) 12/28/20 15:19 Blood Culture - Preliminary Blood No Growth after 72 hours
--- NOTE | 2021-01-01 13:42 | PN ---
PROGRESS NOTE Patient is seen for followup for acute kidney injury associated with hypotension hypoperfusion post coronary artery bypass surgery. Urine output has picked up. Patient has received 3 treatments of dialysis. Her volume status is much improved. This morning, urine output is at about 20-30 mL an hour. Chest x-ray however she continues to show significant pulmonary vascular congestion. PHYSICAL EXAMINATION: On examination today, blood pressure was 146/67, heart rate 80 per minute. Patient is afebrile. EXAMINATION OF THE HEART: S1, S2. EXAMINATION OF LUNGS: Decreased breath sounds at bases. Basal crackles are heard. Abdomen is soft. Examination of lower extremities shows trace edema bilaterally. LABS: Labs show sodium 138, potassium 4.0, BUN 52, creatinine 3.3, hemoglobin 9.1 g/dL. ASSESSMENT: 1. Acute kidney injury, acute tubular necrosis, mostly ischemic, post coronary artery bypass surgery, currently nonoliguric with some improvement in urine output. Patient has had 3 treatments of dialysis. She will be scheduled for a 4th treatment today, although it will only be a 2 hour treatment mostly for UF. Since urine output has improved, we will likely hold off on dialysis tomorrow if she remains stable volume lundberg. 2. Status post coronary artery bypass surgery and bioprosthetic aortic valve replacement on 12/26/2020. 3. Shock liver, currently improving. 4. Congestive heart failure, volume overload, currently improved. PLAN: Repeat IV Lasix x1 today and hemodialysis today for about 2 hours with UF of about 2 L. We will try to hold off on dialysis tomorrow if the patient is stable in terms of her volume status. MMODL / IJN: [id number] /
[2021-01-01 13:44] LABS: Glucose,Whole Blood 130 mg/dL (75-99)
[2021-01-01 16:06] LABS: Glucose,Whole Blood 116 mg/dL (75-99)
--- NOTE | 2021-01-01 20:26 | P.PN ---
Subjective Progress Note Date: 01/01/21 Principal diagnosis: Cytopenia PLatelets 30K, remain in safe range as long as no s/s bleeding. INR 1.8 coagulaopathy improving. Hemoglobin stable, remains in the care of ICU Objective - Vital Signs Vital signs: Vital Signs Temp 97.1 F L 01/01/21 18:11 Pulse 85 01/01/21 19:00 Resp 17 01/01/21 19:00 BP 130/72 01/01/21 19:00 Pulse Ox 97 01/01/21 19:00 Intake & Output 01/01/21 01/01/21 01/02/21 06:59 18:59 06:59 Intake Total 776 460 13 Output Total 337 4795 30 Balance 188 -3716 -76 Weight 66.9 kg 66.9 kg Intake: IV 726 380 13 0.9 80 80 D5.9 480 240 10 Zosyn 100 pressure bags 66 60 3 Oral 50 80 Output: Chest Tube Drainage 121 75 0 Right Pleural 121 75 0 Urine 216 500 30 Hemodialysis 2300 Other: Voiding Method Indwelling Catheter Indwelling Catheter ABP, PAP, CO, CI - Last Documented Arterial Blood Pressure 142/69 Pulmonary Artery Pressure 12/5 Cardiac Output 4.2 Cardiac Index 2.6 - Labs CBC & Chem 7: 01/01/21 05:05 01/01/21 05:05 Labs: Abnormal Lab Results - Last 24 Hours (Table) 12/31/20 12/31/20 01/01/21 Range/Units 21:23 23:34 05:03 WBC (3.8-10.6) k/uL RBC (3.80-5.40) m/uL Hgb (11.4-16.0) gm/dL Hct (34.0-46.0) % RDW (11.5-15.5) % Plt Count (150-450) k/uL Neutrophils # (Manual) (1.3-7.7) k/uL Monocytes # (Manual) (0-1.0) k/uL Metamyelocytes # (Man) (0) k/uL Nucleated RBCs (0-0) /100 WBC PT (9.0-12.0) sec INR (<1.2) APTT (22.0-30.0) sec BUN (7-17) mg/dL Creatinine (0.52-1.04) mg/dL Glucose (74-99) mg/dL POC Glucose (mg/dL) 123 H 127 H 143 H (75-99) mg/dL Calcium (8.4-10.2) mg/dL Ionized Calcium Beatrice (4.5-5.3) mg/dL Total Bilirubin (0.2-1.3) mg/dL AST (14-36) U/L ALT (4-34) U/L Alkaline Phosphatase (38-126) U/L Total Protein (6.3-8.2) g/dL Albumin (3.5-5.0) g/dL 01/01/21 01/01/21 01/01/21 Range/Units 05:05 05:05 05:05 WBC 13.7 H (3.8-10.6) k/uL RBC 2.87 L (3.80-5.40) m/uL Hgb 9.1 L (11.4-16.0) gm/dL Hct 26.2 L (34.0-46.0) % RDW 15.7 H (11.5-15.5) % Plt Count 33 L (150-450) k/uL Neutrophils # (Manual) 10.55 H (1.3-7.7) k/uL Monocytes # (Manual) 1.92 H (0-1.0) k/uL Metamyelocytes # (Man) 0.27 H (0) k/uL Nucleated RBCs 2 H (0-0) /100 WBC PT 17.5 H (9.0-12.0) sec INR 1.8 H (<1.2) APTT 30.8 H (22.0-30.0) sec BUN 52 H (7-17) mg/dL Creatinine 3.31 H (0.52-1.04) mg/dL Glucose 127 H (74-99) mg/dL POC Glucose (mg/dL) (75-99) mg/dL Calcium 8.1 L (8.4-10.2) mg/dL Ionized Calcium Beatrice 4.4 L (4.5-5.3) mg/dL Total Bilirubin 11.1 H (0.2-1.3) mg/dL AST 2123 H (14-36) U/L ALT 1484 H (4-34) U/L Alkaline Phosphatase 128 H (38-126) U/L Total Protein 5.3 L (6.3-8.2) g/dL Albumin 3.3 L (3.5-5.0) g/dL 01/01/21 01/01/21 01/01/21 Range/Units 09:25 13:42 16:05 WBC (3.8-10.6) k/uL RBC (3.80-5.40) m/uL Hgb (11.4-16.0) gm/dL Hct (34.0-46.0) % RDW (11.5-15.5) % Plt Count (150-450) k/uL Neutrophils # (Manual) (1.3-7.7) k/uL Monocytes # (Manual) (0-1.0) k/uL Metamyelocytes # (Man) (0) k/uL Nucleated RBCs (0-0) /100 WBC PT (9.0-12.0) sec INR (<1.2) APTT (22.0-30.0) sec BUN (7-17) mg/dL Creatinine (0.52-1.04) mg/dL Glucose (74-99) mg/dL POC Glucose (mg/dL) 143 H 130 H 116 H (75-99) mg/dL Calcium (8.4-10.2) mg/dL Ionized Calcium Beatrice (4.5-5.3) mg/dL Total Bilirubin (0.2-1.3) mg/dL AST (14-36) U/L ALT (4-34) U/L Alkaline Phosphatase (38-126) U/L Total Protein (6.3-8.2) g/dL Albumin (3.5-5.0) g/dL Microbiology - Last 24 Hours (Table) 12/28/20 15:19 Blood Culture - Preliminary Blood No Growth after 96 hours Assessment and Plan Plan: Assessment and recommendations: Coagulopathy: - Improving - COntinue daily monitoring. Anemia: - Possibly secondary to above although assess for blood loss, hemolysis (ordered) - CBC closely monitor, transfuse less than 7 - Stable 9.1 today Thrmobocytopenia: - HIT antibodies neg - Keep greater than 10K unless s/s bleeding greater than 50K Increased LFTs: - Shock liver - Slow improvement - Contiue montioring In ICU care further recs to follow
[2021-01-01] MEDS: METOCLOPRAMIDE 5 MG/ML 2 ML VIAL IVP PRN (21:49)
[2021-01-01] MEDS: SENNOSIDES-DOCUSATE SODIUM 1 EACH TAB PO SCH (21:49)
[2021-01-01] MEDS: METOPROLOL TARTRATE 25 MG TAB PO SCH (21:52)
[2021-01-01] MEDS: SERTRALINE 25 MG TAB PO SCH (21:52)
[2021-01-01] MEDS: LEVOTHYROXINE 25 MCG TAB PO SCH (21:52)
[2021-01-02] MEDS: fentaNYL (PF) 50 MCG/ML 2 ML AMP IVP PRN (02:07)
[2021-01-02] MEDS: ONDANSETRON 4 MG/2 ML VIAL IVP PRN ×2 (02:08→18:16)
[2021-01-02 04:34] LABS: Glucose,Whole Blood 115 mg/dL (75-99)
[2021-01-02 04:53] LABS: Anisocytosis Slight; Basophils % (A) 0 %; Eosinophils # (A) 0.1 k/uL (0-0.7); Eosinophils % (A) 1 %; HCT 29.6 % (34.0-46.0); HGB 9.9 gm/dL (11.4-16.0); Lymphocytes # (A) 0.7 k/uL (1.0-4.8); Lymphocytes % (A) 4 %; MCH 30.7 pg (25.0-35.0); MCHC 33.5 g/dL (31.0-37.0); MCV 91.9 fL (80.0-100.0); Mean Platelet Volume 10.7; Monocytes # (A) 1.8 k/uL (0-1.0); Monocytes % (A) 9 %; Neutrophils # (A) 15.3 k/uL (1.3-7.7); Neutrophils % (A) 83 %; Poikilocytosis Slight; RBC 3.23 m/uL (3.80-5.40); RDW 16.2 % (11.5-15.5); WBC 18.5 k/uL (3.8-10.6)
[2021-01-02 05:14] LABS: Platelet Count 62 k/uL (150-450)
[2021-01-02 05:29] LABS: INR 1.4 (<1.2); Partial Thromboplastin Time 25.8 sec (22.0-30.0); Prothrombin Time 14.2 sec (9.0-12.0)
[2021-01-02 05:38] LABS: Ionized Calcium 4.5 mg/dL (4.5-5.3)
[2021-01-02 06:08] LABS: Albumin 3.4 g/dL (3.5-5.0); Calcium 8.6 mg/dL (8.4-10.2); Potassium 3.8 mmol/L (3.5-5.1); Total Bilirubin 11.1 mg/dL (0.2-1.3); Total Protein 5.5 g/dL (6.3-8.2)
[2021-01-02] MEDS: IPRATROPIUM-ALBUTEROL 3 ML NEB INHALATION SCH ×4 (07:05→22:08)
[2021-01-02] MEDS: DEXTROSE 5%-0.9% NACL 1,000 ML IV SCH (07:28)
--- NOTE | 2021-01-02 07:41 | P.PN ---
Subjective Progress Note Date: 01/02/21 Principal diagnosis: Severe bicuspid aortic valve stenosis, coronary artery disease. 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, right internal carotid artery stenosis 50-79% per Doppler, previous tobacco dependence with moderate obstructive lung disease and preoperative FEV1 56% of predicted, preoperative elevation of AST and ALT, degenerative arthritis with chronic back pain, and fam chato history of colon cancer POD #7 aortic valve replacement with #21 mm Jackson Inspiris bioprosthetic aortic valve, coronary artery bypass grafting 1 with reverse saphenous vein graft off the aorta to the right coronary artery, clip ligation of the left atrial appendage with a 35 mm AtriClip, intraoperative transesophageal echocardiogram. Postoperative acute blood loss anemia, expected secondary to hemodilution and cardiopulmonary bypass pump, status post PRBC transfusion Hypotension requiring pressor use, currently off pressors Acute kidney injury secondary to hypoperfusion requiring initiation of dialysis Shock liver secondary to hypoperfusion, improving Lactic acidosis secondary to hypoperfusion, resolved Hypoxic respiratory failure requiring BiPAP, currently on nasal cannula Thrombocytopenia, improving A. fib with RVR, known common occurrence after open heart surgery Coagulopathy with DIC, improving The patient was seen and examined this morning the intensive care unit. She is currently sitting up in a recliner in no acute distress. She does continue to complain of post surgical pain which is relieved with IV fentanyl, although nursing is reporting the fentanyl is making her increasingly sleepy. States her nausea is somewhat better this morning although still present. She remains on nasal cannula, currently at 3 L with oxygen saturation in the mid 90s. Her blood pressure stable off pressors, in fact has been steadily increasing. Currently in controlled atrial fibrillation. WBC 18.5, hemoglobin 9.9, platelet count 62,000, BUN 66, creatinine 3.37, INR 1.4, AST 1204, ALT 1176, HIT panel negative. No evidence of active bleeding. Urine output has picked up at 50-100 mL/h overnight. She received dialysis yesterday for the fourth time. Nephrology and hematology on board, continue to monitor. Her abdomen remains soft but tender to palpation, she has had a bowel movement. Epicardial pacemaker wires, right pleural chest tube, right radial arterial line, right femoral dialysis catheter all remain. Family continues to be updated daily Objective - Vital Signs Vital signs: Vital Signs Temp 97.4 F L 01/02/21 04:00 Pulse 76 01/02/21 07:17 Resp 17 01/02/21 07:00 BP 163/107 01/02/21 07:00 Pulse Ox 97 01/02/21 07:00 Intake & Output 01/01/21 01/02/21 01/02/21 18:59 06:59 18:59 Intake Total 460 156 13 Output Total 2875 870 50 Balance -2415 -714 -37 Weight 66.9 kg 64.4 kg Intake: IV 380 156 13 0.9 80 D5.9 240 120 10 pressure bags 60 36 3 Oral 80 Output: Chest Tube Drainage 75 80 Right Pleural 75 80 Urine 500 790 50 Hemodialysis 2300 Other: Voiding Method Indwelling Catheter Indwelling Catheter ABP, PAP, CO, CI - Last Documented Arterial Blood Pressure 164/68 Pulmonary Artery Pressure 12/5 Cardiac Output 4.2 Cardiac Index 2.6 - Exam CONSTITUTIONAL: Appears comfortable, cooperative, sleepy RESPIRATORY: Lungs sounds diminished bilaterally, left greater than right. Respirations even, nonlabored. Currently on 3 L nasal cannula with oxygen saturation mid 90s. Strong nonproductive cough. Able to achieve 500 mL on her incentive spirometry. CARDIOVASCULAR: S1, S2 present. Irregular rate and rhythm, controlled atrial fibrillation on telemetry, heart rate in the 70s. Sternum stable. Palpable peripheral pulses bilaterally. Generalized edema present. No calf pain or tenderness noted. Heart hugger in place. Antiembolism stockings, SCDs present. GASTROINTESTINAL: Abdomen soft, slightly tender to palpation, nondistended. Active bowel sounds present 4 quadrants. Positive bowel movement. GENITOURINARY: Acevedo present draining clear yellow urine. Output overnight 50- 100 mL/hr INTEGUMENTARY: Skin is warm and dry. Slight jaundice to face and eyes. Anterior chest incision well approximated and covered with dry intact dressing. Right lower extremity EVH site well approximated without redness or drainage. Few scattered areas of petechiae, ecchymosis to the right thigh which is expected, no increase in size NEUROLOGIC: Cranial nerves II through XII intact MUSKULOSKELETAL: Able to move all extremities, strength equal bilaterally but weak PSYCHIATRIC: Alert and oriented to person place and time, appropriate affect, intact judgment and insight INVASIVE LINES AND TUBES: Right pleural chest tubes present and connected to wall suction, no air leak present. Right tube with 50 mL serosanguineous drainage overnight, 200 mL in the last 24 hours. A/V epicardial pacemaker wires present, connected to generator, VVI mode with backup rate 50 bpm. Right radial arterial line, right femoral dialysis catheter present. - Labs CBC & Chem 7: 01/02/21 04:34 01/02/21 04:34 Labs: Abnormal Lab Results - Last 24 Hours (Table) 01/01/21 01/01/21 01/01/21 Range/Units 09:25 13:42 16:05 WBC (3.8-10.6) k/uL RBC (3.80-5.40) m/uL Hgb (11.4-16.0) gm/dL Hct (34.0-46.0) % RDW (11.5-15.5) % Plt Count (150-450) k/uL Neutrophils # (1.3-7.7) k/uL Lymphocytes # (1.0-4.8) k/uL Monocytes # (0-1.0) k/uL PT (9.0-12.0) sec INR (<1.2) Sodium (137-145) mmol/L BUN (7-17) mg/dL Creatinine (0.52-1.04) mg/dL Glucose (74-99) mg/dL POC Glucose (mg/dL) 143 H 130 H 116 H (75-99) mg/dL Total Bilirubin (0.2-1.3) mg/dL AST (14-36) U/L ALT (4-34) U/L Alkaline Phosphatase (38-126) U/L Total Protein (6.3-8.2) g/dL Albumin (3.5-5.0) g/dL 01/02/21 01/02/21 01/02/21 Range/Units 04:31 04:34 04:34 WBC 18.5 H (3.8-10.6) k/uL RBC 3.23 L (3.80-5.40) m/uL Hgb 9.9 L (11.4-16.0) gm/dL Hct 29.6 L (34.0-46.0) % RDW 16.2 H (11.5-15.5) % Plt Count 62 L D (150-450) k/uL Neutrophils # 15.3 H (1.3-7.7) k/uL Lymphocytes # 0.7 L (1.0-4.8) k/uL Monocytes # 1.8 H (0-1.0) k/uL PT 14.2 H (9.0-12.0) sec INR 1.4 H (<1.2) Sodium (137-145) mmol/L BUN (7-17) mg/dL Creatinine (0.52-1.04) mg/dL Glucose (74-99) mg/dL POC Glucose (mg/dL) 115 H (75-99) mg/dL Total Bilirubin (0.2-1.3) mg/dL AST (14-36) U/L ALT (4-34) U/L Alkaline Phosphatase (38-126) U/L Total Protein (6.3-8.2) g/dL Albumin (3.5-5.0) g/dL 01/02/21 Range/Units 04:34 WBC (3.8-10.6) k/uL RBC (3.80-5.40) m/uL Hgb (11.4-16.0) gm/dL Hct (34.0-46.0) % RDW (11.5-15.5) % Plt Count (150-450) k/uL Neutrophils # (1.3-7.7) k/uL Lymphocytes # (1.0-4.8) k/uL Monocytes # (0-1.0) k/uL PT (9.0-12.0) sec INR (<1.2) Sodium 136 L (137-145) mmol/L BUN 61 H (7-17) mg/dL Creatinine 3.37 H (0.52-1.04) mg/dL Glucose 113 H (74-99) mg/dL POC Glucose (mg/dL) (75-99) mg/dL Total Bilirubin 11.1 H (0.2-1.3) mg/dL AST 1204 H (14-36) U/L ALT 1176 H (4-34) U/L Alkaline Phosphatase 179 H (38-126) U/L Total Protein 5.5 L (6.3-8.2) g/dL Albumin 3.4 L (3.5-5.0) g/dL Microbiology - Last 24 Hours (Table) 12/28/20 15:19 Blood Culture - Preliminary Blood No Growth after 96 hours Assessment and Plan Assessment: 1. Severe bicuspid aortic valve stenosis, status post aortic valve replacement with #21 mm Jackson Inspiris bioprosthetic aortic valve 2. Coronary artery disease, status post single vessel CABG 3. History of hypertension, currently hypotensive on Agustín-Synephrine 4. Hyperlipidemia, treated, cholesterol 111, LDL 38 5. Hypothyroid 6. 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 Right internal carotid artery stenosis 50-79% per Doppler 8. Previous tobacco dependence with moderate obstructive lung disease and preoperative FEV1 56% of predicted 9. Preoperative elevation of AST and ALT with transaminitis postoperatively, l ikely from hypotension 10. Degenerative arthritis with chronic back pain 11. Family history of colon cancer 12. Postoperative acute blood loss anemia, expected secondary to hemodilution and cardiopulmonary bypass pump 13. Hypotension requiring pressor use 14. Acute kidney injury secondary to hypoperfusion requiring initiation of dialysis 15. Shock liver secondary to hypoperfusion 16. Lactic acidosis secondary to hypoperfusion 17. Hypoxic respiratory failure requiring BiPAP 18. Thrombocytopenia 19. A. fib with RVR, known common occurrence after open heart surgery, status post exclusion of the left atrial appendage 20. Coagulopathy with DIC Plan: 1. Aspirin, statin, Plavix on hold, will restart when able. Continue beta kiki, will increase as tolerated 2. Wean O2 as tolerated. Bronchodilators per power line installer 3. Increase activity, up to chair, ambulate when able. PT/OT/cardiac rehab consulted 4. Will monitor daily labs and chest x-rays. Electrolyte replacement per protocol. 5. GI/DVT prophylaxis 6. Pain control current per current medication regimen. IV fentanyl switched to low-dose OxyContin, will assess tolerance 7. Insulin management per primary care service. Patient is not diabetic, hemoglobin A1c 5.7% 8. Nephrology consulted, appreciate recommendations. 9. Hematology consulted for thrombocytopenia, elevated liver function. HIT panel negative 10. Likely will discontinue right pleural chest tube 11. Continue Acevedo for strict accurate intake and output. Daily weight 12. Will feed patient as tolerated. Ensure supplements ordered 13. Keep in ICU for another 24 hours for close monitoring 14. More recommendations to follow based on patient's progress Time with Patient: Greater than 30
--- NOTE | 2021-01-02 07:49 | XR ---
EXAMINATION TYPE: XR chest 1V portable DATE OF EXAM: 01/02/2021 Comparison: 01/01/2021 Clinical History: 65-year-old female post cardiac surgery Findings: Median sternotomy wires are present with prosthetic aortic valve. Heart remains enlarged. Continued m oderate left effusion. The previous question pneumothorax/artifact at the left apex is no longer demo nstrated. Right-sided chest tube remains in place. No appreciable pneumothorax. Increased interstitia l densities remain. Impression: 1. Continued pulmonary vascular congestion and moderate left effusion with adjacent atelectasis and/o r consolidation. 2. Right-sided chest tube. No appreciable pneumothorax.
[2021-01-02 08:15] LABS: Glucose,Whole Blood 155 mg/dL (75-99)
[2021-01-02] MEDS ORDERED: FUROSEMIDE 10 MG/ML 10 ML VIAL IV STA (08:38)
[2021-01-02] MEDS: METOPROLOL TARTRATE 25 MG TAB PO SCH ×2 (08:54→21:26)
[2021-01-02] MEDS: PANTOPRAZOLE 40 MG/10 ML VIAL IVP SCH ×2 (08:54→21:26)
--- NOTE | 2021-01-02 08:54 | P.PN ---
Progress Note - Text Progress Note Date: 01/02/21 Patient seen sitting up in a chair without any signs of distress. Doing well according to the nursing staff. Kidney function is improving and will likely not need permanent dialysis. Catheter is functioning well in the right groin. We will follow peripherally.
--- NOTE | 2021-01-02 09:20 | P.PN ---
Subjective Patient is seen in follow-up for acute kidney injury. Renal function fairly stable. Received hemodialysis yesterday with 2.3 L out of filtration. Urine output 50-100 mL an hour. Currently on 3 L nasal cannula. Denies chest pain or shortness of breath. Oral intake fair. Vital signs are stable. General: The patient appeared well nourished and normally developed. HEENT: Head exam is unremarkable. Neck is without jugular venous distension. LUNGS: Breath sounds decreased. HEART: Rate and Rhythm are regular. ABDOMEN: Soft, no distention. EXTREMITITES: No edema. Objective - Vital Signs Vital signs: Vital Signs Temp 97.5 F L 01/02/21 08:00 Pulse 74 01/02/21 09:00 Resp 18 01/02/21 09:00 BP 136/76 01/02/21 09:00 Pulse Ox 95 01/02/21 09:00 Intake & Output 01/01/21 01/02/21 01/02/21 18:59 06:59 18:59 Intake Total 460 156 79 Output Total [address] [place] [address] -2415 -714 -106 Weight 66.9 kg 64.4 kg Intake: IV 380 156 29 0.9 80 D5.9 240 120 20 pressure bags 60 36 9 Oral 80 50 Output: Chest Tube Drainage 75 80 5 Right Pleural 75 80 5 Urine 500 790 180 Hemodialysis 2300 Other: Voiding Method Indwelling Catheter Indwelling Catheter Indwelling Catheter ABP, PAP, CO, CI - Last Documented Arterial Blood Pressure 148/70 Pulmonary Artery Pressure 12/5 Cardiac Output 4.2 Cardiac Index 2.6 - Labs CBC & Chem 7: 01/02/21 04:34 01/02/21 04:34 Labs: Abnormal Lab Results - Last 24 Hours (Table) 01/01/21 01/01/21 01/01/21 Range/Units 09:25 13:42 16:05 WBC (3.8-10.6) k/uL RBC (3.80-5.40) m/uL Hgb (11.4-16.0) gm/dL Hct (34.0-46.0) % RDW (11.5-15.5) % Plt Count (150-450) k/uL Neutrophils # (1.3-7.7) k/uL Lymphocytes # (1.0-4.8) k/uL Monocytes # (0-1.0) k/uL PT (9.0-12.0) sec INR (<1.2) Sodium (137-145) mmol/L BUN (7-17) mg/dL Creatinine (0.52-1.04) mg/dL Glucose (74-99) mg/dL POC Glucose (mg/dL) 143 H 130 H 116 H (75-99) mg/dL Total Bilirubin (0.2-1.3) mg/dL AST (14-36) U/L ALT (4-34) U/L Alkaline Phosphatase (38-126) U/L Total Protein (6.3-8.2) g/dL Albumin (3.5-5.0) g/dL 01/02/21 01/02/21 01/02/21 Range/Units 04:31 04:34 04:34 WBC 18.5 H (3.8-10.6) k/uL RBC 3.23 L (3.80-5.40) m/uL Hgb 9.9 L (11.4-16.0) gm/dL Hct 29.6 L (34.0-46.0) % RDW 16.2 H (11.5-15.5) % Plt Count 62 L D (150-450) k/uL Neutrophils # 15.3 H (1.3-7.7) k/uL Lymphocytes # 0.7 L (1.0-4.8) k/uL Monocytes # 1.8 H (0-1.0) k/uL PT 14.2 H (9.0-12.0) sec INR 1.4 H (<1.2) Sodium (137-145) mmol/L BUN (7-17) mg/dL Creatinine (0.52-1.04) mg/dL Glucose (74-99) mg/dL POC Glucose (mg/dL) 115 H (75-99) mg/dL Total Bilirubin (0.2-1.3) mg/dL AST (14-36) U/L ALT (4-34) U/L Alkaline Phosphatase (38-126) U/L Total Protein (6.3-8.2) g/dL Albumin (3.5-5.0) g/dL 01/02/21 01/02/21 Range/Units 04:34 08:13 WBC (3.8-10.6) k/uL RBC (3.80-5.40) m/uL Hgb (11.4-16.0) gm/dL Hct (34.0-46.0) % RDW (11.5-15.5) % Plt Count (150-450) k/uL Neutrophils # (1.3-7.7) k/uL Lymphocytes # (1.0-4.8) k/uL Monocytes # (0-1.0) k/uL PT (9.0-12.0) sec INR (<1.2) Sodium 136 L (137-145) mmol/L BUN 61 H (7-17) mg/dL Creatinine 3.37 H (0.52-1.04) mg/dL Glucose 113 H (74-99) mg/dL POC Glucose (mg/dL) 155 H (75-99) mg/dL Total Bilirubin 11.1 H (0.2-1.3) mg/dL AST 1204 H (14-36) U/L ALT 1176 H (4-34) U/L Alkaline Phosphatase 179 H (38-126) U/L Total Protein 5.5 L (6.3-8.2) g/dL Albumin 3.4 L (3.5-5.0) g/dL Microbiology - Last 24 Hours (Table) 12/28/20 15:19 Blood Culture - Preliminary Blood No Growth after 96 hours Assessment and Plan Plan: Assessment: 1. Acute kidney injury secondary to ATN, post CABG. Head for treatment of hemodialysis yesterday mostly for fluid overload. Renal function stable. Creatinine 3.37 today. Baseline creatinine near 1. 2. Status post CABG and aortic valve replacement on 12/26/2020. 3. Acute diastolic CHF and moderate tricuspid regurgitation and pulmonary hypertension. 4. Volume overload. Improved with ultrafiltration and improved urine output. 5. Acute blood loss anemia status post blood transfusion this admission. 6. Shock liver. Plan: Hold off on hemodialysis today. Lasix 60 mg IV once today. Encourage oral intake. Continue to monitor renal function and urine output. Continue to assess for renal replacement therapy on daily basis.
--- NOTE | 2021-01-02 10:58 | P.PN ---
Subjective Progress Note Date: 12/26/20 Principal diagnosis: Aortic valve replacement and CABG 1 vessel postoperative day #7 2020 the patient is being seen for a follow-up. Awake and alert, lethargic. Response to the moving all 4 extremities without any limitation. She remains on BiPAP at a pressure of 12/5 with an FiO2 of 50%. Generating a tidal volumes between 350 and 400 with a respiratory rate in the mid 20s. Abdomen is ventilation is around 8 L per minute. The patient has the chest tube still in place both the right pleural and mediastinal chest tube. The output has been 2 40 mL overnight over the past 12 hours and output is still bloody. She made minimal amount of urine output probably in the order of 50 mL all night. Hemodynamically stable. Off Agustín-Synephrine. She converted into sinus rhythm with a first-degree AV block. Chest x-ray showing some mild four-vessel congestion and all of the chest tubes are in place. Hemoglobin is at 8.5 with a platelet count of 25 and a coagulation profile shows an INR of 2.3 with a PT of 22.3 and a PTT of 32, lactic acid level is down to 1.8, BUN is 41 with a creatinine of 2.5 and a sodium of 136 with a potassium of 3.9. Glucose is 125. Shock liver is gradually improving and the AST is down to 4112 and ALT is down to 2017. She underwent hemodialysis yesterday without any major complications. He dialyzes catheter is still present in her right groin. No signs of any bleeding. No other issues for now. She is arousable. She follows commands and answers questions appropriately. No other significant events overnight. Note that her follow-up digoxin level was down to 2.1. She got transfused with platelets yesterday. Patient was reevaluated today on 01/01/2021, patient remains in the ICU, fully awake, alert, in no distress. Patient is on 3 L nasal cannula. She denies any shortness of breath, continues to have a right sided chest tube in place, she has mostly symptoms of surgical pain, and intermittent episodes of nausea. P atient is off pressors, she is in sinus rhythm with first-degree AV block, remains on IV Zosyn. Her labs were reviewed, platelets remained low at 63,000 BUN is 52 creatinine 3.31, INR is 1.8. Liver enzymes remain elevated. Urine output about 20 mL per hour overnight. She received dialysis yesterday for the third time. Chest x-ray today showed a left-sided pneumothorax and good sized left-sided pleural effusion, discussed this issue with thoracic surgery planned to observe for now, no plans for thoracentesis or chest tube placement. I prefer. Chest tube placement specially with her platelets being as low. Patient was reevaluated today on 01/02/2021, remains in the ICU, she is on 3 L na debbie cannula, patient received hemodialysis yesterday, and 2.2 L were removed. Today her chest x-ray continues to show left lower lobe atelectasis and pleural effusion, she continues to have a small left-sided apical pneumothorax, her platelets are down to 62,000. Liver function is at this remain elevated. But seems to be trending down. Her IV fluids at KVO. Patient is in atrial fibrillation with controlled rate. Right-sided chest tube remains in place. Patient is not in any distress, again she is on 3 L nasal cannula. WBC count today is 18.5 hemoglobin is 9.9 her electrolytes are normal renal profile showed a BUN of 61 creatinine of 3.37. Objective - Vital Signs Vital signs: Vital Signs Temp 97.5 F L 01/02/21 08:00 Pulse 65 01/02/21 10:00 Resp 18 01/02/21 10:00 BP 140/74 01/02/21 10:00 Pulse Ox 96 01/02/21 10:00 Intake & Output 01/01/21 01/02/21 01/02/21 18:59 06:59 18:59 Intake Total 460 156 107 Output Total 2875 870 300 Balance -2415 -714 -193 Weight 66.9 kg 64.4 kg Intake: IV 380 156 32 0.9 80 D5.9 240 120 20 pressure bags 60 36 12 Oral 80 75 Output: Chest Tube Drainage 75 80 10 Right Pleural 75 80 10 Urine 500 790 290 Hemodialysis 2300 Other: Voiding Method Indwelling Catheter Indwelling Catheter Indwelling Catheter ABP, PAP, CO, CI - Last Documented Arterial Blood Pressure 131/58 Pulmonary Artery Pressure 12/5 Cardiac Output 4.2 Cardiac Index 2.6 - Exam Physical Exam: Revealed a 65-year-old female in no distress, on 3 L nasal cannula. Head: Atraumatic, normocephalic. HEENT:[Neck is supple.] [No neck masses.] [No thyromegaly.] [No JVD.] PERRLA, EOMI, nonicteric. Right internal jugular cordis noted in place. And she has a right femoral dialysis catheter Chest: [Symmetrical chest expansion, diminished breath sounds at the bases bilaterally. Right-sided chest tube noted, connected to wall suction, no air leak present. Cardiac Exam: [Normal S1 and S2, no S3 gallop, no murmur.] Abdomen: [Soft, nontender, no megaly, no rebound, no guarding, normal bowel sounds.] Extremities: [No clubbing, no edema, no cyanosis.] Neurological Exam: [No focal neurologic deficit.] Alert and oriented 3. Psychiatric: Normal mood, affect and normal mental status examination. Skin: No rashes. However the patient has a few areas of petechiae and ecchymosis in the right thigh - Labs CBC & Chem 7: 01/02/21 04:34 01/02/21 04:34 Labs: Abnormal Lab Results - Last 24 Hours (Table) 01/01/21 01/01/21 01/02/21 Range/Units 13:42 16:05 04:31 WBC (3.8-10.6) k/uL RBC (3.80-5.40) m/uL Hgb (11.4-16.0) gm/dL Hct (34.0-46.0) % RDW (11.5-15.5) % Plt Count (150-450) k/uL Neutrophils # (1.3-7.7) k/uL Lymphocytes # (1.0-4.8) k/uL Monocytes # (0-1.0) k/uL PT (9.0-12.0) sec INR (<1.2) Sodium (137-145) mmol/L BUN (7-17) mg/dL Creatinine (0.52-1.04) mg/dL Glucose (74-99) mg/dL POC Glucose (mg/dL) 130 H 116 H 115 H (75-99) mg/dL Total Bilirubin (0.2-1.3) mg/dL AST (14-36) U/L ALT (4-34) U/L Alkaline Phosphatase (38-126) U/L Total Protein (6.3-8.2) g/dL Albumin (3.5-5.0) g/dL 01/02/21 01/02/21 01/02/21 Range/Units 04:34 04:34 04:34 WBC 18.5 H (3.8-10.6) k/uL RBC 3.23 L (3.80-5.40) m/uL Hgb 9.9 L (11.4-16.0) gm/dL Hct 29.6 L (34.0-46.0) % RDW 16.2 H (11.5-15.5) % Plt Count 62 L D (150-450) k/uL Neutrophils # 15.3 H (1.3-7.7) k/uL Lymphocytes # 0.7 L (1.0-4.8) k/uL Monocytes # 1.8 H (0-1.0) k/uL PT 14.2 H (9.0-12.0) sec INR 1.4 H (<1.2) Sodium 136 L (137-145) mmol/L BUN 61 H (7-17) mg/dL Creatinine 3.37 H (0.52-1.04) mg/dL Glucose 113 H (74-99) mg/dL POC Glucose (mg/dL) (75-99) mg/dL Total Bilirubin 11.1 H (0.2-1.3) mg/dL AST 1204 H (14-36) U/L ALT 1176 H (4-34) U/L Alkaline Phosphatase 179 H (38-126) U/L Total Protein 5.5 L (6.3-8.2) g/dL Albumin 3.4 L (3.5-5.0) g/dL 01/02/21 Range/Units 08:13 WBC (3.8-10.6) k/uL RBC (3.80-5.40) m/uL Hgb (11.4-16.0) gm/dL Hct (34.0-46.0) % RDW (11.5-15.5) % Plt Count (150-450) k/uL Neutrophils # (1.3-7.7) k/uL Lymphocytes # (1.0-4.8) k/uL Monocytes # (0-1.0) k/uL PT (9.0-12.0) sec INR (<1.2) Sodium (137-145) mmol/L BUN (7-17) mg/dL Creatinine (0.52-1.04) mg/dL Glucose (74-99) mg/dL POC Glucose (mg/dL) 155 H (75-99) mg/dL Total Bilirubin (0.2-1.3) mg/dL AST (14-36) U/L ALT (4-34) U/L Alkaline Phosphatase (38-126) U/L Total Protein (6.3-8.2) g/dL Albumin (3.5-5.0) g/dL Microbiology - Last 24 Hours (Table) 12/28/20 15:19 Blood Culture - Preliminary Blood No Growth after 96 hours Assessment and Plan Assessment: Impression: Status post aortic valve replacement and single-vessel bypass surgery postoperative day # 7 Shock liver secondary to cardiogenic shock and severe metabolic acidosis secondary to cardiogenic shock, resolving. Coagulopathy secondary to shocked liver, doubt H IT syndrome. Hyperlipidemia. Hypothyroidism. History of CVA. Episodes of atrial flutter and RVR, presently in normal sinus rhythm. Spontaneous Left-sided pneumothorax, exact etiology is not clear, with left pleural effusion, thoracic surgery is aware, prefer to wait rather than chest tube placement or thoracentesis. Acute kidney injury and renal failure secondary to cardiogenic shock/cardiorenal, patient has been on hemodialysis 3, being followed by nephrology. 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 Recommendation: Continue present supportive care measures. Continue beta blockers. Titrate oxygen accordingly. Continue bronchodilators. Continue to monitor left-sided pneumothorax and pleural effusion for now. Continue insulin Continue GI and DVT prophylaxis. Consider transferring the patient out of the ICU to a cardiac floor. We'll continue to follow. Time with Patient: Less than 30
[2021-01-02 11:20] LABS: Glucose,Whole Blood 151 mg/dL (75-99)
--- NOTE | 2021-01-02 11:31 | P.PN ---
Subjective Progress Note Date: 01/02/21 HISTORY OF PRESENT ILLNESS This is a 65-year-old female patient of Dr. 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 Patient underwent echocardiogram that revealed an ejection fraction of 55-60% with LVH, mild to moderate MR, bicuspid severely calcified aortic valve with moderate aortic regurgitation, moderate tricuspid regurgitation. The patient underwent cardiac julián terizationTEE for further evaluation. The cath showed right coronary artery stenosis in the order of 85% without any significant coronary artery disease. The transthoracic echocardiogram showed severe aortic stenosis. Patient underwent aortic valve replacement and one-vessel CABG with reverse saphenous vein graft off the aorta to the right coronary artery. Patient was admitted into the intensive care unit and was successfully extubated. She is seen today in the intensive care unit. She is up in a recliner. Volborg-Kelli in place, mediastinal and right-sided chest tubes in place, Acevedo catheter in place. Patient denies having any chest pain. She states she is not feeling too bad today. She has a little nausea. No abdominal pain. She states she slept okay last night. She has been afebrile, heart rate 71, blood pressure 119/52, pulse ox 90% on 5 L nasal cannula. Blood work this morning reveals W BC 15.2, hemoglobin 8, platelet count 168. Electrolytes normal, BUN 19 and creatinine 0.78. Blood sugars running between 124 and 141. AST 167. Chest x-ray reveals small residual right apical pneumothorax may be present. Chest tubes pulled back slightly from comparison. Volborg-Kelli catheter is somewhat peripheral and the right main pulmonary artery region. Cardiomegaly. Small left pleural effusion. 12/28: Patient remains in the intensive care unit. Patient has become hypoten sive with low urine output, elevated lactic acid, anemia, liver enzyme elevation and generalized anasarca. Patient is been started on dopamine, Primacor and is status post albumin and is status post 1 unit packed RBCs this morning. Urine output is improving. She is on BiPAP. Patient complains of generalized not feeling well and shortness of breath. Repeat CXR reports slight increase in mild left hilar and left basilar edema and/or atelectasis. Small pleural effusion. WBC 18.7, hemoglobin initially 6.8 and repeat a 0.1. Platelet count 124. INR 2.8. Electrolytes normal. BUN 32 and creatinine 1.53. Blood sugars running in the 140-170s. Total bilirubin 1.9, AST 1140, ALT 662, alkaline phosphatase 30. Amylase and lipase normal. 12/29: She remains in the intensive care unit. She has not been intubated. Her overall condition continues to decline and she is scheduled for dialysis catheter placement to start hemodialysis. She has had virtually no urine output despite being on Lasix drip patient also went into atrial fibrillation and started on digoxin. She remains with right pleural and mediastinal chest tubes are in place. Additional new diagnoses include A. fib with RVR, ischemic bowel suspected, bicytopenia. Patient is awake. She is complaining of chest discomfort. She is not have increased edema. Her temperature has been low down to 96.5. Heart rate 114, blood pressure 122/54, pulse ox 90%. WBC 14.6, hemoglobin 6, platelet count 26. INR 3.3. Electrolytes normal. BUN 53 and creatinine 2.77. Calcium 7.8. Ionized calcium 3.8. Total bilirubin 3, AST 11,442, ALT 3572, alkaline phosphatase 41. She has been ordered for plasma, platelets and RBC transfusions. 12/30: Patient is currently on BiPAP. She had dialysis catheter placed by vascular surgeon yesterday and underwent her first hemodialysis with removal of 3 L. She has had no urine output overnight. She remains with chest tubes in place. Acevedo catheter is in place. Repeat blood work reveals W BC 13.3, hemoglobin 9, platelet count 24. She is scheduled for platelet transfusion today. INR 2.6. BUN 33 creatinine 2.18. Blood sugars are running between 110 and 138. Magnesium 2.2. Potassium 4.3. Total bilirubin 5.0, AST 8066, ALT 2707, alkaline phosphatase 74. Digoxin level II.9. Patient not currently on digoxin. residential monitor sinus rhythm with a bundle branch block. She has been afebrile, heart rate in the 80s, blood pressure 138/52, pulse ox 93%. Cultures no growth at 24 hours. 12/31: Patient is scheduled for repeat dialysis today. She has had 15 mL output overnight of urine. Patient complains of nausea. Reglan changed to scheduled. She states she's had some ice chips. Patient is awake and alert but thinks it's June 2021. She did have a bowel movement this morning. Patient has been afebrile, heart rate in the 80s and 90s, blood pressure 145/72, pulse ox 97% on BiPAP. Repeat blood work reveals WBC 9.7, hemoglobin 8.5, platelet count 25. No plan for platelet transfusion today. INR is 2.3. Sodium 136 otherwise electrolytes are normal. BUN 41 and creatinine 2.58. Ionized calcium 4.1, total bilirubin 7.6, AST 4112, ALT 2017, alkaline phosphatase 94. Blood sugars are running between 96 and 136. PICC line is ordered for tomorrow. 01/01: Patient remains in the intensive care unit. She is now off BiPAP. Patient is starting to make urine at 15-20 mL per hour. Liver function tests are improving. She states that she is feeling a little nausea that comes and goes. She does have Zofran available and Reglan has been changed to when necess patrice. Pulse ox 93% on 3 L nasal cannula, blood pressure 163/75, heart rate 80s, afebrile. WBC 13.7, hemoglobin 9.1, platelet count 33. INR 1.8. Electrolytes normal. BUN 52 and creatinine 3.31. Blood sugars are running between 123 and 143. Ionized calcium 4.4, total bilirubin 11.1, AST 2123, ALT 1484, alkaline phosphatase 128. Chest x-ray reveals diminished lung volumes suspect worsening pulmonary vascular congestion. Increased moderate left pleural effusion with adjacent atelectasis and/or consolidation. Fine linear density projecting across the left apex suspected artifact rather than small pneumothorax. Ultrasound of the chest revealed left pleural effusion pocket 10.4 cm. Patient is status post calcium gluconate. Metoprolol increased to 25 mg twice daily. Patient is off antibiotics. 01/02: Patient is seen today sitting in recliner and her ICU room. She remains with [address] and Acevedo catheter. She has improved urine output. She complains of nausea. Last bowel movement was on December 31. She has been afebrile, heart rate in the 60s, blood pressure 140/74, pulse ox 99% on 3 L nasal cannula. Repeat blood work reveals WBC 18.5, hemoglobin 9.9, platelet count 62. INR 1.4. Sodium 136, BUN 61 and creatinine 3.37. Blood sugars running between 115 and 155. Total bilirubin 11.1, AST 1204, ALT 1176, alkaline phosphatase 179. Repeat chest x-ray reveals continued pulmonary vascular congestion and moderate left effusion with adjacent atelectasis and/or consolidation. Right-sided chest tube. No pneumothorax. Patient underwent dialysis yesterday with removal of 2.2 L. Dialysis treatment on hold for now the patient is followed closely by nephrology. REVIEW OF SYSTEMS Constitutional: No fever, no chills, no night sweats. No weight change. Reports generalized weakness, reports fatigue reports lethargy. No daytime slee piness. EENT: No headache. No change in vision, no loss of vision. No loss of Hearing, no dizziness. No nasal drainage or congestion. No epistaxis. No sore throat. Lungs: Reports shortness of breath, cough, no sputum production. No wheezing. Cardiovascular: Reports chest discomfort, reports lower extremity edema. Reports generalized edema. No palpitations. No paroxysmal nocturnal dyspnea. No orthopnea. No lightheadedness or dizziness. No syncopal episodes. Abdominal: No abdominal pain. Reports intermittent nausea, denies vomiting. No diarrhea. No constipation. No bloody or tarry stools. No loss of appetite. Genitourinary: No dysuria, increased frequency, urgency. No urinary retention. Musculoskeletal: No myalgias. Reports muscle weakness, no gait dysfunction, no frequent falls. No back pain. No neck pain. Integumentary: No wounds, no lesions. No rash or pruritus. Neurologic: No aphasia. No facial droop. No change in mentation. No head injury. No headache. No paralysis. No paresthesia. Psychiatric: No depression. No anxiety. Endocrine: Reports abnormal blood sugars. PHYSICAL EXAMINATION Gen: This paradise 65-year-old female. She is resting in ICU bed, she is on nasal cannula, appears to be comfortable at rest. HEENT: Head is atraumatic, normocephalic. Pupils equal, round. Sclerae is icteric. NECK: Supple. No JVD. No lymphadenopathy. No thyromegaly. LUNGS: Diminished bilaterally. No wheezes or rhonchi. No intercostal retractions. Right pleural chest tube in place. HEART: Regular rate and rhythm. No murmur. ABDOMEN: Soft. Bowel sounds are present. No masses. No tenderness. Acevedo catheter in place. EXTREMITIES: Mild generalized pedal edema. No calf tenderness. Dorsalis pedis palpable bilaterally. NEUROLOGICAL: Patient is awake, alert and oriented x3. Cranial nerves 2 through 12 are grossly intact. ASSESSMENT AND PLAN 1. Aortic valve replacement for bicuspid valve with moderate aortic regurgitation and single-vessel CABG with CVG to RCA. Patient is postop day # 7. She has been successfully extubated and now on nasal cannula. Continue current management per cardiothoracic surgery. 2. Rule out cardiogenic shock. Currently stable. 3. Transaminitis secondary to hypoperfusion and shock liver, improving. Continue to monitor liver function tests and INR. 4. Acute blood loss anemia, expected following surgery. Repeat transfusion today. 5. Lactic acidosis secondary to hyperperfusion, improving. 6. A. fib with RVR, paroxysmal atrial fibrillation, converted to sinus rhythm. 7. Possible ischemic bowel. 8. Bicytopenia with thrombocytopenia and anemia. Status post total transfusion of 5 units of platelets, 4 units of fresh frozen plasma, 4 units of packed RBCs. 9. Acute renal failure requiring dialysis. Patient started hemodialysis on December 29. No plan for dialysis today. 10. Acute hypoxic respiratory failure requiring BiPAP. Patient is on nasal cannula. 11. SIRS with multiorgan failure. Continue current management. 12. Hypertension. Patient is currently hypotensive. 13. Hyperlipidemia. 14. History of CVA 2. 15. Hypothyroidism. Continue levothyroxine 25 g daily. 16. Recurrent depression. Continue Zoloft 25 mg at bedtime. 17. Degenerative disc disease. 18. GI prophylaxis. Protonix 40 mg IV push twice daily. 19. DVT prophylaxis. Off heparin due to thrombocytopenia DISCHARGE PLAN TBD. Impression and plan of care have been directed as dictated by the signing physician. Donna Gutierrez nurse practitioner acting as scribe for signing physician. Objective - Vital Signs Vital signs: Vital Signs Temp 97.5 F L 01/02/21 08:00 Pulse 74 01/02/21 09:00 Resp 18 01/02/21 09:00 BP 136/76 01/02/21 09:00 Pulse Ox 95 01/02/21 09:00 Intake & Output 01/01/21 01/02/21 01/02/21 18:59 06:59 18:59 Intake Total 460 156 79 Output Total 2875 870 185 Balance -2415 -714 -106 Weight 66.9 kg 64.4 kg Intake: IV 380 156 29 0.9 80 D5.9 240 120 20 pressure bags 60 36 9 Oral 80 50 Output: Chest Tube Drainage 75 80 5 Right Pleural 75 80 5 Urine 500 790 180 Hemodialysis 2300 Other: Voiding Method Indwelling Catheter Indwelling Catheter Indwelling Catheter ABP, PAP, CO, CI - Last Documented Arterial Blood Pressure 148/70 Pulmonary Artery Pressure 12/5 Cardiac Output 4.2 Cardiac Index 2.6 - Labs CBC & Chem 7: 01/02/21 04:34 01/02/21 04:34 Labs: Abnormal Lab Results - Last 24 Hours (Table) 01/01/21 01/01/21 01/02/21 Range/Units 13:42 16:05 04:31 WBC (3.8-10.6) k/uL RBC (3.80-5.40) m/uL Hgb (11.4-16.0) gm/dL Hct (34.0-46.0) % RDW (11.5-15.5) % Plt Count (150-450) k/uL Neutrophils # (1.3-7.7) k/uL Lymphocytes # (1.0-4.8) k/uL Monocytes # (0-1.0) k/uL PT (9.0-12.0) sec INR (<1.2) Sodium (137-145) mmol/L BUN (7-17) mg/dL Creatinine (0.52-1.04) mg/dL Glucose (74-99) mg/dL POC Glucose (mg/dL) 130 H 116 H 115 H (75-99) mg/dL Total Bilirubin (0.2-1.3) mg/dL AST (14-36) U/L ALT (4-34) U/L Alkaline Phosphatase (38-126) U/L Total Protein (6.3-8.2) g/dL Albumin (3.5-5.0) g/dL 01/02/21 01/02/21 01/02/21 Range/Units 04:34 04:34 04:34 WBC 18.5 H (3.8-10.6) k/uL RBC 3.23 L (3.80-5.40) m/uL Hgb 9.9 L (11.4-16.0) gm/dL Hct 29.6 L (34.0-46.0) % RDW 16.2 H (11.5-15.5) % Plt Count 62 L D (150-450) k/uL Neutrophils # 15.3 H (1.3-7.7) k/uL Lymphocytes # 0.7 L (1.0-4.8) k/uL Monocytes # 1.8 H (0-1.0) k/uL PT 14.2 H (9.0-12.0) sec INR 1.4 H (<1.2) Sodium 136 L (137-145) mmol/L BUN 61 H (7-17) mg/dL Creatinine 3.37 H (0.52-1.04) mg/dL Glucose 113 H (74-99) mg/dL POC Glucose (mg/dL) (75-99) mg/dL Total Bilirubin 11.1 H (0.2-1.3) mg/dL AST 1204 H (14-36) U/L ALT 1176 H (4-34) U/L Alkaline Phosphatase 179 H (38-126) U/L Total Protein 5.5 L (6.3-8.2) g/dL Albumin 3.4 L (3.5-5.0) g/dL 01/02/21 Range/Units 08:13 WBC (3.8-10.6) k/uL RBC (3.80-5.40) m/uL Hgb (11.4-16.0) gm/dL Hct (34.0-46.0) % RDW (11.5-15.5) % Plt Count (150-450) k/uL Neutrophils # (1.3-7.7) k/uL Lymphocytes # (1.0-4.8) k/uL Monocytes # (0-1.0) k/uL PT (9.0-12.0) sec INR (<1.2) Sodium (137-145) mmol/L BUN (7-17) mg/dL Creatinine (0.52-1.04) mg/dL Glucose (74-99) mg/dL POC Glucose (mg/dL) 155 H (75-99) mg/dL Total Bilirubin (0.2-1.3) mg/dL AST (14-36) U/L ALT (4-34) U/L Alkaline Phosphatase (38-126) U/L Total Protein (6.3-8.2) g/dL Albumin (3.5-5.0) g/dL Microbiology - Last 24 Hours (Table) 12/28/20 15:19 Blood Culture - Preliminary Blood No Growth after 96 hours
--- NOTE | 2021-01-02 11:35 | P.PN ---
Subjective Progress Note Date: 01/02/21 HISTORY OF PRESENT ILLNESS: 12/27/2020 This is a 65-year-old female with a past medical history significant for CVA/TIA, hypertension, hyperlipidemia, nicotine dependence, and hypothyroidism. Patient follows in the office with Dr. Lee. We have been asked to see the patient in consultation for postoperative care. Patient examined this morning in the intensive care unit. Patient is status post aortic valve replacement and CABG 1: SVG to RCA. Postop day #1. Patient is sitting up in the chair. Patient is hemodynamically stable and not requiring any vasopressor support. Patient is on 5 L nasal cannula with oxygen saturations greater than 92%. The patient has a weak nonproductive cough. She denies chest pain or pressure. She denies shortness of breath. She reports nausea this morning. No episodes of emesis. She is receiving 500cc albumin at the time of examination. Telemetry reveals sinus mechanism. Chest xray small residual right apical pneumothorax may be present. Cardiomegaly. Small left pleural effusion. Laboratory data: WBC 15.2. Hemoglobin 8.0. Platelet count 160. Sodium 137. Potassium 4.8. BUN 19. Creatinine 0.78. Magnesium 2.2. Current home cardiac medications include amlodipine 5 mg daily, metoprolol tartrate 12.5 mg twice a day, Lipitor 40 mg daily, and aspirin 81 mg daily FIDEL: 12/15/2020 revealing severe aortic stenosis which is calcific in nature with mild eccentric aortic regurgitation. Mild mitral and tricuspid regurgitation. Biatrial enlargement. No clot in left atrial appendage. No PFO. Normal LV function. Cardiac catheterization: 12/15/2020 revealing 80% lesion of RCA. 12/28/2020 Patient is s/p CABG x 1 and AVR. POD #1. Patient examined this morning in the ICU. Patient developed hypotension, lactic acidosis, shortness of breath, and increasing oxygen requirement overnight. Patient was placed on a BiPAP. She received sodium bicarb. She is currently on dopamine and Primacor. Hemoglobin is 6.8. Patient received 1 unit packed RBCs. Blood pressure 102/39. Heart rate in the 70s. 12/29/2020 Patient examined this morning in the intensive care unit. Patient remains on a bipap. Overnight, the patient had decreased urine output. Patient was given IV lasix and subsequently started on a lasix drip. Patient with worsening hypotension and has been started on vasopressors. Patient also went into afib with RVR this morning. She has been started on Digoxin. Hemoglobin 6.0. Platelet count 26. INR 3.3. BUN 53. Creatinine 2.77. AST 11,442. ALT 3572. Patient is to receive a hemodialysis catheter today and will be started on hemodialysis. 12/30/2020 Patient examined this morning in the intensive care unit. She remains on a BiPAP. patient states her breathing has improved this morning. Patient is curre ntly maintaining sinus mechanism on telemetry. Patient underwent hemodialysis yesterday with removal of 3 L. she is also receiving hemodialysis again this morning. She remains on vasopressor support with Agustín-Synephrine. Hemoglobin 9.0. Platelet count 24. BUN 33. Creatinine 2.18. AST 8066. ALT 2707. 12/31/2020 Patient examined this morning in the intensive care unit. Patient remains on a BiPAP. Patient is awake and alert. Patient remains in sinus mechanism on telemetry. Patient's vasopressors have been weaned off. Patient received hemodialysis for the second time yesterday. Hemoglobin 8.5. Platelet count 25. INR 2.3. BUN 41. Creatinine 2.56. AST 4112. ALT 2118. 01/01/2021 Patient examined this morning. She remains in intensive care unit. Patient has been weaned off BiPAP to nasal cannula. She denies chest pain or pressure. Denies shortness of breath. Patient remains off vasopressors. She received hemodialysis yesterday for the third time. Creatinine 3.31 today. BUN 52. LFTs are trending downward. AST 2123. ALT 1484. INR 1.8. Hemoglobin 9.1. Platelet count 33. She remains in sinus mechanism. Chest x-ray completed this morning revealed diminished lung volumes and suspected worsening pulmonary vascular congestion. Increasing moderate left pleural effusion with adjacent atelectasis and/or consolidation. Fine linear density projecting across the left apex, suspected external artifact rather than a small pneumothorax. Short interval follow-up recommended to reassess. 01/02/2021 Patient examined this morning in the intensive care unit. She is sitting up in the chair. She went back into afib yesterday. She remains in afib with controlled ventricular rate this morning. She complains of nausea. She received dialysis yesterday for the 3rd time. No plans for dialysis today but did receive a dose of IV lasix per nephrology. She remains off vasopressors. PHYSICAL EXAM: VITAL SIGNS: Reviewed. GENERAL: Well-developed in no acute distress. HEENT: Head is normocephalic. Pupils are equal, round. Sclerae anicteric. Mucous membranes of the mouth are moist. Neck supple. No JVD or thyromegaly LUNGS: Respirations even and unlabored. Lungs diminished bilaterally. HEART: Irregular rate and rhythm. S1 and S2 heard. Chest tube noted with no evidence of air leak. Heart hugger noted. EXTREMITIES: Normal range of motion. No clubbing or cyanosis. Peripheral pulses intact. Trace bilateral lower extremity edema ASSESSMENT: Severe aortic stenosis, s/p bioprosthetic aortic valve replacement, 12/26/2020 Coronary artery disease, s/p CABG x 1 SVG to RCA, 12/26/2020 New onset paroxysmal atrial fibrillation with RVR Acute hypoxic respiratory failure, requiring bipap Thrombocytopenia Coagulopathy, INR 3.3, improving Acute blood loss anemia Lactic acidosis Transaminitis, suspect secondary to hypotension Acute kidney injury Hypertension Hyperlipidemia CVA with residual right-sided blindness Hypothyroidism Former nicotine dependence PLAN: Continue postoperative management per CTS Continue telemetry monitoring Statin held due to elevated LFTs Aspirin and Plavix remain on hold Continue beta kiki as tolerated Monitor hemoglobin Hematology following for thrombocytopenia Nephrology following. Further recommendations pending patient course Nurse practitioner note has been reviewed by physician. Signing provider agrees with the documented findings, assessment, and plan of care. Objective - Vital Signs Vital signs: Vital Signs Temp 97.5 F L 01/02/21 08:00 Pulse 69 01/02/21 11:08 Resp 15 01/02/21 11:00 BP 140/74 01/02/21 11:00 Pulse Ox 99 01/02/21 11:00 Intake & Output 01/01/21 01/02/21 01/02/21 18:59 06:59 18:59 Intake Total 460 156 110 Output Total 2875 870 400 Balance -2415 -714 -290 Weight 66.9 kg 64.4 kg Intake: IV 380 156 35 0.9 80 D5.9 240 120 20 pressure bags 60 36 15 Oral 80 75 Output: Chest Tube Drainage 75 80 10 Right Pleural 75 80 10 Urine 500 790 390 Hemodialysis 2300 Other: Voiding Method Indwelling Catheter Indwelling Catheter Indwelling Catheter ABP, PAP, CO, CI - Last Documented Arterial Blood Pressure 141/70 Pulmonary Artery Pressure 12/5 Cardiac Output 4.2 Cardiac Index 2.6 - Labs CBC & Chem 7: 01/02/21 04:34 01/02/21 04:34 Labs: Abnormal Lab Results - Last 24 Hours (Table) 01/01/21 01/01/21 01/02/21 Range/Units 13:42 16:05 04:31 WBC (3.8-10.6) k/uL RBC (3.80-5.40) m/uL Hgb (11.4-16.0) gm/dL Hct (34.0-46.0) % RDW (11.5-15.5) % Plt Count (150-450) k/uL Neutrophils # (1.3-7.7) k/uL Lymphocytes # (1.0-4.8) k/uL Monocytes # (0-1.0) k/uL PT (9.0-12.0) sec INR (<1.2) Sodium (137-145) mmol/L BUN (7-17) mg/dL Creatinine (0.52-1.04) mg/dL Glucose (74-99) mg/dL POC Glucose (mg/dL) 130 H 116 H 115 H (75-99) mg/dL Total Bilirubin (0.2-1.3) mg/dL AST (14-36) U/L ALT (4-34) U/L Alkaline Phosphatase (38-126) U/L Total Protein (6.3-8.2) g/dL Albumin (3.5-5.0) g/dL 01/02/21 01/02/21 01/02/21 Range/Units 04:34 04:34 04:34 WBC 18.5 H (3.8-10.6) k/uL RBC 3.23 L (3.80-5.40) m/uL Hgb 9.9 L (11.4-16.0) gm/dL Hct 29.6 L (34.0-46.0) % RDW 16.2 H (11.5-15.5) % Plt Count 62 L D (150-450) k/uL Neutrophils # 15.3 H (1.3-7.7) k/uL Lymphocytes # 0.7 L (1.0-4.8) k/uL Monocytes # 1.8 H (0-1.0) k/uL PT 14.2 H (9.0-12.0) sec INR 1.4 H (<1.2) Sodium 136 L (137-145) mmol/L BUN 61 H (7-17) mg/dL Creatinine 3.37 H (0.52-1.04) mg/dL Glucose 113 H (74-99) mg/dL POC Glucose (mg/dL) (75-99) mg/dL Total Bilirubin 11.1 H (0.2-1.3) mg/dL AST 1204 H (14-36) U/L ALT 1176 H (4-34) U/L Alkaline Phosphatase 179 H (38-126) U/L Total Protein 5.5 L (6.3-8.2) g/dL Albumin 3.4 L (3.5-5.0) g/dL 01/02/21 01/02/21 Range/Units 08:13 11:19 WBC (3.8-10.6) k/uL RBC (3.80-5.40) m/uL Hgb (11.4-16.0) gm/dL Hct (34.0-46.0) % RDW (11.5-15.5) % Plt Count (150-450) k/uL Neutrophils # (1.3-7.7) k/uL Lymphocytes # (1.0-4.8) k/uL Monocytes # (0-1.0) k/uL PT (9.0-12.0) sec INR (<1.2) Sodium (137-145) mmol/L BUN (7-17) mg/dL Creatinine (0.52-1.04) mg/dL Glucose (74-99) mg/dL POC Glucose (mg/dL) 155 H 151 H (75-99) mg/dL Total Bilirubin (0.2-1.3) mg/dL AST (14-36) U/L ALT (4-34) U/L Alkaline Phosphatase (38-126) U/L Total Protein (6.3-8.2) g/dL Albumin (3.5-5.0) g/dL Microbiology - Last 24 Hours (Table) 03/25/21 15:19 Blood Culture - Preliminary Blood No Growth after 96 hours
[2021-01-02] MEDS: ASPIRIN 81 MG PO SCH (13:21)
[2021-01-02] MEDS: amLODIPine 5 MG TAB PO SCH (13:21)
[2021-01-02 16:36] LABS: Glucose,Whole Blood 116 mg/dL (75-99)
[2021-01-02 19:40] LABS: LD Isoenzymes 1 4 % (19-38); LD Isoenzymes 2 5 % (30-43); LD Isoenzymes 3 6 % (16-26); LD Isoenzymes 4 17 % (3-12); LD Isoenzymes 5 68 % (3-14)
[2021-01-02] MEDS: METOCLOPRAMIDE 5 MG/ML 2 ML VIAL IVP PRN (20:10)
[2021-01-02] MEDS: LEVOTHYROXINE 25 MCG TAB PO SCH (21:26)
[2021-01-02] MEDS: SENNOSIDES-DOCUSATE SODIUM 1 EACH TAB PO SCH (21:27)
[2021-01-02] MEDS: SERTRALINE 25 MG TAB PO SCH (21:27)
[2021-01-03 02:01] LABS: Glucose,Whole Blood 128 mg/dL (75-99)
[2021-01-03 04:20] LABS: Anisocytosis Slight; Basophils % (A) 0 %; Eosinophils # (A) 0.1 k/uL (0-0.7); Eosinophils % (A) 1 %; HCT 29.5 % (34.0-46.0); HGB 10.3 gm/dL (11.4-16.0); Lymphocytes # (A) 0.7 k/uL (1.0-4.8); Lymphocytes % (A) 4 %; MCH 31.7 pg (25.0-35.0); MCHC 34.8 g/dL (31.0-37.0); Monocytes # (A) 1.6 k/uL (0-1.0); Monocytes % (A) 10 %; Neutrophils # (A) 12.6 k/uL (1.3-7.7); Neutrophils % (A) 82 %; Poikilocytosis Slight; RBC 3.25 m/uL (3.80-5.40); RDW 16.2 % (11.5-15.5); WBC 15.5 k/uL (3.8-10.6)
[2021-01-03 04:28] LABS: Platelet Count 84 k/uL (150-450)
[2021-01-03 04:38] LABS: INR 1.2 (<1.2); Partial Thromboplastin Time 22.9 sec (22.0-30.0); Prothrombin Time 12.8 sec (9.0-12.0)
[2021-01-03 04:39] LABS: Albumin 3.3 g/dL (3.5-5.0); Calcium 8.9 mg/dL (8.4-10.2); Potassium 3.5 mmol/L (3.5-5.1); Total Bilirubin 6.6 mg/dL (0.2-1.3); Total Protein 5.5 g/dL (6.3-8.2)
[2021-01-03] MEDS: ONDANSETRON 4 MG/2 ML VIAL IVP PRN (06:40)
[2021-01-03] MEDS: POTASSIUM CHLORIDE ER 20 MEQ TAB.ER PO SCH ×4 (06:41→12:50)
[2021-01-03] MEDS: IPRATROPIUM-ALBUTEROL 3 ML NEB INHALATION SCH ×4 (07:56→20:50)
--- NOTE | 2021-01-03 08:10 | P.PN ---
Subjective Progress Note Date: 01/03/21 Principal diagnosis: Severe bicuspid aortic valve stenosis, coronary artery disease. 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, right internal carotid artery stenosis 50-79% per Doppler, previous tobacco dependence with moderate obstructive lung disease and preoperative FEV1 56% of predicted, preoperative elevation of AST and ALT, degenerative arthritis with chronic back pain, and fam chato history of colon cancer POD #8 aortic valve replacement with #21 mm Jackson Inspiris bioprosthetic aortic valve, coronary artery bypass grafting 1 with reverse saphenous vein graft off the aorta to the right coronary artery, clip ligation of the left atrial appendage with a 35 mm AtriClip, intraoperative transesophageal echocardiogram. Postoperative acute blood loss anemia, expected secondary to hemodilution and cardiopulmonary bypass pump, status post PRBC transfusion Hypotension requiring pressor use, remains off pressors Acute kidney injury secondary to hypoperfusion requiring initiation of dialysis Shock liver secondary to hypoperfusion, improving Lactic acidosis secondary to hypoperfusion, resolved Hypoxic respiratory failure requiring BiPAP, currently on nasal cannula Thrombocytopenia, improving A. fib with RVR, known common occurrence after open heart surgery, currently sinus rhythm Coagulopathy with DIC, improving The patient was seen and examined this morning the intensive care unit. She is currently sitting up in a recliner in no acute distress. States she feels better, nausea better controlled, pain controlled, IV fentanyl switched to by mouth OxyIR yesterday, patient continues to be very sleepy. She remains on nasal cannula, currently at 3 L with oxygen saturation in the mid 90s, left pleural effusion appears worse on chest x-ray. Currently in sinus rhythm and hemodynamically stable. WBC 15.5, hemoglobin 10.3, platelet count 84,000, BUN 85, creatinine 4.11, INR 1.2, AST 568, ALT 867, HIT panel negative, LDH isoenzymes resulted, LD 1 through 3 level, LD 4 and 5 elevated. No evidence of active bleeding. Low-dose aspirin restarted, Norvasc added for better blood pressure control. Urine output continues to increase, 100-150 mL/h overnight. No dialysis yesterday, she did receive Lasix per nephrology. Her abdomen remains soft but tender to palpation, she has had a bowel movement. Epicardial pacemaker wires, right pleural chest tube, right radial arterial line, right femoral dialysis catheter all remain. She has been able to stand to move from the bed to the recliner with to assist, generalized weakness remains. Family continues to be updated daily Objective - Vital Signs Vital signs: Vital Signs Temp 97.6 F 01/03/21 04:00 Pulse 72 01/03/21 07:00 Resp 17 01/03/21 07:00 BP 183/87 01/03/21 07:00 Pulse Ox 95 01/03/21 07:00 Intake & Output 01/02/21 01/03/21 01/03/21 18:59 06:59 18:59 Intake Total 181 3 Output Total 1160 1720 150 Balance -979 -1717 -150 Weight 65.5 kg Intake: IV 56 3 D5.9 20 pressure bags 36 3 Oral 125 Output: Chest Tube Drainage 45 70 50 Right Pleural 45 70 50 Urine 1115 1650 100 Other: Voiding Method Indwelling Catheter Indwelling Catheter ABP, PAP, CO, CI - Last Documented Arterial Blood Pressure 158/59 Pulmonary Artery Pressure 12/5 Cardiac Output 4.2 Cardiac Index 2.6 - Exam CONSTITUTIONAL: Appears comfortable, cooperative, sleepy RESPIRATORY: Lungs sounds diminished bilaterally, left greater than right. Respirations even, nonlabored. Currently on 3 L nasal cannula with oxygen saturation mid 90s. Strong nonproductive cough. Able to achieve 500 mL on her incentive spirometry. CARDIOVASCULAR: S1, S2 present. Regular rate and rhythm, sinus rhythm with first-degree AV block on telemetry, heart rate in the 70s. Sternum stable. Palpable peripheral pulses bilaterally. Trace up her extremity edema present. No calf pain or tenderness noted. Heart hugger in place. Antiembolism stockings, SCDs present. GASTROINTESTINAL: Abdomen soft, nontender, nondistended. Active bowel sounds present 4 quadrants. Positive bowel movement. GENITOURINARY: Acevedo present draining clear yellow urine. Output overnight 100-150 mL/hr INTEGUMENTARY: Skin is warm and dry. Anterior chest incision well approximated and covered with dry intact dressing. Right lower extremity EVH site well approximated without redness or drainage. Few scattered areas of petechiae, ecchymosis to the right thigh which is expected, no increase in size NEUROLOGIC: Cranial nerves II through XII intact MUSKULOSKELETAL: Able to move all extremities, strength equal bilaterally but weak PSYCHIATRIC: Alert and oriented to person place and time, appropriate affect, intact judgment and insight INVASIVE LINES AND TUBES: Right pleural chest tube present and connected to wall suction, no air leak present. Right tube with 130 mL serosanguineous drainage in the last 24 hours. A/V epicardial pacemaker wires present, grounded. Right radial arterial line, right femoral dialysis catheter present. - Allied health notes Allied health notes reviewed: nursing - Labs CBC & Chem 7: 01/03/21 04:00 01/03/21 04:00 Labs: Abnormal Lab Results - Last 24 Hours (Table) 12/29/20 01/02/21 01/02/21 Range/Units 21:08 08:13 11:19 WBC (3.8-10.6) k/uL RBC (3.80-5.40) m/uL Hgb (11.4-16.0) gm/dL Hct (34.0-46.0) % RDW (11.5-15.5) % Plt Count (150-450) k/uL Neutrophils # (1.3-7.7) k/uL Lymphocytes # (1.0-4.8) k/uL Monocytes # (0-1.0) k/uL PT (9.0-12.0) sec INR (<1.2) Sodium (137-145) mmol/L Chloride (98-107) mmol/L BUN (7-17) mg/dL Creatinine (0.52-1.04) mg/dL Glucose (74-99) mg/dL POC Glucose (mg/dL) 155 H 151 H (75-99) mg/dL Total Bilirubin (0.2-1.3) mg/dL AST (14-36) U/L ALT (4-34) U/L Alkaline Phosphatase (38-126) U/L LD 1 4 L (19-38) % LD 2 5 L (30-43) % LD 3 6 L (16-26) % LD 4 17 H (3-12) % LD 5 68 H (3-14) % Total Protein (6.3-8.2) g/dL Albumin (3.5-5.0) g/dL 01/02/21 01/03/21 01/03/21 Range/Units 16:34 02:00 04:00 WBC 15.5 H (3.8-10.6) k/uL RBC 3.25 L (3.80-5.40) m/uL Hgb 10.3 L (11.4-16.0) gm/dL Hct 29.5 L (34.0-46.0) % RDW 16.2 H (11.5-15.5) % Plt Count 84 L (150-450) k/uL Neutrophils # 12.6 H (1.3-7.7) k/uL Lymphocytes # 0.7 L (1.0-4.8) k/uL Monocytes # 1.6 H (0-1.0) k/uL PT (9.0-12.0) sec INR (<1.2) Sodium (137-145) mmol/L Chloride (98-107) mmol/L BUN (7-17) mg/dL Creatinine (0.52-1.04) mg/dL Glucose (74-99) mg/dL POC Glucose (mg/dL) 116 H 128 H (75-99) mg/dL Total Bilirubin (0.2-1.3) mg/dL AST (14-36) U/L ALT (4-34) U/L Alkaline Phosphatase (38-126) U/L LD 1 (19-38) % LD 2 (30-43) % LD 3 (16-26) % LD 4 (3-12) % LD 5 (3-14) % Total Protein (6.3-8.2) g/dL Albumin (3.5-5.0) g/dL 01/03/21 01/03/21 Range/Units 04:00 04:00 WBC (3.8-10.6) k/uL RBC (3.80-5.40) m/uL Hgb (11.4-16.0) gm/dL Hct (34.0-46.0) % RDW (11.5-15.5) % Plt Count (150-450) k/uL Neutrophils # (1.3-7.7) k/uL Lymphocytes # (1.0-4.8) k/uL Monocytes # (0-1.0) k/uL PT 12.8 H (9.0-12.0) sec INR 1.2 H (<1.2) Sodium 135 L (137-145) mmol/L Chloride 95 L (98-107) mmol/L BUN 85 H (7-17) mg/dL Creatinine 4.11 H (0.52-1.04) mg/dL Glucose 113 H (74-99) mg/dL POC Glucose (mg/dL) (75-99) mg/dL Total Bilirubin 6.6 H (0.2-1.3) mg/dL AST 568 H (14-36) U/L ALT 867 H (4-34) U/L Alkaline Phosphatase 256 H (38-126) U/L LD 1 (19-38) % LD 2 (30-43) % LD 3 (16-26) % LD 4 (3-12) % LD 5 (3-14) % Total Protein 5.5 L (6.3-8.2) g/dL Albumin 3.3 L (3.5-5.0) g/dL Microbiology - Last 24 Hours (Table) 12/28/20 15:19 Blood Culture - Preliminary Blood No Growth after 120 hours - Imaging and Cardiology Chest x-ray: image reviewed Assessment and Plan Assessment: 1. Severe bicuspid aortic valve stenosis, status post aortic valve replacement with #21 mm Jackson Inspiris bioprosthetic aortic valve 2. Coronary artery disease, status post single vessel CABG 3. History of hypertension 4. Hyperlipidemia, treated, cholesterol 111, LDL 38 5. Hypothyroid 6. 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 Right internal carotid artery stenosis 50-79% per Doppler 8. Previous tobacco dependence with moderate obstructive lung disease and preoperative FEV1 56% of predicted 9. Preoperative elevation of AST and ALT with transaminitis postoperatively, likely from hypotension 10. Degenerative arthritis with chronic back pain 11. Family history of colon cancer 12. Postoperative acute blood loss anemia, expected secondary to hemodilution and cardiopulmonary bypass pump 13. Hypotension requiring pressor use 14. Acute kidney injury secondary to hypoperfusion requiring initiation of dialysis 15. Shock liver secondary to hypoperfusion 16. Lactic acidosis secondary to hypoperfusion 17. Hypoxic respiratory failure requiring BiPAP 18. Thrombocytopenia 19. A. fib with RVR, known common occurrence after open heart surgery, status post exclusion of the left atrial appendage 20. Coagulopathy with DIC Plan: 1. Statin, Plavix on hold, will restart when able. Low-dose aspirin restarted. Continue beta kiki, will increase as tolerated. Home dose Norvasc restarted. 2. Wean O2 as tolerated. Bronchodilators per script editor 3. Increase activity, up to chair, ambulate as tolerated. PT/OT/cardiac rehab consulted 4. Will monitor daily labs and chest x-rays. Electrolyte replacement per protocol. Will need left pleural effusion addressed with thoracentesis or pigtail catheter 5. GI/DVT prophylaxis 6. Pain control current per current medication regimen. Avoid narcotics as much as possible, will transition to oral Tylenol when able 7. Insulin management per primary care service. Patient is not diabetic, hemoglobin A1c 5.7% 8. Nephrology consulted, appreciate recommendations. 9. Hematology consulted for thrombocytopenia, elevated liver function. HIT panel negative 10. Continue Acevedo for strict accurate intake and output. Daily weight 11. Will feed patient as tolerated. Ensure supplements ordered, encouraged increase nutrition 12. Discontinue arterial line 13. Likely will place transfer orders for 3 S. cardiac stepdown unit 14. More recommendations to follow based on patient's progress Time with Patient: Greater than 30
--- NOTE | 2021-01-03 09:05 | P.PN ---
Subjective Patient is seen in follow-up for acute kidney injury. Creatinine rising - 4.11 today. Nonoliguric. Urine output at least 100 mL per hour. She did receive a dose of IV Lasix yesterday. Last hemodialysis on January 01. Currently on 3 L nasal cannula. Denies chest pain or shortness of breath. Oral intake fair. Scheduled for thoracentesis today. Vital signs are stable. General: The patient appeared well nourished and normally developed. HEENT: Head exam is unremarkable. Neck is without jugular venous distension. LUNGS: Breath sounds decreased. HEART: Rate and Rhythm are regular. ABDOMEN: Soft, no distention. EXTREMITITES: No edema. Objective - Vital Signs Vital signs: Vital Signs Temp 97.6 F 01/03/21 04:00 Pulse 70 01/03/21 08:10 Resp 17 01/03/21 07:00 BP 183/87 01/03/21 07:00 Pulse Ox 95 01/03/21 07:00 Intake & Output 01/02/21 01/03/21 01/03/21 18:59 06:59 18:59 Intake Total 181 3 Output Total 1160 1720 150 Balance -979 -1717 -150 Weight 65.5 kg Intake: IV 56 3 D5.9 20 pressure bags 36 3 Oral 125 Output: Chest Tube Drainage 45 70 50 Right Pleural 45 70 50 Urine 1115 1650 100 Other: Voiding Method Indwelling Catheter Indwelling Catheter ABP, PAP, CO, CI - Last Documented Arterial Blood Pressure 158/59 Pulmonary Artery Pressure 12/5 Cardiac Output 4.2 Cardiac Index 2.6 - Labs CBC & Chem 7: 01/03/21 04:00 01/03/21 04:00 Labs: Abnormal Lab Results - Last 24 Hours (Table) 12/29/20 01/02/21 01/02/21 Range/Units 21:08 11:19 16:34 WBC (3.8-10.6) k/uL RBC (3.80-5.40) m/uL Hgb (11.4-16.0) gm/dL Hct (34.0-46.0) % RDW (11.5-15.5) % Plt Count (150-450) k/uL Neutrophils # (1.3-7.7) k/uL Lymphocytes # (1.0-4.8) k/uL Monocytes # (0-1.0) k/uL PT (9.0-12.0) sec INR (<1.2) Sodium (137-145) mmol/L Chloride (98-107) mmol/L BUN (7-17) mg/dL Creatinine (0.52-1.04) mg/dL Glucose (74-99) mg/dL POC Glucose (mg/dL) 151 H 116 H (75-99) mg/dL Total Bilirubin (0.2-1.3) mg/dL AST (14-36) U/L ALT (4-34) U/L Alkaline Phosphatase (38-126) U/L LD 1 4 L (19-38) % LD 2 5 L (30-43) % LD 3 6 L (16-26) % LD 4 17 H (3-12) % LD 5 68 H (3-14) % Total Protein (6.3-8.2) g/dL Albumin (3.5-5.0) g/dL 01/03/21 01/03/21 01/03/21 Range/Units 02:00 04:00 04:00 WBC 15.5 H (3.8-10.6) k/uL RBC 3.25 L (3.80-5.40) m/uL Hgb 10.3 L (11.4-16.0) gm/dL Hct 29.5 L (34.0-46.0) % RDW 16.2 H (11.5-15.5) % Plt Count 84 L (150-450) k/uL Neutrophils # 12.6 H (1.3-7.7) k/uL Lymphocytes # 0.7 L (1.0-4.8) k/uL Monocytes # 1.6 H (0-1.0) k/uL PT 12.8 H (9.0-12.0) sec INR 1.2 H (<1.2) Sodium (137-145) mmol/L Chloride (98-107) mmol/L BUN (7-17) mg/dL Creatinine (0.52-1.04) mg/dL Glucose (74-99) mg/dL POC Glucose (mg/dL) 128 H (75-99) mg/dL Total Bilirubin (0.2-1.3) mg/dL AST (14-36) U/L ALT (4-34) U/L Alkaline Phosphatase (38-126) U/L LD 1 (19-38) % LD 2 (30-43) % LD 3 (16-26) % LD 4 (3-12) % LD 5 (3-14) % Total Protein (6.3-8.2) g/dL Albumin (3.5-5.0) g/dL 01/03/21 Range/Units 04:00 WBC (3.8-10.6) k/uL RBC (3.80-5.40) m/uL Hgb (11.4-16.0) gm/dL Hct (34.0-46.0) % RDW (11.5-15.5) % Plt Count (150-450) k/uL Neutrophils # (1.3-7.7) k/uL Lymphocytes # (1.0-4.8) k/uL Monocytes # (0-1.0) k/uL PT (9.0-12.0) sec INR (<1.2) Sodium 135 L (137-145) mmol/L Chloride 95 L (98-107) mmol/L BUN 85 H (7-17) mg/dL Creatinine 4.11 H (0.52-1.04) mg/dL Glucose 113 H (74-99) mg/dL POC Glucose (mg/dL) (75-99) mg/dL Total Bilirubin 6.6 H (0.2-1.3) mg/dL AST 568 H (14-36) U/L ALT 867 H (4-34) U/L Alkaline Phosphatase 256 H (38-126) U/L LD 1 (19-38) % LD 2 (30-43) % LD 3 (16-26) % LD 4 (3-12) % LD 5 (3-14) % Total Protein 5.5 L (6.3-8.2) g/dL Albumin 3.3 L (3.5-5.0) g/dL Microbiology - Last 24 Hours (Table) 12/28/20 15:19 Blood Culture - Preliminary Blood No Growth after 120 hours Assessment and Plan Plan: Assessment: 1. Acute kidney injury secondary to ATN, post CABG. last hemodialysis January 01. Renal function stable. Nonoliguric. However creatinine is rising - 4.11 today. Baseline creatinine near 1. 2. Status post CABG and aortic valve replacement on 12/26/2020. 3. Acute diastolic CHF and moderate tricuspid regurgitation and pulmonary hyp ertension. 4. Volume overload. Improved with ultrafiltration and improved urine output. 5. Acute blood loss anemia status post blood transfusion this admission. 6. Shock liver. 7. Hypokalemia from diuresis. 8. Benign hypertension. Plan: Hold off on hemodialysis today. Hold diuretics today as well. Encourage oral intake. Continue to monitor renal function and urine output. Continue to assess for renal replacement therapy on daily basis. Replace potassium. Check magnesium level as well. Add hydralazine 25 mg 3 times daily. To be held for systolic blood pressure less than 125.
--- NOTE | 2021-01-03 09:20 | XR ---
EXAMINATION TYPE: XR chest 1V portable DATE OF EXAM: 01/03/2021 COMPARISON: 01/02/2021 INDICATION: Left effusion TECHNIQUE: Single frontal view of the chest is obtained. FINDINGS: The heart size is prominent. The pulmonary vasculature is normal. There is a large left pleural fluid collection. Right-sided chest tube is present. Small apical pneumothorax may be present. Some artifact overlies t he upper trachea. Epicardial leads appear to be present. Sternotomy wires are present from cardiac valve surgery IMPRESSION: 1. Increasing large left pleural effusion. 2. Lines and catheters discussed above. 3. A small right apical pneumothorax may be present.
[2021-01-03] MEDS: ASPIRIN 81 MG PO SCH (09:26)
[2021-01-03] MEDS: amLODIPine 5 MG TAB PO SCH (09:26)
[2021-01-03] MEDS: PANTOPRAZOLE 40 MG/10 ML VIAL IVP SCH ×2 (09:26→22:09)
[2021-01-03] MEDS: METOPROLOL TARTRATE 25 MG TAB PO SCH ×2 (09:26→22:09)
--- NOTE | 2021-01-03 09:35 | XR ---
"EXAMINATION TYPE: XR chest 1V portable DATE OF EXAM: 01/03/2021 COMPARISON: Chest x-ray same dated earlier time HISTORY: Status post thoracentesis TECHNIQUE: Single frontal view of the chest is obtained. FINDINGS: There is overlying artifact at the left lung apex. There may be a small apical pneumothora x. There is improved aeration within the left lung. Subcutaneous emphysema is present over the left l ower chest. Right-sided chest tube remains in place. Patient is post median sternotomy and cardiac va lve replacement, left atrial appendage clip placement. Heart is enlarged. IMPRESSION: Possible small left apical pneumothorax. Overlying artifact obscures detail. Consider fo llow-up. A [place] critical message alert has been initiated for Elisabeth Pérez MD~[id number] via the [employer] 0 | Critical Results System on 01/03/2021 9:32 AM. This message alert has been sent to Elisabeth Pérez MD ~[id number] via the preferences provided by the clinician for the receipt of Radiology Critical Findings. Message ID [id number]."
[2021-01-03] MEDS ORDERED: Potassium Replacement Protocol 1 EACH MISC MISCELLANE PRN (10:13)
[2021-01-03 10:52] LABS: Glucose,Whole Blood 113 mg/dL (75-99)
--- NOTE | 2021-01-03 10:54 | P.PN ---
Subjective Progress Note Date: 01/03/21 Principal diagnosis: Aortic valve replacement and CABG 1 vessel postoperative day #8 2020 the patient is being seen for a follow-up. Awake and alert, lethargic. Response to the moving all 4 extremities without any limitation. She remains on BiPAP at a pressure of 12/5 with an FiO2 of 50%. Generating a tidal volumes between 350 and 400 with a respiratory rate in the mid 20s. Abdomen is ventilation is around 8 L per minute. The patient has the chest tube still in place both the right pleural and mediastinal chest tube. The output has been 2 40 mL overnight over the past 12 hours and output is still bloody. She made minimal amount of urine output probably in the order of 50 mL all night. Hemodynamically stable. Off Agustín-Synephrine. She converted into sinus rhythm with a first-degree AV block. Chest x-ray showing some mild four-vessel congestion and all of the chest tubes are in place. Hemoglobin is at 8.5 with a platelet count of 25 and a coagulation profile shows an INR of 2.3 with a PT of 22.3 and a PTT of 32, lactic acid level is down to 1.8, BUN is 41 with a creatinine of 2.5 and a sodium of 136 with a potassium of 3.9. Glucose is 125. Shock liver is gradually improving and the AST is down to 4112 and ALT is down to 2017. She underwent hemodialysis yesterday without any major complications. He dialyzes catheter is still present in her right groin. No signs of any bleeding. No other issues for now. She is arousable. She follows commands and answers questions appropriately. No other significant events overnight. Note that her follow-up digoxin level was down to 2.1. She got transfused with platelets yesterday. Patient was reevaluated today on 01/01/2021, patient remains in the ICU, fully awake, alert, in no distress. Patient is on 3 L nasal cannula. She denies any shortness of breath, continues to have a right sided chest tube in place, she has mostly symptoms of surgical pain, and intermittent episodes of nausea. P atient is off pressors, she is in sinus rhythm with first-degree AV block, remains on IV Zosyn. Her labs were reviewed, platelets remained low at 63,000 BUN is 52 creatinine 3.31, INR is 1.8. Liver enzymes remain elevated. Urine output about 20 mL per hour overnight. She received dialysis yesterday for the third time. Chest x-ray today showed a left-sided pneumothorax and good sized left-sided pleural effusion, discussed this issue with thoracic surgery planned to observe for now, no plans for thoracentesis or chest tube placement. I prefer. Chest tube placement specially with her platelets being as low. Patient was reevaluated today on 01/02/2021, remains in the ICU, she is on 3 L na debbie cannula, patient received hemodialysis yesterday, and 2.2 L were removed. Today her chest x-ray continues to show left lower lobe atelectasis and pleural effusion, she continues to have a small left-sided apical pneumothorax, her platelets are down to 62,000. Liver function is at this remain elevated. But seems to be trending down. Her IV fluids at KVO. Patient is in atrial fibrillation with controlled rate. Right-sided chest tube remains in place. Patient is not in any distress, again she is on 3 L nasal cannula. WBC count today is 18.5 hemoglobin is 9.9 her electrolytes are normal renal profile showed a BUN of 61 creatinine of 3.37. Patient was reevaluated today on 01/03/2021, remains in the ICU, on few liters nasal cannula, patient is feeling better, breathing easier, however her chest x- ray clearly showed a good sized left-sided pleural effusion worsening compared to previous x-rays. Patient also had a left-sided apical pneumothorax which is not clearly seen mostly because of the worsening pleural effusion noted on the left side. Her WBC count today is 15.5 hemoglobin is 10.3 platelets are up to 84,000. PT and PTT are normal. Lites are normal. Renal profile is worse with 85 BUN and creatinine 4.11. Patient is on hemodialysis. After reviewing the chest x-ray, discussed the patient's condition with the thoracic surgery/Dr. Gaffney, and recommended left-sided thoracentesis which was done, and I was able to drain 1.5 L of gross blood from the left pleural space. After the procedure he can clearly see the left apical pneumothorax which was present all along. And it is not a complication related to the thoracentesis. Objective - Vital Signs Vital signs: Vital Signs Temp 96.3 F L 01/03/21 08:00 Pulse 71 01/03/21 10:00 Resp 17 03/31/21 10:00 BP 148/78 01/03/21 10:00 Pulse Ox 94 L 01/03/21 10:00 Intake & Output 01/02/21 01/03/21 01/03/21 18:59 06:59 18:59 Intake Total 181 3 3 Output Total 1160 1720 685 Balance -979 -1717 -682 Weight 65.5 kg Intake: IV 56 3 3 D5.9 20 pressure bags 36 3 3 Oral 125 Output: Chest Tube Drainage 45 70 110 Right Pleural 45 70 110 Urine 1115 1650 575 Other: Voiding Method Indwelling Catheter Indwelling Catheter Indwelling Catheter ABP, PAP, CO, CI - Last Documented Arterial Blood Pressure 194/64 Pulmonary Artery Pressure 12/5 Cardiac Output 4.2 Cardiac Index 2.6 - Exam Physical Exam: Revealed a 65-year-old female in no distress, on 4 L nasal cannula. Head: Atraumatic, normocephalic. HEENT:[Neck is supple.] [No neck masses.] [No thyromegaly.] [No JVD.] PERRLA, EOMI, nonicteric. Right internal jugular cordis noted in place. And she has a right femoral dialysis catheter Chest: [Symmetrical chest expansion, diminished breath sounds at the bases bilaterally. Right-sided chest tube noted, connected to wall suction, no air leak present. Cardiac Exam: [Normal S1 and S2, no S3 gallop, no murmur.] Abdomen: [Soft, nontender, no megaly, no rebound, no guarding, normal bowel sounds.] Extremities: [No clubbing, no edema, no cyanosis.] Neurological Exam: [No focal neurologic deficit.] Alert and oriented 3. Psychiatric: Normal mood, affect and normal mental status examination. Skin: No rashes. petechiae and ecchymosis in the right thigh - Labs CBC & Chem 7: 01/03/21 04:00 01/03/21 04:00 Labs: Abnormal Lab Results - Last 24 Hours (Table) 12/29/20 01/02/21 01/02/21 Range/Units 21:08 11:19 16:34 WBC (3.8-10.6) k/uL RBC (3.80-5.40) m/uL Hgb (11.4-16.0) gm/dL Hct (34.0-46.0) % RDW (11.5-15.5) % Plt Count (150-450) k/uL Neutrophils # (1.3-7.7) k/uL Lymphocytes # (1.0-4.8) k/uL Monocytes # (0-1.0) k/uL PT (9.0-12.0) sec INR (<1.2) Sodium (137-145) mmol/L Chloride (98-107) mmol/L BUN (7-17) mg/dL Creatinine (0.52-1.04) mg/dL Glucose (74-99) mg/dL POC Glucose (mg/dL) 151 H 116 H (75-99) mg/dL Total Bilirubin (0.2-1.3) mg/dL AST (14-36) U/L ALT (4-34) U/L Alkaline Phosphatase (38-126) U/L LD 1 4 L (19-38) % LD 2 5 L (30-43) % LD 3 6 L (16-26) % LD 4 17 H (3-12) % LD 5 68 H (3-14) % Total Protein (6.3-8.2) g/dL Albumin (3.5-5.0) g/dL 01/03/21 01/03/21 01/03/21 Range/Units 02:00 04:00 04:00 WBC 15.5 H (3.8-10.6) k/uL RBC 3.25 L (3.80-5.40) m/uL Hgb 10.3 L (11.4-16.0) gm/dL Hct 29.5 L (34.0-46.0) % RDW 16.2 H (11.5-15.5) % Plt Count 84 L (150-450) k/uL Neutrophils # 12.6 H (1.3-7.7) k/uL Lymphocytes # 0.7 L (1.0-4.8) k/uL Monocytes # 1.6 H (0-1.0) k/uL PT 12.8 H (9.0-12.0) sec INR 1.2 H (<1.2) Sodium (137-145) mmol/L Chloride (98-107) mmol/L BUN (7-17) mg/dL Creatinine (0.52-1.04) mg/dL Glucose (74-99) mg/dL POC Glucose (mg/dL) 128 H (75-99) mg/dL Total Bilirubin (0.2-1.3) mg/dL AST (14-36) U/L ALT (4-34) U/L Alkaline Phosphatase (38-126) U/L LD 1 (19-38) % LD 2 (30-43) % LD 3 (16-26) % LD 4 (3-12) % LD 5 (3-14) % Total Protein (6.3-8.2) g/dL Albumin (3.5-5.0) g/dL 01/03/21 Range/Units 04:00 WBC (3.8-10.6) k/uL RBC (3.80-5.40) m/uL Hgb (11.4-16.0) gm/dL Hct (34.0-46.0) % RDW (11.5-15.5) % Plt Count (150-450) k/uL Neutrophils # (1.3-7.7) k/uL Lymphocytes # (1.0-4.8) k/uL Monocytes # (0-1.0) k/uL PT (9.0-12.0) sec INR (<1.2) Sodium 135 L (137-145) mmol/L Chloride 95 L (98-107) mmol/L BUN 85 H (7-17) mg/dL Creatinine 4.11 H (0.52-1.04) mg/dL Glucose 113 H (74-99) mg/dL POC Glucose (mg/dL) (75-99) mg/dL Total Bilirubin 6.6 H (0.2-1.3) mg/dL AST 568 H (14-36) U/L ALT 867 H (4-34) U/L Alkaline Phosphatase 256 H (38-126) U/L LD 1 (19-38) % LD 2 (30-43) % LD 3 (16-26) % LD 4 (3-12) % LD 5 (3-14) % Total Protein 5.5 L (6.3-8.2) g/dL Albumin 3.3 L (3.5-5.0) g/dL Microbiology - Last 24 Hours (Table) 12/28/20 15:19 Blood Culture - Preliminary Blood No Growth after 120 hours Assessment and Plan Assessment: Impression: Status post aortic valve replacement and single-vessel bypass surgery postoperative day #8 Shock liver secondary to cardiogenic shock and severe metabolic acidosis secondary to cardiogenic shock, resolving. Coagulopathy secondary to shocked liver, doubt H IT syndrome. Hyperlipidemia. Hypothyroidism. History of CVA. Episodes of atrial flutter and RVR, presently in normal sinus rhythm. Spontaneous Left-sided pneumothorax, exact etiology is not clear Acute kidney injury and renal failure secondary to cardiogenic shock/cardi orenal, patient has been on hemodialysis 3, being followed by nephrology. 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 Left sided hemothorax, status post left-sided thoracentesis on 01/03/2021, and 1.5 L of gross blood removed from the left pleural space. Recommendation: Repeat chest x-ray in few hours after the thoracentesis, patient may or may not require chest tube placement depending on whether the patient develops recurrent pneumothorax or worsening left-sided pneumothorax. Continue present supportive care measures. Continue beta blockers. Titrate oxygen accordingly. Continue bronchodilators. Continue to monitor left-sided pneumothorax and pleural effusion for now. Continue insulin Continue GI and DVT prophylaxis. We'll continue to follow. Time with Patient: Less than 30
--- NOTE | 2021-01-03 11:00 | P.PN ---
Subjective Progress Note Date: 01/03/21 HISTORY OF PRESENT ILLNESS: 12/27/2020 This is a 65-year-old female with a past medical history significant for CVA/TIA, hypertension, hyperlipidemia, nicotine dependence, and hypothyroidism. Patient follows in the office with Dr. Lee. We have been asked to see the patient in consultation for postoperative care. Patient examined this morning in the intensive care unit. Patient is status post aortic valve replacement and CABG 1: SVG to RCA. Postop day #1. Patient is sitting up in the chair. Patient is hemodynamically stable and not requiring any vasopressor support. Patient is on 5 L nasal cannula with oxygen saturations greater than 92%. The patient has a weak nonproductive cough. She denies chest pain or pressure. She denies shortness of breath. She reports nausea this morning. No episodes of emesis. She is receiving 500cc albumin at the time of examination. Telemetry reveals sinus mechanism. Chest xray small residual right apical pneumothorax may be present. Cardiomegaly. Small left pleural effusion. Laboratory data: WBC 15.2. Hemoglobin 8.0. Platelet count 160. Sodium 137. Potassium 4.8. BUN 19. Creatinine 0.78. Magnesium 2.2. Current home cardiac medications include amlodipine 5 mg daily, metoprolol tartrate 12.5 mg twice a day, Lipitor 40 mg daily, and aspirin 81 mg daily FIDEL: 12/15/2020 revealing severe aortic stenosis which is calcific in nature with mild eccentric aortic regurgitation. Mild mitral and tricuspid regurgitation. Biatrial enlargement. No clot in left atrial appendage. No PFO. Normal LV function. Cardiac catheterization: 12/15/2020 revealing 80% lesion of RCA. 12/28/2020 Patient is s/p CABG x 1 and AVR. POD #1. Patient examined this morning in the ICU. Patient developed hypotension, lactic acidosis, shortness of breath, and increasing oxygen requirement overnight. Patient was placed on a BiPAP. She received sodium bicarb. She is currently on dopamine and Primacor. Hemoglobin is 6.8. Patient received 1 unit packed RBCs. Blood pressure 102/39. Heart rate in the 70s. 12/29/2020 Patient examined this morning in the intensive care unit. Patient remains on a bipap. Overnight, the patient had decreased urine output. Patient was given IV lasix and subsequently started on a lasix drip. Patient with worsening hypotension and has been started on vasopressors. Patient also went into afib with RVR this morning. She has been started on Digoxin. Hemoglobin 6.0. Platelet count 26. INR 3.3. BUN 53. Creatinine 2.77. AST 11,442. ALT 3572. Patient is to receive a hemodialysis catheter today and will be started on hemodialysis. 12/30/2020 Patient examined this morning in the intensive care unit. She remains on a BiPAP. patient states her breathing has improved this morning. Patient is curre ntly maintaining sinus mechanism on telemetry. Patient underwent hemodialysis yesterday with removal of 3 L. she is also receiving hemodialysis again this morning. She remains on vasopressor support with Agustín-Synephrine. Hemoglobin 9.0. Platelet count 24. BUN 33. Creatinine 2.18. AST 8066. ALT 2707. 12/31/2020 Patient examined this morning in the intensive care unit. Patient remains on a BiPAP. Patient is awake and alert. Patient remains in sinus mechanism on telemetry. Patient's vasopressors have been weaned off. Patient received hemodialysis for the second time yesterday. Hemoglobin 8.5. Platelet count 25. INR 2.3. BUN 41. Creatinine 2.56. AST 4112. ALT 2118. 01/01/2021 Patient examined this morning. She remains in intensive care unit. Patient has been weaned off BiPAP to nasal cannula. She denies chest pain or pressure. Denies shortness of breath. Patient remains off vasopressors. She received hemodialysis yesterday for the third time. Creatinine 3.31 today. BUN 52. LFTs are trending downward. AST 2123. ALT 1484. INR 1.8. Hemoglobin 9.1. Platelet count 33. She remains in sinus mechanism. Chest x-ray completed this morning revealed diminished lung volumes and suspected worsening pulmonary vascular congestion. Increasing moderate left pleural effusion with adjacent atelectasis and/or consolidation. Fine linear density projecting across the left apex, suspected external artifact rather than a small pneumothorax. Short interval follow-up recommended to reassess. 01/02/2021 Patient examined this morning in the intensive care unit. She is sitting up in the chair. She went back into afib yesterday. She remains in afib with controlled ventricular rate this morning. She complains of nausea. She received dialysis yesterday for the 3rd time. No plans for dialysis today but did receive a dose of IV lasix per nephrology. She remains off vasopressors. 01/03/2021 Patient examined this morning the intensive care unit. She is sitting up in the chair. Patient states her pain is tolerable this morning. She also reports improvement in her nausea. Patient has converted back to sinus rhythm. She remains off vasopressors. She received a dose of IV Lasix yesterday and has been diuresing well. Blood pressure 148/78. BUN 85. Creatinine 4.11. Chest x-ray this morning reveals increasing large left pleural effusion. Small right apical pneumothorax may be present. PHYSICAL EXAM: VITAL SIGNS: Reviewed. GENERAL: Well-developed in no acute distress. HEENT: Head is normocephalic. Pupils are equal, round. Sclerae anicteric. Mucous membranes of the mouth are moist. Neck supple. No JVD or thyromegaly LUNGS: Respirations even and unlabored. Lungs diminished bilaterally. HEART: Regular rate and rhythm. S1 and S2 heard. Chest tube noted with no evidence of air leak. Heart hugger noted. EXTREMITIES: Normal range of motion. No clubbing or cyanosis. Peripheral pulses intact. Trace bilateral lower extremity edema ASSESSMENT: Severe aortic stenosis, s/p bioprosthetic aortic valve replacement, 12/26/2020 Coronary artery disease, s/p CABG x 1 SVG to RCA, 12/26/2020 New onset paroxysmal atrial fibrillation with RVR Acute hypoxic respiratory failure, requiring bipap Thrombocytopenia Coagulopathy, INR 3.3, improving Acute blood loss anemia Lactic acidosis Transaminitis, suspect secondary to hypotension Acute kidney injury Hypertension Hyperlipidemia CVA with residual right-sided blindness Hypothyroidism Former nicotine dependence Large left pleural effusion PLAN: Continue postoperative management per CTS Continue telemetry monitoring Statin held due to elevated LFTs Aspirin resumed this morning. Plavix remains on hold Continue beta kiki as tolerated Norvasc added for optimal blood pressure control Monitor hemoglobin Hematology following for thrombocytopenia Nephrology following. Further recommendations pending patient course Nurse practitioner note has been reviewed by physician. Signing provider agrees with the documented findings, assessment, and plan of care. Objective - Vital Signs Vital signs: Vital Signs Temp 96.3 F L 01/03/21 08:00 Pulse 71 01/03/21 10:00 Resp 17 01/03/21 10:00 BP 148/78 01/03/21 10:00 Pulse Ox 94 L 01/03/21 10:00 Intake & Output 01/02/21 01/03/21 01/03/21 18:59 06:59 18:59 Intake Total 181 3 3 Output Total 1160 1720 685 Balance -979 -1717 -682 Weight 65.5 kg Intake: IV 56 3 3 D5.9 20 pressure bags 36 3 3 Oral 125 Output: Chest Tube Drainage 45 70 110 Right Pleural 45 70 110 Urine 1115 1650 575 Other: Voiding Method Indwelling Catheter Indwelling Catheter Indwelling Catheter ABP, PAP, CO, CI - Last Documented Arterial Blood Pressure 194/64 Pulmonary Artery Pressure 12/5 Cardiac Output 4.2 Cardiac Index 2.6 - Labs CBC & Chem 7: 01/03/21 04:00 01/03/21 04:00 Labs: Abnormal Lab Results - Last 24 Hours (Table) 12/29/20 01/02/21 01/02/21 Range/Units 21:08 11:19 16:34 WBC (3.8-10.6) k/uL RBC (3.80-5.40) m/uL Hgb (11.4-16.0) gm/dL Hct (34.0-46.0) % RDW (11.5-15.5) % Plt Count (150-450) k/uL Neutrophils # (1.3-7.7) k/uL Lymphocytes # (1.0-4.8) k/uL Monocytes # (0-1.0) k/uL PT (9.0-12.0) sec INR (<1.2) Sodium (137-145) mmol/L Chloride (98-107) mmol/L BUN (7-17) mg/dL Creatinine (0.52-1.04) mg/dL Glucose (74-99) mg/dL POC Glucose (mg/dL) 151 H 116 H (75-99) mg/dL Total Bilirubin (0.2-1.3) mg/dL AST (14-36) U/L ALT (4-34) U/L Alkaline Phosphatase (38-126) U/L LD 1 4 L (19-38) % LD 2 5 L (30-43) % LD 3 6 L (16-26) % LD 4 17 H (3-12) % LD 5 68 H (3-14) % Total Protein (6.3-8.2) g/dL Albumin (3.5-5.0) g/dL 01/03/21 01/03/21 01/03/21 Range/Units 02:00 04:00 04:00 WBC 15.5 H (3.8-10.6) k/uL RBC 3.25 L (3.80-5.40) m/uL Hgb 10.3 L (11.4-16.0) gm/dL Hct 29.5 L (34.0-46.0) % RDW 16.2 H (11.5-15.5) % Plt Count 84 L (150-450) k/uL Neutrophils # 12.6 H (1.3-7.7) k/uL Lymphocytes # 0.7 L (1.0-4.8) k/uL Monocytes # 1.6 H (0-1.0) k/uL PT 12.8 H (9.0-12.0) sec INR 1.2 H (<1.2) Sodium (137-145) mmol/L Chloride (98-107) mmol/L BUN (7-17) mg/dL Creatinine (0.52-1.04) mg/dL Glucose (74-99) mg/dL POC Glucose (mg/dL) 128 H (75-99) mg/dL Total Bilirubin (0.2-1.3) mg/dL AST (14-36) U/L ALT (4-34) U/L Alkaline Phosphatase (38-126) U/L LD 1 (19-38) % LD 2 (30-43) % LD 3 (16-26) % LD 4 (3-12) % LD 5 (3-14) % Total Protein (6.3-8.2) g/dL Albumin (3.5-5.0) g/dL 01/03/21 01/03/21 Range/Units 04:00 10:50 WBC (3.8-10.6) k/uL RBC (3.80-5.40) m/uL Hgb (11.4-16.0) gm/dL Hct (34.0-46.0) % RDW (11.5-15.5) % Plt Count (150-450) k/uL Neutrophils # (1.3-7.7) k/uL Lymphocytes # (1.0-4.8) k/uL Monocytes # (0-1.0) k/uL PT (9.0-12.0) sec INR (<1.2) Sodium 135 L (137-145) mmol/L Chloride 95 L (98-107) mmol/L BUN 85 H (7-17) mg/dL Creatinine 4.11 H (0.52-1.04) mg/dL Glucose 113 H (74-99) mg/dL POC Glucose (mg/dL) 113 H (75-99) mg/dL Total Bilirubin 6.6 H (0.2-1.3) mg/dL AST 568 H (14-36) U/L ALT 867 H (4-34) U/L Alkaline Phosphatase 256 H (38-126) U/L LD 1 (19-38) % LD 2 (30-43) % LD 3 (16-26) % LD 4 (3-12) % LD 5 (3-14) % Total Protein 5.5 L (6.3-8.2) g/dL Albumin 3.3 L (3.5-5.0) g/dL Microbiology - Last 24 Hours (Table) 12/28/20 15:19 Blood Culture - Preliminary Blood No Growth after 120 hours
--- NOTE | 2021-01-03 11:15 | PCN ---
PROCEDURE NOTE OPERATIVE REPORT: Left-sided thoracentesis. PREOPERATIVE DIAGNOSIS: Left pleural effusion. POSTOPERATIVE DIAGNOSIS: Left-sided hemothorax. ANESTHESIA USED: 2 mL of 1% lidocaine. PROCEDURE: The patient was placed in a sitting upright position, the area below the left scapula was prepared in a sterile fashion and drapes were applied. The area which was already marked by ultrasound was locally anesthetized, and using a 26-gauge needle, the needle was inserted into the pleural space. Fluid was localized and it was bloody. Then a small tiny incision was made, and a standard thoracentesis catheter and needle were used and advanced at the same site into the pleural space. Fluid was obtained. The needle was pulled out of the catheter, and the catheter was advanced in the pleural space, a freely flowing fluid, which was grossly bloody. Total of 1500 mL of bloody effusion removed from the left pleural space. At the end of the procedure, there was clearly evidence of some air, and it felt that the patient already had previous left- sided pneumothorax. The air was suctioned completely. Followup chest x-ray showed evidence of left apical pneumothorax, no intervention was necessary, and the left-sided pneumothorax was found to be old and it was present even before the thoracentesis. However, a followup chest x-ray will be done in the next few hours. Procedure was well tolerated and no evidence of any immediate complications. Again, the left-sided pneumothorax was present before the procedure. MMALF / MERLEN: [id number] /
--- NOTE | 2021-01-03 11:49 | P.PN ---
Subjective Progress Note Date: 01/03/21 HISTORY OF PRESENT ILLNESS This is a 65-year-old female patient of Dr. 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 Patient underwent echocardiogram that revealed an ejection fraction of 55-60% with LVH, mild to moderate MR, bicuspid severely calcified aortic valve with moderate aortic regurgitation, moderate tricuspid regurgitation. The patient underwent cardiac julián terizationTEE for further evaluation. The cath showed right coronary artery stenosis in the order of 85% without any significant coronary artery disease. The transthoracic echocardiogram showed severe aortic stenosis. Patient underwent aortic valve replacement and one-vessel CABG with reverse saphenous vein graft off the aorta to the right coronary artery. Patient was admitted into the intensive care unit and was successfully extubated. She is seen today in the intensive care unit. She is up in a recliner. [place] in place, mediastinal and right-sided chest tubes in place, Acevedo catheter in place. Patient denies having any chest pain. She states she is not feeling too bad today. She has a little nausea. No abdominal pain. She states she slept okay last night. She has been afebrile, heart rate 71, blood pressure 119/52, pulse ox 90% on 5 L nasal cannula. Blood work this morning reveals W BC 15.2, hemoglobin 8, platelet count 168. Electrolytes normal, BUN 19 and creatinine 0.78. Blood sugars running between 124 and 141. AST 167. Chest x-ray reveals small residual right apical pneumothorax may be present. Chest tubes pulled back slightly from comparison. [place] catheter is somewhat peripheral and the right main pulmonary artery region. Cardiomegaly. Small left pleural effusion. 12/28: Patient remains in the intensive care unit. Patient has become hypoten sive with low urine output, elevated lactic acid, anemia, liver enzyme elevation and generalized anasarca. Patient is been started on dopamine, Primacor and is status post albumin and is status post 1 unit packed RBCs this morning. Urine output is improving. She is on BiPAP. Patient complains of generalized not feeling well and shortness of breath. Repeat CXR reports slight increase in mild left hilar and left basilar edema and/or atelectasis. Small pleural effusion. WBC 18.7, hemoglobin initially 6.8 and repeat a 0.1. Platelet count 124. INR 2.8. Electrolytes normal. BUN 32 and creatinine 1.53. Blood sugars running in the 140-170s. Total bilirubin 1.9, AST 1140, ALT 662, alkaline phosphatase 30. Amylase and lipase normal. 12/29: She remains in the intensive care unit. She has not been intubated. Her overall condition continues to decline and she is scheduled for dialysis catheter placement to start hemodialysis. She has had virtually no urine output despite being on Lasix drip patient also went into atrial fibrillation and started on digoxin. She remains with right pleural and mediastinal chest tubes are in place. Additional new diagnoses include A. fib with RVR, ischemic bowel suspected, bicytopenia. Patient is awake. She is complaining of chest discomfort. She is not have increased edema. Her temperature has been low down to 96.5. Heart rate 114, blood pressure 122/54, pulse ox 90%. WBC 14.6, hemoglobin 6, platelet count 26. INR 3.3. Electrolytes normal. BUN 53 and creatinine 2.77. Calcium 7.8. Ionized calcium 3.8. Total bilirubin 3, AST 11,442, ALT 3572, alkaline phosphatase 41. She has been ordered for plasma, platelets and RBC transfusions. 12/30: Patient is currently on BiPAP. She had dialysis catheter placed by vascular surgeon yesterday and underwent her first hemodialysis with removal of 3 L. She has had no urine output overnight. She remains with chest tubes in place. Acevedo catheter is in place. Repeat blood work reveals W BC 13.3, hemoglobin 9, platelet count 24. She is scheduled for platelet transfusion today. INR 2.6. BUN 33 creatinine 2.18. Blood sugars are running between 110 and 138. Magnesium 2.2. Potassium 4.3. Total bilirubin 5.0, AST 8066, ALT 2707, alkaline phosphatase 74. Digoxin level II.9. Patient not currently on digoxin. 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 She has been afebrile, heart rate in the 80s, blood pressure 138/52, pulse ox 93%. Cultures no growth at 24 hours. 12/31: Patient is scheduled for repeat dialysis today. She has had 15 mL output overnight of urine. Patient complains of nausea. Reglan changed to scheduled. She states she's had some ice chips. Patient is awake and alert but thinks it's June 2021. She did have a bowel movement this morning. Patient has been afebrile, heart rate in the 80s and 90s, blood pressure 145/72, pulse ox 97% on BiPAP. Repeat blood work reveals WBC 9.7, hemoglobin 8.5, platelet count 25. No plan for platelet transfusion today. INR is 2.3. Sodium 136 otherwise electrolytes are normal. BUN 41 and creatinine 2.58. Ionized calcium 4.1, total bilirubin 7.6, AST 4112, ALT 2017, alkaline phosphatase 94. Blood sugars are running between 96 and 136. PICC line is ordered for tomorrow. 01/01: Patient remains in the intensive care unit. She is now off BiPAP. Patient is starting to make urine at 15-20 mL per hour. Liver function tests are improving. She states that she is feeling a little nausea that comes and goes. She does have Zofran available and Reglan has been changed to when necess patrice. Pulse ox 93% on 3 L nasal cannula, blood pressure 163/75, heart rate 80s, afebrile. WBC 13.7, hemoglobin 9.1, platelet count 33. INR 1.8. Electrolytes normal. BUN 52 and creatinine 3.31. Blood sugars are running between 123 and 143. Ionized calcium 4.4, total bilirubin 11.1, AST 2123, ALT 1484, alkaline phosphatase 128. Chest x-ray reveals diminished lung volumes suspect worsening pulmonary vascular congestion. Increased moderate left pleural effusion with adjacent atelectasis and/or consolidation. Fine linear density projecting across the left apex suspected artifact rather than small pneumothorax. Ultrasound of the chest revealed left pleural effusion pocket 10.4 cm. Patient is status post calcium gluconate. Metoprolol increased to 25 mg twice daily. Patient is off antibiotics. 01/02: Patient is seen today sitting in recliner and her ICU room. She remains with [address] and Acevedo catheter. She has improved urine output. She complains of nausea. Last bowel movement was on December 31. She has been afebrile, heart rate in the 60s, blood pressure 140/74, pulse ox 99% on 3 L nasal cannula. Repeat blood work reveals WBC 18.5, hemoglobin 9.9, platelet count 62. INR 1.4. Sodium 136, BUN 61 and creatinine 3.37. Blood sugars running between 115 and 155. Total bilirubin 11.1, AST 1204, ALT 1176, alkaline phosphatase 179. Repeat chest x-ray reveals continued pulmonary vascular congestion and moderate left effusion with adjacent atelectasis and/or consolidation. Right-sided chest tube. No pneumothorax. Patient underwent dialysis yesterday with removal of 2.2 L. Dialysis treatment on hold for now the patient is followed closely by nephrology. 01/03: Patient remains in intensive care unit. Patient underwent left-sided thoracentesis with removal of 1.5 L. She has increased oxygen need from 3 L to 6 L with pulse ox of94%. Heart rate has been in the 70s, blood pressure 148/78. 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 Patient has had good urine output with no plan for dialysis today. No plan for Lasix today. Repeat blood work today is showing improvement with white count down to 15.5, hemoglobin 10.3, platelet count 84. INR 1.2. Sodium 135, potassium 3.5, chloride 95, CO2 28, worsening renal function with BUN 85 and creatinine 4.11. Total bilirubin 6.6, AST 568, ALT 867, alkaline phosphatase 256. REVIEW OF SYSTEMS Constitutional: No fever, no chills, no night sweats. No weight change. Reports generalized weakness, reports fatigue reports lethargy. No daytime sleepiness. EENT: No headache. No change in vision, no loss of vision. No loss of Hearing, no dizziness. No nasal drainage or congestion. No epistaxis. No sore throat. Lungs: Reports shortness of breath, cough, no sputum production. No wheezing. Cardiovascular: Reports chest discomfort, reports lower extremity edema. Reports generalized edema. No palpitations. No paroxysmal nocturnal dyspnea. No orthopnea. No lightheadedness or dizziness. No syncopal episodes. Abdominal: No abdominal pain. Reports intermittent nausea, denies vomiting. No diarrhea. No constipation. No bloody or tarry stools. No loss of appetite. Genitourinary: No dysuria, increased frequency, urgency. No urinary retention. Musculoskeletal: No myalgias. Reports muscle weakness, no gait dysfunction, no frequent falls. No back pain. No neck pain. Integumentary: No wounds, no lesions. No rash or pruritus. Neurologic: No aphasia. No facial droop. No change in mentation. No head injury. No headache. No paralysis. No paresthesia. Psychiatric: No depression. No anxiety. Endocrine: Reports abnormal blood sugars. PHYSICAL EXAMINATION Gen: This paradise 65-year-old female. She is resting in ICU bed, she is on nasal cannula, appears to be comfortable at rest. HEENT: Head is atraumatic, normocephalic. Pupils equal, round. Sclerae is icteric. NECK: Supple. No JVD. No lymphadenopathy. No thyromegaly. LUNGS: Diminished bilaterally. No wheezes or rhonchi. No intercostal retractions. Right pleural chest tube in place. HEART: Regular rate and rhythm. No murmur. ABDOMEN: Soft. Bowel sounds are present. No masses. No tenderness. Acevedo catheter in place with remy urine. EXTREMITIES: Mild generalized pedal edema. No calf tenderness. Dorsalis pedis palpable bilaterally. NEUROLOGICAL: Patient is awake, alert and oriented x3. Cranial nerves 2 through 12 are grossly intact. ASSESSMENT AND PLAN 1. Aortic valve replacement for bicuspid valve with moderate aortic regurgitation and single-vessel CABG with CVG to RCA. Patient is postop day # 8. She has been successfully extubated and now on nasal cannula. Continue current management per cardiothoracic surgery. 2. Rule out cardiogenic shock. Currently stable. 3. Transaminitis secondary to hypoperfusion and shock liver, improving. Continue to monitor liver function tests and INR. 4. Acute blood loss anemia, expected following surgery. Repeat transfusion today. 5. Lactic acidosis secondary to hyperperfusion, improving. 6. A. fib with RVR, paroxysmal atrial fibrillation, converted to sinus rhythm. 7. Possible ischemic bowel. 8. Bicytopenia with thrombocytopenia and anemia. Status post total transfusion of 5 units of platelets, 4 units of fresh frozen plasma, 4 units of packed RBCs. 9. Acute renal failure requiring dialysis. Patient started hemodialysis on December 29. No plan for dialysis today. 10. Acute hypoxic respiratory failure requiring BiPAP. Patient is on nasal cannula. 11. SIRS with multiorgan failure. Continue current management. 12. Large left pleural effusion status post thoracentesis. 13. Hypertension. 14. Hyperlipidemia. 15. History of CVA 2. 16. Hypothyroidism. Continue levothyroxine 25 g daily. 17. Recurrent depression. Continue Zoloft 25 mg at bedtime. 18. Degenerative disc disease. 19. GI prophylaxis. Protonix 40 mg IV push twice daily. 20. DVT prophylaxis. Off heparin due to thrombocytopenia DISCHARGE PLAN TBD. Impression and plan of care have been directed as dictated by the signing physician. Donna Gutierrez nurse practitioner acting as scribe for signing physician. Objective - Vital Signs Vital signs: Vital Signs Temp 96.3 F L 01/03/21 08:00 Pulse 72 01/03/21 09:00 Resp 30 H 01/03/21 09:00 BP 161/78 01/03/21 09:00 Pulse Ox 94 L 01/03/21 09:00 Intake & Output 01/02/21 01/03/21 01/03/21 18:59 06:59 18:59 Intake Total 181 3 3 Output Total 1160 1720 585 Balance -979 -1717 -582 Weight 65.5 kg Intake: IV 56 3 3 D5.9 20 pressure bags 36 3 3 Oral 125 Output: Chest Tube Drainage 45 70 110 Right Pleural 45 70 110 Urine 1115 1650 475 Other: Voiding Method Indwelling Catheter Indwelling Catheter ABP, PAP, CO, CI - Last Documented Arterial Blood Pressure 194/64 Pulmonary Artery Pressure 12/5 Cardiac Output 4.2 Cardiac Index 2.6 - Labs CBC & Chem 7: 01/03/21 04:00 01/03/21 04:00 Labs: Abnormal Lab Results - Last 24 Hours (Table) 12/29/20 01/02/21 01/02/21 Range/Units 21:08 11:19 16:34 WBC (3.8-10.6) k/uL RBC (3.80-5.40) m/uL Hgb (11.4-16.0) gm/dL Hct (34.0-46.0) % RDW (11.5-15.5) % Plt Count (150-450) k/uL Neutrophils # (1.3-7.7) k/uL Lymphocytes # (1.0-4.8) k/uL Monocytes # (0-1.0) k/uL PT (9.0-12.0) sec INR (<1.2) Sodium (137-145) mmol/L Chloride (98-107) mmol/L BUN (7-17) mg/dL Creatinine (0.52-1.04) mg/dL Glucose (74-99) mg/dL POC Glucose (mg/dL) 151 H 116 H (75-99) mg/dL Total Bilirubin (0.2-1.3) mg/dL AST (14-36) U/L ALT (4-34) U/L Alkaline Phosphatase (38-126) U/L LD 1 4 L (19-38) % LD 2 5 L (30-43) % LD 3 6 L (16-26) % LD 4 17 H (3-12) % LD 5 68 H (3-14) % Total Protein (6.3-8.2) g/dL Albumin (3.5-5.0) g/dL 01/03/21 01/03/21 01/03/21 Range/Units 02:00 04:00 04:00 WBC 15.5 H (3.8-10.6) k/uL RBC 3.25 L (3.80-5.40) m/uL Hgb 10.3 L (11.4-16.0) gm/dL Hct 29.5 L (34.0-46.0) % RDW 16.2 H (11.5-15.5) % Plt Count 84 L (150-450) k/uL Neutrophils # 12.6 H (1.3-7.7) k/uL Lymphocytes # 0.7 L (1.0-4.8) k/uL Monocytes # 1.6 H (0-1.0) k/uL PT 12.8 H (9.0-12.0) sec INR 1.2 H (<1.2) Sodium (137-145) mmol/L Chloride (98-107) mmol/L BUN (7-17) mg/dL Creatinine (0.52-1.04) mg/dL Glucose (74-99) mg/dL POC Glucose (mg/dL) 128 H (75-99) mg/dL Total Bilirubin (0.2-1.3) mg/dL AST (14-36) U/L ALT (4-34) U/L Alkaline Phosphatase (38-126) U/L LD 1 (19-38) % LD 2 (30-43) % LD 3 (16-26) % LD 4 (3-12) % LD 5 (3-14) % Total Protein (6.3-8.2) g/dL Albumin (3.5-5.0) g/dL 01/03/21 Range/Units 04:00 WBC (3.8-10.6) k/uL RBC (3.80-5.40) m/uL Hgb (11.4-16.0) gm/dL Hct (34.0-46.0) % RDW (11.5-15.5) % Plt Count (150-450) k/uL Neutrophils # (1.3-7.7) k/uL Lymphocytes # (1.0-4.8) k/uL Monocytes # (0-1.0) k/uL PT (9.0-12.0) sec INR (<1.2) Sodium 135 L (137-145) mmol/L Chloride 95 L (98-107) mmol/L BUN 85 H (7-17) mg/dL Creatinine 4.11 H (0.52-1.04) mg/dL Glucose 113 H (74-99) mg/dL POC Glucose (mg/dL) (75-99) mg/dL Total Bilirubin 6.6 H (0.2-1.3) mg/dL AST 568 H (14-36) U/L ALT 867 H (4-34) U/L Alkaline Phosphatase 256 H (38-126) U/L LD 1 (19-38) % LD 2 (30-43) % LD 3 (16-26) % LD 4 (3-12) % LD 5 (3-14) % Total Protein 5.5 L (6.3-8.2) g/dL Albumin 3.3 L (3.5-5.0) g/dL Microbiology - Last 24 Hours (Table) 12/28/20 15:19 Blood Culture - Preliminary Blood No Growth after 120 hours
--- NOTE | 2021-01-03 12:22 | XR ---
EXAMINATION TYPE: XR chest 1V portable DATE OF EXAM: 01/03/2021 COMPARISON: 01/03/2021 INDICATION: Left apical pneumothorax TECHNIQUE: Single frontal view of the chest is obtained. FINDINGS: The heart size is upper limits of normal. The pulmonary vasculature is normal. There is increasing infiltrate at the left base. There is a left apical pneumothorax which appear sim ilar to prior study. Right side chest tube is present. IMPRESSION: 1. Stable left apical pneumothorax. 2. Increasing left lower lobe infiltrate. 3. Right-sided chest tube
[2021-01-03] MEDS: hydrALAZINE HCL 25 MG TAB PO SCH ×2 (17:34→22:10)
[2021-01-03] MEDS: SENNOSIDES-DOCUSATE SODIUM 1 EACH TAB PO SCH (22:09)
[2021-01-03] MEDS: SERTRALINE 25 MG TAB PO SCH (22:10)
[2021-01-03] MEDS: LEVOTHYROXINE 25 MCG TAB PO SCH (22:10)
[2021-01-03 23:51] LABS: Glucose,Whole Blood 119 mg/dL (75-99)
[2021-01-04 04:08] LABS: Anisocytosis Slight; HCT 31.1 % (34.0-46.0); HGB 10.8 gm/dL (11.4-16.0); MCH 31.5 pg (25.0-35.0); MCHC 34.6 g/dL (31.0-37.0); MCV 91.2 fL (80.0-100.0); Mean Platelet Volume 9.7; Platelet Count 110 k/uL (150-450); Poikilocytosis Slight; RBC 3.41 m/uL (3.80-5.40); RDW 16.7 % (11.5-15.5); WBC 17.5 k/uL (3.8-10.6)
[2021-01-04 04:18] LABS: Albumin 3.1 g/dL (3.5-5.0); Potassium 3.6 mmol/L (3.5-5.1); Total Bilirubin 4.5 mg/dL (0.2-1.3); Total Protein 5.4 g/dL (6.3-8.2)
[2021-01-04 04:24] LABS: INR 1.1 (<1.2); Prothrombin Time 11.9 sec (9.0-12.0)
[2021-01-04] MEDS ORDERED: POTASSIUM CHLORIDE ER 20 MEQ TAB.ER PO STA (06:32)
[2021-01-04 06:45] LABS: Glucose,Whole Blood 110 mg/dL (75-99)
[2021-01-04] MEDS: ONDANSETRON 4 MG/2 ML VIAL IVP PRN ×3 (07:06→17:22)
--- NOTE | 2021-01-04 07:20 | XR ---
EXAMINATION TYPE: XR chest 1V portable DATE OF EXAM: 01/04/2021 COMPARISON: 01/03/2021 INDICATION: Pneumothorax TECHNIQUE: Single frontal view of the chest is obtained. FINDINGS: The heart size is mildly prominent. The pulmonary vasculature is normal. There is an infiltrate at the left base silhouetting the diaphragm. 5 views worsened. Small left apic al pneumothorax has diminished in size from the comparison. Epicardial leads are present. Sternotomy wires from cardiac valve surgery are evident. Right-sided chest tube is been removed. IMPRESSION: 1. Diminished size of a left apical pneumothorax. 2. Worsening left lower lobe infiltrate and/or pleural effusion
[2021-01-04] MEDS: IPRATROPIUM-ALBUTEROL 3 ML NEB INHALATION SCH ×4 (07:22→19:47)
[2021-01-04] MEDS: PANTOPRAZOLE 40 MG/10 ML VIAL IVP SCH ×2 (09:13→20:36)
--- NOTE | 2021-01-04 09:13 | P.PN ---
Subjective Patient is seen in follow-up for acute kidney injury. Renal function stable. Nonoliguric. Urine output about 100 mL an hour. Last dose of Lasix was on January 02. Last hemodialysis on January 01. Currently on 4 L nasal cannula. Currently quite sleepy. No pain. Oral intake just fair per the nurse. Vital signs are stable. General: The patient appeared well nourished and normally developed. HEENT: Head exam is unremarkable. Neck is without jugular venous distension. LUNGS: Breath sounds decreased. HEART: Rate and Rhythm are regular. ABDOMEN: Soft, no distention. EXTREMITITES: No edema. Objective - Vital Signs Vital signs: Vital Signs Temp 97.4 F L 01/04/21 04:00 Pulse 75 01/04/21 07:31 Resp 19 01/04/21 07:00 BP 134/63 01/04/21 07:00 Pulse Ox 97 01/04/21 07:00 Intake & Output 01/03/21 01/04/21 01/04/21 18:59 06:59 18:59 Intake Total 483 Output Total 1380 1400 115 Balance -897 -1400 -115 Weight 61.9 kg Intake: IV 3 pressure bags 3 Oral 480 Output: Chest Tube Drainage 110 Right Pleural 110 Urine 1270 1400 115 Other: Voiding Method Indwelling Catheter Indwelling Catheter ABP, PAP, CO, CI - Last Documented Arterial Blood Pressure 194/64 Pulmonary Artery Pressure 12/5 Cardiac Output 4.2 Cardiac Index 2.6 - Labs CBC & Chem 7: 01/04/21 03:42 01/04/21 03:42 Labs: Abnormal Lab Results - Last 24 Hours (Table) 01/03/21 01/03/21 01/04/21 Range/Units 10:50 23:50 03:42 WBC 17.5 H (3.8-10.6) k/uL RBC 3.41 L (3.80-5.40) m/uL Hgb 10.8 L (11.4-16.0) gm/dL Hct 31.1 L (34.0-46.0) % RDW 16.7 H (11.5-15.5) % Plt Count 110 L (150-450) k/uL Sodium (137-145) mmol/L Chloride (98-107) mmol/L BUN (7-17) mg/dL Creatinine (0.52-1.04) mg/dL Glucose (74-99) mg/dL POC Glucose (mg/dL) 113 H 119 H (75-99) mg/dL Total Bilirubin (0.2-1.3) mg/dL AST (14-36) U/L ALT (4-34) U/L Alkaline Phosphatase (38-126) U/L Total Protein (6.3-8.2) g/dL Albumin (3.5-5.0) g/dL 01/04/21 01/04/21 Range/Units 03:42 06:43 WBC (3.8-10.6) k/uL RBC (3.80-5.40) m/uL Hgb (11.4-16.0) gm/dL Hct (34.0-46.0) % RDW (11.5-15.5) % Plt Count (150-450) k/uL Sodium 133 L (137-145) mmol/L Chloride 94 L (98-107) mmol/L BUN 103 H* (7-17) mg/dL Creatinine 4.01 H (0.52-1.04) mg/dL Glucose 113 H (74-99) mg/dL POC Glucose (mg/dL) 110 H (75-99) mg/dL Total Bilirubin 4.5 H (0.2-1.3) mg/dL AST 208 H (14-36) U/L ALT 495 H (4-34) U/L Alkaline Phosphatase 254 H (38-126) U/L Total Protein 5.4 L (6.3-8.2) g/dL Albumin 3.1 L (3.5-5.0) g/dL Microbiology - Last 24 Hours (Table) 12/28/20 15:19 Blood Culture - Final Blood No Growth after 144 hours Assessment and Plan Plan: Assessment: 1. Acute kidney injury secondary to ATN, post CABG. last hemodialysis January 01. Renal function stable. Nonoliguric. Renal function stable. Creatinine 4.01 today. Baseline creatinine near 1. 2. Status post CABG and aortic valve replacement on 12/26/2020. 3. Acute diastolic CHF and moderate tricuspid regurgitation and pulmonary hypertension. 4. Volume overload. Improved with ultrafiltration and improved urine output. Status post left-sided thoracentesis on 01/03/2021 with 1.5 L drained. 5. Acute blood loss anemia status post blood transfusion this admission. 6. Shock liver. 7. Hypokalemia from diuresis. Being replaced. 8. Benign hypertension. Stable. Plan: Continue to hold hemodialysis and diuretics. Encouraged oral intake. Continue to monitor renal function and urine output. Continue to assess for renal replacement therapy on daily basis.
[2021-01-04] MEDS: METOPROLOL TARTRATE 25 MG TAB PO SCH ×2 (09:14→20:36)
[2021-01-04] MEDS: hydrALAZINE HCL 25 MG TAB PO SCH ×4 (09:14→22:35)
[2021-01-04] MEDS: ASPIRIN 81 MG PO SCH (09:14)
--- NOTE | 2021-01-04 11:12 | P.PN ---
Subjective Progress Note Date: 01/04/21 Principal diagnosis: Aortic valve replacement and CABG 1 vessel postoperative day #9 2020 the patient is being seen for a follow-up. Awake and alert, lethargic. Response to the moving all 4 extremities without any limitation. She remains on BiPAP at a pressure of 12/5 with an FiO2 of 50%. Generating a tidal volumes between 350 and 400 with a respiratory rate in the mid 20s. Abdomen is ventilation is around 8 L per minute. The patient has the chest tube still in place both the right pleural and mediastinal chest tube. The output has been 2 40 mL overnight over the past 12 hours and output is still bloody. She made minimal amount of urine output probably in the order of 50 mL all night. Hemodynamically stable. Off Agustín-Synephrine. She converted into sinus rhythm with a first-degree AV block. Chest x-ray showing some mild four-vessel congestion and all of the chest tubes are in place. Hemoglobin is at 8.5 with a platelet count of 25 and a coagulation profile shows an INR of 2.3 with a PT of 22.3 and a PTT of 32, lactic acid level is down to 1.8, BUN is 41 with a creatinine of 2.5 and a sodium of 136 with a potassium of 3.9. Glucose is 125. Shock liver is gradually improving and the AST is down to 4112 and ALT is down to 2017. She underwent hemodialysis yesterday without any major complications. He dialyzes catheter is still present in her right groin. No signs of any bleeding. No other issues for now. She is arousable. She follows commands and answers questions appropriately. No other significant events overnight. Note that her follow-up digoxin level was down to 2.1. She got transfused with platelets yesterday. Patient was reevaluated today on 01/01/2021, patient remains in the ICU, fully awake, alert, in no distress. Patient is on 3 L nasal cannula. She denies any shortness of breath, continues to have a right sided chest tube in place, she has mostly symptoms of surgical pain, and intermittent episodes of nausea. P atient is off pressors, she is in sinus rhythm with first-degree AV block, remains on IV Zosyn. Her labs were reviewed, platelets remained low at 63,000 BUN is 52 creatinine 3.31, INR is 1.8. Liver enzymes remain elevated. Urine output about 20 mL per hour overnight. She received dialysis yesterday for the third time. Chest x-ray today showed a left-sided pneumothorax and good sized left-sided pleural effusion, discussed this issue with thoracic surgery planned to observe for now, no plans for thoracentesis or chest tube placement. I prefer. Chest tube placement specially with her platelets being as low. Patient was reevaluated today on 01/02/2021, remains in the ICU, she is on 3 L na debbie cannula, patient received hemodialysis yesterday, and 2.2 L were removed. Today her chest x-ray continues to show left lower lobe atelectasis and pleural effusion, she continues to have a small left-sided apical pneumothorax, her platelets are down to 62,000. Liver function is at this remain elevated. But seems to be trending down. Her IV fluids at KVO. Patient is in atrial fibrillation with controlled rate. Right-sided chest tube remains in place. Patient is not in any distress, again she is on 3 L nasal cannula. WBC count today is 18.5 hemoglobin is 9.9 her electrolytes are normal renal profile showed a BUN of 61 creatinine of 3.37. Patient was reevaluated today on 01/03/2021, remains in the ICU, on few liters nasal cannula, patient is feeling better, breathing easier, however her chest x- ray clearly showed a good sized left-sided pleural effusion worsening compared to previous x-rays. Patient also had a left-sided apical pneumothorax which is not clearly seen mostly because of the worsening pleural effusion noted on the left side. Her WBC count today is 15.5 hemoglobin is 10.3 platelets are up to 84,000. PT and PTT are normal. Lites are normal. Renal profile is worse with 85 BUN and creatinine 4.11. Patient is on hemodialysis. After reviewing the chest x-ray, discussed the patient's condition with the thoracic surgery/Dr. Gaffney, and recommended left-sided thoracentesis which was done, and I was able to drain 1.5 L of gross blood from the left pleural space. After the procedure he can clearly see the left apical pneumothorax which was present all along. And it is not a complication related to the thoracentesis. Reevaluated today on 01/04/2021, patient remains in the ICU, resting, she is extremely tired and exhausted, weak, she is on 4 L nasal cannula, and her O2 saturation is in the mid 90s. Chest x-ray is basically about the same, she seems to be having a stable left apical pneumothorax, and small amount of left pleural effusion seems to be rebuilding again compared to the chest x-ray that was done right after thoracentesis yesterday. Clinically however the patient is about the same. WBC count today 17.5 hemoglobin is 10.8 electrodes are normal renal profile remains poor with a BUN of 103 creatinine 4.0. Liver enzymes remain elevated but they seem to be trending down, AST is 208 ALT is 495 and PHOSPHATASE IS 254 Objective - Vital Signs Vital signs: Vital Signs Temp 97.4 F L 01/04/21 04:00 Pulse 75 01/04/21 07:31 Resp 19 01/04/21 07:00 BP 134/63 01/04/21 07:00 Pulse Ox 97 01/04/21 07:00 Intake & Output 01/03/21 01/04/21 01/04/21 18:59 06:59 18:59 Intake Total 483 Output Total 1380 1400 115 Balance -897 -1400 -115 Weight 61.9 kg Intake: IV 3 pressure bags 3 Oral 480 Output: Chest Tube Drainage 110 Right Pleural 110 Urine 1270 1400 115 Other: Voiding Method Indwelling Catheter Indwelling Catheter ABP, PAP, CO, CI - Last Documented Arterial Blood Pressure 194/64 Pulmonary Artery Pressure 12/5 Cardiac Output 4.2 Cardiac Index 2.6 - Exam Physical Exam: Revealed a 65-year-old female in no distress, on 4 L nasal cannula. O2 saturation is 96%. Head: Atraumatic, normocephalic. HEENT:[Neck is supple.] [No neck masses.] [No thyromegaly.] [No JVD.] PERRLA, EOMI, nonicteric. has a right femoral dialysis catheter Chest: [Symmetrical chest expansion, diminished breath sounds at the bases bilaterally. . Cardiac Exam: [Normal S1 and S2, no S3 gallop, no murmur.] Abdomen: [Soft, nontender, no megaly, no rebound, no guarding, normal bowel sounds.] Extremities: [No clubbing, no edema, no cyanosis.] Neurological Exam: [No focal neurologic deficit.] Alert and oriented 3. Patient is noted to be generally weak. Psychiatric: Normal mood, affect and normal mental status examination. Skin: No rashes. - Labs CBC & Chem 7: 01/04/21 03:42 01/04/21 03:42 Labs: Abnormal Lab Results - Last 24 Hours (Table) 01/03/21 01/04/21 01/04/21 Range/Units 23:50 03:42 03:42 WBC 17.5 H (3.8-10.6) k/uL RBC 3.41 L (3.80-5.40) m/uL Hgb 10.8 L (11.4-16.0) gm/dL Hct 31.1 L (34.0-46.0) % RDW 16.7 H (11.5-15.5) % Plt Count 110 L (150-450) k/uL Sodium 133 L (137-145) mmol/L Chloride 94 L (98-107) mmol/L BUN 103 H* (7-17) mg/dL Creatinine 4.01 H (0.52-1.04) mg/dL Glucose 113 H (74-99) mg/dL POC Glucose (mg/dL) 119 H (75-99) mg/dL Total Bilirubin 4.5 H (0.2-1.3) mg/dL AST 208 H (14-36) U/L ALT 495 H (4-34) U/L Alkaline Phosphatase 254 H (38-126) U/L Total Protein 5.4 L (6.3-8.2) g/dL Albumin 3.1 L (3.5-5.0) g/dL 01/04/21 Range/Units 06:43 WBC (3.8-10.6) k/uL RBC (3.80-5.40) m/uL Hgb (11.4-16.0) gm/dL Hct (34.0-46.0) % RDW (11.5-15.5) % Plt Count (150-450) k/uL Sodium (137-145) mmol/L Chloride (98-107) mmol/L BUN (7-17) mg/dL Creatinine (0.52-1.04) mg/dL Glucose (74-99) mg/dL POC Glucose (mg/dL) 110 H (75-99) mg/dL Total Bilirubin (0.2-1.3) mg/dL AST (14-36) U/L ALT (4-34) U/L Alkaline Phosphatase (38-126) U/L Total Protein (6.3-8.2) g/dL Albumin (3.5-5.0) g/dL Microbiology - Last 24 Hours (Table) 12/28/20 15:19 Blood Culture - Final Blood No Growth after 144 hours Assessment and Plan Assessment: Impression: Status post aortic valve replacement and single-vessel bypass surgery postoperative day #9 Shock liver secondary to cardiogenic shock and severe metabolic acidosis secondary to cardiogenic shock, resolving. Coagulopathy secondary to shocked liver, Hyperlipidemia. Hypothyroidism. History of CVA. Episodes of atrial flutter and RVR, presently in normal sinus rhythm. Spontaneous Left-sided pneumothorax, exact etiology is not clear Acute kidney injury and renal failure secondary to cardiogenic shoc k/cardiorenal, patient has been on hemodialysis 3, being followed by nephrology. 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 Left sided hemothorax, status post left-sided thoracentesis on 01/03/2021, and 1.5 L of gross blood removed from the left pleural space. Recommendation: Continue to monitor the patient in the ICU for today. Continue present supportive care measures. Continue beta blockers. Titrate oxygen accordingly. Continue bronchodilators. Continue to monitor liver enzymes. Continue insulin Continue GI and DVT prophylaxis. We'll continue to follow. Time with Patient: Less than 30
[2021-01-04] MEDS: amLODIPine 5 MG TAB PO SCH (11:35)
--- NOTE | 2021-01-04 11:42 | PN ---
PROGRESS NOTE Monique is a 65-year-old lady who underwent aortic valve replacement with bypass surgery with venous graft to the right coronary artery that has had a fairly complex and stormy postoperative course, developed renal failure, liver failure and thrombocytopenia. She is getting progressively better, had episodes of paroxysmal atrial fibrillation, but remains in sinus rhythm now. Her platelet count has improved to 110. BUN and creatinine are still elevated, but she is making urine and did not have to be dialyzed. AST and ALT are coming down from a peak of 11,000 AST is down to 203. PHYSICAL EXAMINATION: Afebrile. Vital signs are stable. Chest exam reveals diminished air entry at the bases. Heart exam reveals first and second heart sounds. No gallop. Abdomen is soft. Examination of extremities did not reveal any edema. Peripheral pulses are felt. LABS: Labs show a hemoglobin of 10.8, platelet count is 110. Potassium is 3.6, BUN is 103. Creatinine is 4. ASSESSMENT: 1. Aortic stenosis, status post aortic valve replacement. 2. Coronary artery disease, status post coronary artery bypass grafting. 3. Acute liver and renal injury probably secondary to hypotension and hypovolemia making slow but steady improvement. 4. Paroxysmal atrial fibrillation. Remains in sinus rhythm. Not a candidate for anticoagulation secondary to thrombocytopenia. MMODL / IJN: [id number] /
[2021-01-04 11:55] LABS: Glucose,Whole Blood 114 mg/dL (75-99)
[2021-01-04] MEDS: METOCLOPRAMIDE 5 MG/ML 2 ML VIAL IVP PRN ×2 (13:10→20:36)
--- NOTE | 2021-01-04 13:28 | P.PN ---
Subjective Progress Note Date: 01/04/21 Principal diagnosis: Severe bicuspid aortic valve stenosis, single-vessel coronary artery disease. 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 POD #9 aortic valve replacement with a #21 mm Jackson Inspiris bioprosthetic aortic valve. Coronary artery bypass grafting 1 with a reverse saphenous vein graft off the aorta to the right coronary artery. Clip ligation of left atrial appendage with a 35 mm Atriclip. Intraoperative transesophageal echocardiogram. Postoperative acute blood loss anemia, expected due to hemodilution and cardiopu lmonary bypass. Hypotension requiring pressor use, resolved. Acute kidney injury secondary to hypoperfusion requiring initiation of dialysis. Shock liver secondary to hypoperfusion, improving. Lactic acidosis secondary to hypoperfusion, resolved. Hypoxic respiratory failure requiring BiPAP, currently on 4 L oxygen nasal cannula. Thrombocytopenia, improving. A. fib with RVR, known common occurrence after open heart surgery, currently sinus rhythm. Coagulopathy with DIC, improving. Left pleural effusion, requiring left thoracentesis. The patient was seen in follow-up today 01/04/2021 at her bedside in the intensive care unit. Currently she is laying in bed, opens her eyes easily with verbal stimuli, and is oriented 3. Denies any nausea this morning, shortness of breath, although is complaining of some pain to her back which she reports is chronic. Oxygen saturations are 96% on 4 L nasal cannula and she is achieving 500 mL on her incentive spirometry with much encouragement. Yesterday she underwent a left thoracentesis with 1.5 L of serosanguineous fluid drained. Bedside telemetry showing normal sinus rhythm with first-degree block heart rate 76 bpm. She remains hemodynamically stable and is currently on no inotropic or pressor support. Patient is complaining of generalized weakness and feeling tired all the time. Laboratory results this morning show a WBC count 17.5, hemoglobin 10.8, platelets 110, BUN 103, creatinine 4.01, AST and ALT which are trending down 208/495. Patient did not have any hemodialysis yesterday or Lasix. Urine output 715 mL in the last 8 hours. She remains afebrile. Atrial and ventricular epicardial pacemaker wires are intact and grounded. Right femoral dialysis catheter remains intact, dressing clean and dry. Objective - Vital Signs Vital signs: Vital Signs Temp 97.4 F L 01/04/21 04:00 Pulse 75 01/04/21 07:31 Resp 19 01/04/21 07:00 BP 134/63 01/04/21 07:00 Pulse Ox 97 01/04/21 07:00 Intake & Output 01/03/21 01/04/21 01/04/21 18:59 06:59 18:59 Intake Total 483 Output Total 1380 1400 115 Balance -897 -1400 -115 Weight 61.9 kg Intake: IV 3 pressure bags 3 Oral 480 Output: Chest Tube Drainage 110 Right Pleural 110 Urine 1270 1400 115 Other: Voiding Method Indwelling Catheter Indwelling Catheter ABP, PAP, CO, CI - Last Documented Arterial Blood Pressure 194/64 Pulmonary Artery Pressure 12/5 Cardiac Output 4.2 Cardiac Index 2.6 - Constitutional General appearance: Present: average body habitus, cooperative, no acute distress - EENT Eyes: Present: normal appearance. Absent: scleral icterus ENT: Present: hearing grossly normal - Neck Details: Neck is supple, no JVD. - Respiratory Details: Lungs sounds essentially clear throughout, diminished bilateral bases left greater than right. Respirations are symmetrical and nonlabored. Oxygen saturation 96% on 4 L nasal cannula. Achieving 500 mL on her incentive spirometry with encouragement. - Cardiovascular Details: Regular rhythm and rate. S1 and S2 present, negative for S3, gallop or murmur. Bedside telemetry showing normal sinus rhythm with first-degree heart block heart rate 76 BPM. Sternum is stable. Heart hugger is in place and she is demonstrating appropriate use. No edema present. Knee-high DARBY hose and sequential compression devices in place to her bilateral lower extremities. Atrial and ventricular epicardial pacemaker wires in place and grounded. - Gastrointestinal Gastrointestinal Comment(s): Abdomen is soft, nontender and nondistended. Active bowel sounds present all 4 abdominal quadrants. No guarding or rigidity. No organomegaly appreciated. - Genitourinary Genitourinary Comment(s): Acevedo catheter for accurate I&O. Draining clear yellow urine with 750 mL output in the last 8 hours. Right femoral dialysis catheter in place. - Integumentary Integumentary Comment(s): Skin is warm and dry. No clubbing or cyanosis is present. Midline sternal incision is clean, dry and approximated. No drainage or redness is present. Right lower extremity EVH site is clean, dry and approximated. No drainage or redness is present. - Neurologic Neurologic: Present: CNII-XII intact. Absent: focal deficits - Musculoskeletal Musculoskeletal: Present: generalized weakness, strength equal bilaterally - Psychiatric Psychiatric: Present: A&O x's 3, appropriate affect, intact judgment & insight - Allied health notes Allied health notes reviewed: nursing - Labs CBC & Chem 7: 01/04/21 03:42 01/04/21 03:42 Labs: Abnormal Lab Results - Last 24 Hours (Table) 01/03/21 01/03/21 01/04/21 Range/Units 10:50 23:50 03:42 WBC 17.5 H (3.8-10.6) k/uL RBC 3.41 L (3.80-5.40) m/uL Hgb 10.8 L (11.4-16.0) gm/dL Hct 31.1 L (34.0-46.0) % RDW 16.7 H (11.5-15.5) % Plt Count 110 L (150-450) k/uL Sodium (137-145) mmol/L Chloride (98-107) mmol/L BUN (7-17) mg/dL Creatinine (0.52-1.04) mg/dL Glucose (74-99) mg/dL POC Glucose (mg/dL) 113 H 119 H (75-99) mg/dL Total Bilirubin (0.2-1.3) mg/dL AST (14-36) U/L ALT (4-34) U/L Alkaline Phosphatase (38-126) U/L Total Protein (6.3-8.2) g/dL Albumin (3.5-5.0) g/dL 01/04/21 01/04/21 Range/Units 03:42 06:43 WBC (3.8-10.6) k/uL RBC (3.80-5.40) m/uL Hgb (11.4-16.0) gm/dL Hct (34.0-46.0) % RDW (11.5-15.5) % Plt Count (150-450) k/uL Sodium 133 L (137-145) mmol/L Chloride 94 L (98-107) mmol/L BUN 103 H* (7-17) mg/dL Creatinine 4.01 H (0.52-1.04) mg/dL Glucose 113 H (74-99) mg/dL POC Glucose (mg/dL) 110 H (75-99) mg/dL Total Bilirubin 4.5 H (0.2-1.3) mg/dL AST 208 H (14-36) U/L ALT 495 H (4-34) U/L Alkaline Phosphatase 254 H (38-126) U/L Total Protein 5.4 L (6.3-8.2) g/dL Albumin 3.1 L (3.5-5.0) g/dL Microbiology - Last 24 Hours (Table) 12/28/20 15:19 Blood Culture - Final Blood No Growth after 144 hours - Imaging and Cardiology Chest x-ray: report reviewed, image reviewed Assessment and Plan Assessment: 1. Severe bicuspid aortic valve stenosis, status post aortic valve replacement with a #21 mm Jackson Inspiris bioprosthetic aortic valve 2. Single-vessel coronary artery disease, status post coronary artery bypass grafting 1 with a reverse saphenous vein graft aorta to the right coronary artery 3. History of hypertension 4. History of hyperlipidemia 5. History of hypothyroid 6. 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 Right internal carotid artery stenosis 50-79% per carotid duplex 8. Remote history of tobacco abuse 9. Preoperative elevation of her AST and ALT 10. Degenerative arthritis with chronic back pain 11. Family history of colon cancer 12. Postoperative acute blood loss anemia, expected secondary to hemodilution and cardiopulmonary bypass 13. Hypotension requiring pressor use 14. Acute kidney injury secondary to hypoperfusion requiring initiation of dialysis 15. Shock liver secondary to hypoperfusion 16. Lactic acidosis secondary to hypoperfusion 17. Hypoxic respiratory failure requiring BiPAP 18. Thrombocytopenia 19. A. fib with RVR, known common occurrence after open heart surgery, status post exclusion of the left atrial appendage 20. Coagulopathy with DIC 21. Left pleural effusion, status post thoracentesis with 1.5 L of thin serosanguineous drainage drained Plan: 1. Continue low-dose aspirin, and beta kiki. Will increase beta kiki as tolerated, currently on metoprolol tartrate 25 mg by mouth twice a day. 2. Continue to hold Plavix. Platelets continue to trend up currently 110 today. 3. Wean O2 as tolerated. Encourage incentive spirometry use 10 times every hour while awake. Bronchodilators per pulmonary/critical care medicine. 4. Increase activity as tolerated, up to chair for meals, ambulate as tolerated. PT/OT/cardiac rehab following. 5. Hematology continues to follow for thrombocytopenia, elevated liver function. HIT panel was negative. 6. Will monitor daily labs and chest x-rays. Electrolyte replacement per protocol. 7. GI/DVT prophylaxis 8. Pain control current when necessary orders. 9. Insulin management per primary care service. Patient is not diabetic, hemoglobin A1c 5.7% 10. Nephrology continues to follow, hemodialysis recommendations and Lasix per nephrology management. 11. Continue Acevedo for accurate I's and O's. Continue to record strict accurate intake and output. Daily weights 12. Keep epicardial pacemaker wires in place and grounded. 13. Continue to encourage nutrition, continue ensure supplements. 14. More recommendations to follow based on patient's progress Time with Patient: Greater than 30
--- NOTE | 2021-01-04 16:48 | P.PN ---
Subjective Progress Note Date: 01/04/21 HISTORY OF PRESENT ILLNESS This is a 65-year-old female patient of Dr. 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 Patient underwent echocardiogram that revealed an ejection fraction of 55-60% with LVH, mild to moderate MR, bicuspid severely calcified aortic valve with moderate aortic regurgitation, moderate tricuspid regurgitation. The patient underwent cardiac julián terizationTEE for further evaluation. The cath showed right coronary artery stenosis in the order of 85% without any significant coronary artery disease. The transthoracic echocardiogram showed severe aortic stenosis. Patient underwent aortic valve replacement and one-vessel CABG with reverse saphenous vein graft off the aorta to the right coronary artery. Patient was admitted into the intensive care unit and was successfully extubated. She is seen today in the intensive care unit. She is up in a recliner. [place] in place, mediastinal and right-sided chest tubes in place, Acevedo catheter in place. Patient denies having any chest pain. She states she is not feeling too bad today. She has a little nausea. No abdominal pain. She states she slept okay last night. She has been afebrile, heart rate 71, blood pressure 119/52, pulse ox 90% on 5 L nasal cannula. Blood work this morning reveals W BC 15.2, hemoglobin 8, platelet count 168. Electrolytes normal, BUN 19 and creatinine 0.78. Blood sugars running between 124 and 141. AST 167. Chest x-ray reveals small residual right apical pneumothorax may be present. Chest tubes pulled back slightly from comparison. [place] catheter is somewhat peripheral and the right main pulmonary artery region. Cardiomegaly. Small left pleural effusion. 12/28: Patient remains in the intensive care unit. Patient has become hypoten sive with low urine output, elevated lactic acid, anemia, liver enzyme elevation and generalized anasarca. Patient is been started on dopamine, Primacor and is status post albumin and is status post 1 unit packed RBCs this morning. Urine output is improving. She is on BiPAP. Patient complains of generalized not feeling well and shortness of breath. Repeat CXR reports slight increase in mild left hilar and left basilar edema and/or atelectasis. Small pleural effusion. WBC 18.7, hemoglobin initially 6.8 and repeat a 0.1. Platelet count 124. INR 2.8. Electrolytes normal. BUN 32 and creatinine 1.53. Blood sugars running in the 140-170s. Total bilirubin 1.9, AST 1140, ALT 662, alkaline phosphatase 30. Amylase and lipase normal. 12/29: She remains in the intensive care unit. She has not been intubated. Her overall condition continues to decline and she is scheduled for dialysis catheter placement to start hemodialysis. She has had virtually no urine output despite being on Lasix drip patient also went into atrial fibrillation and started on digoxin. She remains with right pleural and mediastinal chest tubes are in place. Additional new diagnoses include A. fib with RVR, ischemic bowel suspected, bicytopenia. Patient is awake. She is complaining of chest discomfort. She is not have increased edema. Her temperature has been low down to 96.5. Heart rate 114, blood pressure 122/54, pulse ox 90%. WBC 14.6, hemoglobin 6, platelet count 26. INR 3.3. Electrolytes normal. BUN 53 and creatinine 2.77. Calcium 7.8. Ionized calcium 3.8. Total bilirubin 3, AST 11,442, ALT 3572, alkaline phosphatase 41. She has been ordered for plasma, platelets and RBC transfusions. 12/30: Patient is currently on BiPAP. She had dialysis catheter placed by vascular surgeon yesterday and underwent her first hemodialysis with removal of 3 L. She has had no urine output overnight. She remains with chest tubes in place. Acevedo catheter is in place. Repeat blood work reveals W BC 13.3, hemoglobin 9, platelet count 24. She is scheduled for platelet transfusion today. INR 2.6. BUN 33 creatinine 2.18. Blood sugars are running between 110 and 138. Magnesium 2.2. Potassium 4.3. Total bilirubin 5.0, AST 8066, ALT 2707, alkaline phosphatase 74. Digoxin level II.9. Patient not currently on digoxin. fire official sinus rhythm with a bundle branch block. She has been afebrile, heart rate in the 80s, blood pressure 138/52, pulse ox 93%. Cultures no growth at 24 hours. 12/31: Patient is scheduled for repeat dialysis today. She has had 15 mL output overnight of urine. Patient complains of nausea. Reglan changed to scheduled. She states she's had some ice chips. Patient is awake and alert but thinks it's June 2021. She did have a bowel movement this morning. Patient has been afebrile, heart rate in the 80s and 90s, blood pressure 145/72, pulse ox 97% on BiPAP. Repeat blood work reveals WBC 9.7, hemoglobin 8.5, platelet count 25. No plan for platelet transfusion today. INR is 2.3. Sodium 136 otherwise electrolytes are normal. BUN 41 and creatinine 2.58. Ionized calcium 4.1, total bilirubin 7.6, AST 4112, ALT 2017, alkaline phosphatase 94. Blood sugars are running between 96 and 136. PICC line is ordered for tomorrow. 01/01: Patient remains in the intensive care unit. She is now off BiPAP. Patient is starting to make urine at 15-20 mL per hour. Liver function tests are improving. She states that she is feeling a little nausea that comes and goes. She does have Zofran available and Reglan has been changed to when necess patrice. Pulse ox 93% on 3 L nasal cannula, blood pressure 163/75, heart rate 80s, afebrile. WBC 13.7, hemoglobin 9.1, platelet count 33. INR 1.8. Electrolytes normal. BUN 52 and creatinine 3.31. Blood sugars are running between 123 and 143. Ionized calcium 4.4, total bilirubin 11.1, AST 2123, ALT 1484, alkaline phosphatase 128. Chest x-ray reveals diminished lung volumes suspect worsening pulmonary vascular congestion. Increased moderate left pleural effusion with adjacent atelectasis and/or consolidation. Fine linear density projecting across the left apex suspected artifact rather than small pneumothorax. Ultrasound of the chest revealed left pleural effusion pocket 10.4 cm. Patient is status post calcium gluconate. Metoprolol increased to 25 mg twice daily. Patient is off antibiotics. 01/02: Patient is seen today sitting in recliner and her ICU room. She remains with [address] and Acevedo catheter. She has improved urine output. She complains of nausea. Last bowel movement was on December 31. She has been afebrile, heart rate in the 60s, blood pressure 140/74, pulse ox 99% on 3 L nasal cannula. Repeat blood work reveals WBC 18.5, hemoglobin 9.9, platelet count 62. INR 1.4. Sodium 136, BUN 61 and creatinine 3.37. Blood sugars running between 115 and 155. Total bilirubin 11.1, AST 1204, ALT 1176, alkaline phosphatase 179. Repeat chest x-ray reveals continued pulmonary vascular congestion and moderate left effusion with adjacent atelectasis and/or consolidation. Right-sided chest tube. No pneumothorax. Patient underwent dialysis yesterday with removal of 2.2 L. Dialysis treatment on hold for now the patient is followed closely by nephrology. 01/03: Patient remains in intensive care unit. Patient underwent left-sided thoracentesis with removal of 1.5 L. She has increased oxygen need from 3 L to 6 L with pulse ox of94%. Heart rate has been in the 70s, blood pressure 148/78. fire official sinus rhythm. 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 Patient has had good urine output with no plan for dialysis today. No plan for Lasix today. Repeat blood work today is showing improvement with white count down to 15.5, hemoglobin 10.3, platelet count 84. INR 1.2. Sodium 135, potassium 3.5, chloride 95, CO2 28, worsening renal function with BUN 85 and creatinine 4.11. Total bilirubin 6.6, AST 568, ALT 867, alkaline phosphatase 256. 01/04: Patient is seen today sitting in recliner. Nephrology is planning to hold dialysis and diuretics today. Patient states that she does not feel bad today. She continues to have nausea off and on. She has her first meal but she is lactose intolerance and this will be addressed in her orders. Repeat chest x- ray reveals diminished size of left apical pneumothorax. Worsening left lower lobe infiltrate and/or pleural effusion. She has had chest tube removed. Acevedo catheter remains in place. WBC 17.5, hemoglobin 10.8. Electrolytes normal. BUN 103 and creatinine 4. AST 208, ALT 495 and alkaline phosphatase 254. All liver function tests are improving. REVIEW OF SYSTEMS Constitutional: No fever, no chills, no night sweats. No weight change. Reports generalized weakness, reports fatigue reports lethargy. No daytime sleepiness. EENT: No headache. No change in vision, no loss of vision. No loss of Hearing, no dizziness. No nasal drainage or congestion. No epistaxis. No sore throat. Lungs: Reports shortness of breath, cough, no sputum production. No wheezing. Cardiovascular: Reports chest discomfort, reports lower extremity edema. Reports generalized edema. No palpitations. No paroxysmal nocturnal dyspnea. No orthopnea. No lightheadedness or dizziness. No syncopal episodes. Abdominal: No abdominal pain. Reports intermittent nausea, denies vomiting. No diarrhea. No constipation. No bloody or tarry stools. No loss of appetite. Genitourinary: No dysuria, increased frequency, urgency. No urinary retention. Musculoskeletal: No myalgias. Reports muscle weakness, no gait dysfunction, no frequent falls. No back pain. No neck pain. Integumentary: No wounds, no lesions. No rash or pruritus. Neurologic: No aphasia. No facial droop. No change in mentation. No head injury. No headache. No paralysis. No paresthesia. Psychiatric: No depression. No anxiety. Endocrine: Reports abnormal blood sugars. PHYSICAL EXAMINATION Gen: This [place] 65-year-old female. She is resting in ICU bed, she is on nasal cannula, appears to be comfortable at rest. HEENT: Head is atraumatic, normocephalic. Pupils equal, round. Sclerae is icteric. NECK: Supple. No JVD. No lymphadenopathy. No thyromegaly. LUNGS: Diminished bilaterally. No wheezes or rhonchi. No intercostal retractions. Right pleural chest tube in place. HEART: Regular rate and rhythm. No murmur. ABDOMEN: Soft. Bowel sounds are present. No masses. No tenderness. Acevedo catheter in place with remy urine. EXTREMITIES: Mild generalized pedal edema. No calf tenderness. Dorsalis pedis palpable bilaterally. NEUROLOGICAL: Patient is awake, alert and oriented x3. Cranial nerves 2 through 12 are grossly intact. ASSESSMENT AND PLAN 1. Aortic valve replacement for bicuspid valve with moderate aortic regurgitation and single-vessel CABG with CVG to RCA. Patient is postop day # 8. She has been successfully extubated and now on nasal cannula. Continue current management per cardiothoracic surgery. 2. Rule out cardiogenic shock. Currently stable. 3. Transaminitis secondary to hypoperfusion and shock liver, improving. Continue to monitor liver function tests and INR. 4. Acute blood loss anemia, expected following surgery. Repeat transfusion today. 5. Lactic acidosis secondary to hyperperfusion, improving. 6. A. fib with RVR, paroxysmal atrial fibrillation, converted to sinus rhythm. 7. Possible ischemic bowel. 8. Bicytopenia with thrombocytopenia and anemia. Status post total transfusion of 5 units of platelets, 4 units of fresh frozen plasma, 4 units of packed RBCs. 9. Acute renal failure requiring dialysis. Patient started hemodialysis on December 29. No plan for dialysis today. 10. Acute hypoxic respiratory failure requiring BiPAP. Patient is on nasal cannula. 11. SIRS with multiorgan failure. Continue current management. 12. Large left pleural effusion status post thoracentesis. 13. Hypertension. 14. Hyperlipidemia. 15. History of CVA 2. 16. Hypothyroidism. Continue levothyroxine 25 g daily. 17. Recurrent depression. Continue Zoloft 25 mg at bedtime. 18. Degenerative disc disease. 19. Moderate protein calorie malnutrition due to lack of oral intake. Diet changed to lactose intolerant. 20. GI prophylaxis. Protonix 40 mg IV push twice daily. 21. DVT prophylaxis. Off heparin due to thrombocytopenia DISCHARGE PLAN TBD. Impression and plan of care have been directed as dictated by the signing physic ian. Donna Gutierrez nurse practitioner acting as scribe for signing physician. Objective - Vital Signs Vital signs: Vital Signs Temp 97.4 F L 01/04/21 04:00 Pulse 75 01/04/21 07:31 Resp 19 01/04/21 07:00 BP 134/63 01/04/21 07:00 Pulse Ox 97 01/04/21 07:00 Intake & Output 01/03/21 01/04/21 01/04/21 18:59 06:59 18:59 Intake Total 483 Output Total 1380 1400 115 Balance -897 -1400 -115 Weight 61.9 kg Intake: IV 3 pressure bags 3 Oral 480 Output: Chest Tube Drainage 110 Right Pleural 110 Urine 1270 1400 115 Other: Voiding Method Indwelling Catheter Indwelling Catheter ABP, PAP, CO, CI - Last Documented Arterial Blood Pressure 194/64 Pulmonary Artery Pressure 12/5 Cardiac Output 4.2 Cardiac Index 2.6 - Labs CBC & Chem 7: 01/04/21 03:42 01/04/21 03:42 Labs: Abnormal Lab Results - Last 24 Hours (Table) 01/03/21 01/03/21 01/04/21 Range/Units 10:50 23:50 03:42 WBC 17.5 H (3.8-10.6) k/uL RBC 3.41 L (3.80-5.40) m/uL Hgb 10.8 L (11.4-16.0) gm/dL Hct 31.1 L (34.0-46.0) % RDW 16.7 H (11.5-15.5) % Plt Count 110 L (150-450) k/uL Sodium (137-145) mmol/L Chloride (98-107) mmol/L BUN (7-17) mg/dL Creatinine (0.52-1.04) mg/dL Glucose (74-99) mg/dL POC Glucose (mg/dL) 113 H 119 H (75-99) mg/dL Total Bilirubin (0.2-1.3) mg/dL AST (14-36) U/L ALT (4-34) U/L Alkaline Phosphatase (38-126) U/L Total Protein (6.3-8.2) g/dL Albumin (3.5-5.0) g/dL 01/04/21 01/04/21 Range/Units 03:42 06:43 WBC (3.8-10.6) k/uL RBC (3.80-5.40) m/uL Hgb (11.4-16.0) gm/dL Hct (34.0-46.0) % RDW (11.5-15.5) % Plt Count (150-450) k/uL Sodium 133 L (137-145) mmol/L Chloride 94 L (98-107) mmol/L BUN 103 H* (7-17) mg/dL Creatinine 4.01 H (0.52-1.04) mg/dL Glucose 113 H (74-99) mg/dL POC Glucose (mg/dL) 110 H (75-99) mg/dL Total Bilirubin 4.5 H (0.2-1.3) mg/dL AST 208 H (14-36) U/L ALT 495 H (4-34) U/L Alkaline Phosphatase 254 H (38-126) U/L Total Protein 5.4 L (6.3-8.2) g/dL Albumin 3.1 L (3.5-5.0) g/dL Microbiology - Last 24 Hours (Table) 12/28/20 15:19 Blood Culture - Final Blood No Growth after 144 hours
[2021-01-04 17:12] LABS: Glucose,Whole Blood 120 mg/dL (75-99)
[2021-01-04] MEDS: ACETAMINOPHEN TAB 325 MG TAB PO PRN ×2 (17:27→20:36)
[2021-01-04] MEDS: MAGNESIUM HYDROXIDE 2,400 MG/10 ML CUP PO PRN (17:27)
[2021-01-04] MEDS: LEVOTHYROXINE 25 MCG TAB PO SCH (20:36)
[2021-01-04] MEDS: SERTRALINE 25 MG TAB PO SCH (20:36)
[2021-01-04] MEDS: SENNOSIDES-DOCUSATE SODIUM 1 EACH TAB PO SCH (20:36)
[2021-01-05] MEDS: ONDANSETRON 4 MG/2 ML VIAL IVP PRN ×4 (00:21→19:51)
[2021-01-05 03:52] LABS: Anisocytosis Slight; HGB 10.4 gm/dL (11.4-16.0); MCHC 34.7 g/dL (31.0-37.0); MCV 92.1 fL (80.0-100.0); Mean Platelet Volume 9.2; Platelet Count 114 k/uL (150-450); Poikilocytosis Slight; RBC 3.26 m/uL (3.80-5.40); RDW 17.2 % (11.5-15.5)
[2021-01-05 04:07] LABS: Calcium 8.9 mg/dL (8.4-10.2); Potassium 3.4 mmol/L (3.5-5.1); Total Bilirubin 3.4 mg/dL (0.2-1.3); Total Protein 5.4 g/dL (6.3-8.2)
[2021-01-05] MEDS: ACETAMINOPHEN TAB 325 MG TAB PO PRN ×3 (06:19→20:51)
[2021-01-05] MEDS: IPRATROPIUM-ALBUTEROL 3 ML NEB INHALATION SCH ×4 (08:22→19:57)
[2021-01-05] MEDS ORDERED: POTASSIUM CHLORIDE ER 20 MEQ TAB.ER PO STA (09:19)
[2021-01-05] MEDS: hydrALAZINE HCL 25 MG TAB PO SCH ×3 (09:25→22:33)
[2021-01-05] MEDS: amLODIPine 5 MG TAB PO SCH (09:31)
[2021-01-05] MEDS: PANTOPRAZOLE 40 MG/10 ML VIAL IVP SCH ×2 (09:31→20:46)
[2021-01-05] MEDS: METOPROLOL TARTRATE 25 MG TAB PO SCH ×2 (09:31→20:45)
[2021-01-05] MEDS: ASPIRIN 81 MG PO SCH (09:31)
--- NOTE | 2021-01-05 09:33 | P.PN ---
Subjective Patient is seen in follow-up for acute kidney injury. Tetanus trending down but BUN remains elevated. Patient is quite lethargic. Nonoliguric. Urine output about 100 mL an hour. Last dose of Lasix was on January 02. Last hemodialysis on January 01. Currently on 2 L nasal cannula. Oral intake poor. Vital signs are stable. General: The patient appeared well nourished and normally developed. HEENT: Head exam is unremarkable. Neck is without jugular venous distension. LUNGS: Breath sounds decreased. HEART: Rate and Rhythm are regular. ABDOMEN: Soft, no distention. EXTREMITITES: No edema. Objective - Vital Signs Vital signs: Vital Signs Temp 96.4 F L 01/05/21 09:00 Pulse 81 01/05/21 09:00 Resp 20 01/05/21 09:00 BP 104/70 01/05/21 09:00 Pulse Ox 92 L 01/05/21 09:00 Intake & Output 01/04/21 01/05/21 01/05/21 18:59 06:59 18:59 Intake Total 490 100 Output Total 905 825 270 Balance -415 -725 -270 Weight 61.9 kg Intake: Oral 490 100 Output: Urine 905 825 270 Other: Voiding Method Indwelling Catheter Indwelling Catheter # Bowel Movements 1 ABP, PAP, CO, CI - Last Documented Arterial Blood Pressure 194/64 Pulmonary Artery Pressure 12/5 Cardiac Output 4.2 Cardiac Index 2.6 - Labs CBC & Chem 7: 01/05/21 03:09 01/05/21 03:09 Labs: Abnormal Lab Results - Last 24 Hours (Table) 12/29/20 01/04/21 01/04/21 Range/Units 15:15 11:54 17:10 WBC (3.8-10.6) k/uL RBC (3.80-5.40) m/uL Hgb (11.4-16.0) gm/dL Hct (34.0-46.0) % RDW (11.5-15.5) % Plt Count (150-450) k/uL Haptoglobin 18.1 L (31.2-198.0) mg/dL Sodium (137-145) mmol/L Potassium (3.5-5.1) mmol/L Chloride (98-107) mmol/L BUN (7-17) mg/dL Creatinine (0.52-1.04) mg/dL Glucose (74-99) mg/dL POC Glucose (mg/dL) 114 H 120 H (75-99) mg/dL Total Bilirubin (0.2-1.3) mg/dL AST (14-36) U/L ALT (4-34) U/L Alkaline Phosphatase (38-126) U/L Total Protein (6.3-8.2) g/dL Albumin (3.5-5.0) g/dL 01/05/21 01/05/21 Range/Units 03:09 03:09 WBC 15.0 H (3.8-10.6) k/uL RBC 3.26 L (3.80-5.40) m/uL Hgb 10.4 L (11.4-16.0) gm/dL Hct 30.0 L (34.0-46.0) % RDW 17.2 H (11.5-15.5) % Plt Count 114 L (150-450) k/uL Haptoglobin (31.2-198.0) mg/dL Sodium 132 L (137-145) mmol/L Potassium 3.4 L (3.5-5.1) mmol/L Chloride 94 L (98-107) mmol/L BUN 107 H* (7-17) mg/dL Creatinine 3.43 H (0.52-1.04) mg/dL Glucose 112 H (74-99) mg/dL POC Glucose (mg/dL) (75-99) mg/dL Total Bilirubin 3.4 H (0.2-1.3) mg/dL AST 115 H (14-36) U/L ALT 364 H (4-34) U/L Alkaline Phosphatase 219 H (38-126) U/L Total Protein 5.4 L (6.3-8.2) g/dL Albumin 3.0 L (3.5-5.0) g/dL Assessment and Plan Plan: Assessment: 1. Acute kidney injury secondary to ATN, post CABG. last hemodialysis January 01. Creatinine trending down - 3.43 today. Nonoliguric. Baseline creatinine near 1. 2. Status post CABG and aortic valve replacement on 12/26/2020. 3. Acute diastolic CHF and moderate tricuspid regurgitation and pulmonary hypertension. 4. Volume overload. Improved with ultrafiltration and improved urine output. Status post left-sided thoracentesis on 01/03/2021 with 1.5 L drained. 5. Acute blood loss anemia status post blood transfusion this admission. 6. Shock liver. 7. Hypokalemia from diuresis. Being replaced. 8. Benign hypertension. Stable. 9. Elevated BUN secondary to acute kidney injury and acute blood loss. 10. Lethargy. Concern for uremia. Plan: Hemodialysis today without any ultrafiltration due to concern for uremia. Continue to hold off on diuretics. Potassium being replaced. Encouraged oral intake. Continue to monitor renal function and urine output. Patient has a femoral catheter that was placed December 29. If renal function continues to improve, it can be discontinued in the next 24-48 hours.
[2021-01-05] MEDS: MAGNESIUM HYDROXIDE 2,400 MG/10 ML CUP PO PRN (09:44)
--- NOTE | 2021-01-05 10:03 | PN ---
PROGRESS NOTE Monique is a 65-year-old lady with history of aortic valve replacement and one-vessel bypass, who is making slow but steady recovery. This morning she is doing well and is free of symptoms. Remains in sinus rhythm. PHYSICAL EXAMINATION: Heart rate is 80 beats per minute. Blood pressure is 143/69. Respiratory rate 18. Chest exam reveals good air entry bilaterally. Heart exam reveals first and second heart sounds. No gallop. Examination of extremities did not reveal any edema. LABS: Labs show a hemoglobin of 10.4, platelet count is 114, which is an improvement from where we were. BUN and creatinine have been stable. Creatinine is getting better. AST and ALT are improving. ASSESSMENT: 1. Coronary artery disease, status post coronary artery bypass grafting. 2. Aortic stenosis, status post aortic valve replacement. 3. Hypovolemic shock with acute liver and renal injury. 4. Paroxysmal atrial fibrillation. PLAN: Patient is making slow but steady recovery not a candidate for anticoagulation because of severe thrombocytopenia. The patient remains in stable sinus rhythm. MMODL / IJN: [id number] /
--- NOTE | 2021-01-05 10:11 | XR ---
EXAMINATION TYPE: XR chest 2V DATE OF EXAM: 01/05/2021 COMPARISON: 01/04/2021 HISTORY: 65 year-old female post cardiac surgery TECHNIQUE: AP and lateral views FINDINGS: Median sternotomy wires are present. A few motion artifacts throughout. Prosthetic aortic valve. Smal [id number] left effusion has increased in the interval. Trace right effusion noted. Previous left apical pneumothorax no longer identified. Heart mildly enlarged. IMPRESSION: 1. Increasing [id number] left effusion with adjacent atelectasis and/or consolidation. 2. Trace right effusion. 3. Previous left apical pneumothorax no longer identified.
--- NOTE | 2021-01-05 11:27 | P.PN ---
Subjective Progress Note Date: 01/05/21 Principal diagnosis: Severe bicuspid aortic valve stenosis, single-vessel coronary artery disease. 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 POD #10 aortic valve replacement with a #21 mm Jackson Inspiris bioprosthetic aortic valve. Coronary artery bypass grafting 1 with a reverse saphenous vein graft off the aorta to the right coronary artery. Clip ligation of left atrial appendage with a 35 mm Atriclip. Intraoperative transesophageal echocardiogram. Postoperative acute blood loss anemia, expected due to hemodilution and cardiop ulmonary bypass. Hypotension requiring pressor use, resolved. Acute kidney injury secondary to hypoperfusion requiring initiation of dialysis. Shock liver secondary to hypoperfusion, improving. Lactic acidosis secondary to hypoperfusion, resolved. Hypoxic respiratory failure requiring BiPAP, currently on 4 L oxygen nasal cannula. Thrombocytopenia, improving. A. fib with RVR, known common occurrence after open heart surgery, currently sinus rhythm. Coagulopathy with DIC, improving. Left pleural effusion, requiring left thoracentesis. The patient was seen in follow-up today 01/05/2021 at her bedside in the intensive care unit. The patient is currently sitting up to the bedside chair, she is awake, alert and oriented 3. Denies any complaints of shortness of breath or pain at this time. The patient does state that she does feel like she has generalized weakness and feels quite tired. Denies any complaints of nausea at this time. She remains hemodynamically stable and is currently on no inotropic or pressor support. She has been afebrile the last 24 hours. Acevedo catheter remains for accurate I's and O's, draining clear yellow urine with 435 mL output in the last 8 hours. Oxygen saturations are 94% on 2 L nasal cannula and she is achieving 500 mL with much encouragement on her incentive spirometry. Bedside telemetry showing normal sinus rhythm with first-degree heart block heart rate 78 BPM. Heart hugger is in place that she is demonstrating appropriate use. Atrial and ventricular epicardial pacemaker wires in place and grounded. Laboratory results this morning show a WBC count 15.0, hemoglobin 10.4, hematocrit 30.0, platelets 114, sodium 132, potassium 3.4, BUN trending up at 107, creatinine trending down 3.43, and liver enzymes continue to trend down with her AST 115 today and ALT 364 today. Right femoral dialysis line remains in place and she did not receive hemodialysis yesterday or any Lasix. Dialysis and Lasix has been managed by nephrology. Objective - Vital Signs Vital signs: Vital Signs Temp 96.4 F L 01/05/21 09:00 Pulse 84 01/05/21 10:00 Resp 20 01/05/21 10:00 BP 133/66 01/05/21 10:00 Pulse Ox 93 L 01/05/21 10:00 Intake & Output 01/04/21 01/05/21 01/05/21 18:59 06:59 18:59 Intake Total 490 100 Output Total 905 825 270 Balance -415 -725 -453 Weight 61.9 kg Intake: Oral 490 100 Output: Urine 905 825 270 Other: Voiding Method Indwelling Catheter Indwelling Catheter Indwelling Catheter # Bowel Movements 1 ABP, PAP, CO, CI - Last Documented Arterial Blood Pressure 194/64 Pulmonary Artery Pressure 12/5 Cardiac Output 4.2 Cardiac Index 2.6 - Constitutional General appearance: Present: average body habitus, cooperative, no acute distress - EENT Eyes: Present: normal appearance. Absent: scleral icterus ENT: Present: hearing grossly normal - Neck Details: Neck is supple, no JVD. No lymphadenopathy. - Respiratory Details: Lung sounds essentially clear throughout, diminished to her bilateral bases left greater than right. Respirations are symmetrical and nonlabored. No wheezes, rhonchi or crackles. Oxygen saturation is 94% on 2 L nasal cannula. Achieving 500 mL on her incentive spirometry with much encouragement. - Cardiovascular Details: Regular rhythm and rate. S1 and S2 present, negative for S3, gallop or murmur. Sternum is stable. Bedside telemetry showing normal sinus rhythm with first- degree heart block heart rate 78 BPM. Trace edema to her bilateral lower extremities. Heart hugger is in place and she is demonstrating appropriate use. Atrial and ventricular epicardial pacemaker wires in place and grounded. Knee- high DARBY hose and sequential compression devices in place to bilateral lower extremities. - Gastrointestinal Gastrointestinal Comment(s): Abdomen is soft, nontender and nondistended. Active bowel sounds present in all 4 abdominal quadrants. No guarding or rigidity. No megaly appreciated. Tolerating oral intake. - Genitourinary Genitourinary Comment(s): Acevedo catheter for accurate I&O. Draining clear yellow urine with 435 mL output in the last 8 hours. - Integumentary Integumentary Comment(s): Skin is warm and dry. No clubbing or cyanosis is present. Midline sternal incision is clean, dry and approximated. No drainage or redness is present. Right lower extremity EVH site is clean, dry and approximated. No drainage or redness is present. - Neurologic Neurologic: Present: CNII-XII intact. Absent: focal deficits - Musculoskeletal Musculoskeletal: Present: gait normal, generalized weakness, strength equal bilaterally - Psychiatric Psychiatric: Present: A&O x's 3, appropriate affect, intact judgment & insight - Allied health notes Allied health notes reviewed: nursing - Labs CBC & Chem 7: 01/05/21 03:09 01/05/21 03:09 Labs: Abnormal Lab Results - Last 24 Hours (Table) 12/29/20 01/04/21 01/04/21 Range/Units 15:15 11:54 17:10 WBC (3.8-10.6) k/uL RBC (3.80-5.40) m/uL Hgb (11.4-16.0) gm/dL Hct (34.0-46.0) % RDW (11.5-15.5) % Plt Count (150-450) k/uL Haptoglobin 18.1 L (31.2-198.0) mg/dL Sodium (137-145) mmol/L Potassium (3.5-5.1) mmol/L Chloride (98-107) mmol/L BUN (7-17) mg/dL Creatinine (0.52-1.04) mg/dL Glucose (74-99) mg/dL POC Glucose (mg/dL) 114 H 120 H (75-99) mg/dL Total Bilirubin (0.2-1.3) mg/dL AST (14-36) U/L ALT (4-34) U/L Alkaline Phosphatase (38-126) U/L Total Protein (6.3-8.2) g/dL Albumin (3.5-5.0) g/dL 01/05/21 01/05/21 Range/Units 03:09 03:09 WBC 15.0 H (3.8-10.6) k/uL RBC 3.26 L (3.80-5.40) m/uL Hgb 10.4 L (11.4-16.0) gm/dL Hct 30.0 L (34.0-46.0) % RDW 17.2 H (11.5-15.5) % Plt Count 114 L (150-450) k/uL Haptoglobin (31.2-198.0) mg/dL Sodium 132 L (137-145) mmol/L Potassium 3.4 L (3.5-5.1) mmol/L Chloride 94 L (98-107) mmol/L BUN 107 H* (7-17) mg/dL Creatinine 3.43 H (0.52-1.04) mg/dL Glucose 112 H (74-99) mg/dL POC Glucose (mg/dL) (75-99) mg/dL Total Bilirubin 3.4 H (0.2-1.3) mg/dL AST 115 H (14-36) U/L ALT 364 H (4-34) U/L Alkaline Phosphatase 219 H (38-126) U/L Total Protein 5.4 L (6.3-8.2) g/dL Albumin 3.0 L (3.5-5.0) g/dL - Imaging and Cardiology Chest x-ray: report reviewed, image reviewed Assessment and Plan Assessment: 1. Severe bicuspid aortic valve stenosis, status post aortic valve replacement with a #21 mm Jackson Inspiris bioprosthetic aortic valve 2. Single-vessel coronary artery disease, status post coronary artery bypass grafting 1 with a reverse saphenous vein graft aorta to the right coronary artery 3. History of hypertension 4. History of hyperlipidemia 5. History of hypothyroid 6. 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 Right internal carotid artery stenosis 50-79% per carotid duplex 8. Remote history of tobacco abuse 9. Preoperative elevation of her AST and ALT 10. Degenerative arthritis with chronic back pain 11. Family history of colon cancer 12. Postoperative acute blood loss anemia, expected secondary to hemodilution and cardiopulmonary bypass 13. Hypotension requiring pressor use 14. Acute kidney injury secondary to hypoperfusion requiring initiation of dialysis 15. Shock liver secondary to hypoperfusion 16. Lactic acidosis secondary to hypoperfusion 17. Hypoxic respiratory failure requiring BiPAP 18. Thrombocytopenia 19. A. fib with RVR, known common occurrence after open heart surgery, status post exclusion of the left atrial appendage 20. Coagulopathy with DIC 21. Left pleural effusion, status post thoracentesis with 1.5 L of thin serosanguineous drainage drained Plan: 1. Continue low-dose aspirin, and beta kiki. Will increase beta kiki as tolerated, currently on metoprolol tartrate 25 mg by mouth twice a day. 2. Continue to hold Plavix. Platelets continue to trend up currently 114 today. 3. Wean O2 as tolerated. Encourage incentive spirometry use 10 times every hour while awake. Bronchodilators per pulmonary/critical care medicine. 4. Increase activity as tolerated, up to chair for meals, ambulate as tolerated. PT/OT/cardiac rehab following. 5. Hematology continues to follow for thrombocytopenia, elevated liver function. HIT panel was negative. 6. Will monitor daily labs and chest x-rays. Electrolyte replacement per protocol. 7. GI/DVT prophylaxis 8. Pain control current when necessary orders. Narcotics on hold due to the patient's episodes of feeling tired. 9. Insulin management per primary care service. Patient is not diabetic, hemoglobin A1c 5.7% 10. Nephrology continues to follow, hemodialysis recommendations and Lasix per nephrology management. Per nephrology the patient will undergo hemodialysis today and potentially remove the right groin dialysis catheter tomorrow 01/06/2021. 11. Continue Acevedo for accurate I's and O's. Continue to record strict accurate intake and output. Daily weights 12. Keep epicardial pacemaker wires in place and grounded. 13. Continue to encourage nutrition, continue ensure supplements. 14. Transfer orders will be placed for third for cardiac stepdown unit. 15. More recommendations to follow based on patient's progress. Time with Patient: Greater than 30
--- NOTE | 2021-01-05 11:54 | P.PN ---
Subjective Progress Note Date: 01/05/21 Principal diagnosis: Aortic valve replacement and CABG 1 vessel postoperative day for 08 02 2021 the patient is being seen for a follow-up. Awake and alert, lethargic. Response to the moving all 4 extremities without any limitation. She remains on BiPAP at a pressure of 12/5 with an FiO2 of 50%. Generating a tidal volumes between 350 and 400 with a respiratory rate in the mid 20s. Abdomen is ventilation is around 8 L per minute. The patient has the chest tube still in place both the right pleural and mediastinal chest tube. The output has been 2 40 mL overnight over the past 12 hours and output is still bloody. She made minimal amount of urine output probably in the order of 50 mL all night. Hemodynamically stable. Off Agustín-Synephrine. She converted into sinus rhythm with a first-degree AV block. Chest x-ray showing some mild four-vessel congestion and all of the chest tubes are in place. Hemoglobin is at 8.5 with a platelet count of 25 and a coagulation profile shows an INR of 2.3 with a PT of 22.3 and a PTT of 32, lactic acid level is down to 1.8, BUN is 41 with a creatinine of 2.5 and a sodium of 136 with a potassium of 3.9. Glucose is 125. Shock liver is gradually improving and the AST is down to 4112 and ALT is down to 2017. She underwent hemodialysis yesterday without any major complications. He dialyzes catheter is still present in her right groin. No signs of any bleeding. No other issues for now. She is arousable. She follows commands and answers questions appropriately. No other significant events overnight. Note that her follow-up digoxin level was down to 2.1. She got transfused with platelets yesterday. Patient was reevaluated today on 01/01/2021, patient remains in the ICU, fully awake, alert, in no distress. Patient is on 3 L nasal cannula. She denies any shortness of breath, continues to have a right sided chest tube in place, she has mostly symptoms of surgical pain, and intermittent episodes of nausea. Patient is off pressors, she is in sinus rhythm with first-degree AV block, remains on IV Zosyn. Her labs were reviewed, platelets remained low at 63,000 BUN is 52 creatinine 3.31, INR is 1.8. Liver enzymes remain elevated. Urine output about 20 mL per hour overnight. She received dialysis yesterday for the third time. Chest x-ray today showed a left-sided pneumothorax and good sized left-sided pleural effusion, discussed this issue with thoracic surgery planned to observe for now, no plans for thoracentesis or chest tube placement. I prefer. Chest tube placement specially with her platelets being as low. Patient was reevaluated today on 01/02/2021, remains in the ICU, she is on 3 L nasal cannula, patient received hemodialysis yesterday, and 2.2 L were removed. Today her chest x-ray continues to show left lower lobe atelectasis and pleural effusion, she continues to have a small left-sided apical pneumothorax, her platelets are down to 62,000. Liver function is at this remain elevated. But seems to be trending down. Her IV fluids at KVO. Patient is in atrial fibrillation with controlled rate. Right-sided chest tube remains in place. Patient is not in any distress, again she is on 3 L nasal cannula. WBC count today is 18.5 hemoglobin is 9.9 her electrolytes are normal renal profile showed a BUN of 61 creatinine of 3.37. Patient was reevaluated today on 01/03/2021, remains in the ICU, on few liters nasal cannula, patient is feeling better, breathing easier, however her chest x- ray clearly showed a good sized left-sided pleural effusion worsening compared to previous x-rays. Patient also had a left-sided apical pneumothorax which is not clearly seen mostly because of the worsening pleural effusion noted on the left side. Her WBC count today is 15.5 hemoglobin is 10.3 platelets are up to 84,000. PT and PTT are normal. Lites are normal. Renal profile is worse with 85 BUN and creatinine 4.11. Patient is on hemodialysis. After reviewing the chest x-ray, discussed the patient's condition with the thoracic surgery/Dr. Gaffney, and recommended left-sided thoracentesis which was done, and I was able to drain 1.5 L of gross blood from the left pleural space. After the procedure he can clearly see the left apical pneumothorax which was present all along. And it is not a complication related to the thoracentesis. Reevaluated today on 01/04/2021, patient remains in the ICU, resting, she is extremely tired and exhausted, weak, she is on 4 L nasal cannula, and her O2 saturation is in the mid 90s. Chest x-ray is basically about the same, she seem s to be having a stable left apical pneumothorax, and small amount of left pleural effusion seems to be rebuilding again compared to the chest x-ray that was done right after thoracentesis yesterday. Clinically however the patient is about the same. WBC count today 17.5 hemoglobin is 10.8 electrodes are normal renal profile remains poor with a BUN of 103 creatinine 4.0. Liver enzymes remain elevated but they seem to be trending down, AST is 208 ALT is 495 and PHOSPHATASE IS 254 Patient was reevaluated today on 01/05/2021, remains in the ICU, sitting at a bedside chair, in no distress, on 2 L nasal cannula, O2 saturation is in in the low 90s. Labs this morning were basically unremarkable, hemoglobin is 10.4. Platelets are 114. Electrolytes are normal. Creatinine is 3.43. Liver enzymes are trending down. Femoral dialysis catheter remains in place. Chest x-ray is showing a small left pleural effusion, could not see the left-sided pneumothorax, but it seems to be possibly very apical. Objective - Vital Signs Vital signs: Vital Signs Temp 96.4 F L 01/05/21 09:00 Pulse 84 01/05/21 10:00 Resp 20 01/05/21 10:00 BP 133/66 01/05/21 10:00 Pulse Ox 93 L 01/05/21 10:00 Intake & Output 01/04/21 01/05/21 01/05/21 18:59 06:59 18:59 Intake Total 490 100 Output Total 905 825 270 Balance -415 -725 -270 Weight 61.9 kg Intake: Oral 490 100 Output: Urine 905 825 270 Other: Voiding Method Indwelling Catheter Indwelling Catheter Indwelling Catheter # Bowel Movements 1 ABP, PAP, CO, CI - Last Documented Arterial Blood Pressure 194/64 Pulmonary Artery Pressure 12/5 Cardiac Output 4.2 Cardiac Index 2.6 - Exam Physical Exam: Revealed a 65-year-old female in no distress, on 2 L nasal ca nnula. O2 saturation is 96%. Head: Atraumatic, normocephalic. HEENT:[Neck is supple.] [No neck masses.] [No thyromegaly.] [No JVD.] PERRLA, EOMI, nonicteric. has a right femoral dialysis catheter Chest: [Symmetrical chest expansion, diminished breath sounds at the bases bilaterally. . Cardiac Exam: [Normal S1 and S2, no S3 gallop, no murmur.] Abdomen: [Soft, nontender, no megaly, no rebound, no guarding, normal bowel sounds.] Extremities: [No clubbing, no edema, no cyanosis.] Neurological Exam: [No focal neurologic deficit.] Alert and oriented 3. Patient is noted to be generally weak. Psychiatric: Normal mood, affect and normal mental status examination. Skin: No rashes. - Labs CBC & Chem 7: 01/05/21 03:09 01/05/21 03:09 Labs: Abnormal Lab Results - Last 24 Hours (Table) 12/29/20 01/04/21 01/04/21 Range/Units 15:15 11:54 17:10 WBC (3.8-10.6) k/uL RBC (3.80-5.40) m/uL Hgb (11.4-16.0) gm/dL Hct (34.0-46.0) % RDW (11.5-15.5) % Plt Count (150-450) k/uL Haptoglobin 18.1 L (31.2-198.0) mg/dL Sodium (137-145) mmol/L Potassium (3.5-5.1) mmol/L Chloride (98-107) mmol/L BUN (7-17) mg/dL Creatinine (0.52-1.04) mg/dL Glucose (74-99) mg/dL POC Glucose (mg/dL) 114 H 120 H (75-99) mg/dL Total Bilirubin (0.2-1.3) mg/dL AST (14-36) U/L ALT (4-34) U/L Alkaline Phosphatase (38-126) U/L Total Protein (6.3-8.2) g/dL Albumin (3.5-5.0) g/dL 01/05/21 01/05/21 Range/Units 03:09 03:09 WBC 15.0 H (3.8-10.6) k/uL RBC 3.26 L (3.80-5.40) m/uL Hgb 10.4 L (11.4-16.0) gm/dL Hct 30.0 L (34.0-46.0) % RDW 17.2 H (11.5-15.5) % Plt Count 114 L (150-450) k/uL Haptoglobin (31.2-198.0) mg/dL Sodium 132 L (137-145) mmol/L Potassium 3.4 L (3.5-5.1) mmol/L Chloride 94 L (98-107) mmol/L BUN 107 H* (7-17) mg/dL Creatinine 3.43 H (0.52-1.04) mg/dL Glucose 112 H (74-99) mg/dL POC Glucose (mg/dL) (75-99) mg/dL Total Bilirubin 3.4 H (0.2-1.3) mg/dL AST 115 H (14-36) U/L ALT 364 H (4-34) U/L Alkaline Phosphatase 219 H (38-126) U/L Total Protein 5.4 L (6.3-8.2) g/dL Albumin 3.0 L (3.5-5.0) g/dL Assessment and Plan Assessment: Impression: Status post aortic valve replacement and single-vessel bypass surgery posto perative day #10 Shock liver secondary to cardiogenic shock and severe metabolic acidosis secondary to cardiogenic shock, resolving. Coagulopathy secondary to shocked liver, Hyperlipidemia. Hypothyroidism. History of CVA. Episodes of atrial flutter and RVR, presently in normal sinus rhythm. Spontaneous Left-sided pneumothorax, exact etiology is not clear Acute kidney injury and renal failure secondary to cardiogenic shock/cardiorenal, patient has been on hemodialysis 3, being followed by nephr ology. 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 Left sided hemothorax, status post left-sided thoracentesis on 01/03/2021, and 1.5 L of gross blood removed from the left pleural space. Recurrent left-sided pleural effusion likely recurrent hemothorax. Not large enough to warrant another thoracentesis today. Patient may eventually require chest tube placement. Recommendation: Continue to monitor the patient in the ICU for today. Continue present supportive care measures. Continue beta blockers. Titrate oxygen accordingly. Continue bronchodilators. Continue to monitor liver enzymes. Continue insulin Continue GI and DVT prophylaxis. We'll continue to follow. Time with Patient: Less than 30
[2021-01-05 12:13] LABS: Glucose,Whole Blood 141 mg/dL (75-99)
--- NOTE | 2021-01-05 14:56 | P.PN ---
Subjective Progress Note Date: 01/05/21 HISTORY OF PRESENT ILLNESS This is a 65-year-old female patient of Dr. 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 Patient underwent echocardiogram that revealed an ejection fraction of 55-60% with LVH, mild to moderate MR, bicuspid severely calcified aortic valve with moderate aortic regurgitation, moderate tricuspid regurgitation. The patient underwent cardiac julián terizationTEE for further evaluation. The cath showed right coronary artery stenosis in the order of 85% without any significant coronary artery disease. The transthoracic echocardiogram showed severe aortic stenosis. Patient underwent aortic valve replacement and one-vessel CABG with reverse saphenous vein graft off the aorta to the right coronary artery. Patient was admitted into the intensive care unit and was successfully extubated. She is seen today in the intensive care unit. She is up in a recliner. [place] in place, mediastinal and right-sided chest tubes in place, Acevedo catheter in place. Patient denies having any chest pain. She states she is not feeling too bad today. She has a little nausea. No abdominal pain. She states she slept okay last night. She has been afebrile, heart rate 71, blood pressure 119/52, pulse ox 90% on 5 L nasal cannula. Blood work this morning reveals W BC 15.2, hemoglobin 8, platelet count 168. Electrolytes normal, BUN 19 and creatinine 0.78. Blood sugars running between 124 and 141. AST 167. Chest x-ray reveals small residual right apical pneumothorax may be present. Chest tubes pulled back slightly from comparison. [place] catheter is somewhat peripheral and the right main pulmonary artery region. Cardiomegaly. Small left pleural effusion. 12/28: Patient remains in the intensive care unit. Patient has become hypoten sive with low urine output, elevated lactic acid, anemia, liver enzyme elevation and generalized anasarca. Patient is been started on dopamine, Primacor and is status post albumin and is status post 1 unit packed RBCs this morning. Urine output is improving. She is on BiPAP. Patient complains of generalized not feeling well and shortness of breath. Repeat CXR reports slight increase in mild left hilar and left basilar edema and/or atelectasis. Small pleural effusion. WBC 18.7, hemoglobin initially 6.8 and repeat a 0.1. Platelet count 124. INR 2.8. Electrolytes normal. BUN 32 and creatinine 1.53. Blood sugars running in the 140-170s. Total bilirubin 1.9, AST 1140, ALT 662, alkaline phosphatase 30. Amylase and lipase normal. 12/29: She remains in the intensive care unit. She has not been intubated. Her overall condition continues to decline and she is scheduled for dialysis catheter placement to start hemodialysis. She has had virtually no urine output despite being on Lasix drip patient also went into atrial fibrillation and started on digoxin. She remains with right pleural and mediastinal chest tubes are in place. Additional new diagnoses include A. fib with RVR, ischemic bowel suspected, bicytopenia. Patient is awake. She is complaining of chest discomfort. She is not have increased edema. Her temperature has been low down to 96.5. Heart rate 114, blood pressure 122/54, pulse ox 90%. WBC 14.6, hemoglobin 6, platelet count 26. INR 3.3. Electrolytes normal. BUN 53 and creatinine 2.77. Calcium 7.8. Ionized calcium 3.8. Total bilirubin 3, AST 11,442, ALT 3572, alkaline phosphatase 41. She has been ordered for plasma, platelets and RBC transfusions. 12/30: Patient is currently on BiPAP. She had dialysis catheter placed by vascular surgeon yesterday and underwent her first hemodialysis with removal of 3 L. She has had no urine output overnight. She remains with chest tubes in place. Acevedo catheter is in place. Repeat blood work reveals W BC 13.3, hemoglobin 9, platelet count 24. She is scheduled for platelet transfusion today. INR 2.6. BUN 33 creatinine 2.18. Blood sugars are running between 110 and 138. Magnesium 2.2. Potassium 4.3. Total bilirubin 5.0, AST 8066, ALT 2707, alkaline phosphatase 74. Digoxin level II.9. Patient not currently on digoxin. cardiac monitor sinus rhythm with a bundle branch block. She has been afebrile, heart rate in the 80s, blood pressure 138/52, pulse ox 93%. Cultures no growth at 24 hours. 12/31: Patient is scheduled for repeat dialysis today. She has had 15 mL output overnight of urine. Patient complains of nausea. Reglan changed to scheduled. She states she's had some ice chips. Patient is awake and alert but thinks it's June 2021. She did have a bowel movement this morning. Patient has been afebrile, heart rate in the 80s and 90s, blood pressure 145/72, pulse ox 97% on BiPAP. Repeat blood work reveals WBC 9.7, hemoglobin 8.5, platelet count 25. No plan for platelet transfusion today. INR is 2.3. Sodium 136 otherwise electrolytes are normal. BUN 41 and creatinine 2.58. Ionized calcium 4.1, total bilirubin 7.6, AST 4112, ALT 2017, alkaline phosphatase 94. Blood sugars are running between 96 and 136. PICC line is ordered for tomorrow. 01/01: Patient remains in the intensive care unit. She is now off BiPAP. Patient is starting to make urine at 15-20 mL per hour. Liver function tests are improving. She states that she is feeling a little nausea that comes and goes. She does have Zofran available and Reglan has been changed to when necess patrice. Pulse ox 93% on 3 L nasal cannula, blood pressure 163/75, heart rate 80s, afebrile. WBC 13.7, hemoglobin 9.1, platelet count 33. INR 1.8. Electrolytes normal. BUN 52 and creatinine 3.31. Blood sugars are running between 123 and 143. Ionized calcium 4.4, total bilirubin 11.1, AST 2123, ALT 1484, alkaline phosphatase 128. Chest x-ray reveals diminished lung volumes suspect worsening pulmonary vascular congestion. Increased moderate left pleural effusion with adjacent atelectasis and/or consolidation. Fine linear density projecting across the left apex suspected artifact rather than small pneumothorax. Ultrasound of the chest revealed left pleural effusion pocket 10.4 cm. Patient is status post calcium gluconate. Metoprolol increased to 25 mg twice daily. Patient is off antibiotics. 01/02: Patient is seen today sitting in recliner and her ICU room. She remains with [address] and Acevedo catheter. She has improved urine output. She complains of nausea. Last bowel movement was on December 31. She has been afebrile, heart rate in the 60s, blood pressure 140/74, pulse ox 99% on 3 L nasal cannula. Repeat blood work reveals WBC 18.5, hemoglobin 9.9, platelet count 62. INR 1.4. Sodium 136, BUN 61 and creatinine 3.37. Blood sugars running between 115 and 155. Total bilirubin 11.1, AST 1204, ALT 1176, alkaline phosphatase 179. Repeat chest x-ray reveals continued pulmonary vascular congestion and moderate left effusion with adjacent atelectasis and/or consolidation. Right-sided chest tube. No pneumothorax. Patient underwent dialysis yesterday with removal of 2.2 L. Dialysis treatment on hold for now the patient is followed closely by nephrology. 01/03: Patient remains in intensive care unit. Patient underwent left-sided thoracentesis with removal of 1.5 L. She has increased oxygen need from 3 L to 6 L with pulse ox of94%. Heart rate has been in the 70s, blood pressure 148/78. cardiac monitor sinus rhythm. 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 Patient has had good urine output with no plan for dialysis today. No plan for Lasix today. Repeat blood work today is showing improvement with white count down to 15.5, hemoglobin 10.3, platelet count 84. INR 1.2. Sodium 135, potassium 3.5, chloride 95, CO2 28, worsening renal function with BUN 85 and creatinine 4.11. Total bilirubin 6.6, AST 568, ALT 867, alkaline phosphatase 256. 01/04: Patient is seen today sitting in recliner. Nephrology is planning to hold dialysis and diuretics today. Patient states that she does not feel bad today. She continues to have nausea off and on. She has her first meal but she is lactose intolerance and this will be addressed in her orders. Repeat chest x- ray reveals diminished size of left apical pneumothorax. Worsening left lower lobe infiltrate and/or pleural effusion. She has had chest tube removed. Acevedo catheter remains in place. WBC 17.5, hemoglobin 10.8. Electrolytes normal. BUN 103 and creatinine 4. AST 208, ALT 495 and alkaline phosphatase 254. All liver function tests are improving. 01/05: The patient remains in the intensive care unit. She is seen today sitting in recliner and appears to be comfortable. Patient states she is pain-free. She denies shortness of breath. She still has Acevedo catheter in place. She states she is not feeling too bad today. Patient has been afebrile,heart rate 76, blood pressure 137/70, pulse ox 92% on 2 L nasal cannula. WBC 15.0, hemoglobin 10.4, platelet count 114. Sodium 132, potassium 3.4, chloride 94, CO2 29, P1 107, creatinine 3.43. Blood sugars running between 100 1220. Total bilirubin 3.4, AST 115, ALT 364, alkaline phosphatase 219. Patient has been seen by physical therapy and occupational therapy and recommend home with homecare. Right femoral dialysis catheter remains in place but if renal function remains stable for the next 24-48 hours, this will be discontinued per nephrology. REVIEW OF SYSTEMS Constitutional: No fever, no chills, no night sweats. No weight change. Reports generalized weakness, reports fatigue reports lethargy. No daytime sleepiness. EENT: No headache. No change in vision, no loss of vision. No loss of Hearing, no dizziness. No nasal drainage or congestion. No epistaxis. No sore throat. Lungs: Reports shortness of breath, cough, no sputum production. No wheezing. Cardiovascular: Reports chest discomfort, reports lower extremity edema. Reports generalized edema. No palpitations. No paroxysmal nocturnal dyspnea. No orthopnea. No lightheadedness or dizziness. No syncopal episodes. Abdominal: No abdominal pain. Reports intermittent nausea, denies vomiting. No diarrhea. No constipation. No bloody or tarry stools. Reports loss of appetite. Genitourinary: No dysuria, increased frequency, urgency. No urinary retention. Musculoskeletal: No myalgias. Reports muscle weakness, no gait dysfunction, no frequent falls. No back pain. No neck pain. Integumentary: No wounds, no lesions. No rash or pruritus. Neurologic: No aphasia. No facial droop. No change in mentation. No head injury. No headache. No paralysis. No paresthesia. Psychiatric: No depression. No anxiety. Endocrine: Reports abnormal blood sugars. PHYSICAL EXAMINATION Gen: This paradise 65-year-old female. She is resting in recliner, she is on nasal cannula, appears to be comfortable at rest. HEENT: Head is atraumatic, normocephalic. Pupils equal, round. Sclerae is icteric. NECK: Supple. No JVD. No lymphadenopathy. No thyromegaly. LUNGS: Diminished bilaterally. No wheezes or rhonchi. No intercostal retractions. HEART: Regular rate and rhythm. No murmur. ABDOMEN: Soft. Bowel sounds are present. No masses. No tenderness. Acevedo catheter in place with remy urine. EXTREMITIES: Mild generalized pedal edema. No calf tenderness. Dorsalis pedis palpable bilaterally. NEUROLOGICAL: Patient is awake, alert and oriented x3. Cranial nerves 2 through 12 are grossly intact. ASSESSMENT AND PLAN 1. Aortic valve replacement for bicuspid valve with moderate aortic regurgitation and single-vessel CABG with CVG to RCA. Patient is postop day # 10. She has been successfully extubated and now on nasal cannula. Continue current management per cardiothoracic surgery. 2. Rule out cardiogenic shock. Currently stable. 3. Transaminitis secondary to hypoperfusion and shock liver, improving. Continue to monitor liver function tests. 4. Acute blood loss anemia, expected following surgery. Repeat transfusion today. 5. Lactic acidosis secondary to hyperperfusion, improving. 6. A. fib with RVR, paroxysmal atrial fibrillation, converted to sinus rhythm. 7. Possible ischemic bowel. 8. Bicytopenia with thrombocytopenia and anemia. Status post total transfusion of 5 units of platelets, 4 units of fresh frozen plasma, 4 units of packed RBCs. 9. Acute renal failure requiring dialysis. Patient started hemodialysis on December 29. No plan for dialysis today. Dialysis catheter to be removed in the next 24-48 hours. 10. Acute hypoxic respiratory failure requiring BiPAP. Patient is on nasal cannula. 11. SIRS with multiorgan failure. Continue current management. 12. Large left pleural effusion status post thoracentesis. 13. Hypertension. 14. Hyperlipidemia. 15. History of CVA 2. 16. Hypothyroidism. Continue levothyroxine 25 g daily. 17. Recurrent depression. Continue Zoloft 25 mg at bedtime. 18. Degenerative disc disease. 19. Moderate protein calorie malnutrition due to lack of oral intake. Diet changed to lactose free. 20. GI prophylaxis. Protonix 40 mg twice daily. 21. DVT prophylaxis. Off heparin due to thrombocytopenia DISCHARGE PLAN Home with Home Care. Impression and plan of care have been directed as dictated by the signing physician. Donna Gutierrez nurse practitioner acting as scribe for signing physician. Objective - Vital Signs Vital signs: Vital Signs Temp 96.4 F L 01/05/21 09:00 Pulse 84 01/05/21 10:00 Resp 20 01/05/21 10:00 BP 133/66 01/05/21 10:00 Pulse Ox 93 L 01/05/21 10:00 Intake & Output 01/04/21 01/05/21 01/05/21 18:59 06:59 18:59 Intake Total 490 100 Output Total 905 825 270 Balance -704 -155 -335 Weight 61.9 kg Intake: Oral 490 100 Output: Urine 905 825 270 Other: Voiding Method Indwelling Catheter Indwelling Catheter Indwelling Catheter # Bowel Movements 1 ABP, PAP, CO, CI - Last Documented Arterial Blood Pressure 194/64 Pulmonary Artery Pressure 12/5 Cardiac Output 4.2 Cardiac Index 2.6 - Labs CBC & Chem 7: 01/05/21 03:09 01/05/21 03:09 Labs: Abnormal Lab Results - Last 24 Hours (Table) 12/29/20 01/04/21 01/04/21 Range/Units 15:15 11:54 17:10 WBC (3.8-10.6) k/uL RBC (3.80-5.40) m/uL Hgb (11.4-16.0) gm/dL Hct (34.0-46.0) % RDW (11.5-15.5) % Plt Count (150-450) k/uL Haptoglobin 18.1 L (31.2-198.0) mg/dL Sodium (137-145) mmol/L Potassium (3.5-5.1) mmol/L Chloride (98-107) mmol/L BUN (7-17) mg/dL Creatinine (0.52-1.04) mg/dL Glucose (74-99) mg/dL POC Glucose (mg/dL) 114 H 120 H (75-99) mg/dL Total Bilirubin (0.2-1.3) mg/dL AST (14-36) U/L ALT (4-34) U/L Alkaline Phosphatase (38-126) U/L Total Protein (6.3-8.2) g/dL Albumin (3.5-5.0) g/dL 01/05/21 01/05/21 Range/Units 03:09 03:09 WBC 15.0 H (3.8-10.6) k/uL RBC 3.26 L (3.80-5.40) m/uL Hgb 10.4 L (11.4-16.0) gm/dL Hct 30.0 L (34.0-46.0) % RDW 17.2 H (11.5-15.5) % Plt Count 114 L (150-450) k/uL Haptoglobin (31.2-198.0) mg/dL Sodium 132 L (137-145) mmol/L Potassium 3.4 L (3.5-5.1) mmol/L Chloride 94 L (98-107) mmol/L BUN 107 H* (7-17) mg/dL Creatinine 3.43 H (0.52-1.04) mg/dL Glucose 112 H (74-99) mg/dL POC Glucose (mg/dL) (75-99) mg/dL Total Bilirubin 3.4 H (0.2-1.3) mg/dL AST 115 H (14-36) U/L ALT 364 H (4-34) U/L Alkaline Phosphatase 219 H (38-126) U/L Total Protein 5.4 L (6.3-8.2) g/dL Albumin 3.0 L (3.5-5.0) g/dL
[2021-01-05 17:13] LABS: Glucose,Whole Blood 183 mg/dL (75-99)
[2021-01-05 20:42] LABS: Glucose,Whole Blood 181 mg/dL (75-99)
[2021-01-05] MEDS: SERTRALINE 25 MG TAB PO SCH (20:45)
[2021-01-05] MEDS: SENNOSIDES-DOCUSATE SODIUM 1 EACH TAB PO SCH (20:46)
[2021-01-05] MEDS: LEVOTHYROXINE 25 MCG TAB PO SCH (20:49)
[2021-01-05 21:59] LABS: Glucose,Whole Blood 127 mg/dL (75-99)
[2021-01-06] MEDS: ONDANSETRON 4 MG/2 ML VIAL IVP PRN ×3 (02:48→23:40)
[2021-01-06 04:20] LABS: Anisocytosis Slight; Basophils % (A) 0 %; Eosinophils # (A) 0.1 k/uL (0-0.7); Eosinophils % (A) 1 %; HGB 9.3 gm/dL (11.4-16.0); Hypochromasia Slight; Lymphocytes # (A) 0.4 k/uL (1.0-4.8); Lymphocytes % (A) 3 %; MCH 31.7 pg (25.0-35.0); MCHC 33.3 g/dL (31.0-37.0); MCV 95.1 fL (80.0-100.0); Macrocytosis Slight; Mean Platelet Volume 8.7; Monocytes # (A) 1.2 k/uL (0-1.0); Monocytes % (A) 8 %; Neutrophils # (A) 13.5 k/uL (1.3-7.7); Neutrophils % (A) 87 %; Platelet Count 120 k/uL (150-450); Poikilocytosis Slight; RBC 2.94 m/uL (3.80-5.40); RDW 17.5 % (11.5-15.5); WBC 15.6 k/uL (3.8-10.6)
[2021-01-06 04:39] LABS: Albumin 2.7 g/dL (3.5-5.0); Calcium 8.3 mg/dL (8.4-10.2); Potassium 3.7 mmol/L (3.5-5.1); Total Bilirubin 2.1 mg/dL (0.2-1.3); Total Protein 5.1 g/dL (6.3-8.2)
--- NOTE | 2021-01-06 06:36 | XR ---
EXAMINATION TYPE: XR chest 1V portable DATE OF EXAM: 01/06/2021 COMPARISON: 01/05/2021 HISTORY: Postcardiac surgery TECHNIQUE: Single frontal view of the chest is obtained. FINDINGS: There are sternotomy wires and a prosthetic heart valve. The heart size is normal for the technique but there is mild cephalization There is a retrocardiac opacity most likely representing a combination of atelectasis and effusion. T here is a probable small right effusion but the degree of pleural fluid has decreased in the interval since the prior study. There is no pneumothorax. The osseous structures remain grossly intact. IMPRESSION: Postoperative changes. There are bilateral pleural effusions and left lower lobe atelect asis which have decreased in the interval since the prior study.
[2021-01-06 06:50] LABS: Glucose,Whole Blood 122 mg/dL (75-99)
[2021-01-06] MEDS: IPRATROPIUM-ALBUTEROL 3 ML NEB INHALATION SCH ×4 (07:09→19:32)
[2021-01-06] MEDS: INSULIN ASPART (NovoLOG) 100 UNIT/ML VIAL SQ SCH ×4 (07:14→20:14)
[2021-01-06] MEDS: hydrALAZINE HCL 25 MG TAB PO SCH ×3 (09:08→22:52)
[2021-01-06] MEDS: ASPIRIN 81 MG PO SCH (09:08)
[2021-01-06] MEDS: PANTOPRAZOLE 40 MG/10 ML VIAL IVP SCH ×2 (09:09→20:18)
[2021-01-06] MEDS: METOPROLOL TARTRATE 25 MG TAB PO SCH ×2 (09:09→20:18)
[2021-01-06] MEDS: amLODIPine 5 MG TAB PO SCH (09:10)
[2021-01-06] MEDS ORDERED: FUROSEMIDE 10 MG/ML 10 ML VIAL IV STA (09:11)
[2021-01-06] MEDS: POTASSIUM CHLORIDE ER 20 MEQ TAB.ER PO SCH ×2 (09:21→12:13)
[2021-01-06] MEDS: ACETAMINOPHEN TAB 325 MG TAB PO PRN ×2 (10:03→17:29)
[2021-01-06 11:13] LABS: Glucose,Whole Blood 105 mg/dL (75-99)
--- NOTE | 2021-01-06 11:38 | P.PN ---
Subjective Progress Note Date: 01/06/21 Principal diagnosis: Severe bicuspid aortic valve stenosis, single-vessel coronary artery disease. 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 POD #11 aortic valve replacement with a #21 mm Jackson Inspiris bioprosthetic aortic valve. Coronary artery bypass grafting 1 with a reverse saphenous vein graft off the aorta to the right coronary artery. Clip ligation of left atrial appendage with a 35 mm Atriclip. Intraoperative transesophageal echocardiogram. Postoperative acute blood loss anemia, expected due to hemodilution and cardiop ulmonary bypass. Hypotension requiring pressor use, resolved. Acute kidney injury secondary to hypoperfusion requiring initiation of dialysis. Shock liver secondary to hypoperfusion, improving. Lactic acidosis secondary to hypoperfusion, resolved. Hypoxic respiratory failure requiring BiPAP, currently on 4 L oxygen nasal cannula. Thrombocytopenia, improving. A. fib with RVR, known common occurrence after open heart surgery, currently sinus rhythm. Coagulopathy with DIC, improving. Left pleural effusion, requiring left thoracentesis. The patient was seen in follow-up today 01/06/2021 at her bedside in the intensive care unit. The patient is currently sitting up to the bedside chair, she is awake, alert and oriented 3. Denies any complaints of shortness of breath or pain at this time. The patient reports that she feels much improved today although remains complaining of generalized weakness. She remained hemodynamically stable and is currently on no inotropic pressor support. She did undergo ultrafiltration yesterday per her right groin dialysis catheter. Laboratory results this morning show a WBC count 15.6, hemoglobin 9.3, hematocrit 28.0, platelets 120, sodium 137, potassium 3.7, BUN 50, creatinine 1.87, and her AST and ALT continue to trend down with her AST today 84 and her ALT 268. Oxygen saturations are 93% on 2 L nasal cannula and she is achieving 500 mL on her incentive spirometry with encouragement. Bedside telemetry showing normal sinus rhythm with first-degree heart block heart rate 86 BPM. The patient is tolerating her breakfast and denies any complaints of nausea at this time. Atrial and ventricular epicardial pacemaker wires remained in place and grounded. She has been afebrile the last 24 hours. The patient reports that she has ambulated in her room and out to the nurses station with assistance from nursing staff and has been getting in the shower the last 2 nights. Objective - Vital Signs Vital signs: Vital Signs Temp 98.1 F 01/06/21 08:00 Pulse 92 01/06/21 08:00 Resp 20 01/06/21 08:00 BP 132/65 01/06/21 08:00 Pulse Ox 95 01/06/21 08:00 Intake & Output 01/05/21 01/06/21 01/06/21 18:59 06:59 18:59 Intake Total 400 150 Output Total 805 426 85 Balance -405 -426 65 Weight 61.9 kg 63 kg Intake: Oral 400 150 Hemodialysis 0 Output: Urine 805 425 85 Stool 1 Other: Voiding Method Indwelling Catheter Indwelling Catheter # Bowel Movements 1 1 ABP, PAP, CO, CI - Last Documented Arterial Blood Pressure 194/64 Pulmonary Artery Pressure 12/5 Cardiac Output 4.2 Cardiac Index 2.6 - Constitutional General appearance: Present: average body habitus, cooperative, no acute distress - EENT Eyes: Present: normal appearance. Absent: scleral icterus ENT: Present: hearing grossly normal - Neck Details: Neck is supple, no JVD. No lymphadenopathy. - Respiratory Details: Lung sounds are essentially clear throughout, diminished bilateral bases. No wheezes, rhonchi or crackles. Respirations are symmetrical and nonlabored. Oxygen saturation are 93% on 2 L nasal cannula. Achieving 500 mL on her incentive spirometry with much encouragement. - Cardiovascular Details: Regular rhythm and rate. S1 and S2 present, negative for S3, gallop or murmur. Sternum is stable. Bedside telemetry showing normal sinus rhythm with first- degree heart block, heart rate 86 BPM. Heart hugger is in place and she is demonstrating appropriate use. Atrial and ventricular epicardial pacemaker wires in place and grounded. Knee-high DARBY hose and sequential compression devices in place to bilateral lower extremities. - Gastrointestinal Gastrointestinal Comment(s): Abdomen is soft, nontender and nondistended. Active bowel sounds present in all 4 quadrants. No guarding or rigidity. No organomegaly appreciated. Bowel movement this a.m. Tolerating oral intake. - Genitourinary Genitourinary Comment(s): Acevedo catheter for accurate I&O. Draining clear yellow urine with 305 mL output in the last 8 hours. Right groin hemodialysis catheter remains in place. - Integumentary Integumentary Comment(s): Skin is warm and dry. No clubbing or cyanosis is present. Midline sternal incision is clean, dry and approximated. No drainage or redness is present. Right lower extremity EVH site is clean, dry and approximated. No drainage or redness is present. - Neurologic Neurologic: Present: CNII-XII intact. Absent: focal deficits - Musculoskeletal Musculoskeletal: Present: gait normal, generalized weakness, strength equal bilaterally - Psychiatric Psychiatric: Present: A&O x's 3, appropriate affect, intact judgment & insight - Allied health notes Allied health notes reviewed: nursing - Labs CBC & Chem 7: 01/06/21 03:48 01/06/21 03:48 Labs: Abnormal Lab Results - Last 24 Hours (Table) 01/05/21 01/05/21 01/05/21 Range/Units 12:12 17:11 20:41 WBC (3.8-10.6) k/uL RBC (3.80-5.40) m/uL Hgb (11.4-16.0) gm/dL Hct (34.0-46.0) % RDW (11.5-15.5) % Plt Count (150-450) k/uL Neutrophils # (1.3-7.7) k/uL Lymphocytes # (1.0-4.8) k/uL Monocytes # (0-1.0) k/uL BUN (7-17) mg/dL Creatinine (0.52-1.04) mg/dL Glucose (74-99) mg/dL POC Glucose (mg/dL) 141 H 183 H 181 H (75-99) mg/dL Calcium (8.4-10.2) mg/dL Total Bilirubin (0.2-1.3) mg/dL AST (14-36) U/L ALT (4-34) U/L Alkaline Phosphatase (38-126) U/L Total Protein (6.3-8.2) g/dL Albumin (3.5-5.0) g/dL 01/05/21 01/06/21 01/06/21 Range/Units 21:57 03:48 03:48 WBC 15.6 H (3.8-10.6) k/uL RBC 2.94 L (3.80-5.40) m/uL Hgb 9.3 L (11.4-16.0) gm/dL Hct 28.0 L (34.0-46.0) % RDW 17.5 H (11.5-15.5) % Plt Count 120 L (150-450) k/uL Neutrophils # 13.5 H (1.3-7.7) k/uL Lymphocytes # 0.4 L (1.0-4.8) k/uL Monocytes # 1.2 H (0-1.0) k/uL BUN 50 H (7-17) mg/dL Creatinine 1.87 H (0.52-1.04) mg/dL Glucose 118 H (74-99) mg/dL POC Glucose (mg/dL) 127 H (75-99) mg/dL Calcium 8.3 L (8.4-10.2) mg/dL Total Bilirubin 2.1 H (0.2-1.3) mg/dL AST 84 H (14-36) U/L ALT 268 H (4-34) U/L Alkaline Phosphatase 176 H (38-126) U/L Total Protein 5.1 L (6.3-8.2) g/dL Albumin 2.7 L (3.5-5.0) g/dL 01/06/21 Range/Units 06:48 WBC (3.8-10.6) k/uL RBC (3.80-5.40) m/uL Hgb (11.4-16.0) gm/dL Hct (34.0-46.0) % RDW (11.5-15.5) % Plt Count (150-450) k/uL Neutrophils # (1.3-7.7) k/uL Lymphocytes # (1.0-4.8) k/uL Monocytes # (0-1.0) k/uL BUN (7-17) mg/dL Creatinine (0.52-1.04) mg/dL Glucose (74-99) mg/dL POC Glucose (mg/dL) 122 H (75-99) mg/dL Calcium (8.4-10.2) mg/dL Total Bilirubin (0.2-1.3) mg/dL AST (14-36) U/L ALT (4-34) U/L Alkaline Phosphatase (38-126) U/L Total Protein (6.3-8.2) g/dL Albumin (3.5-5.0) g/dL - Imaging and Cardiology Chest x-ray: report reviewed, image reviewed Assessment and Plan Assessment: 1. Severe bicuspid aortic valve stenosis, status post aortic valve replacement with a #21 mm Jackson Inspiris bioprosthetic aortic valve 2. Single-vessel coronary artery disease, status post coronary artery bypass grafting 1 with a reverse saphenous vein graft aorta to the right coronary artery 3. History of hypertension 4. History of hyperlipidemia 5. History of hypothyroid 6. 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 Right internal carotid artery stenosis 50-79% per carotid duplex 8. Remote history of tobacco abuse 9. Preoperative elevation of her AST and ALT 10. Degenerative arthritis with chronic back pain 11. Family history of colon cancer 12. Postoperative acute blood loss anemia, expected secondary to hemodilution and cardiopulmonary bypass 13. Hypotension requiring pressor use 14. Acute kidney injury secondary to hypoperfusion requiring initiation of dialysis 15. Shock liver secondary to hypoperfusion 16. Lactic acidosis secondary to hypoperfusion 17. Hypoxic respiratory failure requiring BiPAP 18. Thrombocytopenia 19. A. fib with RVR, known common occurrence after open heart surgery, status post exclusion of the left atrial appendage 20. Coagulopathy with DIC 21. Left pleural effusion, status post thoracentesis with 1.5 L of thin serosanguineous drainage drained Plan: 1. Continue low-dose aspirin, and beta kiki. Will increase beta kiki as tolerated, currently on metoprolol tartrate 25 mg by mouth twice a day. 2. Continue to hold Plavix. Platelets continue to trend up currently 120 today. 3. Wean O2 as tolerated. Encourage incentive spirometry use 10 times every hour while awake. Bronchodilators per pulmonary/critical care medicine. 4. Increase activity as tolerated, up to chair for meals, ambulate as tolerated. PT/OT/cardiac rehab following. 5. GI/DVT prophylaxis 6. Will monitor daily labs and chest x-rays. Electrolyte replacement per protocol. 7. Pain control current when necessary orders. Continue to hold Narcotics due to the patient's feeling tired. 8. Insulin management per primary care service. Patient is not diabetic, hemoglobin A1c 5.7% 9. Continue Acevedo for accurate I's and O's. Continue to record strict accurate intake and output. Daily weights. 10. Nephrology continues to follow, hemodialysis recommendations and Lasix per nephrology management. Per nephrology the patient will undergo hemodialysis today and potentially remove the right groin dialysis catheter tomorrow 01/06/2021. 11. Keep epicardial pacemaker wires in place and grounded. 12. Continue to encourage nutrition, continue ensure supplements. 13. Transfer to third floor cardiac stepdown unit when bed available. 14. Right groin dialysis catheter removed without incident. 15. Lasix 40 mg IV 1 now and potassium chloride 20 mEq by mouth 2 doses 2 hours apart now. 16. More recommendations to follow based on patient's progress. Time with Patient: Greater than 30
[2021-01-06] MEDS: CLOPIDOGREL 75 MG TAB PO SCH (12:13)
--- NOTE | 2021-01-06 13:12 | P.PN ---
Subjective Progress Note Date: 01/06/21 Principal diagnosis: Aortic valve replacement and CABG 1 vessel postoperative day #11 2020 the patient is being seen for a follow-up. Awake and alert, lethargic. Response to the moving all 4 extremities without any limitation. She remains on BiPAP at a pressure of 12/5 with an FiO2 of 50%. Generating a tidal volumes between 350 and 400 with a respiratory rate in the mid 20s. Abdomen is ventilation is around 8 L per minute. The patient has the chest tube still in place both the right pleural and mediastinal chest tube. The output has been 2 40 mL overnight over the past 12 hours and output is still bloody. She made minimal amount of urine output probably in the order of 50 mL all night. Hemodynamically stable. Off Agustín-Synephrine. She converted into sinus rhythm with a first-degree AV block. Chest x-ray showing some mild four-vessel congestion and all of the chest tubes are in place. Hemoglobin is at 8.5 with a platelet count of 25 and a coagulation profile shows an INR of 2.3 with a PT of 22.3 and a PTT of 32, lactic acid level is down to 1.8, BUN is 41 with a creatinine of 2.5 and a sodium of 136 with a potassium of 3.9. Glucose is 125. Shock liver is gradually improving and the AST is down to 4112 and ALT is down to 2017. She underwent hemodialysis yesterday without any major complications. He dialyzes catheter is still present in her right groin. No signs of any bleeding. No other issues for now. She is arousable. She follows commands and answers questions appropriately. No other significant events overnight. Note that her follow-up digoxin level was down to 2.1. She got transfused with platelets yesterday. Patient was reevaluated today on 01/01/2021, patient remains in the ICU, fully awake, alert, in no distress. Patient is on 3 L nasal cannula. She denies any shortness of breath, continues to have a right sided chest tube in place, she has mostly symptoms of surgical pain, and intermittent episodes of nausea. Patient is off pressors, she is in sinus rhythm with first-degree AV block, remains on IV Zosyn. Her labs were reviewed, platelets remained low at 63,000 BUN is 52 creatinine 3.31, INR is 1.8. Liver enzymes remain elevated. Urine output about 20 mL per hour overnight. She received dialysis yesterday for the third time. Chest x-ray today showed a left-sided pneumothorax and good sized left-sided pleural effusion, discussed this issue with thoracic surgery planned to observe for now, no plans for thoracentesis or chest tube placement. I prefer. Chest tube placement specially with her platelets being as low. Patient was reevaluated today on 01/02/2021, remains in the ICU, she is on 3 L n [place] cannula, patient received hemodialysis yesterday, and 2.2 L were removed. Today her chest x-ray continues to show left lower lobe atelectasis and pleural effusion, she continues to have a small left-sided apical pneumothorax, her platelets are down to 62,000. Liver function is at this remain elevated. But seems to be trending down. Her IV fluids at KVO. Patient is in atrial fibrillation with controlled rate. Right-sided chest tube remains in place. Patient is not in any distress, again she is on 3 L nasal cannula. WBC count today is 18.5 hemoglobin is 9.9 her electrolytes are normal renal profile showed a BUN of 61 creatinine of 3.37. Patient was reevaluated today on 01/03/2021, remains in the ICU, on few liters nasal cannula, patient is feeling better, breathing easier, however her chest x- ray clearly showed a good sized left-sided pleural effusion worsening compared to previous x-rays. Patient also had a left-sided apical pneumothorax which is not clearly seen mostly because of the worsening pleural effusion noted on the left side. Her WBC count today is 15.5 hemoglobin is 10.3 platelets are up to 84,000. PT and PTT are normal. Lites are normal. Renal profile is worse with 85 BUN and creatinine 4.11. Patient is on hemodialysis. After reviewing the chest x-ray, discussed the patient's condition with the thoracic surgery/Dr. Gaffney, and recommended left-sided thoracentesis which was done, and I was able to drain 1.5 L of gross blood from the left pleural space. After the procedure he can clearly see the left apical pneumothorax which was present all along. And it is not a complication related to the thoracentesis. Reevaluated today on 01/04/2021, patient remains in the ICU, resting, she is extremely tired and exhausted, weak, she is on 4 L nasal cannula, and her O2 saturation is in the mid 90s. Chest x-ray is basically about the same, she seems to be having a stable left apical pneumothorax, and small amount of left pleural effusion seems to be rebuilding again compared to the chest x-ray that was done right after thoracentesis yesterday. Clinically however the patient is about the same. WBC count today 17.5 hemoglobin is 10.8 electrodes are normal renal profile remains poor with a BUN of 103 creatinine 4.0. Liver enzymes remain elevated but they seem to be trending down, AST is 208 ALT is 495 and PHOSPHATASE IS 254 Patient was reevaluated today on 01/05/2021, remains in the ICU, sitting at a bedside chair, in no distress, on 2 L nasal cannula, O2 saturation is in in the low 90s. Labs this morning were basically unremarkable, hemoglobin is 10.4. Platelets are 114. Electrolytes are normal. Creatinine is 3.43. Liver enzymes are trending down. Femoral dialysis catheter remains in place. Chest x-ray is showing a small left pleural effusion, could not see the left-sided pneumothorax, but it seems to be possibly very apical. Patient was reevaluated today on 01/06/2021, remains in the ICU, sitting at a bedside chair, in no distress patient O2 sat is 94%, she is on 2.5 L nasal cannula. Reviewed her chest x-ray, showed mostly small bilateral pleural effusions, left lower lobe atelectasis, could not see any pneumothorax on this x-ray today. WBC count is 15.6 hemoglobin is 9.3. Electrolytes are normal BUN is 50 creatinine is 1.87, liver enzymes are improving. AST is 84 ALT is 268 and alkaline phosphatase is 176 Objective - Vital Signs Vital signs: Vital Signs Temp 97.6 F 01/06/21 12:00 Pulse 78 01/06/21 12:00 Resp 20 01/06/21 12:00 BP 121/60 01/06/21 12:00 Pulse Ox 94 L 01/06/21 12:00 Intake & Output 01/05/21 01/06/21 01/06/21 18:59 06:59 18:59 Intake Total 400 250 Output Total 463 191 757 Balance -405 -426 -505 Weight 61.9 kg 63 kg Intake: Oral 400 250 Hemodialysis 0 Output: Urine 805 425 755 Stool 1 2 Other: Voiding Method Indwelling Catheter Indwelling Catheter Indwelling Catheter # Bowel Movements 1 1 ABP, PAP, CO, CI - Last Documented Arterial Blood Pressure 194/64 Pulmonary Artery Pressure 12/5 Cardiac Output 4.2 Cardiac Index 2.6 - Exam Physical Exam: Revealed a 65-year-old female in no distress, on 2.5 L nasal cannula. Head: Atraumatic, normocephalic. HEENT:[Neck is supple.] [No neck masses.] [No thyromegaly.] [No JVD.] PERRLA, EOMI, nonicteric. Chest: [Symmetrical chest expansion, diminished breath sounds at the bases bilaterally. . Cardiac Exam: [Normal S1 and S2, no S3 gallop, no murmur.] Abdomen: [Soft, nontender, no megaly, no rebound, no guarding, normal bowel sounds.] Extremities: [No clubbing, no edema, no cyanosis.] Neurological Exam: [No focal neurologic deficit.] Alert and oriented 3. Patient is noted to be generally weak. Psychiatric: Normal mood, affect and normal mental status examination. Skin: No rashes. - Labs CBC & Chem 7: 01/06/21 03:48 01/06/21 03:48 Labs: Abnormal Lab Results - Last 24 Hours (Table) 01/05/21 01/05/21 01/05/21 Range/Units 17:11 20:41 21:57 WBC (3.8-10.6) k/uL RBC (3.80-5.40) m/uL Hgb (11.4-16.0) gm/dL Hct (34.0-46.0) % RDW (11.5-15.5) % Plt Count (150-450) k/uL Neutrophils # (1.3-7.7) k/uL Lymphocytes # (1.0-4.8) k/uL Monocytes # (0-1.0) k/uL BUN (7-17) mg/dL Creatinine (0.52-1.04) mg/dL Glucose (74-99) mg/dL POC Glucose (mg/dL) 183 H 181 H 127 H (75-99) mg/dL Calcium (8.4-10.2) mg/dL Total Bilirubin (0.2-1.3) mg/dL AST (14-36) U/L ALT (4-34) U/L Alkaline Phosphatase (38-126) U/L Total Protein (6.3-8.2) g/dL Albumin (3.5-5.0) g/dL 01/06/21 01/06/21 01/06/21 Range/Units 03:48 03:48 06:48 WBC 15.6 H (3.8-10.6) k/uL RBC 2.94 L (3.80-5.40) m/uL Hgb 9.3 L (11.4-16.0) gm/dL Hct 28.0 L (34.0-46.0) % RDW 17.5 H (11.5-15.5) % Plt Count 120 L (150-450) k/uL Neutrophils # 13.5 H (1.3-7.7) k/uL Lymphocytes # 0.4 L (1.0-4.8) k/uL Monocytes # 1.2 H (0-1.0) k/uL BUN 50 H (7-17) mg/dL Creatinine 1.87 H (0.52-1.04) mg/dL Glucose 118 H (74-99) mg/dL POC Glucose (mg/dL) 122 H (75-99) mg/dL Calcium 8.3 L (8.4-10.2) mg/dL Total Bilirubin 2.1 H (0.2-1.3) mg/dL AST 84 H (14-36) U/L ALT 268 H (4-34) U/L Alkaline Phosphatase 176 H (38-126) U/L Total Protein 5.1 L (6.3-8.2) g/dL Albumin 2.7 L (3.5-5.0) g/dL 01/06/21 Range/Units 11:12 WBC (3.8-10.6) k/uL RBC (3.80-5.40) m/uL Hgb (11.4-16.0) gm/dL Hct (34.0-46.0) % RDW (11.5-15.5) % Plt Count (150-450) k/uL Neutrophils # (1.3-7.7) k/uL Lymphocytes # (1.0-4.8) k/uL Monocytes # (0-1.0) k/uL BUN (7-17) mg/dL Creatinine (0.52-1.04) mg/dL Glucose (74-99) mg/dL POC Glucose (mg/dL) 105 H (75-99) mg/dL Calcium (8.4-10.2) mg/dL Total Bilirubin (0.2-1.3) mg/dL AST (14-36) U/L ALT (4-34) U/L Alkaline Phosphatase (38-126) U/L Total Protein (6.3-8.2) g/dL Albumin (3.5-5.0) g/dL Assessment and Plan Assessment: Impression: Status post aortic valve replacement and single-vessel bypass surgery postoperative day #11 Shock liver secondary to cardiogenic shock and severe metabolic acidosis secondary to cardiogenic shock, resolving. Coagulopathy secondary to shocked liver, improving steadily over the last few days. Hyperlipidemia. Hypothyroidism. History of CVA. Episodes of atrial flutter and RVR, presently in normal sinus rhythm. Spontaneous Left-sided pneumothorax, exact etiology is not clear, resolved Acute kidney injury and renal failure secondary to cardiogenic shock/cardiorenal, patient has been on hemodialysis 3, being followed by nephro logy. Thrombocytopenia, improving. Postoperative blood loss, expected Previous history of tobacco dependence and moderate COPD, FEV1 of 56% History of CVA to right eye in 2004 and followed by TIA. Left sided hemothorax, status post left-sided thoracentesis on 01/03/2021, and 1.5 L of gross blood removed from the left pleural space. Recommendation: Continue present supportive care measures. Continue beta blockers. Titrate oxygen accordingly. Continue bronchodilators. Continue to monitor liver enzymes. Continue to monitor chest x-ray on a daily basis. Continue insulin Continue GI and DVT prophylaxis. We'll continue to follow. Time with Patient: Less than 30
--- NOTE | 2021-01-06 13:32 | PN ---
PROGRESS NOTE Monique is a 65-year-old lady who was admitted to the hospital following aortic valve replacement and coronary artery disease, status post coronary artery bypass grafting. She is still in the ICU. Remains in sinus rhythm. Has made excellent progress. Her renal functions are improving. Creatinine is 1.8. AST, ALT are improving at 268 and 176. PHYSICAL EXAMINATION: Heart rate is 78 beats per minute, blood pressure is 121/62, respiratory is 18. Chest exam reveals good air entry bilaterally. Heart exam reveals first and second heart sounds. No gallop. Examination of extremities did not reveal any edema. Peripheral pulses are palpable. LABORATORY DATA: Show a hemoglobin of 9.3. Potassium is 3.7, creatinine is 1.8. ASSESSMENT: 1. Coronary artery disease, status post coronary artery bypass graft. 2. Paroxysmal atrial fibrillation. PLAN: The patient is not a candidate for anticoagulation because of severe thrombocytopenia that she had. She will continue aspirin, Plavix, Apresoline, and Lopressor that she is currently on. MMODL / IJN: [id number] /
--- NOTE | 2021-01-06 13:40 | P.PN ---
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 Last hemodialysis yesterday for alleviated BUN. Good urine output today. Akash catheter has been removed today. Objective - Vital Signs Vital signs: Vital Signs Temp 97.6 F 01/06/21 12:00 Pulse 78 01/06/21 12:00 Resp 20 01/06/21 12:00 BP 121/60 01/06/21 12:00 Pulse Ox 94 L 01/06/21 12:00 Intake & Output 01/05/21 01/06/21 01/06/21 18:59 06:59 18:59 Intake Total 400 250 Output Total 805 426 757 Balance -405 -426 -787 Weight 61.9 kg 63 kg Intake: Oral 400 250 Hemodialysis 0 Output: Urine 805 425 755 Stool 1 2 Other: Voiding Method Indwelling Catheter Indwelling Catheter Indwelling Catheter # Bowel Movements 1 1 ABP, PAP, CO, CI - Last Documented Arterial Blood Pressure 194/64 Pulmonary Artery Pressure 12/5 Cardiac Output 4.2 Cardiac Index 2.6 - Exam No acute distress. S1-S2 heard Decreased breath sounds Acevedo catheter Trace edema - Labs CBC & Chem 7: 01/06/21 03:48 01/06/21 03:48 Labs: Abnormal Lab Results - Last 24 Hours (Table) 01/05/21 01/05/21 01/05/21 Range/Units 17:11 20:41 21:57 WBC (3.8-10.6) k/uL RBC (3.80-5.40) m/uL Hgb (11.4-16.0) gm/dL Hct (34.0-46.0) % RDW (11.5-15.5) % Plt Count (150-450) k/uL Neutrophils # (1.3-7.7) k/uL Lymphocytes # (1.0-4.8) k/uL Monocytes # (0-1.0) k/uL BUN (7-17) mg/dL Creatinine (0.52-1.04) mg/dL Glucose (74-99) mg/dL POC Glucose (mg/dL) 183 H 181 H 127 H (75-99) mg/dL Calcium (8.4-10.2) mg/dL Total Bilirubin (0.2-1.3) mg/dL AST (14-36) U/L ALT (4-34) U/L Alkaline Phosphatase (38-126) U/L Total Protein (6.3-8.2) g/dL Albumin (3.5-5.0) g/dL 01/06/21 01/06/21 01/06/21 Range/Units 03:48 03:48 06:48 WBC 15.6 H (3.8-10.6) k/uL RBC 2.94 L (3.80-5.40) m/uL Hgb 9.3 L (11.4-16.0) gm/dL Hct 28.0 L (34.0-46.0) % RDW 17.5 H (11.5-15.5) % Plt Count 120 L (150-450) k/uL Neutrophils # 13.5 H (1.3-7.7) k/uL Lymphocytes # 0.4 L (1.0-4.8) k/uL Monocytes # 1.2 H (0-1.0) k/uL BUN 50 H (7-17) mg/dL Creatinine 1.87 H (0.52-1.04) mg/dL Glucose 118 H (74-99) mg/dL POC Glucose (mg/dL) 122 H (75-99) mg/dL Calcium 8.3 L (8.4-10.2) mg/dL Total Bilirubin 2.1 H (0.2-1.3) mg/dL AST 84 H (14-36) U/L ALT 268 H (4-34) U/L Alkaline Phosphatase 176 H (38-126) U/L Total Protein 5.1 L (6.3-8.2) g/dL Albumin 2.7 L (3.5-5.0) g/dL 01/06/21 Range/Units 11:12 WBC (3.8-10.6) k/uL RBC (3.80-5.40) m/uL Hgb (11.4-16.0) gm/dL Hct (34.0-46.0) % RDW (11.5-15.5) % Plt Count (150-450) k/uL Neutrophils # (1.3-7.7) k/uL Lymphocytes # (1.0-4.8) k/uL Monocytes # (0-1.0) k/uL BUN (7-17) mg/dL Creatinine (0.52-1.04) mg/dL Glucose (74-99) mg/dL POC Glucose (mg/dL) 105 H (75-99) mg/dL Calcium (8.4-10.2) mg/dL Total Bilirubin (0.2-1.3) mg/dL AST (14-36) U/L ALT (4-34) U/L Alkaline Phosphatase (38-126) U/L Total Protein (6.3-8.2) g/dL Albumin (3.5-5.0) g/dL Assessment and Plan Assessment: #1 nonoliguric acute kidney injury secondary to ischemic ATN 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 Last hemodialysis for 01/05/2021. This line creatinine 1.0 MG per DL. #2 CAD status post CABG and aortic valve replacement on 12/26/2020 #3 volume overload with bilateral pleural effusions #4 acute on chronic diastolic CHF #5 anemia multifactorial #6 hypokalemia with metabolic alkalosis Plan: #1 renal function improving. Good urine output. #2 add Lasix 40 mg IV twice a day. Replace KCl. #3 avoid nephrotoxic agents and hypotensive episodes.
[2021-01-06 17:12] LABS: Glucose,Whole Blood 124 mg/dL (75-99)
[2021-01-06 20:14] LABS: Glucose,Whole Blood 112 mg/dL (75-99)
[2021-01-06] MEDS: LEVOTHYROXINE 25 MCG TAB PO SCH (20:18)
[2021-01-06] MEDS: SENNOSIDES-DOCUSATE SODIUM 1 EACH TAB PO SCH (20:18)
[2021-01-06] MEDS: SERTRALINE 25 MG TAB PO SCH (20:19)
[2021-01-06] MEDS ORDERED: INSULIN ASPART (NovoLOG) 100 UNIT/ML VIAL SQ SCH (21:07)
--- NOTE | 2021-01-06 21:48 | P.PN ---
Subjective Progress Note Date: 01/06/21 HISTORY OF PRESENT ILLNESS This is a 65-year-old female patient of Dr. 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 Patient underwent echocardiogram that revealed an ejection fraction of 55-60% with LVH, mild to moderate MR, bicuspid severely calcified aortic valve with moderate aortic regurgitation, moderate tricuspid regurgitation. The patient underwent cardiac julián terizationTEE for further evaluation. The cath showed right coronary artery stenosis in the order of 85% without any significant coronary artery disease. The transthoracic echocardiogram showed severe aortic stenosis. Patient underwent aortic valve replacement and one-vessel CABG with reverse saphenous vein graft off the aorta to the right coronary artery. Patient was admitted into the intensive care unit and was successfully extubated. She is seen today in the intensive care unit. She is up in a recliner. [place] in place, mediastinal and right-sided chest tubes in place, Acevedo catheter in place. Patient denies having any chest pain. She states she is not feeling too bad today. She has a little nausea. No abdominal pain. She states she slept okay last night. She has been afebrile, heart rate 71, blood pressure 119/52, pulse ox 90% on 5 L nasal cannula. Blood work this morning reveals W BC 15.2, hemoglobin 8, platelet count 168. Electrolytes normal, BUN 19 and creatinine 0.78. Blood sugars running between 124 and 141. AST 167. Chest x-ray reveals small residual right apical pneumothorax may be present. Chest tubes pulled back slightly from comparison. [place] catheter is somewhat peripheral and the right main pulmonary artery region. Cardiomegaly. Small left pleural effusion. 12/28: Patient remains in the intensive care unit. Patient has become hypoten sive with low urine output, elevated lactic acid, anemia, liver enzyme elevation and generalized anasarca. Patient is been started on dopamine, Primacor and is status post albumin and is status post 1 unit packed RBCs this morning. Urine output is improving. She is on BiPAP. Patient complains of generalized not feeling well and shortness of breath. Repeat CXR reports slight increase in mild left hilar and left basilar edema and/or atelectasis. Small pleural effusion. WBC 18.7, hemoglobin initially 6.8 and repeat a 0.1. Platelet count 124. INR 2.8. Electrolytes normal. BUN 32 and creatinine 1.53. Blood sugars running in the 140-170s. Total bilirubin 1.9, AST 1140, ALT 662, alkaline phosphatase 30. Amylase and lipase normal. 12/29: She remains in the intensive care unit. She has not been intubated. Her overall condition continues to decline and she is scheduled for dialysis catheter placement to start hemodialysis. She has had virtually no urine output despite being on Lasix drip patient also went into atrial fibrillation and started on digoxin. She remains with right pleural and mediastinal chest tubes are in place. Additional new diagnoses include A. fib with RVR, ischemic bowel suspected, bicytopenia. Patient is awake. She is complaining of chest discomfort. She is not have increased edema. Her temperature has been low down to 96.5. Heart rate 114, blood pressure 122/54, pulse ox 90%. WBC 14.6, hemoglobin 6, platelet count 26. INR 3.3. Electrolytes normal. BUN 53 and creatinine 2.77. Calcium 7.8. Ionized calcium 3.8. Total bilirubin 3, AST 11,442, ALT 3572, alkaline phosphatase 41. She has been ordered for plasma, platelets and RBC transfusions. 12/30: Patient is currently on BiPAP. She had dialysis catheter placed by vascular surgeon yesterday and underwent her first hemodialysis with removal of 3 L. She has had no urine output overnight. She remains with chest tubes in place. Acevedo catheter is in place. Repeat blood work reveals W BC 13.3, hemoglobin 9, platelet count 24. She is scheduled for platelet transfusion today. INR 2.6. BUN 33 creatinine 2.18. Blood sugars are running between 110 and 138. Magnesium 2.2. Potassium 4.3. Total bilirubin 5.0, AST 8066, ALT 2707, alkaline phosphatase 74. Digoxin level II.9. Patient not currently on digoxin. property assessment monitor sinus rhythm with a bundle branch block. She has been afebrile, heart rate in the 80s, blood pressure 138/52, pulse ox 93%. Cultures no growth at 24 hours. 12/31: Patient is scheduled for repeat dialysis today. She has had 15 mL output overnight of urine. Patient complains of nausea. Reglan changed to scheduled. She states she's had some ice chips. Patient is awake and alert but thinks it's June 2021. She did have a bowel movement this morning. Patient has been afebrile, heart rate in the 80s and 90s, blood pressure 145/72, pulse ox 97% on BiPAP. Repeat blood work reveals WBC 9.7, hemoglobin 8.5, platelet count 25. No plan for platelet transfusion today. INR is 2.3. Sodium 136 otherwise electrolytes are normal. BUN 41 and creatinine 2.58. Ionized calcium 4.1, total bilirubin 7.6, AST 4112, ALT 2017, alkaline phosphatase 94. Blood sugars are running between 96 and 136. PICC line is ordered for tomorrow. 01/01: Patient remains in the intensive care unit. She is now off BiPAP. Patient is starting to make urine at 15-20 mL per hour. Liver function tests are improving. She states that she is feeling a little nausea that comes and goes. She does have Zofran available and Reglan has been changed to when necess patrice. Pulse ox 93% on 3 L nasal cannula, blood pressure 163/75, heart rate 80s, afebrile. WBC 13.7, hemoglobin 9.1, platelet count 33. INR 1.8. Electrolytes normal. BUN 52 and creatinine 3.31. Blood sugars are running between 123 and 143. Ionized calcium 4.4, total bilirubin 11.1, AST 2123, ALT 1484, alkaline phosphatase 128. Chest x-ray reveals diminished lung volumes suspect worsening pulmonary vascular congestion. Increased moderate left pleural effusion with adjacent atelectasis and/or consolidation. Fine linear density projecting across the left apex suspected artifact rather than small pneumothorax. Ultrasound of the chest revealed left pleural effusion pocket 10.4 cm. Patient is status post calcium gluconate. Metoprolol increased to 25 mg twice daily. Patient is off antibiotics. 01/02: Patient is seen today sitting in recliner and her ICU room. She remains with [address] and Acevedo catheter. She has improved urine output. She complains of nausea. Last bowel movement was on December 31. She has been afebrile, heart rate in the 60s, blood pressure 140/74, pulse ox 99% on 3 L nasal cannula. Repeat blood work reveals WBC 18.5, hemoglobin 9.9, platelet count 62. INR 1.4. Sodium 136, BUN 61 and creatinine 3.37. Blood sugars running between 115 and 155. Total bilirubin 11.1, AST 1204, ALT 1176, alkaline phosphatase 179. Repeat chest x-ray reveals continued pulmonary vascular congestion and moderate left effusion with adjacent atelectasis and/or consolidation. Right-sided chest tube. No pneumothorax. Patient underwent dialysis yesterday with removal of 2.2 L. Dialysis treatment on hold for now the patient is followed closely by nephrology. 01/03: Patient remains in intensive care unit. Patient underwent left-sided thoracentesis with removal of 1.5 L. She has increased oxygen need from 3 L to 6 L with pulse ox of94%. Heart rate has been in the 70s, blood pressure 148/78. property assessment monitor sinus rhythm. 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 Patient has had good urine output with no plan for dialysis today. No plan for Lasix today. Repeat blood work today is showing improvement with white count down to 15.5, hemoglobin 10.3, platelet count 84. INR 1.2. Sodium 135, potassium 3.5, chloride 95, CO2 28, worsening renal function with BUN 85 and creatinine 4.11. Total bilirubin 6.6, AST 568, ALT 867, alkaline phosphatase 256. 01/04: Patient is seen today sitting in recliner. Nephrology is planning to hold dialysis and diuretics today. Patient states that she does not feel bad today. She continues to have nausea off and on. She has her first meal but she is lactose intolerance and this will be addressed in her orders. Repeat chest x- ray reveals diminished size of left apical pneumothorax. Worsening left lower lobe infiltrate and/or pleural effusion. She has had chest tube removed. Acevedo catheter remains in place. WBC 17.5, hemoglobin 10.8. Electrolytes normal. BUN 103 and creatinine 4. AST 208, ALT 495 and alkaline phosphatase 254. All liver function tests are improving. 01/05: The patient remains in the intensive care unit. She is seen today sitting in recliner and appears to be comfortable. Patient states she is pain-free. She denies shortness of breath. She still has Acevedo catheter in place. She states she is not feeling too bad today. Patient has been afebrile,heart rate 76, blood pressure 137/70, pulse ox 92% on 2 L nasal cannula. WBC 15.0, hemoglobin 10.4, platelet count 114. Sodium 132, potassium 3.4, chloride 94, CO2 29, P1 107, creatinine 3.43. Blood sugars running between 100 1220. Total bilirubin 3.4, AST 115, ALT 364, alkaline phosphatase 219. Patient has been seen by physical therapy and occupational therapy and recommend home with homecare. Right femoral dialysis catheter remains in place but if renal function remains stable for the next 24-48 hours, this will be discontinued per nephrology. 01/06: Patient sitting in a chair very comfortable she is not in A. fib currently, still have Acevedo catheter in, physical therapy is limited to her room at this point. Her creatinine has improved with her BUN in the 50s might not need dialysis today and decision will be made by nephrology. Her liver enzymes are significantly down compared to before on blood sugar since was start sliding scale has been running in the low 100. Pain is well controlled currently. REVIEW OF SYSTEMS Constitutional: No fever, no chills, no night sweats. No weight change. R eports generalized weakness, reports fatigue reports lethargy. No daytime sleepiness. EENT: No headache. No change in vision, no loss of vision. No loss of Hearing, no dizziness. No nasal drainage or congestion. No epistaxis. No sore throat. Lungs: Reports shortness of breath, cough, no sputum production. No wheezing. Cardiovascular: Reports chest discomfort, reports lower extremity edema. Reports generalized edema. No palpitations. No paroxysmal nocturnal dyspnea. No orthopnea. No lightheadedness or dizziness. No syncopal episodes. Abdominal: No abdominal pain. Reports intermittent nausea, denies vomiting. No diarrhea. No constipation. No bloody or tarry stools. Reports loss of appetite. Genitourinary: No dysuria, increased frequency, urgency. No urinary retention. Musculoskeletal: No myalgias. Reports muscle weakness, no gait dysfunction, no frequent falls. No back pain. No neck pain. Integumentary: No wounds, no lesions. No rash or pruritus. Neurologic: No aphasia. No facial droop. No change in mentation. No head injury. No headache. No paralysis. No paresthesia. Psychiatric: No depression. No anxiety. Endocrine: Reports abnormal blood sugars. PHYSICAL EXAMINATION Gen: This paradise 65-year-old female. She is resting in recliner, she is on nasal cannula, appears to be comfortable at rest. HEENT: Head is atraumatic, normocephalic. Pupils equal, round. Sclerae is icteric. NECK: Supple. No JVD. No lymphadenopathy. No thyromegaly. LUNGS: Diminished bilaterally. No wheezes or rhonchi. No intercostal retractio ns. HEART: Regular rate and rhythm. No murmur. ABDOMEN: Soft. Bowel sounds are present. No masses. No tenderness. Acevedo catheter in place with remy urine. EXTREMITIES: Mild generalized pedal edema. No calf tenderness. Dorsalis pedis palpable bilaterally. NEUROLOGICAL: Patient is awake, alert and oriented x3. Cranial nerves 2 through 12 are grossly intact. ASSESSMENT AND PLAN 1. Aortic valve replacement for bicuspid valve with moderate aortic regurgitation and single-vessel CABG with CVG to RCA. Patient is postop day # 11. She is off mechanical ventilation doing well so far. 2. Acute kidney injury with chronic kidney disease: Patient was treated with acute kidney failure with hemodialysis possibly secondary to hepatorenal syndrome and hypoperfusion symptoms are better so far. 3. Transaminitis secondary to hypoperfusion and shock liver, improving. C ontinue to monitor liver function tests. 4. Acute blood loss anemia, expected following surgery. Repeat transfusion today. 5. Lactic acidosis secondary to hyperperfusion, improving. 6. A. fib with RVR, paroxysmal atrial fibrillation, converted to sinus rhythm. 7. Recurrent abdominal pain with possible ischemic bowel, has improved significantly patient is having bowel movement 8. Bicytopenia with thrombocytopenia and anemia. Status post total transfusion of 5 units of platelets, 4 units of fresh frozen plasma, 4 units of packed RBCs. 9. Acute renal failure requiring dialysis. Her dialysis line might come out today deficiency doesn't need any dialysis today. 10. Hypertension. Will control currently on amlodipine 5 mg a day and hydralazine 25 mg 3 times a day and still on metoprolol titrate 25 g twice a day. 11. Hyperlipidemia. Still off statin at this point was start probably higher dose of atorvastatin. 12. History of CVA 2. No major residual 13. Hypothyroidism. Continue levothyroxine 25 g daily. 14. Recurrent depression. Continue Zoloft 25 mg at bedtime. 15. Degenerative disc disease. 16. Moderate protein calorie malnutrition due to lack of oral intake. Diet changed to lactose free. 17. GI prophylaxis. Protonix 40 mg twice daily. 18. DVT prophylaxis. Off heparin due to thrombocytopenia Objective - Vital Signs Vital signs: Vital Signs Temp 98.1 F 01/06/21 04:00 Pulse 89 01/06/21 04:00 Resp 24 01/06/21 04:00 BP 143/75 01/06/21 04:00 Pulse Ox 93 L 01/06/21 04:00 Intake & Output 01/05/21 01/05/21 01/06/21 06:59 18:59 06:59 Intake Total 100 400 Output Total 825 805 325 Balance -539 -405 -404 Weight 61.9 kg 61.9 kg 63 kg Intake: Oral 100 400 Hemodialysis 0 Output: Urine 825 805 325 Other: Voiding Method Indwelling Catheter Indwelling Catheter Indwelling Catheter # Bowel Movements 1 1 1 ABP, PAP, CO, CI - Last Documented Arterial Blood Pressure 194/64 Pulmonary Artery Pressure 12/5 Cardiac Output 4.2 Cardiac Index 2.6 - Labs CBC & Chem 7: 01/06/21 03:48 01/06/21 03:48 Labs: Abnormal Lab Results - Last 24 Hours (Table) 01/05/21 01/05/21 01/05/21 Range/Units 12:12 17:11 20:41 WBC (3.8-10.6) k/uL RBC (3.80-5.40) m/uL Hgb (11.4-16.0) gm/dL Hct (34.0-46.0) % RDW (11.5-15.5) % Plt Count (150-450) k/uL Neutrophils # (1.3-7.7) k/uL Lymphocytes # (1.0-4.8) k/uL Monocytes # (0-1.0) k/uL BUN (7-17) mg/dL Creatinine (0.52-1.04) mg/dL Glucose (74-99) mg/dL POC Glucose (mg/dL) 141 H 183 H 181 H (75-99) mg/dL Calcium (8.4-10.2) mg/dL Total Bilirubin (0.2-1.3) mg/dL AST (14-36) U/L ALT (4-34) U/L Alkaline Phosphatase (38-126) U/L Total Protein (6.3-8.2) g/dL Albumin (3.5-5.0) g/dL 01/05/21 01/06/21 01/06/21 Range/Units 21:57 03:48 03:48 WBC 15.6 H (3.8-10.6) k/uL RBC 2.94 L (3.80-5.40) m/uL Hgb 9.3 L (11.4-16.0) gm/dL Hct 28.0 L (34.0-46.0) % RDW 17.5 H (11.5-15.5) % Plt Count 120 L (150-450) k/uL Neutrophils # 13.5 H (1.3-7.7) k/uL Lymphocytes # 0.4 L (1.0-4.8) k/uL Monocytes # 1.2 H (0-1.0) k/uL BUN 50 H (7-17) mg/dL Creatinine 1.87 H (0.52-1.04) mg/dL Glucose 118 H (74-99) mg/dL POC Glucose (mg/dL) 127 H (75-99) mg/dL Calcium 8.3 L (8.4-10.2) mg/dL Total Bilirubin 2.1 H (0.2-1.3) mg/dL AST 84 H (14-36) U/L ALT 268 H (4-34) U/L Alkaline Phosphatase 176 H (38-126) U/L Total Protein 5.1 L (6.3-8.2) g/dL Albumin 2.7 L (3.5-5.0) g/dL
[2021-01-07 06:14] LABS: Glucose,Whole Blood 113 mg/dL (75-99)
[2021-01-07] MEDS: INSULIN ASPART (NovoLOG) 100 UNIT/ML VIAL SQ SCH ×4 (06:14→20:22)
[2021-01-07 07:57] LABS: Anisocytosis Slight; HCT 29.1 % (34.0-46.0); HGB 9.4 gm/dL (11.4-16.0); Hypochromasia Slight; MCH 31.2 pg (25.0-35.0); MCHC 32.3 g/dL (31.0-37.0); MCV 96.4 fL (80.0-100.0); Macrocytosis Slight; Mean Platelet Volume 9.3; Platelet Count 165 k/uL (150-450); RBC 3.01 m/uL (3.80-5.40); RDW 16.9 % (11.5-15.5); WBC 19.4 k/uL (3.8-10.6)
[2021-01-07] MEDS: IPRATROPIUM-ALBUTEROL 3 ML NEB INHALATION SCH ×4 (07:58→19:38)
[2021-01-07 08:13] LABS: Albumin 3.1 g/dL (3.5-5.0); Calcium 8.8 mg/dL (8.4-10.2); Total Bilirubin 2.4 mg/dL (0.2-1.3); Total Protein 5.8 g/dL (6.3-8.2)
[2021-01-07] MEDS: PANTOPRAZOLE 40 MG/10 ML VIAL IVP SCH ×2 (08:50→21:12)
[2021-01-07] MEDS: amLODIPine 5 MG TAB PO SCH (08:51)
[2021-01-07] MEDS: hydrALAZINE HCL 25 MG TAB PO SCH ×3 (08:51→22:50)
[2021-01-07] MEDS: ASPIRIN 81 MG PO SCH (08:51)
[2021-01-07] MEDS: CLOPIDOGREL 75 MG TAB PO SCH (08:51)
[2021-01-07] MEDS: ACETAMINOPHEN TAB 325 MG TAB PO PRN ×2 (08:51→15:56)
[2021-01-07] MEDS: METOPROLOL TARTRATE 25 MG TAB PO SCH ×2 (08:51→21:11)
--- NOTE | 2021-01-07 08:51 | XR ---
EXAMINATION TYPE: XR chest 1V portable DATE OF EXAM: 01/07/2021 COMPARISON: 01/06/2021 HISTORY: Postoperative cardiac surgery. TECHNIQUE: Single frontal view of the chest is obtained. FINDINGS: There is persistent moderate left pleural effusion with accompanying opacity, similar to p rior study. There is mild right basilar atelectasis. No definite new opacity or pneumothorax seen. St able cardiomediastinal silhouette and overlying cardiothoracic postsurgical changes. The osseous st ructures are unchanged. IMPRESSION: Persistent moderate left pleural effusion.
[2021-01-07] MEDS: ONDANSETRON 4 MG/2 ML VIAL IVP PRN (08:52)
[2021-01-07] MEDS ORDERED: ALBUMIN HUMAN 5% 250 ML in EMPTY BAG 1 BAG IVPB ONE (09:10)
[2021-01-07] MEDS ORDERED: CEFEPIME 1 GM in SODIUM CHLORIDE 0.9% 50 ML IVPB ONE (09:15)
--- NOTE | 2021-01-07 09:31 | P.PN ---
Subjective Progress Note Date: 01/07/21 Principal diagnosis: Severe bicuspid aortic valve stenosis, single-vessel coronary artery disease. 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 POD #12 aortic valve replacement with a #21 mm Jackson Inspiris bioprosthetic aortic valve. Coronary artery bypass grafting 1 with a reverse saphenous vein graft off the aorta to the right coronary artery. Clip ligation of left atrial appendage with a 35 mm Atriclip. Intraoperative transesophageal echocardiogram. Postoperative acute blood loss anemia, expected due to hemodilution and cardiop ulmonary bypass. Hypotension requiring pressor use, resolved. Acute kidney injury secondary to hypoperfusion requiring initiation of dialysis. Shock liver secondary to hypoperfusion, improving. Lactic acidosis secondary to hypoperfusion, resolved. Hypoxic respiratory failure requiring BiPAP, currently on 4 L oxygen nasal cannula. Thrombocytopenia, improving. A. fib with RVR, known common occurrence after open heart surgery, currently sinus rhythm. Coagulopathy with DIC, improving. Left pleural effusion, requiring left thoracentesis. The patient was seen in follow-up today 01/07/2021 at her bedside on the cardiac stepdown unit. Currently the patient is sitting up to the bedside chair, is awake, alert and oriented 3 and is in no acute distress. She denies any complaints of pain or shortness of breath at this time. Denies any complaints of nausea. She states that she feels better on a daily basis. She remains hemodynamically stable and is currently on no on topical pressor support. Oxygen saturations are 96% on 2 L nasal cannula and she is achieving 500 mL on her incentive spirometry. Her right groin Akash dialysis catheter was removed yesterday without incident. Laboratory results this morning show a WBC count of 19.4, hemoglobin 9.4, platelets 165, BUN 53, creatinine 1.90, AST 91, and ALT 274. Remote telemetry showing normal sinus rhythm heart rate 94 BPM. Atrial and ventricular epicardial pacemaker wires remained in place and grounded. The patient reports that she has been ambulating to the bathroom with minimal assistance from nursing staff. Objective - Vital Signs Vital signs: Vital Signs Temp 97.3 F L 01/07/21 08:00 Pulse 80 01/07/21 08:10 Resp 18 01/07/21 08:00 BP 114/56 01/07/21 08:00 Pulse Ox 95 01/07/21 08:00 Intake & Output 01/06/21 01/07/21 01/07/21 18:59 06:59 18:59 Intake Total 450 Output Total 1410 300 Balance -960 -300 Weight 62.8 kg Intake: Oral 450 Output: Urine 1405 300 Stool 5 Other: Voiding Method Indwelling Catheter Toilet # Voids 250 # Bowel Movements 1 ABP, PAP, CO, CI - Last Documented Arterial Blood Pressure 194/64 Pulmonary Artery Pressure 12/5 Cardiac Output 4.2 Cardiac Index 2.6 - Constitutional General appearance: Present: average body habitus, cooperative, no acute distress - EENT Eyes: Present: normal appearance. Absent: scleral icterus ENT: Present: hearing grossly normal - Neck Details: Neck is supple, no JVD, no lymphadenopathy. - Respiratory Details: Lung sounds essentially clear throughout, diminished were bilateral bases left greater than right. No wheezes, crackles or rhonchi. Respirations are symmetrical and nonlabored. Oxygen saturation is 96% on 2 L nasal cannula. Achieving 500 mL on her incentive spirometry with much encouragement. - Cardiovascular Details: Regular rhythm and rate. S1 and S2 present, negative for S3, gallop or murmur. Sternum is stable. Heart hugger is in place and she is demonstrating appropriate use. Remote telemetry showing normal sinus rhythm heart rate 94 BPM. No edema present. Knee-high DARBY hose and sequential compression devices in place to her bilateral lower extremities. - Gastrointestinal Gastrointestinal Comment(s): Abdomen soft, nontender and nondistended. Active bowel sounds present all 4 abdominal quadrants. No guarding or rigidity. No organomegaly appreciated. Tolerating oral intake. - Genitourinary Genitourinary Comment(s): Continues to void. - Integumentary Integumentary Comment(s): Skin is warm and dry. No clubbing or cyanosis is present. Midline sternal incision is clean, dry and approximated. No drainage or redness is present. Right lower extremity EVH site is clean, dry and approximated. - Neurologic Neurologic: Present: CNII-XII intact. Absent: focal deficits - Musculoskeletal Musculoskeletal: Present: gait normal, generalized weakness, strength equal bilaterally - Psychiatric Psychiatric: Present: A&O x's 3, appropriate affect, intact judgment & insight - Allied health notes Allied health notes reviewed: nursing - Labs CBC & Chem 7: 01/07/21 07:20 01/07/21 07:20 Labs: Abnormal Lab Results - Last 24 Hours (Table) 01/06/21 01/06/21 01/06/21 Range/Units 11:12 17:11 20:12 WBC (3.8-10.6) k/uL RBC (3.80-5.40) m/uL Hgb (11.4-16.0) gm/dL Hct (34.0-46.0) % RDW (11.5-15.5) % Sodium (137-145) mmol/L BUN (7-17) mg/dL Creatinine (0.52-1.04) mg/dL Glucose (74-99) mg/dL POC Glucose (mg/dL) 105 H 124 H 112 H (75-99) mg/dL Total Bilirubin (0.2-1.3) mg/dL AST (14-36) U/L ALT (4-34) U/L Alkaline Phosphatase (38-126) U/L Total Protein (6.3-8.2) g/dL Albumin (3.5-5.0) g/dL 01/07/21 01/07/21 01/07/21 Range/Units 06:08 07:20 07:20 WBC 19.4 H (3.8-10.6) k/uL RBC 3.01 L (3.80-5.40) m/uL Hgb 9.4 L (11.4-16.0) gm/dL Hct 29.1 L (34.0-46.0) % RDW 16.9 H (11.5-15.5) % Sodium 136 L (137-145) mmol/L BUN 53 H (7-17) mg/dL Creatinine 1.90 H (0.52-1.04) mg/dL Glucose 104 H (74-99) mg/dL POC Glucose (mg/dL) 113 H (75-99) mg/dL Total Bilirubin 2.4 H (0.2-1.3) mg/dL AST 91 H (14-36) U/L ALT 274 H (4-34) U/L Alkaline Phosphatase 177 H (38-126) U/L Total Protein 5.8 L (6.3-8.2) g/dL Albumin 3.1 L (3.5-5.0) g/dL - Imaging and Cardiology Chest x-ray: report reviewed, image reviewed Assessment and Plan Assessment: 1. Severe bicuspid aortic valve stenosis, status post aortic valve replacement with a #21 mm Jackson Inspiris bioprosthetic aortic valve 2. Single-vessel coronary artery disease, status post coronary artery bypass grafting 1 with a reverse saphenous vein graft aorta to the right coronary artery 3. History of hypertension 4. History of hyperlipidemia 5. History of hypothyroid 6. 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 Right internal carotid artery stenosis 50-79% per carotid duplex 8. Remote history of tobacco abuse 9. Preoperative elevation of her AST and ALT 10. Degenerative arthritis with chronic back pain 11. Family history of colon cancer 12. Postoperative acute blood loss anemia, expected secondary to hemodilution and cardiopulmonary bypass 13. Hypotension requiring pressor use 14. Acute kidney injury secondary to hypoperfusion requiring initiation of dialysis 15. Shock liver secondary to hypoperfusion 16. Lactic acidosis secondary to hypoperfusion 17. Hypoxic respiratory failure requiring BiPAP 18. Thrombocytopenia 19. A. fib with RVR, known common occurrence after open heart surgery, status post exclusion of the left atrial appendage 20. Coagulopathy with DIC 21. Left pleural effusion, status post thoracentesis with 1.5 L of thin serosanguineous drainage drained Plan: 1. Continue low-dose aspirin, and beta kiki. Will increase beta kiki as tolerated, currently on metoprolol tartrate 25 mg by mouth twice a day. 2. Plavix 75 mg by mouth daily was restarted yesterday, her platelet count today is 165. 3. Wean O2 as tolerated. Encourage incentive spirometry use 10 times every hour while awake. Bronchodilators per pulmonary/critical care medicine. 4. Increase activity as tolerated, up to chair for meals, ambulate as tolerated. PT/OT/cardiac rehab following. 5. GI/DVT prophylaxis 6. Will monitor daily labs and chest x-rays. Electrolyte replacement per protocol. 7. Pain control current when necessary orders. Continue to hold Narcotics due to the patient's feeling tired. 8. Insulin management per primary care service. Patient is not diabetic, hemoglobin A1c 5.7% 9. Acevedo catheter was discontinued yesterday. Continue to record strict accurate intake and output. Daily weights. 10. Nephrology continues to follow, avoid nephrotoxic agents. 11. Keep epicardial pacemaker wires in place and grounded. 12. Continue to encourage nutrition, continue ensure supplements. 13. Start cefepime 1 g every 12 hours IV piggyback, monitored WBC count. Patient remains afebrile. Send urinalysis with reflex culture. 14. Albumin 5% 250 mg IV piggyback 1 now. 15. More recommendations to follow based on patient's progress. Time with Patient: Greater than 30
--- NOTE | 2021-01-07 10:29 | P.PN ---
Subjective Progress Note Date: 01/07/21 HISTORY OF PRESENT ILLNESS This is a 65-year-old female patient of Dr. 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 Patient underwent echocardiogram that revealed an ejection fraction of 55-60% with LVH, mild to moderate MR, bicuspid severely calcified aortic valve with moderate aortic regurgitation, moderate tricuspid regurgitation. The patient underwent cardiac julián terizationTEE for further evaluation. The cath showed right coronary artery stenosis in the order of 85% without any significant coronary artery disease. The transthoracic echocardiogram showed severe aortic stenosis. Patient underwent aortic valve replacement and one-vessel CABG with reverse saphenous vein graft off the aorta to the right coronary artery. Patient was admitted into the intensive care unit and was successfully extubated. She is seen today in the intensive care unit. She is up in a recliner. [place] in place, mediastinal and right-sided chest tubes in place, Acevedo catheter in place. Patient denies having any chest pain. She states she is not feeling too bad today. She has a little nausea. No abdominal pain. She states she slept okay last night. She has been afebrile, heart rate 71, blood pressure 119/52, pulse ox 90% on 5 L nasal cannula. Blood work this morning reveals W BC 15.2, hemoglobin 8, platelet count 168. Electrolytes normal, BUN 19 and creatinine 0.78. Blood sugars running between 124 and 141. AST 167. Chest x-ray reveals small residual right apical pneumothorax may be present. Chest tubes pulled back slightly from comparison. [place] catheter is somewhat peripheral and the right main pulmonary artery region. Cardiomegaly. Small left pleural effusion. 12/28: Patient remains in the intensive care unit. Patient has become hypoten sive with low urine output, elevated lactic acid, anemia, liver enzyme elevation and generalized anasarca. Patient is been started on dopamine, Primacor and is status post albumin and is status post 1 unit packed RBCs this morning. Urine output is improving. She is on BiPAP. Patient complains of generalized not feeling well and shortness of breath. Repeat CXR reports slight increase in mild left hilar and left basilar edema and/or atelectasis. Small pleural effusion. WBC 18.7, hemoglobin initially 6.8 and repeat a 0.1. Platelet count 124. INR 2.8. Electrolytes normal. BUN 32 and creatinine 1.53. Blood sugars running in the 140-170s. Total bilirubin 1.9, AST 1140, ALT 662, alkaline phosphatase 30. Amylase and lipase normal. 12/29: She remains in the intensive care unit. She has not been intubated. Her overall condition continues to decline and she is scheduled for dialysis catheter placement to start hemodialysis. She has had virtually no urine output despite being on Lasix drip patient also went into atrial fibrillation and started on digoxin. She remains with right pleural and mediastinal chest tubes are in place. Additional new diagnoses include A. fib with RVR, ischemic bowel suspected, bicytopenia. Patient is awake. She is complaining of chest discomfort. She is not have increased edema. Her temperature has been low down to 96.5. Heart rate 114, blood pressure 122/54, pulse ox 90%. WBC 14.6, hemoglobin 6, platelet count 26. INR 3.3. Electrolytes normal. BUN 53 and creatinine 2.77. Calcium 7.8. Ionized calcium 3.8. Total bilirubin 3, AST 11,442, ALT 3572, alkaline phosphatase 41. She has been ordered for plasma, platelets and RBC transfusions. 12/30: Patient is currently on BiPAP. She had dialysis catheter placed by vascular surgeon yesterday and underwent her first hemodialysis with removal of 3 L. She has had no urine output overnight. She remains with chest tubes in place. Acevedo catheter is in place. Repeat blood work reveals W BC 13.3, hemoglobin 9, platelet count 24. She is scheduled for platelet transfusion today. INR 2.6. BUN 33 creatinine 2.18. Blood sugars are running between 110 and 138. Magnesium 2.2. Potassium 4.3. Total bilirubin 5.0, AST 8066, ALT 2707, alkaline phosphatase 74. Digoxin level II.9. Patient not currently on digoxin. classroom monitor sinus rhythm with a bundle branch block. She has been afebrile, heart rate in the 80s, blood pressure 138/52, pulse ox 93%. Cultures no growth at 24 hours. 12/31: Patient is scheduled for repeat dialysis today. She has had 15 mL output overnight of urine. Patient complains of nausea. Reglan changed to scheduled. She states she's had some ice chips. Patient is awake and alert but thinks it's June 2021. She did have a bowel movement this morning. Patient has been afebrile, heart rate in the 80s and 90s, blood pressure 145/72, pulse ox 97% on BiPAP. Repeat blood work reveals WBC 9.7, hemoglobin 8.5, platelet count 25. No plan for platelet transfusion today. INR is 2.3. Sodium 136 otherwise electrolytes are normal. BUN 41 and creatinine 2.58. Ionized calcium 4.1, total bilirubin 7.6, AST 4112, ALT 2017, alkaline phosphatase 94. Blood sugars are running between 96 and 136. PICC line is ordered for tomorrow. 01/01: Patient remains in the intensive care unit. She is now off BiPAP. Patient is starting to make urine at 15-20 mL per hour. Liver function tests are improving. She states that she is feeling a little nausea that comes and goes. She does have Zofran available and Reglan has been changed to when necess patrice. Pulse ox 93% on 3 L nasal cannula, blood pressure 163/75, heart rate 80s, afebrile. WBC 13.7, hemoglobin 9.1, platelet count 33. INR 1.8. Electrolytes normal. BUN 52 and creatinine 3.31. Blood sugars are running between 123 and 143. Ionized calcium 4.4, total bilirubin 11.1, AST 2123, ALT 1484, alkaline phosphatase 128. Chest x-ray reveals diminished lung volumes suspect worsening pulmonary vascular congestion. Increased moderate left pleural effusion with adjacent atelectasis and/or consolidation. Fine linear density projecting across the left apex suspected artifact rather than small pneumothorax. Ultrasound of the chest revealed left pleural effusion pocket 10.4 cm. Patient is status post calcium gluconate. Metoprolol increased to 25 mg twice daily. Patient is off antibiotics. 01/02: Patient is seen today sitting in recliner and her ICU room. She remains with [address] and Acevedo catheter. She has improved urine output. She complains of nausea. Last bowel movement was on December 31. She has been afebrile, heart rate in the 60s, blood pressure 140/74, pulse ox 99% on 3 L nasal cannula. Repeat blood work reveals WBC 18.5, hemoglobin 9.9, platelet count 62. INR 1.4. Sodium 136, BUN 61 and creatinine 3.37. Blood sugars running between 115 and 155. Total bilirubin 11.1, AST 1204, ALT 1176, alkaline phosphatase 179. Repeat chest x-ray reveals continued pulmonary vascular congestion and moderate left effusion with adjacent atelectasis and/or consolidation. Right-sided chest tube. No pneumothorax. Patient underwent dialysis yesterday with removal of 2.2 L. Dialysis treatment on hold for now the patient is followed closely by nephrology. 01/03: Patient remains in intensive care unit. Patient underwent left-sided thoracentesis with removal of 1.5 L. She has increased oxygen need from 3 L to 6 L with pulse ox of94%. Heart rate has been in the 70s, blood pressure 148/78. classroom monitor sinus rhythm. 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 Patient has had good urine output with no plan for dialysis today. No plan for Lasix today. Repeat blood work today is showing improvement with white count down to 15.5, hemoglobin 10.3, platelet count 84. INR 1.2. Sodium 135, potassium 3.5, chloride 95, CO2 28, worsening renal function with BUN 85 and creatinine 4.11. Total bilirubin 6.6, AST 568, ALT 867, alkaline phosphatase 256. 01/04: Patient is seen today sitting in recliner. Nephrology is planning to hold dialysis and diuretics today. Patient states that she does not feel bad today. She continues to have nausea off and on. She has her first meal but she is lactose intolerance and this will be addressed in her orders. Repeat chest x- ray reveals diminished size of left apical pneumothorax. Worsening left lower lobe infiltrate and/or pleural effusion. She has had chest tube removed. Acevedo catheter remains in place. WBC 17.5, hemoglobin 10.8. Electrolytes normal. BUN 103 and creatinine 4. AST 208, ALT 495 and alkaline phosphatase 254. All liver function tests are improving. 01/05: The patient remains in the intensive care unit. She is seen today sitting in recliner and appears to be comfortable. Patient states she is pain-free. She denies shortness of breath. She still has Acevedo catheter in place. She states she is not feeling too bad today. Patient has been afebrile,heart rate 76, blood pressure 137/70, pulse ox 92% on 2 L nasal cannula. WBC 15.0, hemoglobin 10.4, platelet count 114. Sodium 132, potassium 3.4, chloride 94, CO2 29, P1 107, creatinine 3.43. Blood sugars running between 100 1220. Total bilirubin 3.4, AST 115, ALT 364, alkaline phosphatase 219. Patient has been seen by physical therapy and occupational therapy and recommend home with homecare. Right femoral dialysis catheter remains in place but if renal function remains stable for the next 24-48 hours, this will be discontinued per nephrology. 01/06: Patient sitting in a chair very comfortable she is not in A. fib currently, still have Acevedo catheter in, physical therapy is limited to her room at this point. Her creatinine has improved with her BUN in the 50s might not need dialysis today and decision will be made by nephrology. Her liver enzymes are significantly down compared to before on blood sugar since was start sliding scale has been running in the low 100. Pain is well controlled currently. 01/07: Patient is out of the ICU, doing slightly better, fully catheter is out her creatinine is slightly but higher but no need for dialysis so far. REVIEW OF SYSTEMS Constitutional: No fever, no chills, no night sweats. No weight change. Reports generalized weakness, reports fatigue reports lethargy. No daytime sleepiness. EENT: No headache. No change in vision, no loss of vision. No loss of Hearing, no dizziness. No nasal drainage or congestion. No epistaxis. No sore throat. Lungs: Reports shortness of breath, cough, no sputum production. No wheezing. Cardiovascular: Reports chest discomfort, reports lower extremity edema. Reports generalized edema. No palpitations. No paroxysmal nocturnal dyspnea. No orthopnea. No lightheadedness or dizziness. No syncopal episodes. Abdominal: No abdominal pain. Reports intermittent nausea, denies vomiting. No diarrhea. No constipation. No bloody or tarry stools. Reports loss of appetite. Genitourinary: No dysuria, increased frequency, urgency. No urinary retention. Musculoskeletal: No myalgias. Reports muscle weakness, no gait dysfunction, no frequent falls. No back pain. No neck pain. Integumentary: No wounds, no lesions. No rash or pruritus. Neurologic: No aphasia. No facial droop. No change in mentation. No head injury. No headache. No paralysis. No paresthesia. Psychiatric: No depression. No anxiety. Endocrine: Reports abnormal blood sugars. PHYSICAL EXAMINATION Gen: This paradise 65-year-old female. She is resting in recliner, she is on nasal cannula, appears to be comfortable at rest. HEENT: Head is atraumatic, normocephalic. Pupils equal, round. Sclerae is icteric. NECK: Supple. No JVD. No lymphadenopathy. No thyromegaly. LUNGS: Diminished bilaterally. No wheezes or rhonchi. No intercostal retractions. HEART: Regular rate and rhythm. No murmur. ABDOMEN: Soft. Bowel sounds are present. No masses. No tenderness. Acevedo catheter in place with remy urine. EXTREMITIES: Mild generalized pedal edema. No calf tenderness. Dorsalis pedis palpable bilaterally. NEUROLOGICAL: Patient is awake, alert and oriented x3. Cranial nerves 2 through 12 are grossly intact. ASSESSMENT AND PLAN 1. Aortic valve replacement for severe bicuspid aortic valve stenosis and single-vessel CABG with CVG to RCA. Patient is postop day # 12. She is out of ICU and doing well so far. 2. Acute kidney injury with chronic kidney disease: Patient was treated with acute kidney failure with hemodialysis possibly secondary to hepatorenal syndro me and hypoperfusion symptoms are better so far. 3. Transaminitis secondary to hypoperfusion and shock liver, liver function are much better today 4. Acute blood loss anemia, expected following surgery. Repeat transfusion today. 5. Lactic acidosis secondary to hyperperfusion, improving. 6. A. fib with RVR, paroxysmal atrial fibrillation, converted to sinus rhythm. No anticoagulation. 7. Recurrent abdominal pain with possible ischemic bowel, has improved significantly patient is having bowel movement 8. Leukocytosis: No sign of active infection continue to watch CBC daily 9. Coagulopathy with DIC: Improved so far platelet count are normal. 10. Hypertension. Will control currently on amlodipine 5 mg a day and hydralazine 25 mg 3 times a day and still on metoprolol titrate 25 g twice a day. 11. Hyperlipidemia. Still off statin at this point was start probably higher dose of atorvastatin. 12. History of CVA 2. No major residual 13. Hypothyroidism. Continue levothyroxine 25 g daily. 14. Recurrent depression. Continue Zoloft 25 mg at bedtime. 15. Degenerative disc disease. 16. Moderate protein calorie malnutrition due to lack of oral intake. Diet changed to lactose free. 17. GI prophylaxis. Protonix 40 mg twice daily. 18. DVT prophylaxis. Off heparin due to thrombocytopenia Objective - Vital Signs Vital signs: Vital Signs Temp 97.8 F 01/07/21 04:00 Pulse 82 01/07/21 04:00 Resp 18 01/07/21 04:00 BP 123/65 01/07/21 04:00 Pulse Ox 96 01/07/21 04:00 Intake & Output 01/06/21 01/06/21 01/07/21 06:59 18:59 06:59 Intake Total 450 Output Total 426 1410 300 Balance -426 -960 -300 Weight 63 kg 62.8 kg Intake: Oral 450 Output: Urine 425 1405 300 Stool 1 5 Other: Voiding Method Indwelling Catheter Indwelling Catheter Toilet # Voids 250 # Bowel Movements 1 1 ABP, PAP, CO, CI - Last Documented Arterial Blood Pressure 194/64 Pulmonary Artery Pressure 12/5 Cardiac Output 4.2 Cardiac Index 2.6 - Labs CBC & Chem 7: 01/07/21 07:20 01/07/21 07:20 Labs: Abnormal Lab Results - Last 24 Hours (Table) 01/06/21 01/06/21 01/06/21 Range/Units 06:48 11:12 17:11 POC Glucose (mg/dL) 122 H 105 H 124 H (75-99) mg/dL 01/06/21 Range/Units 20:12 POC Glucose (mg/dL) 112 H (75-99) mg/dL
[2021-01-07 10:43] LABS: Appearance,Urine Cloudy (Clear); Bilirubin,Urine Negative (Negative); Blood,Urine Large (Negative); Color,Urine Yellow; Glucose,Urine (UA) Negative (Negative); Ketones,Urine Negative (Negative); Leukocyte Esterase,Urine Moderate (Negative); Mucus,Urine Rare /hpf; Nitrite,Urine Negative (Negative); Protein,Urine 1+ (Negative); RBC,Urine 156 /hpf (0-5); Specific Gravity,Urine 1.012 (1.001-1.035); Squamous Epithelial Cell,Urine 2 /hpf (0-4); Urobilinogen,Urine <2.0 mg/dL (<2.0); WBC,Urine 103 /hpf (0-5)
--- NOTE | 2021-01-07 11:10 | P.PN ---
Subjective Progress Note Date: 01/07/21 HISTORY OF PRESENT ILLNESS: 12/27/2020 This is a 65-year-old female with a past medical history significant for CVA/TIA, hypertension, hyperlipidemia, nicotine dependence, and hypothyroidism. Patient follows in the office with Dr. Lee. We have been asked to see the patient in consultation for postoperative care. Patient examined this morning in the intensive care unit. Patient is status post aortic valve replacement and CABG 1: SVG to RCA. Postop day #1. Patient is sitting up in the chair. Patient is hemodynamically stable and not requiring any vasopressor support. Patient is on 5 L nasal cannula with oxygen saturations greater than 92%. The patient has a weak nonproductive cough. She denies chest pain or pressure. She denies shortness of breath. She reports nausea this morning. No episodes of emesis. She is receiving 500cc albumin at the time of examination. Telemetry reveals sinus mechanism. Chest xray small residual right apical pneumothorax may be present. Cardiomegaly. Small left pleural effusion. Laboratory data: WBC 15.2. Hemoglobin 8.0. Platelet count 160. Sodium 137. Potassium 4.8. BUN 19. Creatinine 0.78. Magnesium 2.2. Current home cardiac medications include amlodipine 5 mg daily, metoprolol tartrate 12.5 mg twice a day, Lipitor 40 mg daily, and aspirin 81 mg daily FIDEL: 12/15/2020 revealing severe aortic stenosis which is calcific in nature with mild eccentric aortic regurgitation. Mild mitral and tricuspid regurgitation. Biatrial enlargement. No clot in left atrial appendage. No PFO. Normal LV function. Cardiac catheterization: 12/15/2020 revealing 80% lesion of RCA. 12/28/2020 Patient is s/p CABG x 1 and AVR. POD #1. Patient examined this morning in the ICU. Patient developed hypotension, lactic acidosis, shortness of breath, and increasing oxygen requirement overnight. Patient was placed on a BiPAP. She received sodium bicarb. She is currently on dopamine and Primacor. Hemoglobin is 6.8. Patient received 1 unit packed RBCs. Blood pressure 102/39. Heart rate in the 70s. 12/29/2020 Patient examined this morning in the intensive care unit. Patient remains on a bipap. Overnight, the patient had decreased urine output. Patient was given IV lasix and subsequently started on a lasix drip. Patient with worsening hypotension and has been started on vasopressors. Patient also went into afib with RVR this morning. She has been started on Digoxin. Hemoglobin 6.0. Platelet count 26. INR 3.3. BUN 53. Creatinine 2.77. AST 11,442. ALT 3572. Patient is to receive a hemodialysis catheter today and will be started on hemodialysis. 12/30/2020 Patient examined this morning in the intensive care unit. She remains on a BiPAP. patient states her breathing has improved this morning. Patient is curre ntly maintaining sinus mechanism on telemetry. Patient underwent hemodialysis yesterday with removal of 3 L. she is also receiving hemodialysis again this morning. She remains on vasopressor support with Agustín-Synephrine. Hemoglobin 9.0. Platelet count 24. BUN 33. Creatinine 2.18. AST 8066. ALT 2707. 12/31/2020 Patient examined this morning in the intensive care unit. Patient remains on a BiPAP. Patient is awake and alert. Patient remains in sinus mechanism on telemetry. Patient's vasopressors have been weaned off. Patient received hemodialysis for the second time yesterday. Hemoglobin 8.5. Platelet count 25. INR 2.3. BUN 41. Creatinine 2.56. AST 4112. ALT 2118. 01/01/2021 Patient examined this morning. She remains in intensive care unit. Patient has been weaned off BiPAP to nasal cannula. She denies chest pain or pressure. Denies shortness of breath. Patient remains off vasopressors. She received hemodialysis yesterday for the third time. Creatinine 3.31 today. BUN 52. LFTs are trending downward. AST 2123. ALT 1484. INR 1.8. Hemoglobin 9.1. Platelet count 33. She remains in sinus mechanism. Chest x-ray completed this morning revealed diminished lung volumes and suspected worsening pulmonary vascular congestion. Increasing moderate left pleural effusion with adjacent atelectasis and/or consolidation. Fine linear density projecting across the left apex, suspected external artifact rather than a small pneumothorax. Short interval follow-up recommended to reassess. 01/02/2021 Patient examined this morning in the intensive care unit. She is sitting up in the chair. She went back into afib yesterday. She remains in afib with controlled ventricular rate this morning. She complains of nausea. She received dialysis yesterday for the 3rd time. No plans for dialysis today but did receive a dose of IV lasix per nephrology. She remains off vasopressors. 01/03/2021 Patient examined this morning the intensive care unit. She is sitting up in the chair. Patient states her pain is tolerable this morning. She also reports improvement in her nausea. Patient has converted back to sinus rhythm. She remains off vasopressors. She received a dose of IV Lasix yesterday and has been diuresing well. Blood pressure 148/78. BUN 85. Creatinine 4.11. Chest x-ray this morning reveals increasing large left pleural effusion. Small right apical pneumothorax may be present. 01/07/2021 Patient has been transferred out of the intensive care unit to the cardiac stepdown unit. Patient examined this morning sitting in the chair. She denies chest pain or pressure. She denies shortness of breath. She is on room air with oxygen saturations greater than 92%. Blood pressure 114/56. Heart rate in the 80s. She is maintaining sinus mechanism on telemetry. PHYSICAL EXAM: VITAL SIGNS: Reviewed. GENERAL: Well-developed in no acute distress. HEENT: Head is normocephalic. Pupils are equal, round. Sclerae anicteric. Mucous membranes of the mouth are moist. Neck supple. No JVD or thyromegaly LUNGS: Respirations even and unlabored. Lungs diminished bilaterally. HEART: Regular rate and rhythm. S1 and S2 heard. Heart hugger noted. EXTREMITIES: Normal range of motion. No clubbing or cyanosis. Peripheral pulses intact. DARBY hose noted to bilateral lower extremities. ASSESSMENT: Severe aortic stenosis, s/p bioprosthetic aortic valve replacement, 12/26/2020 Coronary artery disease, s/p CABG x 1 SVG to RCA, 12/26/2020 New onset paroxysmal atrial fibrillation with RVR, currently maintaining sinus mechanism Acute hypoxic respiratory failure, requiring bipap, resolved Thrombocytopenia, resolved Coagulopathy, INR 3.3, resolved Acute blood loss anemia Lactic acidosis, resolved Transaminitis, suspect secondary to hypotension Acute kidney injury Hypertension Hyperlipidemia CVA with residual right-sided blindness Hypothyroidism Former nicotine dependence Large left pleural effusion, status post thoracentesis PLAN: Continue postoperative management per CTS Continue telemetry monitoring Continue current cardiac medications Increase activity as tolerated Encourage use of incentive spirometer Further recommendations pending patient course Nurse practitioner note has been reviewed by physician. Signing provider agrees with the documented findings, assessment, and plan of care. Objective - Vital Signs Vital signs: Vital Signs Temp 97.3 F L 01/07/21 08:00 Pulse 80 01/07/21 08:10 Resp 18 01/07/21 08:00 BP 114/56 01/07/21 08:00 Pulse Ox 95 01/07/21 08:00 Intake & Output 01/06/21 01/07/21 01/07/21 18:59 06:59 18:59 Intake Total 450 180 Output Total 1410 300 Balance -960 -300 180 Weight 62.8 kg Intake: Oral 450 180 Output: Urine 1405 300 Stool 5 Other: Voiding Method Indwelling Catheter Toilet # Voids 250 # Bowel Movements 1 ABP, PAP, CO, CI - Last Documented Arterial Blood Pressure 194/64 Pulmonary Artery Pressure 12/5 Cardiac Output 4.2 Cardiac Index 2.6 - Labs CBC & Chem 7: 01/07/21 07:20 01/07/21 07:20 Labs: Abnormal Lab Results - Last 24 Hours (Table) 01/06/21 01/06/21 01/06/21 Range/Units 11:12 17:11 20:12 WBC (3.8-10.6) k/uL RBC (3.80-5.40) m/uL Hgb (11.4-16.0) gm/dL Hct (34.0-46.0) % RDW (11.5-15.5) % Sodium (137-145) mmol/L BUN (7-17) mg/dL Creatinine (0.52-1.04) mg/dL Glucose (74-99) mg/dL POC Glucose (mg/dL) 105 H 124 H 112 H (75-99) mg/dL Total Bilirubin (0.2-1.3) mg/dL AST (14-36) U/L ALT (4-34) U/L Alkaline Phosphatase (38-126) U/L Total Protein (6.3-8.2) g/dL Albumin (3.5-5.0) g/dL Urine Appearance (Clear) Urine Protein (Negative) Urine Blood (Negative) Ur Leukocyte Esterase (Negative) Urine RBC (0-5) /hpf Urine WBC (0-5) /hpf Urine Mucus (None) /hpf 01/07/21 01/07/21 01/07/21 Range/Units 06:08 07:20 07:20 WBC 19.4 H (3.8-10.6) k/uL RBC 3.01 L (3.80-5.40) m/uL Hgb 9.4 L (11.4-16.0) gm/dL Hct 29.1 L (34.0-46.0) % RDW 16.9 H (11.5-15.5) % Sodium 136 L (137-145) mmol/L BUN 53 H (7-17) mg/dL Creatinine 1.90 H (0.52-1.04) mg/dL Glucose 104 H (74-99) mg/dL POC Glucose (mg/dL) 113 H (75-99) mg/dL Total Bilirubin 2.4 H (0.2-1.3) mg/dL AST 91 H (14-36) U/L ALT 274 H (4-34) U/L Alkaline Phosphatase 177 H (38-126) U/L Total Protein 5.8 L (6.3-8.2) g/dL Albumin 3.1 L (3.5-5.0) g/dL Urine Appearance (Clear) Urine Protein (Negative) Urine Blood (Negative) Ur Leukocyte Esterase (Negative) Urine RBC (0-5) /hpf Urine WBC (0-5) /hpf Urine Mucus (None) /hpf 01/07/21 Range/Units 10:21 WBC (3.8-10.6) k/uL RBC (3.80-5.40) m/uL Hgb (11.4-16.0) gm/dL Hct (34.0-46.0) % RDW (11.5-15.5) % Sodium (137-145) mmol/L BUN (7-17) mg/dL Creatinine (0.52-1.04) mg/dL Glucose (74-99) mg/dL POC Glucose (mg/dL) (75-99) mg/dL Total Bilirubin (0.2-1.3) mg/dL AST (14-36) U/L ALT (4-34) U/L Alkaline Phosphatase (38-126) U/L Total Protein (6.3-8.2) g/dL Albumin (3.5-5.0) g/dL Urine Appearance Cloudy H (Clear) Urine Protein 1+ H (Negative) Urine Blood Large H (Negative) Ur Leukocyte Esterase Moderate H (Negative) Urine RBC 156 H (0-5) /hpf Urine WBC 103 H (0-5) /hpf Urine Mucus Rare H (None) /hpf
[2021-01-07 11:41] LABS: Glucose,Whole Blood 91 mg/dL (75-99)
--- NOTE | 2021-01-07 13:07 | P.PN ---
Subjective Progress Note Date: 01/07/21 Follow-up for acute kidney injury needing CONTRACT CLERK. Last hemodialysis on 01/05/2021 for alleviated BUN. Good urine output today. Akash catheter has been removed on 01/06/2021 Objective - Vital Signs Vital signs: Vital Signs Temp 97.3 F L 01/07/21 08:00 Pulse 86 01/07/21 11:57 Resp 18 01/07/21 11:17 BP 122/58 01/07/21 11:17 Pulse Ox 95 01/07/21 11:17 Intake & Output 01/06/21 01/07/21 01/07/21 18:59 06:59 18:59 Intake Total 450 180 Output Total 1410 300 75 Balance -960 -300 105 Weight 62.8 kg Intake: Oral 450 180 Output: Urine 1405 300 75 Stool 5 Other: Voiding Method Indwelling Catheter Toilet # Voids 250 # Bowel Movements 1 ABP, PAP, CO, CI - Last Documented Arterial Blood Pressure 194/64 Pulmonary Artery Pressure 12/5 Cardiac Output 4.2 Cardiac Index 2.6 - Exam No acute distress. S1-S2 heard Decreased breath sounds Acevedo catheter Trace edema - Labs CBC & Chem 7: 01/07/21 07:20 01/07/21 07:20 Labs: Abnormal Lab Results - Last 24 Hours (Table) 01/06/21 01/06/21 01/07/21 Range/Units 17:11 20:12 06:08 WBC (3.8-10.6) k/uL RBC (3.80-5.40) m/uL Hgb (11.4-16.0) gm/dL Hct (34.0-46.0) % RDW (11.5-15.5) % Sodium (137-145) mmol/L BUN (7-17) mg/dL Creatinine (0.52-1.04) mg/dL Glucose (74-99) mg/dL POC Glucose (mg/dL) 124 H 112 H 113 H (75-99) mg/dL Total Bilirubin (0.2-1.3) mg/dL AST (14-36) U/L ALT (4-34) U/L Alkaline Phosphatase (38-126) U/L Total Protein (6.3-8.2) g/dL Albumin (3.5-5.0) g/dL Urine Appearance (Clear) Urine Protein (Negative) Urine Blood (Negative) Ur Leukocyte Esterase (Negative) Urine RBC (0-5) /hpf Urine WBC (0-5) /hpf Urine Mucus (None) /hpf 01/07/21 01/07/21 01/07/21 Range/Units 07:20 07:20 10:21 WBC 19.4 H (3.8-10.6) k/uL RBC 3.01 L (3.80-5.40) m/uL Hgb 9.4 L (11.4-16.0) gm/dL Hct 29.1 L (34.0-46.0) % RDW 16.9 H (11.5-15.5) % Sodium 136 L (137-145) mmol/L BUN 53 H (7-17) mg/dL Creatinine 1.90 H (0.52-1.04) mg/dL Glucose 104 H (74-99) mg/dL POC Glucose (mg/dL) (75-99) mg/dL Total Bilirubin 2.4 H (0.2-1.3) mg/dL AST 91 H (14-36) U/L ALT 274 H (4-34) U/L Alkaline Phosphatase 177 H (38-126) U/L Total Protein 5.8 L (6.3-8.2) g/dL Albumin 3.1 L (3.5-5.0) g/dL Urine Appearance Cloudy H (Clear) Urine Protein 1+ H (Negative) Urine Blood Large H (Negative) Ur Leukocyte Esterase Moderate H (Negative) Urine RBC 156 H (0-5) /hpf Urine WBC 103 H (0-5) /hpf Urine Mucus Rare H (None) /hpf Assessment and Plan Assessment: #1 nonoliguric acute kidney injury secondary to ischemic ATN status post CONTRACT CLERK. Last hemodialysis for 01/05/2021. Baseline creatinine 1.0 MG per DL. #2 CAD status post CABG and aortic valve replacement on 12/26/2020 #3 volume overload with bilateral pleural effusions #4 acute on chronic diastolic CHF #5 anemia multifactorial #6 hypokalemia with metabolic alkalosis Plan: #1 renal function improving. Good urine output. #2 Replace KCl. #3 avoid nephrotoxic agents and hypotensive episodes.
--- NOTE | 2021-01-07 15:50 | P.PN ---
Subjective Progress Note Date: 01/07/21 Principal diagnosis: Aortic valve replacement and CABG 1 vessel postoperative day # 12 2020 the patient is being seen for a follow-up. Awake and alert, lethargic. Response to the moving all 4 extremities without any limitation. She remains on BiPAP at a pressure of 12/5 with an FiO2 of 50%. Generating a tidal volumes between 350 and 400 with a respiratory rate in the mid 20s. Abdomen is ventilation is around 8 L per minute. The patient has the chest tube still in p lace both the right pleural and mediastinal chest tube. The output has been 2 40 mL overnight over the past 12 hours and output is still bloody. She made minimal amount of urine output probably in the order of 50 mL all night. Hemodynamically stable. Off Agustín-Synephrine. She converted into sinus rhythm with a first-degree AV block. Chest x-ray showing some mild four-vessel congestion and all of the chest tubes are in place. Hemoglobin is at 8.5 with a platelet count of 25 and a coagulation profile shows an INR of 2.3 with a PT of 22.3 and a PTT of 32, lactic acid level is down to 1.8, BUN is 41 with a creatinine of 2.5 and a sodium of 136 with a potassium of 3.9. Glucose is 125. Shock liver is gradually improving and the AST is down to 4112 and ALT is down to 2017. She underwent hemodialysis yesterday without any major complications. He dialyzes catheter is still present in her right groin. No signs of any bleeding. No other issues for now. She is arousable. She follows commands and answers questions appropriately. No other significant events overnight. Note that her follow-up digoxin level was down to 2.1. She got transfused with platelets yesterday. Patient was reevaluated today on 01/01/2021, patient remains in the ICU, fully awake, alert, in no distress. Patient is on 3 L nasal cannula. She denies any shortness of breath, continues to have a right sided chest tube in place, she has mostly symptoms of surgical pain, and intermittent episodes of nausea. Patient is off pressors, she is in sinus rhythm with first-degree AV block, remains on IV Zosyn. Her labs were reviewed, platelets remained low at 63,000 BUN is 52 creatinine 3.31, INR is 1.8. Liver enzymes remain elevated. Urine output about 20 mL per hour overnight. She received dialysis yesterday for the third time. Chest x-ray today showed a left-sided pneumothorax and good sized left-sided pleural effusion, discussed this issue with thoracic surgery planned to observe for now, no plans for thoracentesis or chest tube placement. I prefer. Chest tube placement specially with her platelets being as low. Patient was reevaluated today on 01/02/2021, remains in the ICU, she is on 3 L nasal cannula, patient received hemodialysis yesterday, and 2.2 L were removed. Today her chest x-ray continues to show left lower lobe atelectasis and pleural effusion, she continues to have a small left-sided apical pneumothorax, her platelets are down to 62,000. Liver function is at this remain elevated. But seems to be trending down. Her IV fluids at KVO. Patient is in atrial fibrillation with controlled rate. Right-sided chest tube remains in place. Patient is not in any distress, again she is on 3 L nasal cannula. WBC count today is 18.5 hemoglobin is 9.9 her electrolytes are normal renal profile showed a BUN of 61 creatinine of 3.37. Patient was reevaluated today on 01/03/2021, remains in the ICU, on few liters nasal cannula, patient is feeling better, breathing easier, however her chest x- ray clearly showed a good sized left-sided pleural effusion worsening compared to previous x-rays. Patient also had a left-sided apical pneumothorax which is not clearly seen mostly because of the worsening pleural effusion noted on the left side. Her WBC count today is 15.5 hemoglobin is 10.3 platelets are up to 84,000. PT and PTT are normal. Lites are normal. Renal profile is worse with 85 BUN and creatinine 4.11. Patient is on hemodialysis. After reviewing the chest x-ray, discussed the patient's condition with the thoracic surgery/Dr. Gaffney, and recommended left-sided thoracentesis which was done, and I was able to drain 1.5 L of gross blood from the left pleural space. After the procedure he can clearly see the left apical pneumothorax which was present all along. And it is not a complication related to the thoracentesis. Reevaluated today on 01/04/2021, patient remains in the ICU, resting, she is extremely tired and exhausted, weak, she is on 4 L nasal cannula, and her O2 saturation is in the mid 90s. Chest x-ray is basically about the same, she seems to be having a stable left apical pneumothorax, and small amount of left pleural effusion seems to be rebuilding again compared to the chest x-ray that was done right after thoracentesis yesterday. Clinically however the patient is about the same. WBC count today 17.5 hemoglobin is 10.8 electrodes are normal renal profile remains poor with a BUN of 103 creatinine 4.0. Liver enzymes remain elevated but they seem to be trending down, AST is 208 ALT is 495 and PHOSPHATASE IS 254 Patient was reevaluated today on 01/05/2021, remains in the ICU, sitting at a bedside chair, in no distress, on 2 L nasal cannula, O2 saturation is in in the low 90s. Labs this morning were basically unremarkable, hemoglobin is 10.4. Platelets are 114. Electrolytes are normal. Creatinine is 3.43. Liver enzymes are trending down. Femoral dialysis catheter remains in place. Chest x-ray is showing a small left pleural effusion, could not see the left-sided pneumothorax, but it seems to be possibly very apical. Patient was reevaluated today on 01/06/2021, remains in the ICU, sitting at a bedside chair, in no distress patient O2 sat is 94%, she is on 2.5 L nasal cannula. Reviewed her chest x-ray, showed mostly small bilateral pleural effusions, left lower lobe atelectasis, could not see any pneumothorax on this x-ray today. WBC count is 15.6 hemoglobin is 9.3. Electrolytes are normal BUN is 50 creatinine is 1.87, liver enzymes are improving. AST is 84 ALT is 268 and alkaline phosphatase is 176 Patient was reevaluated today on 01/07/2021, she is now on the regular medical floor, resting in bed, and her O2 saturations 95% on room air. Patient has her at bedside, and she tells me today that she feels much better than she felt in the last few days. Chest x-ray is showing a small left-sided pleural effusion not large enough to warrant repeat thoracentesis at this point. Patient had a thoracentesis a few days ago, and I had over 1500 mL of gross blood the drain from her left pleural space. CBC is relatively normal except she does have leukocytosis with WBC count of 19.4. Electrodes are normal. BUN is down to 53 creatinine is down to 1.90. Liver enzymes are trending down with ALT of 274 and alkaline phosphatase of 177. Her urine is showing positive leukocyte esterase, hence I went ahead and ordered a urine culture on this patient, patient has no symptoms, her Acevedo catheter has been removed. Patient is on cefepime for now Objective - Vital Signs Vital signs: Vital Signs Temp 97.3 F L 01/07/21 08:00 Pulse 86 01/07/21 11:57 Resp 18 01/07/21 11:17 BP 122/58 01/07/21 11:17 Pulse Ox 95 01/07/21 11:17 Intake & Output 01/06/21 01/07/21 01/07/21 18:59 06:59 18:59 Intake Total 450 380 Output Total 1410 300 275 Balance -960 -300 105 Weight 62.8 kg Intake: Oral 450 380 Output: Urine 1405 300 275 Stool 5 Other: Voiding Method Indwelling Catheter Toilet # Voids 250 # Bowel Movements 1 ABP, PAP, CO, CI - Last Documented Arterial Blood Pressure 194/64 Pulmonary Artery Pressure 12/5 Cardiac Output 4.2 Cardiac Index 2.6 - Exam Physical Exam: Revealed a 65-year-old female in no distress, on room air. Head: Atraumatic, normocephalic. HEENT:[Neck is supple.] [No neck masses.] [No thyromegaly.] [No JVD.] PERRLA, EOMI, nonicteric. Chest: [Symmetrical chest expansion, diminished breath sounds at the bases bilaterally. . Cardiac Exam: [Normal S1 and S2, no S3 gallop, no murmur.] Abdomen: [Soft, nontender, no megaly, no rebound, no guarding, normal bowel sounds.] Extremities: [No clubbing, no edema, no cyanosis.] Neurological Exam: [No focal neurologic deficit.] Alert and oriented 3. Patient is noted to be generally weak. Psychiatric: Normal mood, affect and normal mental status examination. Skin: No rashes. - Labs CBC & Chem 7: 01/07/21 07:20 01/07/21 07:20 Labs: Abnormal Lab Results - Last 24 Hours (Table) 01/06/21 01/06/21 01/07/21 Range/Units 17:11 20:12 06:08 WBC (3.8-10.6) k/uL RBC (3.80-5.40) m/uL Hgb (11.4-16.0) gm/dL Hct (34.0-46.0) % RDW (11.5-15.5) % Sodium (137-145) mmol/L BUN (7-17) mg/dL Creatinine (0.52-1.04) mg/dL Glucose (74-99) mg/dL POC Glucose (mg/dL) 124 H 112 H 113 H (75-99) mg/dL Total Bilirubin (0.2-1.3) mg/dL AST (14-36) U/L ALT (4-34) U/L Alkaline Phosphatase (38-126) U/L Total Protein (6.3-8.2) g/dL Albumin (3.5-5.0) g/dL Urine Appearance (Clear) Urine Protein (Negative) Urine Blood (Negative) Ur Leukocyte Esterase (Negative) Urine RBC (0-5) /hpf Urine WBC (0-5) /hpf Urine Mucus (None) /hpf 01/07/21 01/07/21 01/07/21 Range/Units 07:20 07:20 10:21 WBC 19.4 H (3.8-10.6) k/uL RBC 3.01 L (3.80-5.40) m/uL Hgb 9.4 L (11.4-16.0) gm/dL Hct 29.1 L (34.0-46.0) % RDW 16.9 H (11.5-15.5) % Sodium 136 L (137-145) mmol/L BUN 53 H (7-17) mg/dL Creatinine 1.90 H (0.52-1.04) mg/dL Glucose 104 H (74-99) mg/dL POC Glucose (mg/dL) (75-99) mg/dL Total Bilirubin 2.4 H (0.2-1.3) mg/dL AST 91 H (14-36) U/L ALT 274 H (4-34) U/L Alkaline Phosphatase 177 H (38-126) U/L Total Protein 5.8 L (6.3-8.2) g/dL Albumin 3.1 L (3.5-5.0) g/dL Urine Appearance Cloudy H (Clear) Urine Protein 1+ H (Negative) Urine Blood Large H (Negative) Ur Leukocyte Esterase Moderate H (Negative) Urine RBC 156 H (0-5) /hpf Urine WBC 103 H (0-5) /hpf Urine Mucus Rare H (None) /hpf Assessment and Plan Assessment: Impression: Status post aortic valve replacement and single-vessel bypass surgery postoperative day #12 Shock liver secondary to cardiogenic shock and severe metabolic acidosis secondary to cardiogenic shock, resolving. Coagulopathy secondary to shocked liver, improving steadily over the last few days. Hyperlipidemia. Hypothyroidism. History of CVA. Episodes of atrial flutter and RVR, presently in normal sinus rhythm. Spontaneous Left-sided pneumothorax, exact etiology is not clear, resolved Acute kidney injury and renal failure secondary to cardiogenic shock/ca rdiorenal, patient has been on hemodialysis 3, being followed by nephrology. Thrombocytopenia, improving. Postoperative blood loss, expected Previous history of tobacco dependence and moderate COPD, FEV1 of 56% History of CVA to right eye in 2004 and followed by TIA. Left sided hemothorax, status post left-sided thoracentesis on 01/03/2021, and 1.5 L of gross blood removed from the left pleural space. Possible urinary tract infection, cultures are pending, patient is on cefepime for now. Recommendation: Continue present supportive care measures. Continue beta blockers. Titrate oxygen accordingly. Continue bronchodilators. Ordered urine culture in the meantime patient is on cefepime. Continue to monitor liver enzymes. Continue to monitor chest x-ray on a daily basis. Continue insulin Continue GI and DVT prophylaxis. We'll continue to follow. Time with Patient: Less than 30
[2021-01-07 16:41] LABS: Glucose,Whole Blood 159 mg/dL (75-99)
[2021-01-07 20:15] LABS: Glucose,Whole Blood 123 mg/dL (75-99)
[2021-01-07] MEDS: CEFEPIME 1 GM in SODIUM CHLORIDE 0.9% 50 ML IVPB SCH (21:11)
[2021-01-07] MEDS: LEVOTHYROXINE 25 MCG TAB PO SCH (21:11)
[2021-01-07] MEDS: SENNOSIDES-DOCUSATE SODIUM 1 EACH TAB PO SCH (21:11)
[2021-01-07] MEDS: SERTRALINE 25 MG TAB PO SCH (21:12)
[2021-01-08] MEDS: ACETAMINOPHEN TAB 325 MG TAB PO PRN ×4 (00:22→23:05)
--- NOTE | 2021-01-08 06:15 | P.CONS ---
History of Present Illness - Chief Complaint Cardiac debility - History of Present Illness I had the opportunity to see patient for inpatient rehab consultation with regard to cardiac debility. Patient admitted to [facility] December 26 with known cardiac disease. Admitted for and underwent elective CABG and valve replacement. Seen medically by Dr. Ott. Seen by Dr. Huffman for acute kidney injury. Patient seen and did have hemodialysis catheter placed for need. Chest x-rays followed for persistent effusions. PT reports two-person assistance functional mobility, transfers, gait 24 feet, hand-held. Limited endurance. OT has been following patient is recommending subacute placement. Previous functional history as elicited from patient: 65-year-old right-handed white female who is lives in a first-floor return floor home with her . is retired and may have mental disorder. Patient works full- time and does the cooking, laundry, driving, standing shower and gait without device. PMD Dr. Darrel Li. Denies tobacco or alcohol. Family history both parents with cancer. Review of Systems Review of systems: ENT: Denies sneezes or discharge. Eyes: Denies discharge or photophobia. Cardiac: Denies chest pain or palpitation. Pulmonary: At least mild shortness of breath. Breast: Denies discharge or lumps. Gastrointestinal: Denies nausea, emesis, constipation, diarrhea. Genitourinary: Denies discharge or frequency. Musculoskeletal: Denies muscle or bone aches. Neurologic: Generalized weakness. Endocrine: Denies shakes or sweats. Oncology: Denies cancers. Dermatologic: Denies rash, itching, pruritus. ALLERGY/immunology: Denies sneezes, rashes. Past Medical History Past Medical History: CVA/TIA, Hyperlipidemia, Hypertension, Musculoskeletal Disorder, Thyroid Disorder Additional Past Medical History / Comment(s): Calcified aortic valve/bicuspid valve with a valve area of 0.5 cm, single-vessel coronary artery disease, history of CVA with right-sided blindness, hypertension, hyperlipidemia, back & right hip pain, hypothyroidism History of Any Multi-Drug Resistant Organisms: None Reported Past Surgical History: Section, Heart Catheterization Additional Past Surgical History / Comment(s): anibal feet,rt hand,c sect x2,breast bx Past Anesthesia/Blood Transfusion Reactions: No Reported Reaction Additional Past Anesthesia/Blood Transfusion Reaction / Comm: no hx blood transfusion Smoking Status: Former smoker - Past Family History Mother Family Medical History: Cancer Additional Family Medical History / Comment(s): cervical Sister(s) Family Medical History: Cancer Additional Family Medical History / Comment(s): breast Father Family Medical History: Cancer Additional Family Medical History / Comment(s): colon Medications and Allergies Home Medications Medication Instructions Recorded Confirmed Type Aspirin EC [Ecotrin Low Dose] 81 mg PO HS 12/12/20 12/26/20 History Atorvastatin [Lipitor] 40 mg PO HS 12/13/20 12/26/20 History Baclofen 10 mg PO HS 12/13/20 12/26/20 History HYDROcodone/APAP 5-325MG [[place] 1 tab PO BID PRN 12/13/20 12/26/20 History 5-325] Ibuprofen [Motrin] 800 mg PO BID PRN 12/13/20 12/26/20 History Levothyroxine Sodium [Synthroid] 25 mcg PO HS 12/13/20 12/26/20 History Metoprolol Tartrate [Lopressor] 12.5 mg PO BID 12/13/20 12/26/20 History Sertraline [Zoloft] 25 mg PO HS 12/13/20 12/26/20 History amLODIPine [Norvasc] 5 mg PO HS 12/13/20 12/26/20 History Allergies Allergy/AdvReac Type Severity Reaction Status Date / Time No Known Allergies Allergy Verified 12/26/20 06:04 Physical Exam Vitals: Vital Signs Temp Pulse Pulse Resp BP Pulse Ox 01/08/21 04:00 97.9 F 79 18 126/65 95 01/07/21 22:50 98.1 F 64 17 120/68 95 01/07/21 20:00 98.2 F 83 16 121/60 95 01/07/21 16:32 86 01/07/21 16:23 85 01/07/21 15:36 98.1 F 82 18 125/67 96 01/07/21 11:57 86 01/07/21 11:49 84 01/07/21 11:17 75 18 122/58 95 01/07/21 08:10 80 01/07/21 08:02 86 01/07/21 08:00 97.3 F L 83 18 114/56 95 Intake and Output 01/07/21 01/07/21 01/08/21 14:59 22:59 06:59 Intake Total 380 Output Total 75 400 Balance 305 -400 Intake: Oral 380 Output: Urine 75 400 Other: Voiding Method Toilet # Voids 1 # Bowel Movements 1 Weight 62.4 kg Skin: Good color, texture, turgor. General: Thin build and comfortable appearance. Head: Normocephalic, atraumatic. Eyes: Symmetric. Pupils equal round. Ears: Symmetric. Hearing within normal limits. Mouth: Clear. Neck: Supple. Carotid without bruit. Cardiac: Regular rate and rhythm. Lungs: Clear anteriorly and posteriorly. Abdomen: Soft active nontender. Extremities: Normal tone. Neurological: Mental status: Alert, cooperative, pleasant. Cranial nerves: Symmetric facial tone and trapezius. Motor: Active movement all 4 limbs. Sensation: Intact throughout. DTRs: Symmetric and equal throughout. Mobility: Patient reports hands-on physical assist for standing, transfers and gait in room. Results CBC & Chem 7: 01/07/21 07:20 01/07/21 07:20 Labs: Abnormal Lab Results - Last 24 Hours (Table) 01/07/21 01/07/21 01/07/21 Range/Units 06:08 07:20 07:20 WBC 19.4 H (3.8-10.6) k/uL RBC 3.01 L (3.80-5.40) m/uL Hgb 9.4 L (11.4-16.0) gm/dL Hct 29.1 L (34.0-46.0) % RDW 16.9 H (11.5-15.5) % Sodium 136 L (137-145) mmol/L BUN 53 H (7-17) mg/dL Creatinine 1.90 H (0.52-1.04) mg/dL Glucose 104 H (74-99) mg/dL POC Glucose (mg/dL) 113 H (75-99) mg/dL Total Bilirubin 2.4 H (0.2-1.3) mg/dL AST 91 H (14-36) U/L ALT 274 H (4-34) U/L Alkaline Phosphatase 177 H (38-126) U/L Total Protein 5.8 L (6.3-8.2) g/dL Albumin 3.1 L (3.5-5.0) g/dL Urine Appearance (Clear) Urine Protein (Negative) Urine Blood (Negative) Ur Leukocyte Esterase (Negative) Urine RBC (0-5) /hpf Urine WBC (0-5) /hpf Urine Mucus (None) /hpf 01/07/21 01/07/21 01/07/21 Range/Units 10:21 16:40 20:14 WBC (3.8-10.6) k/uL RBC (3.80-5.40) m/uL Hgb (11.4-16.0) gm/dL Hct (34.0-46.0) % RDW (11.5-15.5) % Sodium (137-145) mmol/L BUN (7-17) mg/dL Creatinine (0.52-1.04) mg/dL Glucose (74-99) mg/dL POC Glucose (mg/dL) 159 H 123 H (75-99) mg/dL Total Bilirubin (0.2-1.3) mg/dL AST (14-36) U/L ALT (4-34) U/L Alkaline Phosphatase (38-126) U/L Total Protein (6.3-8.2) g/dL Albumin (3.5-5.0) g/dL Urine Appearance Cloudy H (Clear) Urine Protein 1+ H (Negative) Urine Blood Large H (Negative) Ur Leukocyte Esterase Moderate H (Negative) Urine RBC 156 H (0-5) /hpf Urine WBC 103 H (0-5) /hpf Urine Mucus Rare H (None) /hpf Microbiology - Last 24 Hours (Table) 01/07/21 10:21 Urine Culture - Preliminary Urine,Voided Assessment and Plan Plan: Impression: 1. Cardiac debility with CAD with recent CABG and valve 2. Hypertension. 3. Dyslipidemia. 4. Hypothyroid. 5. History of stroke. Comments and plan: At this time PT and OT are ongoing. Patient's main concern i s being more accessible to in [facility]. At this time she prefers placement SNF and in fact PT and OT are recommending SNF placement as well. This of be my recommendation as well as.
[2021-01-08 06:35] LABS: Glucose,Whole Blood 123 mg/dL (75-99)
[2021-01-08] MEDS: INSULIN ASPART (NovoLOG) 100 UNIT/ML VIAL SQ SCH ×4 (06:36→20:48)
[2021-01-08] MEDS: IPRATROPIUM-ALBUTEROL 3 ML NEB INHALATION SCH ×5 (06:59→20:09)
--- NOTE | 2021-01-08 08:17 | XR ---
EXAMINATION TYPE: XR chest 2V DATE OF EXAM: 01/08/2021 COMPARISON: 01/07/2021 HISTORY: 65-year-old female postop cardiac surgery TECHNIQUE: Frontal and lateral views FINDINGS: Median sternotomy wires are present. Prostatic aortic valve. Heart mildly enlarged. Continued moderat e left effusion. Before meals right basilar opacities. Mild prominence to the pulmonary vasculature. IMPRESSION: Continued moderate left effusion with adjacent atelectasis and/or consolidation. New small right effu adam. Possible developing mild pulmonary vascular congestion.
[2021-01-08 08:35] LABS: Anisocytosis Slight; Basophils % (A) 0 %; Eosinophils # (A) 0.1 k/uL (0-0.7); Eosinophils % (A) 0 %; HCT 29.2 % (34.0-46.0); HGB 9.5 gm/dL (11.4-16.0); Hypochromasia Slight; Lymphocytes # (A) 0.5 k/uL (1.0-4.8); Lymphocytes % (A) 3 %; MCH 31.7 pg (25.0-35.0); MCHC 32.5 g/dL (31.0-37.0); MCV 97.4 fL (80.0-100.0); Macrocytosis Slight; Mean Platelet Volume 8.5; Monocytes # (A) 1.1 k/uL (0-1.0); Monocytes % (A) 6 %; Neutrophils # (A) 16.4 k/uL (1.3-7.7); Neutrophils % (A) 90 %; Platelet Count 194 k/uL (150-450); RBC 2.99 m/uL (3.80-5.40); RDW 16.8 % (11.5-15.5); WBC 18.2 k/uL (3.8-10.6)
[2021-01-08 08:58] LABS: Albumin 3.3 g/dL (3.5-5.0); Calcium 8.9 mg/dL (8.4-10.2); Potassium 3.5 mmol/L (3.5-5.1); Total Bilirubin 1.9 mg/dL (0.2-1.3)
--- NOTE | 2021-01-08 09:22 | US ---
Same day EXAMINATION TYPE: US chest DATE OF EXAM: 01/08/2021 COMPARISON: Radiograph same day CLINICAL HISTORY: 65-year-old female for possible thoracentesis right side. Post CABG TECHNIQUE: Targeted ultrasound of the posterior bilateral chest FINDINGS: EXAM MEASUREMENTS: Right Pleural Effusion pocket size: 5.2 cm A/P with lung noted floating within fluid pocket Right skin surface to fluid distance: 2.4 cm Left Pleural Effusion pocket size: 4.7 cm A/P with lung noted floating within fluid pocket Left skin surface to fluid distance: 2.2 cm Right side was marked for possible thoracentesis outside the dept. Left side was marked for possible thoracentesis outside the dept. Pulmonologists are able to review the images in the patient?s EMR. IMPRESSIONS: Small to moderate left and small right effusions with adjacent atelectasis.
[2021-01-08] MEDS ORDERED: SENNOSIDES-DOCUSATE SODIUM 1 EACH TAB PO PRN (09:33)
[2021-01-08] MEDS: ASPIRIN 81 MG PO SCH (09:38)
[2021-01-08] MEDS: CLOPIDOGREL 75 MG TAB PO SCH (09:38)
[2021-01-08] MEDS: hydrALAZINE HCL 25 MG TAB PO SCH ×3 (09:38→20:44)
[2021-01-08] MEDS: amLODIPine 5 MG TAB PO SCH (09:38)
[2021-01-08] MEDS: METOPROLOL TARTRATE 25 MG TAB PO SCH ×2 (09:38→20:47)
[2021-01-08] MEDS: PANTOPRAZOLE 40 MG/10 ML VIAL IVP SCH ×2 (09:39→20:47)
--- NOTE | 2021-01-08 10:19 | P.PN ---
Subjective Progress Note Date: 01/08/21 Principal diagnosis: Severe bicuspid aortic valve stenosis, coronary artery disease. 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, right internal carotid artery stenosis 50-79% per Doppler, previous tobacco dependence with moderate obstructive lung disease and preoperative FEV1 56% of predicted, preoperative elevation of AST and ALT, degenerative arthritis with chronic back pain, and fam chato history of colon cancer POD #13 aortic valve replacement with #21 mm Jackson Inspiris bioprosthetic aortic valve, coronary artery bypass grafting 1 with reverse saphenous vein graft off the aorta to the right coronary artery, clip ligation of the left atrial appendage with a 35 mm AtriClip, intraoperative transesophageal echocardiogram. Postoperative acute blood loss anemia, expected secondary to hemodilution and cardiopulmonary bypass pump, status post PRBC transfusion Hypotension requiring pressor use, remains off pressors, resolved Acute kidney injury secondary to hypoperfusion requiring initiation of dialysis, improving Shock liver secondary to hypoperfusion, improving Lactic acidosis secondary to hypoperfusion, resolved Hypoxic respiratory failure requiring BiPAP, currently on room air Thrombocytopenia, resolved A. fib with RVR, known common occurrence after open heart surgery, remains in sinus rhythm Coagulopathy with DIC, resolved Left-sided bloody pleural effusion, status post left sided thoracentesis 01/03/[address] Pérez with removal of 1.5 L bloody fluid The patient was seen and examined this morning with Dr. Chen. She is sitting up in a recliner on the cardiac stepdown unit in no acute distress. Denies pain or shortness of breath, working on incentive spirometry but with poor effort. She has been up in the shower, ambulatory in the room with axis cyst. Labs this morning demonstrated WBC 18.2, hemoglobin 9.5, platelet count 194, BUN 48, cr eatinine 1.7 to, AST 77, ALT 206, total bili 1.9. Patient does complain of some loose stools which she says is not uncommon for her. Urinalysis demonstrated 1+ protein, large blood with RBC 156, moderate leukocyte esterase with WBC 103, negative nitrites, she was started on IV cefepime, culture pending. Discharge planning in progress, she was evaluated this morning by Dr. Mckinnon and is felt to be more appropriate for [facility] facility versus inpatient rehab, social work consulted for insurance authorization. Objective - Vital Signs Vital signs: Vital Signs Temp 97.8 F 01/08/21 08:00 Pulse 84 01/08/21 08:00 Resp 18 01/08/21 08:00 BP 151/69 01/08/21 08:00 Pulse Ox 98 01/08/21 08:00 Intake & Output 01/07/21 01/08/21 01/08/21 18:59 06:59 18:59 Intake Total 380 477 Output Total 275 200 Balance 105 -200 477 Weight 62.4 kg Intake: Oral 380 477 Output: Urine 275 200 Other: Voiding Method Toilet # Voids 1 # Bowel Movements 1 ABP, PAP, CO, CI - Last Documented Arterial Blood Pressure 194/64 Pulmonary Artery Pressure 12/5 Cardiac Output 4.2 Cardiac Index 2.6 - Exam CONSTITUTIONAL: Appears comfortable, cooperative, no acute distress RESPIRATORY: Lungs sounds diminished bilaterally. Respirations even, nonlabored. Currently on room air with oxygen saturation 95%. Able to achieve 500 mL on incentive spirometry. Strong cough. CARDIOVASCULAR: S1, S2 present. Regular rate and rhythm, sinus rhythm on telemetry. Sternum stable. Palpable peripheral pulses bilaterally. No edema present. No calf pain or tenderness noted. Heart hugger in place with patient demonstrating appropriate use. Antiembolism stockings, SCDs present. GASTROINTESTINAL: Abdomen soft, nontender, nondistended. Active bowel sounds present 4 quadrants. Tolerating diet. Positive loose bowel movement. GENITOURINARY: Continues to void INTEGUMENTARY: Skin is warm and dry with evidence of good perfusion. Anterior chest incision well approximated and covered with dry intact dressing. Right lower extremity EVH site well approximated without redness or drainage. NEUROLOGIC: Cranial nerves II through XII intact MUSKULOSKELETAL: Able to move all extremities, strength equal bilaterally, weak gait requiring assistance 2 PSYCHIATRIC: Alert and oriented to person place and time, appropriate affect, intact judgment and insight INVASIVE LINES AND TUBES: A/V epicardial pacemaker wires present, grounded - Allied health notes Allied health notes reviewed: nursing - Labs CBC & Chem 7: 01/08/21 07:07 01/08/21 07:07 Labs: Abnormal Lab Results - Last 24 Hours (Table) 01/07/21 01/07/21 01/07/21 Range/Units 10:21 16:40 20:14 WBC (3.8-10.6) k/uL RBC (3.80-5.40) m/uL Hgb (11.4-16.0) gm/dL Hct (34.0-46.0) % RDW (11.5-15.5) % Neutrophils # (1.3-7.7) k/uL Lymphocytes # (1.0-4.8) k/uL Monocytes # (0-1.0) k/uL BUN (7-17) mg/dL Creatinine (0.52-1.04) mg/dL Glucose (74-99) mg/dL POC Glucose (mg/dL) 159 H 123 H (75-99) mg/dL Total Bilirubin (0.2-1.3) mg/dL AST (14-36) U/L ALT (4-34) U/L Alkaline Phosphatase (38-126) U/L Total Protein (6.3-8.2) g/dL Albumin (3.5-5.0) g/dL Urine Appearance Cloudy H (Clear) Urine Protein 1+ H (Negative) Urine Blood Large H (Negative) Ur Leukocyte Esterase Moderate H (Negative) Urine RBC 156 H (0-5) /hpf Urine WBC 103 H (0-5) /hpf Urine Mucus Rare H (None) /hpf 01/08/21 01/08/21 01/08/21 Range/Units 06:33 07:07 07:07 WBC 18.2 H (3.8-10.6) k/uL RBC 2.99 L (3.80-5.40) m/uL Hgb 9.5 L (11.4-16.0) gm/dL Hct 29.2 L (34.0-46.0) % RDW 16.8 H (11.5-15.5) % Neutrophils # 16.4 H (1.3-7.7) k/uL Lymphocytes # 0.5 L (1.0-4.8) k/uL Monocytes # 1.1 H (0-1.0) k/uL BUN 48 H (7-17) mg/dL Creatinine 1.72 H (0.52-1.04) mg/dL Glucose 114 H (74-99) mg/dL POC Glucose (mg/dL) 123 H (75-99) mg/dL Total Bilirubin 1.9 H (0.2-1.3) mg/dL AST 77 H (14-36) U/L ALT 206 H (4-34) U/L Alkaline Phosphatase 143 H (38-126) U/L Total Protein 6.0 L (6.3-8.2) g/dL Albumin 3.3 L (3.5-5.0) g/dL Urine Appearance (Clear) Urine Protein (Negative) Urine Blood (Negative) Ur Leukocyte Esterase (Negative) Urine RBC (0-5) /hpf Urine WBC (0-5) /hpf Urine Mucus (None) /hpf Microbiology - Last 24 Hours (Table) 01/07/21 10:21 Urine Culture - Preliminary Urine,Voided - Imaging and Cardiology Chest x-ray: report reviewed, image reviewed Assessment and Plan Assessment: 1. Severe bicuspid aortic valve stenosis, status post aortic valve replacement with #21 mm Jackson Inspiris bioprosthetic aortic valve 2. Coronary artery disease, status post single vessel CABG 3. History of hypertension 4. Hyperlipidemia, treated, cholesterol 111, LDL 38 5. Hypothyroid 6. 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 Right internal carotid artery stenosis 50-79% per Doppler 8. Previous tobacco dependence with moderate obstructive lung disease and preoperative FEV1 56% of predicted 9. Preoperative elevation of AST and ALT with transaminitis postoperatively, likely from hypotension 10. Degenerative arthritis with chronic back pain 11. Family history of colon cancer 12. Postoperative acute blood loss anemia, expected secondary to hemodilution and cardiopulmonary bypass pump 13. Hypotension requiring pressor use 14. Acute kidney injury secondary to hypoperfusion requiring initiation of dialysis 15. Shock liver secondary to hypoperfusion 16. Lactic acidosis secondary to hypoperfusion 17. Hypoxic respiratory failure requiring BiPAP 18. Thrombocytopenia 19. A. fib with RVR, known common occurrence after open heart surgery, status post exclusion of the left atrial appendage 20. Coagulopathy with DIC 21. Left pleural effusion, status post left-sided thoracentesis Plan: 1. Continue aspirin, Plavix, beta kiki therapy, Norvasc. Statin continues to be on hold, will restart when liver enzymes normalize. Will increase beta kiki as tolerated. 2. Encourage incentive spirometry use 10 times every hour while awake. Bronchodilators per temperer. Mucomyst added. Ultrasound of the chest ordered to evaluate extent of effusions 3. Increase activity, up to chair, ambulate as tolerated. PT/OT/cardiac rehab following 4. Will monitor daily labs and chest x-rays. Electrolyte replacement as needed. 5. GI/DVT prophylaxis 6. Pain control current per current medication regimen. 7. Insulin management per primary care service. Patient is not diabetic, hemoglobin A1c 5.7% 8. Strict accurate intake and output. Daily weight 9. Will discontinue epicardial pacemaker wires today. To remain on bedrest for 1 hour post where removal. 10. Continue to encourage nutrition, Ensure supplements ordered 11. Urinalysis sent and resulted, culture pending. Will also send C. diff sample. 12. Discharge planning in progress. Anticipate discharge to [facility] facility towards the end of the week, social work consulted for insurance authorization 13. More recommendations to follow based on patient's progress Time with Patient: Greater than 30
[2021-01-08] MEDS: CEFEPIME 1 GM in SODIUM CHLORIDE 0.9% 50 ML IVPB SCH ×2 (10:40→20:47)
[2021-01-08] MEDS: ACETYLCYSTEINE 800 MG/4 ML VIAL INHALATION SCH ×3 (10:57→20:09)
[2021-01-08 11:49] LABS: Glucose,Whole Blood 95 mg/dL (75-99)
--- NOTE | 2021-01-08 11:55 | P.PN ---
Subjective Progress Note Date: 01/08/21 HISTORY OF PRESENT ILLNESS This is a 65-year-old female patient of Dr. 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 Patient underwent echocardiogram that revealed an ejection fraction of 55-60% with LVH, mild to moderate MR, bicuspid severely calcified aortic valve with moderate aortic regurgitation, moderate tricuspid regurgitation. The patient underwent cardiac julián terizationTEE for further evaluation. The cath showed right coronary artery stenosis in the order of 85% without any significant coronary artery disease. The transthoracic echocardiogram showed severe aortic stenosis. Patient underwent aortic valve replacement and one-vessel CABG with reverse saphenous vein graft off the aorta to the right coronary artery. Patient was admitted into the intensive care unit and was successfully extubated. She is seen today in the intensive care unit. She is up in a recliner. Shellman-Kelli in place, mediastinal and right-sided chest tubes in place, Acevedo catheter in place. Patient denies having any chest pain. She states she is not feeling too bad today. She has a little nausea. No abdominal pain. She states she slept okay last night. She has been afebrile, heart rate 71, blood pressure 119/52, pulse ox 90% on 5 L nasal cannula. Blood work this morning reveals W BC 15.2, hemoglobin 8, platelet count 168. Electrolytes normal, BUN 19 and creatinine 0.78. Blood sugars running between 124 and 141. AST 167. Chest x-ray reveals small residual right apical pneumothorax may be present. Chest tubes pulled back slightly from comparison. Shellman-Kelli catheter is somewhat peripheral and the right main pulmonary artery region. Cardiomegaly. Small left pleural effusion. 12/28: Patient remains in the intensive care unit. Patient has become hypoten sive with low urine output, elevated lactic acid, anemia, liver enzyme elevation and generalized anasarca. Patient is been started on dopamine, Primacor and is status post albumin and is status post 1 unit packed RBCs this morning. Urine output is improving. She is on BiPAP. Patient complains of generalized not feeling well and shortness of breath. Repeat CXR reports slight increase in mild left hilar and left basilar edema and/or atelectasis. Small pleural effusion. WBC 18.7, hemoglobin initially 6.8 and repeat a 0.1. Platelet count 124. INR 2.8. Electrolytes normal. BUN 32 and creatinine 1.53. Blood sugars running in the 140-170s. Total bilirubin 1.9, AST 1140, ALT 662, alkaline phosphatase 30. Amylase and lipase normal. 12/29: She remains in the intensive care unit. She has not been intubated. Her overall condition continues to decline and she is scheduled for dialysis catheter placement to start hemodialysis. She has had virtually no urine output despite being on Lasix drip patient also went into atrial fibrillation and started on digoxin. She remains with right pleural and mediastinal chest tubes are in place. Additional new diagnoses include A. fib with RVR, ischemic bowel suspected, bicytopenia. Patient is awake. She is complaining of chest discomfort. She is not have increased edema. Her temperature has been low down to 96.5. Heart rate 114, blood pressure 122/54, pulse ox 90%. WBC 14.6, hemoglobin 6, platelet count 26. INR 3.3. Electrolytes normal. BUN 53 and creatinine 2.77. Calcium 7.8. Ionized calcium 3.8. Total bilirubin 3, AST 11,442, ALT 3572, alkaline phosphatase 41. She has been ordered for plasma, platelets and RBC transfusions. 12/30: Patient is currently on BiPAP. She had dialysis catheter placed by vascular surgeon yesterday and underwent her first hemodialysis with removal of 3 L. She has had no urine output overnight. She remains with chest tubes in place. Acevedo catheter is in place. Repeat blood work reveals W BC 13.3, hemoglobin 9, platelet count 24. She is scheduled for platelet transfusion today. INR 2.6. BUN 33 creatinine 2.18. Blood sugars are running between 110 and 138. Magnesium 2.2. Potassium 4.3. Total bilirubin 5.0, AST 8066, ALT 2707, alkaline phosphatase 74. Digoxin level II.9. Patient not currently on digoxin. night monitor sinus rhythm with a bundle branch block. She has been afebrile, heart rate in the 80s, blood pressure 138/52, pulse ox 93%. Cultures no growth at 24 hours. 12/31: Patient is scheduled for repeat dialysis today. She has had 15 mL output overnight of urine. Patient complains of nausea. Reglan changed to scheduled. She states she's had some ice chips. Patient is awake and alert but thinks it's June 2021. She did have a bowel movement this morning. Patient has been afebrile, heart rate in the 80s and 90s, blood pressure 145/72, pulse ox 97% on BiPAP. Repeat blood work reveals WBC 9.7, hemoglobin 8.5, platelet count 25. No plan for platelet transfusion today. INR is 2.3. Sodium 136 otherwise electrolytes are normal. BUN 41 and creatinine 2.58. Ionized calcium 4.1, total bilirubin 7.6, AST 4112, ALT 2017, alkaline phosphatase 94. Blood sugars are running between 96 and 136. PICC line is ordered for tomorrow. 01/01: Patient remains in the intensive care unit. She is now off BiPAP. Patient is starting to make urine at 15-20 mL per hour. Liver function tests are improving. She states that she is feeling a little nausea that comes and goes. She does have Zofran available and Reglan has been changed to when necess patrice. Pulse ox 93% on 3 L nasal cannula, blood pressure 163/75, heart rate 80s, afebrile. WBC 13.7, hemoglobin 9.1, platelet count 33. INR 1.8. Electrolytes normal. BUN 52 and creatinine 3.31. Blood sugars are running between 123 and 143. Ionized calcium 4.4, total bilirubin 11.1, AST 2123, ALT 1484, alkaline phosphatase 128. Chest x-ray reveals diminished lung volumes suspect worsening pulmonary vascular congestion. Increased moderate left pleural effusion with adjacent atelectasis and/or consolidation. Fine linear density projecting across the left apex suspected artifact rather than small pneumothorax. Ultrasound of the chest revealed left pleural effusion pocket 10.4 cm. Patient is status post calcium gluconate. Metoprolol increased to 25 mg twice daily. Patient is off antibiotics. 01/02: Patient is seen today sitting in recliner and her ICU room. She remains with [address] and Acevedo catheter. She has improved urine output. She complains of nausea. Last bowel movement was on December 31. She has been afebrile, heart rate in the 60s, blood pressure 140/74, pulse ox 99% on 3 L nasal cannula. Repeat blood work reveals WBC 18.5, hemoglobin 9.9, platelet count 62. INR 1.4. Sodium 136, BUN 61 and creatinine 3.37. Blood sugars running between 115 and 155. Total bilirubin 11.1, AST 1204, ALT 1176, alkaline phosphatase 179. Repeat chest x-ray reveals continued pulmonary vascular congestion and moderate left effusion with adjacent atelectasis and/or consolidation. Right-sided chest tube. No pneumothorax. Patient underwent dialysis yesterday with removal of 2.2 L. Dialysis treatment on hold for now the patient is followed closely by nephrology. 01/03: Patient remains in intensive care unit. Patient underwent left-sided thoracentesis with removal of 1.5 L. She has increased oxygen need from 3 L to 6 L with pulse ox of94%. Heart rate has been in the 70s, blood pressure 148/78. night monitor sinus rhythm. 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 Patient has had good urine output with no plan for dialysis today. No plan for Lasix today. Repeat blood work today is showing improvement with white count down to 15.5, hemoglobin 10.3, platelet count 84. INR 1.2. Sodium 135, potassium 3.5, chloride 95, CO2 28, worsening renal function with BUN 85 and creatinine 4.11. Total bilirubin 6.6, AST 568, ALT 867, alkaline phosphatase 256. 01/04: Patient is seen today sitting in recliner. Nephrology is planning to hold dialysis and diuretics today. Patient states that she does not feel bad today. She continues to have nausea off and on. She has her first meal but she is lactose intolerance and this will be addressed in her orders. Repeat chest x- ray reveals diminished size of left apical pneumothorax. Worsening left lower lobe infiltrate and/or pleural effusion. She has had chest tube removed. Acevedo catheter remains in place. WBC 17.5, hemoglobin 10.8. Electrolytes normal. BUN 103 and creatinine 4. AST 208, ALT 495 and alkaline phosphatase 254. All liver function tests are improving. 01/05: The patient remains in the intensive care unit. She is seen today sitting in recliner and appears to be comfortable. Patient states she is pain-free. She denies shortness of breath. She still has Acevedo catheter in place. She states she is not feeling too bad today. Patient has been afebrile,heart rate 76, blood pressure 137/70, pulse ox 92% on 2 L nasal cannula. WBC 15.0, hemoglobin 10.4, platelet count 114. Sodium 132, potassium 3.4, chloride 94, CO2 29, P1 107, creatinine 3.43. Blood sugars running between 100 1220. Total bilirubin 3.4, AST 115, ALT 364, alkaline phosphatase 219. Patient has been seen by physical therapy and occupational therapy and recommend home with homecare. Right femoral dialysis catheter remains in place but if renal function remains stable for the next 24-48 hours, this will be discontinued per nephrology. 01/06: Patient sitting in a chair very comfortable she is not in A. fib currently, still have Acevedo catheter in, physical therapy is limited to her room at this point. Her creatinine has improved with her BUN in the 50s might not need dialysis today and decision will be made by nephrology. Her liver enzymes are significantly down compared to before on blood sugar since was start sliding scale has been running in the low 100. Pain is well controlled currently. 01/07: Patient is out of the ICU, doing slightly better, fully catheter is out her creatinine is slightly but higher but no need for dialysis so far. 01/08: Patient is seen today on the Cardiac Stepdown Unit. He has resting and recliner and appears to be comfortable. She feels like she is getting a little bit stronger but still having shortness of breath with ambulating to the bathroom. Discussed discharge planning with the patient and she wants to go to subacute rehab. She has been afebrile, HR 70s, BP 126/65, PO 95% on RA. CM sinus rhythm, first degree block. WBC 18.2, HGB 9.5, PLT 194. Blood sugars 123-159. IS is only 500 ml. Repeat CXR reveals continued moderate left effusion with adjacent atelectasis and/or consolidation. New small right effusion. Possible developing mild pulmonary vascular congestion. She has been evaluated by Dr. Mckinnon for IP rehab. Patient prefers subacute rehab which is also re commended by therapies. REVIEW OF SYSTEMS Constitutional: No fever, no chills, no night sweats. No weight change. Reports generalized weakness, reports fatigue reports lethargy. No daytime sleepiness. EENT: No headache. No change in vision, no loss of vision. No loss of Hearing, no dizziness. No nasal drainage or congestion. No epistaxis. No sore throat. Lungs: Reports shortness of breath, cough, no sputum production. No wheezing. Cardiovascular: Reports chest discomfort, reports lower extremity edema. Reports generalized edema. No palpitations. No paroxysmal nocturnal dyspnea. No orthopnea. No lightheadedness or dizziness. No syncopal episodes. Abdominal: No abdominal pain. Reports intermittent nausea, denies vomiting. No diarrhea. No constipation. No bloody or tarry stools. Reports loss of appetite. Genitourinary: No dysuria, increased frequency, urgency. No urinary retention. Musculoskeletal: No myalgias. Reports muscle weakness, no gait dysfunction, no frequent falls. No back pain. No neck pain. Integumentary: No wounds, no lesions. No rash or pruritus. Neurologic: No aphasia. No facial droop. No change in mentation. No head injury. No headache. No paralysis. No paresthesia. Psychiatric: No depression. No anxiety. Endocrine: Reports abnormal blood sugars. PHYSICAL EXAMINATION Gen: This paradise 65-year-old female. She is resting in recliner, she is on nasal cannula, appears to be comfortable at rest in recliner. HEENT: Head is atraumatic, normocephalic. Pupils equal, round. Sclerae is icteric. NECK: Supple. No JVD. No lymphadenopathy. No thyromegaly. LUNGS: Diminished bilaterally. No wheezes or rhonchi. No intercostal retractions. HEART: Regular rate and rhythm. No murmur. ABDOMEN: Soft. Bowel sounds are present. No masses. No tenderness. EXTREMITIES: Mild generalized pedal edema. No calf tenderness. Dorsalis pedis palpable bilaterally. NEUROLOGICAL: Patient is awake, alert and oriented x3. Cranial nerves 2 through 12 are grossly intact. ASSESSMENT AND PLAN 1. Aortic valve replacement for severe bicuspid aortic valve stenosis and single-vessel CABG with CVG to RCA. Patient is postop day # 13. Anuradha current management per cardiothoracic surgery team. 2. Acute kidney injury with chronic kidney disease: Patient was treated with acute kidney failure with hemodialysis possibly secondary to hepatorenal syndrome and hypoperfusion symptoms are better so far. 3. Transaminitis secondary to hypoperfusion and shock liver, liver function are much better today 4. Acute blood loss anemia, expected following surgery. Repeat transfusion today. 5. Lactic acidosis secondary to hyperperfusion, improving. 6. A. fib with RVR, paroxysmal atrial fibrillation, converted to sinus rhythm, anticipated with surgery. No anticoagulation. 7. Recurrent abdominal pain with possible ischemic bowel, has improved significantly patient is having bowel movement 8. Leukocytosis: No sign of active infection continue to watch CBC daily 9. Coagulopathy with DIC: Improved so far platelet count are normal. 10. Hypertension. Will control currently on amlodipine 5 mg a day and hydralazine 25 mg 3 times a day and still on metoprolol titrate 25 g twice a day. 11. Hyperlipidemia. Still off statin at this point was start probably higher dose of atorvastatin. 12. History of CVA 2. No major residual 13. Hypothyroidism. Continue levothyroxine 25 g daily. 14. Recurrent depression. Continue Zoloft 25 mg at bedtime. 15. Degenerative disc disease. 16. Moderate protein calorie malnutrition due to lack of oral intake. Diet changed to lactose free. 17. GI prophylaxis. Protonix 40 mg twice daily. 18. DVT prophylaxis. Off heparin due to thrombocytopenia DISCHARGE PLAN Subacute rehab Impression and plan of care have been directed as dictated by the signing physician. Donna Gutierrez nurse practitioner acting as scribe for signing physician. Objective - Vital Signs Vital signs: Vital Signs Temp 97.9 F 01/08/21 04:00 Pulse 80 01/08/21 07:11 Resp 18 01/08/21 04:00 BP 126/65 01/08/21 04:00 Pulse Ox 95 01/08/21 04:00 Intake & Output 01/07/21 01/08/21 01/08/21 18:59 06:59 18:59 Intake Total 380 Output Total 275 200 Balance 105 -200 Weight 62.4 kg Intake: Oral 380 Output: Urine 275 200 Other: Voiding Method Toilet # Voids 1 # Bowel Movements 1 ABP, PAP, CO, CI - Last Documented Arterial Blood Pressure 194/64 Pulmonary Artery Pressure 12/5 Cardiac Output 4.2 Cardiac Index 2.6 - Labs CBC & Chem 7: 01/08/21 07:07 01/08/21 07:07 Labs: Abnormal Lab Results - Last 24 Hours (Table) 01/07/21 01/07/21 01/07/21 Range/Units 10:21 16:40 20:14 WBC (3.8-10.6) k/uL RBC (3.80-5.40) m/uL Hgb (11.4-16.0) gm/dL Hct (34.0-46.0) % RDW (11.5-15.5) % Neutrophils # (1.3-7.7) k/uL Lymphocytes # (1.0-4.8) k/uL Monocytes # (0-1.0) k/uL POC Glucose (mg/dL) 159 H 123 H (75-99) mg/dL Urine Appearance Cloudy H (Clear) Urine Protein 1+ H (Negative) Urine Blood Large H (Negative) Ur Leukocyte Esterase Moderate H (Negative) Urine RBC 156 H (0-5) /hpf Urine WBC 103 H (0-5) /hpf Urine Mucus Rare H (None) /hpf 01/08/21 01/08/21 Range/Units 06:33 07:07 WBC 18.2 H (3.8-10.6) k/uL RBC 2.99 L (3.80-5.40) m/uL Hgb 9.5 L (11.4-16.0) gm/dL Hct 29.2 L (34.0-46.0) % RDW 16.8 H (11.5-15.5) % Neutrophils # 16.4 H (1.3-7.7) k/uL Lymphocytes # 0.5 L (1.0-4.8) k/uL Monocytes # 1.1 H (0-1.0) k/uL POC Glucose (mg/dL) 123 H (75-99) mg/dL Urine Appearance (Clear) Urine Protein (Negative) Urine Blood (Negative) Ur Leukocyte Esterase (Negative) Urine RBC (0-5) /hpf Urine WBC (0-5) /hpf Urine Mucus (None) /hpf Microbiology - Last 24 Hours (Table) 01/07/21 10:21 Urine Culture - Preliminary Urine,Voided
--- NOTE | 2021-01-08 13:40 | P.PN ---
Subjective 12/27/2020 This is a 65-year-old female with a past medical history significant for severe bicuspid aortic valve stenosis, coroanry artery disease, CVA/TIA, hypertension, hyperlipidemia, former nicotine dependence, and hypothyroidism Patient follows in the office with Dr. Lee. We have been asked to see the patient in consultation for postoperative care. Patient is status post aortic valve replacement and CABG 1: SVG to RCA on 12/26/2020. Postop day #1. Chest xray small residual right apical pneumothorax may be present. Cardiomegaly. Small left pleural effusion. Current home cardiac medications include amlodipine 5 mg daily, metoprolol tartrate 12.5 mg twice a day, Lipitor 40 mg daily, and aspirin 81 mg daily FIDEL: 12/15/2020 revealing severe aortic stenosis which is calcific in nature with mild eccentric aortic regurgitation. Mild mitral and tricuspid regurgitation. Biatrial enlargement. No clot in left atrial appendage. No PFO. Normal LV function. Cardiac catheterization: 12/15/2020 revealing 80% lesion of RCA. 12/28/2020: Patient developed hypotension, lactic acidosis, shortness of breath, and increasing oxygen requirement overnight. Patient was placed on a BiPAP. She received sodium bicarb. Hemoglobin is 6.8. Patient received 1 unit packed RBCs. 12/29/2020: On Bipap. Decreased urine output - given IV lasix and subsequently started on a lasix drip. Patient with worsening hypotension- started on vasopressors. Patient also went into afib with RVR. She has been started on Digoxin. Hemoglobin 6.0. Patient is to receive a hemodialysis catheter today and will be started on hemodialysis. 12/30/2020: On BiPAP. Maintaining sinus mechanism on telemetry. Patient underwent hemodialysis yesterday with removal of 3 L. she is also receiving hemodialysis again this morning. She remains on vasopressor support with Agustín-Synephrine. 12/31/2020: On Bipap Patient remains in sinus mechanism on telemetry. Patient's vasopressors have been weaned off. Patient received hemodialysis for the second time yesterday. 01/01/2021: Patient has been weaned off BiPAP to nasal cannula. Patient remains off vasopressors. She received hemodialysis yesterday for the third time. Creatinine 3.31 today. BUN 52. LFTs are trending downward. AST 2123. ALT 1484. INR 1.8. Hemoglobin 9.1. Platelet count 33. She remains in sinus mechanism. Chest x-ray completed this morning revealed diminished lung volumes and suspected worsening pulmonary vascular congestion. Increasing moderate left pleural effusion with adjacent atelectasis and/or consolidation. Fine linear density projecting across the left apex, suspected external artifact rather than a small pneumothorax. Short interval follow-up recommended to reassess. 01/02/2021: She went back into afib yesterday. She remains in afib with controlled ventricular rate this morning. She complains of nausea. She received dialysis yesterday for the 3rd time. No plans for dialysis today but did receive a dose of IV lasix per nephrology. She remains off vasopressors. 01/03/2021: Patient has converted back to sinus rhythm. She remains off vasopressors. She received a dose of IV Lasix yesterday and has been diuresing well. Chest x-ray this morning reveals increasing large left pleural effusion. Small right apical pneumothorax may be present. Patient underwent Left sided thoracentesis by Dr. Pérez with removal of 1.5L blood fluid. 01/07/2021: Patient transferred out of the intensive care unit to the cardiac stepdown unit. 01/08/2021: Patient examined this morning sitting in the chair. She denies chest pain or pressure. She denies shortness of breath. She is on room air with oxygen saturations greater than 92%. Blood pressure 126/65 Heart rate in the 80s. She is maintaining sinus mechanism on telemetry. HR 70s-80s. Currently being maintained on amlodipine 5 mg daily, aspirin 81 mg daily, Plavix 75 mg daily, hydralazine 25 mg 3 times a day, metoprolol tartrate 25 mg twice a day. Laboratory data reviewed- WBC 18.2, hemoglobin stable at 9.5, platelets 194, sodium 138, potassium 3.5, serum creatinine 1.72 (1.90 yesterday), Liver enzymes downtrending- AST 206, ALT 143 PHYSICAL EXAM: VITAL SIGNS: Reviewed. GENERAL: Well-developed in no acute distress. HEENT: Head is normocephalic. Pupils are equal, round. Sclerae anicteric. Mucous membranes of the mouth are moist. Neck supple. No JVD or thyromegaly LUNGS: Respirations even and unlabored. Lungs diminished bilaterally. HEART: Regular rate and rhythm. S1 and S2 heard. Heart hugger noted. EXTREMITIES: Normal range of motion. No clubbing or cyanosis. Peripheral pulses intact. DARBY polanco noted to bilateral lower extremities. ASSESSMENT: Severe aortic stenosis, s/p bioprosthetic aortic valve replacement, 12/26/2020 Coronary artery disease, s/p CABG x 1 SVG to RCA, 12/26/2020 New onset paroxysmal atrial fibrillation with RVR, currently maintaining sinus mechanism Acute hypoxic respiratory failure, requiring bipap, resolved Thrombocytopenia, resolved Coagulopathy, INR 3.3, resolved Acute blood loss anemia Lactic acidosis, resolved Transaminitis, suspect secondary to hypotension Acute kidney injury Hypertension Hyperlipidemia CVA with residual right-sided blindness Hypothyroidism Former nicotine dependence Large left pleural effusion, status post thoracentesis PLAN: Continue postoperative management per CTS Patient on aspirin 81md daily, Plavix 75mg daily, Amlodipine 5md daily, metopr olol tartrate 25mg BID Statin continues to be on hold due to elevated liver enzymes Continue telemetry monitoring Continue current cardiac medications Increase activity as tolerated Encourage use of incentive spirometer Plan is for patient to be discharged to [facility] facility once medically cleared Further recommendations pending patient course Nurse practitioner note has been reviewed by physician. Signing provider agrees with the documented findings, assessment, and plan of care. Objective - Vital Signs Vital signs: Vital Signs Temp 97.9 F 01/08/21 04:00 Pulse 80 01/08/21 07:11 Resp 18 01/08/21 04:00 BP 126/65 01/08/21 04:00 Pulse Ox 95 01/08/21 04:00 Intake & Output 01/07/21 01/08/21 01/08/21 18:59 06:59 18:59 Intake Total 380 Output Total 275 200 Balance 105 -200 Weight 62.4 kg Intake: Oral 380 Output: Urine 275 200 Other: Voiding Method Toilet # Voids 1 # Bowel Movements 1 ABP, PAP, CO, CI - Last Documented Arterial Blood Pressure 194/64 Pulmonary Artery Pressure 12/5 Cardiac Output 4.2 Cardiac Index 2.6 - Labs CBC & Chem 7: 01/08/21 07:07 01/08/21 07:07 Labs: Abnormal Lab Results - Last 24 Hours (Table) 01/07/21 01/07/21 01/07/21 Range/Units 10:21 16:40 20:14 WBC (3.8-10.6) k/uL RBC (3.80-5.40) m/uL Hgb (11.4-16.0) gm/dL Hct (34.0-46.0) % RDW (11.5-15.5) % Neutrophils # (1.3-7.7) k/uL Lymphocytes # (1.0-4.8) k/uL Monocytes # (0-1.0) k/uL BUN (7-17) mg/dL Creatinine (0.52-1.04) mg/dL Glucose (74-99) mg/dL POC Glucose (mg/dL) 159 H 123 H (75-99) mg/dL Total Bilirubin (0.2-1.3) mg/dL AST (14-36) U/L ALT (4-34) U/L Alkaline Phosphatase (38-126) U/L Total Protein (6.3-8.2) g/dL Albumin (3.5-5.0) g/dL Urine Appearance Cloudy H (Clear) Urine Protein 1+ H (Negative) Urine Blood Large H (Negative) Ur Leukocyte Esterase Moderate H (Negative) Urine RBC 156 H (0-5) /hpf Urine WBC 103 H (0-5) /hpf Urine Mucus Rare H (None) /hpf 01/08/21 01/08/21 01/08/21 Range/Units 06:33 07:07 07:07 WBC 18.2 H (3.8-10.6) k/uL RBC 2.99 L (3.80-5.40) m/uL Hgb 9.5 L (11.4-16.0) gm/dL Hct 29.2 L (34.0-46.0) % RDW 16.8 H (11.5-15.5) % Neutrophils # 16.4 H (1.3-7.7) k/uL Lymphocytes # 0.5 L (1.0-4.8) k/uL Monocytes # 1.1 H (0-1.0) k/uL BUN 48 H (7-17) mg/dL Creatinine 1.72 H (0.52-1.04) mg/dL Glucose 114 H (74-99) mg/dL POC Glucose (mg/dL) 123 H (75-99) mg/dL Total Bilirubin 1.9 H (0.2-1.3) mg/dL AST 77 H (14-36) U/L ALT 206 H (4-34) U/L Alkaline Phosphatase 143 H (38-126) U/L Total Protein 6.0 L (6.3-8.2) g/dL Albumin 3.3 L (3.5-5.0) g/dL Urine Appearance (Clear) Urine Protein (Negative) Urine Blood (Negative) Ur Leukocyte Esterase (Negative) Urine RBC (0-5) /hpf Urine WBC (0-5) /hpf Urine Mucus (None) /hpf Microbiology - Last 24 Hours (Table) 01/07/21 10:21 Urine Culture - Preliminary Urine,Voided
[2021-01-08] MEDS: ONDANSETRON 4 MG/2 ML VIAL IVP PRN ×2 (13:48→19:03)
--- NOTE | 2021-01-08 14:32 | PN ---
PROGRESS NOTE Patient is seen for followup for acute kidney injury. Serum creatinine has been improving. The patient has been off of dialysis. Dialysis catheter has been removed. She has had good urine output. Overall she states she is feeling better, although a bit tired. PHYSICAL EXAMINATION: Blood pressure was 151/69, heart rate 84 per minute. She is afebrile. EXAMINATION OF THE HEART: S1, S2. EXAMINATION OF THE LUNGS: Decreased breath sounds at bases. Examination of lower extremities shows trace edema. BELT TURNER exam grossly intact. LABS: Labs show hemoglobin 9.5, sodium 138, potassium 3.5, chloride 105, BUN 48, creatinine 1.72. ASSESSMENT: 1. Acute kidney injury, acute tubular necrosis, currently improved. The patient was temporarily on dialysis, which is now discontinued and the Akash catheter has been removed as well. 2. Coronary artery disease, status post coronary artery bypass surgery and aortic valve replacement on 12/26/2020. 3. Volume overload, currently improved. 4. Acute on chronic diastolic congestive heart failure, currently improved. 5. Anemia, multifactorial. PLAN: Encourage increased oral intake. Continue current antihypertensive regimen. Avoid hypotension. Repeat labs in a.m. MMODL / IJN: [id number] /
[2021-01-08 16:36] LABS: Glucose,Whole Blood 146 mg/dL (75-99)
--- NOTE | 2021-01-08 17:46 | P.PN ---
Subjective Progress Note Date: 01/08/21 Principal diagnosis: Aortic stenosis. Reevaluated today on 01/04/2021, patient remains in the ICU, resting, she is extremely tired and exhausted, weak, she is on 4 L nasal cannula, and her O2 saturation is in the mid 90s. Chest x-ray is basically about the same, she seems to be having a stable left apical pneumothorax, and small amount of left pleural effusion seems to be rebuilding again compared to the chest x-ray that was done right after thoracentesis yesterday. Clinically however the patient is about the same. WBC count today 17.5 hemoglobin is 10.8 electrodes are normal renal profile remains poor with a BUN of 103 creatinine 4.0. Liver enzymes remain elevated but they seem to be trending down, AST is 208 ALT is 495 and PHOSPHATASE IS 254 Patient was reevaluated today on 01/05/2021, remains in the ICU, sitting at a bedside chair, in no distress, on 2 L nasal cannula, O2 saturation is in in the low 90s. Labs this morning were basically unremarkable, hemoglobin is 10.4. Platelets are 114. Electrolytes are normal. Creatinine is 3.43. Liver enzymes are trending down. Femoral dialysis catheter remains in place. Chest x-ray is showing a small left pleural effusion, could not see the left-sided pneumothorax, but it seems to be possibly very apical. Patient was reevaluated today on 01/06/2021, remains in the ICU, sitting at a bedside chair, in no distress patient O2 sat is 94%, she is on 2.5 L nasal cannula. Reviewed her chest x-ray, showed mostly small bilateral pleural effusions, left lower lobe atelectasis, could not see any pneumothorax on this x-ray today. WBC count is 15.6 hemoglobin is 9.3. Electrolytes are normal BUN is 50 creatinine is 1.87, liver enzymes are improving. AST is 84 ALT is 268 and alkaline phosphatase is 176 Patient was reevaluated today on 01/07/2021, she is now on the regular medical floor, resting in bed, and her O2 saturations 95% on room air. Patient has her at bedside, and she tells me today that she feels much better than she felt in the last few days. Chest x-ray is showing a small left-sided pleural effusion not large enough to warrant repeat thoracentesis at this point. Patient had a thoracentesis a few days ago, and I had over 1500 mL of gross blood the drain from her left pleural space. CBC is relatively normal except she does have leukocytosis with WBC count of 19.4. Electrodes are normal. BUN is down to 53 creatinine is down to 1.90. Liver enzymes are trending down with ALT of 274 and alkaline phosphatase of 177. Her urine is showing positive leukocyte esterase, hence I went ahead and ordered a urine culture on this patient, patient has no symptoms, her Acevedo catheter has been removed. Patient is on cefepime for now Progress note dated 01/08/2021. A 65-year-old female, status post aortic valve replacement and single-vessel bypass grafting, postoperative day #13. The patient developed shock liver and cardiogenic shock, with severe metabolic acidosis. In addition, she had a coagulopathy secondary to shock liver, hyperlipidemia, hypothyroidism, CVA, atrial flutter, spontaneous left-sided pneumothorax, acute kidney injury, thrombocytopenia, postoperative blood loss, and moderately severe COPD with an FEV1 that is 56% of predicted. In addition, she had a left-sided hemothorax, status post left-sided thoracentesis on January 03. Needless to say, the patient has had a very corrina postoperative course. Currently, she is resting comfortably. He's hoping to be discharged in the near future. She's on room air, and saturations are 96%. She denies any pain or discomfort. She is not short of breath. White count 18.2, hemoglobin 9.5, hematocrit 29.2, platelet count 194,000. Sodium potassium chloride CO2 all normal. Anion gap normal. BUN is 48, and creatinine is 1.72. Chest revealed small to moderate bilateral effusions, slightly larger on the right than on the left. Objective - Vital Signs Vital signs: Vital Signs Temp 98 F 01/08/21 16:00 Pulse 76 01/08/21 16:00 Resp 18 01/08/21 16:00 BP 121/58 01/08/21 16:00 Pulse Ox 96 01/08/21 16:00 Intake & Output 01/07/21 01/08/21 01/08/21 18:59 06:59 18:59 Intake Total 380 1074 Output Total 275 200 300 Balance 105 -200 774 Weight 62.4 kg Intake: Oral 380 1074 Output: Urine 275 200 300 Other: Voiding Method Toilet Toilet # Voids 1 # Bowel Movements 1 1 ABP, PAP, CO, CI - Last Documented Arterial Blood Pressure 194/64 Pulmonary Artery Pressure 12/5 Cardiac Output 4.2 Cardiac Index 2.6 - Exam No acute distress, oriented 3. Room air saturations are 96%. HEENT examination is grossly unremarkable. Mucous membranes are moist. No oral lesions. Neck supple. Full range of motion. No adenopathy thyromegaly or neck vein distention. Cardiovascular examination reveals regular rhythm rate. S1-S2 normal. No S3 or S4. No discernible murmur noted. Heart rate 75 bpm. Lungs reveal minimal bilateral rhonchi. No crackles or wheezes. Abdomen soft bowel sounds are heard. No masses or tenderness. Extremities are intact. No cyanosis clubbing or edema. Skin is without rash or lesion. Neurologic examination is brief but nonfocal. - Labs CBC & Chem 7: 01/08/21 07:07 01/08/21 07:07 Labs: Abnormal Lab Results - Last 24 Hours (Table) 01/07/21 01/08/21 01/08/21 Range/Units 20:14 06:33 07:07 WBC 18.2 H (3.8-10.6) k/uL RBC 2.99 L (3.80-5.40) m/uL Hgb 9.5 L (11.4-16.0) gm/dL Hct 29.2 L (34.0-46.0) % RDW 16.8 H (11.5-15.5) % Neutrophils # 16.4 H (1.3-7.7) k/uL Lymphocytes # 0.5 L (1.0-4.8) k/uL Monocytes # 1.1 H (0-1.0) k/uL BUN (7-17) mg/dL Creatinine (0.52-1.04) mg/dL Glucose (74-99) mg/dL POC Glucose (mg/dL) 123 H 123 H (75-99) mg/dL Total Bilirubin (0.2-1.3) mg/dL AST (14-36) U/L ALT (4-34) U/L Alkaline Phosphatase (38-126) U/L Total Protein (6.3-8.2) g/dL Albumin (3.5-5.0) g/dL 01/08/21 01/08/21 Range/Units 07:07 16:35 WBC (3.8-10.6) k/uL RBC (3.80-5.40) m/uL Hgb (11.4-16.0) gm/dL Hct (34.0-46.0) % RDW (11.5-15.5) % Neutrophils # (1.3-7.7) k/uL Lymphocytes # (1.0-4.8) k/uL Monocytes # (0-1.0) k/uL BUN 48 H (7-17) mg/dL Creatinine 1.72 H (0.52-1.04) mg/dL Glucose 114 H (74-99) mg/dL POC Glucose (mg/dL) 146 H (75-99) mg/dL Total Bilirubin 1.9 H (0.2-1.3) mg/dL AST 77 H (14-36) U/L ALT 206 H (4-34) U/L Alkaline Phosphatase 143 H (38-126) U/L Total Protein 6.0 L (6.3-8.2) g/dL Albumin 3.3 L (3.5-5.0) g/dL Microbiology - Last 24 Hours (Table) 01/07/21 10:21 Urine Culture - Preliminary Urine,Voided Assessment and Plan Assessment: Postop day #13, status post aortic valve replacement and single-vessel bypass grafting. Routine postoperative ventilator management. Cardiogenic shock, with resultant shock liver, and severe metabolic acidosis, improved. Coagulopathy secondary to shock liver, improved. History of hyperlipidemia. History of hypothyroidism. History of CVA. History of atrial flutter. Spontaneous left pneumothorax. Acute kidney injury, with resultant hemodialysis. Thrombocytopenia. Postoperative blood loss. Prior history of tobacco use, with moderate COPD, FEV1 56% of predicted. 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 Left-sided hemothorax, status post left-sided thoracentesis on January 03, with 1.5 L of gross blood removed. Possible urinary tract infection. Plan: Plan dated 01/08/2021. The patient was moved out of the ICU to the general medical floor. She's been weaned off of oxygen. The patient seems be doing a lot better. She is hoping t o be discharged soon from the hospital. I told her that was up to the cardiothoracic surgeons. From the pulmonary standpoint, she continues to do well. The ultrasound of the chest shows small to moderate bilateral pleural effusions. She's currently not on any oxygen therapy. No plans for thorac entesis at this time, unless suggested by cardiothoracic surgery. Time with Patient: Less than 30
[2021-01-08 20:12] LABS: Glucose,Whole Blood 138 mg/dL (75-99)
[2021-01-08] MEDS: SERTRALINE 25 MG TAB PO SCH (20:47)
[2021-01-08] MEDS: LEVOTHYROXINE 25 MCG TAB PO SCH (20:47)
[2021-01-09 06:12] LABS: Glucose,Whole Blood 120 mg/dL (75-99)
[2021-01-09] MEDS: INSULIN ASPART (NovoLOG) 100 UNIT/ML VIAL SQ SCH ×4 (06:13→20:47)
[2021-01-09] MEDS: ACETAMINOPHEN TAB 325 MG TAB PO PRN ×2 (06:15→17:58)
[2021-01-09] MEDS: ACETYLCYSTEINE 800 MG/4 ML VIAL INHALATION SCH ×3 (07:59→20:02)
[2021-01-09] MEDS: IPRATROPIUM-ALBUTEROL 3 ML NEB INHALATION SCH ×5 (07:59→20:03)
[2021-01-09] MEDS: PANTOPRAZOLE 40 MG/10 ML VIAL IVP SCH ×2 (09:17→21:04)
[2021-01-09] MEDS: amLODIPine 5 MG TAB PO SCH (09:17)
[2021-01-09] MEDS: ASPIRIN 81 MG PO SCH (09:17)
[2021-01-09] MEDS: hydrALAZINE HCL 25 MG TAB PO SCH ×3 (09:17→21:03)
[2021-01-09] MEDS: METOPROLOL TARTRATE 25 MG TAB PO SCH ×2 (09:17→21:03)
[2021-01-09] MEDS: CLOPIDOGREL 75 MG TAB PO SCH (09:17)
[2021-01-09] MEDS: CEFEPIME 1 GM in SODIUM CHLORIDE 0.9% 50 ML IVPB SCH ×2 (09:18→19:43)
[2021-01-09 09:24] LABS: Albumin 3.3 g/dL (3.5-5.0); Potassium 3.4 mmol/L (3.5-5.1); Total Bilirubin 1.6 mg/dL (0.2-1.3)
[2021-01-09 09:32] LABS: Partial Thromboplastin Time 22.6 sec (22.0-30.0); Prothrombin Time 10.5 sec (9.0-12.0)
[2021-01-09 09:46] LABS: Anisocytosis Slight; Basophils % (A) 0 %; Eosinophils # (A) 0.1 k/uL (0-0.7); Eosinophils % (A) 1 %; HCT 29.4 % (34.0-46.0); HGB 9.6 gm/dL (11.4-16.0); Hypochromasia Moderate; Lymphocytes # (A) 0.5 k/uL (1.0-4.8); Lymphocytes % (A) 3 %; MCH 31.9 pg (25.0-35.0); MCHC 32.7 g/dL (31.0-37.0); MCV 97.5 fL (80.0-100.0); Macrocytosis Slight; Mean Platelet Volume 8.3; Monocytes # (A) 0.9 k/uL (0-1.0); Monocytes % (A) 6 %; Neutrophils % (A) 89 %; Platelet Count 237 k/uL (150-450); RBC 3.01 m/uL (3.80-5.40); RDW 16.5 % (11.5-15.5); WBC 14.6 k/uL (3.8-10.6)
[2021-01-09 11:33] VITALS: BMI 23.5
--- NOTE | 2021-01-09 11:36 | P.PN ---
Subjective Progress Note Date: 01/09/21 HISTORY OF PRESENT ILLNESS This is a 65-year-old female patient of Dr. 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 Patient underwent echocardiogram that revealed an ejection fraction of 55-60% with LVH, mild to moderate MR, bicuspid severely calcified aortic valve with moderate aortic regurgitation, moderate tricuspid regurgitation. The patient underwent cardiac julián terizationTEE for further evaluation. The cath showed right coronary artery stenosis in the order of 85% without any significant coronary artery disease. The transthoracic echocardiogram showed severe aortic stenosis. Patient underwent aortic valve replacement and one-vessel CABG with reverse saphenous vein graft off the aorta to the right coronary artery. Patient was admitted into the intensive care unit and was successfully extubated. She is seen today in the intensive care unit. She is up in a recliner. Waban-Kelli in place, mediastinal and right-sided chest tubes in place, Acevedo catheter in place. Patient denies having any chest pain. She states she is not feeling too bad today. She has a little nausea. No abdominal pain. She states she slept okay last night. She has been afebrile, heart rate 71, blood pressure 119/52, pulse ox 90% on 5 L nasal cannula. Blood work this morning reveals W BC 15.2, hemoglobin 8, platelet count 168. Electrolytes normal, BUN 19 and creatinine 0.78. Blood sugars running between 124 and 141. AST 167. Chest x-ray reveals small residual right apical pneumothorax may be present. Chest tubes pulled back slightly from comparison. Waban-Kelli catheter is somewhat peripheral and the right main pulmonary artery region. Cardiomegaly. Small left pleural effusion. 12/28: Patient remains in the intensive care unit. Patient has become hypoten sive with low urine output, elevated lactic acid, anemia, liver enzyme elevation and generalized anasarca. Patient is been started on dopamine, Primacor and is status post albumin and is status post 1 unit packed RBCs this morning. Urine output is improving. She is on BiPAP. Patient complains of generalized not feeling well and shortness of breath. Repeat CXR reports slight increase in mild left hilar and left basilar edema and/or atelectasis. Small pleural effusion. WBC 18.7, hemoglobin initially 6.8 and repeat a 0.1. Platelet count 124. INR 2.8. Electrolytes normal. BUN 32 and creatinine 1.53. Blood sugars running in the 140-170s. Total bilirubin 1.9, AST 1140, ALT 662, alkaline phosphatase 30. Amylase and lipase normal. 12/29: She remains in the intensive care unit. She has not been intubated. Her overall condition continues to decline and she is scheduled for dialysis catheter placement to start hemodialysis. She has had virtually no urine output despite being on Lasix drip patient also went into atrial fibrillation and started on digoxin. She remains with right pleural and mediastinal chest tubes are in place. Additional new diagnoses include A. fib with RVR, ischemic bowel suspected, bicytopenia. Patient is awake. She is complaining of chest discomfort. She is not have increased edema. Her temperature has been low down to 96.5. Heart rate 114, blood pressure 122/54, pulse ox 90%. WBC 14.6, hemoglobin 6, platelet count 26. INR 3.3. Electrolytes normal. BUN 53 and creatinine 2.77. Calcium 7.8. Ionized calcium 3.8. Total bilirubin 3, AST 11,442, ALT 3572, alkaline phosphatase 41. She has been ordered for plasma, platelets and RBC transfusions. 12/30: Patient is currently on BiPAP. She had dialysis catheter placed by vascular surgeon yesterday and underwent her first hemodialysis with removal of 3 L. She has had no urine output overnight. She remains with chest tubes in place. Acevedo catheter is in place. Repeat blood work reveals W BC 13.3, hemoglobin 9, platelet count 24. She is scheduled for platelet transfusion today. INR 2.6. BUN 33 creatinine 2.18. Blood sugars are running between 110 and 138. Magnesium 2.2. Potassium 4.3. Total bilirubin 5.0, AST 8066, ALT 2707, alkaline phosphatase 74. Digoxin level II.9. Patient not currently on digoxin. panel monitor sinus rhythm with a bundle branch block. She has been afebrile, heart rate in the 80s, blood pressure 138/52, pulse ox 93%. Cultures no growth at 24 hours. 12/31: Patient is scheduled for repeat dialysis today. She has had 15 mL output overnight of urine. Patient complains of nausea. Reglan changed to scheduled. She states she's had some ice chips. Patient is awake and alert but thinks it's June 2021. She did have a bowel movement this morning. Patient has been afebrile, heart rate in the 80s and 90s, blood pressure 145/72, pulse ox 97% on BiPAP. Repeat blood work reveals WBC 9.7, hemoglobin 8.5, platelet count 25. No plan for platelet transfusion today. INR is 2.3. Sodium 136 otherwise electrolytes are normal. BUN 41 and creatinine 2.58. Ionized calcium 4.1, total bilirubin 7.6, AST 4112, ALT 2017, alkaline phosphatase 94. Blood sugars are running between 96 and 136. PICC line is ordered for tomorrow. 01/01: Patient remains in the intensive care unit. She is now off BiPAP. Patient is starting to make urine at 15-20 mL per hour. Liver function tests are improving. She states that she is feeling a little nausea that comes and goes. She does have Zofran available and Reglan has been changed to when necess patrice. Pulse ox 93% on 3 L nasal cannula, blood pressure 163/75, heart rate 80s, afebrile. WBC 13.7, hemoglobin 9.1, platelet count 33. INR 1.8. Electrolytes normal. BUN 52 and creatinine 3.31. Blood sugars are running between 123 and 143. Ionized calcium 4.4, total bilirubin 11.1, AST 2123, ALT 1484, alkaline phosphatase 128. Chest x-ray reveals diminished lung volumes suspect worsening pulmonary vascular congestion. Increased moderate left pleural effusion with adjacent atelectasis and/or consolidation. Fine linear density projecting across the left apex suspected artifact rather than small pneumothorax. Ultrasound of the chest revealed left pleural effusion pocket 10.4 cm. Patient is status post calcium gluconate. Metoprolol increased to 25 mg twice daily. Patient is off antibiotics. 01/02: Patient is seen today sitting in recliner and her ICU room. She remains with [address] and Acevedo catheter. She has improved urine output. She complains of nausea. Last bowel movement was on December 31. She has been afebrile, heart rate in the 60s, blood pressure 140/74, pulse ox 99% on 3 L nasal cannula. Repeat blood work reveals WBC 18.5, hemoglobin 9.9, platelet count 62. INR 1.4. Sodium 136, BUN 61 and creatinine 3.37. Blood sugars running between 115 and 155. Total bilirubin 11.1, AST 1204, ALT 1176, alkaline phosphatase 179. Repeat chest x-ray reveals continued pulmonary vascular congestion and moderate left effusion with adjacent atelectasis and/or consolidation. Right-sided chest tube. No pneumothorax. Patient underwent dialysis yesterday with removal of 2.2 L. Dialysis treatment on hold for now the patient is followed closely by nephrology. 01/03: Patient remains in intensive care unit. Patient underwent left-sided thoracentesis with removal of 1.5 L. She has increased oxygen need from 3 L to 6 L with pulse ox of94%. Heart rate has been in the 70s, blood pressure 148/78. panel monitor sinus rhythm. 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 Patient has had good urine output with no plan for dialysis today. No plan for Lasix today. Repeat blood work today is showing improvement with white count down to 15.5, hemoglobin 10.3, platelet count 84. INR 1.2. Sodium 135, potassium 3.5, chloride 95, CO2 28, worsening renal function with BUN 85 and creatinine 4.11. Total bilirubin 6.6, AST 568, ALT 867, alkaline phosphatase 256. 01/04: Patient is seen today sitting in recliner. Nephrology is planning to hold dialysis and diuretics today. Patient states that she does not feel bad today. She continues to have nausea off and on. She has her first meal but she is lactose intolerance and this will be addressed in her orders. Repeat chest x- ray reveals diminished size of left apical pneumothorax. Worsening left lower lobe infiltrate and/or pleural effusion. She has had chest tube removed. Acevedo catheter remains in place. WBC 17.5, hemoglobin 10.8. Electrolytes normal. BUN 103 and creatinine 4. AST 208, ALT 495 and alkaline phosphatase 254. All liver function tests are improving. 01/05: The patient remains in the intensive care unit. She is seen today sitting in recliner and appears to be comfortable. Patient states she is pain-free. She denies shortness of breath. She still has Acevedo catheter in place. She states she is not feeling too bad today. Patient has been afebrile,heart rate 76, blood pressure 137/70, pulse ox 92% on 2 L nasal cannula. WBC 15.0, hemoglobin 10.4, platelet count 114. Sodium 132, potassium 3.4, chloride 94, CO2 29, P1 107, creatinine 3.43. Blood sugars running between 100 1220. Total bilirubin 3.4, AST 115, ALT 364, alkaline phosphatase 219. Patient has been seen by physical therapy and occupational therapy and recommend home with homecare. Right femoral dialysis catheter remains in place but if renal function remains stable for the next 24-48 hours, this will be discontinued per nephrology. 01/06: Patient sitting in a chair very comfortable she is not in A. fib currently, still have Acevedo catheter in, physical therapy is limited to her room at this point. Her creatinine has improved with her BUN in the 50s might not need dialysis today and decision will be made by nephrology. Her liver enzymes are significantly down compared to before on blood sugar since was start sliding scale has been running in the low 100. Pain is well controlled currently. 01/07: Patient is out of the ICU, doing slightly better, fully catheter is out her creatinine is slightly but higher but no need for dialysis so far. 01/08: Patient is seen today on the Cardiac Stepdown Unit. He has resting and recliner and appears to be comfortable. She feels like she is getting a little bit stronger but still having shortness of breath with ambulating to the bathroom. Discussed discharge planning with the patient and she wants to go to subacute rehab. She has been afebrile, HR 70s, BP 126/65, PO 95% on RA. CM sinus rhythm, first degree block. WBC 18.2, HGB 9.5, PLT 194. Blood sugars 123-159. IS is only 500 ml. Repeat CXR reveals continued moderate left effusion with adjacent atelectasis and/or consolidation. New small right effusion. Possible developing mild pulmonary vascular congestion. She has been evaluated by Dr. Mckinnon for IP rehab. Patient prefers subacute rehab which is also re commended by therapies. 01/09: Patient has been afebrile, heart rate 76, blood pressure 152/69, pulse ox 94% to 98% on room air. Chest ultrasound done yesterday revealed right pocket of 5.2 cm and left pocket of 4.7 cm. Blood sugars are running between 120 and 146. Repeat chest x-ray report is pending. Patient states that she is feeling much better today. She states she is walking better with physical therapy and feels stronger. She denies having any dizziness or lightheadedness. No chest pain. No nausea. She is anticipating discharge to [facility] for rehab. REVIEW OF SYSTEMS Constitutional: No fever, no chills, no night sweats. No weight change. Reports generalized weakness, reports fatigue reports lethargy. No daytime sleepiness. EENT: No headache. No change in vision, no loss of vision. No loss of Hearing, no dizziness. No nasal drainage or congestion. No epistaxis. No sore throat. Lungs: Reports shortness of breath, cough, no sputum production. No wheezing. Cardiovascular: Reports chest discomfort, reports lower extremity edema. Reports generalized edema. No palpitations. No paroxysmal nocturnal dyspnea. No orthopnea. No lightheadedness or dizziness. No syncopal episodes. Abdominal: No abdominal pain. Eyes intermittent nausea, denies vomiting. No diarrhea. No constipation. No bloody or tarry stools. Reports loss of appetite. Genitourinary: No dysuria, increased frequency, urgency. No urinary retention. Musculoskeletal: No myalgias. Reports muscle weakness, no gait dysfunction, no frequent falls. No back pain. No neck pain. Integumentary: No wounds, no lesions. No rash or pruritus. Neurologic: No aphasia. No facial droop. No change in mentation. No head injury. No headache. No paralysis. No paresthesia. Psychiatric: No depression. No anxiety. Endocrine: Reports abnormal blood sugars. PHYSICAL EXAMINATION Gen: This paradise 65-year-old female. She is resting in recliner, she is on nasal cannula, appears to be comfortable at rest in recliner. HEENT: Head is atraumatic, normocephalic. Pupils equal, round. Sclerae is icteric. NECK: Supple. No JVD. No lymphadenopathy. No thyromegaly. LUNGS: Diminished bilaterally. No wheezes or rhonchi. No intercostal retractions. HEART: Regular rate and rhythm. No murmur. ABDOMEN: Soft. Bowel sounds are present. No masses. No tenderness. EXTREMITIES: No pedal edema. No calf tenderness. Dorsalis pedis palpable bilaterally. NEUROLOGICAL: Patient is awake, alert and oriented x3. Cranial nerves 2 through 12 are grossly intact. ASSESSMENT AND PLAN 1. Aortic valve replacement for severe bicuspid aortic valve stenosis and single-vessel CABG with CVG to RCA. Patient is postop day # 14. Continue current management per cardiothoracic surgery team. 2. Acute kidney injury with chronic kidney disease: Patient was treated with acute kidney failure with hemodialysis possibly secondary to hepatorenal syndrome and hypoperfusion symptoms are better so far. 3. Transaminitis secondary to hypoperfusion and shock liver, liver function are much better today 4. Acute blood loss anemia, expected following surgery. 5. Lactic acidosis secondary to hyperperfusion, improving. 6. A. fib with RVR, paroxysmal atrial fibrillation, converted to sinus rhythm, anticipated with surgery. No anticoagulation. 7. Recurrent abdominal pain with possible ischemic bowel, has improved significantly patient is having bowel movement 8. Leukocytosis: No sign of active infection continue to watch CBC daily 9. Coagulopathy with DIC: Improved so far platelet count are normal. 10. Hypertension. Will control currently on amlodipine 5 mg a day and hydralazine 25 mg 3 times a day and still on metoprolol titrate 25 mg twice a day. 11. Hyperlipidemia. Still off statin at this point was start probably higher dose of atorvastatin. 12. History of CVA 2. No major residual 13. Hypothyroidism. Continue levothyroxine 25 g daily. 14. Recurrent depression. Continue Zoloft 25 mg at bedtime. 15. Degenerative disc disease. 16. Moderate protein calorie malnutrition due to lack of oral intake. Diet changed to lactose free. 17. GI prophylaxis. Protonix 40 mg twice daily. 18. DVT prophylaxis. Off heparin due to thrombocytopenia DISCHARGE PLAN Subacute rehab at [facility] Impression and plan of care have been directed as dictated by the signing physician. Donna Gutierrez nurse practitioner acting as scribe for signing physician. Objective - Vital Signs Vital signs: Vital Signs Temp 97.3 F L 01/09/21 03:46 Pulse 76 01/09/21 08:00 Resp 18 01/09/21 03:46 BP 152/69 01/09/21 03:46 Pulse Ox 94 L 01/09/21 03:46 Intake & Output 01/08/21 01/09/21 01/09/21 18:59 06:59 18:59 Intake Total 1074 50 Output Total 300 401 150 Balance 464 351 150 Weight 62.2 kg Intake: Intake, IV Titration 50 Amount Cefepime 1 gm In Sodium 50 Chloride 0.9% 50 ml @ 12. 5 mls/hr IVPB Q12HR [facility] Rx#:[id number] Oral 1074 Output: Urine 300 400 150 Stool 1 Other: Voiding Method Toilet Toilet # Voids 1 1 # Bowel Movements 1 1 2 ABP, PAP, CO, CI - Last Documented Arterial Blood Pressure 194/64 Pulmonary Artery Pressure 12/5 Cardiac Output 4.2 Cardiac Index 2.6 - Labs CBC & Chem 7: 01/09/21 08:09 01/09/21 08:09 Labs: Abnormal Lab Results - Last 24 Hours (Table) 01/08/21 01/08/21 01/08/21 Range/Units 07:07 07:07 16:35 WBC 18.2 H (3.8-10.6) k/uL RBC 2.99 L (3.80-5.40) m/uL Hgb 9.5 L (11.4-16.0) gm/dL Hct 29.2 L (34.0-46.0) % RDW 16.8 H (11.5-15.5) % Neutrophils # 16.4 H (1.3-7.7) k/uL Lymphocytes # 0.5 L (1.0-4.8) k/uL Monocytes # 1.1 H (0-1.0) k/uL BUN 48 H (7-17) mg/dL Creatinine 1.72 H (0.52-1.04) mg/dL Glucose 114 H (74-99) mg/dL POC Glucose (mg/dL) 146 H (75-99) mg/dL Total Bilirubin 1.9 H (0.2-1.3) mg/dL AST 77 H (14-36) U/L ALT 206 H (4-34) U/L Alkaline Phosphatase 143 H (38-126) U/L Total Protein 6.0 L (6.3-8.2) g/dL Albumin 3.3 L (3.5-5.0) g/dL 01/08/21 01/09/21 Range/Units 20:11 06:10 WBC (3.8-10.6) k/uL RBC (3.80-5.40) m/uL Hgb (11.4-16.0) gm/dL Hct (34.0-46.0) % RDW (11.5-15.5) % Neutrophils # (1.3-7.7) k/uL Lymphocytes # (1.0-4.8) k/uL Monocytes # (0-1.0) k/uL BUN (7-17) mg/dL Creatinine (0.52-1.04) mg/dL Glucose (74-99) mg/dL POC Glucose (mg/dL) 138 H 120 H (75-99) mg/dL Total Bilirubin (0.2-1.3) mg/dL AST (14-36) U/L ALT (4-34) U/L Alkaline Phosphatase (38-126) U/L Total Protein (6.3-8.2) g/dL Albumin (3.5-5.0) g/dL Microbiology - Last 24 Hours (Table) 01/07/21 10:21 Urine Culture - Final Urine,Voided
[2021-01-09 11:41] LABS: Glucose,Whole Blood 111 mg/dL (75-99)
--- NOTE | 2021-01-09 12:07 | XR ---
EXAMINATION TYPE: XR chest 2V DATE OF EXAM: 01/09/2021 COMPARISON: 01/08/2021 INDICATION: Postcardiac surgery, effusion TECHNIQUE: Frontal and lateral views of the chest are obtained. FINDINGS: The heart size is mildly prominent. The pulmonary vasculature is normal. There is a small left pleural effusion. Small right pleural effusion is not excluded. Sternotomy wir es from cardiac valve surgery are evident IMPRESSION: 1. Small approaching moderate left pleural effusion, stable. Minimal right pleural effusion may remai n present.
--- NOTE | 2021-01-09 13:03 | P.PN ---
Subjective Progress Note Date: 01/09/21 Principal diagnosis: Severe bicuspid aortic valve stenosis, single-vessel coronary artery disease. 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 POD #14 aortic valve replacement with a #21 mm Jackson Inspiris bioprosthetic aortic valve. Coronary artery bypass grafting 1 with a reverse saphenous vein graft off the aorta to the right coronary artery. Clip ligation of left atrial appendage with a 35 mm Atriclip. Intraoperative transesophageal echocardiogram. Postoperative acute blood loss anemia, expected due to hemodilution and cardiop ulmonary bypass. Hypotension requiring pressor use, resolved. Acute kidney injury secondary to hypoperfusion requiring initiation of dialysis. Shock liver secondary to hypoperfusion, improving. Lactic acidosis secondary to hypoperfusion, resolved. Hypoxic respiratory failure requiring BiPAP, currently on 4 L oxygen nasal cannula. Thrombocytopenia, resolved. A. fib with RVR, known common occurrence after open heart surgery, currently sinus rhythm. Coagulopathy with DIC, resolved. Left pleural effusion, requiring left thoracentesis. The patient was seen in follow-up today 01/09/2021 at her bedside on the cardiac stepdown unit. Currently the patient is sitting up to the bedside chair, is awake, alert and oriented 3 and is in no acute distress. She denies any complaints of pain although is complaining of some episodes of shortness of breath with walking and activity. An ultrasound of her bilateral chest was completed yesterday for pleural effusions with the right side showing a 5.2 cm pleural effusion pocket and the left side showing a 4.7 pleural effusion pocket. No thoracentesis is planned at this time per pulmonary critical care medicine. Oxygen saturation's are 94% on room air and she is achieving 500 mL on her incentive spirometry. She remains afebrile the last 24 hours. She reports she has been ambulating in the room and up to the bathroom with minimal assistance from nursing staff. Atrial and ventricular epicardial pacemaker wires remain in place and grounded. Remote telemetry showing normal sinus rhythm heart rate 75 BPM. She is anxious to be discharged to an extended care facility for further rehabilitation and is requesting [facility]. Laboratory results this morning remain pending. Her WBC count yesterday was trending down to 18.2 and she remains on cefepime 1 g every 12 hours for an antibiotic antibiotic coverage. Objective - Vital Signs Vital signs: Vital Signs Temp 97.3 F L 01/09/21 03:46 Pulse 76 01/09/21 08:12 Resp 18 01/09/21 03:46 BP 152/69 01/09/21 03:46 Pulse Ox 94 L 01/09/21 03:46 Intake & Output 01/08/21 01/09/21 01/09/21 18:59 06:59 18:59 Intake Total 1074 50 Output Total 300 401 150 Balance 774 -351 -150 Weight 62.2 kg Intake: Intake, IV Titration 50 Amount Cefepime 1 gm In Sodium 50 Chloride 0.9% 50 ml @ 12. 5 mls/hr IVPB Q12HR [facility] Rx#:[id number] Oral 1074 Output: Urine 300 400 150 Stool 1 Other: Voiding Method Toilet Toilet # Voids 1 1 # Bowel Movements 1 1 2 ABP, PAP, CO, CI - Last Documented Arterial Blood Pressure 194/64 Pulmonary Artery Pressure 12/5 Cardiac Output 4.2 Cardiac Index 2.6 - Constitutional General appearance: Present: average body habitus, cooperative, no acute distress - EENT Eyes: Present: normal appearance. Absent: scleral icterus ENT: Present: hearing grossly normal - Neck Details: Neck is supple, no JVD, no lymphadenopathy. - Respiratory Details: Lung sounds essentially clear throughout, diminished bilateral bases left greater than right. Few scattered crackles throughout. No wheezes, or rhonchi. Respirations are symmetrical and nonlabored. Oxygen saturation are 94% on room air. Achieving 500 mL on her incentive spirometry with encouragement. - Cardiovascular Details: Regular rhythm and rate. S1 and S2 present, negative for S3, gallop or murmur. Sternum is stable. Heart hugger is in place and she is demonstrating appropriate use. Knee-high DARBY hose and sequential compression devices in place to bilateral lower extremities. Bedside telemetry showing normal sinus rhythm heart rate 75 BPM. Atrial and ventricular epicardial pacemaker wires remain in place and grounded. - Gastrointestinal Gastrointestinal Comment(s): Abdomen is soft, nontender and nondistended. Active bowel sounds present all 4 abdominal quadrants. No guarding or rigidity. No organomegaly appreciated. Tolerating oral intake. - Genitourinary Genitourinary Comment(s): Continues to void. - Integumentary Integumentary Comment(s): Skin is warm and dry. No clubbing or cyanosis is present. Midline sternal incision is clean, dry and approximated. No drainage or redness is present. Right lower extremity EVH site is clean, dry and approximated. No drainage or redness is present. - Neurologic Neurologic: Present: CNII-XII intact. Absent: focal deficits - Musculoskeletal Musculoskeletal: Present: gait normal, generalized weakness, strength equal bilaterally - Psychiatric Psychiatric: Present: A&O x's 3, appropriate affect, intact judgment & insight - Allied health notes Allied health notes reviewed: nursing - Labs CBC & Chem 7: 01/09/21 08:09 01/09/21 08:09 Labs: Abnormal Lab Results - Last 24 Hours (Table) 01/08/21 01/08/21 01/09/21 Range/Units 16:35 20:11 06:10 POC Glucose (mg/dL) 146 H 138 H 120 H (75-99) mg/dL Microbiology - Last 24 Hours (Table) 01/07/21 10:21 Urine Culture - Final Urine,Voided - Imaging and Cardiology Chest x-ray: report reviewed, image reviewed Assessment and Plan Assessment: 1. Severe bicuspid aortic valve stenosis, status post aortic valve replacement with a #21 mm Jackson Inspiris bioprosthetic aortic valve 2. Single-vessel coronary artery disease, status post coronary artery bypass grafting 1 with a reverse saphenous vein graft aorta to the right coronary artery 3. History of hypertension 4. History of hyperlipidemia 5. History of hypothyroid 6. 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 Right internal carotid artery stenosis 50-79% per carotid duplex 8. Remote history of tobacco abuse 9. Preoperative elevation of her AST and ALT 10. Degenerative arthritis with chronic back pain 11. Family history of colon cancer 12. Postoperative acute blood loss anemia, expected secondary to hemodilution and cardiopulmonary bypass 13. Hypotension requiring pressor use 14. Acute kidney injury secondary to hypoperfusion requiring initiation of dialysis 15. Shock liver secondary to hypoperfusion 16. Lactic acidosis secondary to hypoperfusion 17. Hypoxic respiratory failure requiring BiPAP 18. Thrombocytopenia 19. A. fib with RVR, known common occurrence after open heart surgery, status post exclusion of the left atrial appendage 20. Coagulopathy with DIC 21. Left pleural effusion, status post thoracentesis with 1.5 L of thin seros anguineous drainage drained Plan: 1. Continue low-dose, Plavix aspirin, and beta kiki. Will increase beta kiki as tolerated, currently on metoprolol tartrate 25 mg by mouth twice a day. 2. Discharge planning in place. cellar worker has been consulted and is foll owing. 3. Encourage incentive spirometry use 10 times every hour while awake. Bronchodilators per pulmonary/critical care medicine. 4. Increase activity as tolerated, up to chair for meals, ambulate as tolerated. PT/OT/cardiac rehab following. 5. GI/DVT prophylaxis 6. Will monitor daily labs and chest x-rays. Electrolyte replacement per protocol. 7. Pain control current when necessary orders. 8. Insulin management per primary care service. Patient is not diabetic, hemoglobin A1c 5.4% 9. Continue to record strict accurate intake and output. Daily weights. 10. Nephrology continues to follow, avoid nephrotoxic agents. 11. We will remove her atrial and ventricular epicardial pacemaker wires. Atrial and ventricular epicardial pacemaker wires were removed without incident. she will be will be on bed rest for one hour post PMW removal. 12. Continue to encourage nutrition, continue ensure supplements. 13. Continue cefepime 1 g every 12 hours IV piggyback, monitored WBC count. Patient remains afebrile. Urine culture was negative. 14. Replace potassium per protocol. 15. More recommendations to follow based on patient's progress. Time with Patient: Greater than 30
[2021-01-09] MEDS: POTASSIUM CHLORIDE ER 20 MEQ TAB.ER PO SCH ×2 (13:23→16:35)
--- NOTE | 2021-01-09 13:25 | P.PN ---
Subjective Progress Note Date: 01/09/21 Patient is in the bathroom getting cleaned up this morning when I stopped by. Her platelets are now normal at 237,000. Her white blood cell count is slightly elevated at 14.6 absolute neutrophil count is 13. She is still moderately anemic, she reports no symptoms. Objective - Vital Signs Vital signs: Vital Signs Temp 97.8 F 01/09/21 08:00 Pulse 74 01/09/21 12:13 Resp 20 01/09/21 08:00 BP 134/67 01/09/21 08:00 Pulse Ox 95 01/09/21 08:00 Intake & Output 01/08/21 01/09/21 01/09/21 18:59 06:59 18:59 Intake Total 1074 50 Output Total 300 401 151 Balance 774 -351 -151 Weight 62.2 kg 62.2 kg Intake: Intake, IV Titration 50 Amount Cefepime 1 gm In Sodium 50 Chloride 0.9% 50 ml @ 12. 5 mls/hr IVPB Q12HR [facility] Rx#:[id number] Oral 1074 Output: Urine 300 400 150 Stool 1 1 Other: Voiding Method Toilet Toilet Toilet # Voids 1 1 # Bowel Movements 1 1 1 ABP, PAP, CO, CI - Last Documented Arterial Blood Pressure 194/64 Pulmonary Artery Pressure 12/5 Cardiac Output 4.2 Cardiac Index 2.6 - Constitutional General appearance: Present: average body habitus, cooperative, no acute distress - EENT Eyes: Present: EOMI - Respiratory Details: Respirations unlabored at rest - Musculoskeletal Musculoskeletal: Present: strength equal bilaterally - Psychiatric Psychiatric: Present: A&O x's 3, appropriate affect, intact judgment & insight - Labs CBC & Chem 7: 01/09/21 08:09 01/09/21 08:09 Labs: Abnormal Lab Results - Last 24 Hours (Table) 01/08/21 01/08/21 01/09/21 Range/Units 16:35 20:11 06:10 WBC (3.8-10.6) k/uL RBC (3.80-5.40) m/uL Hgb (11.4-16.0) gm/dL Hct (34.0-46.0) % RDW (11.5-15.5) % Neutrophils # (1.3-7.7) k/uL Lymphocytes # (1.0-4.8) k/uL Potassium (3.5-5.1) mmol/L BUN (7-17) mg/dL Creatinine (0.52-1.04) mg/dL Glucose (74-99) mg/dL POC Glucose (mg/dL) 146 H 138 H 120 H (75-99) mg/dL Total Bilirubin (0.2-1.3) mg/dL AST (14-36) U/L ALT (4-34) U/L Alkaline Phosphatase (38-126) U/L Total Protein (6.3-8.2) g/dL Albumin (3.5-5.0) g/dL 01/09/21 01/09/21 01/09/21 Range/Units 08:09 08:09 11:38 WBC 14.6 H (3.8-10.6) k/uL RBC 3.01 L (3.80-5.40) m/uL Hgb 9.6 L (11.4-16.0) gm/dL Hct 29.4 L (34.0-46.0) % RDW 16.5 H (11.5-15.5) % Neutrophils # 13.0 H (1.3-7.7) k/uL Lymphocytes # 0.5 L (1.0-4.8) k/uL Potassium 3.4 L (3.5-5.1) mmol/L BUN 39 H (7-17) mg/dL Creatinine 1.52 H (0.52-1.04) mg/dL Glucose 127 H (74-99) mg/dL POC Glucose (mg/dL) 111 H (75-99) mg/dL Total Bilirubin 1.6 H (0.2-1.3) mg/dL AST 61 H (14-36) U/L ALT 176 H (4-34) U/L Alkaline Phosphatase 131 H (38-126) U/L Total Protein 6.0 L (6.3-8.2) g/dL Albumin 3.3 L (3.5-5.0) g/dL Microbiology - Last 24 Hours (Table) 01/07/21 10:21 Urine Culture - Final Urine,Voided Assessment and Plan (1) Thrombocytopenia Narrative/Plan: Patient was postoperative valve replacement and CABG 1. Her platelets dropped substantially. Her workup was hit antibody negative. There was evidence to s uggest a slight degree of hemolysis (possibly from extracorporeal circulation?). Currently her coags and fibrinogen are within normal limits, platelets are normal. She remains moderately anemic. No further interventions from a hematology standpoint. We will continue to watch her labs while she is inpatient. Would recommend follow-up with her primary care in regards to her anemia, to ensure recovery to a normal level. Current Visit: Yes Status: Acute Priority: High Code(s): D69.6 - THRO MBOCYTOPENIA, UNSPECIFIED SNOMED Code(s): 310452216
--- NOTE | 2021-01-09 13:53 | P.PN ---
Subjective 12/27/2020 This is a 65-year-old female with a past medical history significant for severe bicuspid aortic valve stenosis, coroanry artery disease, CVA/TIA, hypertension, hyperlipidemia, former nicotine dependence, and hypothyroidism Patient follows in the office with Dr. Lee. We have been asked to see the patient in consultation for postoperative care. Patient is status post aortic valve replacement and CABG 1: SVG to RCA on 12/26/2020. Postop day #1. Chest xray small residual right apical pneumothorax may be present. Cardiomegaly. Small left pleural effusion. Current home cardiac medications include amlodipine 5 mg daily, metoprolol tartrate 12.5 mg twice a day, Lipitor 40 mg daily, and aspirin 81 mg daily FIDEL: 12/15/2020 revealing severe aortic stenosis which is calcific in nature with mild eccentric aortic regurgitation. Mild mitral and tricuspid regurgitation. Biatrial enlargement. No clot in left atrial appendage. No PFO. Normal LV function. Cardiac catheterization: 12/15/2020 revealing 80% lesion of RCA. 12/28/2020: Patient developed hypotension, lactic acidosis, shortness of breath, and increasing oxygen requirement overnight. Patient was placed on a BiPAP. She received sodium bicarb. Hemoglobin is 6.8. Patient received 1 unit packed RBCs. 12/29/2020: On Bipap. Decreased urine output - given IV lasix and subsequently started on a lasix drip. Patient with worsening hypotension- started on vasopressors. Patient also went into afib with RVR. She has been started on Digoxin. Hemoglobin 6.0. Patient is to receive a hemodialysis catheter today and will be started on hemodialysis. 12/30/2020: On BiPAP. Maintaining sinus mechanism on telemetry. Patient underwent hemodialysis yesterday with removal of 3 L. she is also receiving hemodialysis again this morning. She remains on vasopressor support with Agustín-Synephrine. 12/31/2020: On Bipap Patient remains in sinus mechanism on telemetry. Patient's vasopressors have been weaned off. Patient received hemodialysis for the second time yesterday. 01/01/2021: Patient remains off vasopressors. She received hemodialysis yesterday for the third time. She remains in sinus mechanism. Chest x-ray completed this morning revealed diminished lung volumes and suspected worsening pulmonary vascular congestion. Increasing moderate left pleural effusion with adjacent atelectasis and/or consolidation. Fine linear density projecting across the left apex, suspected external artifact rather than a small pneumothorax. Short interval follow-up recommended to reassess. 01/02/2021: She went back into afib yesterday. She remains in afib with controlled ventricular rate this morning. She complains of nausea. She received dialysis yesterday for the 3rd time. No plans for dialysis today but did receive a dose of IV lasix per nephrology. She remains off vasopressors. 01/03/2021: Patient has converted back to sinus rhythm. She remains off vasopressors. She received a dose of IV Lasix yesterday and has been diuresing well. Chest x-ray this morning reveals increasing large left pleural effusion. Small right apical pneumothorax may be present. Patient underwent Left sided thoracentesis by Dr. Pérez with removal of 1.5L blood fluid. 01/07/2021: Patient transferred out of the intensive care unit to the cardiac stepdown unit. 01/09/2021: Patient examined this morning sitting in the chair. She states she had left sided chest/breast pain last night. It felt like a sore pressure, it was non- radiating and non-exertional. She does have some intermittent shortness of breath with movement. She denies shortness of breath. She states her pain was relieved by Tylenol. She is on room air with oxygen saturations greater than 92%. Blood pressure 134/67 Heart rate in the 70s. She is maintaining sinus mechanism on telemetry. HR 70s-80s. Currently being maintained on amlodipine 5 mg daily, aspirin 81 mg daily, Plavix 75 mg daily, hydralazine 25 mg 3 times a day, metoprolol tartrate 25 mg twice a day. Chest Xray- Moderate left pleural effusion, stable. Minimal right pleural effusion. Laboratory data reviewed- WBC 14.6, hemoglobin stable at 9.6, platelets 237, sodium 141, potassium 3.4, serum creatinine 1.52 (1.72 yesterday), Liver enzymes downtrending- AST 61, ALT 176, Alk Phos 131 PHYSICAL EXAM: VITAL SIGNS: Reviewed. GENERAL: Well-developed in no acute distress. HEENT: Head is normocephalic. Pupils are equal, round. Sclerae anicteric. Mucous membranes of the mouth are moist. Neck supple. No JVD or thyromegaly LUNGS: Respirations even and unlabored. Lungs diminished bilaterally. HEART: Regular rate and rhythm. S1 and S2 heard. Heart hugger noted. EXTREMITIES: Normal range of motion. No clubbing or cyanosis. Peripheral pulses intact. DARYB hose noted to bilateral lower extremities. ASSESSMENT: Severe aortic stenosis, s/p bioprosthetic aortic valve replacement, 12/26/2020 Coronary artery disease, s/p CABG x 1 SVG to RCA, 12/26/2020 New onset paroxysmal atrial fibrillation with RVR, currently maintaining sinus mechanism Acute hypoxic respiratory failure, requiring bipap, resolved Thrombocytopenia, resolved Coagulopathy, INR 3.3, resolved Acute blood loss anemia Lactic acidosis, resolved Transaminitis, suspect secondary to hypotension Acute kidney injury Hypertension Hyperlipidemia CVA with residual right-sided blindness Hypothyroidism Former nicotine dependence Large left pleural effusion, status post thoracentesis PLAN: Continue postoperative management per CTS Patient on aspirin 81md daily, Plavix 75mg daily, Amlodipine 5md daily, metoprolol tartrate 25mg BID Potassium was replaced today Statin continues to be on hold due to elevated liver enzymes Continue telemetry monitoring Increase activity as tolerated Encourage use of incentive spirometer Plan is for patient to be discharged to shelter facility once medically cleared Further recommendations pending patient course Nurse practitioner note has been reviewed by physician. Signing provider agrees with the documented findings, assessment, and plan of care. Objective - Vital Signs Vital signs: Vital Signs Temp 97.3 F L 01/09/21 03:46 Pulse 76 01/09/21 08:12 Resp 18 01/09/21 03:46 BP 152/69 01/09/21 03:46 Pulse Ox 94 L 01/09/21 03:46 Intake & Output 01/08/21 01/09/21 01/09/21 18:59 06:59 18:59 Intake Total 1074 50 Output Total 300 401 150 Balance 774 -351 -150 Weight 62.2 kg Intake: Intake, IV Titration 50 Amount Cefepime 1 gm In Sodium 50 Chloride 0.9% 50 ml @ 12. 5 mls/hr IVPB Q12HR [facility] Rx#:[id number] Oral 1074 Output: Urine 300 400 150 Stool 1 Other: Voiding Method Toilet Toilet # Voids 1 1 # Bowel Movements 1 1 2 ABP, PAP, CO, CI - Last Documented Arterial Blood Pressure 194/64 Pulmonary Artery Pressure 12/5 Cardiac Output 4.2 Cardiac Index 2.6 - Labs CBC & Chem 7: 01/09/21 08:09 01/09/21 08:09 Labs: Abnormal Lab Results - Last 24 Hours (Table) 01/08/21 01/08/21 01/09/21 Range/Units 16:35 20:11 06:10 POC Glucose (mg/dL) 146 H 138 H 120 H (75-99) mg/dL Microbiology - Last 24 Hours (Table) 01/07/21 10:21 Urine Culture - Final Urine,Voided
[2021-01-09] MEDS ORDERED: FUROSEMIDE 10 MG/ML 2 ML VIAL IV ONE (15:15)
--- NOTE | 2021-01-09 16:10 | PN ---
PROGRESS NOTE Patient is seen for followup for acute kidney injury. She is currently doing fairly well. She is sitting on a bedside chair. Patient, however, is complaining of shortness of breath which is significantly worse on exertion. She appears to be more short of breath than yesterday. She has had good urine output. Her weight is about the same for the last 3 days. Chest x-ray from today shows small left pleural effusion, minimal right pleural effusion. Pulmonary vasculature was commented on as being normal. PHYSICAL EXAMINATION: On examination today, blood pressure was 134/67, heart rate 78 per minute. Patient is afebrile. EXAMINATION OF THE HEART: S1 and S2. EXAMINATION OF LUNGS: Decreased breath sounds at bases. Bilateral basal crackles are heard. ABDOMEN: Soft, non-tender. Examination of lower extremities shows edema 1+ bilaterally. IT TELECOM TECHNICIAN exam is grossly intact. LABS: Sodium 141, potassium 3.4, chloride 107. CO2 is 22, BUN 39, creatinine 1.52. Hemoglobin 9.6 g/dL. ASSESSMENT: 1. Acute kidney injury, acute tubular necrosis, currently improving. The patient had temporary dialysis. Her dialysis catheter is now removed. She has good urine output. 2. Hypokalemia. Will replace. 3. Status post coronary artery bypass surgery and aortic valve replacement with bioprosthetic valve on 12/26/2020. 4. Acute on chronic diastolic congestive heart failure. 5. Anemia, multifactorial. PLAN: Lasix 20 mg IV push x1. Replace potassium. Repeat labs in a.m. MMODL / IJN: [id number] /
[2021-01-09 16:47] LABS: Glucose,Whole Blood 130 mg/dL (75-99)
--- NOTE | 2021-01-09 17:18 | P.PN ---
Subjective Progress Note Date: 01/09/21 Principal diagnosis: Aortic stenosis. Reevaluated today on 01/04/2021, patient remains in the ICU, resting, she is extremely tired and exhausted, weak, she is on 4 L nasal cannula, and her O2 saturation is in the mid 90s. Chest x-ray is basically about the same, she seems to be having a stable left apical pneumothorax, and small amount of left pleural effusion seems to be rebuilding again compared to the chest x-ray that was done right after thoracentesis yesterday. Clinically however the patient is about the same. WBC count today 17.5 hemoglobin is 10.8 electrodes are normal renal profile remains poor with a BUN of 103 creatinine 4.0. Liver enzymes remain elevated but they seem to be trending down, AST is 208 ALT is 495 and PHOSPHATASE IS 254 Patient was reevaluated today on 01/05/2021, remains in the ICU, sitting at a bedside chair, in no distress, on 2 L nasal cannula, O2 saturation is in in the low 90s. Labs this morning were basically unremarkable, hemoglobin is 10.4. Platelets are 114. Electrolytes are normal. Creatinine is 3.43. Liver enzymes are trending down. Femoral dialysis catheter remains in place. Chest x-ray is showing a small left pleural effusion, could not see the left-sided pneumothorax, but it seems to be possibly very apical. Patient was reevaluated today on 01/06/2021, remains in the ICU, sitting at a bedside chair, in no distress patient O2 sat is 94%, she is on 2.5 L nasal cannula. Reviewed her chest x-ray, showed mostly small bilateral pleural effusions, left lower lobe atelectasis, could not see any pneumothorax on this x-ray today. WBC count is 15.6 hemoglobin is 9.3. Electrolytes are normal BUN is 50 creatinine is 1.87, liver enzymes are improving. AST is 84 ALT is 268 and alkaline phosphatase is 176 Patient was reevaluated today on 01/07/2021, she is now on the regular medical floor, resting in bed, and her O2 saturations 95% on room air. Patient has her at bedside, and she tells me today that she feels much better than she felt in the last few days. Chest x-ray is showing a small left-sided pleural effusion not large enough to warrant repeat thoracentesis at this point. Patient had a thoracentesis a few days ago, and I had over 1500 mL of gross blood the drain from her left pleural space. CBC is relatively normal except she does have leukocytosis with WBC count of 19.4. Electrodes are normal. BUN is down to 53 creatinine is down to 1.90. Liver enzymes are trending down with ALT of 274 and alkaline phosphatase of 177. Her urine is showing positive leukocyte esterase, hence I went ahead and ordered a urine culture on this patient, patient has no symptoms, her Acevedo catheter has been removed. Patient is on cefepime for now Progress note dated 01/08/2021. A 65-year-old female, status post aortic valve replacement and single-vessel bypass grafting, postoperative day #13. The patient developed shock liver and cardiogenic shock, with severe metabolic acidosis. In addition, she had a coagulopathy secondary to shock liver, hyperlipidemia, hypothyroidism, CVA, atrial flutter, spontaneous left-sided pneumothorax, acute kidney injury, thrombocytopenia, postoperative blood loss, and moderately severe COPD with an FEV1 that is 56% of predicted. In addition, she had a left-sided hemothorax, status post left-sided thoracentesis on January 03. Needless to say, the patient has had a very corrina postoperative course. Currently, she is resting comfortably. He's hoping to be discharged in the near future. She's on room air, and saturations are 96%. She denies any pain or discomfort. She is not short of breath. White count 18.2, hemoglobin 9.5, hematocrit 29.2, platelet count 194,000. Sodium potassium chloride CO2 all normal. Anion gap normal. BUN is 48, and creatinine is 1.72. Chest revealed small to moderate bilateral effusions, slightly larger on the right than on the left. Progress note dated 01/09/2021. 65-year-old female, status post aortic valve replacement, and single-vessel bypass grafting, postop day #14. She denies any shortness of breath, chest pain, chest discomfort, cough, wheezing, or phlegm production. She has been weaned to room air. Her saturations are in the mid 90s. White count 14.6, hemoglobin 9.6, hematocrit 29.4, platelet count 237,000. ET INR PTT and fibrinogen are all normal. Sodium 141, potassium 3.4, chlorides 107, CO2 22, anion gap 12, BUN 39, and creatinine 1.52. Albumin 3.3. Chest x-ray reveals small pleural effusions, left greater than right. Objective - Vital Signs Vital signs: Vital Signs Temp 98.7 F 01/09/21 16:00 Pulse 75 01/09/21 16:35 Resp 18 01/09/21 16:00 BP 134/67 01/09/21 16:00 Pulse Ox 94 L 01/09/21 16:00 Intake & Output 01/08/21 01/09/21 01/09/21 18:59 06:59 18:59 Intake Total 1074 50 Output Total 300 401 352 Balance 512 -250 -057 Weight 62.2 kg 62.2 kg Intake: Intake, IV Titration 50 Amount Cefepime 1 gm In Sodium 50 Chloride 0.9% 50 ml @ 12. 5 mls/hr IVPB Q12HR [facility] Rx#:[id number] Oral 1074 Output: Urine 300 400 350 Stool 1 2 Other: Voiding Method Toilet Toilet Toilet # Voids 1 1 # Bowel Movements 1 1 1 ABP, PAP, CO, CI - Last Documented Arterial Blood Pressure 194/64 Pulmonary Artery Pressure 12/5 Cardiac Output 4.2 Cardiac Index 2.6 - Exam No acute distress, oriented 3. Room air saturations are 95%. HEENT examination is grossly unremarkable. Mucous membranes are moist. No oral lesions. Neck supple. Full range of motion. No adenopathy thyromegaly or neck vein distention. Cardiovascular examination reveals regular rhythm rate. S1-S2 normal. No S3 or S4. No discernible murmur noted. Heart rate 75 bpm. Lungs reveal minimal bilateral rhonchi. No crackles or wheezes. Abdomen soft bowel sounds are heard. No masses or tenderness. Extremities are intact. No cyanosis clubbing or edema. Skin is without rash or lesion. Neurologic examination is brief but nonfocal. - Labs CBC & Chem 7: 01/09/21 08:09 01/09/21 08:09 Labs: Abnormal Lab Results - Last 24 Hours (Table) 01/08/21 01/09/21 01/09/21 Range/Units 20:11 06:10 08:09 WBC 14.6 H (3.8-10.6) k/uL RBC 3.01 L (3.80-5.40) m/uL Hgb 9.6 L (11.4-16.0) gm/dL Hct 29.4 L (34.0-46.0) % RDW 16.5 H (11.5-15.5) % Neutrophils # 13.0 H (1.3-7.7) k/uL Lymphocytes # 0.5 L (1.0-4.8) k/uL Potassium (3.5-5.1) mmol/L BUN (7-17) mg/dL Creatinine (0.52-1.04) mg/dL Glucose (74-99) mg/dL POC Glucose (mg/dL) 138 H 120 H (75-99) mg/dL Total Bilirubin (0.2-1.3) mg/dL AST (14-36) U/L ALT (4-34) U/L Alkaline Phosphatase (38-126) U/L Total Protein (6.3-8.2) g/dL Albumin (3.5-5.0) g/dL 01/09/21 01/09/21 01/09/21 Range/Units 08:09 11:38 16:45 WBC (3.8-10.6) k/uL RBC (3.80-5.40) m/uL Hgb (11.4-16.0) gm/dL Hct (34.0-46.0) % RDW (11.5-15.5) % Neutrophils # (1.3-7.7) k/uL Lymphocytes # (1.0-4.8) k/uL Potassium 3.4 L (3.5-5.1) mmol/L BUN 39 H (7-17) mg/dL Creatinine 1.52 H (0.52-1.04) mg/dL Glucose 127 H (74-99) mg/dL POC Glucose (mg/dL) 111 H 130 H (75-99) mg/dL Total Bilirubin 1.6 H (0.2-1.3) mg/dL AST 61 H (14-36) U/L ALT 176 H (4-34) U/L Alkaline Phosphatase 131 H (38-126) U/L Total Protein 6.0 L (6.3-8.2) g/dL Albumin 3.3 L (3.5-5.0) g/dL Microbiology - Last 24 Hours (Table) 01/07/21 10:21 Urine Culture - Final Urine,Voided Assessment and Plan Assessment: Postop day #14, status post aortic valve replacement and single-vessel bypass grafting. Routine postoperative ventilator management. Cardiogenic shock, with resultant shock liver, and severe metabolic acidosis, improved. Coagulopathy secondary to shock liver, improved. History of hyperlipidemia. History of hypothyroidism. History of CVA. History of atrial flutter. Spontaneous left pneumothorax. Acute kidney injury, with resultant hemodialysis. Thrombocytopenia. Postoperative blood loss. Prior history of tobacco use, with moderate COPD, FEV1 56% of predicted. 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 Left-sided hemothorax, status post left-sided thoracentesis on January 03, with 1.5 L of gross blood removed. Possible urinary tract infection. Plan: Plan dated 01/08/2021. The patient was moved out of the ICU to the general medical floor. She's been weaned off of oxygen. The patient seems be doing a lot better. She is hoping to be discharged soon from the hospital. I told her that was up to the cardiothoracic surgeons. From the pulmonary standpoint, she continues to do w ell. The ultrasound of the chest shows small to moderate bilateral pleural effusions. She's currently not on any oxygen therapy. No plans for thoracentesis at this time, unless suggested by cardiothoracic surgery. Plan dated 01/09/2021. Currently, the patient's doing well. She's been moved out of the intensive care unit. She's on room air. Her labs are reviewed. The chest x-ray stable. We will continue to follow. Prognosis is guarded. Her discharge stable be determined by cardiothoracic surgery. Time with Patient: Less than 30
[2021-01-09 20:20] LABS: Glucose,Whole Blood 124 mg/dL (75-99)
[2021-01-09] MEDS: SERTRALINE 25 MG TAB PO SCH (21:03)
[2021-01-09] MEDS: LEVOTHYROXINE 25 MCG TAB PO SCH (21:03)
[2021-01-10] MEDS: ONDANSETRON 4 MG/2 ML VIAL IVP PRN (02:50)
[2021-01-10] MEDS: ACETAMINOPHEN TAB 325 MG TAB PO PRN (02:51)
[2021-01-10 06:13] LABS: Glucose,Whole Blood 135 mg/dL (75-99)
[2021-01-10] MEDS: INSULIN ASPART (NovoLOG) 100 UNIT/ML VIAL SQ SCH ×2 (06:17→13:08)
--- NOTE | 2021-01-10 07:27 | XR ---
EXAMINATION TYPE: XR chest 1V portable DATE OF EXAM: 01/10/2021 HISTORY: Shortness of breath. COMPARISON: 01/09/2021 TECHNIQUE: Single view of the chest is submitted. FINDINGS: Demonstrated are scattered senescent parenchymal change. Patchy perihilar and basilar infiltrates and left-sided effusion all unchanged. The heart is stable. Hilar and mediastinal structures are within normal limits. Degenerative changes are seen of the dorsal spine. IMPRESSION: 1. Patchy perihilar and basilar infiltrates and left-sided effusion all unchanged.
[2021-01-10] MEDS: ASPIRIN 81 MG PO SCH (08:33)
[2021-01-10] MEDS: METOPROLOL TARTRATE 25 MG TAB PO SCH (08:33)
[2021-01-10] MEDS: amLODIPine 5 MG TAB PO SCH (08:34)
[2021-01-10] MEDS: hydrALAZINE HCL 25 MG TAB PO SCH (08:34)
[2021-01-10] MEDS: CLOPIDOGREL 75 MG TAB PO SCH (08:34)
[2021-01-10] MEDS: CEFEPIME 1 GM in SODIUM CHLORIDE 0.9% 50 ML IVPB SCH (08:34)
[2021-01-10] MEDS: PANTOPRAZOLE 40 MG/10 ML VIAL IVP SCH (08:34)
--- NOTE | 2021-01-10 09:36 | P.PN ---
Subjective Progress Note Date: 01/10/21 Principal diagnosis: Severe bicuspid aortic valve stenosis, single-vessel coronary artery disease. 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 POD #15 aortic valve replacement with a #21 mm Jackson Inspiris bioprosthetic aortic valve. Coronary artery bypass grafting 1 with a reverse saphenous vein graft off the aorta to the right coronary artery. Clip ligation of left atrial appendage with a 35 mm Atriclip. Intraoperative transesophageal echocardiogram. Postoperative acute blood loss anemia, expected due to hemodilution and cardiop ulmonary bypass. Hypotension requiring pressor use, resolved. Acute kidney injury secondary to hypoperfusion requiring initiation of hemodialysis. Shock liver secondary to hypoperfusion, improving. Lactic acidosis secondary to hypoperfusion, resolved. Hypoxic respiratory failure requiring BiPAP, currently on 4 L oxygen nasal cannula. Thrombocytopenia, resolved. A. fib with RVR, known common occurrence after open heart surgery, currently sinus rhythm. Coagulopathy with DIC, resolved. Left pleural effusion, requiring left thoracentesis. The patient was seen in follow-up today 01/10/2021 at her bedside on the cardiac stepdown unit. Currently the patient is sitting up to the bedside chair, is awake, alert and oriented 3 and is in no acute distress. She denies any complaints of pain although continues to complain of of some episodes of shortness of breath with walking and activity. She does report that her shortness of breath is somewhat improved today. Oxygen saturations are 95% on room air and she is achieving 500 mL on her incentive spirometry. Her atrial and ventricular epicardial pacemaker wires were removed yesterday without incident. Remote telemetry showing normal sinus rhythm heart rate 73 bpm today. She remained hemodynamically stable and is currently on no inotropic pressure support. She was given a dose of Lasix 20 mg IV 1 yesterday per nephrology rec ommendations. Urine output in the last 8 hours has been adequate with 600 mL. The patient reports that she has been in relating in her room and up to the bathroom with minimal assistance from nursing staff. The patient feels like she is getting stronger each day. Laboratory results this morning remain pending. Chest x-ray report from this morning shows patchy perihilar and basilar infiltrates and left-sided effusion unchanged from yesterday's chest x-ray. The patient remains afebrile and continues on cefepime 1 g every 12 hours IV piggyback for antibiotic coverage. Objective - Vital Signs Vital signs: Vital Signs Temp 98.5 F 01/10/21 04:00 Pulse 66 01/10/21 04:00 Resp 20 01/10/21 04:00 BP 140/70 01/10/21 04:00 Pulse Ox 95 01/10/21 04:00 Intake & Output 01/09/21 01/10/21 01/10/21 18:59 06:59 18:59 Intake Total 290 Output Total 352 602 Balance -352 -312 Weight 62.2 kg 62 kg Intake: Intake, IV Titration 50 Amount Cefepime 1 gm In Sodium 50 Chloride 0.9% 50 ml @ 12. 5 mls/hr IVPB Q12HR [facility] Rx#:[id number] Oral 240 Output: Urine 350 600 Stool 2 2 Other: Voiding Method Toilet Toilet # Voids 1 3 1 # Bowel Movements 1 ABP, PAP, CO, CI - Last Documented Arterial Blood Pressure 194/64 Pulmonary Artery Pressure 12/5 Cardiac Output 4.2 Cardiac Index 2.6 - Constitutional General appearance: Present: average body habitus, cooperative, no acute distress - EENT Eyes: Present: normal appearance. Absent: scleral icterus ENT: Present: hearing grossly normal - Neck Details: Neck is supple, no JVD, no lymphadenopathy. - Respiratory Details: Lung sounds essentially clear to her bilateral upper lobes, diminished bilateral bases left greater than right. No wheezes, rhonchi or crackles. Respirations are symmetrical and nonlabored. Oxygen saturation are 95% on room air. Achieving 500 mL on her incentive spirometry. - Cardiovascular Details: Regular rhythm and rate. S1 and S2 present, negative for S3, gallop or murmur. Sternum is stable. Remote telemetry showing normal sinus rhythm heart rate 73 bpm. Heart hugger is in place and she is demonstrating appropriate use. Knee- high DARBY hose and sequential compression devices in place to bilateral ovaries. No edema present. - Gastrointestinal Gastrointestinal Comment(s): Abdomen soft, nontender and nondistended. Active bowel sounds present in all 4 quadrants. No guarding or rigidity. Tolerating oral intake. - Genitourinary Genitourinary Comment(s): Continues to void, 600 mL of urine output last 8 hours. - Integumentary Integumentary Comment(s): Skin is warm and dry. No clubbing or cyanosis is present. Midline sternal incision is clean, dry and proximal. No drainage or redness is present. Right lower extremity EVH site is clean, dry and approximated. No drainage witnesses present. - Neurologic Neurologic: Present: CNII-XII intact. Absent: focal deficits - Musculoskeletal Musculoskeletal: Present: gait normal, generalized weakness, strength equal bilaterally - Psychiatric Psychiatric: Present: A&O x's 3, appropriate affect, intact judgment & insight - Allied health notes Allied health notes reviewed: nursing - Labs CBC & Chem 7: 01/09/21 08:09 01/09/21 08:09 Labs: Abnormal Lab Results - Last 24 Hours (Table) 01/09/21 01/09/21 01/09/21 Range/Units 08:09 08:09 11:38 WBC 14.6 H (3.8-10.6) k/uL RBC 3.01 L (3.80-5.40) m/uL Hgb 9.6 L (11.4-16.0) gm/dL Hct 29.4 L (34.0-46.0) % RDW 16.5 H (11.5-15.5) % Neutrophils # 13.0 H (1.3-7.7) k/uL Lymphocytes # 0.5 L (1.0-4.8) k/uL Potassium 3.4 L (3.5-5.1) mmol/L BUN 39 H (7-17) mg/dL Creatinine 1.52 H (0.52-1.04) mg/dL Glucose 127 H (74-99) mg/dL POC Glucose (mg/dL) 111 H (75-99) mg/dL Total Bilirubin 1.6 H (0.2-1.3) mg/dL AST 61 H (14-36) U/L ALT 176 H (4-34) U/L Alkaline Phosphatase 131 H (38-126) U/L Total Protein 6.0 L (6.3-8.2) g/dL Albumin 3.3 L (3.5-5.0) g/dL 01/09/21 01/09/21 01/10/21 Range/Units 16:45 20:19 06:11 WBC (3.8-10.6) k/uL RBC (3.80-5.40) m/uL Hgb (11.4-16.0) gm/dL Hct (34.0-46.0) % RDW (11.5-15.5) % Neutrophils # (1.3-7.7) k/uL Lymphocytes # (1.0-4.8) k/uL Potassium (3.5-5.1) mmol/L BUN (7-17) mg/dL Creatinine (0.52-1.04) mg/dL Glucose (74-99) mg/dL POC Glucose (mg/dL) 130 H 124 H 135 H (75-99) mg/dL Total Bilirubin (0.2-1.3) mg/dL AST (14-36) U/L ALT (4-34) U/L Alkaline Phosphatase (38-126) U/L Total Protein (6.3-8.2) g/dL Albumin (3.5-5.0) g/dL - Imaging and Cardiology Chest x-ray: report reviewed, image reviewed Assessment and Plan Assessment: 1. Severe bicuspid aortic valve stenosis, status post aortic valve replacement with a #21 mm Jackson Inspiris bioprosthetic aortic valve 2. Single-vessel coronary artery disease, status post coronary artery bypass grafting 1 with a reverse saphenous vein graft aorta to the right coronary artery 3. History of hypertension 4. History of hyperlipidemia 5. History of hypothyroid 6. 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 Right internal carotid artery stenosis 50-79% per carotid duplex 8. Remote history of tobacco abuse 9. Preoperative elevation of her AST and ALT 10. Degenerative arthritis with chronic back pain 11. Family history of colon cancer 12. Postoperative acute blood loss anemia, expected secondary to hemodilution and cardiopulmonary bypass 13. Hypotension requiring pressor use 14. Acute kidney injury secondary to hypoperfusion requiring initiation of dialysis 15. Shock liver secondary to hypoperfusion 16. Lactic acidosis secondary to hypoperfusion 17. Hypoxic respiratory failure requiring BiPAP 18. Thrombocytopenia 19. A. fib with RVR, known common occurrence after open heart surgery, status post exclusion of the left atrial appendage 20. Coagulopathy with DIC 21. Left pleural effusion, status post thoracentesis with 1.5 L of thin serosanguineous drainage drained Plan: 1. Continue low-dose, Plavix aspirin, and beta kiki. Will increase beta kiki as tolerated, currently on metoprolol tartrate 25 mg by mouth twice a day. 2. Discharge planning in place. farmworker rice has been consulted and is following. 3. Encourage incentive spirometry use 10 times every hour while awake. Bronchodilators per pulmonary/critical care medicine. 4. Increase activity as tolerated, up to chair for meals, ambulate as tolerated. PT/OT/cardiac rehab following. 5. GI/DVT prophylaxis 6. Will monitor daily labs and chest x-rays. Electrolyte replacement per protocol. 7. Pain control current when necessary orders. 8. Insulin management per primary care service. Patient is not diabetic, hemog lobin A1c 5.4% 9. Continue to record strict accurate intake and output. Daily weights. 10. Nephrology continues to follow, avoid nephrotoxic agents. Lasix 20 mg IV 1 given yesterday 01/09/2021 per nephrology recommendations. 11. Anticipate discharge to extended care facility in the next 24-48 hours. Insurance authorization pending. 12. Continue to encourage nutrition, continue ensure supplements. 13. Continue cefepime 1 g every 12 hours IV piggyback, monitored WBC count. Patient remains afebrile. Urine culture was negative. 14. More recommendations to follow based on patient's progress. Time with Patient: Greater than 30
--- NOTE | 2021-01-10 10:05 | CDI ---
Documentation Clarification Form Date: 01/10/2021 09:47:21 AM From: Felicia Joshua CCS, CCDS Admit Date: 12/26/2020 05:44:00 AM Patient Name: Monique Silva Visit Number: [id number] Discharge Date: ATTENTION: The Clinical Documentation Specialists (CDI) and [facility] Coding Staff appreciate your assistance in clarifying documentation. Please respond to the clarification below the line at the bottom and electronically sign. The CDI & [facility] Coding staff will review the response and follow-up if needed. Please note: Queries are made part of the Legal Health Record. If you have any questions, please contact the author of this message via ITS. Dr. Marly Cline: Unspecified CKD is documented in the Medical Management Progress Notes on 01/06, 01/07, 01/08 & 01/09. Additional clarification regarding the stage of CKD is requested. History/Risk Factors per the 12/27 Medical Management Consult: CA with right eye blindness, Hypertension, Hyperlipidemia, Hypothyroidism, Recurrent Depression, Former smoker. Clinical Indicators: Admitted for elective CABG and AVR on 12/26 for calcified aortic valve with moderate aortic regurgitation & stenosis and CAD. LAB: 12/26 BUN: 14. Creatinine: 0.54. GFR >90 12/27 BUN: 19 - 26. Creatinine: 0.78 0 1.40. GFR 79 - 39 01/05 BUN 107. Creatinine: 3.43. GFR 13 Historical GFR: No previous GFR record noted. Treatment Postoperatively : INH Duoneb, IV Cefazolin, IV Tylenol 100 mls @ 400 mls/hr q6H, Heparin sq, 12/27: po Wolverine q4H PRN, INH Duoneb, po Aspirin, po Plavix, IV Protonix, IV Lasix 10 mg x1, IV Calcium Gluconate x1, IV Na Bicarb 50 mls x2, IV Dopamine, IV Dextrose. 01/05: po Kcl, IV Lasix 60 mg x1, po Plavix 75 mg, IV Albumin 240 mls @ 250 mls/hr x1, IV Cefepime 12/29 Hemodialysis catheter inserted with subsequent Hemodialysis 12/29, 12/30, 12/31, 01/01 & 01/05. Please clarify the stage of the CKD, if known: [ ] CKD ruled out [ ] CKD Stage 1 (GFR > 90) [ ] CKD Stage 2 (GFR 60-89) [ ] CKD Stage 3 (GFR 30-59) [ ] CKD Stage 3a (GFR 45-59) [ ] CKD Stage 3b (GFR 30-44) [ ] CKD Stage 4 (GFR 15-29) [ ] CKD Stage 5 (GFR <15) [ ] Other, please specify [ ] Unable to determine (Template Last revised: November 2020) no ckd, MTDD
--- NOTE | 2021-01-10 10:41 | CDI ---
Documentation Clarification Form Date: 01/10/2021 10:24:00 AM From: Felicia Joshua CCS, CCDS Admit Date: 12/26/2020 05:44:00 AM Patient Name: Monique Silva Visit Number: [id number] Discharge Date: ATTENTION: The Clinical Documentation Specialists (CDI) and [facility] Coding Staff appreciate your assistance in clarifying documentation. Please respond to the clarification below the line at the bottom and electronically sign. The CDI & [facility] Coding staff will review the response and follow-up if needed. Please note: Queries are made part of the Legal Health Record. If you have any questions, please contact the author of this message via ITS. Dr. Leo Wolff: Per the 01/01 Pulmonary/Critical Care Progress Note: "Chest x-ray today showed a left-sided pneumothorax and good sized left- sided pleural effusion, discussed this issue with thoracic surgery planned to observe for now, no plans for thoracentesis or chest tube placement. Impression: Spontaneous Left-sided pneumothorax, exact etiology is not clear, with left pleural effusion, thoracic surgery is aware, prefer to wait rather than chest tube placement or thoracentesis. Patients Admitting & Postop Diagnosis 12/26 OR Note: Bicuspid aortic valve stenosis. Coronary artery disease. 12/26 Procedures: 1.Aortic valve replacement with a #21 mm Jackson Inspiris bioprosthetic aortic valve. 2.Coronary artery bypass grafting x1 with reverse saphenous vein graft off the aorta to the right coronary artery. 3.Clip ligation of the left atrial appendage with a 35 mm AtriClip. 4.Intraoperative transesophageal echocardiogram. History/Risk Factors per the 12/27 Medical Management Consult: CA with right eye blindness, Hypertension, Hyperlipidemia, Hypothyroidism, Recurrent Depression, Former smoker. Clinical Indicators: Admitted for elective CABG and AVR on 12/26 for calcified aortic valve with moderate aortic regurgitation & stenosis and CAD. 12/26 VS: T 95.9, P 62 - 59, R 18 - 12, BP 135/77, PO 97 RA 01/01 VS: T 97.4, P 74, R 16, BP 152/82, PO 96 3Lnc 12/26 CXR: Postop changes. There may be a component of volume overload although findings may be due to low lung volume, there is likely basilar atelectasis, difficult to exclude small effusion. 01/01 CXR: Diminishing lung volumes and suspected worsening pulmonary vascular congestion. Increasing moderate left pleural effusion with adjacent atelectasis and/or consolidation. Fine linear density projecting across the left apex, suspected external artifact rather than a small pneumothorax. 01/01 CXR: Left side marked for possible thoracentesis. 01/03 Left side thoracentesis for left side hemothorax. Treatment Postoperatively : INH Duoneb, IV Cefazolin, IV Tylenol 100 mls @ 400 mls/hr q6H, Heparin sq, 12/27: po [place] q4H PRN, INH Duoneb, po Aspirin, po Plavix, IV Protonix, IV Lasix 10 mg x1, IV Calcium Gluconate x1, IV Na Bicarb 50 mls x2, IV Dopamine, IV Dextrose. 01/05: po Kcl, IV Lasix 60 mg x1, po Plavix 75 mg, IV Albumin 240 mls @ 250 mls/hr x1, IV Cefepime What relationship, if any, exists between the diagnosis of [insert dx] and the procedure: [ ] Left side pleural effusion and pneumothorax/hemothorax is a complication of surgical procedure [ ] Left side pleural effusion and pneumothorax/hemothorax is an expected outcome of the surgical procedure [ ] Left side pleural effusion and pneumothorax/hemothorax is related to patients co-morbid condition(s), please specify: & not a complication of the procedure [ ] Other please specify: [ ] Unable to determine (Template Last Revised: December 2020) Left side pleural effusion and hemothorax is related to patient's co-morbid conditions of coagulapathy with DIC component, and thrombocytopenia, and is not a complication of the surgery MTDD
[2021-01-10] MEDS: ACETYLCYSTEINE 800 MG/4 ML VIAL INHALATION SCH ×2 (10:42→11:01)
[2021-01-10] MEDS: IPRATROPIUM-ALBUTEROL 3 ML NEB INHALATION SCH ×3 (10:45→16:26)
[2021-01-10 10:51] VITALS: BP 125/60; RESP 18; TEMP 98
[2021-01-10 11:43] LABS: Glucose,Whole Blood 147 mg/dL (75-99)
[2021-01-10 11:45] LABS: Albumin 3.1 g/dL (3.5-5.0); Calcium 8.9 mg/dL (8.4-10.2); Potassium 3.9 mmol/L (3.5-5.1); Total Bilirubin 1.4 mg/dL (0.2-1.3); Total Protein 5.8 g/dL (6.3-8.2)
[2021-01-10 12:24] LABS: Anisocytosis Slight; Basophils # (A) 0.1 k/uL (0-0.2); Basophils % (A) 0 %; Eosinophils # (A) 0.2 k/uL (0-0.7); Eosinophils % (A) 1 %; HCT 27.4 % (34.0-46.0); HGB 9.2 gm/dL (11.4-16.0); Hypochromasia Moderate; Lymphocytes # (A) 0.6 k/uL (1.0-4.8); Lymphocytes % (A) 4 %; MCH 32.8 pg (25.0-35.0); MCHC 33.4 g/dL (31.0-37.0); MCV 98.1 fL (80.0-100.0); Macrocytosis Slight; Mean Platelet Volume 8.6; Monocytes # (A) 1.2 k/uL (0-1.0); Monocytes % (A) 9 %; Neutrophils # (A) 11.9 k/uL (1.3-7.7); Neutrophils % (A) 85 %; Platelet Count 292 k/uL (150-450); RDW 16.5 % (11.5-15.5)
--- NOTE | 2021-01-10 12:28 | P.PN ---
Subjective Progress Note Date: 01/10/21 Principal diagnosis: Thrombocytopenia postcardiac procedures Patient is in chair this a.m. She states that she is feeling better. Her incisional site pain is well-controlled. She is getting up and around her room. She denies any bleeding Objective - Vital Signs Vital signs: Vital Signs Temp 98 F 01/10/21 08:00 Pulse 84 01/10/21 11:17 Resp 18 01/10/21 08:00 BP 125/60 01/10/21 08:00 Pulse Ox 94 L 01/10/21 08:00 Intake & Output 01/09/21 01/10/21 01/10/21 18:59 06:59 18:59 Intake Total 290 Output Total 352 602 1 Balance -352 -312 -1 Weight 62.2 kg 62 kg Intake: Intake, IV Titration 50 Amount Cefepime 1 gm In Sodium 50 Chloride 0.9% 50 ml @ 12. 5 mls/hr IVPB Q12HR [facility] Rx#:[id number] Oral 240 Output: Urine 350 600 Stool 2 2 1 Other: Voiding Method Toilet Toilet Toilet # Voids 1 3 1 # Bowel Movements 1 ABP, PAP, CO, CI - Last Documented Arterial Blood Pressure 194/64 Pulmonary Artery Pressure 12/5 Cardiac Output 4.2 Cardiac Index 2.6 - Constitutional General appearance: Present: average body habitus, cooperative, no acute distress - EENT Eyes: Present: anicteric sclerae, EOMI ENT: Present: hearing grossly normal - Respiratory Details: Respirations even and unlabored - Neurologic Neurologic: Present: CNII-XII intact - Psychiatric Psychiatric: Present: A&O x's 3, appropriate affect, intact judgment & insight - Labs CBC & Chem 7: 01/09/21 08:09 01/10/21 10:00 Labs: Abnormal Lab Results - Last 24 Hours (Table) 01/09/21 01/09/21 01/10/21 Range/Units 16:45 20:19 06:11 Chloride (98-107) mmol/L Carbon Dioxide (22-30) mmol/L BUN (7-17) mg/dL Creatinine (0.52-1.04) mg/dL POC Glucose (mg/dL) 130 H 124 H 135 H (75-99) mg/dL Total Bilirubin (0.2-1.3) mg/dL AST (14-36) U/L ALT (4-34) U/L Total Protein (6.3-8.2) g/dL Albumin (3.5-5.0) g/dL 01/10/21 01/10/21 Range/Units 10:00 11:35 Chloride 111 H (98-107) mmol/L Carbon Dioxide 20 L (22-30) mmol/L BUN 35 H (7-17) mg/dL Creatinine 1.19 H (0.52-1.04) mg/dL POC Glucose (mg/dL) 147 H (75-99) mg/dL Total Bilirubin 1.4 H (0.2-1.3) mg/dL AST 56 H (14-36) U/L ALT 161 H (4-34) U/L Total Protein 5.8 L (6.3-8.2) g/dL Albumin 3.1 L (3.5-5.0) g/dL Assessment and Plan (1) Thrombocytopenia Narrative/Plan: Patient was postoperative valve replacement and CABG 1. Her platelets dropped substantially. Her workup was hit antibody negative. Her platelets have recovered spontaneously as she is healing. There was evidence to suggest a slight degree of hemolysis (possibly from extracorporeal circulation?). CBC for today still pending. Her hemoglobin was low on admission. She has received 4 units of packed red blood cells so, no iron studies right now as they will be an accurate. her hemoglobin is currently stable. No further interventions from a hematology standpoint. We will continue to watch her labs while she is inpatient. Would recommend follow-up with her PCP in regards to her anemia, to ensure recovery to a normal level and eventually evaluate iron studies to see if patient needs a supplement. Patient is on aspirin and Plavix post cardiac procedures, plt adequate for the same. Current Visit: Yes Status: Acute Priority: High Code(s): D69.6 - THROMBOCYTOPENIA, UNSPECIFIED SNOMED Code(s): 975006066
--- NOTE | 2021-01-10 13:35 | P.PN ---
Subjective Progress Note Date: 01/10/21 HISTORY OF PRESENT ILLNESS This is a 65-year-old female patient of Dr. 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 Patient underwent echocardiogram that revealed an ejection fraction of 55-60% with LVH, mild to moderate MR, bicuspid severely calcified aortic valve with moderate aortic regurgitation, moderate tricuspid regurgitation. The patient underwent cardiac julián terizationTEE for further evaluation. The cath showed right coronary artery stenosis in the order of 85% without any significant coronary artery disease. The transthoracic echocardiogram showed severe aortic stenosis. Patient underwent aortic valve replacement and one-vessel CABG with reverse saphenous vein graft off the aorta to the right coronary artery. Patient was admitted into the intensive care unit and was successfully extubated. She is seen today in the intensive care unit. She is up in a recliner. Oakley-Kelli in place, mediastinal and right-sided chest tubes in place, Acevedo catheter in place. Patient denies having any chest pain. She states she is not feeling too bad today. She has a little nausea. No abdominal pain. She states she slept okay last night. She has been afebrile, heart rate 71, blood pressure 119/52, pulse ox 90% on 5 L nasal cannula. Blood work this morning reveals W BC 15.2, hemoglobin 8, platelet count 168. Electrolytes normal, BUN 19 and creatinine 0.78. Blood sugars running between 124 and 141. AST 167. Chest x-ray reveals small residual right apical pneumothorax may be present. Chest tubes pulled back slightly from comparison. Oakley-Kelli catheter is somewhat peripheral and the right main pulmonary artery region. Cardiomegaly. Small left pleural effusion. 12/28: Patient remains in the intensive care unit. Patient has become hypoten sive with low urine output, elevated lactic acid, anemia, liver enzyme elevation and generalized anasarca. Patient is been started on dopamine, Primacor and is status post albumin and is status post 1 unit packed RBCs this morning. Urine output is improving. She is on BiPAP. Patient complains of generalized not feeling well and shortness of breath. Repeat CXR reports slight increase in mild left hilar and left basilar edema and/or atelectasis. Small pleural effusion. WBC 18.7, hemoglobin initially 6.8 and repeat a 0.1. Platelet count 124. INR 2.8. Electrolytes normal. BUN 32 and creatinine 1.53. Blood sugars running in the 140-170s. Total bilirubin 1.9, AST 1140, ALT 662, alkaline phosphatase 30. Amylase and lipase normal. 12/29: She remains in the intensive care unit. She has not been intubated. Her overall condition continues to decline and she is scheduled for dialysis catheter placement to start hemodialysis. She has had virtually no urine output despite being on Lasix drip patient also went into atrial fibrillation and started on digoxin. She remains with right pleural and mediastinal chest tubes are in place. Additional new diagnoses include A. fib with RVR, ischemic bowel suspected, bicytopenia. Patient is awake. She is complaining of chest discomfort. She is not have increased edema. Her temperature has been low down to 96.5. Heart rate 114, blood pressure 122/54, pulse ox 90%. WBC 14.6, hemoglobin 6, platelet count 26. INR 3.3. Electrolytes normal. BUN 53 and creatinine 2.77. Calcium 7.8. Ionized calcium 3.8. Total bilirubin 3, AST 11,442, ALT 3572, alkaline phosphatase 41. She has been ordered for plasma, platelets and RBC transfusions. 12/30: Patient is currently on BiPAP. She had dialysis catheter placed by vascular surgeon yesterday and underwent her first hemodialysis with removal of 3 L. She has had no urine output overnight. She remains with chest tubes in place. Acevedo catheter is in place. Repeat blood work reveals W BC 13.3, hemoglobin 9, platelet count 24. She is scheduled for platelet transfusion today. INR 2.6. BUN 33 creatinine 2.18. Blood sugars are running between 110 and 138. Magnesium 2.2. Potassium 4.3. Total bilirubin 5.0, AST 8066, ALT 2707, alkaline phosphatase 74. Digoxin level II.9. Patient not currently on digoxin. machine i cutter sinus rhythm with a bundle branch block. She has been afebrile, heart rate in the 80s, blood pressure 138/52, pulse ox 93%. Cultures no growth at 24 hours. 12/31: Patient is scheduled for repeat dialysis today. She has had 15 mL output overnight of urine. Patient complains of nausea. Reglan changed to scheduled. She states she's had some ice chips. Patient is awake and alert but thinks it's June 2021. She did have a bowel movement this morning. Patient has been afebrile, heart rate in the 80s and 90s, blood pressure 145/72, pulse ox 97% on BiPAP. Repeat blood work reveals WBC 9.7, hemoglobin 8.5, platelet count 25. No plan for platelet transfusion today. INR is 2.3. Sodium 136 otherwise electrolytes are normal. BUN 41 and creatinine 2.58. Ionized calcium 4.1, total bilirubin 7.6, AST 4112, ALT 2017, alkaline phosphatase 94. Blood sugars are running between 96 and 136. PICC line is ordered for tomorrow. 01/01: Patient remains in the intensive care unit. She is now off BiPAP. Patient is starting to make urine at 15-20 mL per hour. Liver function tests are improving. She states that she is feeling a little nausea that comes and goes. She does have Zofran available and Reglan has been changed to when necess patrice. Pulse ox 93% on 3 L nasal cannula, blood pressure 163/75, heart rate 80s, afebrile. WBC 13.7, hemoglobin 9.1, platelet count 33. INR 1.8. Electrolytes normal. BUN 52 and creatinine 3.31. Blood sugars are running between 123 and 143. Ionized calcium 4.4, total bilirubin 11.1, AST 2123, ALT 1484, alkaline phosphatase 128. Chest x-ray reveals diminished lung volumes suspect worsening pulmonary vascular congestion. Increased moderate left pleural effusion with adjacent atelectasis and/or consolidation. Fine linear density projecting across the left apex suspected artifact rather than small pneumothorax. Ultrasound of the chest revealed left pleural effusion pocket 10.4 cm. Patient is status post calcium gluconate. Metoprolol increased to 25 mg twice daily. Patient is off antibiotics. 01/02: Patient is seen today sitting in recliner and her ICU room. She remains with [address] and Acevedo catheter. She has improved urine output. She complains of nausea. Last bowel movement was on December 31. She has been afebrile, heart rate in the 60s, blood pressure 140/74, pulse ox 99% on 3 L nasal cannula. Repeat blood work reveals WBC 18.5, hemoglobin 9.9, platelet count 62. INR 1.4. Sodium 136, BUN 61 and creatinine 3.37. Blood sugars running between 115 and 155. Total bilirubin 11.1, AST 1204, ALT 1176, alkaline phosphatase 179. Repeat chest x-ray reveals continued pulmonary vascular congestion and moderate left effusion with adjacent atelectasis and/or consolidation. Right-sided chest tube. No pneumothorax. Patient underwent dialysis yesterday with removal of 2.2 L. Dialysis treatment on hold for now the patient is followed closely by nephrology. 01/03: Patient remains in intensive care unit. Patient underwent left-sided thoracentesis with removal of 1.5 L. She has increased oxygen need from 3 L to 6 L with pulse ox of94%. Heart rate has been in the 70s, blood pressure 148/78. machine i cutter sinus rhythm. 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 Patient has had good urine output with no plan for dialysis today. No plan for Lasix today. Repeat blood work today is showing improvement with white count down to 15.5, hemoglobin 10.3, platelet count 84. INR 1.2. Sodium 135, potassium 3.5, chloride 95, CO2 28, worsening renal function with BUN 85 and creatinine 4.11. Total bilirubin 6.6, AST 568, ALT 867, alkaline phosphatase 256. 01/04: Patient is seen today sitting in recliner. Nephrology is planning to hold dialysis and diuretics today. Patient states that she does not feel bad today. She continues to have nausea off and on. She has her first meal but she is lactose intolerance and this will be addressed in her orders. Repeat chest x- ray reveals diminished size of left apical pneumothorax. Worsening left lower lobe infiltrate and/or pleural effusion. She has had chest tube removed. Acevedo catheter remains in place. WBC 17.5, hemoglobin 10.8. Electrolytes normal. BUN 103 and creatinine 4. AST 208, ALT 495 and alkaline phosphatase 254. All liver function tests are improving. 01/05: The patient remains in the intensive care unit. She is seen today sitting in recliner and appears to be comfortable. Patient states she is pain-free. She denies shortness of breath. She still has Acevedo catheter in place. She states she is not feeling too bad today. Patient has been afebrile,heart rate 76, blood pressure 137/70, pulse ox 92% on 2 L nasal cannula. WBC 15.0, hemoglobin 10.4, platelet count 114. Sodium 132, potassium 3.4, chloride 94, CO2 29, P1 107, creatinine 3.43. Blood sugars running between 100 1220. Total bilirubin 3.4, AST 115, ALT 364, alkaline phosphatase 219. Patient has been seen by physical therapy and occupational therapy and recommend home with homecare. Right femoral dialysis catheter remains in place but if renal function remains stable for the next 24-48 hours, this will be discontinued per nephrology. 01/06: Patient sitting in a chair very comfortable she is not in A. fib currently, still have Acevedo catheter in, physical therapy is limited to her room at this point. Her creatinine has improved with her BUN in the 50s might not need dialysis today and decision will be made by nephrology. Her liver enzymes are significantly down compared to before on blood sugar since was start sliding scale has been running in the low 100. Pain is well controlled currently. 01/07: Patient is out of the ICU, doing slightly better, fully catheter is out her creatinine is slightly but higher but no need for dialysis so far. 01/08: Patient is seen today on the Cardiac Stepdown Unit. He has resting and recliner and appears to be comfortable. She feels like she is getting a little bit stronger but still having shortness of breath with ambulating to the bathroom. Discussed discharge planning with the patient and she wants to go to subacute rehab. She has been afebrile, HR 70s, BP 126/65, PO 95% on RA. CM sinus rhythm, first degree block. WBC 18.2, HGB 9.5, PLT 194. Blood sugars 123-159. IS is only 500 ml. Repeat CXR reveals continued moderate left effusion with adjacent atelectasis and/or consolidation. New small right effusion. Possible developing mild pulmonary vascular congestion. She has been evaluated by Dr. Mckinnon for IP rehab. Patient prefers subacute rehab which is also re commended by therapies. 01/09: Patient has been afebrile, heart rate 76, blood pressure 152/69, pulse ox 94% to 98% on room air. Chest ultrasound done yesterday revealed right pocket of 5.2 cm and left pocket of 4.7 cm. Blood sugars are running between 120 and 146. Repeat chest x-ray report is pending. Patient states that she is feeling much better today. She states she is walking better with physical therapy and feels stronger. She denies having any dizziness or lightheadedness. No chest pain. No nausea. She is anticipating discharge to [facility] for rehab. 01/10: Patient remains on the cardiac stepdown unit. She continues to state she feels better each day. She states she is not going to rehab today as they are waiting for insurance authorization. She denies chest pain. Patient has been afebrile, heart rate 80, blood pressure 125/60, pulse ox 94% on room air. WBC 14, hemoglobin 9.2, platelet count 292. Sodium 141, potassium 3.9, chloride 111, CO2 20, BUN 35 and creatinine 1.19. Blood sugars running between 124 and 147. Anticipate discharge in the next 24 hours. REVIEW OF SYSTEMS Constitutional: No fever, no chills, no night sweats. No weight change. Reports generalized weakness, reports fatigue denies lethargy. No daytime sleepiness. EENT: No headache. No change in vision, no loss of vision. No loss of Hearing, no dizziness. No nasal drainage or congestion. No epistaxis. No sore throat. Lungs: Reports shortness of breath, cough, no sputum production. No wheezing. Cardiovascular: Reports chest discomfort, reports lower extremity edema. Denies generalized edema. No palpitations. No paroxysmal nocturnal dyspnea. No orthopnea. No lightheadedness or dizziness. No syncopal episodes. Abdominal: No abdominal pain. Eyes intermittent nausea, denies vomiting. No diarrhea. No constipation. No bloody or tarry stools. Reports loss of appetite. Genitourinary: No dysuria, increased frequency, urgency. No urinary retention. Musculoskeletal: No myalgias. Reports muscle weakness, no gait dysfunction, no frequent falls. No back pain. No neck pain. Integumentary: No wounds, no lesions. No rash or pruritus. Neurologic: No aphasia. No facial droop. No change in mentation. No head injury. No headache. No paralysis. No paresthesia. Psychiatric: No depression. No anxiety. Endocrine: Reports abnormal blood sugars. PHYSICAL EXAMINATION Gen: This paradise 65-year-old female. She is resting in recliner, appears to be comfortable at rest in recliner. HEENT: Head is atraumatic, normocephalic. Pupils equal, round. Sclerae is icteric. NECK: Supple. No JVD. No lymphadenopathy. No thyromegaly. LUNGS: Diminished bilaterally. No wheezes or rhonchi. No intercostal retractions. HEART: Regular rate and rhythm. No murmur. ABDOMEN: Soft. Bowel sounds are present. No masses. No tenderness. EXTREMITIES: No pedal edema. No calf tenderness. Dorsalis pedis palpable bilaterally. NEUROLOGICAL: Patient is awake, alert and oriented x3. Cranial nerves 2 through 12 are grossly intact. ASSESSMENT AND PLAN 1. Aortic valve replacement for severe bicuspid aortic valve stenosis and single-vessel CABG with CVG to RCA. Patient is postop day # 15. Continue current management per cardiothoracic surgery team. 2. Acute kidney injury with chronic kidney disease: Patient was treated with acute kidney failure with hemodialysis possibly secondary to hepatorenal syndrome and hypoperfusion symptoms are better so far. 3. Transaminitis secondary to hypoperfusion and shock liver, liver function are much better today 4. Acute blood loss anemia, expected following surgery. 5. Lactic acidosis secondary to hyperperfusion, improving. 6. A. fib with RVR, paroxysmal atrial fibrillation, converted to sinus rhythm, anticipated with surgery. No anticoagulation. 7. Recurrent abdominal pain with possible ischemic bowel, has improved significantly patient is having bowel movement 8. Leukocytosis: No sign of active infection continue to watch CBC daily 9. Coagulopathy with DIC: Improved so far platelet count are normal. 10. Hypertension. Will control currently on amlodipine 5 mg a day and hydralazine 25 mg 3 times a day and still on metoprolol titrate 25 mg twice a day. 11. Hyperlipidemia. Still off statin at this point was start probably higher dose of atorvastatin. 12. History of CVA 2. No major residual 13. Hypothyroidism. Continue levothyroxine 25 g daily. 14. Recurrent depression. Continue Zoloft 25 mg at bedtime. 15. Degenerative disc disease. 16. Moderate protein calorie malnutrition due to lack of oral intake. Diet changed to lactose free. 17. GI prophylaxis. Protonix 40 mg twice daily. 18. DVT prophylaxis. Off heparin due to thrombocytopenia DISCHARGE PLAN Subacute rehab at [facility] Impression and plan of care have been directed as dictated by the signing physician. Donna Gutierrez nurse practitioner acting as scribe for signing physician. Objective - Vital Signs Vital signs: Vital Signs Temp 98 F 01/10/21 08:00 Pulse 76 01/10/21 08:00 Resp 18 01/10/21 08:00 BP 125/60 01/10/21 08:00 Pulse Ox 94 L 01/10/21 08:00 Intake & Output 01/09/21 01/10/21 01/10/21 18:59 06:59 18:59 Intake Total 290 Output Total 352 602 Balance -352 -312 Weight 62.2 kg 62 kg Intake: Intake, IV Titration 50 Amount Cefepime 1 gm In Sodium 50 Chloride 0.9% 50 ml @ 12. 5 mls/hr IVPB Q12HR [facility] Rx#:[id number] Oral 240 Output: Urine 350 600 Stool 2 2 Other: Voiding Method Toilet Toilet # Voids 1 3 1 # Bowel Movements 1 ABP, PAP, CO, CI - Last Documented Arterial Blood Pressure 194/64 Pulmonary Artery Pressure 12/5 Cardiac Output 4.2 Cardiac Index 2.6 - Labs CBC & Chem 7: 01/10/21 10:00 01/10/21 10:00 Labs: Abnormal Lab Results - Last 24 Hours (Table) 01/09/21 01/09/21 01/09/21 Range/Units 11:38 16:45 20:19 POC Glucose (mg/dL) 111 H 130 H 124 H (75-99) mg/dL 01/10/21 Range/Units 06:11 POC Glucose (mg/dL) 135 H (75-99) mg/dL
--- NOTE | 2021-01-10 14:05 | P.DS ---
Providers Date of admission: 12/26/20 05:44 Expected date of discharge: 01/10/21 (\) Attending physician: Leo Wolff Consults: 12/26/20 13:03 Consult Physician Routine Consulting Provider: Inocencio Ott Consult Reason/Comments: Mobile Home Servicer Consult: post cardiac surgery Do you want consulting provider notified?: Yes Consult Physician Routine Consulting Provider: Cade Correia Consult Reason/Comments: med mgmt; [facility] patient Do you want consulting provider notified?: Yes Consult Physician Routine Consulting Provider: Willi Centeno Consult Reason/Comments: Lab Scientist Consult: post cardiac surgery Do you want consulting provider notified?: Yes 12/29/20 06:47 Consult Physician Stat Consulting Provider: Marly Cline Consult Reason/Comments: ramon Do you want consulting provider notified?: Yes 12/29/20 08:15 Consult Physician Urgent Consulting Provider: Bridger Torres Consult Reason/Comments: elevated lft, coags post cardiac surgery Do you want consulting provider notified?: Yes 01/05/21 14:47 Consult Physician Routine Consulting Provider: Javi Mckinnon Consult Reason/Comments: Evaluation for inpatient rehab Do you want consulting provider notified?: Yes Primary care physician: [facility] Course: FINAL DIAGNOSIS: 1. Severe bicuspid aortic valve stenosis, status post aortic valve replacement with a #21 mm Jackson Inspiris bioprosthetic aortic valve 2. Single-vessel coronary artery disease, status post coronary artery bypass grafting 1 with a reverse greater saphenous vein graft off the aorta to the right coronary artery 3. History of hypertension 4. History of hyperlipidemia 5. History of hypothyroid 6. 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 Right internal carotid artery stenosis 50-79% per carotid duplex 8. Remote history of tobacco abuse 9. Preoperative elevation of her AST and ALT 10. Degenerative arthritis with chronic back pain 11. Family history of colon cancer 12. Postoperative acute blood loss anemia, expected secondary to hemodilution and cardiopulmonary bypass 13. Hypotension requiring pressor use, resolved 14. Acute kidney injury secondary to hypoperfusion requiring initiation of hemodialysis 15. Shock liver secondary to hypoperfusion 16. Lactic acidosis secondary to hypoperfusion, resolved 17. Hypoxic respiratory failure requiring BiPAP, resolved currently on room air 18. Thrombocytopenia, resolved 19. A. fib with RVR, known common occurrence after open heart surgery, status post exclusion of the left atrial appendage 20. Coagulopathy with DIC, resolved 21. Left sided hemothorax, status post thoracentesis with 1.5 L of thin serosanguineous drainage drained on 01/03/2021 PRINCIPAL PROCEDURE: 1. Aortic valve replacement with a #21 mm Jackson bioprosthetic aortic valve. 2. Coronary artery bypass grafting 1 with a reverse greater saphenous vein graft off the aorta to the right coronary artery. 3. Clip ligation of the left atrial appendage with a 35 mm Atriclip. 4. Intraoperative transesophageal echocardiogram 5. Ultrasound-guided cannulation of the right femoral vein for placement of non-tunneled hemodialysis catheter performed by Dr. Spring on 12/29/2020. 6. Left-sided thoracentesis performed by Dr. Pérez on 01/03/2021 for left sided hemothorax with 1.5 L of serosanguineous drainage drained. HISTORY OF PRESENT ILLNESS: this is a 65-year-old female patient who is followed by Dr. Dago Li on an outpatient basis for her primary care needs. She also follows with Dr. VIKAS Lee for her cardiology needs. She has a past medical history significant for a known heart murmur with aortic valve stenosis which has been followed by an echocardiogram 4 years, hypertension, hyperlipidemia, hypothyroid, CVA to the right eye in 2004 followed by a TIA a few years later, remote history of tobacco dependence and a family history of cancer. Recently, she has been experiencing progressive shortness of breath with activity which has worsened over a couple of month period. A transthoracic echocardiogram was completed at Dr. Lee's office which demonstrated a normal left ventricular size and function with an ejection fraction of 55-60%, mild left ventricular hypertrophy, no regional wall motion abnormalities, mild to moderate mitral valve regurgitation, bicuspid severely calcified aortic valve with a valve area measuring 0.6 cm, a mean gradient of 73 mmHg, moderate aortic valve regurgitation, moderate tricuspid valve regurgitation and mild pulmonic valve regurgitation with mild pulmonary hypertension. For further evaluation she underwent a heart catheterization and transesophageal echocardiogram. The heart catheterization results demonstrated a right coronary artery ostial stenosis of 85% without any other significant coronary artery disease. The transesophageal echocardiogram results showed severe aortic valve stenosis, mild aortic valve regurgitation, her aortic valve area measuring 0.5 cm with a peak/mean gradients 135 and 45 mmHg, mild mitral valve regurgitation, biatrial enlargement, mild pulmonary hypertension, and normal left ventricular function. Subsequently, due to the patient's symptoms and findings on her cardiac catheterization and transesophageal echocardiogram results a consult was placed to Dr. Leo Wolff from cardiothoracic surgery. Dr. Wolff met with the patient and her , discussed with the patient the findings on her above-mentioned studies, discussed treatment options including aortic valve replacement and coronary artery bypass grafting surgery. Risks and benefits of surgery were discussed with the patient including the STS risk score and knowing and understanding the risks the patient wishes to receive with an elective surgery. HOSPITAL COURSE: On 12/26/2020 the patient was admitted to the hospital and after obtaining consent was taken to the preoperative area, prepared in the usual fashion and was subsequently taken to the operating room where Dr. Leo Wolff performed an elective aortic valve replacement with a #21 mm Jackson bioprosthetic aortic valve, a coronary artery bypass grafting 1 with a reverse greater saphenous vein graft off the aorta to the right coronary artery, clip ligation of the left atrial appendage with a 35 mm Atriclip and an intraoperative transesophageal echocardiogram. Upon completion of the surgery the patient was transferred to the cardiovascular intensive care unit where she was recovered and monitored hemodynamically. She was successfully extubated, although had somewhat of a stormy recovery with some episodes of hypotension, acute injury requiring initiation of hemodialysis, hypoxic respiratory failure requiring use of BiPAP, a left sided hemothorax requiring a thoracentesis and atrial fibrillation which were all treated accordingly. Subsequently, all lines, tubes and supportive drips were discontinued when appropriate and she was transferred to the cardiac stepdown unit for further rehabilitation and monitoring. Her oxygen was titrated down, she has been maintaining good oxygen saturations on room air, she continued to work with physical/occupational therapy and cardiac rehab, she has been tolerating a normal diet, her pain has been well controlled without narcotics and she is ready to be discharged to [facility] fdc facility for further rehabilitation and monitoring on postoperative day #15. She has received written and verbal instructions regarding her medications, activity restrictions, signs and symptoms requiring physician notification and her follow-up appointment. She is not being discharged home with a statin at this time due to some elevation in her liver enzymes. Her liver enzymes will be followed up on an outpatient basis and once they have normalized she will be restarted on a statin. COMPLICATIONS: As mentioned above the patient did have somewhat of a stormy were covering which was complicated by some episodes of hypotension, acute injury requiring initiation of hemodialysis, hypoxic respiratory failure requiring use of BiPAP, a left sided hemothorax requiring a thoracentesis and atrial fibrillation which were all treated accordingly. CONSULTATIONS: 1. Dr. VIKAS Lee for cardiology management. 2. Dr. Ott for pulmonary and mechanical ventilator management. 3. Dr. Boston for medical management. 4. Dr. Spring for hemodialysis catheter placement. 5. Dr. Cline for nephrology management. 6. Dr. Mckinnon for inpatient rehab evaluation. Plan - Discharge Summary Discharge Rx Participant: Yes New Discharge Prescriptions: New Aspirin 81 mg PO DAILY chew Ipratropium-Albuterol Nebulize [Duoneb 0.5 mg-3 mg/3 ml Soln] 3 ml INHALATION RT-QID ml Ipratropium-Albuterol Nebulize [Duoneb 0.5 mg-3 mg/3 ml Soln] 3 ml INHALATION RT-Q2H PRN ml PRN Reason: Shortness Of Breath Or Wheezing Furosemide [Lasix] 20 mg PO Q48H tab Metoprolol Tartrate [Lopressor] 25 mg PO BID tab amLODIPine [Norvasc] 5 mg PO DAILY tab Clopidogrel [Plavix] 75 mg PO DAILY tab Sertraline [Zoloft] 25 mg PO HS tab hydrALAZINE HCL [Apresoline] 25 mg PO TID tab bisacodyL [Dulcolax] 10 mg RECTAL DAILY PRN supp PRN Reason: Constipation Potassium Chloride ER [K-Dur 20] 20 meq PO Q48H tab.er.prt Cefepime [Maxipime] 1 gm IVPB Q12HR 3 Days vial Acetylcysteine [Mucomyst] 200 mg INHALATION RT-TID vial Pantoprazole Sodium [Protonix] 40 mg PO AC-BRKFST 30 Days tablet.dr Cumminsnosidegeno-Docusate Sodium [Senokot-S] 2 each PO HS PRN tab PRN Reason: Constipation Levothyroxine Sodium [Synthroid] 25 mcg PO HS tab Acetaminophen Tab [Tylenol] 650 mg PO Q4HR PRN tab PRN Reason: Fever And/ Or Pain Discontinued Aspirin EC [Ecotrin Low Dose] 81 mg PO HS HYDROcodone/APAP 5-325MG [[place] 5-325] 1 tab PO BID PRN PRN Reason: Pain amLODIPine [Norvasc] 5 mg PO HS Metoprolol Tartrate [Lopressor] 12.5 mg PO BID Sertraline [Zoloft] 25 mg PO HS Baclofen 10 mg PO HS Atorvastatin [Lipitor] 40 mg PO HS Levothyroxine Sodium [Synthroid] 25 mcg PO HS Ibuprofen [Motrin] 800 mg PO BID PRN PRN Reason: Pain Discharge Medication List Acetaminophen Tab [Tylenol] 650 mg PO Q4HR PRN tab 01/10/21 [Rx] Acetylcysteine [Mucomyst] 200 mg INHALATION RT-TID vial 01/10/21 [Rx] Aspirin 81 mg PO DAILY chew 01/10/21 [Rx] Cefepime [Maxipime] 1 gm IVPB Q12HR 3 Days vial 01/10/21 [Rx] Clopidogrel [Plavix] 75 mg PO DAILY tab 01/10/21 [Rx] Furosemide [Lasix] 20 mg PO Q48H tab 01/10/21 [Rx] Ipratropium-Albuterol Nebulize [Duoneb 0.5 mg-3 mg/3 ml Soln] 3 ml INHALATION RT-Q2H PRN ml 01/10/21 [Rx] Ipratropium-Albuterol Nebulize [Duoneb 0.5 mg-3 mg/3 ml Soln] 3 ml INHALATION RT-QID ml 01/10/21 [Rx] Levothyroxine Sodium [Synthroid] 25 mcg PO HS tab 01/10/21 [Rx] Metoprolol Tartrate [Lopressor] 25 mg PO BID tab 01/10/21 [Rx] Pantoprazole Sodium [Protonix] 40 mg PO AC-BRKFST 30 Days tablet.dr 01/10/21 [Rx] Potassium Chloride ER [K-Dur 20] 20 meq PO Q48H tab.er.prt 01/10/21 [Rx] Sennosides-Docusate Sodium [Senokot-S] 2 each PO HS PRN tab 01/10/21 [Rx] Sertraline [Zoloft] 25 mg PO HS tab 01/10/21 [Rx] amLODIPine [Norvasc] 5 mg PO DAILY tab 01/10/21 [Rx] bisacodyL [Dulcolax] 10 mg RECTAL DAILY PRN supp 01/10/21 [Rx] hydrALAZINE HCL [Apresoline] 25 mg PO TID tab 01/10/21 [Rx] Follow up Appointment(s)/Referral(s): Sariah Lee MD [STAFF PHYSICIAN] - 2 Weeks (Please call Dr. Lee's office when discharged from inpatient rehab for a follow-up appointment.) [facility],Cardiac [NON-STAFF] - 1 Week (You will receive a phone call for a cardiac rehab eval approximately 4-6 weeks after surgery) [facility], [NON-STAFF] - 1-2 Days Leo Wolff MD [STAFF PHYSICIAN] - 01/19/21 2:00 pm () Dago Li MD [Primary Care Provider] - 2 Weeks (Please call Dr. Li's office when discharged from inpatient rehab for a follow-up appointment.) Inocencio Ott MD [STAFF PHYSICIAN] - 2 Weeks (Please call Dr. Ott's office when discharged from inpatient rehab for a follow-up appointment.) Ambulatory/Diagnostic Orders: Complete Blood Count w/diff [LAB.AMB] Time Frame: 01/11/21, Facility: [facility], Location: [facility] Comprehensive Metabolic Panel [LAB.AMB] Time Frame: 01/11/21, Facility: [facility], Location: [facility] Activity/Diet/Wound Care/Special Instructions: DISCHARGE INSTRUCTIONS: 1. No driving for 4 weeks, or until physician gives their ok. 2. The patient should sleep in their own bed, no medical bed needed. 3. Stairs are not an issue. If the bedroom is upstairs, it is advised that the patient go up at night and down in the morning for the first week. Go slowly, using handrail and take 1 step at a time. 4. DARBY hose are to be worn for 30 days or until physician discontinues. 5. Heart hugger is to be worn 100% of the time until physician discontinues.(except when showering) 6. No lifting, pushing, or pulling more than 10 pounds for 12 weeks. The physician will advise of any restriction changes. 7. The patient is expected to continue the prescribed walking program. 8. Continue pain control per as needed orders. 9. Continue with incentive spirometry and splinting/heart hugger until otherwise directed by the physician. 10. Must shower daily using liquid antibacterial soap and a separate white washcloth for each individual incision. 11. Routine sternal incision care. No powders, lotions, ointments on incisions. No dressings are necessary on incisions unless they are draining. Dermabond tape is to remain on sternal incision until surgeon follow-up. 12. Please call surgeon/YARD HOSTLER for temp greater than 101 F or purulent drainage from incisions. 13. All prescriptions given by surgeon for 30 days. Refills need to be filled through cable tv installer/primary care physician. 14. A Red armband has been placed on the patient. It should be worn for 30 days post surgery and will be removed by the cardiac surgeons. If an ER visit is necessary, please make sure the number on the Red armband is called. 15. You have been referred to and are expected to begin Cardiac Rehab in approximately 4-6 weeks. 16. Avoid nephrotoxic agents. 17. Continue to monitor liver enzymes and once normalized will need to be restarted on a statin. HOME HEALTH SERVICES/inpatient rehab TO PROVIDE: RN SKILLED HOME CARE SERVICES FOR POST-OP SURGICAL PATIENTS WITH THE FOLLOWING: Coronary Artery Bypass Surgery (CABG), Mitral Valve Replacem ent/Repair ( MVR), Aortic Valve Replacement/Repair (AVR) RN TO CONTINUE EDUCATION FROM ``ROAD TO A HEALTH HEART PATIENT EDUCATION MANUAL (GIVEN TO PATIENT IN THE HOSPITAL) MEDICATION RECONCILIATION WITH EDUCATION NEEDED ON FIRST HOME VISIT EMPHASIZE IMPORTANCE OF WEARING BREAST SUPPORT/HEART HUGGER ENCOURAGE USE OF INCENTIVE SPIROMETER 10 X EVERY HOUR WHILE AWAKE ENCOURAGE UTILIZATION OF LOWER EXTREMITY COMPRESSION STOCKINGS/DARBY HOSE and ELEVATE LEGS ABOVE LEVEL OF HEART WHILE AT REST. ENCOURAGE AMBULATION 3-5x/day INCREASING TOLERATES, WHILE AVOIDING EXTREMES IN TEMPERATURE FREQUENCY: RN TO OPEN THE PATIENT WITHIN 24 HOURS OF DISCHARGE FROM THE HOSPITAL WITH TELEHEALTH INSTALLED AT [facility], RN TO VISIT 2-3 X A WEEK FOR 4 WEEKS ESTABLISHED BY PATIENT NEEDS. LABORATORY: CBC, CMP TO BE DRAWN ON THE THIRD DAY HOME, (RAN STAT) FAX RESULTS TO [phone]. TELEHEALTH PARAMETERS: WEIGHT: NOTIFY MD OF WEIGHT GAIN OF 2 LBS IN 24 HOURS OR 5 LBS IN ONE WEEK HR: NOTIFY MD OF HR <55 BPM OR HR>100 BPM BP: NOTIFY MD IF BP <90/55 OR BP>140/100 O2 SAT: NOTIFY MD IF PO2<93% ON ROOM AIR SEND TELEHEALTH REPORT TO LOSS PREVENTION RESEARCH ENGINEER AND CARDIOVASCULAR SURGEON THE FIRST WEEK OF CARE AND THEN BI-WEEKLY. PLEASE ADDITIONALLY COMMUNICATE ANY ABNORMALS AND NEW FINDINGS TO THE SURGEONS OFFICE. For any questions or concerns please call web publisher Sherry @ or Jose Carlos @ Discharge Disposition: TRANSFER TO SNF/ECF
[2021-01-10 14:31] VITALS: PULSE 78
[2021-01-10] MEDS ORDERED: PANTOPRAZOLE 40 MG TABLET PO SCH (17:30)
--- NOTE | 2021-01-10 19:53 | PN ---
PROGRESS NOTE Patient is seen for followup for acute kidney injury, ATN, post coronary artery bypass surgery, needing temporary hemodialysis. Renal function has recovered significantly with creatinine down to 1.19 today. The patient was mildly volume overloaded yesterday and received one dose of IV Lasix. She has improved. Overall she states she is feeling much better. PHYSICAL EXAMINATION: On examination today, blood pressure was 125/60, heart rate 78 per minute. She is afebrile. EXAMINATION OF THE HEART: S1, S2. EXAMINATION OF THE LUNGS: Decreased breath sounds at bases. Abdomen is soft, nontender. Examination of lower extremities shows trace edema. RETIREMENT VILLAGE MANAGER exam grossly intact. LABS: Labs show hemoglobin 9.2, sodium 141, potassium 3.9, chloride 111, BUN 35, creatinine 1.19. ASSESSMENT: 1. Acute kidney injury, acute tubular necrosis, currently significantly improved. 2. Mild volume overload. Will maintain patient on low-dose loop diuretics as outpatient if she is discharged today. 3. Status post coronary artery bypass surgery and aortic valve replacement. 4. Generalized debility. 5. Anemia, multifactorial. PLAN: Maintain low-dose loop diuretics. Replace potassium. Follow up in the office in about 2 weeks post discharge. MMODL / IJN: [id number] /
--- NOTE | 2021-01-10 19:58 | PN ---
PROGRESS NOTE PULMONARY/CRITICAL CARE PROGRESS NOTE: DATE OF SERVICE: January 10, 2021 This is a 65-year-old female, postoperative day #15, status post aortic valve replacement and single-vessel bypass grafting. The patient had a severe and a corrina postoperative hospital course with cardiogenic shock, shock liver, and severe metabolic acidosis, among a number of other things. Currently, she is doing well. She is on room air. The plan is for her to be discharged today. She denies any pain in chest, difficulty breathing, coughing, wheezing or phlegm production. She denies any fever or chills. PHYSICAL EXAMINATION: VITAL SIGNS: Current vital signs are reviewed. Her temperature is 98 degrees. Her respiratory rate is 18. Her heart rate is 78. Her most recent blood pressure was 125/60. GENERAL: She appears in no acute distress. A bit pale. No respiratory difficulty. HEENT: Examination is grossly unremarkable. NECK: Supple. Full range of motion. No adenopathy. Neck veins are flat. CARDIOVASCULAR: Examination reveals regular rhythm and rate. S1, S2 normal. Heart rate mid 70s. No murmur. LUNGS: Reveal mostly clear breath sounds. A few scattered rhonchi. No wheezes or crackles. ABDOMEN: Soft. Bowel sounds are heard. EXTREMITIES: Are intact. No cyanosis, clubbing, or edema. SKIN: Without rash. NEUROLOGIC: Examination is brief but nonfocal. LABS: Labs are reviewed. White count 14, hemoglobin 9.2, hematocrit 27.4, platelet count 292,000. Sodium 141, potassium 3.9, chloride 111, CO2 of 20. Anion gap 10. BUN and creatinine were 35 and 1.19. Microbiology is all negative. The patient had a chest x-ray today which showed a small left-sided pleural effusion and some atelectasis at the right lung base. ASSESSMENT: 1. Postoperative day #15, status post aortic valve replacement and single-vessel bypass grafting. 2. Routine postoperative ventilator management. 3. Cardiogenic shock with resultant shock liver and severe metabolic acidosis, resolved. 4. Coagulopathy secondary to shock liver, resolved. 5. History of hyperlipidemia. 6. History of hypothyroidism. 7. History of cerebrovascular accident. 8. History of atrial flutter. 9. Spontaneous left pneumothorax. 10.Acute kidney injury, with resultant hemodialysis. 11.Thrombocytopenia. 12.Postoperative blood loss. 13.Prior history of tobacco use with moderate chronic obstructive pulmonary disease, FEV1 56% of predicted. 14.History of cerebrovascular accident, 2004. 15.Left-sided hemothorax, status post left-sided thoracentesis on January 03 with 1.5 L of gross blood removed. 16.Possible urinary tract infection. PLAN: The patient seems to be doing relatively well. She will be discharged home today. She will likely follow up with one of my 2 partners in the office. Looking at the x-ray, it appears that she may be need or benefit from a left-sided thoracentesis down the road. Additional recommendations and suggestions are forthcoming. Prognosis is guarded. MMODL / IJN: [id number] /
[2021-01-11] MEDS ORDERED: POTASSIUM CHLORIDE ER 20 MEQ TAB.ER PO SCH (09:00)
[2021-01-11] MEDS ORDERED: FUROSEMIDE 20 MG TAB PO SCH (09:00)
--- NOTE | 2021-01-11 13:03 | CDI ---
Documentation Clarification Form Date: 01/11/21 From: Cherelle Manning Phone: Admit Date: 12/26/2020 05:44:00 AM Patient Name: Moinque Silva Visit Number: [id number] Discharge Date: 01/10/2021 04:27:00 PM ATTENTION: The Clinical Documentation Specialists (CDI) and [facility] Coding Staff appreciate your assistance in clarifying documentation. Please respond to the clarification below the line at the bottom and electronically sign. The CDI & [facility] Coding staff will review the response and follow-up if needed. Please note: Queries are made part of the Legal Health Record. If you have any questions, please contact the author of this message via ITS. Dr. Leo Wolff, Atrial Flutter is documented in 12/29 progress notes. Additional clarification regarding the type of Atrial Flutter is requested. History/Risk factors: S/P aortic valve replacement, CABG X 1, left atrial appendage with AtriClip. Clinical Indicators: She had short runs of atrial flutter with rapid ventricular response,12 episodes. EKG: None on 12/29 Treatment: Digoxin 250 mcg IVP Please clarify the type of Atrial Flutter, if known: [ ] Typical/Type I [ ] Atypical/Type II [ ] Other, please specify [ ] Unable to determine Patient did not have atrial flutter, she had atrial fibrillation which is a known common occurrence after open heart surgery as documented MTDD
== END 2021-01-10 16:27 | DRG 219 ==
LOC: 2ORMAIN 05:44 → 2SICU 13:57 → 3SCARD 01-06 21:04
PROVIDERS: ADMIT Thoracic Surgery (Cardiothoracic Vascular Surgery); ATTEND Thoracic Surgery (Cardiothoracic Vascular Surgery)
PROC: 02L70CK Occlusion of Left Atrial Appendage with Extraluminal Device, Open Approach (ICD-10-PCS; principal; 2020-12-26 08:00)
PROC: 021009W Bypass Coronary Artery, One Artery from Aorta with Autologous Venous Tissue, Open Approach (ICD-10-PCS; principal; 2020-12-26 08:00)
PROC: B246ZZ4 Ultrasonography of Right and Left Heart, Transesophageal (ICD-10-PCS; principal; 2020-12-26 08:00)
PROC: 02RF08Z Replacement of Aortic Valve with Zooplastic Tissue, Open Approach (ICD-10-PCS; principal; 2020-12-26 08:00)
PROC: 5A1221Z Performance of Cardiac Output, Continuous (ICD-10-PCS; principal; 2020-12-26 08:00)
PROC: 06BP4ZZ Excision of Right Saphenous Vein, Percutaneous Endoscopic Approach (ICD-10-PCS; principal; 2020-12-26 08:00)
PROC: 30243N1 Transfusion of Nonautologous Red Blood Cells into Central Vein, Percutaneous Approach (ICD-10-PCS; 2020-12-26 08:00)
PROC: 30243K1 Transfusion of Nonautologous Frozen Plasma into Central Vein, Percutaneous Approach (ICD-10-PCS; 2020-12-26 08:00)
PROC: 30243R1 Transfusion of Nonautologous Platelets into Central Vein, Percutaneous Approach (ICD-10-PCS; 2020-12-26 08:00)
PROC: 0D9670Z Drainage of Stomach with Drainage Device, Via Natural or Artificial Opening (ICD-10-PCS; 2020-12-26 08:00)
PROC: 5A09457 Assistance with Respiratory Ventilation, 24-96 Consecutive Hours, Continuous Positive Airway Pressure (ICD-10-PCS; 2020-12-28)
PROC: 06HY33Z Insertion of Infusion Device into Lower Vein, Percutaneous Approach (ICD-10-PCS; 2020-12-29)
PROC: 5A1D70Z Performance of Urinary Filtration, Intermittent, Less than 6 Hours Per Day (ICD-10-PCS; 2020-12-29)
PROC: 0W9B3ZZ Drainage of Left Pleural Cavity, Percutaneous Approach (ICD-10-PCS; 2021-01-03)
DX: Q23.1 Congenital insufficiency of aortic valve (principal); I50.33 Acute on chronic diastolic (congestive) heart failure; N17.0 Acute kidney failure with tubular necrosis; K72.00 Acute and subacute hepatic failure without coma; J96.01 Acute respiratory failure with hypoxia; D65 Disseminated intravascular coagulation [defibrination syndrome]; R57.0 Cardiogenic shock; R57.1 Hypovolemic shock; A41.9 Sepsis, unspecified organism; K55.9 Vascular disorder of intestine, unspecified; E44.0 Moderate protein-calorie malnutrition; D68.4 Acquired coagulation factor deficiency; E87.4 Mixed disorder of acid-base balance; F33.9 Major depressive disorder, recurrent, unspecified; J98.11 Atelectasis; J94.2 Hemothorax; J91.8 Pleural effusion in other conditions classified elsewhere; J93.82 Other air leak; D62 Acute posthemorrhagic anemia; I48.0 Paroxysmal atrial fibrillation; I27.20 Pulmonary hypertension, unspecified; I11.0 Hypertensive heart disease with heart failure; J44.9 Chronic obstructive pulmonary disease, unspecified; I25.10 Atherosclerotic heart disease of native coronary artery without angina pectoris; E73.9 Lactose intolerance, unspecified; E86.1 Hypovolemia; E87.6 Hypokalemia; T46.0X5A Adverse effect of cardiac-stimulant glycosides and drugs of similar action, initial encounter; G89.29 Other chronic pain; M54.9 Dorsalgia, unspecified; I44.0 Atrioventricular block, first degree; I45.4 Nonspecific intraventricular block; E03.9 Hypothyroidism, unspecified; E78.5 Hyperlipidemia, unspecified; I08.8 Other rheumatic multiple valve diseases; N64.4 Mastodynia; M25.551 Pain in right hip; I69.398 Other sequelae of cerebral infarction; I65.21 Occlusion and stenosis of right carotid artery; M19.90 Unspecified osteoarthritis, unspecified site; H54.61 Unqualified visual loss, right eye, normal vision left eye; Z68.23 Body mass index [BMI] 23.0-23.9, adult; Z79.82 Long term (current) use of aspirin; Z79.890 Hormone replacement therapy; Z79.899 Other long term (current) drug therapy; Z77.22 Contact with and (suspected) exposure to environmental tobacco smoke (acute) (chronic); Z95.5 Presence of coronary angioplasty implant and graft; Z98.891 History of uterine scar from previous surgery; Z87.891 Personal history of nicotine dependence; Z87.39 Personal history of other diseases of the musculoskeletal system and connective tissue; Z87.2 Personal history of diseases of the skin and subcutaneous tissue; Z98.890 Other specified postprocedural states; Z71.3 Dietary counseling and surveillance; Z91.040 Latex allergy status; Z80.0 Family history of malignant neoplasm of digestive organs; Z80.3 Family history of malignant neoplasm of breast; Z80.49 Family history of malignant neoplasm of other genital organs
CPT/HCPCS: 71045; 71046; 76604; 80053; 80162; 81001; 82140; 82150; 82330; 82533; 82805; 83010; 83605; 83625; 83690; 83735; 84100; 84132; 84145; 85025; 85027; 85045; 85379; 85384; 85520; 85610; 85730; 86022; 86704; 86706; 86850; 86891; 86900; 86901; 86920; 87040; 87086; 87340; 87635; 88305; 88311; 90935; 93306; 94002; 94640; 94660

== ENCOUNTER 2021-01-11 23:45 | Observation (INO) | payer BC, MEDICARE ==
[2021-01-12 00:38] LABS: Anisocytosis Slight; Basophils % (A) 0 %; Eosinophils # (A) 0.1 k/uL (0-0.7); Eosinophils % (A) 1 %; HCT 31.3 % (34.0-46.0); HGB 10.5 gm/dL (11.4-16.0); Hypochromasia Slight; Lymphocytes # (A) 0.8 k/uL (1.0-4.8); Lymphocytes % (A) 8 %; MCH 32.4 pg (25.0-35.0); MCHC 33.5 g/dL (31.0-37.0); MCV 96.7 fL (80.0-100.0); Macrocytosis Slight; Mean Platelet Volume 7.9; Monocytes # (A) 0.7 k/uL (0-1.0); Monocytes % (A) 7 %; Neutrophils # (A) 8.2 k/uL (1.3-7.7); Neutrophils % (A) 83 %; Platelet Count 301 k/uL (150-450); RBC 3.24 m/uL (3.80-5.40); RDW 16.4 % (11.5-15.5); WBC 9.9 k/uL (3.8-10.6)
--- NOTE | 2021-01-12 00:45 | ED ---
General Adult HPI - General Chief complaint: Recheck/Abnormal Lab/Rx Stated complaint: NSTEMI, Anemia Time Seen by Provider: 01/11/21 23:53 Source: patient, EMS Mode of arrival: EMS Limitations: no limitations - History of Present Illness Initial comments: This patient is a 65-year-old woman transferred here from [facility]. She underwent valve replacement and one vessel CABG here on , with Dr. Wolff. The postoperative course was complicated by renal failure. She has been there for rehabilitation stent since. The patient had been transferred to their emergency section earlier today after she had some shortness of breath and they noted some redness to her right lower leg near the graft harvest site. When I interview the patient, she states that the shortness of breath has not changed since she was discharged from the hospital and it sounds like it is mainly exertional when she is up. Patient denies chest pain. She has not noted fever or chills. She states she is tolerating oral intake. At the other facility, she was also noted to be slightly more anemic, with hemoglobin 8.3. Troponin was also mildly elevated 0.237. The patient was found have elevated d-dimer 11.[address] perform [address] of the chest which was negative for pulmonary embolism, but did reportedly show some patchy groundglass opacities greater on t he right than left concerning for atypical pneumonia and then also moderate bilateral pleural effusions. Patient was given Rocephin 1 g IV and azithromycin 500 mg prior to transfer. Onset/Timin -: days(s) Location: right, lower extremity Improves with: none Worsens with: none Associated Symptoms: shortness of breath Treatments Prior to Arrival: other (Antibiotics) - Related Data Home Medications Medication Instructions Recorded Confirmed Aspirin EC [Ecotrin Low Dose] 81 mg PO DAILY 01/12/21 01/12/21 Pantoprazole [Protonix] 40 mg PO HS 01/12/21 01/12/21 Previous Rx's Medication Instructions Recorded Acetaminophen Tab [Tylenol] 650 mg PO Q4HR PRN tab 01/10/21 Acetylcysteine [Mucomyst] 200 mg INHALATION RT-TID vial 01/10/21 Clopidogrel [Plavix] 75 mg PO DAILY tab 01/10/21 Furosemide [Lasix] 20 mg PO Q48H tab 01/10/21 Ipratropium-Albuterol Nebulize 3 ml INHALATION RT-Q2H PRN ml 01/10/21 [Duoneb 0.5 mg-3 mg/3 ml Soln] Ipratropium-Albuterol Nebulize 3 ml INHALATION RT-QID ml 01/10/21 [Duoneb 0.5 mg-3 mg/3 ml Soln] Levothyroxine Sodium [Synthroid] 25 mcg PO HS tab 01/10/21 Metoprolol Tartrate [Lopressor] 25 mg PO BID tab 01/10/21 Potassium Chloride ER [K-Dur 20] 20 meq PO Q48H tab.er.prt 01/10/21 Sertraline [Zoloft] 25 mg PO HS tab 01/10/21 amLODIPine [Norvasc] 5 mg PO DAILY tab 01/10/21 hydrALAZINE HCL [Apresoline] 25 mg PO TID tab 01/10/21 Allergies Allergy/AdvReac Type Severity Reaction Status Date / Time lactose AdvReac Nausea Verified 01/12/21 08:59 Review of Systems ROS Statement: Those systems with pertinent positive or pertinent negative responses have been documented in the HPI. ROS Other: All systems not noted in ROS Statement are negative. Constitutional: Denies: fever, chills, weakness Respiratory: Reports: as per HPI, dyspnea. Denies: cough, wheezes, hemoptysis Cardiovascular: Reports: dyspnea on exertion. Denies: chest pain, palpitations, edema, syncope Gastrointestinal: Denies: abdominal pain, vomiting, diarrhea Genitourinary: Denies: dysuria, hematuria Musculoskeletal: Denies: back pain Skin: Denies: rash Neurological: Denies: headache, weakness, numbness Past Medical History Past Medical History: CVA/TIA, Hyperlipidemia, Hypertension, Musculoskeletal Disorder, Thyroid Disorder Additional Past Medical History / Comment(s): Calcified aortic valve/bicuspid valve with a valve area of 0.5 cm, single-vessel coronary artery disease, history of CVA with right-sided blindness, hypertension, hyperlipidemia, back & right hip pain, hypothyroidism History of Any Multi-Drug Resistant Organisms: None Reported Past Surgical History: Section, Heart Catheterization Additional Past Surgical History / Comment(s): anibal feet,rt hand,c sect x2,breast bx Past Anesthesia/Blood Transfusion Reactions: No Reported Reaction Additional Past Anesthesia/Blood Transfusion Reaction / Comment(s): no hx blood transfusion Past Psychological History: No Psychological Hx Reported Smoking Status: Former smoker Past Alcohol Use History: None Reported Past Drug Use History: None Reported - Past Family History Mother Family Medical History: Cancer Additional Family Medical History / Comment(s): cervical Sister(s) Family Medical History: Cancer Additional Family Medical History / Comment(s): breast Father Family Medical History: Cancer Additional Family Medical History / Comment(s): colon General Exam Limitations: no limitations General appearance: alert, in no apparent distress Head exam: Present: atraumatic Eye exam: Present: normal appearance. Absent: scleral icterus, conjunctival injection Respiratory exam: Present: normal lung sounds bilaterally. Absent: respiratory distress, wheezes, rales, rhonchi, stridor Cardiovascular Exam: Present: regular rate, normal rhythm, normal heart sounds. Absent: systolic murmur, diastolic murmur, rubs, gallop GI/Abdominal exam: Present: soft. Absent: distended, tenderness, guarding, rebound, rigid, mass Extremities exam: Present: normal inspection, normal capillary refill. Absent: pedal edema, calf tenderness Back exam: Present: normal inspection. Absent: CVA tenderness (R), CVA te nderness (L) Neurological exam: Present: alert Skin exam: Present: warm, dry, intact, normal color. Absent: rash Course Vital Signs 01/11/21 01/12/21 01/12/21 23:47 04:43 07:44 Temperature 98 F 98.8 F Pulse Rate 72 79 87 Respiratory 18 18 16 Rate Blood Pressure 142/82 109/65 142/67 O2 Sat by Pulse 98 97 98 Oximetry 01/12/21 01/12/21 01/12/21 08:00 08:51 09:00 Temperature Pulse Rate 89 76 73 Respiratory 14 23 Rate Blood Pressure 142/67 138/56 O2 Sat by Pulse 98 100 Oximetry 01/12/21 01/12/21 01/12/21 09:07 10:00 11:00 Temperature 98 F Pulse Rate 73 73 74 Respiratory 24 24 Rate Blood Pressure 138/56 127/62 O2 Sat by Pulse 98 97 Oximetry EKG Findings - EKG Results: EKG: interpreted by ERMD, sinus rhythm, normal axis, normal QRS - Blocks, [place], Hypertrophy, ST Abn: AV and intraventricular conduction: 1 AV block Repolarization changes or abnormalities: nonspecific abnormality, ST segment, and/or T wave Medical Decision Making - Medical Decision Making I reviewed the case with Dr. Wolff, who requests patient be seen by interventional radiology, Regarding the pleural effusions - Lab Data Result diagrams: 01/12/21 00:09 01/12/21 00:09 Lab Results 01/11/21 01/12/21 01/12/21 Range/Units 00:09 00:09 00:09 WBC 9.9 (3.8-10.6) k/uL RBC 3.24 L (3.80-5.40) m/uL Hgb 10.5 L (11.4-16.0) gm/dL Hct 31.3 L (34.0-46.0) % MCV 96.7 (80.0-100.0) fL MCH 32.4 (25.0-35.0) pg MCHC 33.5 (31.0-37.0) g/dL RDW 16.4 H (11.5-15.5) % Plt Count 301 (150-450) k/uL MPV 7.9 Neutrophils % 83 % Lymphocytes % 8 % Monocytes % 7 % Eosinophils % 1 % Basophils % 0 % Neutrophils # 8.2 H (1.3-7.7) k/uL Lymphocytes # 0.8 L (1.0-4.8) k/uL Monocytes # 0.7 (0-1.0) k/uL Eosinophils # 0.1 (0-0.7) k/uL Basophils # 0.0 (0-0.2) k/uL Hypochromasia Slight Anisocytosis Slight Macrocytosis Slight Sodium 143 (137-145) mmol/L Potassium 4.8 (3.5-5.1) mmol/L Chloride 114 H (98-107) mmol/L Carbon Dioxide 21 L (22-30) mmol/L Anion Gap 8 mmol/L BUN 27 H (7-17) mg/dL Creatinine 0.93 (0.52-1.04) mg/dL Est GFR (CKD-EPI)AfAm 74 (>60 ml/min/1.73 sqM) Est GFR (CKD-EPI)NonAf 64 (>60 ml/min/1.73 sqM) Glucose 98 (74-99) mg/dL Calcium 9.1 (8.4-10.2) mg/dL Total Bilirubin 1.4 H (0.2-1.3) mg/dL AST 66 H (14-36) U/L ALT 134 H (4-34) U/L Alkaline Phosphatase 123 (38-126) U/L Troponin I (0.000-0.034) ng/mL Total Protein 6.3 (6.3-8.2) g/dL Albumin 3.3 L (3.5-5.0) g/dL Blood Type O Positive Blood Type Recheck O Pos Bld Type Recheck Status No Antibody Screen NEGATIVE Spec Expiration Date 01/14/2021 - 230801/12/21 Range/Units 00:09 WBC (3.8-10.6) k/uL RBC (3.80-5.40) m/uL Hgb (11.4-16.0) gm/dL Hct (34.0-46.0) % MCV (80.0-100.0) fL MCH (25.0-35.0) pg MCHC (31.0-37.0) g/dL RDW (11.5-15.5) % Plt Count (150-450) k/uL MPV Neutrophils % % Lymphocytes % % Monocytes % % Eosinophils % % Basophils % % Neutrophils # (1.3-7.7) k/uL Lymphocytes # (1.0-4.8) k/uL Monocytes # (0-1.0) k/uL Eosinophils # (0-0.7) k/uL Basophils # (0-0.2) k/uL Hypochromasia Anisocytosis Macrocytosis Sodium (137-145) mmol/L Potassium (3.5-5.1) mmol/L Chloride (98-107) mmol/L Carbon Dioxide (22-30) mmol/L Anion Gap mmol/L BUN (7-17) mg/dL Creatinine (0.52-1.04) mg/dL Est GFR (CKD-EPI)AfAm (>60 ml/min/1.73 sqM) Est GFR (CKD-EPI)NonAf (>60 ml/min/1.73 sqM) Glucose (74-99) mg/dL Calcium (8.4-10.2) mg/dL Total Bilirubin (0.2-1.3) mg/dL AST (14-36) U/L ALT (4-34) U/L Alkaline Phosphatase (38-126) U/L Troponin I 0.207 H* (0.000-0.034) ng/mL Total Protein (6.3-8.2) g/dL Albumin (3.5-5.0) g/dL Blood Type Blood Type Recheck Bld Type Recheck Status Antibody Screen Spec Expiration Date Disposition Clinical Impression: Cellulitis, Pleural effusion Disposition: DC/TRNS INTERMEDIATE CARE FAC Condition: Good Is patient prescribed a controlled substance at d/c from ED?: No
--- NOTE | 2021-01-12 01:40 | US ---
EXAM: US Duplex Right Lower Extremity Veins CLINICAL HISTORY: ITS.REASON US Reason: R/O DVT TECHNIQUE: Real-time duplex ultrasound scan of the right lower extremity veins integrating B-mode two-dimensional vascular structure, Doppler spectral analysis, color flow Doppler imaging and compression. COMPARISON: No relevant prior studies available. FINDINGS: Deep veins: Incompletely compressible common femoral vein with preserved color flow signal suggesting chronic, recanalized DVT in this location. No DVT in the visualized femoral, proximal deep femoral or popliteal veins, which demonstrate normal color flow, are normally compressible, with normal phasic flow and/or augmentation response. Superficial veins: Incompletely compressible proximal great saphenous vein with preserved color flow suggesting chronic, recanalized thrombus. Soft tissues: No acute findings. IMPRESSION: 1. No convincing evidence of acute DVT. 2. Suggestion of chronic, recanalized DVT in the common femoral vein extending into the great saphenous vein.
[2021-01-12 02:06] LABS: Albumin 3.3 g/dL (3.5-5.0); Calcium 9.1 mg/dL (8.4-10.2); Potassium 4.8 mmol/L (3.5-5.1); Total Bilirubin 1.4 mg/dL (0.2-1.3); Total Protein 6.3 g/dL (6.3-8.2)
[2021-01-12] MEDS ORDERED: FUROSEMIDE 10 MG/ML 4 ML VIAL IV STA (03:25)
[2021-01-12] MEDS ORDERED: ACETAMINOPHEN TAB 325 MG TAB PO PRN (06:14)
[2021-01-12] MEDS ORDERED: NALOXONE 0.4 MG/ML 1 ML VIAL IV PRN (06:14)
[2021-01-12] MEDS ORDERED: MORPHINE SULFATE 4 MG/ML SYRINGE IV PRN (06:14)
[2021-01-12] MEDS ORDERED: SODIUM CHLORIDE 0.9% 1,000 ML IV SCH (06:15)
[2021-01-12] MEDS ORDERED: PANTOPRAZOLE 40 MG TABLET PO SCH (07:30)
--- NOTE | 2021-01-12 08:15 | US ---
EXAMINATION TYPE: US chest DATE OF EXAM: 01/12/2021 COMPARISON: Correlation CT 8 01/11/2021 CLINICAL HISTORY: 65-year-old female to for thoracentesis. TECHNIQUE: Targeted ultrasound of the posterior lower bilateral hemithoraces FINDINGS: EXAM MEASUREMENTS: Right Pleural Effusion pocket size: 8.5 cm Right skin surface to fluid distance: 1.6 cm Left Pleural Effusion pocket size: 5.8 cm Left skin surface to fluid distance: 1.6 cm Right side marked for possible thoracentesis outside the dept. Left side marked for possible thoracentesis outside the dept. Pulmonologists are able to review the images in the patient?s EMR. IMPRESSIONS: Moderate right greater than left pleural effusions with adjacent atelectasis.
[2021-01-12] MEDS: IPRATROPIUM-ALBUTEROL 3 ML NEB INHALATION SCH ×2 (08:50→15:36)
[2021-01-12] MEDS: ACETYLCYSTEINE 800 MG/4 ML VIAL INHALATION SCH ×2 (08:50→15:37)
[2021-01-12] MEDS ORDERED: amLODIPine 5 MG TAB PO SCH (09:00)
[2021-01-12] MEDS ORDERED: hydrALAZINE HCL 25 MG TAB PO SCH (09:00)
[2021-01-12] MEDS ORDERED: METOPROLOL TARTRATE 25 MG TAB PO SCH (09:00)
[2021-01-12 09:38] LABS: Prothrombin Time 10.7 sec (9.0-12.0)
--- NOTE | 2021-01-12 10:33 | P.CNPUL ---
History of Present Illness Consult date: 01/12/21 Requesting physician: Dago Li Reason for consult: dyspnea, hypoxemia, pleural effusion, abnormal CXR/CT Chief complaint: Shortness of breath History of present illness: 65-year-old female who was discharged to couple days ago. The patient was recently in the hospital for a number days, having had an aortic valve replacement and single-vessel bypass grafting. The patient ended up at an outside hospital, for shortness of breath, and was transferred down to the ER here. A chest x-ray CAT scan and ultrasound were done, and revealed bilateral pleural effusions, more so on the right side than on the left. I was approached by the cardiothoracic surgeon who wanted need to consider doing a thoracentesis. We went ahead and looked at the imaging, and we decided to do a right-sided t horacentesis. 600 mL of bloody fluid was removed. The fluid was not sent for analysis. The patient tolerated the procedure well and a follow-up chest x-ray was ordered. The patient may be able to be discharged once the chest x-ray is done. We'll leave that up to the primary service. Past medical history is positive for CVA, hyperlipidemia, hypertension, hypothyroidism, recent aortic valve replacement and single-vessel bypass grafting, with a very corrina postoperative course. She was in the hospital for a number of days, with metabolic acidosis, shock liver, quite uropathy, etc. I saw her for the last few days of her hospitalization before she was discharged. White count 9.9, he will come 0.5, hematocrit 31.3, platelet count 301,000. The INR were normal. Sodium 143, potassium 4.8, chlorides 114, CO2 21, anion gap 8, BUN 27, creatinine 0.93. Albumin 3.3, and troponin was 0.207. X-rays CAT scans and ultrasounds were all reviewed. Review of Systems REVIEW OF SYSTEMS: CONSTITUTIONAL: [Negative.] NEUROLOGIC: [ Negative.] HEENT: [ Negative.] CARDIAC: [Negative.] PULMONARY: Shortness of breath. GI: [Negative.] : [Negative.] RHEUMATOLOGIC: [ Negative.] IMMUNOLOGIC: [ Negative.] ENDOCRINE: [Negative. ] DERMATOLOGIC: [Negative.] Past Medical History Past Medical History: CVA/TIA, Hyperlipidemia, Hypertension, Musculoskeletal Disorder, Thyroid Disorder Additional Past Medical History / Comment(s): Calcified aortic valve/bicuspid valve with a valve area of 0.5 cm, single-vessel coronary artery disease, history of CVA with right-sided blindness, hypertension, hyperlipidemia, back & right hip pain, hypothyroidism History of Any Multi-Drug Resistant Organisms: None Reported Past Surgical History: Section, Heart Catheterization Additional Past Surgical History / Comment(s): anibal feet,rt hand,c sect x2,breast bx Past Anesthesia/Blood Transfusion Reactions: No Reported Reaction Additional Past Anesthesia/Blood Transfusion Reaction / Comment(s): no hx blood transfusion Past Psychological History: No Psychological Hx Reported Smoking Status: Former smoker Past Alcohol Use History: None Reported Past Drug Use History: None Reported - Past Family History Mother Family Medical History: Cancer Additional Family Medical History / Comment(s): cervical Sister(s) Family Medical History: Cancer Additional Family Medical History / Comment(s): breast Father Family Medical History: Cancer Additional Family Medical History / Comment(s): colon Medications and Allergies Home Medications Medication Instructions Recorded Confirmed Type Acetaminophen Tab [Tylenol] 650 mg PO Q4HR PRN tab 01/10/21 01/12/21 Rx Acetylcysteine [Mucomyst] 200 mg INHALATION RT-TID vial 01/10/21 01/12/21 Rx Cefepime [Maxipime] 1 gm IVPB Q12HR 3 Days vial 01/10/21 01/12/21 Rx Clopidogrel [Plavix] 75 mg PO DAILY tab 01/10/21 01/12/21 Rx Furosemide [Lasix] 20 mg PO Q48H tab 01/10/21 01/12/21 Rx Ipratropium-Albuterol Nebulize 3 ml INHALATION RT-Q2H PRN ml 01/10/21 01/12/21 Rx [Duoneb 0.5 mg-3 mg/3 ml Soln] Ipratropium-Albuterol Nebulize 3 ml INHALATION RT-QID ml 01/10/21 01/12/21 Rx [Duoneb 0.5 mg-3 mg/3 ml Soln] Levothyroxine Sodium [Synthroid] 25 mcg PO HS tab 01/10/21 01/12/21 Rx Metoprolol Tartrate [Lopressor] 25 mg PO BID tab 01/10/21 01/12/21 Rx Potassium Chloride ER [K-Dur 20] 20 meq PO Q48H tab.er.prt 01/10/21 01/12/21 Rx Sertraline [Zoloft] 25 mg PO HS tab 01/10/21 01/12/21 Rx amLODIPine [Norvasc] 5 mg PO DAILY tab 01/10/21 01/12/21 Rx hydrALAZINE HCL [Apresoline] 25 mg PO TID tab 01/10/21 01/12/21 Rx Aspirin EC [Ecotrin Low Dose] 81 mg PO DAILY 01/12/21 01/12/21 History Pantoprazole [Protonix] 40 mg PO HS 01/12/21 01/12/21 History Allergies Allergy/AdvReac Type Severity Reaction Status Date / Time lactose AdvReac Nausea Verified 01/12/21 08:59 Physical Exam Osteopathic Statement: *. No significant issues noted on an osteopathic structural exam other than those noted in the History and Physical/Consult. Vitals: Vital Signs Temp Pulse Resp BP Pulse Ox 01/12/21 09:07 73 01/12/21 08:51 76 01/12/21 08:00 89 14 142/67 98 01/12/21 07:44 98.8 F 87 16 142/67 98 01/12/21 04:43 79 18 109/65 97 01/11/21 23:47 98 F 72 18 142/82 98 Intake and Output 01/11/21 01/12/21 01/12/21 22:59 06:59 14:59 Other: Weight 62.142 kg No acute distress, oriented 3. Currently on 2 L nasal O2. HEENT examination is grossly unremarkable. Mucous membranes are moist. No oral lesions. Neck supple. Full range of motion. No adenopathy thyromegaly or neck vein distention. Cardiovascular examination reveals regular rhythm rate. S1-S2 normal. No S3 or S4. No discernible murmur noted. Heart rate 73 bpm. Lungs reveal diminished breath sounds at both bases, dullness at both bases on percussion. No wheezes rhonchi or crackles. Abdomen soft bowel sounds are heard. No masses or tenderness. Extremities are intact. No cyanosis clubbing or edema. Skin is without rash or lesion. Neurologic examination is brief but nonfocal. Results - Laboratory Findings CBC and BMP: 01/12/21 00:09 01/12/21 00:09 PT/INR, D-dimer PT 10.7 sec (9.0-12.0) 01/12/21 09:02 INR 1.0 (<1.2) 01/12/21 09:02 Abnormal lab findings: Abnormal Labs 01/12/21 01/12/21 01/12/21 00:09 00:09 00:09 RBC 3.24 L Hgb 10.5 L Hct 31.3 L RDW 16.4 H Neutrophils # 8.2 H Lymphocytes # 0.8 L Chloride 114 H Carbon Dioxide 21 L BUN 27 H Total Bilirubin 1.4 H AST 66 H ALT 134 H Troponin I 0.207 H* Albumin 3.3 L - Diagnostic Findings Chest x-ray: image reviewed CT scan - chest: image reviewed Assessment and Plan Assessment: Worsening shortness of breath with hypoxemia, secondary to bilateral pleural effusions, right greater than left. Status post right-sided thoracentesis, with 600 mL removed. Recent aortic valve replacement and single-vessel bypass grafting, with corrina postoperative course. History of CVA. History of hyperlipidemia. History of hypertension. History of hypothyroidism. Chronic back and hip pain. Plan: Plan dated 01/12/2021. The patient was evaluated. I spoke to the cardiothoracic surgeon about the patient. We will review the images. The patient underwent a right-sided thoracentesis. It was uneventful. 600 mL of brown/red fluid was removed from the right pleural space. A follow-up chest x-ray was ordered. The patient tolerated the procedure well. I believe the plan is to potentially discharge patient back home. Additional recommendations and suggestions are forthcoming. The fluid was not sent for analysis as per the request of the surgeon. Time with Patient: Greater than 30
--- NOTE | 2021-01-12 10:52 | P.GSHP ---
History of Present Illness H&P Date: 01/12/21 Chief Complaint: Shortness of breath This is a 65-year-old female patient who follows on an outpatient basis with Dr. Dago Li for primary care and Dr. VIKAS Lee for cardiology. She has a previous medical history of known heart murmur with severe bicuspid aortic valve stenosis and coronary artery disease status post aortic valve replacement and single-vessel CABG 12/26/2020 with postoperative acute blood loss anemia requiring transfusion, hypotension, acute kidney injury, shock liver, lactic acidosis, hypoxic respiratory failure, thrombocytopenia, atrial fibrillation, coagulopathy, and left-sided hemothorax status post thoracentesis; hypertension, hyperlipidemia, hypothyroidism, CVA in 2004 followed by TIA, right internal carotid artery stenosis 50-79%, and previous tobacco dependence. She was discharged from [facility] 01/10/2021 to [facility] for rehabilitation. Apparently she had some shortness of breath and noted redness to the right lower extremity endovascular vein harvest site. She was transferred to the emergency room at [facility], underwent CTA which was negative for pulmonary embolism but did demonstrate bilateral pleural effusions. She was transferred to [facility] emergency room for further evaluation and treatment. Venous Dopplers were completed demonstrating no acute DVT. Chest ultrasound was completed demonstrating right sided fluid pocket 8.5 cm and left-sided fluid pocket 5.8 cm. EKG was completed demonstrates sinus rhythm with first-degree AV block without significant ischemic changes, comparable to her EKGs prior to discharge. White blood cell count 9.9 , hemoglobin 10.5, platelet count 301,000, INR 1.0, BUN 27, creatinine 0.93, AST 66, ALT 134, troponin 0.207. Her labs have all improved since discharge. The patient states her shortness of breath is not significantly different from when she was discharged. We have asked pulmonology to perform thoracentesis. - Review of Systems Comment: Review of systems was completed and was negative except as noted - Cardiovascular Cardiovascular: Reports as per HPI, Reports dyspnea on exertion - Respiratory Respiratory: Reports as per HPI, Reports dyspnea Past Medical History Past Medical History: Coronary Artery Disease (CAD), CVA/TIA, Hyperlipidemia, Hypertension, Musculoskeletal Disorder, Thyroid Disorder Additional Past Medical History / Comment(s): Calcified aortic valve/bicuspid valve with a valve area of 0.5 cm, single-vessel coronary artery disease, history of CVA with right-sided blindness, hypertension, hyperlipidemia, back & right hip pain, hypothyroidism History of Any Multi-Drug Resistant Organisms: None Reported Past Surgical History: Cardiac Valve Replacement, Section, Coronary Bypass/CABG, Heart Catheterization Additional Past Surgical History / Comment(s): anibal feet,rt hand,c sect x2,breast bx; aortic valve replacement with #21 mm Jackson Inspiris bioprosthetic aortic valve and single-vessel CABG with vein graft to the right coronary artery on 12/26/2020 Past Anesthesia/Blood Transfusion Reactions: No Reported Reaction Additional Past Anesthesia/Blood Transfusion Reaction / Comment(s): no hx blood transfusion Past Psychological History: No Psychological Hx Reported Smoking Status: Former smoker Past Alcohol Use History: None Reported Past Drug Use History: None Reported - Past Family History Mother Family Medical History: Cancer Additional Family Medical History / Comment(s): cervical Sister(s) Family Medical History: Cancer Additional Family Medical History / Comment(s): breast Father Family Medical History: Cancer Additional Family Medical History / Comment(s): colon Medications and Allergies Home Medications Medication Instructions Recorded Confirmed Type Acetaminophen Tab [Tylenol] 650 mg PO Q4HR PRN tab 01/10/21 01/12/21 Rx Acetylcysteine [Mucomyst] 200 mg INHALATION RT-TID vial 01/10/21 01/12/21 Rx Cefepime [Maxipime] 1 gm IVPB Q12HR 3 Days vial 01/10/21 01/12/21 Rx Clopidogrel [Plavix] 75 mg PO DAILY tab 01/10/21 01/12/21 Rx Furosemide [Lasix] 20 mg PO Q48H tab 01/10/21 01/12/21 Rx Ipratropium-Albuterol Nebulize 3 ml INHALATION RT-Q2H PRN ml 01/10/21 01/12/21 Rx [Duoneb 0.5 mg-3 mg/3 ml Soln] Ipratropium-Albuterol Nebulize 3 ml INHALATION RT-QID ml 01/10/21 01/12/21 Rx [Duoneb 0.5 mg-3 mg/3 ml Soln] Levothyroxine Sodium [Synthroid] 25 mcg PO HS tab 01/10/21 01/12/21 Rx Metoprolol Tartrate [Lopressor] 25 mg PO BID tab 01/10/21 01/12/21 Rx Potassium Chloride ER [K-Dur 20] 20 meq PO Q48H tab.er.prt 01/10/21 01/12/21 Rx Sertraline [Zoloft] 25 mg PO HS tab 01/10/21 01/12/21 Rx amLODIPine [Norvasc] 5 mg PO DAILY tab 01/10/21 01/12/21 Rx hydrALAZINE HCL [Apresoline] 25 mg PO TID tab 01/10/21 01/12/21 Rx Aspirin EC [Ecotrin Low Dose] 81 mg PO DAILY 01/12/21 01/12/21 History Pantoprazole [Protonix] 40 mg PO HS 01/12/21 01/12/21 History Allergies Allergy/AdvReac Type Severity Reaction Status Date / Time lactose AdvReac Nausea Verified 01/12/21 08:59 Surgical - Exam Vital Signs Temp Pulse Resp BP Pulse Ox 98 F 72 18 142/82 98 01/11/21 23:47 01/11/21 23:47 01/11/21 23:47 01/11/21 23:47 01/11/21 23:47 CONSTITUTIONAL: Awake and alert, appears comfortable, cooperative, well- developed, well-nourished, no pain, no acute distress EYES: Pupils equal, round, reactive to light, normal ocular movement ENT: Moist mucous membranes without oral lesions present NECK: No masses, no bruits, trachea midline RESPIRATORY: Lungs sounds diminished bilaterally, right greater than left. Respirations even, nonlabored. Currently on 2 L nasal cannula for patient comfort with oxygen saturation 97%. Strong cough. CARDIOVASCULAR: S1, S2 present. Sternum stable. Regular rate and rhythm, sinus rhythm on telemetry. Palpable peripheral pulses bilaterally. No edema present. No calf pain or tenderness noted. Heart hugger in place with patient demonstrating appropriate use. GASTROINTESTINAL: Abdomen soft, nontender, nondistended without masses or organomegaly noted. There is no rebound or guarding present. Active bowel bridgett nds present 4 quadrants. GENITOURINARY: Deferred INTEGUMENTARY: Skin is warm and dry with evidence of good perfusion. Anterior chest incision well approximated without redness or drainage. Right lower extremity EVH site well approximated without redness or drainage. NEUROLOGIC: Cranial nerves II through XII intact, normal coordination, no obvious motor or sensory deficits, speech is normal MUSKULOSKELETAL: Able to move all extremities, strength equal bilaterally, normal posture PSYCHIATRIC: Alert and oriented to person place and time, appropriate affect, intact judgment and insight Results - Labs 01/12/21 00:09 01/12/21 00:09 Abnormal Lab Results - Last 24 Hours (Table) 01/12/21 01/12/21 01/12/21 Range/Units 00:09 00:09 00:09 RBC 3.24 L (3.80-5.40) m/uL Hgb 10.5 L (11.4-16.0) gm/dL Hct 31.3 L (34.0-46.0) % RDW 16.4 H (11.5-15.5) % Neutrophils # 8.2 H (1.3-7.7) k/uL Lymphocytes # 0.8 L (1.0-4.8) k/uL Chloride 114 H (98-107) mmol/L Carbon Dioxide 21 L (22-30) mmol/L BUN 27 H (7-17) mg/dL Total Bilirubin 1.4 H (0.2-1.3) mg/dL AST 66 H (14-36) U/L ALT 134 H (4-34) U/L Troponin I 0.207 H* (0.000-0.034) ng/mL Albumin 3.3 L (3.5-5.0) g/dL Diabetes panel 01/12/21 Range/Units 00:09 Sodium 143 (137-145) mmol/L Potassium 4.8 (3.5-5.1) mmol/L Chloride 114 H (98-107) mmol/L Carbon Dioxide 21 L (22-30) mmol/L BUN 27 H (7-17) mg/dL Creatinine 0.93 (0.52-1.04) mg/dL Glucose 98 (74-99) mg/dL Calcium 9.1 (8.4-10.2) mg/dL AST 66 H (14-36) U/L ALT 134 H (4-34) U/L Alkaline Phosphatase 123 (38-126) U/L Total Protein 6.3 (6.3-8.2) g/dL Albumin 3.3 L (3.5-5.0) g/dL Calcium panel 01/12/21 Range/Units 00:09 Calcium 9.1 (8.4-10.2) mg/dL Albumin 3.3 L (3.5-5.0) g/dL Pituitary panel 01/12/21 Range/Units 00:09 Sodium 143 (137-145) mmol/L Potassium 4.8 (3.5-5.1) mmol/L Chloride 114 H (98-107) mmol/L Carbon Dioxide 21 L (22-30) mmol/L BUN 27 H (7-17) mg/dL Creatinine 0.93 (0.52-1.04) mg/dL Glucose 98 (74-99) mg/dL Calcium 9.1 (8.4-10.2) mg/dL Adrenal panel 01/12/21 Range/Units 00:09 Sodium 143 (137-145) mmol/L Potassium 4.8 (3.5-5.1) mmol/L Chloride 114 H (98-107) mmol/L Carbon Dioxide 21 L (22-30) mmol/L BUN 27 H (7-17) mg/dL Creatinine 0.93 (0.52-1.04) mg/dL Glucose 98 (74-99) mg/dL Calcium 9.1 (8.4-10.2) mg/dL Total Bilirubin 1.4 H (0.2-1.3) mg/dL AST 66 H (14-36) U/L ALT 134 H (4-34) U/L Alkaline Phosphatase 123 (38-126) U/L Total Protein 6.3 (6.3-8.2) g/dL Albumin 3.3 L (3.5-5.0) g/dL - Imaging Chest x-ray: report reviewed, image reviewed CT scan - chest: report reviewed, image reviewed EKG: image reviewed Assessment and Plan Assessment: 1. Shortness of breath, bilateral pleural effusions 2. Known heart murmur with severe bicuspid aortic valve stenosis and coronary artery disease status post aortic valve replacement and single-vessel CABG 12/26/2020 3. Previous left-sided thoracentesis for hemothorax, expected anemia 4. Hypertension 5. Hyperlipidemia 6. Hypothyroidism 7. CVA in 2004 followed by TIA, right internal carotid artery stenosis 50-79% 8. Previous tobacco dependence. Plan: The patient was seen and examined at the bedside in the emergency room. Chart/diagnostics reviewed with Dr. Chen and Dr. Rodriguez including chest x-ray and computed tomography scan from [facility]. All symptoms described for which patient was transported to [facility] are normal postoperative experiences after open heart surgery. We did however ask Dr. Rodriguez to complete a thoracentesis as the patient is already here. He did remove 600 mL from the right lung. From our standpoint the patient does not need to be admitted and may be returned either to [facility] or to another facility of her choice when bed is available. She will be discharged on the same medications, she is to see Dr. Wolff in the office 01/19/2021 at 2 PM, and she may follow-up with her primary care, mounter, and purse seiner upon discharge from rehab. Sternal precautions remain and the same discharge instructions should be followed. Please call our service with the provided numbers prior to sending the patient back to the hospital. Time with Patient: Greater than 30
--- NOTE | 2021-01-12 10:53 | PCN ---
PROCEDURE NOTE PULMONARY/CRITICAL CARE PROCEDURE: PROCEDURE: Right thoracentesis. PREOPERATIVE DIAGNOSIS: Right pleural effusion. POSTOP DIAGNOSIS: Right pleural effusion. OPERATORS: Dr. Rodriguez and Dr. Caruso. Indication Pleural effusion. A time-out was completed verifying correct patient, procedure, site, positioning , and implant (s) or special equipment if applicable. Ultrasound guidance was used and appropriate fluid pocket was identified and marked. Patient was positioned, prepped and draped in usual sterile fashion. Lidocaine was used to anesthetize the area. A Thoracentesis catheter was introduced into the pleural space and fluid was removed. Blood loss was none. A chest x-ray was ordered to evaluate for pneumothorax. Total Fluid Removed: 600 mL. Color of Fluid: Reddish brown fluid. Fluid was not sent for appropriate laboratory tests. Patient tolerated the procedure well and there were no complications. The posterior chest on the right was marked. The fluid was not sent for analysis. 600 mL of reddish brown fluid was removed from the right pleural space. The patient tolerated the procedure well. There was no immediate complication. A chest x- ray was ordered to rule out pneumothorax. The fluid will not be sent for analysis. There was no immediate complication. Chest x-ray was ordered. MMODL / IJN: [id number] / [id number]
[2021-01-12 11:04] VITALS: BP 127/62; PULSE 74; TEMP 98
[2021-01-12 11:05] VITALS: RESP 24
[2021-01-12] MEDS ORDERED: CLOPIDOGREL 75 MG TAB PO SCH (11:15)
--- NOTE | 2021-01-12 13:32 | XR ---
EXAMINATION TYPE: XR chest 1V portable DATE OF EXAM: 01/12/2021 COMPARISON: 01/10/2021 HISTORY: Status post thoracentesis TECHNIQUE: Single frontal view of the chest is obtained. FINDINGS: No sizable pneumothorax. There is persistent bilateral consolidation and pleural effusion with cardiomegaly and postoperative change. No pneumothorax. Mild diffuse interstitial pattern. IMPRESSION: Bilateral pleural effusion and consolidation with no sizable pneumothorax. Correlate for mild CHF.
[2021-01-12] MEDS ORDERED: SERTRALINE 25 MG TAB PO SCH (21:00)
[2021-01-12] MEDS ORDERED: LEVOTHYROXINE 25 MCG TAB PO SCH (21:00)
== END 2021-01-12 15:41 ==
LOC: EC 23:45 → 3SCARD 01-12 06:16
PROVIDERS: ADMIT Thoracic Surgery (Cardiothoracic Vascular Surgery); ATTEND Thoracic Surgery (Cardiothoracic Vascular Surgery)
DX: J90 Pleural effusion, not elsewhere classified (principal); I25.10 Atherosclerotic heart disease of native coronary artery without angina pectoris; Q23.1 Congenital insufficiency of aortic valve; D64.9 Anemia, unspecified; J94.2 Hemothorax; I10 Essential (primary) hypertension; E78.5 Hyperlipidemia, unspecified; E03.9 Hypothyroidism, unspecified; I65.21 Occlusion and stenosis of right carotid artery; R09.02 Hypoxemia; R79.89 Other specified abnormal findings of blood chemistry; L03.90 Cellulitis, unspecified; M25.551 Pain in right hip; H54.61 Unqualified visual loss, right eye, normal vision left eye; Z95.1 Presence of aortocoronary bypass graft; Z95.3 Presence of xenogenic heart valve; Z86.73 Personal history of transient ischemic attack (TIA), and cerebral infarction without residual deficits; Z87.891 Personal history of nicotine dependence; Z91.011 Allergy to milk products; Z79.82 Long term (current) use of aspirin; Z79.899 Other long term (current) drug therapy; Z79.890 Hormone replacement therapy; Z79.02 Long term (current) use of antithrombotics/antiplatelets; Z80.49 Family history of malignant neoplasm of other genital organs; Z80.3 Family history of malignant neoplasm of breast; Z80.0 Family history of malignant neoplasm of digestive organs
CPT/HCPCS: 32555; 96374; 99285; 36415; 94640; 86900; 86901; 80053; 84484; 85025; 85610; 86850; 71045; 76604; 93971; G0378; J1940

== ENCOUNTER → 2021-02-26 | Outpatient (CLI) | payer BC ==
[2021-02-26 14:44] LABS: African American GFR (CKD) 88.4 (60.0-200.0); Albumin/Globulin Ratio 1.67 (1.60-3.17); Anion Gap 5.5 mmol/L (4.00-12.00); BUN/Creat Ratio 11.25 Ratio (12.00-20.00); Calcium 9.4 mg/dL (8.7-10.3); Carbon Dioxide 29.5 mmol/L (21.6-31.8); Globulin 2.4 g/dL (1.6-3.3); HGB 9.4 g/dL (12.0-15.0); MCH 30.6 pg (27.0-32.0); MCHC 30.3 g/dL (32.0-37.0); Mean Platelet Volume 10.1 fL (9.5-12.2); Non-African American GFR(CKD) 76.3 (60.0-200.0); Platelet Count 312 X 10*3/uL (140-440); Potassium 4.7 mmol/L (3.5-5.5); RBC 3.07 X 10*6/uL (4.10-5.20); RDW 14.6 % (11.5-14.5); Total Bilirubin 0.4 mg/dL (0.3-1.2); Total Protein 6.4 g/dL (6.2-8.2); WBC 8.22 X 10*3/uL (4.50-10.00)
== END | disposition home or self-care (01) ==
LOC: LABWHC1 09:38
PROVIDERS: ATTEND Internal Medicine Interventional Cardiology
DX: I10 Essential (primary) hypertension (principal); I25.10 Atherosclerotic heart disease of native coronary artery without angina pectoris
CPT/HCPCS: 36415; 80053; 84439; 84443; 85027